=== PATIENT | male | born 1950 | race Caucasian/White ===

== ENCOUNTER 2017-05-22 21:23 | Emergency (ER) | payer MEDICARE, MEDICAID ==
[~2017-05-22] VITALS: Ht 172.7 cm; Wt 99.8 kg
--- NOTE | 2017-05-22 21:52 | ED General ---
General Stated Complaint: HEADACHE;TROUBLE SLEEPING;NAUSEA Source of Information: Patient Exam Limitations: No Limitations History of Present Illness Time Seen by Provider: 21:51 Initial Comments To ER with a severe headache form 2 days, intermittent abdominal pain since this morning, sleeplessness for 3 days.: He was seen at [facility] this morning without diagnosis. Coincidentally, he ran out of his 30 mg morphine tablets which he takes twice a day 3-1/2 days ago. Timing/Duration: 1-2 Days Associated Systoms: Headaches, Nausea/Vomiting Allergies and Home Medications Allergies Coded Allergies: No Known Allergies (Verified Allergy, Unknown, 01/15/07) Constitutional: see HPI, diaphoresis EENTM: see HPI Respiratory: no symptoms reported Cardiovascular: no symptoms reported Gastrointestinal: abdominal pain (intermittent abdominal cramping) Genitourinary: no symptoms reported Musculoskeletal: see HPI, back pain (chronic and unchanged) Skin: no symptoms reported Psychiatric/Neurological: No Symptoms Reported Hematologic/Lymphatic: No Symptoms Reported Immunological/Allergic: no symptoms reported Past Kuhqdmn-Psjbud-Luiazk Hx Patient Social History Recent Foreign Travel: No Contact w/Someone Who Travel: No Physical Exam Vital Signs Vital Sign - Last 12Hours 05/22/17 21:41 Temp 98.5 Pulse 70 Resp 28 B/P (MAP) 170/80 Pulse Ox 96 O2 Delivery Room Air Capillary Refill : General Appearance: No Apparent Distress, WD/WN Eyes: Bilateral Eye Normal Inspection, Bilateral Eye PERRL, Bilateral Eye EOMI HEENT: PERRL/EOMI, TMs Normal Respiratory: No Accessory Muscle Use, No Respiratory Distress Cardiovascular: Regular Rate, Rhythm, Normal Peripheral Pulses Gastrointestinal: Non Tender, Soft Extremity: Normal Capillary Refill, No Calf Tenderness Neurologic/Psychiatric: Alert, Oriented x3, No Motor/Sensory Deficits Skin: Normal Color, Warm/Dry Progress/Results/Core Measures Results/Orders Lab Results Laboratory Tests Test 05/22/17 21:44 05/22/17 22:15 Range/Units White Blood Count 8.4 4.3-11.0 10^3/uL Red Blood Count 4.49 4.35-5.85 10^6/uL Hemoglobin 14.0 13.3-17.7 G/DL Hematocrit 41 40-54 % Mean Corpuscular Volume 91 80-99 FL Mean Corpuscular Hemoglobin 31 25-34 PG Mean Corpuscular Hemoglobin Concent 34 32-36 G/DL Red Cell Distribution Width 13.3 10.0-14.5 % Platelet Count 263 130-400 10^3/uL Mean Platelet Volume 10.8 H 7.4-10.4 FL Neutrophils (%) (Auto) 53 42-75 % Lymphocytes (%) (Auto) 34 12-44 % Monocytes (%) (Auto) 10 0-12 % Eosinophils (%) (Auto) 3 0-10 % Basophils (%) (Auto) 1 0-10 % Neutrophils # (Auto) 4.5 1.8-7.8 X 10^3 Lymphocytes # (Auto) 2.8 1.0-4.0 X 10^3 Monocytes # (Auto) 0.8 0.0-1.0 X 10^3 Eosinophils # (Auto) 0.3 0.0-0.3 10^3/uL Basophils # (Auto) 0.1 0.0-0.1 10^3/uL Sodium Level 138 135-145 MMOL/L Potassium Level 3.9 3.6-5.0 MMOL/L Chloride Level 107 98-107 MMOL/L Carbon Dioxide Level 20 L 21-32 MMOL/L Anion Gap 11 5-14 MMOL/L Blood Urea Nitrogen 17 7-18 MG/DL Creatinine 1.37 H 0.60-1.30 MG/DL Estimat Glomerular Filtration Rate 52 BUN/Creatinine Ratio 12 Glucose Level 115 H 70-105 MG/DL Calcium Level 9.6 8.5-10.1 MG/DL Total Bilirubin 1.2 H 0.1-1.0 MG/DL Aspartate Amino Transf (AST/SGOT) 63 H 5-34 U/L Alanine Aminotransferase (ALT/SGPT) 49 0-55 U/L Alkaline Phosphatase 161 H 40-136 U/L Total Protein 8.2 6.4-8.2 GM/DL Albumin 3.9 3.2-4.5 GM/DL Urine Color YELLOW Urine Clarity CLEAR Urine pH 5 5-9 Urine Specific [place] 1.015 L 1.016-1.022 Urine Protein 1+ H NEGATIVE Urine Glucose (UA) NEGATIVE NEGATIVE Urine Ketones NEGATIVE NEGATIVE Urine Nitrite NEGATIVE NEGATIVE Urine Bilirubin NEGATIVE NEGATIVE Urine Urobilinogen 1 NORMAL MG/DL Urine Leukocyte Esterase NEGATIVE NEGATIVE Urine RBC (Auto) NEGATIVE NEGATIVE Urine RBC NONE /HPF Urine WBC NONE /HPF Urine Crystals NONE /LPF Urine Bacteria NONE /HPF Urine Casts NONE /LPF Urine Mucus NEGATIVE /LPF Urine Culture Indicated NO My Orders Orders - EMELY BREEN APRN Morphine Injection (Morphine Injection (05/22/17 22:00) Cbc With Automated Diff (05/22/17 21:49) Comprehensive Metabolic Panel (05/22/17 21:49) Saline Lock/Iv-Start (05/22/17 21:49) Ua Culture If Indicated (05/22/17 21:49) Ct Head Wo (05/22/17 21:49) Ns Iv 1000 Ml (Sodium Chloride 0.9%) (05/22/17 22:45) Ondansetron Injection (Zofran Injectio (05/22/17 22:45) Morphine Er Tablet (Ms Contin Tablet) (05/22/17 22:45) Clonidine Patch (Catapres Patch) (05/22/17 22:45) Medications Given in ED Current Medications Medications Dose Ordered Sig/Marly Route Start Time Stop Time Status Last Admin Dose Admin Morphine Sulfate 6 mg ONCE ONCE IVP 05/22/17 22:00 05/22/17 22:01 DC 05/22/17 22:15 6 MG Vital Signs/I&O Vital Sign - Last 12Hours 05/22/17 21:41 Temp 98.5 Pulse 70 Resp 28 B/P (MAP) 170/80 Pulse Ox 96 O2 Delivery Room Air Departure Communication Progress Notes He states that he can get his pain pills filled every 28 days and she tracks the supply. Most recently was filled on so he is actually due to be refilled. He states "I don't know why I didn't get them filled earlier this week 9-CT scan per stat read shows no acute hemorrhage, midline shift, mass effect or hydrocephalus. Mild generalized atrophy and presumed small vessel chronic ischemic changes, visualized paranasal sinuses and mastoid air cells are clear. There is no identifiable acute intracranial abnormality or source of the patient's headache today. " Impression Impression: Primary Impression: Opiate withdrawal Disposition: HOME, SELF-CARE Condition: Stable Departure-Patient Inst. Decision time for Depature: 22:47 Referrals: DENICE MEDINA DO (PCP/Family) Primary Care Physician Patient Instructions: Prescription Drug Withdrawal (DC) Add. Discharge Instructions: 1. Call replaced by [facility] tomorrow morning at 8 a.m. to tell them that you have run out of your morphine tablets and they were due to be refilled a few days ago. Copy Copies To 1: DERRELL MCBRIDE MD, PETER J APRN May 22, 2017 21:52
[2017-05-22] MEDS ORDERED: morphine INJ 10 MG/ML 1ML (SYR OR VIAL) IVP ONE (22:00)
[2017-05-22 22:12] LABS: BASOPHILS # (AUTO) 0.1 10^3/uL (0.0-0.1); BASOPHILS % (AUTO) 1 % (0-10); EOSINOPHILS # (AUTO) 0.3 10^3/uL (0.0-0.3); EOSINOPHILS % (AUTO) 3 % (0-10); LYMPHOCYTES # (AUTO) 2.8 X 10^3 (1.0-4.0); LYMPHOCYTES % (AUTO) 34 % (12-44); MEAN CORPUSCULAR HEMOGLOBIN 31 PG (25-34); MEAN CORPUSCULAR HGB CONC 34 G/DL (32-36); MEAN CORPUSCULAR VOLUME 91 FL (80-99); MEAN PLATELET VOLUME 10.8 FL (7.4-10.4); MONOCYTES # (AUTO) 0.8 X 10^3 (0.0-1.0); MONOCYTES % (AUTO) 10 % (0-12); NEUTROPHILS # (AUTO) 4.5 X 10^3 (1.8-7.8); NEUTROPHILS % (AUTO) 53 % (42-75); PLATELET COUNT 263 10^3/uL (130-400); RED BLOOD COUNT 4.49 10^6/uL (4.35-5.85); RED CELL DISTRIBUTION WIDTH 13.3 % (10.0-14.5); WHITE BLOOD COUNT 8.4 10^3/uL (4.3-11.0)
[2017-05-22 22:22] LABS: ALBUMIN 3.9 GM/DL (3.2-4.5); BILIRUBIN,TOTAL 1.2 MG/DL (0.1-1.0); CALCIUM 9.6 MG/DL (8.5-10.1); CREATININE SERUM 1.37 MG/DL (0.60-1.30); POTASSIUM 3.9 MMOL/L (3.6-5.0); TOTAL PROTEIN 8.2 GM/DL (6.4-8.2)
[2017-05-22 22:32] LABS: BILIRUBIN,URINE NEGATIVE (NEGATIVE); KETONES,URINE NEGATIVE (NEGATIVE); LEUKOCYTE ESTERASE ,URINE NEGATIVE (NEGATIVE); NITRITE,URINE NEGATIVE (NEGATIVE); PH,URINE 5 (5-9); PROTEIN,URINE 1+ (NEGATIVE); UROBILINOGEN,URINE 1 MG/DL (NORMAL)
[2017-05-22] MEDS ORDERED: NS IV 1000 ML 1,000 ML IV SCH (22:45)
[2017-05-22] MEDS ORDERED: ONDANSETRON 4 MG/2 ML (SDV) Z0FRAN IVP ONE (22:45)
[2017-05-22] MEDS ORDERED: morphine ER 30 MG (MS CONTIN) TAB PO ONE (22:45)
[2017-05-22] MEDS ORDERED: cloNIDine 0.1 MG PATCH (CATAPRES TTS) TDSY TD ONE (22:45)
[2017-05-23 00:02] VITALS: BP 157/77
--- NOTE | 2017-05-23 08:04 | Diagnostic Imaging Report ---
PROCEDURE: CT head without contrast. TECHNIQUE: Multiple contiguous axial images were obtained through the brain without the use of intravenous contrast. INDICATION: Headache, unable to sleep. Stomach issues for 3 days. EXAMINATION: CT brain without contrast, 05/22/2017. COMPARISONS: None. FINDINGS: There is mild atrophy. There is no evidence for acute hemorrhage or infarct. No mass, mass effect or midline shift is seen and there is no hydrocephalus. Mild chronic ischemic changes seen in periventricular distribution. The calvarium is intact. The paranasal sinuses clear. Mastoid air cells are unremarkable. IMPRESSION: 1. Chronic change. No acute abnormality. Findings agree with the preliminary report. Dictated by: Dictated on workstation # [id number]
== END 2017-05-23 00:02 | disposition home or self-care (01) ==
LOC: EDUNIT# 21:23 → ER 21:26
DX: F11.23 Opioid dependence with withdrawal (principal)
CPT/HCPCS: 36415; 70450; 80053; 81000; 85025; 96374; 96375

== ENCOUNTER → 2017-07-28 | Outpatient (CLI) | payer MEDICARE, MEDICAID ==
[~2017-07-28] MED LIST: ATOR20TA66 PO; BACL20TA PO; CIPR500T4 PO; GABA-488; INSU100I14 SQ; INSU100I29 SQ; LACT20SO2 PO; LISI-552 PO; LORA1TAB PO; METO50TA2 PO; MORP-33; NABU500T PO; OMEP20CA12 PO; ONDA4TAB10 PO
[2017-07-28 17:04] LABS: BASOPHILS % (AUTO) 1 % (0-10); EOSINOPHILS # (AUTO) 0.2 10^3/uL (0.0-0.3); EOSINOPHILS % (AUTO) 4 % (0-10); LYMPHOCYTES # (AUTO) 2.1 X 10^3 (1.0-4.0); LYMPHOCYTES % (AUTO) 36 % (12-44); MEAN CORPUSCULAR HEMOGLOBIN 33 PG (25-34); MEAN CORPUSCULAR HGB CONC 34 G/DL (32-36); MEAN CORPUSCULAR VOLUME 97 FL (80-99); MEAN PLATELET VOLUME 10.5 FL (7.4-10.4); MONOCYTES # (AUTO) 0.9 X 10^3 (0.0-1.0); MONOCYTES % (AUTO) 15 % (0-12); NEUTROPHILS # (AUTO) 2.7 X 10^3 (1.8-7.8); NEUTROPHILS % (AUTO) 45 % (42-75); PLATELET COUNT 219 10^3/uL (130-400); RED BLOOD COUNT 4.05 10^6/uL (4.35-5.85); RED CELL DISTRIBUTION WIDTH 14.7 % (10.0-14.5)
[2017-07-28 17:24] LABS: ALBUMIN 3.5 GM/DL (3.2-4.5); BILIRUBIN,TOTAL 0.7 MG/DL (0.1-1.0); CALCIUM 8.9 MG/DL (8.5-10.1); CREATININE SERUM 1.5 MG/DL (0.60-1.30); TOTAL PROTEIN 7.5 GM/DL (6.4-8.2)
== END ==
LOC: LAB 16:52
PROVIDERS: ATTEND Nurse Practitioner
DX: R11.2 Nausea with vomiting, unspecified (principal)
CPT/HCPCS: 36415; 80053; 82140; 85025

== ENCOUNTER 2017-09-09 07:16 | Day surgery (SDC) | payer MEDICARE, MEDICAID ==
[~2017-09-09] VITALS: Ht 175.3 cm; Wt 109.9 kg
[2017-09-09] VITALS (12 sets, daily range): BP systolic 120–179; BP diastolic 69–97
[~2017-09-09 07:16] MED LIST changes: +METO50TA15 PO; -METO50TA2 PO
[2017-09-09 07:49] LABS: MEAN PLATELET VOLUME 9.9 FL (7.4-10.4); RED BLOOD COUNT 4.03 10^6/uL (4.35-5.85); WHITE BLOOD COUNT 8.4 10^3/uL (4.3-11.0)
[2017-09-09 08:00] LABS: PROTHROMBIN TIME PATIENT 13.6 SEC (12.2-14.7)
[2017-09-09] MEDS ORDERED: LIDOCAINE 1% INJ 20 ML (XYLOCAINE) VIAL INJ ONE (08:00)
[2017-09-09] MEDS ORDERED: fentaNYL INJECTION 100 MCG/2 ML AMP IVP PRN ×3 (08:00→10:00)
[2017-09-09] MEDS ORDERED: LIDOCAINE 1% INJ 50 ML (XYLOCAINE) VIAL ONE (08:20)
[2017-09-09] MEDS ORDERED: fentaNYL INJECTION 100 MCG/2 ML AMP ONE (08:20)
--- NOTE | 2017-09-09 09:01 | Pre-Procedure Progress Note ---
Pre-Procedure Progress Note H&P Reviewed The H&P was reviewed, patient examined and no changes noted. Date H&P Reviewed: Sep 09, 2017 Time H&P Reviewed: 08:30 Pre-Procedure Diagnosis: liver cirrhosis CHIRAG DOWD MD Sep 09, 2017 09:01
[2017-09-09] MEDS ORDERED: oxyCODONE/APAP 5/325MG (PERCOCET 5) TABLET PO PRN (09:30)
[2017-09-09] MEDS ORDERED: RT-ALBUINH IH (10:02)
--- NOTE | 2017-09-09 11:38 | Diagnostic Imaging Report ---
EXAMINATION: US-guided core biopsy-liver. INDICATION: Cirrhosis. Current history and physical and other medical records are reviewed prior to the procedure. CONSENT: Informed consent was obtained from the patient. The risks, benefits, potential complications and alternatives were reviewed and all questions answered to the patient's satisfaction. The patient's vital signs, cardiac rhythm, and pulse oximetry with observed throughout the procedure by qualified nursing personnel. Sedation/medications: Fentanyl 75 mcg IV. FINDINGS: The liver is coarse in echotexture with no focal mass. PROCEDURE: After maximal sterile barrier technique preparation and draping, 1% lidocaine was utilized for local anesthesia. With the patient in supine position, and via anterior approach, a 17-gauge guide needle is introduced into the right hepatic lobe under live ultrasound guidance. After confirming adequate positioning with saved ultrasound images, multiple 18 gauge core biopsy specimens were obtained. Gelfoam injected in the tract as the guide needle was removed The patient tolerated the procedure well with no immediate complications. IMPRESSION: Successful US-guided core biopsy of the liver for a random parenchymal biopsy taken from the right hepatic lobe. Dictated by: Dictated on workstation # [id number]
== END 2017-09-09 13:10 | disposition home or self-care (01) ==
LOC: RAD 07:16
PROVIDERS: ATTEND Pediatrics
DX: K74.60 Unspecified cirrhosis of liver (principal)
CPT/HCPCS: 36415; 76942; 82962; 85027; 85610; 85730

== ENCOUNTER → 2018-01-15 | Outpatient (CLI) | payer MEDICARE, MEDICAID ==
[~2018-01-15] VITALS: Ht 175.3 cm; Wt 106.6 kg
[~2018-01-15] MED LIST changes: +CATHETER FLUSH 10 ML SYR IV PRN; +REGADENOSON 0.4 MG/5 ML SYR (LEXISCAN) IV ONE; +RT-ALBUINH IH
[2018-01-15 08:43] VITALS: BP 150/79
[2018-01-15 08:54] VITALS: BP 137/69
[2018-01-15 08:59] VITALS: BP 167/86
[2018-01-15 21:34] VITALS: BP 150/76
--- NOTE | 2018-01-15 21:34 | Cardiology Stress Test Report ---
Stress Test Report Type of NM Stress Test: Test Type: LEXISCAN 0.4MG/5ML Date of Procedure/Referring: Date of Procedure: Jan 15, 2018 PCP Merari Keating MD Admitting Physician Merari Keating MD Indications: Chest pain Baseline Heart Rate: 57 Baseline Blood Pressure: Blood Pressure Systolic: 150 Blood Pressure Diastolic: 76 Baseline EKG: Baseline EKG: Sinus rhythm Summary: The patient was brought to the stress level off informed consent was taken. Lexiscan stress test was performed according to the protocol. 0.4 mg of IV Lexiscan was given. Low-grade exercise was performed. Baseline EKG showed sinus rhythm at 57 BPM and blood pressure 150/76 mmHg. Maximum heart rate of 85 bpm and blood pressure 167/86 mmHg. Patient did not complain of any chest pain, EKG changes or arrhythmias. 10.83 mCi of Myoview was given for rest imaging and 32.5 mCi of Myoview was given for stress imaging. Transient ischemic dilatation score was 1.01. Ejection fraction of 67 percent with no wall motion abnormalities. Normal myocardial perfusion during stress and rest. Conclusion: Pharmacological stress test was negative for ischemia. Normal LV function with no wall motion abnormalities. Normal myocardial perfusion imaging during stress and rest. Salinas LANGSTON MD Jan 15, 2018 9:34 pm
== END ==
LOC: CARD 07:32
PROVIDERS: ATTEND Pediatrics
DX: R07.2 Precordial pain (principal)
CPT/HCPCS: 78452; 93017

== ENCOUNTER 2019-04-03 09:56 | Emergency (ER) | payer MEDICARE, MEDICAID ==
[~2019-04-03] VITALS: Ht 175.3 cm; Wt 108.9 kg
[~2019-04-03 09:56] MED LIST changes: -CATHETER FLUSH 10 ML SYR IV PRN; -REGADENOSON 0.4 MG/5 ML SYR (LEXISCAN) IV ONE
[2019-04-03] MEDS ORDERED: ASPIRIN 81 MG CHEW (CHILDREN'S ASA) PO ONE ×2 (10:00→10:15)
--- NOTE | 2019-04-03 10:00 | NUR ---
Pt has no idea of any medication pt takes.
[2019-04-03 10:13] LABS: BASOPHILS % (AUTO) 1 % (0-10); EOSINOPHILS # (AUTO) 0.2 10^3/uL (0.0-0.3); EOSINOPHILS % (AUTO) 3 % (0-10); HEMATOCRIT 38 % (40-54); HEMOGLOBIN 12.8 G/DL (13.3-17.7); LYMPHOCYTES # (AUTO) 1.6 X 10^3 (1.0-4.0); LYMPHOCYTES % (AUTO) 29 % (12-44); MEAN CORPUSCULAR HEMOGLOBIN 34 PG (25-34); MEAN CORPUSCULAR HGB CONC 34 G/DL (32-36); MEAN CORPUSCULAR VOLUME 100 FL (80-99); MEAN PLATELET VOLUME 9.9 FL (7.4-10.4); MONOCYTES # (AUTO) 0.7 X 10^3 (0.0-1.0); MONOCYTES % (AUTO) 12 % (0-12); NEUTROPHILS % (AUTO) 55 % (42-75); PLATELET COUNT 207 10^3/uL (130-400); RED CELL DISTRIBUTION WIDTH 14.3 % (10.0-14.5); WHITE BLOOD COUNT 5.4 10^3/uL (4.3-11.0)
[2019-04-03] MEDS ORDERED: BENZONATATE 100 MG (TESSALON) CAPSULE PO SCH (10:15)
--- NOTE | 2019-04-03 10:18 | ED Chest Pain ---
General Stated Complaint: CHEST PAIN Source: patient (VAGUE / VERY LIMITED HISTORIAN, AND DOES NOT KNOW ANY OF HIS MEDICATIONS OR WHAT HE TAKES THEM FOR. ) History of Present Illness Date Seen by Provider: Apr 03, 2019 Time Seen by Provider: 09:57 Initial Comments PT ARRIVES VIA POV FROM HOME C/O MID CHEST PAIN SINCE WAKING THIS AM AT 0600 STATES PAIN WAS SEVERE EARLIER--06/08, IS NOT BAD NOW BUT IS STILL PRESENT 01/06 AND HAS NOT GONE AWAY NOTHING WORSENS OR IMPROVES PAIN NO SHORTNESS OF BREATH HAS HAD A PRODUCTIVE COUGH FOR A COUPLE OF DAYS--CLEAR SPUTUM NO FEVER NO CHANGE IN CHRONIC LEG SWELLING NO HISTORY OF SIMILAR PCP: DR. Rivera KELLEY AT [facility] Allergies and Home Medications Allergies Coded Allergies: NKANo Known Allergies (Verified Allergy, Unknown, 01/15/07) acetaminophen (Verified Adverse Reaction, Unknown, told not to take d/t Liver function, 09/09/17) LIVER PROBLEMS Home Medications Albuterol Sulfate 1 Puff Puff, 2 PUFF IH QID, (Reported) 1 PUFF = 90 MCG Atorvastatin Calcium 20 Mg Tablet, 20 MG PO HS, (Reported) Insulin Aspart 300 Units/3 Ml Solution, 5 UNITS SQ AC Prescribed by: LATRELL AMEZQUITA on 07/11/17850 Insulin Detemir 100 Unit/1 Ml Insuln.pen, 30 UNITS SQ HS Prescribed by: LATRELL AMEZQUITA on 07/11/17850 Lactulose 20 Gm/30 Ml Solution, 10 GM PO DAILY Prescribed by: LATRELL AMEZQUITA on 07/11/17850 Lisinopril 20 Mg Tablet, 20 MG PO DAILY Prescribed by: LATRELL AMEZQUITA on 07/11/17850 Metoprolol Tartrate 50 Mg Tablet, 50 MG PO BID, (Reported) Omeprazole 20 Mg Capsule.dr, 20 MG PO DAILY, (Reported) Ondansetron HCl 4 Mg Tablet, 4 MG PO TID, (Reported) Review of Systems Review of Systems Constitutional: no symptoms reported; No chills, No diaphoresis, No fever EENTM: No Symptoms Reported Respiratory: See HPI, Cough; Denies Shortness of Air Cardiovascular: See HPI, Chest Pain, Edema; Denies Irregular Heart Rate, Denies Lightheadedness, Denies Palpitations, Denies Syncope Gastrointestinal: No Symptoms Reported Genitourinary: No Symptoms Reported Musculoskeletal: no symptoms reported Skin: no symptoms reported Psychiatric/Neurological: No Symptoms Reported Endocrine: No Symptoms Reported Hematologic/Lymphatic: No Symptoms Reported Past Gcfcydu-Nxymli-Oyqswo Hx Patient Social History Alcohol Use: Occasionally Uses (VERY HEAVY USE IN THE PAST, STATES NOW HE ONLY HAS 2-3 BEERS ON OCCASION) Recreational Drug Use: Yes (THC) Drug of Choice: THC Smoking Status: Former Smoker (1 09/30 PPD, QUIT 2004) Type Used: Cigarettes 2nd Hand Smoke Exposure: No Recent Foreign Travel: No Contact w/Someone Who Travel: No Recent Hopitalizations: Yes (MULTI E.D. VISITS) Immunizations Up To Date Tetanus Booster (TDap): Unknown Seasonal Allergies Seasonal Allergies: No Past Medical History Surgeries: Yes (LIVER BIOPSY X 2; HERNIA REPAIR) Abdominal Respiratory: Yes COPD Currently Using CPAP: No Currently Using BIPAP: No Cardiac: Yes High Cholesterol, Hypertension Neurological: Yes Dementia (PER OLD CHART), Headaches /Migraines Reproductive Disorders: No Genitourinary: No Gastrointestinal: Yes Gastroesophageal Reflux, Liver Disease/Jaundice, Cirrhosis Musculoskeletal: Yes Arthritis, Chronic Back Pain Endocrine: Yes Diabetes, Insulin dep HEENT: No Cancer: No Psychosocial: Yes Sleep Difficulties Integumentary: No Blood Disorders: No Family Medical History Deafness or hearing loss 19 MOTHER, Onset:Unknown Diabetes mellitus 19 FATHER, Onset:Unknown G8 BROTHER, Onset:Unknown G8 SISTER, Onset:Unknown Hypertension 19 FATHER, Onset:Unknown G8 SISTER, Onset:Unknown Diabetes, Hypertension, Other Conditions/Hx Physical Exam Vital Signs Vital Signs - First Documented 04/03/19 09:56 Temp 97.5 Pulse 56 Resp 21 B/P (MAP) 136/73 (94) Pulse Ox 97 O2 Delivery Room Air Capillary Refill : Height, Weight, BMI Height: 5'9.00" Weight: 235lbs. 0.0oz. 106.681299tu; 34.7 BMI Method:Estimated General Appearance: No Apparent Distress, WD/WN, Other (AMBULATES IN WITHOUT DIFFICULTY. 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 Norm as Tested Skin: Normal Color, Warm/Dry, Tattoos/Piercings (TATTOOS) Progress/Results/Core Measures Results/Orders Lab Results Laboratory Tests Test 04/03/19 09:57 Range/Units White Blood Count 5.4 4.3-11.0 10^3/uL Red Blood Count 3.79 L 4.35-5.85 10^6/uL Hemoglobin 12.8 L 13.3-17.7 G/DL Hematocrit 38 L 40-54 % Mean Corpuscular Volume 100 H 80-99 FL Mean Corpuscular Hemoglobin 34 25-34 PG Mean Corpuscular Hemoglobin Concent 34 32-36 G/DL Red Cell Distribution Width 14.3 10.0-14.5 % Platelet Count 207 130-400 10^3/uL Mean Platelet Volume 9.9 7.4-10.4 FL Neutrophils (%) (Auto) 55 42-75 % Lymphocytes (%) (Auto) 29 12-44 % Monocytes (%) (Auto) 12 0-12 % Eosinophils (%) (Auto) 3 0-10 % Basophils (%) (Auto) 1 0-10 % Neutrophils # (Auto) 3.0 1.8-7.8 X 10^3 Lymphocytes # (Auto) 1.6 1.0-4.0 X 10^3 Monocytes # (Auto) 0.7 0.0-1.0 X 10^3 Eosinophils # (Auto) 0.2 0.0-0.3 10^3/uL Basophils # (Auto) 0.0 0.0-0.1 10^3/uL Prothrombin Time 14.3 12.2-14.7 SEC INR Comment 1.1 0.8-1.4 Activated Partial Thromboplast Time 32 24-35 SEC Sodium Level 136 135-145 MMOL/L Potassium Level 4.3 3.6-5.0 MMOL/L Chloride Level 107 98-107 MMOL/L Carbon Dioxide Level 21 21-32 MMOL/L Anion Gap 8 5-14 MMOL/L Blood Urea Nitrogen 17 7-18 MG/DL Creatinine 1.24 0.60-1.30 MG/DL Estimat Glomerular Filtration Rate 57 BUN/Creatinine Ratio 14 Glucose Level 154 H 70-105 MG/DL Calcium Level 8.5 8.5-10.1 MG/DL Corrected Calcium 9.1 8.5-10.1 MG/DL Magnesium Level 1.8 1.8-2.4 MG/DL Total Bilirubin 0.7 0.1-1.0 MG/DL Aspartate Amino Transf (AST/SGOT) 44 H 5-34 U/L Alanine Aminotransferase (ALT/SGPT) 28 0-55 U/L Alkaline Phosphatase 100 40-136 U/L Total Creatine Kinase 40 30-200 U/L Creatine Kinase MB 1.2 <6.6 NG/ML Myoglobin 40.6 10.0-92.0 NG/ML Troponin I < 0.028 <0.028 NG/ML B-Type Natriuretic Peptide 246.3 H <100.0 PG/ML Total Protein 6.6 6.4-8.2 GM/DL Albumin 3.2 3.2-4.5 GM/DL Amylase Level 85 25-125 U/L Lipase 117 H 8-78 U/L My Orders Orders - DONNY NEVES DO Amylase (04/03/19 09:58) Cbc With Automated Diff (04/03/19 09:58) Comprehensive Metabolic Panel (04/03/19 09:58) Creatine Kinase (04/03/19 09:58) Creatine Kinase Mb (04/03/19 09:58) Lipase (04/03/19 09:58) Partial Thromboplastin Time (04/03/19 09:58) Protime With Inr (04/03/19 09:58) Troponin I (04/03/19 09:58) Chest 1 View, Ap/Pa Only (04/03/19 09:58) O2 (04/03/19 09:58) Ekg Tracing (04/03/19 09:58) Aspirin Chewable Tablet (Baby Aspirin Ch (04/03/19 10:00) BNP (04/03/19 09:58) Monitor-Rhythm Ecg Trace Only (04/03/19 09:58) Ed Iv/Invasive Line Start (04/03/19 09:58) Aspirin Chewable Tablet (Baby Aspirin Ch (04/03/19 10:15) Benzonatate Capsule (Tessalon Perles) (04/03/19 10:15) Magnesium (04/03/19 09:57) Myoglobin Serum (04/03/19 09:57) Ct Angio Chest W (04/03/19 10:48) Pantoprazole Injection (Protonix Injecti (04/03/19 11:00) Ketorolac Injection (Toradol Injection) (04/03/19 10:51) Iohexol Injection (Omnipaque 350 Mg/Ml 1 (04/03/19 11:00) Received Contrast (Hold Metformin- Contr (04/03/19 11:00) Sodium Chloride Flush (Catheter Flush Sy (04/03/19 11:00) Ns (Ivpb) (Sodium Chloride 0.9% Ivpb Bag (04/03/19 11:00) Medications Given in ED Current Medications Medications Dose Ordered Sig/Marly Route Start Time Stop Time Status Last Admin Dose Admin Aspirin 324 mg ONCE ONCE PO 04/03/19 10:00 04/03/19 10:01 DC 04/03/19 10:19 324 MG Iohexol 100 ml ONCE ONCE IV 04/03/19 11:00 04/03/19 11:01 DC 04/03/19 11:12 84 ML Pantoprazole 40 mg ONCE ONCE IV 04/03/19 11:00 04/03/19 11:01 DC 04/03/19 11:21 40 MG Sodium Chloride 10 ml NEEDED PRN IV 04/03/19 11:00 04/03/19 11:13 10 ML Sodium Chloride 100 ml ONCE ONCE IV 04/03/19 11:00 04/03/19 11:01 DC 04/03/19 11:13 80 ML Vital Signs/I&O 04/03/19 04/03/19 09:56 09:56 Temp 97.5 Pulse 56 Resp 21 B/P (MAP) 136/73 (94) Pulse Ox 97 O2 Delivery Room Air Room Air Progress Progress Note : Progress Note PAIN RESOLVED WITH TORADOL COUGH SUBSIDED VITALS REMAINED STABLE, NO DETERIORATION IN PT'S CONDITION DURING ER STAY Initial ECG Impression Date: Apr 03, 2019 Initial ECG Impression Time: 10:01 Initial ECG Rate: 56 Initial ECG Rhythm: Normal Sinus Initial ECG Comparisson: No Previous ECG Available Diagnostic Imaging Comments CXR--NO ACUTE PROCESS, PER RADIOLOGIST REPORT AT 1032 CT CHEST ANGIOGRAM--NO P.E., 5 CM ASCENDING AORTIC ANEURYSM, NO EVIDENCE OF DISSECTION. PER RADIOLOGIST REPORT AT 1145 Reviewed: Reviewed by Me Departure Communication (Admissions) 1145--SPOKE WITH DR. QUIROGA, REGISTRATION REPRESENTATIVE, HE ADVISES TRANSFER IF POSSIBLE. BUT WILL KEEP HERE OVERNIGHT IF DR. ODOM AGREEABLE 1152--SPOKE DR. OODM, HOSPITALIST, SHE DOES NOT FEEL COMFORTABLE KEEPING PT HERE, ADVISES TRANSFER. BOTH [facility] AND [facility] IN [place] ARE BOTH ON DIVERSION DISCUSSED WITH PT AND DAUGHTERS, AND PT IS AGREEABLE TO TRANSFER TO [facility] IN [place] 1206--CALLED [facility] 1212--CALLED ER COMMS, SPOKE WITH DR. KUMARI, ER PHYSICIAN, ACCEPTS PT FOR TRANSFER. Impression Primary Impression: Chest pain Additional Impressions: Ascending aortic aneurysm HTN (hypertension) IDDM (insulin dependent diabetes mellitus) Disposition: 02 XFER SHT-TRM HOSP Condition: Improved Transfer Transfer Facility: [facility] Method of Transfer: EMS Departure-Patient Inst. Referrals: RONALD KELLEY MD (PCP) Primary Care Physician DENICE MEDINA DO (Family) Primary Care Physician DONNY NEVES DO Apr 03, 2019 10:18
[2019-04-03 10:21] LABS: INR 1.1 (0.8-1.4); PROTHROMBIN TIME PATIENT 14.3 SEC (12.2-14.7)
--- NOTE | 2019-04-03 10:26 | Diagnostic Imaging Report ---
INDICATION: Chest pain and cough. COMPARISON: 07/07/2017. DISCUSSION: Single portable upright view of the chest was obtained. Stable normal heart size. No focal consolidation, pleural fluid, or pneumothorax. No osseous abnormality. IMPRESSION: 1. Negative portable chest. Dictated by: Dictated on workstation # [id number]
[2019-04-03 10:31] LABS: ALANINE AMINOTRANSFERASE 28 U/L (0-55); ALBUMIN 3.2 GM/DL (3.2-4.5); ALKALINE PHOSPHATASE 100 U/L (40-136); AMYLASE 85 U/L (25-125); BILIRUBIN,TOTAL 0.7 MG/DL (0.1-1.0); BUN/CREATININE RATIO 14; CALCIUM 8.5 MG/DL (8.5-10.1); CARBON DIOXIDE 21 MMOL/L (21-32); CHLORIDE 107 MMOL/L (98-107); CREATINE KINASE 40 U/L (30-200); CREATININE SERUM 1.24 MG/DL (0.60-1.30); GFR ESTIMATED 57; GLUCOSE 154 MG/DL (70-105); LIPASE 117 U/L (8-78); MAGNESIUM 1.8 MG/DL (1.8-2.4); POTASSIUM 4.3 MMOL/L (3.6-5.0); SODIUM 136 MMOL/L (135-145); TOTAL PROTEIN 6.6 GM/DL (6.4-8.2)
[2019-04-03 10:38] LABS: CREATINE KINASE MB 1.2 NG/ML (<6.6)
[2019-04-03] MEDS ORDERED: KETOROLAC 30 MG/ML VIAL IVP STA (10:51)
[2019-04-03] MEDS ORDERED: HOLD METFORMIN - RECEIVED CONTRAST 20 ML VIAL IV SCH (11:00)
[2019-04-03] MEDS ORDERED: CATHETER FLUSH 10 ML SYR IV PRN (11:00)
[2019-04-03] MEDS ORDERED: NS 100 ML (IVPB) BAG IV ONE (11:00)
[2019-04-03] MEDS ORDERED: IOHEXOL 350 MG/ML 100 ML (OMNIPAQUE 350) VIAL IV ONE (11:00)
[2019-04-03] MEDS ORDERED: PANTOPRAZOLE 40 MG (PROTONIX) VIAL IV ONE (11:00)
--- NOTE | 2019-04-03 11:30 | Diagnostic Imaging Report ---
PROCEDURE: CT angiography of the chest with contrast. TECHNIQUE: Multiple contiguous axial images were obtained through the chest after uneventful bolus administration of intravenous contrast. 2D reconstructed CTA MIP acquisitions were also performed. Auto Exposure Controls were utilized during the CT exam to meet ALARA standards for radiation dose reduction. INDICATION: Chest pain starting this morning, cough and dyspnea for 2 days. COMPARISON: None. DISCUSSION: No focal consolidation or pulmonary lesion. No pulmonary embolus is identified. Normal heart size. No pleural or pericardial fluid. No pathologically enlarged lymph nodes are identified. The ascending aorta is aneurysmal measuring up to 5 cm. The aortic root is not involved. Mild gynecomastia. No acute osseous abnormality. IMPRESSION: 1. No pulmonary embolus is identified. 2. Aneurysmal dilatation of the ascending aorta measuring up to 5 cm. Dictated by: Dictated on workstation # [id number]
--- NOTE | 2019-04-03 12:07 | NUR ---
Dr. Rodriguez in room.
[2019-04-03 12:57] VITALS: BP 119/86
--- NOTE | 2019-04-03 12:59 | NUR ---
Pt requests DNR status. [place] notified.
== END 2019-04-03 13:00 | disposition short-term general hospital (02) ==
LOC: EDUNIT# 09:56 → ER 09:58
DX: I71.2 Thoracic aortic aneurysm, without rupture (principal); I10 Essential (primary) hypertension; E78.00 Pure hypercholesterolemia, unspecified; E11.9 Type 2 diabetes mellitus without complications; F03.90 Unspecified dementia, unspecified severity, without behavioral disturbance, psychotic disturbance, mood disturbance, and anxiety; G43.909 Migraine, unspecified, not intractable, without status migrainosus; K21.9 Gastro-esophageal reflux disease without esophagitis; F12.10 Cannabis abuse, uncomplicated; Z87.891 Personal history of nicotine dependence; Z87.898 Personal history of other specified conditions; Z88.5 Allergy status to narcotic agent; Z79.4 Long term (current) use of insulin; Z82.49 Family history of ischemic heart disease and other diseases of the circulatory system
CPT/HCPCS: 36415; 71045; 71275; 80053; 82150; 82550; 82553; 83690; 83735; 83874; 83880; 84484; 85025; 85610; 85730; 93041; 96374; 96375

== ENCOUNTER 2019-04-25 16:39 | Inpatient (IN) | payer MEDICARE, MEDICAID ==
[~2019-04-25] VITALS: Ht 175.3 cm; Wt 108.8 kg
--- OUTSIDE RECORDS SUMMARY | 2019-04-25 16:47 | XMS REPORT ---
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 [id number] [place] [address] 10 Aug, 2012 [facility] [address] [id number] [place] [address] 30 Jul, 2012 [facility] [address] [id number] [place] [address] Jul, [facility] [place] [facility] [address] [id number] [place] [address] Jul, [facility] [place] [facility] [address] [id number] [place] [address] Jul, [facility] [place] [facility] [address] [id number] [place] [address] Jul, [facility] [place] [facility] [address] [id number] [place] [address] Jul, [facility] [place] [facility] [address] [id number] [place] [address] Jul, [facility] [place] [facility] [address] [id number] [place] [address] Jul, [facility] [place] [facility] [address] [id number] [place] [address] Jul, [facility] [place] [facility] [address] [id number], [place] [address] Jul, [facility] [place] [facility] [address] [id number] [place] [address] Jun, [facility] [place] [facility] [address] [id number], [place] [address] Jun, [facility] [place] [facility] [address] [id number], [place] [address] Jun, [facility] [place] [facility] [address] [id number], [place] [address] Jun, [facility] [place] [facility] [address] [id number], [place] [address] Apr, [facility] [place] [facility] [address] [id number], [place] [address] Mar, [facility] [place] [facility] [address] [id number], [place] [address] Mar, [facility] [place] [facility] [address] [id number], [place] [address] Mar, [facility] [address] [id number] [place] [address] Mar, [facility] [place] [facility] [address] [id number] [place] [address] Mar, [facility] [place] [facility] [address] [id number] [place] [address] Feb, [facility] [place] [facility] [address] [id number] [place] [address] Feb, [facility] [place] [facility] [address] [id number] [place] [address] January, [facility] [place] [facility] [address] [id number] [place] [address] January, [facility] [address] [id number] [place] [address] Nov, [facility] [place] [facility] [address] [id number] [place] [address] Nov, [facility] [place] [facility] [address] [id number] [place] [address] Nov, [facility] [place] [facility] [address] [facility] [id number] [place] [address] Nov, [facility] [address] [id number] [place] [address] Nov, [facility] [place] [facility] [address] [id number] [place] [address] Oct, [facility] [place] [facility] [address] [id number] [place] [address] Jul, [facility] [place] [facility] [address] [id number] [place] [address] Jul, [facility] [place] [facility] [address] [facility] [id number] [place] [address] Jul, [facility] [place] [facility] [address] [facility] [id number], [place] [address] Jun, [facility] [address] [facility] [id number], [place] [address] Jun, [facility] [address] [facility] [id number], [place] [address] Dec, [facility] [address] [facility] [id number], [place] [address] Aug, [facility] [address] [facility] [id number], [place] [address] Aug, [facility] [id number], [place] [address] Jul, [facility] [id number], [place] [address] Jul, [facility] [id number], [place] [address] Jul, [facility] [id number], [place] [address] Jun, [facility] [id number], [place] [address] Jun, [facility] [id number], [place] [address] Jun, [facility] [id number], [place] [address] May, [facility] [address] [id number] [address] Feb, [facility] [address] [id number], [place] [address] January, IMMUNIZATIONS No Known Immunizations SOCIAL HISTORY Never Assessed REASON FOR VISIT PLAN OF CARE VITAL SIGNS MEDICATIONS Unknown Medications RESULTS No Results PROCEDURES No Known procedures INSTRUCTIONS MEDICATIONS ADMINISTERED No Known Medications MEDICAL (GENERAL) HISTORY Type Description Date Medical History type II diabetes Medical History hypertension Medical History hyperlipidemia Medical History gastroesophageal reflux disease (GERD) Medical History Arthritis Medical History insomnia Medical History headache Medical History Insomnia, unspecified Medical History Allergic rhinitis, cause unspecified Medical History Unspecified episodic mood disorder Medical History Carpal tunnel syndrome Medical History aneurysm Surgical History liver bx unknown hx Surgical History umbilical hernia Surgical History cornia repair 08/2017 Hospitalization History surgery Hospitalization History altered mental status, abd pain, cirrhosis, htn-[facility] 07/07/17 Hospitalization History [facility] 03/2019
--- OUTSIDE RECORDS SUMMARY | 2019-04-25 16:48 | XMS REPORT ---
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 [id number] [place] [address] 18 Aug, 2012 [facility] [place] [facility] [address] [id number] [place] [address] 18 Aug, 2012 [facility] [place] [facility] [address] [id number] [place] [address] 14 Aug, 2012 [facility] [place] [facility] [address] [id number] [place] [address] 14 Aug, 2012 [facility] [place] [facility] [address] [id number] [place] [address] 10 Aug, 2012 [facility] [place] [facility] [address] [id number] [place] [address] Aug, [facility] [place] [facility] [address] [id number] [place] [address] 30 Jul, 2012 [facility] [place] [facility] [address] [id number] [place] [address] Jul, [facility] [place] [facility] [address] [id number] [place] [address] Jul, [facility] [place] [facility] [address] [id number] [place] [address] Jul, [facility] [place] [facility] [address] [id number] [place] [address] Jul, [facility] [place] [facility] [address] [id number] [place] [address] Jul, [facility] [place] [facility] [address] [id number] [place] [address] Jul, [facility] [place] [facility] [address] [id number] [place] [address] Jul, [facility] [place] [facility] [address] [facility] [id number] [place] [address] Jul, [facility] [place] [facility] [address] [id number] [place] [address] Jul, [facility] [place] [facility] [address] [id number] [place] [address] Jun, [facility] [place] [facility] [address] [id number], [place] [address] Jun, [facility] [place] [facility] [address] [id number], [place] [address] Jun, [facility] [place] [facility] [address] [id number], [place] [address] Jun, [facility] [place] [facility] [address] [id number] [place] [address] Apr, [facility] [place] [facility] [address] [id number], [place] [address] Mar, [facility] [place] [facility] [address] [id number], [place] [address] Mar, [facility] [place] [facility] [address] [id number] [place] [address] Mar, [facility] [place] [facility] [address] [id number] [place] [address] Mar, [facility] [place] [facility] [address] [id number] [place] [address] Mar, [facility] [place] [facility] [address] [id number] [place] [address] Feb, [facility] [place] [facility] [address] [id number] [place] [address] Feb, [facility] [place] [facility] [address] [id number] [place] [address] January, [facility] [place] [facility] [address] [id number] [place] [address] January, [facility] [place] [facility] [address] [id number] [place] [address] Nov, [facility] [place] [facility] [address] [id number] [place] [address] Nov, [facility] [place] [facility] [address] [id number] [place] [address] Nov, [facility] [place] [facility] [address] [id number] [place] [address] Nov, [facility] [place] [facility] [address] [id number] [place] [address] Nov, [facility] [place] [facility] [address] [id number] [place] [address] Oct, [facility] [place] [facility] [address] [id number] [place] [address] Jul, [facility] [place] [facility] [address] [id number] [place] [address] Jul, [facility] [place] [facility] [address] [id number] [place] [address] Jul, [facility] [address] [facility] [id number], [place] [address] Jun, [facility] [address] [facility] [id number], [place] [address] Jun, [facility] [address] [facility] [id number], [place] [address] Dec, [facility] [address] [facility] [id number], [place] [address] Aug, [facility] [address] [facility] [id number], [place] [address] Aug, [facility] [address] [facility] [id number], [place] [address] Jul, [facility] [id number], [place] [address] Jul, [facility] [id number], [place] [address] Jul, [facility] [id number], [place] [address] Jun, [facility] [id number], [place] [address] Jun, [facility] [id number], [place] [address] Jun, [facility] [id number], [place] [address] May, [facility] [address] [id number], [place] [address] Feb, [facility] [id number], [place] [address] January, IMMUNIZATIONS No Known Immunizations SOCIAL HISTORY Never Assessed REASON FOR VISIT Refill request PLAN OF CARE VITAL SIGNS MEDICATIONS Unknown [...] abd pain, cirrhosis, [id number] 07/07/17 Hospitalization History [facility] 03/2019
--- OUTSIDE RECORDS SUMMARY | 2019-04-25 16:49 | XMS REPORT ---
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 [id number] [place] [address] Aug, [facility] [place] [facility] [address] [id number] [place] [address] Aug, [facility] [place] [facility] [address] [id number] [place] [address] Aug, [facility] [place] [facility] [address] [id number] [place] [address] Aug, [facility] [place] [facility] [address] [id number] [place] [address] 18 Aug, 2012 [facility] [place] [facility] [address] [id number] [place] [address] 18 Aug, 2012 [facility] [place] [facility] [address] [id number] [place] [address] Aug, [facility] [place] [facility] [address] [id number] [place] [address] Aug, [facility] [place] [facility] [address] [id number] [place] [address] Aug, [facility] [place] [facility] [address] [id number] [place] [address] 10 Aug, 2012 [facility] [place] [facility] [address] [id number] [place] [address] 30 Jul, 2012 [facility] [place] [facility] [address] [id number] [place] [address] 30 Jul, 2012 [facility] [place] [facility] [address] [id number] [place] [address] Jul, [facility] [place] [facility] [address] [id number] [place] [address] Jul, [facility] [place] [facility] [address] [id number] [place] [address] Jul, [facility] [place] [facility] [address] [id number] [place] [address] Jul, [facility] [place] [facility] [address] [id number] [place] [address] Jul, [facility] [place] [facility] [address] [id number] [place] [address] Jul, [facility] [place] [facility] [address] [id number] [place] [address] Jul, [facility] [place] [facility] [address] [facility] [id number] [place] [address] Jul, [facility] [place] [facility] [address] [id number] [place] [address] Jun, [facility] [place] [facility] [address] [id number] [place] [address] Jun, [facility] [place] [facility] [address] [id number] [place] [address] Jun, [facility] [place] [facility] [address] [id number] [place] [address] Jun, [facility] [place] [facility] [address] [id number], [place] [address] Apr, [facility] [place] [facility] [address] [id number] [place] [address] Mar, [facility] [place] [facility] [address] [id number], [place] [address] Mar, [facility] [place] [facility] [address] [id number], [place] [address] Mar, [facility] [place] [facility] [address] [id number], [place] [address] Mar, [facility] [place] [facility] [address] [id number], [place] [address] Mar, [facility] [place] [facility] [address] [facility] [id number], [place] [address] Feb, [facility] [place] [facility] [address] [id number], [place] [address] Feb, [facility] [place] [facility] [address] [id number] [place] [address] January, [facility] [address] [id number] [place] [address] January, [facility] [place] [facility] [address] [id number] [place] [address] Nov, [facility] [address] [id number] [place] [address] Nov, [facility] [place] [facility] [address] [id number] [place] [address] Nov, [facility] [address] [id number] [place] [address] Nov, [facility] [place] [facility] [address] [id number] [place] [address] Nov, [facility] [address] [id number] [place] [address] Oct, [facility] [address] [id number] [place] [address] Jul, [facility] [place] [facility] [address] [id number] [place] [address] Jul, [facility] [address] [id number] [place] [address] Jul, [facility] [place] [facility] [address] [id number] [place] [address] Jun, [facility] [place] [facility] [address] [id number] [place] [address] Jun, [facility] [place] [facility] [address] [id number] [place] [address] Dec, [facility] [place] [facility] [address] [id number] [place] [address] Aug, [facility] [place] [facility] [address] [id number] [place] [address] Aug, [facility] [place] [address] [id number] [address] Jul, [facility] [place] [address], [place] [address] Jul, [facility] [place] [address], [place] [address] Jul, [facility] [place] [address], [place] [address] Jun, [facility] [place] [address], [place] [address] Jun, [facility] [place] [address], [place] [address] Jun, [facility] [place] [address], [place] [address] May, [facility] [place] [address], [place] [address] Feb, [facility] [place] [address] [id number], [place] [address] January, IMMUNIZATIONS No Known Immunizations SOCIAL HISTORY [...] mood disorder Medical History Carpal tunnel syndrome Surgical History liver bx unknown hx Surgical History umbilical hernia Surgical History cornia repair 08/2017 Hospitalization History surgery Hospitalization History altered mental status, abd pain, cirrhosis, htn-[facility] 07/07/17
--- OUTSIDE RECORDS SUMMARY | 2019-04-25 16:50 | XMS REPORT ---
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 [id number] [place] [address] Jul, [facility] [place] [facility] [address] [facility] [id number] [place] [address] Jul, [facility] [place] [facility] [address] [id number] [place] [address] Jun, [facility] [place] [facility] [address] [id number] [place] [address] Jun, [facility] [place] [facility] [address] [id number] [place] [address] Jun, [facility] [place] [facility] [address] [id number] [place] [address] Jun, [facility] [place] [facility] [address] [id number], [place] [address] Apr, [facility] [place] [facility] [address] [id number] [place] [address] Mar, [facility] [place] [facility] [address] [id number], [place] [address] Mar, [facility] [place] [facility] [address] [id number], [place] [address] Mar, [facility] [place] [facility] [address] [id number], [place] [address] Mar, [facility] [place] [facility] [address] [id number], [place] [address] Mar, [facility] [place] [facility] [address] [facility] [id number], [place] [address] Feb, [facility] [place] [facility] [address] [id number], [place] [address] Feb, [facility] [place] [facility] [address] [id number] [place] [address] January, [facility] [address] [id number] [place] [address] January, [facility] [place] [facility] [address] [id number] [place] [address] Nov, [facility] [address] [id number] [place] [address] Nov, [facility] [place] [facility] [address] [id number] [place] [address] Nov, [facility] [address] [id number] [place] [address] Nov, [facility] [place] [facility] [address] [id number] [place] [address] Nov, [facility] [address] [id number] [place] [address] Oct, [facility] [address] [id number] [place] [address] Jul, [facility] [place] [facility] [address] [id number] [place] [address] Jul, [facility] [address] [id number] [place] [address] Jul, [facility] [place] [facility] [address] [id number] [place] [address] Jun, [facility] [place] [facility] [address] [id number] [place] [address] Jun, [facility] [place] [facility] [address] [id number] [place] [address] Dec, [facility] [place] [facility] [address] [id number] [place] [address] Aug, [facility] [place] [facility] [address] [id number] [place] [address] Aug, [facility] [address] [id number] [address] Jul, [facility] [address] [id number], [place] [address] Jul, [facility] [address] [id number] [address] Jul, [facility] [id number], [place] [address] Jun, [facility] [id number], [place] [address] Jun, [facility] [id number] [address] Jun, [facility] [id number] [address] May, [facility] [address] [id number] [address] Feb, [facility] [address] [id number] [address] January, IMMUNIZATIONS No Known Immunizations SOCIAL HISTORY Never Assessed REASON FOR VISIT PLAN OF CARE VITAL SIGNS MEDICATIONS Unknown Medications RESULTS No Results PROCEDURES Procedure Date Ordered Result Body Site BASIC METABOLIC PANEL Nov 07, 2014 VENIPUNCT, ROUTINE* Nov 07, 2014 INSTRUCTIONS MEDICATIONS ADMINISTERED No Known Medications MEDICAL [...]
--- OUTSIDE RECORDS SUMMARY | 2019-04-25 16:50 | XMS REPORT ---
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 [address] [id number] [place] [address] Jul, [facility] [place] [facility] [address] [id number] [place] [address] Jul, [facility] [place] [facility] [address] [id number] [place] [address] Jul, [facility] [place] [facility] [address] [id number] [place] [address] Jul, [facility] [place] [facility] [address] [id number] [place] [address] Jul, [facility] [place] [facility] [address] [id number] [place] [address] Jul, [facility] [place] [facility] [address] [facility] [id number] [place] [address] Jul, [facility] [place] [facility] [address] [id number] [place] [address] Jun, [facility] [place] [facility] [address] [id number] [place] [address] Jun, [facility] [place] [facility] [address] [id number] [place] [address] Jun, [facility] [place] [facility] [address] [id number] [place] [address] Jun, [facility] [place] [facility] [address] [id number], [place] [address] Apr, [facility] [place] [facility] [address] [id number] [place] [address] Mar, [facility] [place] [facility] [address] [id number], [place] [address] Mar, [facility] [place] [facility] [address] [id number], [place] [address] Mar, [facility] [place] [facility] [address] [id number], [place] [address] Mar, [facility] [place] [facility] [address] [id number], [place] [address] Mar, [facility] [place] [facility] [address] [facility] [id number], [place] [address] Feb, [facility] [place] [facility] [address] [id number], [place] [address] Feb, [facility] [place] [facility] [address] [id number] [place] [address] January, [facility] [address] [id number] [place] [address] January, [facility] [place] [facility] [address] [id number] [place] [address] Nov, [facility] [address] [id number] [place] [address] Nov, [facility] [place] [facility] [address] [id number] [place] [address] Nov, [facility] [address] [id number] [place] [address] Nov, [facility] [place] [facility] [address] [id number] [place] [address] Nov, [facility] [address] [id number] [place] [address] Oct, [facility] [address] [id number] [place] [address] Jul, [facility] [place] [facility] [address] [id number] [place] [address] Jul, [facility] [address] [id number] [place] [address] Jul, [facility] [place] [facility] [address] [id number] [place] [address] Jun, [facility] [place] [facility] [address] [id number] [place] [address] Jun, [facility] [place] [facility] [address] [id number] [place] [address] Dec, [facility] [place] [facility] [address] [id number] [place] [address] Aug, [facility] [place] [facility] [address] [id number] [place] [address] Aug, [facility] [address] [id number], [place] [address] Jul, [facility] [address] [id number], [place] [address] Jul, [facility] [address] [id number], [place] [address] Jul, [facility] [address] [id number], [place] [address] Jun, [facility] [address] [id number], [place] [address] Jun, [facility] [id number], [place] [address] Jun, [facility] [id number], [place] [address] May, [facility] [address] [id number], [place] [address] Feb, [facility] [address] [id number], [place] [address] January, IMMUNIZATIONS No Known Immunizations SOCIAL HISTORY Never Assessed REASON FOR VISIT PLAN OF CARE VITAL SIGNS Height 69 in 2014-11-04 Weight 247.25 lbs 2014-11-04 Temperature 97 degrees Fahrenheit 2014-11-04 Heart Rate 72 bpm 2014-11-04 Respiratory Rate 20 2014-11-04 Blood pressure systolic 125 mmHg 2014-11-04 Blood pressure diastolic 80 mmHg 2014-11-04 MEDICATIONS Unknown Medications RESULTS No Results PROCEDURES Procedure Date Ordered Result Body Site COMPLETE CBC W/AUTO DIFF WBC Nov 04, 2014 ASSAY THYROID STIM HORMONE Nov 04, 2014 GLYCATED HEMOGLOBIN TEST Nov 04, 2014 LIPID PANEL Nov 04, 2014 COMPREHEN METABOLIC PANEL Nov 04, 2014 VENIPUNCT, ROUTINE* Nov 04, 2014 INSTRUCTIONS MEDICATIONS ADMINISTERED No Known Medications [...]
--- OUTSIDE RECORDS SUMMARY | 2019-04-25 16:51 | XMS REPORT ---
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 [id number] [place] [address] Jul, [facility] [place] [facility] [address] [id number] [place] [address] Jul, [facility] [place] [facility] [address] [id number] [place] [address] Jul, [facility] [place] [facility] [address] [id number] [place] [address] Jul, [facility] [place] [facility] [address] [id number] [place] [address] Jul, [facility] [place] [facility] [address] [id number] [place] [address] Jul, [facility] [place] [facility] [address] [id number] [place] [address] Jul, [facility] [place] [facility] [address] [facility] [id number] [place] [address] Jul, [facility] [place] [facility] [address] [id number] [place] [address] Jun, [facility] [place] [facility] [address] [id number] [place] [address] Jun, [facility] [place] [facility] [address] [id number] [place] [address] Jun, [facility] [place] [facility] [address] [id number] [place] [address] Jun, [facility] [place] [facility] [address] [id number], [place] [address] Apr, [facility] [place] [facility] [address] [id number] [place] [address] Mar, [facility] [place] [facility] [address] [id number], [place] [address] Mar, [facility] [place] [facility] [address] [id number], [place] [address] Mar, [facility] [place] [facility] [address] [id number], [place] [address] Mar, [facility] [place] [facility] [address] [id number], [place] [address] Mar, [facility] [place] [facility] [address] [facility] [id number], [place] [address] Feb, [facility] [place] [facility] [address] [id number], [place] [address] Feb, [facility] [place] [facility] [address] [id number] [place] [address] January, [facility] [address] [id number] [place] [address] January, [facility] [place] [facility] [address] [id number] [place] [address] Nov, [facility] [address] [id number] [place] [address] Nov, [facility] [place] [facility] [address] [id number] [place] [address] Nov, [facility] [address] [id number] [place] [address] Nov, [facility] [place] [facility] [address] [id number] [place] [address] Nov, [facility] [address] [id number] [place] [address] Oct, [facility] [address] [id number] [place] [address] Jul, [facility] [place] [facility] [address] [id number] [place] [address] Jul, [facility] [address] [id number] [place] [address] Jul, [facility] [place] [facility] [address] [id number] [place] [address] Jun, [facility] [place] [facility] [address] [id number] [place] [address] Jun, [facility] [place] [facility] [address] [id number] [place] [address] Dec, [facility] [place] [facility] [address] [id number] [place] [address] Aug, [facility] [place] [facility] [address] [id number] [place] [address] Aug, [facility] [address] [id number], [place] [address] Jul, [facility] [id number], [place] [address] Jul, [facility] [id number], [place] [address] Jul, [facility] [id number], [place] [address] Jun, [facility] [id number], [place] [address] Jun, [facility] [id number], [place] [address] Jun, [facility] [id number], [place] [address] May, [facility] [id number], [place] [address] Feb, [facility] [address] [id number], [place] [address] January, IMMUNIZATIONS No Known Immunizations SOCIAL HISTORY [...]
--- OUTSIDE RECORDS SUMMARY | 2019-04-25 16:52 | XMS REPORT ---
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 [place] [address] Jul, [facility] [place] [facility] [address] [id number] [place] [address] Jul, [facility] [place] [facility] [address] [id number] [place] [address] Jul, [facility] [place] [facility] [address] [id number] [place] [address] Jul, [facility] [place] [facility] [address] [id number] [place] [address] Jul, [facility] [place] [facility] [address] [id number] [place] [address] Jul, [facility] [place] [facility] [address] [facility] [id number] [place] [address] Jul, [facility] [place] [facility] [address] [id number] [place] [address] Jun, [facility] [place] [facility] [address] [id number] [place] [address] Jun, [facility] [place] [facility] [address] [id number] [place] [address] Jun, [facility] [place] [facility] [address] [id number] [place] [address] Jun, [facility] [place] [facility] [address] [id number], [place] [address] Apr, [facility] [place] [facility] [address] [id number] [place] [address] Mar, [facility] [place] [facility] [address] [id number], [place] [address] Mar, [facility] [place] [facility] [address] [id number], [place] [address] Mar, [facility] [place] [facility] [address] [id number], [place] [address] Mar, [facility] [place] [facility] [address] [id number], [place] [address] Mar, [facility] [place] [facility] [address] [facility] [id number], [place] [address] Feb, [facility] [place] [facility] [address] [id number], [place] [address] Feb, [facility] [place] [facility] [address] [id number] [place] [address] January, [facility] [address] [id number] [place] [address] January, [facility] [place] [facility] [address] [id number] [place] [address] Nov, [facility] [address] [id number] [place] [address] Nov, [facility] [place] [facility] [address] [id number] [place] [address] Nov, [facility] [address] [id number] [place] [address] Nov, [facility] [place] [facility] [address] [id number] [place] [address] Nov, [facility] [address] [id number] [place] [address] Oct, [facility] [address] [id number] [place] [address] Jul, [facility] [place] [facility] [address] [id number] [place] [address] Jul, [facility] [address] [id number] [place] [address] Jul, [facility] [place] [facility] [address] [id number] [place] [address] Jun, [facility] [place] [facility] [address] [id number] [place] [address] Jun, [facility] [place] [facility] [address] [id number] [place] [address] Dec, [facility] [place] [facility] [address] [id number] [place] [address] Aug, [facility] [place] [facility] [address] [id number] [place] [address] Aug, [facility] [address] [id number], [place] [address] Jul, [facility] [id number], [place] [address] Jul, [facility] [id number], [place] [address] Jul, [facility] [id number], [place] [address] Jun, [facility] [id number], [place] [address] Jun, [facility] [id number], [place] [address] Jun, [facility] [id number], [place] [address] May, [facility] [id number], [place] [address] Feb, [facility] [address] [id number], [place] [address] January, IMMUNIZATIONS No Known Immunizations SOCIAL HISTORY [...]
--- OUTSIDE RECORDS SUMMARY | 2019-04-25 16:52 | XMS REPORT ---
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 [address] Jul, [facility] [place] [facility] [address] [id number] [place] [address] Jul, [facility] [place] [facility] [address] [facility] [id number] [place] [address] Jul, [facility] [place] [facility] [address] [id number] [place] [address] 16 Jul, 2012 [facility] [place] [facility] [address] [id number] [place] [address] 16 Jul, 2012 [facility] [place] [facility] [address] [id number] [place] [address] 19 Jun, 2012 [facility] [place] [facility] [address] [facility] [id number] [place] [address] 19 Jun, 2012 [facility] [place] [facility] [address] [id number] [place] [address] Jun, [facility] [place] [facility] [address] [id number] [place] [address] Jun, [facility] [place] [facility] [address] [id number] [place] [address] Apr, [facility] [place] [facility] [address] [id number] [place] [address] Mar, [facility] [place] [facility] [address] [id number] [place] [address] Mar, [facility] [address] [id number] [place] [address] Mar, [facility] [place] [facility] [address] [id number] [place] [address] Mar, [facility] [address] [id number] [place] [address] Mar, [facility] [address] [id number] [place] [address] Feb, [facility] [place] [facility] [address] [id number] [place] [address] Feb, [facility] [place] [facility] [address] [id number] [place] [address] January, [facility] [place] [facility] [address] [id number] [place] [address] January, [facility] [place] [facility] [address] [id number] [place] [address] Nov, [facility] [place] [facility] [address] [id number] [place] [address] Nov, [facility] [place] [facility] [address] [id number] [place] [address] Nov, [facility] [place] [facility] [address] [id number] [place] [address] Nov, [facility] [place] [facility] [address] [id number], [place] [address] Nov, [facility] [place] [facility] [address] [id number] [place] [address] Oct, [facility] [place] [facility] [address] [id number], [place] [address] Jul, [facility] [place] [facility] [address] [id number] [place] [address] Jul, [facility] [place] [facility] [address] [id number] [place] [address] Jul, [facility] [place] [facility] [address] [id number] [place] [address] Jun, [facility] [place] [facility] [address] [id number] [place] [address] Jun, [facility] [place] [facility] [address] [id number], [place] [address] Dec, [facility] [place] [facility] [address] [id number] [place] [address] Aug, [facility] [place] [facility] [address] [id number], [place] [address] Aug, [facility] [place] [facility] [address] [facility] [id number], [place] [address] Jul, [facility] [place] [facility] [address] [id number], [place] [address] Jul, [facility] [place] [facility] [address] [id number], [place] [address] Jul, [facility] [place] [facility] [address] [id number], [place] [address] 25 Jun, 2010 [facility] [place] [facility] [address] [id number], [place] [address] 13 Jun, 2010 [facility] [place] [facility] [address] [facility] [id number], [place] [address] 13 Jun, 2010 [facility] [place] [facility] [address] [facility] [id number] [place] [address] 15 May, 2010 [facility] [address] [facility] [id number] [place] [address] 15 Feb, 2010 [facility] [address] [facility] [id number] [place] [address] January, IMMUNIZATIONS No Known Immunizations SOCIAL HISTORY Never Assessed REASON FOR VISIT EMR-[facility] [place] PLAN OF CARE VITAL SIGNS MEDICATIONS Unknown [...]
--- OUTSIDE RECORDS SUMMARY | 2019-04-25 16:53 | XMS REPORT ---
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 [place] [address] Jun, [facility] [place] [facility] [address] [id number] [place] [address] Apr, [facility] [place] [facility] [address] [id number] [place] [address] Mar, [facility] [place] [facility] [address] [id number] [place] [address] Mar, [facility] [place] [facility] [address] [id number] [place] [address] Mar, [facility] [place] [facility] [address] [id number] [place] [address] Mar, [facility] [place] [facility] [address] [id number] [place] [address] Mar, [facility] [place] [facility] [address] [id number] [place] [address] Feb, [facility] [place] [facility] [address] [id number] [place] [address] Feb, [facility] [place] [facility] [address] [id number] [place] [address] January, [facility] [place] [facility] [address] [id number] [place] [address] January, [facility] [place] [facility] [address] [id number] [place] [address] Nov, [facility] [place] [facility] [address] [id number] [place] [address] Nov, [facility] [place] [facility] [address] [id number] [place] [address] Nov, [facility] [place] [facility] [address] [id number] [place] [address] Nov, [facility] [place] [facility] [address] [id number] [place] [address] Nov, [facility] [place] [facility] [address] [id number] [place] [address] Oct, [facility] [place] [facility] [address] [id number] [place] [address] Jul, [facility] [place] [facility] [address] [id number] [address] Jul, [facility] [place] [facility] [address] [id number] [place] [address] Jul, [facility] [place] [facility] [address] [id number] [place] [address] Jun, [facility] [place] [facility] [address] [id number] [place] [address] Jun, [facility] [place] [facility] [address] [id number] [place] [address] Dec, [facility] [place] [facility] [id number], [place] [address] Aug, [facility] [id number], [place] [address] Aug, [facility] [id number], [place] [address] Jul, [facility] [id number], [place] [address] Jul, [facility] [id number], [place] [address] Jul, [facility] [id number] [place] [address] Jun, [facility] [id number], [place] [address] Jun, [facility] [id number] [place] [address] Jun, [facility] [id number], [place] [address] May, [facility] [id number], [place] [address] Feb, [facility] [id number], [place] [address] January, IMMUNIZATIONS No Known Immunizations SOCIAL HISTORY Never Assessed REASON FOR [place] [facility] [place] VITAL SIGNS MEDICATIONS Unknown [...]
--- NOTE | 2019-04-25 16:54 | NUR ---
RIGHT FOOT WOUND CX.
--- OUTSIDE RECORDS SUMMARY | 2019-04-25 16:54 | XMS REPORT ---
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 [address] [id number] [place] [address] Mar, [facility] [place] [facility] [address] [id number] [place] [address] Mar, [facility] [place] [facility] [address] [id number] [place] [address] Mar, [facility] [place] [facility] [address] [id number] [place] [address] Mar, [facility] [place] [facility] [address] [id number] [place] [address] Feb, [facility] [place] [facility] [address] [id number] [place] [address] Feb, [facility] [place] [facility] [address] [id number] [place] [address] January, [facility] [place] [facility] [address] [id number] [place] [address] January, [facility] [place] [facility] [address] [id number] [place] [address] Nov, [facility] [place] [facility] [address] [id number] [place] [address] Nov, [facility] [place] [facility] [address] [id number] [place] [address] Nov, [facility] [place] [facility] [address] [id number] [place] [address] Nov, [facility] [place] [facility] [address] [id number] [place] [address] Nov, [facility] [place] [facility] [address] [id number] [place] [address] Oct, [facility] [place] [facility] [address] [id number] [place] [address] Jul, [facility] [place] [facility] [address] [id number], [place] [address] Jul, [facility] [place] [facility] [address] [id number] [place] [address] Jul, [facility] [place] [facility] [address] [id number] [place] [address] Jun, [facility] [place] [facility] [address] [id number] [place] [address] Jun, [facility] [place] [facility] [address] [id number] [place] [address] Dec, [facility] [place] [facility] [id number], [place] [address] Aug, [facility] [id number], [place] [address] Aug, [facility] [id number], [place] [address] Jul, [facility] [id number], [place] [address] Jul, [facility] [id number], [place] [address] Jul, [facility] [id number] [place] [address] Jun, [facility] [id number], [place] [address] Jun, [facility] [id number] [place] [address] Jun, [facility] [id number], [place] [address] May, [facility] [id number], [place] [address] Feb, [facility] [id number], [place] [address] January, IMMUNIZATIONS No Known Immunizations SOCIAL HISTORY Never Assessed REASON FOR VISIT [facility] PLAN OF CARE VITAL SIGNS MEDICATIONS Unknown [...]
--- OUTSIDE RECORDS SUMMARY | 2019-04-25 16:54 | XMS REPORT ---
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 Jul, [facility] [place] [facility] [address] [id number] [place] [address] Jul, [facility] [place] [facility] [address] [id number] [place] [address] 20 Jul, 2012 [facility] [place] [facility] [address] [id number] [place] [address] Jul, [facility] [place] [facility] [address] [id number] [place] [address] Jul, [facility] [place] [facility] [address] [id number] [place] [address] Jul, [facility] [place] [facility] [address] [id number] [place] [address] Jul, [facility] [place] [facility] [address] [id number] [place] [address] Jul, [facility] [place] [facility] [address] [id number] [place] [address] Jun, [facility] [place] [facility] [address] [id number] [place] [address] Jun, [facility] [place] [facility] [address] [id number] [place] [address] Jun, [facility] [place] [facility] [address] [id number] [place] [address] Jun, [facility] [place] [facility] [address] [id number] [place] [address] Apr, [facility] [place] [facility] [address] [id number] [place] [address] Mar, [facility] [place] [facility] [address] [id number] [place] [address] Mar, [facility] [place] [facility] [address] [id number] [place] [address] Mar, [facility] [place] [facility] [address] [id number] [place] [address] Mar, [facility] [place] [facility] [address] [id number] [place] [address] Mar, [facility] [place] [facility] [address] [id number] [place] [address] Feb, [facility] [place] [facility] [address] [id number] [place] [address] Feb, [facility] [place] [facility] [address] [id number] [place] [address] January, [facility] [place] [facility] [address] [id number] [place] [address] January, [facility] [place] [facility] [address] [id number] [place] [address] Nov, [facility] [place] [facility] [address] [id number] [place] [address] Nov, [facility] [place] [facility] [address] [id number] [place] [address] Nov, [facility] [place] [facility] [address] [id number] [place] [address] Nov, [facility] [place] [facility] [address] [id number] [place] [address] Nov, [facility] [place] [facility] [address] [id number] [place] [address] Oct, [facility] [place] [facility] [address] [id number] [place] [address] Jul, [facility] [place] [facility] [address] [id number], [place] [address] Jul, [facility] [place] [facility] [address] [id number] [place] [address] Jul, [facility] [place] [facility] [address] [id number] [place] [address] Jun, [facility] [place] [facility] [address] [id number] [place] [address] Jun, [facility] [place] [facility] [address] [id number] [place] [address] Dec, [facility] [place] [facility] [id number], [place] [address] Aug, [facility] [place] [id number], [place] [address] Aug, [facility] [place] [id number], [place] [address] Jul, [facility] [place] [id number], [place] [address] Jul, [facility] [place] [id number], [place] [address] Jul, [facility] [place] [id number] [place] [address] Jun, [facility] [place] [id number], [place] [address] Jun, [facility] [place] [id number] [place] [address] Jun, [facility] [place] [id number], [place] [address] May, [facility] [place] [id number], [place] [address] Feb, [facility] [place] [id number], [place] [address] January, IMMUNIZATIONS No Known Immunizations SOCIAL HISTORY Never Assessed REASON FOR VISIT [facility] [place] VITAL SIGNS MEDICATIONS Unknown [...]
--- NOTE | 2019-04-25 16:55 | NUR ---
LEFT FOOT WOUND CX.
--- OUTSIDE RECORDS SUMMARY | 2019-04-25 16:55 | XMS REPORT ---
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 [address] [id number], [place] [address] Mar, [facility] [place] [facility] [address] [id number] [place] [address] Mar, [facility] [place] [facility] [address] [facility] [id number], [place] [address] Mar, [facility] [place] [facility] [address] [id number], [place] [address] Mar, [facility] [place] [facility] [address] [id number] [place] [address] Mar, [facility] [address] [id number] [place] [address] Feb, [facility] [place] [facility] [address] [id number] [place] [address] Feb, [facility] [place] [facility] [address] [id number] [place] [address] January, [facility] [place] [facility] [address] [id number] [place] [address] January, [facility] [place] [facility] [address] [id number] [place] [address] Nov, [facility] [place] [facility] [address] [id number] [place] [address] Nov, [facility] [place] [facility] [address] [id number] [place] [address] Nov, [facility] [place] [facility] [address] [id number] [place] [address] Nov, [facility] [place] [facility] [address] [id number] [place] [address] Nov, [facility] [address] [facility] [id number] [place] [address] Oct, [facility] [place] [facility] [address] [id number] [place] [address] Jul, [facility] [place] [facility] [address] [id number] [place] [address] Jul, [facility] [place] [facility] [address] [id number] [place] [address] Jul, [facility] [place] [facility] [address] [id number] [place] [address] Jun, [facility] [place] [facility] [address] [id number] [place] [address] Jun, [facility] [address] [id number], [place] [address] Dec, [facility] [id number], [place] [address] Aug, [facility] [id number], [place] [address] Aug, [facility] [id number] [place] [address] Jul, [facility] [id number], [place] [address] Jul, [facility] [id number] [place] [address] Jul, [facility] [id number], [place] [address] Jun, [facility] [id number] [place] [address] Jun, [facility] [id number], [place] [address] Jun, [facility] [address] [id number], [place] [address] May, [facility] [id number], [place] [address] Feb, [facility] [id number] [address] January, IMMUNIZATIONS No Known Immunizations SOCIAL HISTORY Never Assessed REASON FOR VISIT EMR-[facility] [place] PLAN OF CARE [...]
--- OUTSIDE RECORDS SUMMARY | 2019-04-25 16:56 | XMS REPORT ---
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 Oct, [facility] [place] [facility] [address] [id number] [place] [address] Jul, [facility] [place] [facility] [address] [id number] [place] [address] Jul, [facility] [place] [facility] [address] [id number] [place] [address] Jul, [facility] [place] [facility] [address] [id number] [place] [address] Jun, [facility] [address] [facility] [id number], [place] [address] Jun, [facility] [address] [facility] [id number], [place] [address] Dec, [facility] [address] [facility] [id number], [place] [address] Aug, [facility] [address] [facility] [id number], [place] [address] Aug, [facility] [address] [facility] [id number], [place] [address] Jul, [facility] [address] [facility] [id number] [place] [address] Jul, [facility] [id number] [place] [address] Jul, [facility] [id number], [place] [address] Jun, [facility] [id number], [place] [address] Jun, [facility] [id number], [place] [address] Jun, [facility] [id number], [place] [address] May, [facility] [id number], [place] [address] Feb, [facility] [id number], [place] [address] January, IMMUNIZATIONS No Known Immunizations SOCIAL HISTORY Never Assessed REASON FOR VISIT Refill request PLAN OF CARE VITAL SIGNS MEDICATIONS Medication Instructions Dosage Frequency Start Date End Date Duration Status Levemir FlexTouch 100 UNIT/ML Subcutaneous 2 times a day 30 units 12h 25 days Active RESULTS No Results PROCEDURES No Known procedures [...]
--- OUTSIDE RECORDS SUMMARY | 2019-04-25 16:56 | XMS REPORT ---
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 [facility] [place] [facility] [address] [id number] [place] [address] Mar, [facility] [place] [facility] [address] [id number] [place] [address] Mar, [facility] [place] [facility] [address] [id number] [place] [address] Mar, [facility] [place] [facility] [address] [id number] [place] [address] Mar, [facility] [place] [facility] [address] [id number] [place] [address] Mar, [facility] [place] [facility] [address] [id number] [place] [address] Feb, [facility] [place] [facility] [address] [id number] [place] [address] Feb, [facility] [place] [facility] [address] [id number] [place] [address] January, [facility] [place] [facility] [address] [id number] [place] [address] January, [facility] [place] [facility] [address] [id number] [place] [address] Nov, [facility] [place] [facility] [address] [id number] [place] [address] Nov, [facility] [place] [facility] [address] [id number] [place] [address] Nov, [facility] [place] [facility] [address] [id number] [place] [address] Nov, [facility] [place] [facility] [address] [id number] [place] [address] Nov, [facility] [place] [facility] [address] [id number] [place] [address] Oct, [facility] [place] [facility] [address] [id number], [place] [address] Jul, [facility] [place] [facility] [address] [id number] [place] [address] Jul, [facility] [place] [facility] [address] [id number] [place] [address] Jul, [facility] [place] [facility] [address] [id number] [place] [address] Jun, [facility] [place] [facility] [address] [id number] [place] [address] Jun, [facility] [place] [facility] [id number], [place] [address] Dec, [facility] [id number], [place] [address] Aug, [facility] [id number], [place] [address] Aug, [facility] [id number], [place] [address] Jul, [facility] [id number], [place] [address] Jul, [facility] [id number], [place] [address] Jul, [facility] [address], [place] [address] Jun, [facility] [address], [place] [address] Jun, [facility] [address], [place] [address] Jun, [facility] [address], [place] [address] May, [facility] [address], [place] [address] Feb, [facility] [address], [place] [address] January, IMMUNIZATIONS No Known Immunizations SOCIAL HISTORY Never Assessed REASON FOR VISIT EMR-[facility] PLAN OF CARE VITAL SIGNS MEDICATIONS Medication Instructions Dosage Frequency Start Date End Date Duration Status NovoLog Flexpen 100 unit/mL inject 40 Units by Subcutaneous route before meals 3 times per day Oct, Active Levemir Flexpen 100 unit/mL (3 mL) 60 Units by Subcutaneous route 1 time per day at bedtime Oct, Active PredniSONE 20 mg 2 tablet by Oral route 1 time per day for 5 day(s) Dec, Active Amoxicillin 500 mg 2 capsule by Oral route 2 times per day for 10 day(s) Jul, Active Keflex 500 mg take 1 capsule (500 mg) by oral route every 6 hours for 10 days Feb, Active Metronidazole 500 mg 1 tablet by Oral route 2 times per day for 14 days Jul, Active Bactrim DS 800-160 mg 1 tablet by Oral route 2 times per day for 10 day(s) Oct, Active tramadol 50 mg take 1 tablet (50 mg) by oral route every 6 hours as needed PRN pain Jun, Active RESULTS No Results PROCEDURES No Known [...]
--- OUTSIDE RECORDS SUMMARY | 2019-04-25 16:57 | XMS REPORT ---
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 [place] [facility] [address] [id number] [place] [address] Jul, [facility] [place] [facility] [address] [id number] [place] [address] Jul, [facility] [place] [facility] [address] [id number] [place] [address] Jun, [facility] [address] [id number] [address] Jun, [facility] [id number] [address] Dec, [facility] [id number] [address] Aug, [facility] [address] [id number] [address] Aug, [facility] [id number] [address] Jul, [facility] [id number] [place] [address] Jul, [facility] [id number] [address] Jul, [facility] [id number] [address] Jun, [facility] [id number] [address] Jun, [facility] [id number] [address] Jun, [facility] [id number] [address] May, [facility] [address] [id number] [address] Feb, [facility] [address] [id number] [address] January, IMMUNIZATIONS No Known Immunizations SOCIAL HISTORY Never Assessed REASON FOR VISIT CO shruti Chong PLAN OF CARE VITAL SIGNS MEDICATIONS Unknown [...]
--- OUTSIDE RECORDS SUMMARY | 2019-04-25 16:58 | XMS REPORT ---
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 [address] Jul, [facility] [place] [facility] [address] [id number] [place] [address] Jun, [facility] [address] [id number] [address] Jun, [facility] [id number] [address] Dec, [facility] [id number] [address] Aug, [facility] [address] [id number] [address] Aug, [facility] [id number] [address] Jul, [facility] [id number] [place] [address] Jul, [facility] [id number] [address] Jul, [facility] [id number] [address] Jun, [facility] [id number] [address] Jun, [facility] [id number] [address] Jun, [facility] [id number] [address] May, [facility] [address] [id number] [address] Feb, [facility] [address] [id number] [address] January, IMMUNIZATIONS No Known Immunizations SOCIAL HISTORY Never Assessed REASON FOR VISIT Pt request PLAN OF CARE VITAL SIGNS MEDICATIONS [...]
--- OUTSIDE RECORDS SUMMARY | 2019-04-25 16:58 | XMS REPORT ---
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 [id number] [place] [address] Jul, [facility] [place] [facility] [address] [id number] [place] [address] Jun, [facility] [address] [id number] [address] Jun, [facility] [id number] [address] Dec, [facility] [id number] [address] Aug, [facility] [address] [id number] [address] Aug, [facility] [id number] [address] Jul, [facility] [id number] [place] [address] Jul, [facility] [id number] [address] Jul, [facility] [id number] [address] Jun, [facility] [id number] [address] Jun, [facility] [id number] [address] Jun, [facility] [id number] [address] May, [facility] [address] [id number] [address] Feb, [facility] [address] [id number] [address] January, IMMUNIZATIONS No Known Immunizations SOCIAL HISTORY Never Assessed REASON FOR VISIT Enrolled in [facility] PLAN OF CARE VITAL SIGNS MEDICATIONS Unknown [...]
--- OUTSIDE RECORDS SUMMARY | 2019-04-25 16:59 | XMS REPORT ---
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 [id number] [place] [address] Aug, [facility] [place] [facility] [address] [id number] [address] Jul, [facility] [address] [id number] [address] Jul, [facility] [id number] [address] Jul, [facility] [address] [id number] [address] Jun, [facility] [id number] [address] Jun, [facility] [id number] [place] [address] Jun, [facility] [id number] [address] May, [facility] [id number] [address] Feb, [facility] [address] [id number] [address] January, IMMUNIZATIONS No Known Immunizations SOCIAL HISTORY Never Assessed REASON FOR VISIT Lab results PLAN OF CARE VITAL SIGNS MEDICATIONS Medication Instructions Dosage Frequency Start Date End Date Duration Status Blood Pressure Monitor/Arm - as directed monitor daily: notify PCP if 130/80 Jun, 1 dose Active RESULTS No Results PROCEDURES No Known [...]
--- OUTSIDE RECORDS SUMMARY | 2019-04-25 17:00 | XMS REPORT ---
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 [address] Jun, [facility] [place] [facility] [address] [id number] [place] [address] Jun, [facility] [place] [facility] [address] [id number] [place] [address] Jun, [facility] [place] [facility] [address] [id number] [place] [address] May, [facility] [place] [address] [facility] [id number] [place] [address] Feb, [facility] [place] [address] [facility] [id number] [place] [address] January, IMMUNIZATIONS No Known Immunizations SOCIAL HISTORY Never Assessed REASON FOR VISIT Medication refill request PLAN OF CARE VITAL SIGNS MEDICATIONS [...]
--- OUTSIDE RECORDS SUMMARY | 2019-04-25 17:00 | XMS REPORT ---
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 [facility] [address] [id number] [place] [address] Aug, [facility] [place] [facility] [id number] [address] Jul, [facility] [id number] [place] [address] Jul, [facility] [id number] [place] [address] Jul, [facility] [id number] [place] [address] Jun, [facility] [id number] [place] [address] Jun, [facility] [id number] [place] [address] Jun, [facility] [id number] [place] [address] May, [facility] [id number] [place] [address] Feb, [facility] [id number] [place] [address] January, IMMUNIZATIONS No Known Immunizations SOCIAL HISTORY Never Assessed REASON FOR VISIT Refill request PLAN OF CARE VITAL SIGNS MEDICATIONS Medication Instructions Dosage Frequency Start Date End Date Duration Status Albuterol 90 MCG/ACT Inhalation 4 times a day 2 puffs as needed for SOB 6h Jul, Active RESULTS No Results PROCEDURES No Known [...]
[2019-04-25] MEDS ORDERED: NS IV 1000 ML 1,000 ML IV SCH (17:01)
--- OUTSIDE RECORDS SUMMARY | 2019-04-25 17:01 | XMS REPORT ---
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 [id number], [place] [address] 13 Jun, 2010 [facility] [place] [facility] [address] [id number] [place] [address] Jun, [facility] [place] [facility] [address] [id number], [place] [address] 15 May, 2010 [facility] [place] [facility] [address] [id number] [place] [address] 15 Feb, 2010 [facility] [place] [facility] [address] [facility] [id number] [place] [address] January, IMMUNIZATIONS No Known Immunizations SOCIAL HISTORY Never Assessed REASON FOR VISIT Toenail removal left great toe CBrumbackRN PLAN OF CARE Activity Details Future/Pending Procedure NAIL REMOVAL PERMANENT (PARTIAL OR COMPLETE) VITAL SIGNS Height 69 in 2018-04-14 Weight 244.7 lbs 2018-04-14 Temperature 98.4 degrees Fahrenheit 2018-04-14 Heart Rate 76 bpm 2018-04-14 Respiratory Rate 20 2018-04-14 BMI 36.13 kg/m2 2018-04-14 Blood pressure systolic 110 mmHg 2018-04-14 Blood pressure diastolic 62 mmHg 2018-04-14 MEDICATIONS Medication Instructions Dosage Frequency Start Date End Date Duration Status Clindamycin HCl 300 MG Orally every 8 hrs 1 capsule 8h Mar, Mar, 07 days Active Levemir FlexTouch 100 UNIT/ML Subcutaneous 2 times a day 30 units 12h 25 days Active Tramadol HCl 50 mg Orally 2 times a day 1 tablet as needed 12h Oct, Active Lasix 20 mg Orally Once a day 1 tablet 24h 14 Feb, 2018 90 days Active Albuterol 90 MCG/ACT Inhalation 4 times a day 2 puffs as needed for SOB 6h Jul, Active BD Pen Needle Short U/F 31G X 8 MM SQ 5 times a day as directed May, 30 days Active Metoprolol Tartrate 50 mg Orally Twice a day 1 tablet with food 12h 30 Active Test strips test blood sugar 12h Dec, 25 days Active Lancets - to check blood glucose 2 times a day as directed Dec, Active Glucometer test blood sugar 12h Dec, 25 days Active Nebulizer - as directed Sep, lifetime Active Albuterol Sulfate (2.5 MG/3ML) 0.083% Inhalation every 4 hrs 3 ml as needed 4h Sep, 30 days Active Atorvastatin Calcium 20MG TAKE 1 TABLET BY MOUTH DAILY Active Accu-Chek Christina Plus - subcutaneously 3 times a day to check blood sugar 8h January, Active Furosemide 20 MG 90 Active Lactulose 10 GM/15ML Orally twice a day 15 ml 12h Jun, Dec, 90 days Active Test strips Diabetic Test Strips to check blood glucose 2 times a day as directed Dec, Active NovoLog Flexpen 100 UNIT/ML Subcutaneous 3 times a day ac meals 2 units Active Lisinopril 20 MG 30 Active Omeprazole 20 mg TAKE 1 CAPSULE BY MOUTH DAILY 30 Active RESULTS No Results PROCEDURES Procedure Date Ordered Result Body Site REMOVAL OF NAIL BED April 14, 2018 [facility] VISIT ESTABLISHED PATIENT April 14, 2018 INSTRUCTIONS MEDICATIONS ADMINISTERED No Known Medications MEDICAL [...]
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
--- OUTSIDE RECORDS SUMMARY | 2019-04-25 17:02 | XMS REPORT ---
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 Duration Status Lasix 20 mg Orally Once a day 1 tablet 24h Feb, 90 days Active Levemir FlexTouch 100 UNIT/ML Subcutaneous 2 times a day 30 units 12h 25 days Active Glucometer test blood sugar Dec, 25 days Active Nebulizer - as directed Sep, lifetime Active Furosemide 20 MG 90 Active BD Pen Needle Short U/F 31G X 8 MM SQ 5 times a day as directed May, 30 days Active NovoLog Flexpen 100 UNIT/ML Subcutaneous 3 times a day ac meals 2 units Active Lancets - to check blood glucose 2 times a day as directed Dec, Active Test strips Diabetic Test Strips to check blood glucose 2 times a day as directed Dec, Active Tramadol HCl 50 mg Orally 2 times a day 1 tablet as needed 12h Oct, Active Lactulose 10 GM/15ML Orally twice a day 15 ml 12h Jun, Dec, 90 days Active Albuterol Sulfate (2.5 MG/3ML) 0.083% Inhalation every 4 hrs 3 ml as needed 4h Sep, 30 days Active Atorvastatin Calcium 20MG TAKE 1 TABLET BY MOUTH DAILY Active Omeprazole 20 mg TAKE 1 CAPSULE BY MOUTH DAILY 30 Active Clindamycin HCl 300 MG Orally every 8 hrs 1 capsule 8h Mar, Mar, 07 days Active Albuterol 90 MCG/ACT Inhalation 4 times a day 2 puffs as needed for SOB 6h Jul, Active Test strips test blood sugar h Dec, 25 days Active Lisinopril 20 MG 30 Active Metoprolol Tartrate 50 mg Orally Twice a day 1 tablet with food 12h 30 Active Accu-Chek Christina Plus - subcutaneously 3 times a day to check blood sugar 8h January, Active RESULTS No Results PROCEDURES Procedure Date Ordered Result Body Site [facility] VISIT ESTABLISHED PATIENT April 13, 2018 INSTRUCTIONS MEDICATIONS ADMINISTERED No Known Medications [...]
--- OUTSIDE RECORDS SUMMARY | 2019-04-25 17:03 | XMS REPORT ---
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 [facility] [id number], [place] [address] Dec, [facility] [id number] [place] [address] Aug, [facility] [address] [id number], [place] [address] Aug, [facility] [id number] [place] [address] Jul, [facility] [id number], [place] [address] Jul, [facility] [id number], [place] [address] Jul, [facility] [id number], [place] [address] Jun, [facility] [id number], [place] [address] 13 Jun, 2010 [facility] [address] [id number], [place] [address] 13 Jun, 2010 [facility] [address] [id number], [place] [address] 15 May, 2010 [facility] [address] [facility] [id number], [place] [address] 15 Feb, 2010 [facility] [id number] [address] January, IMMUNIZATIONS No Known Immunizations SOCIAL HISTORY Never Assessed REASON FOR VISIT Leg swelling/pain, bilateral x 1 week----DBennettSunitaN PLAN OF CARE Activity Details Follow Up 4 Weeks Reason:edema VITAL SIGNS Height 69 in 2018-03-12 Weight 240 lbs 2018-03-12 Temperature 98.0 degrees Fahrenheit 2018-03-12 Heart Rate 60 bpm 2018-03-12 Respiratory Rate 20 2018-03-12 BMI 35.44 kg/m2 2018-03-12 Blood pressure systolic 124 mmHg 2018-03-12 Blood pressure diastolic 68 mmHg 2018-03-12 MEDICATIONS Medication Instructions Dosage Frequency Start Date End Date Duration Status Ondansetron 4MG ODT PLACE 1 TABLET UNDER THE TONGUE THREE TIMES DAILY Active Nebulizer - as directed Sep, lifetime Active Accu-Chek Christina Plus - subcutaneously 3 times a day to check blood sugar 8h January, Active Lancets - to check blood glucose 2 times a day as directed Dec, Active Test strips Diabetic Test Strips to check blood glucose 2 times a day as directed Dec, Active Lisinopril 20 MG 20 MG PO DAILY Active BD Pen Needle Short U/F 31G X 8 MM SQ 5 times a day as directed May, 30 days Active NovoLog Flexpen 100 UNIT/ML Subcutaneous 3 times a day ac meals 2 units Active Levemir FlexTouch 100 UNIT/ML Subcutaneous 2 times a day 30 units 12h 25 Active Glucometer test blood sugar 12h Dec, 25 days Active Atorvastatin Calcium 20 mg TAKE 1 TABLET BY MOUTH DAILY 30 Active Omeprazole 20 mg TAKE 1 CAPSULE BY MOUTH DAILY 30 Active Tramadol HCl 50 mg Orally 2 times a day 1 tablet as needed 12h Oct, Active Ondansetron 4 MG Orally every 8 hrs as needed 1 tablet on the tongue and allow to dissolve 30 days Not-Taking Test strips test blood sugar 12h Dec, 25 days Active Albuterol Sulfate (2.5 MG/3ML) 0.083% Inhalation every 4 hrs 3 ml as needed 4h Sep, 30 days Active Metoprolol Tartrate 50 mg Orally Twice a day 1 tablet with food 12h 30 Active Albuterol 90 MCG/ACT Inhalation 4 times a day 2 puffs as needed for SOB 6h Jul, Active Lactulose 10 GM/15ML Orally twice a day 15 ml 12h Jun, 90 days Active Lasix 20 mg Orally Once a day 1 tablet 24h Feb, 90 days Active RESULTS No Results PROCEDURES Procedure Date Ordered Result Body Site [facility] VISIT ESTABLISHED PATIENT March 12, 2018 INSTRUCTIONS MEDICATIONS ADMINISTERED No Known Medications [...]
--- OUTSIDE RECORDS SUMMARY | 2019-04-25 17:04 | XMS REPORT ---
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 [address] Jun, [facility] [address] [facility] [id number] [place] [address] 15 May, 2010 [facility] [address] [facility] [id number] [place] [address] 15 Feb, 2010 [facility] [place] [facility] [address] [facility] [id number], [place] [address] January, IMMUNIZATIONS No Known Immunizations SOCIAL HISTORY Never Assessed REASON FOR VISIT Requests return call PLAN OF CARE VITAL SIGNS MEDICATIONS Unknown [...]
--- OUTSIDE RECORDS SUMMARY | 2019-04-25 17:05 | XMS REPORT ---
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 [address] [id number], [place] [address] 09 Jul, 2011 [facility] [place] [address] [facility] [id number], [place] [address] 09 Jul, 2011 [facility] [place] [address] [facility] [id number], [place] [address] 24 Jun, 2011 [facility] [place] [id number], [place] [address] Jun, [facility] [address] [facility] [id number], [place] [address] Dec, [facility] [place] [id number] [place] [address] Aug, [facility] [place] [address] [id number], [place] [address] Aug, [facility] [place] [id number] [place] [address] Jul, [facility] [place] [id number], [place] [address] Jul, [facility] [place] [id number], [place] [address] Jul, [facility] [place] [id number], [place] [address] Jun, [facility] [place] [id number], [place] [address] 13 Jun, 2010 [facility] [place] [address] [id number], [place] [address] 13 Jun, 2010 [facility] [place] [address] [id number], [place] [address] 15 May, 2010 [facility] [place] [address] [facility] [id number], [place] [address] 15 Feb, 2010 [facility] [place] [id number], [place] [address] January, IMMUNIZATIONS No Known Immunizations SOCIAL HISTORY Never Assessed REASON FOR VISIT PT was called and asked to come in today so he thinks it has to do with his stre ss test-Alfredito FLANNERY PLAN OF CARE Activity Details Follow Up 3 Months Reason:DMT2/Liver VITAL SIGNS Height 69 in 2018-01-21 Weight 239.0 lbs 2018-01-21 Temperature 97.9 degrees Fahrenheit 2018-01-21 Heart Rate 62 bpm 2018-01-21 Respiratory Rate 20 2018-01-21 BMI 35.29 kg/m2 2018-01-21 Blood pressure systolic 112 mmHg 2018-01-21 Blood pressure diastolic 70 mmHg 2018-01-21 MEDICATIONS Medication Instructions Dosage Frequency Start Date End Date Duration Status Test strips test blood sugar 12h Dec, 25 days Active Lactulose 10 GM/15ML Orally twice a day 15 ml 12h Jun, 90 days Active Albuterol 90 MCG/ACT Inhalation 4 times a day 2 puffs as needed for SOB 6h Jul, Active NovoLog Flexpen 100 UNIT/ML Subcutaneous 3 times a day ac meals 6 units Active Omeprazole 20 TAKE 1 CAPSULE BY MOUTH DAILY 30 Active BD Pen Needle Short U/F 31G X 8 MM SQ 5 times a day as directed May, 30 days Active Atorvastatin Calcium 20 TAKE 1 TABLET BY MOUTH DAILY 30 Active Tramadol HCl 50 mg Orally 2 times a day 1 tablet as needed 12h 28 Oct, 2017 Active Lisinopril 20 MG 20 MG PO DAILY Active Nebulizer - as directed Sep, lifetime Active Albuterol Sulfate (2.5 MG/3ML) 0.083% Inhalation every 4 hrs 3 ml as needed 4h 10 Sep, 2017 30 days Active Levemir FlexTouch 100 UNIT/ML Subcutaneous 2 times a day 30 units 12h 25 days Active Albuterol Sulfate HFA 108 (90 Base) MCG/ACT Inhalation every 6 hrs 2 puffs as needed 6h 06 Sep, 2017 Active Lancets - to check blood glucose 2 times a day as directed Dec, Active Test strips Diabetic Test Strips to check blood glucose 2 times a day as directed Dec, Active Metoprolol Tartrate 50 mg Orally Twice a day 1 tablet with food 12h 30 Active Glucometer test blood sugar 12h Dec, 25 days Active Ondansetron 4 MG Orally every 8 hrs as needed 1 tablet on the tongue and allow to dissolve 30 days Not-Taking RESULTS Name Result Date Reference Range A1C (IN HOUSE) 2018-01-21 A1C IN HOUSE 7.5 4.3 - 5.6 % Previous A1c 8.1 Lot [id number] Exp date 10/2019 MICROALBUMIN, URINE (IN HOUSE) 2018-01-21 MICROALBUMIN Lot # [id number] Exp date 08/2018 Clarity clear Color yellow ALB 10 CRE 100 A:C (IN HOUSE) 30 Control Control Lot # Exp date PROCEDURES Procedure Date Ordered Result Body Site GLYCATED HEMOGLOBIN TEST January 21, 2018 MICROALBUMIN, SEMIQUANT January 21, 2018 [facility] VISIT ESTABLISHED PATIENT January 21, 2018 INSTRUCTIONS MEDICATIONS ADMINISTERED No Known Medications [...]
--- OUTSIDE RECORDS SUMMARY | 2019-04-25 17:05 | XMS REPORT ---
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 [address] [facility] [place] [id number], [place] [address] Jun, [facility] [address] [facility] [place] [id number] [place] [address] 15 May, 2010 [facility] [address] [facility] [place] [id number] [place] [address] 15 Feb, 2010 [facility] [address] [facility] [place] [id number], [place] [address] January, IMMUNIZATIONS No Known Immunizations SOCIAL HISTORY Never Assessed REASON FOR VISIT DM ED Attempt PLAN OF CARE VITAL SIGNS MEDICATIONS Unknown [...]
--- OUTSIDE RECORDS SUMMARY | 2019-04-25 17:06 | XMS REPORT ---
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 [facility] [place] [facility] [id number] [address] 09 Jul, 2011 [facility] [address] [facility] [id number] [place] [address] 24 Jun, 2011 [facility] [address] [facility] [id number] [place] [address] Jun, [facility] [address] [facility] [id number] [place] [address] Dec, [facility] [address] [facility] [id number] [address] Aug, [facility] [id number] [place] [address] Aug, [facility] [id number] [address] Jul, [facility] [id number] [place] [address] Jul, [facility] [id number] [address] Jul, [facility] [id number] [address] Jun, [facility] [id number] [address] Jun, [facility] [id number] [address] Jun, [facility] [address] [id number] [address] May, [facility] [id number] [address] Feb, [facility] [id number] [address] January, IMMUNIZATIONS No Known Immunizations SOCIAL HISTORY Never Assessed REASON FOR VISIT Refill request PLAN OF CARE VITAL SIGNS MEDICATIONS Medication Instructions Dosage Frequency Start Date End Date Duration Status Lisinopril 20 MG 20 MG PO DAILY Active Metoprolol Tartrate 50 mg Orally Twice a day 1 tablet with food 12h 30 Active NovoLog Flexpen 100 UNIT/ML Subcutaneous 3 times a day ac meals 6 units Active Atorvastatin Calcium 20 mg TAKE 1 TABLET BY MOUTH DAILY 30 Active Levemir FlexTouch 100 UNIT/ML Subcutaneous 2 times a day 30 units 12h 25 days Active Omeprazole 20 mg TAKE 1 CAPSULE BY MOUTH DAILY 30 Active RESULTS No Results PROCEDURES No Known [...]
--- OUTSIDE RECORDS SUMMARY | 2019-04-25 17:07 | XMS REPORT ---
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 Feb, [facility] [place] [facility] [address] [id number] [place] [address] January, [facility] [place] [facility] [address] [id number] [place] [address] January, [facility] [place] [facility] [address] [id number] [place] [address] Nov, [facility] [place] [facility] [address] [id number] [place] [address] Nov, [facility] [place] [facility] [address] [id number] [place] [address] Nov, [facility] [place] [facility] [address] [id number] [place] [address] Nov, [facility] [place] [facility] [address] [id number] [place] [address] Nov, [facility] [place] [facility] [address] [id number] [place] [address] Oct, [facility] [place] [facility] [address] [id number] [place] [address] Jul, [facility] [place] [facility] [address] [id number] [place] [address] Jul, [facility] [place] [facility] [id number] [address] Jul, [facility] [place] [address] [facility] [id number], [place] [address] Jun, [facility] [place] [address] [facility] [id number], [place] [address] Jun, [facility] [place] [id number], [place] [address] Dec, [facility] [place] [address] [facility] [id number], [place] [address] Aug, [facility] [place] [id number] [place] [address] Aug, [facility] [place] [id number], [place] [address] Jul, [facility] [place] [id number] [place] [address] Jul, [facility] [place] [id number], [place] [address] Jul, [facility] [place] [id number], [place] [address] Jun, [facility] [place] [id number], [place] [address] Jun, [facility] [place] [id number], [place] [address] Jun, [facility] [place] [address] [id number], [place] [address] May, [facility] [place] [id number], [place] [address] Feb, [facility] [place] [id number], [place] [address] January, IMMUNIZATIONS No Known Immunizations SOCIAL HISTORY Never Assessed REASON FOR VISIT Test strips PLAN OF CARE VITAL SIGNS MEDICATIONS Medication Instructions Dosage Frequency Start Date End Date Duration Status Accu-Chek Christina Plus - subcutaneously 3 times a day to check blood sugar 8h January, Active RESULTS No Results PROCEDURES No Known [...]
--- OUTSIDE RECORDS SUMMARY | 2019-04-25 17:08 | XMS REPORT ---
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 [place] [facility] [address] [id number] [place] [address] Oct, [facility] [place] [facility] [address] [id number] [place] [address] Jul, [facility] [place] [facility] [address] [id number] [place] [address] Jul, [facility] [place] [facility] [id number] [address] Jul, [facility] [id number], [place] [address] Jun, [facility] [address] [id number] [address] Jun, [facility] [id number], [place] [address] Dec, [facility] [address] [facility] [id number], [place] [address] Aug, [facility] [id number] [place] [address] Aug, [facility] [id number], [place] [address] Jul, [facility] [id number] [place] [address] Jul, [facility] [id number], [place] [address] Jul, [facility] [id number], [place] [address] Jun, [facility] [id number], [place] [address] Jun, [facility] [id number], [place] [address] Jun, [facility] [id number], [place] [address] May, [facility] [id number], [place] [address] Feb, [facility] [id number], [place] [address] January, IMMUNIZATIONS No Known Immunizations SOCIAL HISTORY Never Assessed REASON FOR VISIT Stress Test PLAN OF CARE VITAL SIGNS MEDICATIONS Unknown [...]
--- OUTSIDE RECORDS SUMMARY | 2019-04-25 17:08 | XMS REPORT ---
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 [facility] [id number] [place] [address] Aug, [facility] [address] [id number], [place] [address] Aug, [facility] [id number] [place] [address] Jul, [facility] [id number], [place] [address] Jul, [facility] [id number], [place] [address] Jul, [facility] [id number], [place] [address] Jun, [facility] [id number], [place] [address] 13 Jun, 2010 [facility] [address] [id number], [place] [address] 13 Jun, 2010 [facility] [address] [id number], [place] [address] 15 May, 2010 [facility] [address] [facility] [id number], [place] [address] 15 Feb, 2010 [facility] [id number], [place] [address] January, IMMUNIZATIONS No Known Immunizations SOCIAL HISTORY Never Assessed REASON FOR VISIT ER f/u- Chest pain- Rivera Lawson RN PLAN OF CARE Activity Details Follow Up after stress test Reason: VITAL SIGNS Height 69 in 2017-12-11 Weight 279 lbs 2017-12-11 Temperature 98.0 degrees Fahrenheit 2017-12-11 Heart Rate 74 bpm 2017-12-11 Respiratory Rate 18 2017-12-11 BMI 41.20 kg/m2 2017-12-11 Blood pressure systolic 128 mmHg 2017-12-11 Blood pressure diastolic 76 mmHg 2017-12-11 MEDICATIONS Medication Instructions Dosage Frequency Start Date End Date Duration Status Levemir FlexTouch 100 UNIT/ML Subcutaneous at bedtime 30 units 30 days Active Lisinopril 20 MG 20 MG PO DAILY Active Albuterol 90 MCG/ACT Inhalation 4 times a day 2 puffs as needed for SOB 6h Jul, Active NovoLog Flexpen 100 UNIT/ML Subcutaneous 3 times a day ac meals 5 units 30 days Active Metoprolol Tartrate 50 mg Orally Twice a day 1 tablet with food 12h Jun, 30 day(s) Active Atorvastatin Calcium 20 mg Orally Once a day 1 tablet 24h 30 Active Albuterol Sulfate HFA 108 (90 Base) MCG/ACT Inhalation every 6 hrs 2 puffs as needed 6h Sep, Unknown Nebulizer - as directed Sep, lifetime Active Omeprazole 20 TAKE 1 CAPSULE BY MOUTH DAILY 30 Active Albuterol Sulfate (2.5 MG/3ML) 0.083% Inhalation every 4 hrs 3 ml as needed 4h 10 Sep, 2017 30 days Active Tramadol HCl 50 mg Orally 2 times a day 1 tablet as needed 12h 28 Oct, 2017 Active BD Pen Needle Short U/F 31G X 8 MM SQ 5 times a day as directed May, Active Ondansetron 4 MG Orally every 8 hrs as needed 1 tablet on the tongue and allow to dissolve 30 days Unknown Lactulose 10 GM/15ML Orally twice a day 15 ml 12h Jun, 90 days Active RESULTS No Results PROCEDURES Procedure Date Ordered Result Body Site VENIPUNCT, ROUTINE* December 11, 2017 [facility] VISIT ESTABLISHED PATIENT December 11, 2017 INSTRUCTIONS MEDICATIONS ADMINISTERED No Known Medications MEDICAL [...]
--- OUTSIDE RECORDS SUMMARY | 2019-04-25 17:09 | XMS REPORT ---
Author Author RONALD KELLEY Organization [facility] Address [address] [place] [address] Care Team Providers Care Corporate Director Of Pharmacy Name Role Phone RONALD KELLEY Unavailable PROBLEMS Type Condition ICD9-CM Code DHH07-AQ Code Onset Dates Condition Status SNOMED Code Problem Hyperlipidemia, mixed E78.2 Active 385742560 Problem Depression, unspecified depression type F32.9 Active 28911259 Problem Neuropathy, diabetic E11.40 Active 191835000 Problem Mood disorder F39 Active 79371586 Problem Primary insomnia F51.01 Active 369595595 Problem Hypertension, benign I10 Active 00886338 Problem Edema, unspecified type R60.9 Active 865550811 Problem Diabetes E11.9 Active 692540545 Problem Cirrhosis of liver without ascites, unspecified hepatic cirrhosis type K74.60 Active 97896493 Problem Type 2 diabetes mellitus without complications E11.9 Active 339009032 Problem Precordial pain R07.2 Active 54139415 Problem Chronic obstructive pulmonary disease, unspecified COPD type J44.9 Active 44161745 ALLERGIES No Information ENCOUNTERS Encounter Location Date Diagnosis [facility] [id number] [place] [address] Mar, [facility] [id number] [place] [address] Mar, [facility] [id number] [place] [address] Feb, Cirrhosis of liver without ascites, unspecified hepatic cirrhosis type K74.60 and Edema, unspecified type R60.9 [facility] [id number] [place] [address] Feb, [facility] [id number] [place] [address] January, [place] [address], [place] [address] January, Diabetes E11.9 [place] [id number] [place] [address] January, Diabetes E11.9 [place] [id number] [place] [address] Dec, Diabetes E11.9 ; Mood disorder F39 ; Hyperlipidemia, mixed E78.2 ; Precordial pain R07.2 ; Type 2 diabetes mellitus with hyperglycemia E11.65 and superintendent terminal current use of insulin Z79.4 [place] [id number] [place] [address] Dec, [place] [id number] [place] [address] Nov, [place] [id number] [place] [address] Nov, Cirrhosis of liver without ascites, unspecified hepatic cirrhosis type K74.60 ; Type 2 diabetes mellitus without complications E11.9 ; Precordial pain R07.2 and BMI 40.0-44.9, adult Z68.41 [address] [place] [address] Nov, Cirrhosis of liver without ascites, unspecified hepatic cirrhosis type K74.60 [place] [id number] [place] [address] Oct, [place] [id number] [place] [address] Oct, Cirrhosis of liver without ascites, unspecified hepatic cirrhosis type K74.60 ; Chronic obstructive pulmonary disease, unspecified COPD type J44.9 and Influenza-like illness R69 [address], [place] [address] Oct, [place] [id number] [place] [address] Oct, [facility] [address], [place] [address] Oct, Cirrhosis of liver without ascites, unspecified hepatic cirrhosis type K74.60 [facility] [address], [place] [address] Sep, [facility] [id number] [place] [address] Sep, Chronic obstructive pulmonary disease, unspecified COPD type J44.9 [facility] [id number] [place] [address] Sep, Cirrhosis of liver without ascites, unspecified hepatic cirrhosis type K74.60 and Chronic obstructive pulmonary disease, unspecified COPD type J44.9 [facility] [id number] [place] [address] Aug, [facility] [id number] [place] [address] Aug, Cirrhosis of liver without ascites, unspecified hepatic cirrhosis type K74.60 [facility] [id number] [place] [address] Aug, [facility] [address], [place] [address] Aug, [facility] [address], [place] [address] Jul, [facility] [id number] [place] [address] Jul, Diabetes E11.9 and Viral gastroenteritis A08.4 [facility] [id number] [place] [address] Jul, Cirrhosis of liver without ascites, unspecified hepatic cirrhosis type K74.60 and Chronic obstructive pulmonary disease, unspecified COPD type J44.9 [facility] [address], [place] [address] Jul, [facility] [id number] [place] [address] Jul, Cirrhosis of liver without ascites, unspecified hepatic cirrhosis type K74.60 [facility] [id number] [place] [address] Jul, [facility] [id number] [place] [address] Jul, [facility] [id number] [place] [address] Jun, Cirrhosis of liver without ascites, unspecified hepatic cirrhosis type K74.60 and Viral gastroenteritis A08.4 [facility] [id number] [place] [address] Jun, Nausea and vomiting, intractability of vomiting not specified, unspecified vomiting type R11.2 ; Acute nonintractable headache, unspecified headache type R51 and History of encephalopathy Z86.69 [facility] [id number] [place] [address] Jun, [facility] [id number] [place] [address] Jun, Neuropathy, diabetic E11.40 and Hypertension, benign I10 [facility] [id number] [place] [address] Jun, [facility] [id number] [place] [address] Jun, [facility] [id number] [place] [id number] Jun, [facility] [id number] [place] [address] Jun, [facility] [id number] [place] [address] Jun, [facility] [id number] [place] [address] Jun, Viral gastroenteritis A08.4 and Diabetes E11.9 [facility] [address] [place] [address] May, Lumbago with sciatica, left side M54.42 [facility] [id number] [place] [address] May, Lumbago with sciatica, left side M54.42 [facility] [id number] [place] [address] May, [facility] [id number] [place] [address] May, [facility] [id number] [place] [address] Apr, Lumbago with sciatica, left side M54.42 ; Neuropathy, diabetic E11.40 and Mood disorder F39 [facility] [id number] [place] [address] Apr, [facility] [id number] [place] [address] Apr, [facility] [id number] [place] [address] Mar, Other chronic pain G89.29 and Type 2 diabetes mellitus without complications E11.9 [facility] [id number] [place] [address] Mar, Other chronic pain G89.29 [facility] [address] [place] [address] Feb, Other chronic pain G89.29 [facility] [id number] [place] [address] January, Shoulder pain, left M25.512 and Other chronic pain G89.29 [facility] [id number] [place] [address] January, [facility] [address], [place] [address] January, 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 [facility] [address], [place] [address] January, Diabetes E11.9 [facility] [address], [place] [address] January, Diabetes E11.9 ; Chronic pain disorder G89.4 ; Lumbago with sciatica, left side M54.42 and Other acute postprocedural pain G89.18 [facility] [id number] [place] [address] Dec, 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 [facility] [id number] [place] [address] Nov, 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 [facility] [address], [place] [address] Nov, 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 [facility] [address] [place] [address] Oct, Diabetes E11.9 [facility] [address], [place] [address] Oct, Diabetes E11.9 ; Neuropathy, diabetic E11.40 and 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 [facility] [address], [place] [address] Sep, [facility] [address] [place] [address] Aug, Diabetes type 2, controlled E11.9 [facility] [address], [place] [address] Aug, Diabetic mononeuropathy associated with type 2 diabetes mellitus E11.41 [facility] [id number] [place] [address] Jul, [facility] [id number] [place] [address] Jul, Primary insomnia F51.01 [facility] [id number] [place] [address] Jun, [facility] [id number] [place] [address] Jun, Diabetes E11.9 ; Primary insomnia F51.01 and Depression, unspecified depression type F32.9 [facility] [id number] [place] [address] Jun, [facility] [id number] [place] [address] Jun, [facility] [id number] [place] [address] May, [facility] [id number] [place] [address] May, Mood disorder F39 [facility] [id number] [place] [address] Apr, [facility] [id number] [place] [address] Mar, Acute cystitis without hematuria N30.00 [facility] [address] [address] Feb, Diabetes E11.9 [facility] [address], [place] [address] January, [facility] [id number] [place] [address] January, [facility] [address] [place] [address] January, Acute cystitis without hematuria N30.00 ; 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 ; Fatigue, unspecified type R53.83 and Weight loss, abnormal R63.4 [facility] [address] [place] [address] January, [facility] [id number] [place] [address] Dec, [facility] [id number] [place] [address] Nov, [facility] [address] [address] Nov, Neuropathy, diabetic E11.40 [place] [address] [address] Oct, Neuropathy, diabetic E11.40 [place] [address] [address] Oct, [place] [address] [address] Oct, [facility] [id number] [place] [address] Oct, [place] [id number] [place] [address] Aug, [place] [address] [place] [address] Aug, Type 2 diabetes mellitus with foot ulcer E11.621 ; Nausea R11.0 ; Other complications following infusion, transfusion and therapeutic injection, initial encounter T80.89XA ; Hyperlipidemia, mixed E78.2 and Nail ingrowing L60.0 [place] [address] [place] [address] Jul, [place] [address] [place] [address] Jul, Diabetes E11.9 [place] [address] [address] Jul, Type 2 diabetes mellitus with foot ulcer E11.621 and Non-pressure chronic ulcer of other part of left foot with unspecified severity L97.529 [place] [address] [place] [address] Jun, Diabetes E11.9 ; Shoulder pain, left M25.512 ; Abdominal pain, lower R10.30 ; Hepatitis C, chronic B18.2 and Diabetes mellitus without mention of complication, type II or unspecified type, not stated as uncontrolled 250.00 [place] [address] [address] Jun, Cellulitis, abdominal wall L03.311 and Nocturnal hypoxemia G47.34 [place] [address] [address] [place] [address] Jun, Diabetes mellitus without mention of complication, type II or unspecified type, not stated as uncontrolled 250.00 [place] [address] [address] May, Diabetes mellitus without mention of complication, type II or unspecified type, not stated as uncontrolled 250.00 [place] [id number] [place] [address] May, Abdominal pain 789.00 [place] [address] [place] [address] May, [place] [address] [address] [id number] [place] [address] May, [facility] [address] [place] [address] May, Diabetes mellitus without mention of complication, type II or unspecified type, not stated as uncontrolled 250.00 [facility] [address] [place] [address] Apr, [place] [address] [place] [address] Mar, [place] [address], [place] [address] Mar, Diabetes mellitus without mention of complication, type II or unspecified type, not stated as uncontrolled 250.00 [facility] [address], [place] [address] Feb, Diabetes mellitus without mention of complication, type II or unspecified type, not stated as uncontrolled 250.00 and Chronic pain 338.29 [facility] [address], [place] [address] Feb, [facility] [address] [id number] [address] January, Diabetes mellitus without mention of complication, type II or unspecified type, not stated as uncontrolled 250.00 and Chronic pain 338.29 [facility] [address], [place] [address] January, [facility] [address], [place] [address] Dec, [facility] [address], [place] [address] Dec, [facility] [address], [place] [address] Oct, [facility] [id number], [place] [address] Oct, [facility] [address], [place] [address] Oct, [facility] [id number], [place] [address] Oct, [facility] [address], [place] [address] Oct, [facility] [id number], [place] [address] Oct, [facility] [id number] [place] [address] Oct, 2014 [facility] [place] [facility] [address] [id number] [place] [address] Oct, 2014 [facility] [place] [facility] [address] [id number] [place] [address] Oct, 2014 [facility] [place] [facility] [address] [id number] [place] [address] Oct, 2014 [facility] [place] [facility] [address] [id number] [place] [address] Oct, 2014 [facility] [place] [facility] [address] [id number] [place] [address] Oct, 2014 [facility] [place] [facility] [address] [facility] [id number] [place] [address] Sep, [facility] [place] [facility] [address] [facility] [id number] [place] [address] Sep, [facility] [place] [facility] [address] [id number] [place] [address] Aug, [facility] [place] [facility] [address] [id number] [place] [address] Aug, [facility] [place] [facility] [address] [facility] [id number] [place] [address] Aug, [facility] [place] [facility] [address] [facility] [id number] [place] [address] Aug, [facility] [place] [facility] [address] [id number] [place] [address] Aug, [facility] [place] [facility] [address] [id number] [place] [address] Aug, [facility] [place] [facility] [address] [id number] [place] [address] Aug, [facility] [place] [facility] [address] [id number] [place] [address] Aug, [facility] [place] [facility] [address] [id number] [place] [address] Aug, [facility] [place] [facility] [address] [id number] [place] [address] Aug, [facility] [place] [facility] [address] [id number] [place] [address] Jul, [facility] [place] [facility] [address] [id number] [place] [address] Jul, [facility] [place] [facility] [address] [id number] [place] [address] Jun, [facility] [place] [facility] [address] [id number] [place] [address] Jun, [facility] [place] [facility] [address] [id number] [place] [address] Jun, [facility] [place] [facility] [address] [id number] [place] [address] Jun, [facility] [place] [facility] [address] [id number] [place] [address] Jun, [facility] [place] [facility] [address] [id number] [place] [address] Jun, [facility] [place] [facility] [address] [id number], [place] [address] Jun, [facility] [place] [facility] [address] [id number], [place] [address] 30 May, 2014 [facility] [place] [facility] [address] [id number] [place] [address] 30 May, 2014 [facility] [place] [facility] [address] [id number] [place] [address] 30 May, 2014 [facility] [place] [facility] [address] [id number] [place] [address] 30 May, 2014 [facility] [place] [facility] [address] [id number] [place] [address] May, 2013 [facility] [place] [facility] [address] [id number] [place] [address] May, 2013 [facility] [place] [facility] [address] [id number] [place] [address] May, 2013 [facility] [place] [facility] [address] [id number] [place] [address] May, 2013 [facility] [place] [facility] [address] [id number] [place] [address] May, 2013 [facility] [place] [facility] [address] [id number] [place] [address] May, 2013 [facility] [place] [facility] [address] [id number] [place] [address] May, 2013 [facility] [place] [facility] [address] [id number] [place] [address] May, 2013 [facility] [place] [facility] [address] [id number] [place] [address] May, 2013 [facility] [place] [facility] [address] [id number] [place] [address] Mar, 2013 [facility] [place] [facility] [address] [id number] [place] [address] Mar, [facility] [place] [facility] [address] [id number] [place] [address] Mar, 2013 [facility] [place] [facility] [address] [id number] [place] [address] Mar, [facility] [place] [facility] [address] [id number] [place] [address] Mar, [facility] [place] [facility] [address] [id number] [place] [address] Mar, 2013 [facility] [place] [facility] [address] [id number] [place] [address] Feb, [facility] [place] [facility] [address] [id number] [place] [address] Feb, [facility] [place] [facility] [address] [id number] [place] [address] Feb, [facility] [place] [facility] [address] [id number] [place] [address] Feb, [facility] [place] [facility] [address] [id number] [place] [address] Feb, [facility] [place] [facility] [address] [id number] [place] [address] Feb, [facility] [place] [facility] [address] [id number] [place] [address] Feb, [facility] [place] [facility] [address] [id number] [place] [address] Feb, [facility] [place] [facility] [address] [id number] [place] [address] Feb, [facility] [place] [facility] [address] [id number] [place] [address] January, [facility] [place] [facility] [address] [id number] [place] [address] January, [facility] [place] [facility] [address] [id number] [place] [address] Dec, [facility] [place] [facility] [address] [id number] [place] [address] Dec, [facility] [place] [facility] [address] [id number] [place] [address] Dec, [facility] [place] [facility] [address] [id number] [place] [address] Dec, [facility] [place] [facility] [address] [id number] [place] [address] Nov, [facility] [place] [facility] [address] [id number] [place] [address] Nov, [facility] [place] [facility] [address] [id number] [place] [address] Nov, [facility] [place] [facility] [address] [id number] [place] [address] Nov, [facility] [place] [facility] [address] [id number] [place] [address] Nov, [facility] [place] [facility] [address] [id number] [place] [address] Nov, [facility] [place] [facility] [address] [id number] [place] [address] Nov, [facility] [place] [facility] [address] [id number] [place] [address] Nov, [facility] [place] [facility] [address] [id number] [place] [address] Nov, [facility] [place] [facility] [address] [id number] [place] [address] Nov, [facility] [place] [facility] [address] [id number] [place] [address] Oct, [facility] [place] [facility] [address] [id number] [place] [address] Oct, [facility] [place] [facility] [address] [id number] [place] [address] Sep, [facility] [place] [facility] [address] [id number] [place] [address] Sep, [facility] [place] [facility] [address] [id number] [place] [address] Sep, [facility] [place] [facility] [address] [id number] [place] [address] Aug, [facility] [place] [facility] [address] [id number] [place] [address] Aug, [facility] [place] [facility] [address] [id number] [place] [address] Aug, [facility] [place] [facility] [address] [id number] [place] [address] Aug, [facility] [place] [facility] [address] [id number] [place] [address] Jul, [facility] [place] [facility] [address] [id number] [place] [address] Jul, [facility] [place] [facility] [address] [id number] [place] [address] Jul, [facility] [place] [facility] [address] [id number] [place] [address] Jul, [facility] [place] [facility] [address] [id number] [place] [address] Jun, [facility] [place] [facility] [address] [id number] [place] [address] Jun, [facility] [place] [facility] [address] [id number] [place] [address] Jun, [facility] [place] [facility] [address] [id number] [place] [address] Jun, [facility] [place] [facility] [address] [id number] [place] [address] Jun, [facility] [place] [facility] [address] [id number] [place] [address] Jun, [facility] [place] [facility] [address] [id number] [place] [address] Jun, [facility] [place] [facility] [address] [id number] [place] [address] Jun, [facility] [place] [facility] [address] [id number] [place] [address] May, [facility] [place] [facility] [address] [id number] [place] [address] Apr, [facility] [address] [id number] [place] [address] Mar, [facility] [place] [facility] [address] [id number] [place] [address] Mar, [facility] [place] [facility] [address] [id number] [place] [address] Feb, [facility] [place] [facility] [address] [id number] [place] [address] Feb, [facility] [place] [facility] [address] [id number] [place] [address] Feb, [facility] [place] [facility] [address] [id number] [place] [address] Dec, [facility] [place] [facility] [address] [id number] [place] [address] Dec, [facility] [place] [facility] [address] [id number] [place] [address] Dec, [facility] [place] [facility] [address] [id number] [place] [address] Nov, [facility] [place] [facility] [address] [id number] [place] [address] Oct, [facility] [place] [facility] [address] [id number] [place] [address] Oct, [facility] [place] [facility] [address] [id number], [place] [address] Oct, [facility] [place] [facility] [address] [id number] [place] [address] Oct, [facility] [place] [facility] [address] [id number] [place] [address] Sep, [facility] [place] [facility] [address] [id number] [place] [address] Sep, [facility] [place] [facility] [address] [id number] [place] [address] 31 Aug, 2012 [facility] [address] [id number] [place] [address] 31 Aug, 2012 [facility] [address] [id number] [place] [address] Aug, [facility] [address] [id number] [place] [address] Aug, [facility] [address] [id number] [place] [address] Aug, [facility] [address] [id number] [place] [address] Aug, [facility] [address] [id number] [place] [address] 18 Aug, 2012 [facility] [address] [id number] [place] [address] 18 Aug, 2012 [facility] [address] [id number] [place] [address] 14 Aug, 2012 [facility] [address] [id number] [place] [address] 14 Aug, 2012 [facility] [address] [id number] [place] [address] 10 Aug, 2012 [facility] [place] [facility] [address] [id number] [place] [address] Aug, [facility] [place] [facility] [address] [id number] [place] [address] Jul, [facility] [place] [facility] [address] [id number] [place] [address] Jul, [facility] [place] [facility] [address] [id number] [place] [address] Jul, [facility] [place] [facility] [address] [id number] [place] [address] Jul, [facility] [place] [facility] [address] [id number] [place] [address] Jul, [facility] [place] [facility] [address] [id number] [place] [address] Jul, [facility] [place] [facility] [address] [id number] [place] [address] Jul, [facility] [place] [facility] [address] [id number] [place] [address] Jul, [facility] [place] [facility] [address] [id number] [place] [address] Jul, [facility] [place] [facility] [address] [id number] [place] [address] Jul, [facility] [place] [facility] [address] [id number] [place] [address] Jun, [facility] [place] [facility] [address] [id number] [place] [address] Jun, [facility] [place] [facility] [address] [id number] [place] [address] Jun, [facility] [place] [facility] [address] [id number] [place] [address] Jun, [facility] [place] [facility] [address] [id number] [place] [address] Apr, [facility] [place] [facility] [address] [id number], [place] [address] Mar, [facility] [place] [facility] [address] [id number] [place] [address] Mar, [facility] [place] [facility] [address] [id number] [place] [address] Mar, [facility] [place] [facility] [address] [id number] [place] [address] Mar, [facility] [place] [facility] [address] [id number], [place] [address] Mar, [facility] [place] [facility] [address] [id number] [place] [address] Feb, [facility] [place] [facility] [address] [id number] [place] [address] Feb, [facility] [place] [facility] [address] [facility] [id number] [place] [address] January, [facility] [place] [facility] [address] [id number] [place] [address] January, [facility] [place] [facility] [address] [id number] [place] [address] Nov, [facility] [place] [facility] [address] [id number] [place] [address] Nov, [facility] [place] [facility] [address] [facility] [id number] [place] [address] Nov, [facility] [place] [facility] [address] [facility] [id number] [place] [address] Nov, [facility] [place] [facility] [address] [facility] [id number] [place] [address] Nov, [facility] [place] [facility] [address] [facility] [id number] [place] [address] Oct, [facility] [place] [facility] [address] [facility] [id number], [place] [address] Jul, [facility] [place] [facility] [address] [id number], [place] [address] Jul, [facility] [place] [facility] [address] [id number] [place] [address] Jul, [facility] [place] [facility] [address] [facility] [id number] [place] [address] 24 Jun, 2011 [facility] [place] [facility] [address] [facility] [id number] [place] [address] Jun, [facility] [place] [facility] [id number], [place] [address] Dec, [facility] [id number], [place] [address] Aug, [facility] [id number], [place] [address] Aug, [facility] [id number], [place] [address] Jul, [facility] [id number], [place] [address] Jul, [facility] [id number] [place] [address] Jul, [facility] [id number], [place] [address] Jun, [facility] [id number] [place] [address] Jun, [facility] [id number], [place] [address] Jun, [facility] [id number], [place] [address] May, [facility] [id number], [place] [address] Feb, [facility] [id number], [place] [address] January, IMMUNIZATIONS No Known Immunizations SOCIAL HISTORY Never Assessed REASON FOR VISIT phone call/RX--tramadol PLAN OF CARE VITAL SIGNS MEDICATIONS Medication Instructions Dosage Frequency Start Date End Date Duration Status Tramadol HCl 50 mg Orally 2 times a day 1 tablet as needed 12h Oct, Active RESULTS No Results PROCEDURES No Known [...]
--- OUTSIDE RECORDS SUMMARY | 2019-04-25 17:10 | XMS REPORT ---
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 [facility] [address] [id number] [place] [address] Jul, [facility] [place] [facility] [address] [address] 09 Jul, 2011 [facility] [address] [address] 24 Jun, 2011 [facility] [address] [address] Jun, [facility] [id number] [place] [address] Dec, [facility] [address] [facility] [id number], [place] [address] Aug, [facility] [id number] [place] [address] Aug, [facility] [address] [address] Jul, [facility] [id number] [place] [address] Jul, [facility] [address] [address] Jul, [facility] [address] [address] Jun, [facility] [address] [address] Jun, [facility] [address] [address] Jun, [facility] [address] [address] May, [facility] [address] [place] [address] Feb, [facility] [address] [address] January, IMMUNIZATIONS No Known Immunizations SOCIAL HISTORY Never Assessed REASON FOR VISIT Controlled Med Refill PLAN OF CARE VITAL SIGNS MEDICATIONS Medication Instructions Dosage Frequency Start Date End Date Duration Status Tramadol HCl 50 mg Orally 2 times a day 1 tablet as needed 12h 28 Oct, 2017 Active RESULTS No Results PROCEDURES No Known [...]
--- OUTSIDE RECORDS SUMMARY | 2019-04-25 17:11 | XMS REPORT ---
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 as needed for SOB 6h Jul, Active Lisinopril 20 MG 20 MG PO DAILY Active Metoprolol Tartrate 50 mg Orally Twice a day 1 tablet with food 12h Jun, 30 day(s) Active NovoLog Flexpen 100 UNIT/ML Subcutaneous 3 times a day ac meals 5 units 30 days Active Lactulose 10 GM/15ML Orally twice a day 15 ml 12h Jun, 90 days Active Omeprazole 20 TAKE 1 CAPSULE BY MOUTH DAILY 30 Active Atorvastatin Calcium 20 mg Orally Once a day 1 tablet 24h 30 Active Albuterol Sulfate (2.5 MG/3ML) 0.083% Inhalation every 4 hrs 3 ml as needed 4h Sep, 30 days Active Albuterol Sulfate HFA 108 (90 Base) MCG/ACT Inhalation every 6 hrs 2 puffs as needed 6h Sep, Not-Taking Nebulizer - as directed Sep, lifetime Active BD Pen Needle Short U/F 31G X 8 MM SQ 5 times a day as directed May, Active Levemir FlexTouch 100 UNIT/ML Subcutaneous at bedtime 30 units 30 days Active PredniSONE 20 mg Orally Once a day 1 tablet 24h Oct, Oct, 05 days Active Ondansetron 4 MG Orally every 8 hrs as needed 1 tablet on the tongue and allow to dissolve 30 days Not-Taking RESULTS No Results PROCEDURES Procedure Date Ordered Result Body Site [facility] Nov 20, 2017 X-RAY EXAM CHEST 2 VIEWS Nov 20, 2017 [facility] VISIT ESTABLISHED PATIENT Nov 20, 2017 VENIPUNCT, ROUTINE* Nov 20, 2017 INSTRUCTIONS MEDICATIONS ADMINISTERED No Known Medications [...]
--- OUTSIDE RECORDS SUMMARY | 2019-04-25 17:12 | XMS REPORT ---
Author Author RONALD KELLEY Organization [facility] Address [address] [place] [address] Care Team Providers Care Manager [employer] Name Role Phone RONALD KELLEY Unavailable PROBLEMS Type Condition ICD9-CM Code LTY49-AL Code Onset Dates Condition Status SNOMED Code Problem Hyperlipidemia, mixed E78.2 Active 981989067 Problem Depression, unspecified depression type F32.9 Active 96676448 Problem Neuropathy, diabetic E11.40 Active 219793191 Problem Mood disorder F39 Active 35296148 Problem Primary insomnia F51.01 Active 045861883 Problem Hypertension, benign I10 Active 48752135 Problem Edema, unspecified type R60.9 Active 287611652 Problem Diabetes E11.9 Active 192156526 Problem Cirrhosis of liver without ascites, unspecified hepatic cirrhosis type K74.60 Active 66464785 Problem Type 2 diabetes mellitus without complications E11.9 Active 122528216 Problem Precordial pain R07.2 Active 83350186 Problem Chronic obstructive pulmonary disease, unspecified COPD type J44.9 Active 83989244 ALLERGIES No Information ENCOUNTERS Encounter Location Date Diagnosis [facility] [id number] [place] [address] Mar, [facility] [id number] [place] [address] 14 Feb, 2018 Cirrhosis of liver without ascites, unspecified hepatic cirrhosis type K74.60 and Edema, unspecified type R60.9 [facility] [id number] [place] [address] Feb, [facility] [id number] [place] [address] January, [facility] [id number] [place] [address] January, Diabetes E11.9 [place] [address] [address] January, Diabetes E11.9 [facility] [address] [address] Dec, Diabetes E11.9 ; Mood disorder F39 ; Hyperlipidemia, mixed E78.2 ; Precordial pain R07.2 ; Type 2 diabetes mellitus with hyperglycemia E11.65 and skilled nursing current use of insulin Z79.4 [facility] [address] [address] Dec, [facility] [id number] [place] [address] Nov, [facility] [id number] [place] [address] Nov, Cirrhosis of liver without ascites, unspecified hepatic cirrhosis type K74.60 ; Type 2 diabetes mellitus without complications E11.9 ; Precordial pain R07.2 and BMI 40.0-44.9, adult Z68.41 [facility] [address] [address] Nov, Cirrhosis of liver without ascites, unspecified hepatic cirrhosis type K74.60 [facility] [address], [place] [address] Oct, [facility] [address] [address] Oct, Cirrhosis of liver without ascites, unspecified hepatic cirrhosis type K74.60 ; Chronic obstructive pulmonary disease, unspecified COPD type J44.9 and Influenza-like illness R69 [facility] [facility] [address], [place] [address] Oct, [facility] [address] [address] Oct, [facility] [id number] [place] [address] Oct, Cirrhosis of liver without ascites, unspecified hepatic cirrhosis type K74.60 [facility] [address], [place] [address] Sep, [facility] [address], [place] [address] Sep, Chronic obstructive pulmonary disease, unspecified COPD type J44.9 [facility] [id number] [place] [address] Sep, Cirrhosis of liver without ascites, unspecified hepatic cirrhosis type K74.60 and Chronic obstructive pulmonary disease, unspecified COPD type J44.9 [facility] [id number] [place] [address] Aug, [facility] [address] [place] [address] Aug, Cirrhosis of liver without ascites, unspecified hepatic cirrhosis type K74.60 [facility] [address] [address] Aug, [facility] [id number] [place] [address] Aug, [facility] [address], [place] [address] Jul, [facility] [address] [place] [address] Jul, Diabetes E11.9 and Viral gastroenteritis A08.4 [facility] [address] [place] [address] Jul, Cirrhosis of liver without ascites, unspecified hepatic cirrhosis type K74.60 and Chronic obstructive pulmonary disease, unspecified COPD type J44.9 [facility] [address] [address] Jul, [facility] [id number] [place] [address] Jul, Cirrhosis of liver without ascites, unspecified hepatic cirrhosis type K74.60 [facility] [address] [place] [address] Jul, [facility] [id number] [place] [address] Jul, [facility] [id number] [place] [address] Jun, Cirrhosis of liver without ascites, unspecified hepatic cirrhosis type K74.60 and Viral gastroenteritis A08.4 [facility] [address] [place] [address] Jun, Nausea and vomiting, intractability of vomiting not specified, unspecified vomiting type R11.2 ; Acute nonintractable headache, unspecified headache type R51 and History of encephalopathy Z86.69 [facility] [id number] [place] [address] Jun, [facility] [id number] [place] [address] Jun, Neuropathy, diabetic E11.40 and Hypertension, benign I10 [facility] [id number] [place] [address] Jun, [facility] [address] [place] [address] Jun, [facility] [id number] [place] [id number] Jun, [facility] [id number] [place] [address] Jun, [facility] [id number] [place] [address] Jun, [facility] [address] [place] [address] Jun, Viral gastroenteritis A08.4 and Diabetes E11.9 [facility] [id number] [place] [address] May, Lumbago with sciatica, left side M54.42 [facility] [id number] [place] [address] May, Lumbago with sciatica, left side M54.42 [facility] [id number] [place] [address] May, [facility] [id number] [place] [address] May, [facility] [id number] [place] [address] Apr, Lumbago with sciatica, left side M54.42 ; Neuropathy, diabetic E11.40 and Mood disorder F39 [facility] [id number] [place] [address] Apr, [facility] [id number] [place] [address] Apr, [facility] [id number] [place] [address] Mar, Other chronic pain G89.29 and Type 2 diabetes mellitus without complications E11.9 [facility] [address], [place] [address] Mar, Other chronic pain G89.29 [facility] [id number] [place] [address] Feb, Other chronic pain G89.29 [facility] [id number] [place] [address] January, Shoulder pain, left M25.512 and Other chronic pain G89.29 [facility] [id number] [place] [address] January, [facility] [id number] [place] [address] January, 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 [facility] [address], [place] [address] January, Diabetes E11.9 [facility] [address], [place] [address] January, Diabetes E11.9 ; Chronic pain disorder G89.4 ; Lumbago with sciatica, left side M54.42 and Other acute postprocedural pain G89.18 [facility] [address] [address] Dec, 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 [facility] [id number] [place] [address] Nov, 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 [facility] [id number] [place] [address] Nov, 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 [facility] [address], [place] [address] Oct, Diabetes E11.9 [facility] [id number] [place] [address] Oct, Diabetes E11.9 ; Neuropathy, diabetic E11.40 and 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 [facility] [address], [place] [address] Sep, [facility] [address], [place] [address] Aug, Diabetes type 2, controlled E11.9 [facility] [address] [place] [address] Aug, Diabetic mononeuropathy associated with type 2 diabetes mellitus E11.41 [facility] [address], [place] [address] Jul, [facility] [id number] [place] [address] Jul, Primary insomnia F51.01 [facility] [id number] [place] [address] Jun, [facility] [id number] [place] [address] Jun, Diabetes E11.9 ; Primary insomnia F51.01 and Depression, unspecified depression type F32.9 [facility] [id number] [place] [address] Jun, [facility] [id number] [place] [address] Jun, [facility] [id number] [place] [address] May, [facility] [id number] [place] [address] May, Mood disorder F39 [facility] [id number] [place] [address] Apr, [facility] [id number] [place] [address] Mar, Acute cystitis without hematuria N30.00 [facility] [id number] [place] [address] Feb, Diabetes E11.9 [facility] [id number] [place] [address] January, [facility] [id number] [place] [address] January, [facility] [id number] [place] [address] January, Acute cystitis without hematuria N30.00 ; 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 ; Fatigue, unspecified type R53.83 and Weight loss, abnormal R63.4 [facility] [id number] [place] [address] January, [facility] [address], [place] [address] Dec, [facility] [address] [place] [address] Nov, [facility] [id number] [place] [address] Nov, Neuropathy, diabetic E11.40 [facility] [id number] [place] [address] Oct, Neuropathy, diabetic E11.40 [facility] [id number] [place] [address] Oct, [facility] [id number] [place] [address] Oct, [facility] [id number] [place] [address] Oct, [facility] [address], [place] [address] Aug, [facility] [facility] [id number] [place] [address] Aug, Type 2 diabetes mellitus with foot ulcer E11.621 ; Nausea R11.0 ; Other complications following infusion, transfusion and therapeutic injection, initial encounter T80.89XA ; Hyperlipidemia, mixed E78.2 and Nail ingrowing L60.0 [place] [facility] [address], [place] [address] Jul, [facility] [id number] [place] [address] Jul, Diabetes E11.9 [place] [address], [place] [address] Jul, Type 2 diabetes mellitus with foot ulcer E11.621 and Non-pressure chronic ulcer of other part of left foot with unspecified severity L97.529 [facility] [id number] [place] [address] Jun, Diabetes E11.9 ; Shoulder pain, left M25.512 ; Abdominal pain, lower R10.30 ; Hepatitis C, chronic B18.2 and Diabetes mellitus without mention of complication, type II or unspecified type, not stated as uncontrolled 250.00 [place] [address] [address] Jun, Cellulitis, abdominal wall L03.311 and Nocturnal hypoxemia G47.34 [facility] [id number] [place] [address] Jun, Diabetes mellitus without mention of complication, type II or unspecified type, not stated as uncontrolled 250.00 [place] [address] [address] May, Diabetes mellitus without mention of complication, type II or unspecified type, not stated as uncontrolled 250.00 [place] [id number] [place] [address] May, Abdominal pain 789.00 [place] [address] [address] May, [place] [facility] [id number] [place] [address] May, [place] [id number] [place] [address] May, Diabetes mellitus without mention of complication, type II or unspecified type, not stated as uncontrolled 250.00 [place] [id number] [place] [address] Apr, [place] [place] [id number] [place] [address] Mar, [facility] [id number] [place] [address] Mar, Diabetes mellitus without mention of complication, type II or unspecified type, not stated as uncontrolled 250.00 [facility] [address] [facility] [id number] [address] Feb, Diabetes mellitus without mention of complication, type II or unspecified type, not stated as uncontrolled 250.00 and Chronic pain 338.29 [facility] [id number], [place] [address] Feb, [facility] [address], [place] [address] January, Diabetes mellitus without mention of complication, type II or unspecified type, not stated as uncontrolled 250.00 and Chronic pain 338.29 [facility] [address], [place] [address] January, [facility] [address], [place] [address] Dec, [facility] [address], [place] [address] Dec, [facility] [address], [place] [address] Oct, [facility] [address], [place] [address] Oct, [facility] [address], [place] [address] Oct, [facility] [address], [place] [address] Oct, [facility] [id number], [place] [address] Oct, [facility] [address], [place] [address] Oct, [facility] [id number] [address] Oct, [facility] [address] [place] [address] Oct, 2014 [facility] [place] [facility] [address] [id number] [place] [address] Oct, 2014 [facility] [place] [facility] [address] [id number] [place] [address] Oct, 2014 [facility] [place] [facility] [address] [id number] [place] [address] Oct, 2014 [facility] [place] [facility] [address] [id number] [place] [address] Oct, 2014 [facility] [place] [facility] [address] [id number] [place] [address] Sep, [facility] [place] [facility] [address] [id number] [place] [address] Sep, [facility] [place] [facility] [address] [facility] [id number] [place] [address] Aug, [facility] [place] [facility] [address] [id number] [place] [address] Aug, [facility] [place] [facility] [address] [id number] [place] [address] Aug, [facility] [place] [facility] [address] [facility] [id number] [place] [address] Aug, [facility] [place] [facility] [address] [facility] [id number] [place] [address] Aug, [facility] [place] [facility] [address] [id number] [place] [address] Aug, [facility] [place] [facility] [address] [id number] [place] [address] Aug, [facility] [place] [facility] [address] [id number] [place] [address] Aug, [facility] [place] [facility] [address] [id number] [place] [address] Aug, [facility] [place] [facility] [address] [id number] [place] [address] Aug, [facility] [place] [facility] [address] [id number] [place] [address] Jul, [facility] [place] [facility] [address] [id number] [place] [address] Jul, [facility] [place] [facility] [address] [id number] [place] [address] Jun, [facility] [place] [facility] [address] [id number] [place] [address] Jun, [facility] [place] [facility] [address] [id number] [place] [address] Jun, [facility] [place] [facility] [address] [id number] [place] [address] Jun, [facility] [place] [facility] [address] [id number] [place] [address] Jun, [facility] [place] [facility] [address] [id number] [place] [address] Jun, [facility] [place] [facility] [address] [id number] [place] [address] Jun, [facility] [place] [facility] [address] [id number] [address] 30 May, 2014 [facility] [place] [facility] [address] [id number], [place] [address] 30 May, 2013 [facility] [place] [facility] [address] [id number] [place] [address] 30 May, 2014 [facility] [place] [facility] [address] [id number] [place] [address] 30 May, 2013 [facility] [place] [facility] [address] [id number] [place] [address] 26 May, 2014 [facility] [place] [facility] [address] [id number] [place] [address] May, 2013 [facility] [place] [facility] [address] [id number] [place] [address] May, 2013 [facility] [place] [facility] [address] [id number] [place] [address] May, 2013 [facility] [place] [facility] [address] [id number] [place] [address] 24 May, 2013 [facility] [place] [facility] [address] [id number] [place] [address] May, 2013 [facility] [place] [facility] [address] [id number] [place] [address] May, 2013 [facility] [place] [facility] [address] [id number] [place] [address] May, 2013 [facility] [place] [facility] [address] [id number] [place] [address] May, 2013 [facility] [place] [facility] [address] [id number] [place] [address] Mar, [facility] [place] [facility] [address] [id number] [place] [address] Mar, [facility] [place] [facility] [address] [id number] [place] [address] Mar, [facility] [place] [facility] [address] [id number] [place] [address] Mar, [facility] [place] [facility] [address] [id number] [place] [address] Mar, [facility] [place] [facility] [address] [id number] [place] [address] Mar, [facility] [place] [facility] [address] [id number] [place] [address] Feb, [facility] [place] [facility] [address] [id number] [place] [address] Feb, [facility] [place] [facility] [address] [id number] [place] [address] Feb, [facility] [place] [facility] [address] [id number] [place] [address] Feb, [facility] [place] [facility] [address] [id number] [place] [address] Feb, [facility] [place] [facility] [address] [id number] [place] [address] Feb, [facility] [place] [facility] [address] [id number] [place] [address] Feb, [facility] [place] [facility] [address] [id number] [place] [address] Feb, [facility] [place] [facility] [address] [id number] [place] [address] Feb, [facility] [place] [facility] [address] [id number] [place] [address] January, [facility] [place] [facility] [address] [id number] [place] [address] January, [facility] [place] [facility] [address] [id number] [place] [address] Dec, [facility] [place] [facility] [address] [id number] [place] [address] Dec, [facility] [place] [facility] [address] [id number] [place] [address] Dec, [facility] [place] [facility] [address] [id number] [place] [address] Dec, [facility] [place] [facility] [address] [id number] [place] [address] Nov, [facility] [place] [facility] [address] [id number] [place] [address] Nov, [facility] [place] [facility] [address] [id number] [place] [address] Nov, [facility] [place] [facility] [address] [id number] [place] [address] Nov, [facility] [place] [facility] [address] [id number] [place] [address] Nov, [facility] [place] [facility] [address] [id number] [place] [address] Nov, [facility] [place] [facility] [address] [id number] [place] [address] Nov, [facility] [place] [facility] [address] [id number] [place] [address] Nov, [facility] [place] [facility] [address] [id number] [place] [address] Nov, [facility] [place] [facility] [address] [id number] [place] [address] Nov, [facility] [place] [facility] [address] [id number] [place] [address] Oct, [facility] [place] [facility] [address] [id number] [place] [address] Oct, [facility] [place] [facility] [address] [id number] [place] [address] Sep, [facility] [place] [facility] [address] [id number] [place] [address] Sep, [facility] [place] [facility] [address] [id number] [place] [address] Sep, [facility] [place] [facility] [address] [id number] [place] [address] Aug, [facility] [place] [facility] [address] [id number] [place] [address] Aug, [facility] [place] [facility] [address] [id number] [place] [address] Aug, [facility] [place] [facility] [address] [id number] [place] [address] Aug, [facility] [place] [facility] [address] [id number] [place] [address] Jul, [facility] [place] [facility] [address] [id number] [place] [address] Jul, [facility] [place] [facility] [address] [id number] [place] [address] Jul, [facility] [place] [facility] [address] [id number] [place] [address] Jul, [facility] [place] [facility] [address] [id number] [place] [address] Jun, [facility] [place] [facility] [address] [id number] [place] [address] Jun, [facility] [place] [facility] [address] [id number] [place] [address] Jun, [facility] [place] [facility] [address] [id number] [place] [address] Jun, [facility] [place] [facility] [address] [id number] [place] [address] Jun, [facility] [place] [facility] [address] [id number] [place] [address] Jun, [facility] [place] [facility] [address] [id number] [place] [address] Jun, [facility] [place] [facility] [address] [id number] [place] [address] Jun, [facility] [place] [facility] [address] [id number] [place] [address] May, [facility] [place] [facility] [address] [id number] [place] [address] Apr, [facility] [place] [facility] [address] [id number] [place] [address] Mar, [facility] [address] [id number] [place] [address] Mar, [facility] [place] [facility] [address] [id number] [place] [address] Feb, [facility] [place] [facility] [address] [id number] [place] [address] Feb, [facility] [place] [facility] [address] [id number] [place] [address] Feb, [facility] [place] [facility] [address] [id number] [place] [address] 24 Dec, 2012 [facility] [place] [facility] [address] [id number] [place] [address] Dec, [facility] [place] [facility] [address] [id number] [place] [address] Dec, [facility] [place] [facility] [address] [id number] [place] [address] Nov, [facility] [place] [facility] [address] [id number] [place] [address] Oct, [facility] [place] [facility] [address] [id number] [place] [address] Oct, [facility] [place] [facility] [address] [id number] [place] [address] Oct, [facility] [place] [facility] [address] [id number] [place] [address] 08 Oct, 2012 [facility] [place] [facility] [address] [id number] [place] [address] Sep, [facility] [place] [facility] [address] [id number] [place] [address] Sep, [facility] [place] [facility] [address] [id number] [place] [address] Aug, [facility] [place] [facility] [address] [id number] [place] [address] 31 Aug, 2012 [facility] [address] [id number] [place] [address] 26 Aug, 2012 [facility] [place] [facility] [address] [id number] [place] [address] 26 Aug, 2012 [facility] [address] [id number] [place] [address] Aug, [facility] [address] [id number] [place] [address] Aug, [facility] [address] [id number] [place] [address] 18 Aug, 2012 [facility] [address] [id number] [place] [address] 18 Aug, 2012 [facility] [address] [id number] [place] [address] 14 Aug, 2012 [facility] [address] [id number] [place] [address] 14 Aug, 2012 [facility] [address] [id number] [place] [address] 10 Aug, 2012 [facility] [address] [id number] [place] [address] 10 Aug, 2012 [facility] [place] [facility] [address] [id number] [place] [address] 30 Jul, 2012 [facility] [place] [facility] [address] [id number] [place] [address] 30 Jul, 2012 [facility] [place] [facility] [address] [id number] [place] [address] Jul, [facility] [place] [facility] [address] [id number] [place] [address] Jul, [facility] [place] [facility] [address] [id number] [place] [address] Jul, [facility] [place] [facility] [address] [id number] [place] [address] Jul, [facility] [place] [facility] [address] [id number] [place] [address] Jul, [facility] [place] [facility] [address] [id number] [place] [address] Jul, [facility] [place] [facility] [address] [id number] [place] [address] Jul, [facility] [place] [facility] [address] [id number] [place] [address] Jul, [facility] [place] [facility] [address] [id number] [place] [address] Jun, [facility] [place] [facility] [address] [id number] [place] [address] Jun, [facility] [place] [facility] [address] [id number] [place] [address] Jun, [facility] [place] [facility] [address] [id number] [place] [address] Jun, [facility] [place] [facility] [address] [id number] [place] [address] Apr, [facility] [place] [facility] [address] [id number] [place] [address] Mar, [facility] [place] [facility] [address] [id number], [place] [address] Mar, [facility] [place] [facility] [address] [id number] [place] [address] Mar, [facility] [place] [facility] [address] [id number] [place] [address] Mar, [facility] [place] [facility] [address] [id number], [place] [address] Mar, [facility] [place] [facility] [address] [id number], [place] [address] Feb, [facility] [place] [facility] [address] [id number] [place] [address] Feb, [facility] [place] [facility] [address] [id number] [place] [address] January, [facility] [place] [facility] [address] [facility] [id number] [place] [address] January, [facility] [place] [facility] [address] [id number] [place] [address] Nov, [facility] [place] [facility] [address] [id number] [place] [address] Nov, [facility] [place] [facility] [address] [id number] [place] [address] Nov, [facility] [place] [facility] [address] [facility] [id number] [place] [address] Nov, [facility] [place] [facility] [address] [facility] [id number] [place] [address] Nov, [facility] [place] [facility] [address] [facility] [id number] [place] [address] Oct, [facility] [place] [facility] [address] [facility] [id number] [place] [address] Jul, [facility] [place] [facility] [address] [id number], [place] [address] Jul, [facility] [place] [facility] [address] [facility] [id number] [place] [address] Jul, [facility] [place] [facility] [address] [id number] [place] [address] Jun, [facility] [place] [facility] [address] [facility] [id number] [place] [address] Jun, [facility] [place] [facility] [address] [facility] [id number] [place] [address] Dec, [facility] [place] [facility] [address] [id number], [place] [address] Aug, [facility] [address], [place] [address] Aug, [facility] [address], [place] [address] Jul, [facility] [address], [place] [address] Jul, [facility] [address], [place] [address] Jul, [facility] [address], [place] [address] Jun, [facility] [address], [place] [address] Jun, [facility] [address], [place] [address] Jun, [facility] [address], [place] [address] May, [facility] [address], [place] [address] Feb, [facility] [address] [id number] [address] January, IMMUNIZATIONS No Known Immunizations SOCIAL HISTORY [...]
--- OUTSIDE RECORDS SUMMARY | 2019-04-25 17:12 | XMS REPORT ---
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 [facility] [place] [facility] [address] [id number] [place] [address] Nov, [facility] [place] [facility] [address] [id number] [place] [address] Nov, [facility] [place] [facility] [address] [id number] [place] [address] Oct, [facility] [place] [facility] [address] [id number] [place] [address] Jul, [facility] [place] [facility] [address] [id number] [place] [address] Jul, [facility] [place] [facility] [address] [id number] [place] [address] Jul, [facility] [address] [id number], [place] [address] Jun, [facility] [address] [facility] [id number], [place] [address] Jun, [facility] [id number], [place] [address] Dec, [facility] [address] [facility] [id number], [place] [address] Aug, [facility] [address] [id number], [place] [address] Aug, [facility] [id number] [place] [address] Jul, [facility] [id number], [place] [address] Jul, [facility] [id number], [place] [address] Jul, [facility] [id number], [place] [address] Jun, [facility] [id number], [place] [address] Jun, [facility] [id number], [place] [address] Jun, [facility] [id number], [place] [address] May, [facility] [address], [place] [address] Feb, [facility] [id number], [place] [address] January, IMMUNIZATIONS No Known Immunizations SOCIAL HISTORY Never Assessed REASON FOR VISIT Medication Refill PLAN OF CARE VITAL SIGNS MEDICATIONS Medication Instructions Dosage Frequency Start Date End Date Duration Status Lactulose 10 GM/15ML Orally twice a day 15 ml 12h 31 Jun, 2017 90 days Active RESULTS No Results PROCEDURES No [...]
--- OUTSIDE RECORDS SUMMARY | 2019-04-25 17:13 | XMS REPORT ---
Author Author MYRON LOCO Organization [facility] Address [address] [place] [address] Care Team Providers Care Combination Building Inspector Name Role Phone MYRON LOCO Unavailable PROBLEMS Type Condition ICD9-CM Code [id number] Code Onset Dates Condition Status SNOMED Code Problem Diabetes E11.9 Active 301570722 Problem Diabetic mononeuropathy associated with type 2 diabetes mellitus E11.41 Active 189838954 Problem Depression, unspecified depression type F32.9 Active 23299832 Problem Cirrhosis of liver without ascites, unspecified hepatic cirrhosis type K74.60 Active 95647541 Problem Type 2 diabetes mellitus without complications E11.9 Active 655242800 Problem Lumbago with sciatica, left side M54.42 Active 248109768 Problem 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 Active 606413676 Problem Other chronic pain G89.29 Active 23404183 Problem Chronic pain disorder G89.4 Active 988382457 Problem Renal insufficiency N28.9 Active 490214250 Problem Alcoholic cirrhosis of liver without ascites K70.30 Active 553610658 Problem Mood disorder F39 Active 45879469 Problem History of alcohol dependence F10.21 Active 546021024 Problem Hypertension, benign I10 Active 91809025 Problem Primary insomnia F51.01 Active 377691338 Problem Hyperlipidemia, mixed E78.2 Active 129206963 Problem Spinal arthritis M46.90 Active 427911467 Problem Neuropathy, diabetic E11.40 Active 590610446 ALLERGIES No Information SOCIAL HISTORY Never Assessed PLAN OF CARE VITAL SIGNS MEDICATIONS Unknown Medications RESULTS No Results PROCEDURES No Known procedures IMMUNIZATIONS No Known Immunizations MEDICAL (GENERAL) HISTORY Type Description Date Medical History type II diabetes Medical History hypertension Medical History hyperlipidemia Medical History gastroesophageal reflux disease (GERD) Medical History Arthritis Medical History dementia Medical History mood disorder Medical History insomnia Medical History headache Medical History Insomnia, unspecified Medical History Allergic rhinitis, cause unspecified Medical History Unspecified episodic mood disorder Medical History Other and unspecified hyperlipidemia Medical History Senile dementia, uncomplicated Medical History Carpal tunnel syndrome Medical History cirrhosis per CT 05/2015 Surgical History liver bx unknown hx Surgical History umbilical hernia Hospitalization History surgery Hospitalization History altered mental status, abd pain, cirrhosis, [facility]tn-[facility] 07/07/17
--- OUTSIDE RECORDS SUMMARY | 2019-04-25 17:13 | XMS REPORT ---
Author Author MYRON LOCO [facility] Address [address] [place] [address] Care Team Providers Care Skin Therapist Name Role Phone MYRON LOCO Unavailable PROBLEMS Type Condition ICD9-CM Code [id number] Code Onset Dates Condition Status SNOMED Code Problem Neuropathy, diabetic E11.40 Active 617612703 Problem Depression, unspecified depression type F32.9 Active 74555935 Problem Diabetes E11.9 Active 316784391 Problem Type 2 diabetes mellitus without complications E11.9 Active 177343544 Problem Other chronic pain G89.29 Active 05394731 Problem 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 Active 677094673 Problem Diabetic mononeuropathy associated with type 2 diabetes mellitus E11.41 Active 972289534 Problem Chronic pain disorder G89.4 Active 009139316 Problem Lumbago with sciatica, left side M54.42 Active 308313011 Problem Mood disorder F39 Active 07832867 Problem Renal insufficiency N28.9 Active 048421975 Problem Spinal arthritis M46.90 Active 004423792 Problem History of alcohol dependence F10.21 Active 259060035 Problem Alcoholic cirrhosis of liver without ascites K70.30 Active 670034351 Problem Hypertension, benign I10 Active 26352409 Problem Primary insomnia F51.01 Active 803296026 Problem Hyperlipidemia, mixed E78.2 Active 561465965 ALLERGIES Substance Reaction Event Type Date Status Tylenol liver problems Drug Allergy January, Active Aspirin liver problems Drug Allergy January, Active SOCIAL HISTORY Never Assessed PLAN OF CARE VITAL SIGNS Height 69 in 2017-02-07 Weight 222.1 lbs 2017-02-07 Temperature 98.8 degrees Fahrenheit 2017-02-07 Heart Rate 64 bpm 2017-02-07 Respiratory Rate 18 2017-02-07 BMI 32.79 kg/m2 2017-02-07 Blood pressure systolic 105 mmHg 2017-02-07 Blood pressure diastolic 57 mmHg 2017-02-07 MEDICATIONS Medication Instructions Dosage Frequency Start Date End Date Duration Status Atorvastatin Calcium 20 mg Orally Once a day 1 tablet 24h 30 Active Ativan 1 MG Orally Once a day, at night 1 tablet as needed May, Active BD U/F Short Pen Needle 31G X 8 MM SQ 5 times a day as directed May, Active NovoLog Flexpen 100 UNIT/ML Subcutaneous 3 times a day ac meals 40 units Active Viagra 100 mg Orally Once a day 1 tablet as needed 24h 02 Oct, 2016 Active Baclofen 20 mg Orally 2 times a day 1 tablet with food or milk 12h January, Mar, 30 day(s) Active Levemir FlexTouch 100 UNIT/ML Subcutaneous twice a day 60 units 12h daily Active Fluoxetine HCl 20 mg 1 capsule in the morning 24h 30 Active Omeprazole 20 mg 1 capsule 24h Active MS Contin 30 MG Orally every 12 hrs 1 tablet 12h Dec, 28 days Active RESULTS Name Result Date Reference Range A1C (IN HOUSE) 2017-02-07 A1C IN HOUSE 6.7 4.3 - 5.6 % Previous A1c 6.6 Lot [id number] Exp date PROCEDURES Procedure Date Ordered Result Body Site No Charge February 07, 2017 MICROALBUMIN, SEMIQUANT February 07, 2017 [facility] VISIT ESTABLISHED PATIENT February 07, 2017 GLYCATED HEMOGLOBIN TEST February 07, 2017 IMMUNIZATIONS No Known Immunizations MEDICAL (GENERAL) HISTORY [...]
--- OUTSIDE RECORDS SUMMARY | 2019-04-25 17:13 | XMS REPORT ---
Author Author MYRON LOCO [facility] Address [address] [place] [address] Care Team Providers Care Visual Journalist Name Role Phone MYRON LOCO Unavailable PROBLEMS Type Condition ICD9-CM Code [id number] Code Onset Dates Condition Status SNOMED Code Problem Diabetes E11.9 Active 375570734 Problem Diabetic mononeuropathy associated with type 2 diabetes mellitus E11.41 Active 159241227 Problem Depression, unspecified depression type F32.9 Active 61840498 Problem Cirrhosis of liver without ascites, unspecified hepatic cirrhosis type K74.60 Active 81572312 Problem Type 2 diabetes mellitus without complications E11.9 Active 329705266 Problem Lumbago with sciatica, left side M54.42 Active 392127917 Problem 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 Active 702252666 Problem Other chronic pain G89.29 Active 50535225 Problem Chronic pain disorder G89.4 Active 346673930 Problem Renal insufficiency N28.9 Active 346040779 Problem Alcoholic cirrhosis of liver without ascites K70.30 Active 792825981 Problem Mood disorder F39 Active 75993423 Problem History of alcohol dependence F10.21 Active 148127158 Problem Hypertension, benign I10 Active 95125460 Problem Primary insomnia F51.01 Active 118073755 Problem Hyperlipidemia, mixed E78.2 Active 769160813 Problem Spinal arthritis M46.90 Active 453158853 Problem Neuropathy, diabetic E11.40 Active 107975861 ALLERGIES No Information SOCIAL HISTORY Never Assessed PLAN OF CARE VITAL SIGNS MEDICATIONS Medication Instructions Dosage Frequency Start Date End Date Duration Status MS Contin 30 MG Orally every 12 hrs 1 tablet 12h January, 28 days Active RESULTS No Results PROCEDURES No [...]
--- OUTSIDE RECORDS SUMMARY | 2019-04-25 17:14 | XMS REPORT ---
Author Author RONALD KELLEY Organization [facility] Address [address] 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 Name Role Phone RONALD KELLEY Unavailable PROBLEMS Type Condition ICD9-CM Code OXD38-NC Code Onset Dates Condition Status SNOMED Code Problem Hyperlipidemia, mixed E78.2 Active 738668855 Problem Depression, unspecified depression type F32.9 Active 27806076 Problem Neuropathy, diabetic E11.40 Active 992043306 Problem Mood disorder F39 Active 44502894 Problem Primary insomnia F51.01 Active 825527850 Problem Hypertension, benign I10 Active 35593441 Problem Edema, unspecified type R60.9 Active 364411071 Problem Diabetes E11.9 Active 015526419 Problem Cirrhosis of liver without ascites, unspecified hepatic cirrhosis type K74.60 Active 76580793 Problem Type 2 diabetes mellitus without complications E11.9 Active 480153027 Problem Precordial pain R07.2 Active 28594586 Problem Chronic obstructive pulmonary disease, unspecified COPD type J44.9 Active 63707082 ALLERGIES Substance Reaction Event Type Date Status Tylenol liver problems Drug Allergy Sep, Active Aspirin liver problems Drug Allergy Sep, Active ENCOUNTERS Encounter Location Date Diagnosis [facility] [id number] [address] Mar, [facility] [address] [address] Feb, Cirrhosis of liver without ascites, unspecified hepatic cirrhosis type K74.60 and Edema, unspecified type R60.9 [facility] [id number] [address] Feb, [facility] [id number] [address] January, [facility] [id number] [address] January, Diabetes E11.9 [facility] [facility] [id number] [place] [address] January, Diabetes E11.9 [place] [id number] [place] [address] Dec, Diabetes E11.9 ; Mood disorder F39 ; Hyperlipidemia, mixed E78.2 ; Precordial pain R07.2 ; Type 2 diabetes mellitus with hyperglycemia E11.65 and 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 [place] [id number] [place] [address] Dec, [place] [id number] [place] [address] Nov, [place] [id number] [place] [address] Nov, Cirrhosis of liver without ascites, unspecified hepatic cirrhosis type K74.60 ; Type 2 diabetes mellitus without complications E11.9 ; Precordial pain R07.2 and BMI 40.0-44.9, adult Z68.41 [place] [id number] [place] [address] Nov, Cirrhosis of liver without ascites, unspecified hepatic cirrhosis type K74.60 [place] [id number] [place] [address] Oct, [place] [id number] [place] [address] Oct, Cirrhosis of liver without ascites, unspecified hepatic cirrhosis type K74.60 ; Chronic obstructive pulmonary disease, unspecified COPD type J44.9 and Influenza-like illness R69 [place] [id number] [place] [address] Oct, [place] [id number] [place] [address] Oct, [facility] [address] [address] Oct, Cirrhosis of liver without ascites, unspecified hepatic cirrhosis type K74.60 [facility] [address] [address] Sep, [facility] [address] [address] Sep, Chronic obstructive pulmonary disease, unspecified COPD type J44.9 [facility] [id number] [place] [address] Sep, Cirrhosis of liver without ascites, unspecified hepatic cirrhosis type K74.60 and Chronic obstructive pulmonary disease, unspecified COPD type J44.9 [facility] [address] [address] Aug, [facility] [id number] [place] [address] Aug, Cirrhosis of liver without ascites, unspecified hepatic cirrhosis type K74.60 [facility] [address] [address] Aug, [facility] [address] [address] Aug, [facility] [address] [address] Jul, [facility] [id number] [place] [address] Jul, Diabetes E11.9 and Viral gastroenteritis A08.4 [facility] [id number] [place] [address] Jul, Cirrhosis of liver without ascites, unspecified hepatic cirrhosis type K74.60 and Chronic obstructive pulmonary disease, unspecified COPD type J44.9 [facility] [address] [address] Jul, [place] [id number] [address] Jul, Cirrhosis of liver without ascites, unspecified hepatic cirrhosis type K74.60 [facility] [id number] [place] [address] Jul, [facility] [id number] [place] [address] Jul, [facility] [id number] [place] [address] Jun, Cirrhosis of liver without ascites, unspecified hepatic cirrhosis type K74.60 and Viral gastroenteritis A08.4 [facility] [id number] [place] [address] Jun, Nausea and vomiting, intractability of vomiting not specified, unspecified vomiting type R11.2 ; Acute nonintractable headache, unspecified headache type R51 and History of encephalopathy Z86.69 [facility] [id number] [place] [address] Jun, [facility] [id number] [place] [address] Jun, Neuropathy, diabetic E11.40 and Hypertension, benign I10 [facility] [id number] [place] [address] Jun, [facility] [id number] [place] [address] Jun, [facility] [id number] [place] [id number] Jun, [facility] [id number] [place] [address] Jun, [facility] [id number] [place] [address] Jun, [facility] [id number] [place] [address] Jun, Viral gastroenteritis A08.4 and Diabetes E11.9 [facility] [id number] [place] [address] May, Lumbago with sciatica, left side M54.42 [facility] [id number] [place] [address] 14 May, 2017 Lumbago with sciatica, left side M54.42 [facility] [id number] [place] [address] May, [facility] [id number] [place] [address] May, [facility] [id number] [place] [address] Apr, Lumbago with sciatica, left side M54.42 ; Neuropathy, diabetic E11.40 and Mood disorder F39 [facility] [id number] [place] [address] Apr, [facility] [id number] [place] [address] Apr, [facility] [id number] [place] [address] Mar, Other chronic pain G89.29 and Type 2 diabetes mellitus without complications E11.9 [facility] [id number] [place] [address] Mar, Other chronic pain G89.29 [facility] [id number] [place] [address] Feb, Other chronic pain G89.29 [facility] [id number] [place] [address] January, Shoulder pain, left M25.512 and Other chronic pain G89.29 [facility] [id number] [place] [address] January, [place] [id number] [address] January, 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 [facility] [address] [address] January, Diabetes E11.9 [facility] [address] [address] January, Diabetes E11.9 ; Chronic pain disorder G89.4 ; Lumbago with sciatica, left side M54.42 and Other acute postprocedural pain G89.18 [facility] [id number] [place] [address] Dec, 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 [facility] [address] [address] Nov, 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 [facility] [address] [address] Nov, 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 [facility] [id number] [place] [address] Oct, Diabetes E11.9 [facility] [address] [address] Oct, Diabetes E11.9 ; Neuropathy, diabetic E11.40 and 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 [facility] [address] [address] Sep, [facility] [address] [address] Aug, Diabetes type 2, controlled E11.9 [facility] [address] [address] Aug, Diabetic mononeuropathy associated with type 2 diabetes mellitus E11.41 [facility] [address] [place] [address] Jul, [facility] [id number] [place] [address] Jul, Primary insomnia F51.01 [facility] [id number] [place] [address] Jun, [facility] [id number] [place] [address] Jun, Diabetes E11.9 ; Primary insomnia F51.01 and Depression, unspecified depression type F32.9 [facility] [id number] [place] [address] Jun, [facility] [id number] [place] [address] Jun, [facility] [id number] [place] [address] May, [facility] [id number] [place] [address] May, Mood disorder F39 [facility] [id number] [place] [address] Apr, [facility] [id number] [place] [address] Mar, Acute cystitis without hematuria N30.00 [facility] [id number] [place] [address] Feb, Diabetes E11.9 [facility] [address] [address] January, [facility] [id number] [place] [address] January, [facility] [id number] [place] [address] January, Acute cystitis without hematuria N30.00 ; 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 ; Fatigue, unspecified type R53.83 and Weight loss, abnormal R63.4 [facility] [address] [place] [address] January, [facility] [id number] [place] [address] Dec, [facility] [id number] [place] [address] Nov, [facility] [address] [address] Nov, Neuropathy, diabetic E11.40 [place] [id number] [place] [address] Oct, Neuropathy, diabetic E11.40 [facility] [id number] [place] [address] Oct, [facility] [address] [address] Oct, [facility] [id number] [place] [address] Oct, [facility] [id number] [place] [address] Aug, [place] [id number] [place] [address] Aug, Type 2 diabetes mellitus with foot ulcer E11.621 ; Nausea R11.0 ; Other complications following infusion, transfusion and therapeutic injection, initial encounter T80.89XA ; Hyperlipidemia, mixed E78.2 and Nail ingrowing L60.0 [place] [id number] [place] [address] Jul, [place] [id number] [place] [address] Jul, Diabetes E11.9 [facility] [id number] [place] [address] Jul, Type 2 diabetes mellitus with foot ulcer E11.621 and Non-pressure chronic ulcer of other part of left foot with unspecified severity L97.529 [place] [address] [address] Jun, Diabetes E11.9 ; Shoulder pain, left M25.512 ; Abdominal pain, lower R10.30 ; Hepatitis C, chronic B18.2 and Diabetes mellitus without mention of complication, type II or unspecified type, not stated as uncontrolled 250.00 [place] [address] [address] Jun, Cellulitis, abdominal wall L03.311 and Nocturnal hypoxemia G47.34 [place] [address] [address] Jun, Diabetes mellitus without mention of complication, type II or unspecified type, not stated as uncontrolled 250.00 [place] [address] [address] May, Diabetes mellitus without mention of complication, type II or unspecified type, not stated as uncontrolled 250.00 [place] [address] [address] May, Abdominal pain 789.00 [place] [address] [address] May, [place] [address] [address] May, [place] [address] [address] May, Diabetes mellitus without mention of complication, type II or unspecified type, not stated as uncontrolled 250.00 [place] [address] [address] Apr, [place] [address] [address] Mar, [place] [address] [place] [address] Mar, Diabetes mellitus without mention of complication, type II or unspecified type, not stated as uncontrolled 250.00 [facility] [address] [address] Feb, Diabetes mellitus without mention of complication, type II or unspecified type, not stated as uncontrolled 250.00 and Chronic pain 338.29 [facility] [id number] [place] [address] Feb, [facility] [address] [place] [address] January, Diabetes mellitus without mention of complication, type II or unspecified type, not stated as uncontrolled 250.00 and Chronic pain 338.29 [facility] [address] [address] January, [facility] [id number] [place] [address] Dec, [facility] [address] [address] Dec, [facility] [address] [place] [address] Oct, [facility] [address] [address] Oct, [facility] [address] [address] Oct, [facility] [address] [address] Oct, [facility] [id number] [place] [address] Oct, [facility] [address] [address] Oct, [facility] [address] [address] Oct, 2014 [facility] [place] [facility] [address] [id number] [place] [address] Oct, 2014 [facility] [place] [facility] [address] [id number] [place] [address] Oct, 2014 [facility] [place] [facility] [address] [id number] [place] [address] Oct, 2014 [facility] [place] [facility] [address] [id number] [place] [address] Oct, 2014 [facility] [place] [facility] [address] [id number] [place] [address] Oct, 2014 [facility] [place] [facility] [address] [id number] [place] [address] Sep, [facility] [place] [facility] [address] [id number] [place] [address] Sep, [facility] [place] [facility] [address] [id number] [place] [address] Aug, [facility] [place] [facility] [address] [id number] [place] [address] Aug, [facility] [place] [facility] [address] [facility] [id number] [place] [address] Aug, [facility] [place] [facility] [address] [id number] [place] [address] Aug, [facility] [place] [facility] [address] [id number] [place] [address] Aug, [facility] [place] [facility] [address] [id number] [place] [address] Aug, [facility] [place] [facility] [address] [id number] [place] [address] Aug, [facility] [place] [facility] [address] [id number] [place] [address] Aug, [facility] [place] [facility] [address] [id number] [place] [address] Aug, [facility] [place] [facility] [address] [id number] [place] [address] Aug, [facility] [place] [facility] [address] [id number] [place] [address] Jul, [facility] [place] [facility] [address] [id number] [place] [address] Jul, [facility] [place] [facility] [address] [id number] [place] [address] Jun, [facility] [place] [facility] [address] [id number] [place] [address] Jun, [facility] [place] [facility] [address] [id number] [place] [address] Jun, [facility] [place] [facility] [address] [id number] [place] [address] Jun, [facility] [place] [facility] [address] [id number] [place] [address] Jun, [facility] [place] [facility] [address] [id number] [place] [address] Jun, [facility] [place] [facility] [address] [id number] [place] [address] Jun, [facility] [place] [facility] [address] [id number] [place] [address] 30 May, 2014 [facility] [place] [facility] [address] [id number] [place] [address] 30 May, 2014 [facility] [place] [facility] [address] [id number] [place] [address] 30 May, 2014 [facility] [place] [facility] [address] [id number] [place] [address] 30 May, 2014 [facility] [place] [facility] [address] [id number] [place] [address] May, 2013 [facility] [place] [facility] [address] [id number] [place] [address] May, 2013 [facility] [place] [facility] [address] [id number] [place] [address] May, 2013 [facility] [place] [facility] [address] [id number] [place] [address] May, 2013 [facility] [place] [facility] [address] [id number] [place] [address] May, 2013 [facility] [place] [facility] [address] [id number] [place] [address] May, 2013 [facility] [place] [facility] [address] [id number] [place] [address] May, [facility] [place] [facility] [address] [id number] [place] [address] May, 2013 [facility] [place] [facility] [address] [id number] [place] [address] May, [facility] [place] [facility] [address] [id number] [place] [address] Mar, [facility] [place] [facility] [address] [id number] [place] [address] Mar, [facility] [place] [facility] [address] [id number] [place] [address] Mar, [facility] [place] [facility] [address] [id number] [place] [address] Mar, [facility] [place] [facility] [address] [id number] [place] [address] Mar, [facility] [place] [facility] [address] [id number] [place] [address] Mar, [facility] [place] [facility] [address] [id number] [place] [address] Feb, [facility] [place] [facility] [address] [id number] [place] [address] Feb, [facility] [place] [facility] [address] [id number] [place] [address] Feb, [facility] [place] [facility] [address] [id number] [place] [address] Feb, [facility] [place] [facility] [address] [id number] [place] [address] Feb, [facility] [place] [facility] [address] [id number] [place] [address] Feb, [facility] [place] [facility] [address] [id number] [place] [address] Feb, [facility] [place] [facility] [address] [id number] [place] [address] Feb, [facility] [place] [facility] [address] [id number] [place] [address] Feb, [facility] [place] [facility] [address] [id number] [place] [address] January, [facility] [place] [facility] [address] [id number] [place] [address] January, [facility] [place] [facility] [address] [id number] [place] [address] Dec, [facility] [place] [facility] [address] [id number] [place] [address] Dec, [facility] [place] [facility] [address] [id number] [place] [address] Dec, [facility] [place] [facility] [address] [id number] [place] [address] Dec, [facility] [place] [facility] [address] [id number] [place] [address] Nov, [facility] [place] [facility] [address] [id number] [place] [address] Nov, [facility] [place] [facility] [address] [id number] [place] [address] Nov, [facility] [place] [facility] [address] [id number] [place] [address] Nov, [facility] [place] [facility] [address] [id number] [place] [address] Nov, [facility] [place] [facility] [address] [id number] [place] [address] Nov, [facility] [place] [facility] [address] [id number] [place] [address] Nov, [facility] [place] [facility] [address] [id number] [place] [address] Nov, [facility] [place] [facility] [address] [id number] [place] [address] Nov, [facility] [place] [facility] [address] [id number] [place] [address] Nov, [facility] [place] [facility] [address] [id number] [place] [address] Oct, [facility] [place] [facility] [address] [id number] [place] [address] Oct, [facility] [place] [facility] [address] [id number] [place] [address] Sep, [facility] [place] [facility] [address] [id number] [place] [address] Sep, [facility] [place] [facility] [address] [id number] [place] [address] Sep, [facility] [place] [facility] [address] [id number] [place] [address] Aug, [facility] [place] [facility] [address] [id number] [place] [address] Aug, [facility] [place] [facility] [address] [id number] [place] [address] Aug, [facility] [place] [facility] [address] [id number] [place] [address] Aug, [facility] [place] [facility] [address] [id number] [place] [address] Jul, [facility] [place] [facility] [address] [id number] [place] [address] Jul, [facility] [place] [facility] [address] [id number] [place] [address] Jul, [facility] [place] [facility] [address] [id number] [place] [address] Jul, [facility] [place] [facility] [address] [id number] [place] [address] Jun, [facility] [place] [facility] [address] [id number] [place] [address] Jun, [facility] [place] [facility] [address] [id number] [place] [address] Jun, [facility] [place] [facility] [address] [id number] [place] [address] Jun, [facility] [place] [facility] [address] [id number] [place] [address] Jun, [facility] [place] [facility] [address] [id number] [place] [address] Jun, [facility] [place] [facility] [address] [id number] [place] [address] Jun, [facility] [place] [facility] [address] [id number] [place] [address] Jun, [facility] [place] [facility] [address] [id number] [place] [address] May, [facility] [place] [facility] [address] [id number] [place] [address] Apr, [facility] [place] [facility] [address] [id number] [place] [address] Mar, [facility] [place] [facility] [address] [id number] [place] [address] Mar, [facility] [place] [facility] [address] [id number] [place] [address] Feb, [facility] [place] [facility] [address] [id number] [place] [address] Feb, [facility] [place] [facility] [address] [id number] [place] [address] Feb, [facility] [place] [facility] [address] [id number] [place] [address] 24 Dec, 2012 [facility] [place] [facility] [address] [id number] [place] [address] Dec, [facility] [place] [facility] [address] [id number] [place] [address] Dec, [facility] [place] [facility] [address] [id number] [place] [address] Nov, [facility] [place] [facility] [address] [id number] [place] [address] Oct, [facility] [place] [facility] [address] [id number] [place] [address] Oct, [facility] [place] [facility] [address] [id number] [place] [address] Oct, [facility] [place] [facility] [address] [id number] [place] [address] Oct, [facility] [place] [facility] [address] [id number] [place] [address] 14 Sep, 2012 [facility] [place] [facility] [address] [id number] [place] [address] Sep, [facility] [place] [facility] [address] [id number] [place] [address] 31 Aug, 2012 [facility] [place] [facility] [address] [id number] [place] [address] 31 Aug, 2012 [facility] [place] [facility] [address] [id number] [place] [address] Aug, [facility] [place] [facility] [address] [id number] [place] [address] Aug, [facility] [place] [facility] [address] [id number] [place] [address] Aug, [facility] [place] [facility] [address] [id number] [place] [address] Aug, [facility] [place] [facility] [address] [id number] [place] [address] Aug, [facility] [place] [facility] [address] [facility] [id number] [place] [address] 18 Aug, 2012 [facility] [place] [facility] [address] [id number] [place] [address] 14 Aug, 2012 [facility] [place] [facility] [address] [id number] [place] [address] 14 Aug, 2012 [facility] [place] [facility] [address] [facility] [id number] [place] [address] Aug, [facility] [place] [facility] [address] [id number] [place] [address] Aug, [facility] [place] [facility] [address] [id number] [place] [address] Jul, [facility] [place] [facility] [address] [id number] [place] [address] Jul, [facility] [place] [facility] [address] [id number] [place] [address] Jul, [facility] [place] [facility] [address] [facility] [id number] [place] [address] Jul, [facility] [place] [facility] [address] [id number] [place] [address] Jul, [facility] [place] [facility] [address] [id number] [place] [address] Jul, [facility] [place] [facility] [address] [id number] [place] [address] Jul, [facility] [place] [facility] [address] [id number] [place] [address] Jul, [facility] [place] [facility] [address] [id number] [place] [address] Jul, [facility] [place] [facility] [address] [id number] [place] [address] Jul, [facility] [place] [facility] [address] [id number] [place] [address] Jun, [facility] [place] [facility] [address] [id number] [place] [address] Jun, [facility] [place] [facility] [address] [id number] [place] [address] Jun, [facility] [place] [facility] [address] [id number] [place] [address] Jun, [facility] [place] [facility] [address] [id number] [place] [address] Apr, [facility] [place] [facility] [address] [id number] [place] [address] Mar, [facility] [place] [facility] [address] [id number] [place] [address] Mar, [facility] [place] [facility] [address] [id number] [place] [address] Mar, [facility] [place] [facility] [address] [id number] [place] [address] Mar, [facility] [place] [facility] [address] [id number] [place] [address] Mar, [facility] [place] [facility] [address] [id number] [place] [address] Feb, [facility] [place] [facility] [address] [id number] [place] [address] Feb, [facility] [place] [facility] [address] [id number] [place] [address] January, [facility] [place] [facility] [address] [id number] [place] [address] January, [facility] [place] [facility] [address] [id number] [place] [address] Nov, [facility] [place] [facility] [address] [id number] [place] [address] Nov, [facility] [place] [facility] [address] [id number] [place] [address] Nov, [facility] [place] [facility] [address] [id number] [place] [address] Nov, [facility] [place] [facility] [address] [id number] [place] [address] Nov, [facility] [place] [facility] [address] [id number] [place] [address] Oct, [facility] [place] [facility] [address] [id number] [place] [address] Jul, [facility] [place] [facility] [address] [id number] [place] [address] Jul, [facility] [place] [facility] [address] [id number] [place] [address] Jul, [facility] [place] [facility] [address] [id number] [place] [address] Jun, [facility] [place] [facility] [address] [id number] [place] [address] Jun, [facility] [place] [facility] [id number] [place] [address] Dec, [facility] [id number] [address] Aug, [facility] [id number] [address] Aug, [facility] [id number] [address] Jul, [facility] [id number] [address] Jul, [facility] [id number] [place] [address] Jul, [facility] [id number] [address] Jun, [facility] [id number] [address] Jun, [facility] [id number] [address] Jun, [facility] [id number] [address] May, [facility] [id number] [address] Feb, [facility] [id number] [address] January, IMMUNIZATIONS No Known Immunizations SOCIAL HISTORY Never Assessed REASON FOR VISIT Liver Biopsy f/uPepito FLANNERY PLAN OF CARE Activity Details Follow Up 3 Months Reason:liver/COPD VITAL SIGNS Height 69 in 2017-09-30 Weight 231.5 lbs 2017-09-30 Temperature 99.1 degrees Fahrenheit 2017-09-30 Heart Rate 82 bpm 2017-09-30 Respiratory Rate 20 2017-09-30 BMI 34.18 kg/m2 2017-09-30 Blood pressure systolic 132 mmHg 2017-09-30 Blood pressure diastolic 76 mmHg 2017-09-30 MEDICATIONS Medication Instructions Dosage Frequency Start Date End Date Duration Status Omeprazole 20 mg Orally Once a day 1 capsule 24h 30 days Active Albuterol Sulfate HFA 108 (90 Base) MCG/ACT Inhalation every 6 hrs 2 puffs as needed 6h Sep, Active NovoLog Flexpen 100 UNIT/ML Subcutaneous 3 times a day ac meals 5 units 30 days Active Ondansetron 4 MG Orally every 8 hrs as needed 1 tablet on the tongue and allow to dissolve 30 days Not-Taking BD Pen Needle Short U/F 31G X 8 MM SQ 5 times a day as directed May, Active Levemir FlexTouch 100 UNIT/ML Subcutaneous at bedtime 30 units 30 days Active Lactulose 10 GM/15ML Orally twice a day 15 ml 12h Jun, 90 days Active Atorvastatin Calcium 20 mg Orally Once a day 1 tablet 24h 30 Active Albuterol 90 MCG/ACT Inhalation 4 times a day 2 puffs as needed for SOB 6h Jul, Active Lisinopril 20 mg Orally Once a day 1 tablet 24h 30 days Active Metoprolol Tartrate 50 mg Orally Twice a day 1 tablet with food 12h Jun, 30 day(s) Active RESULTS No Results PROCEDURES No Known [...]
--- OUTSIDE RECORDS SUMMARY | 2019-04-25 17:14 | XMS REPORT ---
Author Author RONALD KELLEY Organization [facility] Address [address] 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 Name Role Phone RONALD KELLEY Unavailable PROBLEMS Type Condition ICD9-CM Code [id number] Code Onset Dates Condition Status SNOMED Code Problem Hyperlipidemia, mixed E78.2 Active 328196984 Problem Depression, unspecified depression type F32.9 Active 19274479 Problem Neuropathy, diabetic E11.40 Active 209946728 Problem Mood disorder F39 Active 73789168 Problem Primary insomnia F51.01 Active 566677777 Problem Hypertension, benign I10 Active 64690150 Problem Edema, unspecified type R60.9 Active 369934092 Problem Diabetes E11.9 Active 693026237 Problem Cirrhosis of liver without ascites, unspecified hepatic cirrhosis type K74.60 Active 35232306 Problem Type 2 diabetes mellitus without complications E11.9 Active 227742930 Problem Precordial pain R07.2 Active 54569271 Problem Chronic obstructive pulmonary disease, unspecified COPD type J44.9 Active [id number] ALLERGIES No Information ENCOUNTERS Encounter Location Date Diagnosis [facility] [id number] [place] [address] Mar, [facility] [id number] [place] [address] Mar, [facility] [id number] [place] [address] Feb, Cirrhosis of liver without ascites, unspecified hepatic cirrhosis type K74.60 and Edema, unspecified type R60.9 [facility] [id number] [place] [address] Feb, [facility] [id number] [place] [address] January, [place] [address] [address] January, Diabetes E11.9 [place] [id number] [place] [address] January, Diabetes E11.9 [place] [id number] [place] [address] Dec, Diabetes E11.9 ; Mood disorder F39 ; Hyperlipidemia, mixed E78.2 ; Precordial pain R07.2 ; Type 2 diabetes mellitus with hyperglycemia E11.65 and 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 [place] [id number] [place] [address] Dec, [place] [id number] [place] [address] Nov, [place] [id number] [place] [address] Nov, Cirrhosis of liver without ascites, unspecified hepatic cirrhosis type K74.60 ; Type 2 diabetes mellitus without complications E11.9 ; Precordial pain R07.2 and BMI 40.0-44.9, adult Z68.41 [address] [place] [address] Nov, Cirrhosis of liver without ascites, unspecified hepatic cirrhosis type K74.60 [place] [id number] [place] [address] Oct, [place] [id number] [place] [address] Oct, Cirrhosis of liver without ascites, unspecified hepatic cirrhosis type K74.60 ; Chronic obstructive pulmonary disease, unspecified COPD type J44.9 and Influenza-like illness R69 [address] [address] Oct, [place] [id number] [place] [address] Oct, [facility] [address] [address] Oct, Cirrhosis of liver without ascites, unspecified hepatic cirrhosis type K74.60 [facility] [address] [address] Sep, [facility] [id number] [place] [address] Sep, Chronic obstructive pulmonary disease, unspecified COPD type J44.9 [facility] [id number] [place] [address] Sep, Cirrhosis of liver without ascites, unspecified hepatic cirrhosis type K74.60 and Chronic obstructive pulmonary disease, unspecified COPD type J44.9 [facility] [id number] [place] [address] Aug, [facility] [id number] [place] [address] Aug, Cirrhosis of liver without ascites, unspecified hepatic cirrhosis type K74.60 [facility] [id number] [place] [address] Aug, [facility] [address] [address] Aug, [facility] [address], [place] [address] Jul, [facility] [id number] [place] [address] Jul, Diabetes E11.9 and Viral gastroenteritis A08.4 [facility] [id number] [place] [address] Jul, Cirrhosis of liver without ascites, unspecified hepatic cirrhosis type K74.60 and Chronic obstructive pulmonary disease, unspecified COPD type J44.9 [facility] [address], [place] [address] Jul, [facility] [id number] [place] [address] Jul, Cirrhosis of liver without ascites, unspecified hepatic cirrhosis type K74.60 [facility] [id number] [place] [address] Jul, [facility] [id number] [place] [address] Jul, [facility] [id number] [place] [address] Jun, Cirrhosis of liver without ascites, unspecified hepatic cirrhosis type K74.60 and Viral gastroenteritis A08.[address] [facility] [id number] [place] [address] Jun, Nausea and vomiting, intractability of vomiting not specified, unspecified vomiting type R11.2 ; Acute nonintractable headache, unspecified headache type R51 and History of encephalopathy Z86.69 [facility] [id number] [place] [address] Jun, [facility] [id number] [place] [address] Jun, Neuropathy, diabetic E11.40 and Hypertension, benign I10 [facility] [id number] [place] [address] Jun, [facility] [id number] [place] [address] Jun, [facility] [id number] [place] [id number] Jun, [facility] [id number] [place] [address] Jun, [facility] [id number] [place] [address] Jun, [facility] [id number] [place] [address] Jun, Viral gastroenteritis A08.4 and Diabetes E11.9 [facility] [id number] [place] [address] May, Lumbago with sciatica, left side M54.42 [facility] [id number] [place] [address] May, Lumbago with sciatica, left side M54.42 [facility] [id number] [place] [address] May, [facility] [id number] [place] [address] May, [facility] [id number] [place] [address] Apr, Lumbago with sciatica, left side M54.42 ; Neuropathy, diabetic E11.40 and Mood disorder F39 [facility] [id number] [place] [address] Apr, [facility] [id number] [place] [address] Apr, [facility] [id number] [place] [address] Mar, Other chronic pain G89.29 and Type 2 diabetes mellitus without complications E11.9 [facility] [id number] [place] [address] Mar, Other chronic pain G89.29 [facility] [id number] [place] [address] Feb, Other chronic pain G89.29 [facility] [id number] [place] [address] January, Shoulder pain, left M25.512 and Other chronic pain G89.29 [facility] [id number] [place] [address] January, [facility] [address], [place] [address] January, 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 [facility] [address], [place] [address] January, Diabetes E11.9 [facility] [address], [place] [address] January, Diabetes E11.9 ; Chronic pain disorder G89.4 ; Lumbago with sciatica, left side M54.42 and Other acute postprocedural pain G89.18 [facility] [id number] [place] [address] Dec, 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 [facility] [id number] [place] [address] Nov, 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 [facility] [address], [place] [address] Nov, 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 [facility] [id number] [place] [address] Oct, Diabetes E11.9 [facility] [address], [place] [address] Oct, Diabetes E11.9 ; Neuropathy, diabetic E11.40 and 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 [facility] [address], [place] [address] Sep, [facility] [id number] [place] [address] Aug, Diabetes type 2, controlled E11.9 [facility] [address], [place] [address] Aug, Diabetic mononeuropathy associated with type 2 diabetes mellitus E11.41 [facility] [id number] [place] [address] Jul, [facility] [id number] [place] [address] Jul, Primary insomnia F51.01 [facility] [id number] [place] [address] Jun, [facility] [id number] [place] [address] Jun, Diabetes E11.9 ; Primary insomnia F51.01 and Depression, unspecified depression type F32.9 [facility] [id number] [place] [address] Jun, [facility] [id number] [place] [address] Jun, [facility] [id number] [place] [address] May, [facility] [id number] [place] [address] May, Mood disorder F39 [facility] [id number] [place] [address] Apr, [facility] [id number] [place] [address] Mar, Acute cystitis without hematuria N30.00 [facility] [id number], [place] [address] Feb, Diabetes E11.9 [facility] [address], [place] [address] January, [facility] [id number] [place] [address] January, [facility] [address] [place] [address] January, Acute cystitis without hematuria N30.00 ; 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 ; Fatigue, unspecified type R53.83 and Weight loss, abnormal R63.4 [facility] [id number] [place] [address] January, [facility] [id number] [place] [address] Dec, [facility] [id number] [place] [address] Nov, [facility] [address] [address] Nov, Neuropathy, diabetic E11.40 [place] [address] [address] Oct, Neuropathy, diabetic E11.40 [place] [address] [address] Oct, [place] [address] [address] Oct, [facility] [id number] [place] [address] Oct, [place] [id number] [place] [address] Aug, [place] [id number] [place] [address] Aug, Type 2 diabetes mellitus with foot ulcer E11.621 ; Nausea R11.0 ; Other complications following infusion, transfusion and therapeutic injection, initial encounter T80.89XA ; Hyperlipidemia, mixed E78.2 and Nail ingrowing L60.0 [place] [id number] [place] [address] Jul, [place] [id number] [place] [address] Jul, Diabetes E11.9 [place] [address] [address] Jul, Type 2 diabetes mellitus with foot ulcer E11.621 and Non-pressure chronic ulcer of other part of left foot with unspecified severity L97.529 [place] [id number] [place] [address] Jun, Diabetes E11.9 ; Shoulder pain, left M25.512 ; Abdominal pain, lower R10.30 ; Diabetes mellitus without mention of complication, type II or unspecified type, not stated as uncontrolled 250.00 and Hepatitis C, chronic B18.2 [place] [address] [address] Jun, Cellulitis, abdominal wall L03.311 and Nocturnal hypoxemia G47.34 [place] [id number] [place] [address] Jun, Diabetes mellitus without mention of complication, type II or unspecified type, not stated as uncontrolled 250.00 [place] [address] [address] May, Diabetes mellitus without mention of complication, type II or unspecified type, not stated as uncontrolled 250.00 [place] [id number] [place] [address] May, Abdominal pain 789.00 [place] [id number] [place] [address] May, [place] [id number] [place] [address] May, [place] [id number] [place] [address] May, Diabetes mellitus without mention of complication, type II or unspecified type, not stated as uncontrolled 250.00 [place] [id number] [place] [address] Apr, [place] [id number] [place] [address] Mar, [place] [address] [address] Mar, Diabetes mellitus without mention of complication, type II or unspecified type, not stated as uncontrolled 250.00 [facility] [address], [place] [address] Feb, Diabetes mellitus without mention of complication, type II or unspecified type, not stated as uncontrolled 250.00 and Chronic pain 338.29 [facility] [address], [place] [address] Feb, [facility] [id number], [place] [address] January, Diabetes mellitus without mention of complication, type II or unspecified type, not stated as uncontrolled 250.00 and Chronic pain 338.29 [facility] [address], [place] [address] January, [facility] [address], [place] [address] Dec, [facility] [address], [place] [address] Dec, [facility] [address], [place] [address] Oct, [facility] [id number], [place] [address] Oct, [facility] [address], [place] [address] Oct, [facility] [id number], [place] [address] Oct, [facility] [address], [place] [address] Oct, [facility] [id number], [place] [address] Oct, [facility] [id number] [place] [address] Oct, 2014 [facility] [place] [facility] [address] [id number] [place] [address] Oct, 2014 [facility] [place] [facility] [address] [id number] [place] [address] Oct, 2014 [facility] [place] [facility] [address] [id number] [place] [address] Oct, 2014 [facility] [place] [facility] [address] [id number] [place] [address] Oct, 2014 [facility] [place] [facility] [address] [id number] [place] [address] Oct, 2014 [facility] [place] [facility] [address] [facility] [id number] [place] [address] Sep, [facility] [place] [facility] [address] [facility] [id number] [place] [address] Sep, [facility] [place] [facility] [address] [id number] [place] [address] Aug, [facility] [place] [facility] [address] [id number] [place] [address] Aug, [facility] [place] [facility] [address] [facility] [id number] [place] [address] Aug, [facility] [place] [facility] [address] [facility] [id number] [place] [address] Aug, [facility] [place] [facility] [address] [id number] [place] [address] Aug, [facility] [place] [facility] [address] [id number] [place] [address] Aug, [facility] [place] [facility] [address] [id number] [place] [address] Aug, [facility] [place] [facility] [address] [id number] [place] [address] Aug, [facility] [place] [facility] [address] [id number] [place] [address] Aug, [facility] [place] [facility] [address] [id number] [place] [address] Aug, [facility] [place] [facility] [address] [id number] [place] [address] Jul, [facility] [place] [facility] [address] [id number] [place] [address] Jul, [facility] [place] [facility] [address] [id number] [place] [address] Jun, [facility] [place] [facility] [address] [id number] [place] [address] Jun, [facility] [place] [facility] [address] [id number] [place] [address] Jun, [facility] [place] [facility] [address] [id number] [place] [address] Jun, [facility] [place] [facility] [address] [id number] [place] [address] Jun, [facility] [place] [facility] [address] [id number] [place] [address] Jun, [facility] [place] [facility] [address] [id number], [place] [address] Jun, [facility] [place] [facility] [address] [id number], [place] [address] 30 May, 2014 [facility] [place] [facility] [address] [id number] [place] [address] 30 May, 2014 [facility] [place] [facility] [address] [id number] [place] [address] 30 May, 2014 [facility] [place] [facility] [address] [id number] [place] [address] 30 May, 2014 [facility] [place] [facility] [address] [id number] [place] [address] May, 2013 [facility] [place] [facility] [address] [id number] [place] [address] May, 2013 [facility] [place] [facility] [address] [id number] [place] [address] May, 2013 [facility] [place] [facility] [address] [id number] [place] [address] May, 2013 [facility] [place] [facility] [address] [id number] [place] [address] May, 2013 [facility] [place] [facility] [address] [id number] [place] [address] May, 2013 [facility] [place] [facility] [address] [id number] [place] [address] May, 2013 [facility] [place] [facility] [address] [id number] [place] [address] May, 2013 [facility] [place] [facility] [address] [id number] [place] [address] May, 2013 [facility] [place] [facility] [address] [id number] [place] [address] Mar, 2013 [facility] [place] [facility] [address] [id number] [place] [address] Mar, [facility] [place] [facility] [address] [id number] [place] [address] Mar, 2013 [facility] [place] [facility] [address] [id number] [place] [address] Mar, [facility] [place] [facility] [address] [id number] [place] [address] Mar, [facility] [place] [facility] [address] [id number] [place] [address] Mar, 2013 [facility] [place] [facility] [address] [id number] [place] [address] Feb, [facility] [place] [facility] [address] [id number] [place] [address] Feb, [facility] [place] [facility] [address] [id number] [place] [address] Feb, [facility] [place] [facility] [address] [id number] [place] [address] Feb, [facility] [place] [facility] [address] [id number] [place] [address] Feb, [facility] [place] [facility] [address] [id number] [place] [address] Feb, [facility] [place] [facility] [address] [id number] [place] [address] Feb, [facility] [place] [facility] [address] [id number] [place] [address] Feb, [facility] [place] [facility] [address] [id number] [place] [address] Feb, [facility] [place] [facility] [address] [id number] [place] [address] January, [facility] [place] [facility] [address] [id number] [place] [address] January, [facility] [place] [facility] [address] [id number] [place] [address] Dec, [facility] [place] [facility] [address] [id number] [place] [address] Dec, [facility] [place] [facility] [address] [id number] [place] [address] Dec, [facility] [place] [facility] [address] [id number] [place] [address] Dec, [facility] [place] [facility] [address] [id number] [place] [address] Nov, [facility] [place] [facility] [address] [id number] [place] [address] Nov, [facility] [place] [facility] [address] [id number] [place] [address] Nov, [facility] [place] [facility] [address] [id number] [place] [address] Nov, [facility] [place] [facility] [address] [id number] [place] [address] Nov, [facility] [place] [facility] [address] [id number] [place] [address] Nov, [facility] [place] [facility] [address] [id number] [place] [address] Nov, [facility] [place] [facility] [address] [id number] [place] [address] Nov, [facility] [place] [facility] [address] [id number] [place] [address] Nov, [facility] [place] [facility] [address] [id number] [place] [address] Nov, [facility] [place] [facility] [address] [id number] [place] [address] Oct, [facility] [place] [facility] [address] [id number] [place] [address] Oct, [facility] [place] [facility] [address] [id number] [place] [address] Sep, [facility] [place] [facility] [address] [id number] [place] [address] Sep, [facility] [place] [facility] [address] [id number] [place] [address] Sep, [facility] [place] [facility] [address] [id number] [place] [address] Aug, [facility] [place] [facility] [address] [id number] [place] [address] Aug, [facility] [place] [facility] [address] [id number] [place] [address] Aug, [facility] [place] [facility] [address] [id number] [place] [address] Aug, [facility] [place] [facility] [address] [id number] [place] [address] Jul, [facility] [place] [facility] [address] [id number] [place] [address] Jul, [facility] [place] [facility] [address] [id number] [place] [address] Jul, [facility] [place] [facility] [address] [id number] [place] [address] Jul, [facility] [place] [facility] [address] [id number] [place] [address] Jun, [facility] [place] [facility] [address] [id number] [place] [address] Jun, [facility] [place] [facility] [address] [id number] [place] [address] Jun, [facility] [place] [facility] [address] [id number] [place] [address] Jun, [facility] [place] [facility] [address] [id number] [place] [address] Jun, [facility] [place] [facility] [address] [id number] [place] [address] Jun, [facility] [place] [facility] [address] [id number] [place] [address] Jun, [facility] [place] [facility] [address] [id number] [place] [address] Jun, [facility] [place] [facility] [address] [id number] [place] [address] May, [facility] [place] [facility] [address] [id number] [place] [address] Apr, [facility] [address] [id number] [place] [address] Mar, [facility] [place] [facility] [address] [id number] [place] [address] Mar, [facility] [place] [facility] [address] [id number] [place] [address] Feb, [facility] [place] [facility] [address] [id number] [place] [address] Feb, [facility] [place] [facility] [address] [id number] [place] [address] Feb, [facility] [place] [facility] [address] [id number] [place] [address] Dec, [facility] [place] [facility] [address] [id number] [place] [address] Dec, [facility] [place] [facility] [address] [id number] [place] [address] Dec, [facility] [place] [facility] [address] [id number] [place] [address] Nov, [facility] [place] [facility] [address] [id number] [place] [address] Oct, [facility] [place] [facility] [address] [id number] [place] [address] Oct, [facility] [place] [facility] [address] [id number], [place] [address] Oct, [facility] [place] [facility] [address] [id number] [place] [address] Oct, [facility] [place] [facility] [address] [id number] [place] [address] Sep, [facility] [place] [facility] [address] [id number] [place] [address] Sep, [facility] [place] [facility] [address] [id number] [place] [address] 31 Aug, 2012 [facility] [address] [id number] [place] [address] 31 Aug, 2012 [facility] [address] [id number] [place] [address] Aug, [facility] [address] [id number] [place] [address] Aug, [facility] [address] [id number] [place] [address] Aug, [facility] [address] [id number] [place] [address] Aug, [facility] [address] [id number] [place] [address] 18 Aug, 2012 [facility] [address] [id number] [place] [address] 18 Aug, 2012 [facility] [address] [id number] [place] [address] 14 Aug, 2012 [facility] [address] [id number] [place] [address] 14 Aug, 2012 [facility] [address] [id number] [place] [address] 10 Aug, 2012 [facility] [place] [facility] [address] [id number] [place] [address] Aug, [facility] [place] [facility] [address] [id number] [place] [address] Jul, [facility] [place] [facility] [address] [id number] [place] [address] Jul, [facility] [place] [facility] [address] [id number] [place] [address] Jul, [facility] [place] [facility] [address] [id number] [place] [address] Jul, [facility] [place] [facility] [address] [id number] [place] [address] Jul, [facility] [place] [facility] [address] [id number] [place] [address] Jul, [facility] [place] [facility] [address] [id number] [place] [address] Jul, [facility] [place] [facility] [address] [id number] [place] [address] Jul, [facility] [place] [facility] [address] [id number] [place] [address] Jul, [facility] [place] [facility] [address] [id number] [place] [address] Jul, [facility] [place] [facility] [address] [id number] [place] [address] Jun, [facility] [place] [facility] [address] [id number] [place] [address] Jun, [facility] [place] [facility] [address] [id number] [place] [address] Jun, [facility] [place] [facility] [address] [id number] [place] [address] Jun, [facility] [place] [facility] [address] [id number] [place] [address] Apr, [facility] [place] [facility] [address] [id number], [place] [address] Mar, [facility] [place] [facility] [address] [id number] [place] [address] Mar, [facility] [place] [facility] [address] [id number] [place] [address] Mar, [facility] [place] [facility] [address] [id number] [place] [address] Mar, [facility] [place] [facility] [address] [id number], [place] [address] Mar, [facility] [place] [facility] [address] [id number] [place] [address] Feb, [facility] [place] [facility] [address] [id number] [place] [address] Feb, [facility] [place] [facility] [address] [facility] [id number] [place] [address] January, [facility] [place] [facility] [address] [id number] [place] [address] January, [facility] [place] [facility] [address] [id number] [place] [address] Nov, [facility] [place] [facility] [address] [id number] [place] [address] Nov, [facility] [place] [facility] [address] [facility] [id number] [place] [address] Nov, [facility] [place] [facility] [address] [facility] [id number] [place] [address] Nov, [facility] [place] [facility] [address] [facility] [id number] [place] [address] Nov, [facility] [place] [facility] [address] [facility] [id number] [place] [address] Oct, [facility] [place] [facility] [address] [facility] [id number], [place] [address] Jul, [facility] [place] [facility] [address] [id number], [place] [address] Jul, [facility] [place] [facility] [address] [id number] [place] [address] Jul, [facility] [place] [facility] [address] [facility] [id number] [place] [address] 24 Jun, 2011 [facility] [place] [facility] [address] [facility] [id number] [place] [address] Jun, [facility] [place] [facility] [id number], [place] [address] Dec, [facility] [id number], [place] [address] Aug, [facility] [id number], [place] [address] Aug, [facility] [id number], [place] [address] Jul, [facility] [id number], [place] [address] Jul, [facility] [id number] [place] [address] Jul, [facility] [id number], [place] [address] Jun, [facility] [id number] [place] [address] Jun, [facility] [id number], [place] [address] Jun, [facility] [id number], [place] [address] May, [facility] [id number] [address] Feb, [facility] [id number] [place] [address] January, IMMUNIZATIONS No Known Immunizations SOCIAL HISTORY Never Assessed REASON FOR VISIT headache PLAN OF CARE VITAL SIGNS MEDICATIONS Unknown [...]
[2019-04-25] MEDS ORDERED: IBUPROFEN 600 MG (MOTRIN) TAB PO ONE (17:15)
--- OUTSIDE RECORDS SUMMARY | 2019-04-25 17:15 | XMS REPORT ---
Author Author RONALD KELLEY Organization [facility] Address [address] [place] [address] Care Team Providers Care Landscape Account Manager Name Role Phone RONALD KELLEY Unavailable PROBLEMS Type Condition ICD9-CM Code BUD63-QR Code Onset Dates Condition Status SNOMED Code Problem Hyperlipidemia, mixed E78.2 Active 838683932 Problem Depression, unspecified depression type F32.9 Active 56915407 Problem Neuropathy, diabetic E11.40 Active 966633565 Problem Mood disorder F39 Active 48414168 Problem Primary insomnia F51.01 Active 576130008 Problem Hypertension, benign I10 Active 61519377 Problem Edema, unspecified type R60.9 Active 589805452 Problem Diabetes E11.9 Active 967079940 Problem Cirrhosis of liver without ascites, unspecified hepatic cirrhosis type K74.60 Active 72751939 Problem Type 2 diabetes mellitus without complications E11.9 Active 848463134 Problem Precordial pain R07.2 Active 66925852 Problem Chronic obstructive pulmonary disease, unspecified COPD type J44.9 Active [id number] ALLERGIES No Information ENCOUNTERS Encounter Location Date Diagnosis [facility] [id number] [place] [address] Mar, [facility] [id number] [place] [address] Mar, [facility] [id number] [place] [address] Feb, Cirrhosis of liver without ascites, unspecified hepatic cirrhosis type K74.60 and Edema, unspecified type R60.9 [facility] [id number] [place] [address] Feb, [facility] [id number] [place] [address] January, [place] [address] [address] January, Diabetes E11.9 [place] [id number] [place] [address] January, Diabetes E11.9 [place] [id number] [place] [address] Dec, Diabetes E11.9 ; Mood disorder F39 ; Hyperlipidemia, mixed E78.2 ; Precordial pain R07.2 ; Type 2 diabetes mellitus with hyperglycemia E11.65 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 [place] [id number] [place] [address] Dec, [place] [id number] [place] [address] Nov, [place] [id number] [place] [address] Nov, Cirrhosis of liver without ascites, unspecified hepatic cirrhosis type K74.60 ; Type 2 diabetes mellitus without complications E11.9 ; Precordial pain R07.2 and BMI 40.0-44.9, adult Z68.41 [id number] [place] [address] Nov, Cirrhosis of liver without ascites, unspecified hepatic cirrhosis type K74.60 [place] [id number] [place] [address] Oct, [place] [id number] [place] [address] Oct, Cirrhosis of liver without ascites, unspecified hepatic cirrhosis type K74.60 ; Chronic obstructive pulmonary disease, unspecified COPD type J44.9 and Influenza-like illness R69 [address] [address] Oct, [place] [id number] [place] [address] Oct, [facility] [address], [place] [address] Oct, Cirrhosis of liver without ascites, unspecified hepatic cirrhosis type K74.60 [facility] [address], [place] [address] Sep, [facility] [id number] [place] [address] Sep, Chronic obstructive pulmonary disease, unspecified COPD type J44.9 [facility] [id number] [place] [address] Sep, Cirrhosis of liver without ascites, unspecified hepatic cirrhosis type K74.60 and Chronic obstructive pulmonary disease, unspecified COPD type J44.9 [facility] [id number] [place] [address] Aug, [facility] [id number] [place] [address] Aug, Cirrhosis of liver without ascites, unspecified hepatic cirrhosis type K74.60 [facility] [id number] [place] [address] Aug, [facility] [address], [place] [address] Aug, [facility] [address], [place] [address] Jul, [facility] [id number] [place] [address] Jul, Diabetes E11.9 and Viral gastroenteritis A08.4 [facility] [id number] [place] [address] Jul, Cirrhosis of liver without ascites, unspecified hepatic cirrhosis type K74.60 and Chronic obstructive pulmonary disease, unspecified COPD type J44.9 [facility] [address], [place] [address] Jul, [facility] [id number] [place] [address] Jul, Cirrhosis of liver without ascites, unspecified hepatic cirrhosis type K74.60 [facility] [id number] [place] [address] Jul, [facility] [id number] [place] [address] Jul, [facility] [id number] [place] [address] Jun, Cirrhosis of liver without ascites, unspecified hepatic cirrhosis type K74.60 and Viral gastroenteritis A08.4 [facility] [id number] [place] [address] Jun, Nausea and vomiting, intractability of vomiting not specified, unspecified vomiting type R11.2 ; Acute nonintractable headache, unspecified headache type R51 and History of encephalopathy Z86.69 [facility] [id number] [place] [address] Jun, [facility] [id number] [place] [address] Jun, Neuropathy, diabetic E11.40 and Hypertension, benign I10 [facility] [id number] [place] [address] Jun, [facility] [id number] [place] [address] Jun, [facility] [id number] [place] [id number] Jun, [facility] [id number] [place] [address] Jun, [facility] [id number] [place] [address] Jun, [facility] [id number] [place] [address] Jun, Viral gastroenteritis A08.4 and Diabetes E11.9 [facility] [id number] [place] [address] May, Lumbago with sciatica, left side M54.42 [facility] [id number] [place] [address] May, Lumbago with sciatica, left side M54.42 [facility] [id number] [place] [address] May, [facility] [id number] [place] [address] May, [facility] [id number] [place] [address] Apr, Lumbago with sciatica, left side M54.42 ; Neuropathy, diabetic E11.40 and Mood disorder F39 [facility] [id number] [place] [address] Apr, [facility] [id number] [place] [address] Apr, [facility] [id number] [place] [address] Mar, Other chronic pain G89.29 and Type 2 diabetes mellitus without complications E11.9 [facility] [id number] [place] [address] Mar, Other chronic pain G89.29 [facility] [id number] [place] [address] Feb, Other chronic pain G89.29 [facility] [id number] [place] [address] January, Shoulder pain, left M25.512 and Other chronic pain G89.29 [facility] [id number] [place] [address] January, [facility] [address], [place] [address] January, 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 [facility] [address], [place] [address] January, Diabetes E11.9 [facility] [address], [place] [address] January, Diabetes E11.9 ; Chronic pain disorder G89.4 ; Lumbago with sciatica, left side M54.42 and Other acute postprocedural pain G89.18 [facility] [id number] [place] [address] Dec, 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 [facility] [id number] [place] [address] Nov, 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 [facility] [address], [place] [address] Nov, 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 [facility] [id number] [place] [address] Oct, Diabetes E11.9 [facility] [address], [place] [address] Oct, Diabetes E11.9 ; Neuropathy, diabetic E11.40 and 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 [facility] [address], [place] [address] Sep, [facility] [id number] [place] [address] Aug, Diabetes type 2, controlled E11.9 [facility] [address], [place] [address] Aug, Diabetic mononeuropathy associated with type 2 diabetes mellitus E11.41 [facility] [id number] [place] [address] Jul, [facility] [id number] [place] [address] Jul, Primary insomnia F51.01 [facility] [id number] [place] [address] Jun, [facility] [id number] [place] [address] Jun, Diabetes E11.9 ; Primary insomnia F51.01 and Depression, unspecified depression type F32.9 [facility] [id number] [place] [address] Jun, [facility] [id number] [place] [address] Jun, [facility] [id number] [place] [address] May, [facility] [id number] [place] [address] May, Mood disorder F39 [facility] [id number] [place] [address] Apr, [facility] [id number] [place] [address] Mar, Acute cystitis without hematuria N30.00 [facility] [id number], [place] [address] Feb, Diabetes E11.9 [facility] [address], [place] [address] January, [facility] [id number] [place] [address] January, [facility] [address] [place] [address] January, Acute cystitis without hematuria N30.00 ; 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 ; Fatigue, unspecified type R53.83 and Weight loss, abnormal R63.4 [facility] [id number] [place] [address] January, [facility] [id number] [place] [address] Dec, [facility] [id number] [place] [address] Nov, [facility] [address] [address] Nov, Neuropathy, diabetic E11.40 [place] [address] [address] Oct, Neuropathy, diabetic E11.40 [place] [address] [address] Oct, [place] [address] [address] Oct, [facility] [id number] [place] [address] Oct, [place] [id number] [place] [address] Aug, [place] [id number] [place] [address] Aug, Type 2 diabetes mellitus with foot ulcer E11.621 ; Nausea R11.0 ; Other complications following infusion, transfusion and therapeutic injection, initial encounter T80.89XA ; Hyperlipidemia, mixed E78.2 and Nail ingrowing L60.0 [place] [id number] [place] [address] Jul, [place] [id number] [place] [address] Jul, Diabetes E11.9 [place] [address] [address] Jul, Type 2 diabetes mellitus with foot ulcer E11.621 and Non-pressure chronic ulcer of other part of left foot with unspecified severity L97.529 [place] [id number] [place] [address] Jun, Diabetes E11.9 ; Shoulder pain, left M25.512 ; Abdominal pain, lower R10.30 ; Diabetes mellitus without mention of complication, type II or unspecified type, not stated as uncontrolled 250.00 and Hepatitis C, chronic B18.2 [place] [address] [address] Jun, Cellulitis, abdominal wall L03.311 and Nocturnal hypoxemia G47.34 [place] [id number] [place] [address] Jun, Diabetes mellitus without mention of complication, type II or unspecified type, not stated as uncontrolled 250.00 [place] [address] [address] May, Diabetes mellitus without mention of complication, type II or unspecified type, not stated as uncontrolled 250.00 [place] [id number] [place] [address] May, Abdominal pain 789.00 [place] [id number] [place] [address] May, [place] [id number] [place] [address] May, [place] [id number] [place] [address] May, Diabetes mellitus without mention of complication, type II or unspecified type, not stated as uncontrolled 250.00 [place] [id number] [place] [address] Apr, [place] [id number] [place] [address] Mar, [place] [address], [place] [address] Mar, Diabetes mellitus without mention of complication, type II or unspecified type, not stated as uncontrolled 250.00 [facility] [address], [place] [address] Feb, Diabetes mellitus without mention of complication, type II or unspecified type, not stated as uncontrolled 250.00 and Chronic pain 338.29 [facility] [address], [place] [address] Feb, [facility] [id number] [address] January, Diabetes mellitus without mention of complication, type II or unspecified type, not stated as uncontrolled 250.00 and Chronic pain 338.29 [facility] [address], [place] [address] January, [facility] [address], [place] [address] Dec, [facility] [address], [place] [address] Dec, [facility] [address], [place] [address] Oct, [facility] [id number], [place] [address] Oct, [facility] [address], [place] [address] Oct, [facility] [id number], [place] [address] Oct, [facility] [address], [place] [address] Oct, [facility] [id number], [place] [address] Oct, [facility] [id number] [address] Oct, 2014 [facility] [place] [facility] [address] [id number] [place] [address] Oct, 2014 [facility] [place] [facility] [address] [id number] [place] [address] Oct, 2014 [facility] [place] [facility] [address] [id number] [place] [address] Oct, 2014 [facility] [place] [facility] [address] [id number] [place] [address] Oct, 2014 [facility] [place] [facility] [address] [id number] [place] [address] Oct, 2014 [facility] [place] [facility] [address] [facility] [id number] [place] [address] Sep, [facility] [place] [facility] [address] [facility] [id number] [place] [address] Sep, [facility] [place] [facility] [address] [id number] [place] [address] Aug, [facility] [place] [facility] [address] [id number] [place] [address] Aug, [facility] [place] [facility] [address] [facility] [id number] [place] [address] Aug, [facility] [place] [facility] [address] [facility] [id number] [place] [address] Aug, [facility] [place] [facility] [address] [id number] [place] [address] Aug, [facility] [place] [facility] [address] [id number] [place] [address] Aug, [facility] [place] [facility] [address] [id number] [place] [address] Aug, [facility] [place] [facility] [address] [id number] [place] [address] Aug, [facility] [place] [facility] [address] [id number] [place] [address] Aug, [facility] [place] [facility] [address] [id number] [place] [address] Aug, [facility] [place] [facility] [address] [id number] [place] [address] Jul, [facility] [place] [facility] [address] [id number] [place] [address] Jul, [facility] [place] [facility] [address] [id number] [place] [address] Jun, [facility] [place] [facility] [address] [id number] [place] [address] Jun, [facility] [place] [facility] [address] [id number] [place] [address] Jun, [facility] [place] [facility] [address] [id number] [place] [address] Jun, [facility] [place] [facility] [address] [id number] [place] [address] Jun, [facility] [place] [facility] [address] [id number] [place] [address] Jun, [facility] [place] [facility] [address] [id number] [address] Jun, [facility] [place] [facility] [address] [id number], [place] [address] 30 May, 2014 [facility] [place] [facility] [address] [id number] [place] [address] 30 May, 2014 [facility] [place] [facility] [address] [id number] [place] [address] 30 May, 2014 [facility] [place] [facility] [address] [id number] [place] [address] 30 May, 2014 [facility] [place] [facility] [address] [id number] [place] [address] May, 2013 [facility] [place] [facility] [address] [id number] [place] [address] May, 2013 [facility] [place] [facility] [address] [id number] [place] [address] May, 2013 [facility] [place] [facility] [address] [id number] [place] [address] May, 2013 [facility] [place] [facility] [address] [id number] [place] [address] May, 2013 [facility] [place] [facility] [address] [id number] [place] [address] May, 2013 [facility] [place] [facility] [address] [id number] [place] [address] May, 2013 [facility] [place] [facility] [address] [id number] [place] [address] May, 2013 [facility] [place] [facility] [address] [id number] [place] [address] May, 2013 [facility] [place] [facility] [address] [id number] [place] [address] Mar, 2013 [facility] [place] [facility] [address] [id number] [place] [address] Mar, [facility] [place] [facility] [address] [id number] [place] [address] Mar, 2013 [facility] [place] [facility] [address] [id number] [place] [address] Mar, [facility] [place] [facility] [address] [id number] [place] [address] Mar, [facility] [place] [facility] [address] [id number] [place] [address] Mar, 2013 [facility] [place] [facility] [address] [id number] [place] [address] Feb, [facility] [place] [facility] [address] [id number] [place] [address] Feb, [facility] [place] [facility] [address] [id number] [place] [address] Feb, [facility] [place] [facility] [address] [id number] [place] [address] Feb, [facility] [place] [facility] [address] [id number] [place] [address] Feb, [facility] [place] [facility] [address] [id number] [place] [address] Feb, [facility] [place] [facility] [address] [id number] [place] [address] Feb, [facility] [place] [facility] [address] [id number] [place] [address] Feb, [facility] [place] [facility] [address] [id number] [place] [address] Feb, [facility] [place] [facility] [address] [id number] [place] [address] January, [facility] [place] [facility] [address] [id number] [place] [address] January, [facility] [place] [facility] [address] [id number] [place] [address] Dec, [facility] [place] [facility] [address] [id number] [place] [address] Dec, [facility] [place] [facility] [address] [id number] [place] [address] Dec, [facility] [place] [facility] [address] [id number] [place] [address] Dec, [facility] [place] [facility] [address] [id number] [place] [address] Nov, [facility] [place] [facility] [address] [id number] [place] [address] Nov, [facility] [place] [facility] [address] [id number] [place] [address] Nov, [facility] [place] [facility] [address] [id number] [place] [address] Nov, [facility] [place] [facility] [address] [id number] [place] [address] Nov, [facility] [place] [facility] [address] [id number] [place] [address] Nov, [facility] [place] [facility] [address] [id number] [place] [address] Nov, [facility] [place] [facility] [address] [id number] [place] [address] Nov, [facility] [place] [facility] [address] [id number] [place] [address] Nov, [facility] [place] [facility] [address] [id number] [place] [address] Nov, [facility] [place] [facility] [address] [id number] [place] [address] Oct, [facility] [place] [facility] [address] [id number] [place] [address] Oct, [facility] [place] [facility] [address] [id number] [place] [address] Sep, [facility] [place] [facility] [address] [id number] [place] [address] Sep, [facility] [place] [facility] [address] [id number] [place] [address] Sep, [facility] [place] [facility] [address] [id number] [place] [address] Aug, [facility] [place] [facility] [address] [id number] [place] [address] Aug, [facility] [place] [facility] [address] [id number] [place] [address] Aug, [facility] [place] [facility] [address] [address] [id number] [place] [address] Aug, [facility] [place] [facility] [address] [id number] [place] [address] Jul, [facility] [place] [facility] [address] [id number] [place] [address] Jul, [facility] [place] [facility] [address] [id number] [place] [address] Jul, [facility] [place] [facility] [address] [id number] [place] [address] Jul, [facility] [place] [facility] [address] [id number] [place] [address] Jun, [facility] [place] [facility] [address] [id number] [place] [address] Jun, [facility] [place] [facility] [address] [id number] [place] [address] Jun, [facility] [place] [facility] [address] [id number] [place] [address] Jun, [facility] [place] [facility] [address] [id number] [place] [address] Jun, [facility] [place] [facility] [address] [id number] [place] [address] Jun, [facility] [place] [facility] [address] [id number] [place] [address] Jun, [facility] [place] [facility] [address] [id number] [place] [address] Jun, [facility] [place] [facility] [address] [id number] [place] [address] May, [facility] [place] [facility] [address] [id number] [place] [address] Apr, [facility] [address] [id number] [place] [address] Mar, [facility] [place] [facility] [address] [id number] [place] [address] Mar, [facility] [place] [facility] [address] [id number] [place] [address] Feb, [facility] [place] [facility] [address] [id number] [place] [address] Feb, [facility] [place] [facility] [address] [id number] [place] [address] Feb, [facility] [place] [facility] [address] [id number] [place] [address] Dec, [facility] [place] [facility] [address] [id number] [place] [address] Dec, [facility] [place] [facility] [address] [id number] [place] [address] Dec, [facility] [place] [facility] [address] [id number] [place] [address] Nov, [facility] [place] [facility] [address] [id number] [place] [address] Oct, [facility] [place] [facility] [address] [id number] [place] [address] Oct, [facility] [place] [facility] [address] [id number] [address] Oct, [facility] [place] [facility] [address] [id number] [place] [address] Oct, [facility] [place] [facility] [address] [id number] [place] [address] Sep, [facility] [place] [facility] [address] [id number] [place] [address] Sep, [facility] [place] [facility] [address] [id number] [place] [address] 31 Aug, 2012 [facility] [address] [id number] [place] [address] 31 Aug, 2012 [facility] [address] [id number] [place] [address] Aug, [facility] [address] [id number] [place] [address] Aug, [facility] [address] [id number] [place] [address] Aug, [facility] [address] [id number] [place] [address] Aug, [facility] [address] [id number] [place] [address] 18 Aug, 2012 [facility] [address] [id number] [place] [address] 18 Aug, 2012 [facility] [address] [id number] [place] [address] 14 Aug, 2012 [facility] [address] [id number] [place] [address] 14 Aug, 2012 [facility] [address] [id number] [place] [address] 10 Aug, 2012 [facility] [place] [facility] [address] [id number] [place] [address] Aug, [facility] [place] [facility] [address] [id number] [place] [address] Jul, [facility] [place] [facility] [address] [id number] [place] [address] Jul, [facility] [place] [facility] [address] [id number] [place] [address] Jul, [facility] [place] [facility] [address] [id number] [place] [address] Jul, [facility] [place] [facility] [address] [id number] [place] [address] Jul, [facility] [place] [facility] [address] [id number] [place] [address] Jul, [facility] [place] [facility] [address] [id number] [place] [address] Jul, [facility] [place] [facility] [address] [id number] [place] [address] Jul, [facility] [place] [facility] [address] [id number] [place] [address] Jul, [facility] [place] [facility] [address] [id number] [place] [address] Jul, [facility] [place] [facility] [address] [id number] [place] [address] Jun, [facility] [place] [facility] [address] [id number] [place] [address] Jun, [facility] [place] [facility] [address] [id number] [place] [address] Jun, [facility] [place] [facility] [address] [id number] [place] [address] Jun, [facility] [place] [facility] [address] [id number] [place] [address] Apr, [facility] [place] [facility] [address] [id number], [place] [address] Mar, [facility] [place] [facility] [address] [id number] [place] [address] Mar, [facility] [place] [facility] [address] [id number] [place] [address] Mar, [facility] [place] [facility] [address] [id number] [place] [address] Mar, [facility] [place] [facility] [address] [id number], [place] [address] Mar, [facility] [place] [facility] [address] [id number] [place] [address] Feb, [facility] [place] [facility] [address] [id number] [place] [address] Feb, [facility] [place] [facility] [address] [facility] [id number] [place] [address] January, [facility] [place] [facility] [address] [id number] [place] [address] January, [facility] [place] [facility] [address] [id number] [place] [address] Nov, [facility] [place] [facility] [address] [id number] [place] [address] Nov, [facility] [place] [facility] [address] [facility] [id number] [place] [address] Nov, [facility] [place] [facility] [address] [facility] [id number] [place] [address] Nov, [facility] [place] [facility] [address] [facility] [id number] [place] [address] Nov, [facility] [place] [facility] [address] [facility] [id number] [place] [address] Oct, [facility] [place] [facility] [address] [facility] [id number], [place] [address] Jul, [facility] [place] [facility] [address] [id number], [place] [address] Jul, [facility] [place] [facility] [address] [id number] [place] [address] Jul, [facility] [place] [facility] [address] [facility] [id number] [place] [address] 24 Jun, 2011 [facility] [place] [facility] [address] [facility] [id number] [place] [address] Jun, [facility] [place] [facility] [id number], [place] [address] Dec, [facility] [id number], [place] [address] Aug, [facility] [id number], [place] [address] Aug, [facility] [id number], [place] [address] Jul, [facility] [id number], [place] [address] Jul, [facility] [id number], [place] [address] Jul, [facility] [id number], [place] [address] Jun, [facility] [id number], [place] [address] Jun, [facility] [id number], [place] [address] Jun, [facility] [id number], [place] [address] May, [facility] [address] [id number], [place] [address] Feb, [facility] [address] [id number], [place] [address] January, IMMUNIZATIONS No Known Immunizations SOCIAL HISTORY Never Assessed REASON FOR VISIT Medication question PLAN OF CARE VITAL SIGNS MEDICATIONS Medication Instructions Dosage Frequency Start Date End Date Duration Status Atorvastatin Calcium 20 mg Orally Once a day 1 tablet 24h 30 Active RESULTS No Results PROCEDURES No [...]
--- OUTSIDE RECORDS SUMMARY | 2019-04-25 17:16 | XMS REPORT ---
Author Author MYRON LOCO [facility] Address [address] [place] [address] Care Team Providers Care Mesmerist Name Role Phone MYRON LOCO Unavailable PROBLEMS Type Condition ICD9-CM Code [id number] Code Onset Dates Condition Status SNOMED Code Problem Diabetes E11.9 Active 503827178 Problem Diabetic mononeuropathy associated with type 2 diabetes mellitus E11.41 Active 388737982 Problem Depression, unspecified depression type F32.9 Active 86373890 Problem Cirrhosis of liver without ascites, unspecified hepatic cirrhosis type K74.60 Active 84560224 Problem Type 2 diabetes mellitus without complications E11.9 Active 194627757 Problem Lumbago with sciatica, left side M54.42 Active 815645467 Problem 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 Active 011369017 Problem Other chronic pain G89.29 Active 88435734 Problem Chronic pain disorder G89.4 Active 668983583 Problem Renal insufficiency N28.9 Active 196876507 Problem Alcoholic cirrhosis of liver without ascites K70.30 Active 513482413 Problem Mood disorder F39 Active 31472477 Problem History of alcohol dependence F10.21 Active 273210521 Problem Hypertension, benign I10 Active 95568604 Problem Primary insomnia F51.01 Active 957627257 Problem Hyperlipidemia, mixed E78.2 Active 060882614 Problem Spinal arthritis M46.90 Active 502725860 Problem Neuropathy, diabetic E11.40 Active 960963215 ALLERGIES No Information SOCIAL HISTORY Never Assessed [...]
--- OUTSIDE RECORDS SUMMARY | 2019-04-25 17:16 | XMS REPORT ---
Author Author MYRON LOCO Organization [facility] Address [address] [place] [address] Care Team Providers Care Non Profit Director Name Role Phone MYRON LOCO Unavailable PROBLEMS Type Condition ICD9-CM Code FEA31-PA Code Onset Dates Condition Status SNOMED Code Problem Primary insomnia F51.01 Active 926986421 Problem Hyperlipidemia, mixed E78.2 Active 315996836 Problem Hypertension, benign I10 Active 18249948 Problem Mood disorder F39 Active 42832728 Problem Precordial pain R07.2 Active 74670632 Problem Chronic obstructive pulmonary disease, unspecified COPD type J44.9 Active 07533161 Problem Depression, unspecified depression type F32.9 Active 20538417 Problem Neuropathy, diabetic E11.40 Active 117345782 Problem Cirrhosis of liver without ascites, unspecified hepatic cirrhosis type K74.60 Active 72686467 Problem Type 2 diabetes mellitus without complications E11.9 Active [id number] ALLERGIES No Information ENCOUNTERS Encounter Location Date Diagnosis [place] [id number] [place] [address] Dec, [place] [place] [id number] [place] [address] Nov, [place] [id number] [place] [address] Nov, Cirrhosis of liver without ascites, unspecified hepatic cirrhosis type K74.60 ; Type 2 diabetes mellitus without complications E11.9 and Precordial pain R07.2 [place] [address] [address] Nov, Cirrhosis of liver without ascites, unspecified hepatic cirrhosis type K74.60 [facility] [id number] [place] [address] Oct, [facility] [address] [address] Oct, Cirrhosis of liver without ascites, unspecified hepatic cirrhosis type K74.60 ; Chronic obstructive pulmonary disease, unspecified COPD type J44.9 and Influenza-like illness R69 [facility] [address] [address] Oct, [facility] [id number] [place] [address] Oct, [facility] [address] [address] Oct, Cirrhosis of liver without ascites, unspecified hepatic cirrhosis type K74.60 [facility] [address] [address] Sep, [facility] [address] [address] Sep, Chronic obstructive pulmonary disease, unspecified COPD type J44.9 [facility] [address] [address] Sep, Cirrhosis of liver without ascites, unspecified hepatic cirrhosis type K74.60 and Chronic obstructive pulmonary disease, unspecified COPD type J44.9 [facility] [address] [address] Aug, [facility] [address] [address] Aug, Cirrhosis of liver without ascites, unspecified hepatic cirrhosis type K74.60 [facility] [address] [address] Aug, [facility] [address] [address] Aug, [facility] [address] [address] Jul, [facility] [id number] [place] [address] Jul, Diabetes E11.9 and Viral gastroenteritis A08.4 [place] [address] [address] Jul, Cirrhosis of liver without ascites, unspecified hepatic cirrhosis type K74.60 and Chronic obstructive pulmonary disease, unspecified COPD type J44.9 [facility] [address] [address] Jul, [place] [address] [address] Jul, Cirrhosis of liver without ascites, unspecified hepatic cirrhosis type K74.60 [place] [id number] [place] [address] Jul, [place] [address] [address] Jul, [place] [id number] [place] [address] Jun, Cirrhosis of liver without ascites, unspecified hepatic cirrhosis type K74.60 and Viral gastroenteritis A08.4 [facility] [id number] [place] [address] Jun, Nausea and vomiting, intractability of vomiting not specified, unspecified vomiting type R11.2 ; Acute nonintractable headache, unspecified headache type R51 and History of encephalopathy Z86.69 [facility] [id number] [place] [address] Jun, [place] [address] [address] Jun, Neuropathy, diabetic E11.40 and Hypertension, benign I10 [place] [id number] [place] [address] Jun, [facility] [address] [address] Jun, [facility] [id number] [place] [id number] Jun, [facility] [id number] [place] [address] Jun, [facility] [id number] [place] [address] Jun, [facility] [id number] [place] [address] Jun, Viral gastroenteritis A08.4 and Diabetes E11.9 [facility] [id number] [place] [address] May, Lumbago with sciatica, left side M54.42 [facility] [id number] [place] [address] 14 May, 2017 Lumbago with sciatica, left side M54.42 [facility] [id number] [place] [address] May, [facility] [id number] [place] [address] May, [facility] [id number] [place] [address] Apr, Lumbago with sciatica, left side M54.42 ; Neuropathy, diabetic E11.40 and Mood disorder F39 [facility] [address] [place] [address] Apr, [facility] [address] [place] [address] Apr, [facility] [id number] [place] [address] Mar, Other chronic pain G89.29 and Type 2 diabetes mellitus without complications E11.9 [facility] [address] [place] [address] Mar, Other chronic pain G89.29 [facility] [address] [address] Feb, Other chronic pain G89.29 [facility] [address] [place] [address] January, Shoulder pain, left M25.512 and Other chronic pain G89.29 [facility] [id number] [place] [address] January, [facility] [id number] [place] [address] January, 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 [facility] [id number] [place] [address] January, Diabetes E11.9 [facility] [id number] [place] [address] January, Diabetes E11.9 ; Chronic pain disorder G89.4 ; Lumbago with sciatica, left side M54.42 and Other acute postprocedural pain G89.18 [facility] [id number] [place] [address] Dec, Drug-induced erectile dysfunction N52.2 [facility] [address] [place] [address] Nov, Drug-induced erectile dysfunction N52.2 [facility] [id number] [place] [address] Nov, Drug-induced erectile dysfunction N52.2 [facility] [address] [place] [address] Oct, Diabetes E11.9 [facility] [id number] [place] [address] Oct, Diabetes E11.9 ; Neuropathy, diabetic E11.40 and Drug-induced erectile dysfunction N52.2 [facility] [id number] [address] Sep, [facility] [id number] [address] Aug, Diabetes type 2, controlled E11.9 [facility] [id number] [place] [address] Aug, Diabetic mononeuropathy associated with type 2 diabetes mellitus E11.41 [facility] [id number] [place] [address] Jul, [facility] [id number] [place] [address] Jul, Primary insomnia F51.01 [facility] [id number] [place] [address] Jun, [facility] [id number] [place] [address] Jun, Diabetes E11.9 ; Primary insomnia F51.01 and Depression, unspecified depression type F32.9 [facility] [address] [address] Jun, [facility] [id number] [place] [address] Jun, [facility] [address] [address] May, [facility] [address] [place] [address] May, Mood disorder F39 [facility] [address] [address] Apr, [facility] [id number] [place] [address] Mar, Acute cystitis without hematuria N30.00 [facility] [address] [address] Feb, Diabetes E11.9 [facility] [address] [address] January, [facility] [id number] [place] [address] January, [facility] [id number] [place] [address] January, Acute cystitis without hematuria N30.00 ; 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 ; Fatigue, unspecified type R53.83 and Weight loss, abnormal R63.4 [facility] [id number] [place] [address] January, [facility] [id number] [place] [address] Dec, [facility] [id number] [place] [address] Nov, [facility] [address] [place] [address] Nov, Neuropathy, diabetic E11.40 [facility] [id number] [place] [address] Oct, Neuropathy, diabetic E11.40 [facility] [address] [place] [address] Oct, [facility] [id number] [place] [address] Oct, [facility] [address] [address] Oct, [facility] [id number] [place] [address] Aug, [facility] [address] [address] Aug, Type 2 diabetes mellitus with foot ulcer E11.621 ; Nausea R11.0 ; Other complications following infusion, transfusion and therapeutic injection, initial encounter T80.89XA ; Hyperlipidemia, mixed E78.2 and Nail ingrowing L60.0 [place] [address] [address] Jul, [place] [address] [address] Jul, Diabetes E11.9 [place] [address] [address] Jul, Type 2 diabetes mellitus with foot ulcer E11.621 and Non-pressure chronic ulcer of other part of left foot with unspecified severity L97.529 [place] [address] [address] Jun, Diabetes E11.9 ; Shoulder pain, left M25.512 ; Abdominal pain, lower R10.30 ; Diabetes mellitus without mention of complication, type II or unspecified type, not stated as uncontrolled 250.00 and Hepatitis C, chronic B18.2 [place] [address] [address] Jun, Cellulitis, abdominal wall L03.311 and Nocturnal hypoxemia G47.34 [place] [address] [address] Jun, Diabetes mellitus without mention of complication, type II or unspecified type, not stated as uncontrolled 250.00 [place] [id number] [place] [address] May, Diabetes mellitus without mention of complication, type II or unspecified type, not stated as uncontrolled 250.00 [place] [id number] [place] [address] May, Abdominal pain 789.00 [place] [address] [address] May, [place] [address] [address] May, [place] [address] [address] May, Diabetes mellitus without mention of complication, type II or unspecified type, not stated as uncontrolled 250.00 [facility] [address] [address] Apr, [facility] [address] [address] Mar, [facility] [address] [address] Mar, Diabetes mellitus without mention of complication, type II or unspecified type, not stated as uncontrolled 250.00 [facility] [id number] [place] [address] Feb, Diabetes mellitus without mention of complication, type II or unspecified type, not stated as uncontrolled 250.00 and Chronic pain 338.29 [facility] [address] [address] Feb, [facility] [address] [address] January, Diabetes mellitus without mention of complication, type II or unspecified type, not stated as uncontrolled 250.00 and Chronic pain 338.29 [facility] [address] [address] January, [facility] [address] [address] Dec, [facility] [address] [address] Dec, [facility] [address] [address] Oct, [facility] [address] [address] Oct, [facility] [address] [address] 16 Oct, 2014 [facility] [place] [facility] [address] [id number] [place] [address] Oct, 2014 [facility] [place] [facility] [address] [id number] [place] [address] Oct, 2014 [facility] [place] [facility] [address] [id number] [place] [address] Oct, 2014 [facility] [place] [facility] [address] [id number] [place] [address] Oct, 2014 [facility] [place] [facility] [address] [id number] [place] [address] Oct, 2014 [facility] [place] [facility] [address] [id number] [place] [address] Oct, 2014 [facility] [place] [facility] [address] [facility] [id number] [place] [address] Oct, 2014 [facility] [place] [facility] [address] [facility] [id number] [place] [address] Oct, 2014 [facility] [place] [facility] [address] [facility] [id number] [place] [address] Oct, 2014 [facility] [place] [facility] [address] [facility] [id number] [place] [address] Sep, [facility] [place] [facility] [address] [facility] [id number] [place] [address] Sep, [facility] [place] [facility] [address] [facility] [id number] [place] [address] Aug, [facility] [place] [facility] [address] [id number] [place] [address] Aug, [facility] [place] [facility] [address] [facility] [id number] [place] [address] Aug, [facility] [place] [facility] [address] [facility] [id number] [place] [address] Aug, [facility] [place] [facility] [address] [id number] [place] [address] Aug, [facility] [place] [facility] [address] [id number] [place] [address] Aug, [facility] [place] [facility] [address] [id number] [place] [address] Aug, [facility] [place] [facility] [address] [id number] [place] [address] Aug, [facility] [place] [facility] [address] [id number] [place] [address] Aug, [facility] [place] [facility] [address] [id number] [place] [address] Aug, [facility] [place] [facility] [address] [id number] [place] [address] Jul, [facility] [place] [facility] [address] [id number] [place] [address] Jul, [facility] [place] [facility] [address] [id number] [place] [address] Jun, [facility] [place] [facility] [address] [id number] [place] [address] Jun, [facility] [place] [facility] [address] [id number] [place] [address] Jun, [facility] [place] [facility] [address] [id number] [address] Jun, [facility] [place] [facility] [address] [id number] [place] [address] Jun, [facility] [place] [facility] [address] [id number] [place] [address] Jun, [facility] [place] [facility] [address] [id number] [place] [address] Jun, [facility] [place] [facility] [address] [id number] [place] [address] 30 May, 2013 [facility] [place] [facility] [address] [id number] [place] [address] 30 May, 2013 [facility] [place] [facility] [address] [id number] [place] [address] 30 May, 2013 [facility] [place] [facility] [address] [id number] [place] [address] 30 May, 2013 [facility] [place] [facility] [address] [id number] [place] [address] May, 2013 [facility] [place] [facility] [address] [id number] [place] [address] May, 2013 [facility] [place] [facility] [address] [id number] [place] [address] May, 2013 [facility] [place] [facility] [address] [id number] [place] [address] May, 2013 [facility] [place] [facility] [address] [id number] [place] [address] 24 May, 2013 [facility] [place] [facility] [address] [id number] [place] [address] May, 2013 [facility] [place] [facility] [address] [id number] [place] [address] May, 2013 [facility] [place] [facility] [address] [id number] [place] [address] May, 2013 [facility] [place] [facility] [address] [id number] [place] [address] May, 2013 [facility] [place] [facility] [address] [id number] [place] [address] Mar, 2013 [facility] [place] [facility] [address] [id number] [place] [address] Mar, 2013 [facility] [place] [facility] [address] [id number] [place] [address] Mar, 2013 [facility] [place] [facility] [address] [id number] [place] [address] Mar, [facility] [place] [facility] [address] [id number] [place] [address] Mar, [facility] [place] [facility] [address] [id number] [place] [address] Mar, [facility] [place] [facility] [address] [id number] [place] [address] Feb, [facility] [place] [facility] [address] [id number] [place] [address] Feb, [facility] [place] [facility] [address] [id number] [place] [address] Feb, [facility] [place] [facility] [address] [id number] [place] [address] Feb, [facility] [place] [facility] [address] [id number] [place] [address] Feb, [facility] [place] [facility] [address] [id number] [place] [address] Feb, [facility] [place] [facility] [address] [id number] [place] [address] Feb, [facility] [place] [facility] [address] [id number] [place] [address] Feb, [facility] [place] [facility] [address] [id number] [place] [address] Feb, [facility] [place] [facility] [address] [id number] [place] [address] January, [facility] [place] [facility] [address] [id number] [place] [address] January, [facility] [place] [facility] [address] [id number] [place] [address] Dec, [facility] [place] [facility] [address] [id number] [place] [address] Dec, [facility] [place] [facility] [address] [id number] [place] [address] Dec, [facility] [place] [facility] [address] [id number] [place] [address] Dec, [facility] [place] [facility] [address] [id number] [place] [address] Nov, [facility] [place] [facility] [address] [id number] [place] [address] Nov, [facility] [place] [facility] [address] [id number] [place] [address] Nov, [facility] [place] [facility] [address] [id number] [place] [address] Nov, [facility] [place] [facility] [address] [id number] [place] [address] Nov, [facility] [place] [facility] [address] [id number] [place] [address] Nov, [facility] [place] [facility] [address] [id number] [place] [address] Nov, [facility] [place] [facility] [address] [id number] [place] [address] Nov, [facility] [place] [facility] [address] [id number] [place] [address] Nov, [facility] [place] [facility] [address] [id number] [place] [address] Nov, [facility] [place] [facility] [address] [id number] [place] [address] Oct, [facility] [place] [facility] [address] [id number] [place] [address] Oct, [facility] [place] [facility] [address] [id number] [place] [address] Sep, [facility] [place] [facility] [address] [id number] [place] [address] Sep, [facility] [address] [id number] [place] [address] Sep, [facility] [place] [facility] [address] [id number] [place] [address] Aug, [facility] [place] [facility] [address] [id number] [place] [address] Aug, [facility] [place] [facility] [address] [id number] [place] [address] Aug, [facility] [place] [facility] [address] [id number] [place] [address] Aug, [facility] [place] [facility] [address] [id number] [place] [address] Jul, [facility] [place] [facility] [address] [id number] [place] [address] Jul, [facility] [place] [facility] [address] [id number] [place] [address] Jul, [facility] [place] [facility] [address] [id number] [place] [address] Jul, [facility] [place] [facility] [address] [facility] [id number] [place] [address] Jun, [facility] [place] [facility] [address] [id number] [place] [address] Jun, [facility] [place] [facility] [address] [id number] [address] Jun, [facility] [place] [facility] [address] [id number] [place] [address] Jun, [facility] [place] [facility] [address] [id number] [place] [address] Jun, [facility] [place] [facility] [address] [id number] [address] Jun, [facility] [place] [facility] [address] [id number] [place] [address] Jun, [facility] [address] [id number] [place] [address] Jun, [facility] [place] [facility] [address] [id number] [place] [address] May, [facility] [place] [facility] [address] [id number] [place] [address] Apr, [facility] [place] [facility] [address] [id number] [place] [address] Mar, [facility] [place] [facility] [address] [id number] [place] [address] Mar, [facility] [address] [id number] [place] [address] Feb, [facility] [place] [facility] [address] [id number] [place] [address] Feb, [facility] [place] [facility] [address] [id number] [place] [address] Feb, [facility] [place] [facility] [address] [id number] [place] [address] Dec, [facility] [place] [facility] [address] [id number] [place] [address] Dec, [facility] [place] [facility] [address] [id number] [place] [address] Dec, [facility] [place] [facility] [address] [id number] [place] [address] Nov, [facility] [place] [facility] [address] [id number] [place] [address] Oct, [facility] [place] [facility] [address] [id number] [place] [address] Oct, [facility] [place] [facility] [address] [id number] [place] [address] 13 Oct, 2012 [facility] [address] [id number] [place] [address] 08 Oct, 2012 [facility] [address] [id number] [place] [address] Sep, [facility] [address] [id number] [place] [address] Sep, [facility] [address] [id number] [place] [address] Aug, [facility] [address] [id number] [place] [address] Aug, [facility] [address] [id number] [place] [address] Aug, [facility] [address] [id number] [place] [address] Aug, [facility] [address] [id number] [place] [address] Aug, [facility] [address] [id number] [place] [address] Aug, [facility] [address] [id number] [place] [address] Aug, [facility] [address] [id number] [place] [address] 18 Aug, 2012 [facility] [place] [facility] [address] [id number] [place] [address] 14 Aug, 2012 [facility] [place] [facility] [address] [id number] [place] [address] 14 Aug, 2012 [facility] [place] [facility] [address] [id number] [place] [address] 10 Aug, 2012 [facility] [place] [facility] [address] [facility] [id number] [place] [address] 10 Aug, 2012 [facility] [place] [facility] [address] [id number] [place] [address] 30 Jul, 2012 [facility] [place] [facility] [address] [id number] [place] [address] Jul, [facility] [place] [facility] [address] [id number] [place] [address] Jul, [facility] [place] [facility] [address] [id number] [place] [address] Jul, [facility] [place] [facility] [address] [id number] [place] [address] Jul, [facility] [place] [facility] [address] [id number] [place] [address] Jul, [facility] [place] [facility] [address] [id number] [place] [address] Jul, [facility] [place] [facility] [address] [id number] [place] [address] Jul, [facility] [place] [facility] [address] [id number] [place] [address] Jul, [facility] [place] [facility] [address] [id number] [place] [address] Jul, [facility] [place] [facility] [address] [facility] [id number] [place] [address] Jun, [facility] [place] [facility] [address] [id number] [place] [address] Jun, [facility] [place] [facility] [address] [id number] [place] [address] Jun, [facility] [place] [facility] [address] [id number] [place] [address] Jun, [facility] [place] [facility] [address] [id number] [place] [address] Apr, [facility] [place] [facility] [address] [id number] [place] [address] Mar, [facility] [place] [facility] [address] [id number] [place] [address] Mar, [facility] [place] [facility] [address] [id number] [place] [address] Mar, [facility] [place] [facility] [address] [id number] [place] [address] Mar, [facility] [place] [facility] [address] [id number] [place] [address] Mar, [facility] [place] [facility] [address] [id number] [place] [address] Feb, [facility] [place] [facility] [address] [id number] [place] [address] Feb, [facility] [place] [facility] [address] [id number] [place] [address] January, [facility] [place] [facility] [address] [id number] [place] [address] January, [facility] [place] [facility] [address] [id number] [place] [address] Nov, [facility] [place] [facility] [address] [id number] [place] [address] Nov, [facility] [place] [facility] [address] [id number] [place] [address] Nov, [facility] [place] [facility] [address] [id number] [place] [address] Nov, [facility] [place] [facility] [address] [id number] [place] [address] Nov, [facility] [place] [facility] [address] [id number] [place] [address] Oct, [facility] [place] [facility] [address] [id number] [place] [address] Jul, [facility] [place] [facility] [address] [id number] [place] [address] 09 Jul, 2011 [facility] [address] [id number] [place] [address] Jul, [facility] [address] [facility] [id number] [place] [address] 24 Jun, 2011 [facility] [address] [facility] [id number] [place] [address] Jun, [facility] [address] [id number] [place] [address] Dec, [facility] [address] [facility] [id number] [place] [address] Aug, [facility] [address] [facility] [id number] [place] [address] Aug, [facility] [address] [facility] [id number] [place] [address] Jul, [facility] [address] [facility] [id number] [place] [address] Jul, [facility] [address] [facility] [id number] [place] [address] Jul, [facility] [address] [facility] [id number] [address] Jun, [facility] [address] [facility] [id number] [address] 13 Jun, 2010 [facility] [address] [facility] [id number] [place] [address] Jun, [facility] [address] [facility] [id number] [place] [address] 15 May, 2010 [facility] [address] [facility] [id number] [address] Feb, [facility] [address] [facility] [id number] [place] [address] January, IMMUNIZATIONS No Known Immunizations SOCIAL HISTORY Never Assessed REASON FOR VISIT Controlled Med Refill PLAN OF CARE VITAL SIGNS MEDICATIONS Medication Instructions Dosage Frequency Start Date End Date Duration Status MS Contin 30 MG Orally every 12 hrs 1 tablet 12h Mar, 28 days Active RESULTS No Results PROCEDURES [...]
[2019-04-25 17:17] LABS: BASOPHILS % (AUTO) 0 % (0-10); EOSINOPHILS # (AUTO) 0.2 10^3/uL (0.0-0.3); EOSINOPHILS % (AUTO) 3 % (0-10); HEMATOCRIT 36 % (40-54); HEMOGLOBIN 12.4 G/DL (13.3-17.7); LYMPHOCYTES # (AUTO) 2.1 X 10^3 (1.0-4.0); LYMPHOCYTES % (AUTO) 27 % (12-44); MEAN CORPUSCULAR HEMOGLOBIN 34 PG (25-34); MEAN CORPUSCULAR HGB CONC 34 G/DL (32-36); MEAN CORPUSCULAR VOLUME 100 FL (80-99); MEAN PLATELET VOLUME 10.4 FL (7.4-10.4); MONOCYTES % (AUTO) 13 % (0-12); NEUTROPHILS # (AUTO) 4.4 X 10^3 (1.8-7.8); NEUTROPHILS % (AUTO) 57 % (42-75); PLATELET COUNT 193 10^3/uL (130-400); RED CELL DISTRIBUTION WIDTH 14.4 % (10.0-14.5); WHITE BLOOD COUNT 7.7 10^3/uL (4.3-11.0)
--- OUTSIDE RECORDS SUMMARY | 2019-04-25 17:17 | XMS REPORT ---
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 Name Role Phone MYRON LOCO Unavailable PROBLEMS Type Condition ICD9-CM Code WGX89-ST Code Onset Dates Condition Status SNOMED Code Problem Hypertension, benign I10 Active 43025633 Problem Neuropathy, diabetic E11.40 Active 130983813 Problem Hyperlipidemia, mixed E78.2 Active 101414604 Problem Mood disorder F39 Active 02842748 Problem Primary insomnia F51.01 Active 936618615 Problem Diabetes E11.9 Active 513358374 Problem Precordial pain R07.2 Active 79163482 Problem Type 2 diabetes mellitus without complications E11.9 Active 810159757 Problem Depression, unspecified depression type F32.9 Active 08355900 Problem Chronic obstructive pulmonary disease, unspecified COPD type J44.9 Active 07815033 Problem Cirrhosis of liver without ascites, unspecified hepatic cirrhosis type K74.60 Active 52102963 ALLERGIES Substance Reaction Event Type Date Status Tylenol liver problems Drug Allergy Jun, Active Aspirin liver problems Drug Allergy Jun, Active ENCOUNTERS Encounter Location Date Diagnosis [facility] [id number], [place] [address] January, Diabetes E11.9 [facility] [id number] [place] [address] Dec, Diabetes E11.9 ; Mood disorder F39 ; Hyperlipidemia, mixed E78.2 ; Precordial pain R07.2 and Type 2 diabetes mellitus without complications E11.9 [facility] [address], [place] [address] Dec, [facility] [address], [place] [address] Nov, [facility] [id number], [place] [address] Nov, Cirrhosis of liver without ascites, unspecified hepatic cirrhosis type K74.60 ; Type 2 diabetes mellitus without complications E11.9 ; Precordial pain R07.2 and BMI 40.0-44.9, adult Z68.41 [facility] [id number] [place] [address] Nov, Cirrhosis of liver without ascites, unspecified hepatic cirrhosis type K74.60 [facility] [id number] [place] [address] Oct, [facility] [id number] [place] [address] Oct, Cirrhosis of liver without ascites, unspecified hepatic cirrhosis type K74.60 ; Chronic obstructive pulmonary disease, unspecified COPD type J44.9 and Influenza-like illness R69 [facility] [id number] [place] [address] Oct, [facility] [id number] [place] [address] Oct, [facility] [id number] [place] [address] Oct, Cirrhosis of liver without ascites, unspecified hepatic cirrhosis type K74.60 [facility] [id number], [place] [address] Sep, [facility] [id number] [place] [address] Sep, Chronic obstructive pulmonary disease, unspecified COPD type J44.9 [facility] [id number] [place] [address] Sep, Cirrhosis of liver without ascites, unspecified hepatic cirrhosis type K74.60 and Chronic obstructive pulmonary disease, unspecified COPD type J44.9 [facility] [id number] [place] [address] Aug, [facility] [address], [place] [address] Aug, Cirrhosis of liver without ascites, unspecified hepatic cirrhosis type K74.60 [facility] [address], [place] [address] Aug, [facility] [id number] [place] [address] Aug, [facility] [id number] [place] [address] Jul, [facility] [id number] [place] [address] Jul, Diabetes E11.9 and Viral gastroenteritis A08.4 [facility] [id number] [place] [address] Jul, Cirrhosis of liver without ascites, unspecified hepatic cirrhosis type K74.60 and Chronic obstructive pulmonary disease, unspecified COPD type J44.9 [facility] [id number] [place] [address] Jul, [facility] [id number] [place] [address] Jul, Cirrhosis of liver without ascites, unspecified hepatic cirrhosis type K74.60 [facility] [address], [place] [address] Jul, [facility] [address], [place] [address] Jul, [facility] [address], [place] [address] Jun, Cirrhosis of liver without ascites, unspecified hepatic cirrhosis type K74.60 and Viral gastroenteritis A08.4 [facility] [address], [place] [address] Jun, Nausea and vomiting, intractability of vomiting not specified, unspecified vomiting type R11.2 ; Acute nonintractable headache, unspecified headache type R51 and History of encephalopathy Z86.69 [facility] [id number] [place] [address] Jun, [facility] [id number] [place] [address] Jun, Neuropathy, diabetic E11.40 and Hypertension, benign I10 [facility] [address] [address] Jun, [facility] [id number] [place] [address] Jun, [facility] [address] [id number] Jun, [facility] [address] [address] Jun, [facility] [address] [address] Jun, [facility] [id number] [place] [address] Jun, Viral gastroenteritis A08.4 and Diabetes E11.9 [facility] [id number] [place] [address] May, Lumbago with sciatica, left side M54.42 [facility] [id number] [place] [address] 14 May, 2017 Lumbago with sciatica, left side M54.42 [facility] [id number] [place] [address] May, [facility] [id number] [place] [address] May, [facility] [id number] [place] [address] Apr, Lumbago with sciatica, left side M54.42 ; Neuropathy, diabetic E11.40 and Mood disorder F39 [facility] [address], [place] [address] Apr, [facility] [address], [place] [address] Apr, [facility] [address], [place] [address] Mar, Other chronic pain G89.29 and Type 2 diabetes mellitus without complications E11.9 [facility] [id number], [place] [address] Mar, Other chronic pain G89.29 [facility] [id number] [place] [address] Feb, Other chronic pain G89.29 [facility] [id number], [place] [address] January, Shoulder pain, left M25.512 and Other chronic pain G89.29 [facility] [address], [place] [address] January, [facility] [id number] [place] [address] January, Drug-induced erectile dysfunction N52.2 [facility] [address], [place] [address] January, Diabetes E11.9 [facility] [address], [place] [address] January, Diabetes E11.9 ; Chronic pain disorder G89.4 ; Lumbago with sciatica, left side M54.42 and Other acute postprocedural pain G89.18 [facility] [address], [place] [address] Dec, Drug-induced erectile dysfunction N52.2 [facility] [address], [place] [address] Nov, Drug-induced erectile dysfunction N52.2 [facility] [id number] [place] [address] Nov, Drug-induced erectile dysfunction N52.2 [facility] [id number] [place] [address] Oct, Diabetes E11.9 [facility] [id number] [place] [address] Oct, Diabetes E11.9 ; Neuropathy, diabetic E11.40 and Drug-induced erectile dysfunction N52.2 [facility] [id number] [place] [address] Sep, [facility] [id number] [place] [address] Aug, Diabetes type 2, controlled E11.9 [facility] [id number] [place] [address] Aug, Diabetic mononeuropathy associated with type 2 diabetes mellitus E11.41 [facility] [id number] [place] [address] Jul, [facility] [id number] [place] [address] Jul, Primary insomnia F51.01 [facility] [id number] [place] [address] Jun, [facility] [id number] [place] [address] Jun, Diabetes E11.9 ; Primary insomnia F51.01 and Depression, unspecified depression type F32.9 [facility] [id number] [place] [address] Jun, [facility] [id number] [place] [address] Jun, [facility] [address] [address] May, [facility] [address], [place] [address] May, Mood disorder F39 [facility] [id number] [place] [address] Apr, [facility] [id number] [place] [address] Mar, Acute cystitis without hematuria N30.00 [facility] [id number] [place] [address] Feb, Diabetes E11.9 [facility] [id number] [place] [address] January, [facility] [id number] [place] [address] January, [facility] [id number] [place] [address] January, Acute cystitis without hematuria N30.00 ; 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 ; Fatigue, unspecified type R53.83 and Weight loss, abnormal R63.4 [facility] [id number] [place] [address] January, [facility] [address], [place] [address] Dec, [facility] [id number] [place] [address] Nov, [facility] [id number] [place] [address] Nov, Neuropathy, diabetic E11.40 [facility] [id number] [place] [address] Oct, Neuropathy, diabetic E11.40 [facility] [address], [place] [address] Oct, [place] [place] [id number] [place] [address] Oct, [place] [id number] [place] [address] Oct, [place] [id number] [place] [address] Aug, [place] [address] [address] Aug, Type 2 diabetes mellitus with foot ulcer E11.621 ; Nausea R11.0 ; Other complications following infusion, transfusion and therapeutic injection, initial encounter T80.89XA ; Hyperlipidemia, mixed E78.2 and Nail ingrowing L60.0 [place] [id number] [place] [address] Jul, [place] [address] [address] Jul, Diabetes E11.9 [place] [id number] [place] [address] Jul, Type 2 diabetes mellitus with foot ulcer E11.621 and Non-pressure chronic ulcer of other part of left foot with unspecified severity L97.529 [place] [id number] [place] [address] Jun, Diabetes E11.9 ; Shoulder pain, left M25.512 ; Abdominal pain, lower R10.30 ; Hepatitis C, chronic B18.2 and Diabetes mellitus without mention of complication, type II or unspecified type, not stated as uncontrolled 250.00 [place] [id number] [place] [address] Jun, Cellulitis, abdominal wall L03.311 and Nocturnal hypoxemia G47.34 [place] [id number] [place] [address] Jun, Diabetes mellitus without mention of complication, type II or unspecified type, not stated as uncontrolled 250.00 [place] [address], [place] [address] May, Diabetes mellitus without mention of complication, type II or unspecified type, not stated as uncontrolled 250.00 [facility] [id number] [place] [address] May, Abdominal pain 789.00 [facility] [id number] [place] [address] May, [facility] [id number] [place] [address] May, [facility] [id number] [place] [address] May, Diabetes mellitus without mention of complication, type II or unspecified type, not stated as uncontrolled 250.00 [facility] [id number] [place] [address] Apr, [facility] [id number] [place] [address] Mar, [facility] [id number] [place] [address] Mar, Diabetes mellitus without mention of complication, type II or unspecified type, not stated as uncontrolled 250.00 [facility] [address] [place] [address] Feb, Diabetes mellitus without mention of complication, type II or unspecified type, not stated as uncontrolled 250.00 and Chronic pain 338.29 [facility] [id number] [place] [address] Feb, [facility] [id number] [place] [address] January, Diabetes mellitus without mention of complication, type II or unspecified type, not stated as uncontrolled 250.00 and Chronic pain 338.29 [facility] [address] [place] [address] January, [facility] [place] [facility] [address] [id number] [place] [address] Dec, [facility] [place] [facility] [address] [id number] [place] [address] Dec, [facility] [place] [facility] [address] [facility] [id number] [place] [address] Oct, 2014 [facility] [place] [facility] [address] [id number] [place] [address] Oct, 2014 [facility] [place] [facility] [address] [id number] [place] [address] Oct, 2014 [facility] [place] [facility] [address] [facility] [id number] [place] [address] Oct, 2014 [facility] [place] [facility] [address] [facility] [id number] [place] [address] Oct, 2014 [facility] [place] [facility] [address] [facility] [id number] [place] [address] Oct, 2014 [facility] [place] [facility] [address] [facility] [id number] [place] [address] Oct, 2014 [facility] [place] [facility] [address] [facility] [id number] [place] [address] Oct, 2014 [facility] [place] [facility] [address] [facility] [id number] [place] [address] Oct, 2014 [facility] [place] [facility] [address] [facility] [id number] [place] [address] Oct, 2014 [facility] [place] [facility] [address] [facility] [id number] [place] [address] Oct, 2014 [facility] [place] [facility] [address] [facility] [id number] [place] [address] Oct, 2014 [facility] [place] [facility] [address] [facility] [id number] [place] [address] Sep, [facility] [place] [facility] [address] [id number] [place] [address] Sep, [facility] [place] [facility] [address] [id number] [place] [address] Aug, [facility] [place] [facility] [address] [id number] [place] [address] Aug, [facility] [place] [facility] [address] [id number] [place] [address] Aug, [facility] [place] [facility] [address] [id number] [place] [address] Aug, [facility] [place] [facility] [address] [id number] [place] [address] Aug, [facility] [place] [facility] [address] [id number] [place] [address] Aug, [facility] [place] [facility] [address] [id number] [place] [address] Aug, [facility] [place] [facility] [address] [id number] [place] [address] Aug, [facility] [place] [facility] [address] [id number] [place] [address] Aug, [facility] [place] [facility] [address] [facility] [id number] [place] [address] Aug, [facility] [place] [facility] [address] [id number] [place] [address] Jul, [facility] [place] [facility] [address] [id number] [place] [address] Jul, [facility] [place] [facility] [address] [id number] [place] [address] Jun, [facility] [place] [facility] [address] [id number] [place] [address] Jun, [facility] [place] [facility] [address] [id number] [place] [address] 15 Jun, 2014 [facility] [place] [facility] [address] [id number] [place] [address] 15 Jun, 2014 [facility] [place] [facility] [address] [id number] [place] [address] 14 Jun, 2014 [facility] [place] [facility] [address] [id number] [place] [address] 03 Jun, 2014 [facility] [place] [facility] [address] [id number] [place] [address] 03 Jun, 2014 [facility] [place] [facility] [address] [id number] [place] [address] 30 Sep, 2013 [facility] [place] [facility] [address] [id number] [place] [address] 30 May, 2013 [facility] [place] [facility] [address] [id number] [place] [address] 30 May, 2013 [facility] [place] [facility] [address] [id number] [place] [address] 30 May, 2013 [facility] [place] [facility] [address] [id number] [place] [address] 26 May, 2013 [facility] [place] [facility] [address] [id number] [place] [address] 26 May, 2013 [facility] [place] [facility] [address] [id number], [place] [address] 26 Sep, 2013 [facility] [place] [facility] [address] [id number], [place] [address] 26 May, 2013 [facility] [place] [facility] [address] [id number] [place] [address] 24 May, 2013 [facility] [place] [facility] [address] [id number] [place] [address] 02 May, 2013 [facility] [place] [facility] [address] [id number] [place] [address] 02 May, 2013 [facility] [place] [facility] [address] [id number] [place] [address] May, [facility] [place] [facility] [address] [id number] [place] [address] May, [facility] [place] [facility] [address] [id number] [place] [address] Mar, [facility] [place] [facility] [address] [id number] [place] [address] Mar, [facility] [place] [facility] [address] [id number] [place] [address] Mar, [facility] [place] [facility] [address] [id number] [place] [address] Mar, [facility] [place] [facility] [address] [id number] [place] [address] Mar, [facility] [place] [facility] [address] [id number] [place] [address] Mar, [facility] [place] [facility] [address] [id number] [place] [address] Feb, [facility] [place] [facility] [address] [id number] [place] [address] Feb, [facility] [place] [facility] [address] [id number] [place] [address] Feb, [facility] [place] [facility] [address] [id number] [place] [address] Feb, [facility] [place] [facility] [address] [id number] [place] [address] Feb, [facility] [place] [facility] [address] [id number] [place] [address] Feb, [facility] [place] [facility] [address] [id number] [place] [address] Feb, [facility] [place] [facility] [address] [id number] [place] [address] Feb, [facility] [place] [facility] [address] [id number] [place] [address] Feb, [facility] [place] [facility] [address] [id number] [place] [address] January, [facility] [place] [facility] [address] [id number] [place] [address] January, [facility] [place] [facility] [address] [id number] [place] [address] Dec, [facility] [place] [facility] [address] [id number] [place] [address] Dec, [facility] [place] [facility] [address] [id number] [place] [address] Dec, [facility] [place] [facility] [address] [id number] [place] [address] Dec, [facility] [place] [facility] [address] [id number] [place] [address] Nov, [facility] [place] [facility] [address] [id number] [place] [address] Nov, [facility] [place] [facility] [address] [id number] [place] [address] Nov, [facility] [place] [facility] [address] [id number] [place] [address] Nov, [facility] [place] [facility] [address] [id number] [place] [address] Nov, [facility] [place] [facility] [address] [id number] [place] [address] Nov, [facility] [place] [facility] [address] [id number] [place] [address] Nov, [facility] [place] [facility] [address] [id number] [place] [address] Nov, [facility] [place] [facility] [address] [id number] [place] [address] Nov, [facility] [place] [facility] [address] [id number] [place] [address] Nov, [facility] [place] [facility] [address] [id number] [place] [address] Oct, [facility] [place] [facility] [address] [id number] [place] [address] Oct, [facility] [place] [facility] [address] [id number] [place] [address] Sep, [facility] [place] [facility] [address] [id number] [place] [address] Sep, [facility] [place] [facility] [address] [id number] [place] [address] Sep, [facility] [place] [facility] [address] [id number] [place] [address] Aug, [facility] [place] [facility] [address] [id number] [place] [address] Aug, [facility] [place] [facility] [address] [id number] [place] [address] Aug, [facility] [place] [facility] [address] [id number] [place] [address] Aug, [facility] [place] [facility] [address] [id number], [place] [address] Jul, [facility] [place] [facility] [address] [id number], [place] [address] Jul, [facility] [place] [facility] [address] [id number] [place] [address] Jul, [facility] [place] [facility] [address] [id number] [place] [address] Jul, [facility] [place] [facility] [address] [id number] [place] [address] Jun, [facility] [place] [facility] [address] [id number] [place] [address] 30 Jun, 2013 [facility] [address] [id number] [place] [address] Jun, [facility] [place] [facility] [address] [id number] [place] [address] Jun, [facility] [address] [id number] [place] [address] Jun, [facility] [place] [facility] [address] [id number] [place] [address] Jun, [facility] [address] [address] [id number] [place] [address] Jun, [facility] [place] [facility] [address] [id number] [place] [address] Jun, [facility] [place] [facility] [address] [id number] [place] [address] May, [facility] [address] [id number] [place] [address] Apr, [facility] [place] [facility] [address] [id number] [place] [address] Mar, [facility] [place] [facility] [address] [id number] [place] [address] Mar, [facility] [place] [facility] [address] [id number] [place] [address] Feb, [facility] [place] [facility] [address] [id number] [place] [address] 18 Feb, 2013 [facility] [place] [facility] [address] [id number] [place] [address] Feb, [facility] [place] [facility] [address] [id number] [place] [address] 24 Dec, 2012 [facility] [place] [facility] [address] [id number] [place] [address] Dec, [facility] [address] [id number] [place] [address] Dec, [facility] [place] [facility] [address] [id number] [place] [address] Nov, [facility] [address] [id number] [place] [address] Oct, [facility] [place] [facility] [address] [id number] [place] [address] Oct, [facility] [address] [id number] [place] [address] Oct, [facility] [address] [id number] [place] [address] 08 Oct, 2012 [facility] [address] [id number] [place] [address] Sep, [facility] [place] [facility] [address] [id number] [place] [address] Sep, [facility] [address] [id number] [place] [address] Aug, [facility] [place] [facility] [address] [id number] [place] [address] Aug, [facility] [address] [id number] [place] [address] Aug, [facility] [place] [facility] [address] [id number] [place] [address] Aug, [facility] [place] [facility] [address] [id number] [place] [address] Aug, [facility] [place] [facility] [address] [id number] [place] [address] Aug, [facility] [place] [facility] [address] [id number] [place] [address] Aug, [facility] [place] [facility] [address] [id number] [place] [address] 18 Aug, 2012 [facility] [place] [facility] [address] [id number] [place] [address] 14 Aug, 2012 [facility] [place] [facility] [address] [id number] [place] [address] 14 Aug, 2012 [facility] [place] [facility] [address] [id number] [place] [address] 10 Aug, 2012 [facility] [place] [facility] [address] [id number] [place] [address] 10 Aug, 2012 [facility] [place] [facility] [address] [id number] [place] [address] 30 Jul, 2012 [facility] [place] [facility] [address] [id number] [place] [address] 30 Jul, 2012 [facility] [place] [facility] [address] [id number] [place] [address] 26 Jul, 2012 [facility] [place] [facility] [address] [id number] [place] [address] 26 Jul, 2012 [facility] [place] [facility] [address] [id number] [place] [address] 20 Jul, 2012 [facility] [place] [facility] [address] [facility] [id number] [place] [address] 20 Jul, 2012 [facility] [place] [facility] [address] [id number] [place] [address] 19 Jul, 2012 [facility] [place] [facility] [address] [id number] [place] [address] 19 Jul, 2012 [facility] [place] [facility] [address] [id number] [place] [address] 16 Jul, 2012 [facility] [place] [facility] [address] [facility] [id number] [place] [address] 16 Jul, 2012 [facility] [place] [facility] [address] [id number] [place] [address] Jun, [facility] [place] [facility] [address] [id number] [place] [address] Jun, [facility] [place] [facility] [address] [id number] [place] [address] Jun, [facility] [place] [facility] [address] [id number] [place] [address] Jun, [facility] [place] [facility] [address] [id number] [place] [address] Apr, [facility] [address] [id number] [place] [address] Mar, [facility] [place] [facility] [address] [id number] [place] [address] Mar, [facility] [address] [id number] [place] [address] Mar, [facility] [place] [facility] [address] [id number] [place] [address] Mar, [facility] [place] [facility] [address] [id number] [place] [address] Mar, [facility] [place] [facility] [address] [id number] [place] [address] Feb, [facility] [place] [facility] [address] [id number] [place] [address] Feb, [facility] [place] [facility] [address] [id number] [place] [address] January, [facility] [place] [facility] [address] [id number] [place] [address] January, [facility] [place] [facility] [address] [id number] [place] [address] Nov, [facility] [place] [facility] [address] [id number] [place] [address] Nov, [facility] [place] [facility] [address] [id number], [place] [address] 16 Nov, 2011 [facility] [place] [facility] [address] [id number] [place] [address] Nov, [facility] [place] [facility] [address] [id number] [place] [address] Nov, [facility] [place] [facility] [address] [id number] [place] [address] Oct, [facility] [place] [facility] [address] [id number] [place] [address] Jul, [facility] [place] [facility] [address] [id number] [place] [address] Jul, [facility] [place] [facility] [address] [id number] [place] [address] Jul, [facility] [place] [facility] [address] [id number] [place] [address] Jun, [facility] [place] [facility] [address] [id number] [place] [address] Jun, [facility] [place] [facility] [address] [id number] [place] [address] Dec, [facility] [place] [facility] [address] [id number] [place] [address] Aug, [facility] [place] [facility] [address] [id number] [place] [address] Aug, [facility] [place] [facility] [address] [id number] [place] [address] Jul, [facility] [place] [facility] [address] [id number] [place] [address] Jul, [facility] [place] [facility] [address] [id number] [place] [address] Jul, [facility] [place] [facility] [address] [id number] [place] [address] Jun, [facility] [place] [facility] [address] [facility] [id number] [place] [address] Jun, [facility] [address] [facility] [id number], [place] [address] Jun, [facility] [address] [facility] [id number], [place] [address] May, [facility] [address] [facility] [id number], [place] [address] Feb, [facility] [address] [facility] [id number], [place] [address] January, IMMUNIZATIONS Vaccine Route Administration Date Status PHENERGAN 50MG/ML IM Intramuscular Jul 03, 2017 Administered SOCIAL HISTORY Never Assessed REASON FOR VISIT Xochitl Bedolla robert--Julita Pérez MA PLAN OF CARE VITAL SIGNS Height 69 in 2017-07-03 Weight 233.7 lbs 2017-07-03 Temperature 99.2 degrees Fahrenheit 2017-07-03 Heart Rate 80 bpm 2017-07-03 Respiratory Rate 22 2017-07-03 BMI 34.51 kg/m2 2017-07-03 Blood pressure systolic 138 mmHg 2017-07-03 Blood pressure diastolic 80 mmHg 2017-07-03 MEDICATIONS Medication Instructions Dosage Frequency Start Date End Date Duration Status Baclofen 20 mg Orally every 8 hrs 1 tablet with food or milk 8h Jun, Sep, 30 day(s) Active Zofran 4 MG Orally 3 times a day 1 tablet 8h Jun, 30 day(s) Active Atorvastatin Calcium 20 mg Orally Once a day 1 tablet 24h 30 Active BD Pen Needle Short U/F 31G X 8 MM SQ 5 times a day as directed May, Active Omeprazole 20 mg TAKE 1 CAPSULE DAILY 30 Active NovoLog Flexpen 100 UNIT/ML Subcutaneous 3 times a day ac meals 40 units Active Omeprazole 20 TAKE 1 CAPSULE DAILY 30 Active Nabumetone 500 MG Orally Twice a day 1 tablet 12h Jun, Jul, 30 day(s) Active Ondansetron 4 MG Orally every 8 hrs 1 tablet on the tongue and allow to dissolve 8h Active Levemir FlexTouch 100 UNIT/ML Subcutaneous twice a day 60 units 12h daily Active Metoprolol Tartrate 50 MG Orally Twice a day 1 tablet with food 12h Jun, 30 day(s) Active Ativan 1 MG Orally Once a day, at night 1 tablet as needed May, 28 days Active RESULTS Name Result Date Reference Range A1C (IN HOUSE) 2017-07-03 A1C IN HOUSE 8.1 4.3 - 5.6 % Previous A1c 6.7 Lot [id number] Exp date 01/2019 PROCEDURES Procedure Date Ordered Result Body Site GLYCATED HEMOGLOBIN TEST Jul 03, 2017 [facility] VISIT ESTABLISHED PATIENT Jul 03, 2017 PHENERGAN 50MG/ML Jul 03, 2017 THER/PROPH/DIAG INJ, SC/IM Jul 03, 2017 INSTRUCTIONS MEDICATIONS ADMINISTERED No Known Medications [...]
--- OUTSIDE RECORDS SUMMARY | 2019-04-25 17:18 | XMS REPORT ---
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 Mep Name Role Phone MYRON LOCO Unavailable PROBLEMS Type Condition ICD9-CM Code LWL63-OZ Code Onset Dates Condition Status SNOMED Code Problem Primary insomnia F51.01 Active 160327612 Problem Hyperlipidemia, mixed E78.2 Active 203635825 Problem Hypertension, benign I10 Active 87777714 Problem Mood disorder F39 Active 26674999 Problem Precordial pain R07.2 Active 46263954 Problem Chronic obstructive pulmonary disease, unspecified COPD type J44.9 Active 19846619 Problem Depression, unspecified depression type F32.9 Active 27633241 Problem Neuropathy, diabetic E11.40 Active 619399778 Problem Cirrhosis of liver without ascites, unspecified hepatic cirrhosis type K74.60 Active 34979882 Problem Type 2 diabetes mellitus without complications E11.9 Active 872203825 ALLERGIES No Information ENCOUNTERS Encounter Location Date Diagnosis [facility] [id number] [place] [address] Dec, [facility] [id number] [place] [address] Dec, [facility] [id number] [place] [address] Nov, [facility] [id number] [place] [address] Nov, Cirrhosis of liver without ascites, unspecified hepatic cirrhosis type K74.60 ; Type 2 diabetes mellitus without complications E11.9 and Precordial pain R07.2 [facility] [id number] [place] [address] 07 Nov, 2017 Cirrhosis of liver without ascites, unspecified hepatic cirrhosis type K74.60 [facility] [address] [address] Oct, [facility] [address] [place] [address] Oct, Cirrhosis of liver without ascites, unspecified hepatic cirrhosis type K74.60 ; Chronic obstructive pulmonary disease, unspecified COPD type J44.9 and Influenza-like illness R69 [facility] [address], [place] [address] Oct, [facility] [address] [address] Oct, [facility] [id number] [address] Oct, Cirrhosis of liver without ascites, unspecified hepatic cirrhosis type K74.60 [facility] [address] [address] Sep, [facility] [address] [address] Sep, Chronic obstructive pulmonary disease, unspecified COPD type J44.9 [facility] [address] [address] Sep, Cirrhosis of liver without ascites, unspecified hepatic cirrhosis type K74.60 and Chronic obstructive pulmonary disease, unspecified COPD type J44.9 [facility] [address], [place] [address] Aug, [facility] [address] [address] Aug, Cirrhosis of liver without ascites, unspecified hepatic cirrhosis type K74.60 [facility] [address], [place] [address] Aug, [facility] [address] [address] Aug, [facility] [id number] [place] [address] Jul, [facility] [id number] [place] [address] Jul, Diabetes E11.9 and Viral gastroenteritis A08.4 [facility] [id number] [place] [address] Jul, Cirrhosis of liver without ascites, unspecified hepatic cirrhosis type K74.60 and Chronic obstructive pulmonary disease, unspecified COPD type J44.9 [facility] [id number] [place] [address] Jul, [facility] [id number] [place] [address] Jul, Cirrhosis of liver without ascites, unspecified hepatic cirrhosis type K74.60 [facility] [id number] [place] [address] Jul, [facility] [id number] [place] [address] Jul, [facility] [id number] [place] [address] Jun, Cirrhosis of liver without ascites, unspecified hepatic cirrhosis type K74.60 and Viral gastroenteritis A08.4 [facility] [id number] [place] [address] Jun, Nausea and vomiting, intractability of vomiting not specified, unspecified vomiting type R11.2 ; Acute nonintractable headache, unspecified headache type R51 and History of encephalopathy Z86.69 [facility] [id number] [place] [address] Jun, [facility] [address] [address] Jun, Neuropathy, diabetic E11.40 and Hypertension, benign I10 [facility] [id number] [place] [address] Jun, [facility] [address], [place] [address] Jun, [facility] [id number] [place] [id number] Jun, [facility] [id number] [place] [address] Jun, [facility] [id number] [place] [address] Jun, [facility] [id number] [place] [address] Jun, Viral gastroenteritis A08.4 and Diabetes E11.9 [facility] [id number] [place] [address] May, Lumbago with sciatica, left side M54.42 [facility] [id number] [place] [address] 14 May, 2017 Lumbago with sciatica, left side M54.42 [facility] [id number] [place] [address] May, [facility] [id number] [place] [address] May, [facility] [address] [place] [address] Apr, Lumbago with sciatica, left side M54.42 ; Neuropathy, diabetic E11.40 and Mood disorder F39 [facility] [address], [place] [address] Apr, [facility] [id number] [place] [address] Apr, [facility] [address] [place] [address] Mar, Other chronic pain G89.29 and Type 2 diabetes mellitus without complications E11.9 [facility] [address], [place] [address] Mar, Other chronic pain G89.29 [facility] [address], [place] [address] Feb, Other chronic pain G89.29 [facility] [address], [place] [address] January, Shoulder pain, left M25.512 and Other chronic pain G89.29 [facility] [address], [place] [address] January, [facility] [id number] [place] [address] January, Drug-induced erectile dysfunction N52.2 [facility] [address], [place] [address] January, Diabetes E11.9 [facility] [address] [place] [address] January, Diabetes E11.9 ; Chronic pain disorder G89.4 ; Lumbago with sciatica, left side M54.42 and Other acute postprocedural pain G89.18 [facility] [address], [place] [address] Dec, Drug-induced erectile dysfunction N52.2 [facility] [address], [place] [address] Nov, Drug-induced erectile dysfunction N52.2 [facility] [address], [place] [address] Nov, Drug-induced erectile dysfunction N52.2 [facility] [address], [place] [address] Oct, Diabetes E11.9 [facility] [address], [place] [address] 02 Feb, 2017 Diabetes E11.9 ; Neuropathy, diabetic E11.40 and Drug-induced erectile dysfunction N52.2 [facility] [address] [place] [address] Sep, [facility] [id number] [place] [address] Aug, Diabetes type 2, controlled E11.9 [facility] [id number] [place] [address] Aug, Diabetic mononeuropathy associated with type 2 diabetes mellitus E11.41 [facility] [id number] [place] [address] Jul, [facility] [id number] [place] [address] Jul, Primary insomnia F51.01 [facility] [id number] [place] [address] Jun, [facility] [id number] [place] [address] Jun, Diabetes E11.9 ; Primary insomnia F51.01 and Depression, unspecified depression type F32.9 [facility] [id number] [place] [address] Jun, [facility] [address] [place] [address] Jun, [facility] [id number] [place] [address] May, [facility] [id number] [place] [address] May, Mood disorder F39 [facility] [id number] [place] [address] Apr, [facility] [address], [place] [address] Mar, Acute cystitis without hematuria N30.00 [facility] [address], [place] [address] Feb, Diabetes E11.9 [facility] [id number] [place] [address] January, [facility] [id number] [place] [address] January, [facility] [id number] [place] [address] January, Acute cystitis without hematuria N30.00 ; 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 ; Fatigue, unspecified type R53.83 and Weight loss, abnormal R63.4 [facility] [id number] [place] [address] January, [facility] [id number] [place] [address] Dec, [facility] [id number] [place] [address] Nov, [facility] [id number] [place] [address] Nov, Neuropathy, diabetic E11.40 [facility] [id number] [place] [address] Oct, Neuropathy, diabetic E11.40 [facility] [id number] [place] [address] Oct, [facility] [address] [place] [address] Oct, [facility] [id number] [place] [address] Oct, [facility] [address], [place] [address] Aug, [facility] [id number] [place] [address] Aug, Type 2 diabetes mellitus with foot ulcer E11.621 ; Nausea R11.0 ; Other complications following infusion, transfusion and therapeutic injection, initial encounter T80.89XA ; Hyperlipidemia, mixed E78.2 and Nail ingrowing L60.0 [facility] [id number] [place] [address] Jul, [facility] [address] [address] Jul, Diabetes E11.9 [facility] [address] [address] Jul, Type 2 diabetes mellitus with foot ulcer E11.621 and Non-pressure chronic ulcer of other part of left foot with unspecified severity L97.529 [facility] [address] [address] Jun, Diabetes E11.9 ; Shoulder pain, left M25.512 ; Abdominal pain, lower R10.30 ; Hepatitis C, chronic B18.2 and Diabetes mellitus without mention of complication, type II or unspecified type, not stated as uncontrolled 250.00 [facility] [address] [address] Jun, Cellulitis, abdominal wall L03.311 and Nocturnal hypoxemia G47.34 [facility] [id number] [place] [address] Jun, Diabetes mellitus without mention of complication, type II or unspecified type, not stated as uncontrolled 250.00 [facility] [id number] [place] [address] May, Diabetes mellitus without mention of complication, type II or unspecified type, not stated as uncontrolled 250.00 [facility] [id number] [place] [address] May, Abdominal pain 789.00 [facility] [address] [address] May, [facility] [address], [place] [address] May, [facility] [address], [place] [address] May, Diabetes mellitus without mention of complication, type II or unspecified type, not stated as uncontrolled 250.00 [facility] [address], [place] [address] Apr, [facility] [address], [place] [address] Mar, [facility] [address] [place] [address] Mar, Diabetes mellitus without mention of complication, type II or unspecified type, not stated as uncontrolled 250.00 [facility] [address], [place] [address] Feb, Diabetes mellitus without mention of complication, type II or unspecified type, not stated as uncontrolled 250.00 and Chronic pain 338.29 [facility] [address], [place] [address] Feb, [facility] [address], [place] [address] January, Diabetes mellitus without mention of complication, type II or unspecified type, not stated as uncontrolled 250.00 and Chronic pain 338.29 [facility] [address], [place] [address] January, [facility] [address], [place] [address] Dec, [facility] [address], [place] [address] Dec, [facility] [address] [place] [address] Oct, [facility] [address], [place] [address] Oct, 2014 [facility] [place] [facility] [address] [id number] [place] [address] Oct, 2014 [facility] [place] [facility] [address] [id number] [place] [address] Oct, 2014 [facility] [place] [facility] [address] [facility] [id number] [place] [address] Oct, 2014 [facility] [place] [facility] [address] [id number] [place] [address] Oct, 2014 [facility] [place] [facility] [address] [id number] [place] [address] Oct, 2014 [facility] [place] [facility] [address] [facility] [id number] [place] [address] Oct, 2014 [facility] [place] [facility] [address] [facility] [id number] [place] [address] Oct, 2014 [facility] [place] [facility] [address] [facility] [id number] [place] [address] Oct, 2014 [facility] [place] [facility] [address] [facility] [id number] [place] [address] Oct, 2014 [facility] [place] [facility] [address] [facility] [id number] [place] [address] Oct, 2014 [facility] [place] [facility] [address] [facility] [id number] [place] [address] Sep, [facility] [place] [facility] [address] [facility] [id number] [place] [address] Sep, [facility] [place] [facility] [address] [id number] [place] [address] Aug, [facility] [place] [facility] [address] [facility] [id number] [place] [address] Aug, [facility] [place] [facility] [address] [facility] [id number] [place] [address] Aug, [facility] [place] [facility] [address] [id number] [place] [address] Aug, [facility] [place] [facility] [address] [id number] [place] [address] Aug, [facility] [place] [facility] [address] [id number] [place] [address] Aug, [facility] [place] [facility] [address] [id number] [place] [address] Aug, [facility] [place] [facility] [address] [id number] [place] [address] Aug, [facility] [place] [facility] [address] [id number] [place] [address] Aug, [facility] [place] [facility] [address] [id number] [place] [address] Aug, [facility] [place] [facility] [address] [id number] [place] [address] Jul, [facility] [place] [facility] [address] [id number] [place] [address] Jul, [facility] [place] [facility] [address] [id number] [place] [address] Jun, [facility] [place] [facility] [address] [id number] [place] [address] Jun, [facility] [place] [facility] [address] [id number] [address] Jun, [facility] [place] [facility] [address] [id number] [place] [address] Jun, [facility] [place] [facility] [address] [id number] [place] [address] Jun, [facility] [place] [facility] [address] [id number] [place] [address] Jun, [facility] [place] [facility] [address] [id number] [place] [address] Jun, [facility] [place] [facility] [address] [id number] [place] [address] 30 May, 2013 [facility] [place] [facility] [address] [id number] [place] [address] 30 May, 2013 [facility] [place] [facility] [address] [id number] [place] [address] 30 May, 2013 [facility] [place] [facility] [address] [id number] [place] [address] 30 May, 2013 [facility] [place] [facility] [address] [id number] [place] [address] May, 2013 [facility] [place] [facility] [address] [id number] [place] [address] May, 2013 [facility] [place] [facility] [address] [id number] [place] [address] May, 2013 [facility] [place] [facility] [address] [id number] [place] [address] May, 2013 [facility] [place] [facility] [address] [id number] [place] [address] 24 May, 2013 [facility] [place] [facility] [address] [id number] [place] [address] May, 2013 [facility] [place] [facility] [address] [id number] [place] [address] May, 2013 [facility] [place] [facility] [address] [id number] [place] [address] May, 2013 [facility] [place] [facility] [address] [id number] [place] [address] May, 2013 [facility] [place] [facility] [address] [id number] [place] [address] Mar, 2013 [facility] [place] [facility] [address] [id number] [place] [address] Mar, 2013 [facility] [place] [facility] [address] [id number] [place] [address] Mar, [facility] [place] [facility] [address] [id number] [place] [address] Mar, [facility] [place] [facility] [address] [id number] [place] [address] Mar, [facility] [place] [facility] [address] [id number] [place] [address] Mar, [facility] [place] [facility] [address] [id number] [place] [address] Feb, [facility] [place] [facility] [address] [id number] [place] [address] Feb, [facility] [place] [facility] [address] [id number] [place] [address] Feb, [facility] [place] [facility] [address] [id number] [place] [address] Feb, [facility] [place] [facility] [address] [id number] [place] [address] Feb, [facility] [place] [facility] [address] [id number] [place] [address] Feb, [facility] [place] [facility] [address] [id number] [place] [address] Feb, [facility] [place] [facility] [address] [id number] [place] [address] Feb, [facility] [place] [facility] [address] [id number] [place] [address] Feb, [facility] [place] [facility] [address] [id number] [place] [address] January, [facility] [place] [facility] [address] [id number] [place] [address] January, [facility] [place] [facility] [address] [id number] [place] [address] Dec, [facility] [place] [facility] [address] [id number] [place] [address] Dec, [facility] [place] [facility] [address] [id number] [place] [address] Dec, [facility] [place] [facility] [address] [id number] [place] [address] Dec, [facility] [place] [facility] [address] [id number] [place] [address] Nov, [facility] [place] [facility] [address] [id number] [place] [address] Nov, [facility] [place] [facility] [address] [id number] [place] [address] Nov, [facility] [place] [facility] [address] [id number] [place] [address] Nov, [facility] [place] [facility] [address] [id number] [place] [address] Nov, [facility] [place] [facility] [address] [id number] [place] [address] Nov, [facility] [place] [facility] [address] [id number] [place] [address] Nov, [facility] [place] [facility] [address] [id number] [place] [address] Nov, [facility] [place] [facility] [address] [id number] [place] [address] Nov, [facility] [place] [facility] [address] [id number] [place] [address] Nov, [facility] [place] [facility] [address] [id number] [place] [address] Oct, [facility] [place] [facility] [address] [id number] [place] [address] Oct, [facility] [place] [facility] [address] [id number] [place] [address] Sep, [facility] [address] [id number] [place] [address] Sep, [facility] [place] [facility] [address] [id number] [place] [address] Sep, [facility] [place] [facility] [address] [id number] [place] [address] Aug, [facility] [place] [facility] [address] [id number] [place] [address] Aug, [facility] [place] [facility] [address] [id number] [place] [address] Aug, [facility] [place] [facility] [address] [id number] [place] [address] Aug, [facility] [place] [facility] [address] [id number] [place] [address] Jul, [facility] [place] [facility] [address] [id number] [place] [address] Jul, [facility] [place] [facility] [address] [id number] [place] [address] Jul, [facility] [place] [facility] [address] [facility] [id number] [place] [address] Jul, [facility] [place] [facility] [address] [id number] [place] [address] Jun, [facility] [place] [facility] [address] [id number] [place] [address] Jun, [facility] [place] [facility] [address] [id number] [place] [address] Jun, [facility] [place] [facility] [address] [id number] [place] [address] Jun, [facility] [place] [facility] [address] [id number], [place] [address] 16 Jun, 2013 [facility] [place] [facility] [address] [id number] [place] [address] Jun, [facility] [place] [facility] [address] [id number] [place] [address] Jun, [facility] [place] [facility] [address] [id number] [place] [address] Jun, [facility] [place] [facility] [address] [id number] [place] [address] May, [facility] [place] [facility] [address] [id number] [place] [address] Apr, [facility] [place] [facility] [address] [id number] [place] [address] Mar, [facility] [place] [facility] [address] [id number] [place] [address] Mar, [facility] [place] [facility] [address] [id number] [place] [address] Feb, [facility] [place] [facility] [address] [id number] [place] [address] Feb, [facility] [place] [facility] [address] [id number] [place] [address] Feb, [facility] [place] [facility] [address] [id number] [place] [address] Dec, [facility] [place] [facility] [address] [id number] [place] [address] Dec, [facility] [place] [facility] [address] [id number] [place] [address] Dec, [facility] [place] [facility] [address] [id number] [place] [address] Nov, [facility] [place] [facility] [address] [id number] [place] [address] Oct, [facility] [place] [facility] [address] [id number] [place] [address] 27 Oct, 2012 [facility] [address] [id number] [place] [address] Oct, [facility] [place] [facility] [address] [id number] [place] [address] 08 Oct, 2012 [facility] [address] [id number] [place] [address] 14 Sep, 2012 [facility] [address] [id number] [place] [address] Sep, [facility] [address] [id number] [place] [address] 31 Aug, 2012 [facility] [address] [id number] [place] [address] 31 Aug, 2012 [facility] [address] [id number] [place] [address] Aug, [facility] [address] [id number] [place] [address] 26 Aug, 2012 [facility] [address] [id number] [place] [address] Aug, [facility] [address] [facility] [id number] [place] [address] Aug, [facility] [address] [id number] [place] [address] 18 Aug, 2012 [facility] [place] [facility] [address] [id number] [place] [address] 18 Aug, 2012 [facility] [place] [facility] [address] [id number] [place] [address] 14 Aug, 2012 [facility] [place] [facility] [address] [id number] [place] [address] 14 Aug, 2012 [facility] [place] [facility] [address] [facility] [id number] [place] [address] 10 Aug, 2012 [facility] [place] [facility] [address] [id number] [place] [address] Aug, [facility] [place] [facility] [address] [id number] [place] [address] Jul, [facility] [place] [facility] [address] [id number] [place] [address] Jul, [facility] [place] [facility] [address] [id number] [place] [address] Jul, [facility] [place] [facility] [address] [id number] [place] [address] Jul, [facility] [place] [facility] [address] [id number] [place] [address] Jul, [facility] [place] [facility] [address] [id number] [place] [address] Jul, [facility] [place] [facility] [address] [id number] [place] [address] Jul, [facility] [place] [facility] [address] [id number] [place] [address] Jul, [facility] [place] [facility] [address] [id number] [place] [address] Jul, [facility] [place] [facility] [address] [facility] [id number] [place] [address] Jul, [facility] [place] [facility] [address] [id number] [place] [address] Jun, [facility] [place] [facility] [address] [id number] [place] [address] Jun, [facility] [place] [facility] [address] [id number] [place] [address] Jun, [facility] [place] [facility] [address] [id number] [place] [address] Jun, [facility] [place] [facility] [address] [id number] [place] [address] Apr, [facility] [place] [facility] [address] [id number] [place] [address] Mar, [facility] [place] [facility] [address] [id number] [place] [address] Mar, [facility] [place] [facility] [address] [id number] [place] [address] Mar, [facility] [place] [facility] [address] [id number] [place] [address] Mar, [facility] [place] [facility] [address] [id number] [place] [address] Mar, [facility] [place] [facility] [address] [id number] [place] [address] Feb, [facility] [place] [facility] [address] [id number] [place] [address] Feb, [facility] [place] [facility] [address] [id number] [place] [address] January, [facility] [place] [facility] [address] [id number] [place] [address] January, [facility] [place] [facility] [address] [id number] [place] [address] Nov, [facility] [place] [facility] [address] [id number] [place] [address] Nov, [facility] [place] [facility] [address] [id number] [place] [address] Nov, [facility] [place] [facility] [address] [id number] [place] [address] Nov, [facility] [place] [facility] [address] [id number] [place] [address] Nov, [facility] [place] [facility] [address] [id number] [place] [address] Oct, [facility] [place] [facility] [address] [id number] [place] [address] 11 Jul, 2011 [facility] [place] [facility] [address] [id number] [place] [address] Jul, [facility] [place] [facility] [address] [id number] [place] [address] Jul, [facility] [place] [facility] [address] [id number] [place] [address] 24 Jun, 2011 [facility] [place] [facility] [address] [id number] [place] [address] Jun, [facility] [place] [facility] [address] [id number] [place] [address] Dec, [facility] [place] [facility] [address] [id number] [place] [address] Aug, [facility] [place] [facility] [address] [id number] [place] [address] Aug, [facility] [place] [facility] [address] [id number] [place] [address] Jul, [facility] [place] [facility] [address] [id number] [place] [address] Jul, [facility] [place] [facility] [address] [facility] [id number] [place] [address] Jul, [facility] [place] [facility] [address] [id number] [place] [address] 25 Jun, 2010 [facility] [place] [facility] [address] [id number], [place] [address] Jun, [facility] [place] [facility] [address] [id number] [place] [address] Jun, [facility] [place] [facility] [address] [id number] [place] [address] 15 May, 2010 [facility] [place] [facility] [address] [id number], [place] [address] Feb, [facility] [address] [facility] [id number] [place] [address] January, IMMUNIZATIONS No Known Immunizations SOCIAL HISTORY Never Assessed REASON FOR VISIT hospital f/u PLAN OF CARE VITAL SIGNS MEDICATIONS Unknown [...]
--- OUTSIDE RECORDS SUMMARY | 2019-04-25 17:19 | XMS REPORT ---
Author Author RONALD KELLEY Organization [facility] Address [address] 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 Name Role Phone RONALD KELLEY Unavailable PROBLEMS Type Condition ICD9-CM Code IUH07-JH Code Onset Dates Condition Status SNOMED Code Problem Hypertension, benign I10 Active 15945995 Problem Neuropathy, diabetic E11.40 Active 583555531 Problem Hyperlipidemia, mixed E78.2 Active 496018719 Problem Mood disorder F39 Active 42305261 Problem Primary insomnia F51.01 Active 049859054 Problem Diabetes E11.9 Active 721837304 Problem Precordial pain R07.2 Active 04618373 Problem Type 2 diabetes mellitus without complications E11.9 Active 223775032 Problem Depression, unspecified depression type F32.9 Active 43437575 Problem Chronic obstructive pulmonary disease, unspecified COPD type J44.9 Active 53713976 Problem Cirrhosis of liver without ascites, unspecified hepatic cirrhosis type K74.60 Active 09582205 ALLERGIES No Information ENCOUNTERS Encounter Location Date Diagnosis [facility] [id number] [place] [address] Feb, [facility] [id number] [place] [address] Feb, [facility] [id number] [place] [address] January, [facility] [id number] [place] [address] January, Diabetes E11.9 [facility] [id number] [place] [address] January, Diabetes E11.9 [facility] [address] [address] Dec, Diabetes E11.9 ; Mood disorder F39 ; Hyperlipidemia, mixed E78.2 ; Precordial pain R07.2 ; Type 2 diabetes mellitus with hyperglycemia E11.65 and half-way current use of insulin Z79.4 [facility] [id number] [place] [address] Dec, [facility] [id number] [place] [address] Nov, [facility] [id number] [place] [address] Nov, Cirrhosis of liver without ascites, unspecified hepatic cirrhosis type K74.60 ; Type 2 diabetes mellitus without complications E11.9 ; Precordial pain R07.2 and BMI 40.0-44.9, adult Z68.41 [facility] [id number] [place] [address] Nov, Cirrhosis of liver without ascites, unspecified hepatic cirrhosis type K74.60 [facility] [id number] [place] [address] Oct, [facility] [id number] [place] [address] Oct, Cirrhosis of liver without ascites, unspecified hepatic cirrhosis type K74.60 ; Chronic obstructive pulmonary disease, unspecified COPD type J44.9 and Influenza-like illness R69 [facility] [id number] [address] Oct, [facility] [id number] [place] [address] Oct, [facility] [id number] [place] [address] Oct, Cirrhosis of liver without ascites, unspecified hepatic cirrhosis type K74.60 [facility] [id number] [place] [address] Sep, [facility] [id number] [place] [address] Sep, Chronic obstructive pulmonary disease, unspecified COPD type J44.9 [facility] [address] [address] Sep, Cirrhosis of liver without ascites, unspecified hepatic cirrhosis type K74.60 and Chronic obstructive pulmonary disease, unspecified COPD type J44.9 [facility] [address] [address] Aug, [facility] [id number] [place] [address] Aug, Cirrhosis of liver without ascites, unspecified hepatic cirrhosis type K74.60 [facility] [id number] [place] [address] Aug, [facility] [id number] [place] [address] Aug, [facility] [id number] [place] [address] Jul, [facility] [id number] [place] [address] Jul, Diabetes E11.9 and Viral gastroenteritis A08.4 [facility] [address] [address] Jul, Cirrhosis of liver without ascites, unspecified hepatic cirrhosis type K74.60 and Chronic obstructive pulmonary disease, unspecified COPD type J44.9 [facility] [address] [address] Jul, [facility] [id number] [place] [address] Jul, Cirrhosis of liver without ascites, unspecified hepatic cirrhosis type K74.60 [facility] [address], [place] [address] Jul, [facility] [id number] [place] [address] Jul, [facility] [id number] [place] [address] Jun, Cirrhosis of liver without ascites, unspecified hepatic cirrhosis type K74.60 and Viral gastroenteritis A08.4 [facility] [id number] [place] [address] Jun, Nausea and vomiting, intractability of vomiting not specified, unspecified vomiting type R11.2 ; Acute nonintractable headache, unspecified headache type R51 and History of encephalopathy Z86.69 [facility] [id number] [place] [address] Jun, [facility] [id number] [place] [address] Jun, Neuropathy, diabetic E11.40 and Hypertension, benign I10 [facility] [id number] [place] [address] Jun, [facility] [id number] [place] [address] Jun, [facility] [place] [address] [id number] Jun, [facility] [id number] [place] [address] Jun, [facility] [id number] [place] [address] Jun, [facility] [id number] [place] [address] Jun, Viral gastroenteritis A08.[address] [facility] [id number] [place] [address] 26 May, 2017 Lumbago with sciatica, left side M54.42 [facility] [id number] [place] [address] 14 May, 2017 Lumbago with sciatica, left side M54.42 [facility] [address] [address] May, [facility] [id number] [place] [address] May, [facility] [address], [place] [address] Apr, Lumbago with sciatica, left side M54.42 ; Neuropathy, diabetic E11.40 and Mood disorder F39 [facility] [address] [address] Apr, [facility] [id number] [place] [address] Apr, [facility] [address] [place] [address] Mar, Other chronic pain G89.29 and Type 2 diabetes mellitus without complications E11.9 [facility] [address], [place] [address] Mar, Other chronic pain G89.29 [facility] [id number] [address] Feb, Other chronic pain G89.29 [facility] [address] [address] January, Shoulder pain, left M25.512 and Other chronic pain G89.29 [facility] [address] [address] January, [facility] [id number] [place] [address] January, Drug-induced erectile dysfunction N52.2 [facility] [address], [place] [address] January, Diabetes E11.9 [facility] [id number] [place] [address] January, Diabetes E11.9 ; Chronic pain disorder G89.4 ; Lumbago with sciatica, left side M54.42 and Other acute postprocedural pain G89.18 [facility] [id number] [place] [address] Dec, Drug-induced erectile dysfunction N52.2 [facility] [id number] [place] [address] Nov, Drug-induced erectile dysfunction N52.2 [facility] [id number] [place] [address] Nov, Drug-induced erectile dysfunction N52.2 [facility] [id number] [place] [address] 03 Oct, [address] [facility] [id number] [place] [address] Oct, Diabetes E11.9 ; Neuropathy, diabetic E11.40 and Drug-induced erectile dysfunction N52.2 [facility] [id number] [place] [address] Sep, [facility] [id number] [place] [address] Aug, Diabetes type 2, controlled E11.9 [facility] [address] [place] [address] Aug, Diabetic mononeuropathy associated with type [address] [facility] [id number] [place] [address] Jul, [facility] [id number] [place] [address] Jul, Primary insomnia F51.01 [facility] [id number] [place] [address] Jun, [facility] [id number] [place] [address] Jun, Diabetes E11.9 ; Primary insomnia F51.01 and Depression, unspecified depression type F32.9 [facility] [address], [place] [address] Jun, [facility] [address], [place] [address] Jun, [facility] [id number] [place] [address] May, [facility] [address] [place] [address] May, Mood disorder F39 [facility] [id number] [place] [address] Apr, [facility] [id number] [place] [address] Mar, Acute cystitis without hematuria N30.00 [facility] [address] [address] Feb, Diabetes E[address].9 [facility] [id number] [place] [address] January, [facility] [address], [place] [address] January, 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 [address], [place] [address] January, [facility] [address], [place] [address] Dec, [facility] [id number] [place] [address] Nov, [facility] [address] [place] [address] Nov, Neuropathy, diabetic E11.40 [facility] [id number] [place] [address] Oct, Neuropathy, diabetic E11.40 [facility] [id number] [place] [address] Oct, [facility] [id number] [place] [address] Oct, [facility] [id number] [place] [address] Oct, [facility] [id number] [place] [address] Aug, [facility] [id number] [place] [address] Aug, Type 2 diabetes mellitus with foot ulcer E11.621 ; Nausea R11.0 ; Other complications following infusion, transfusion and therapeutic injection, initial encounter T80.89XA ; Hyperlipidemia, mixed E78.2 and Nail ingrowing L60.0 [facility] [address] [place] [address] Jul, [place] [id number] [place] [address] Jul, Diabetes E11.9 [facility] [id number] [place] [address] Jul, Type 2 diabetes mellitus with foot ulcer E11.621 and Non-pressure chronic ulcer of other part of left foot with unspecified severity L97.529 [facility] [address] [place] [address] Jun, Diabetes E11.9 ; Shoulder pain, left M25.512 ; Abdominal pain, lower R10.30 ; Hepatitis C, chronic B18.2 and Diabetes mellitus without mention of complication, type II or unspecified type, not stated as uncontrolled 250.00 [facility] [address] [place] [address] Jun, Cellulitis, abdominal wall L03.311 and Nocturnal hypoxemia G47.34 [facility] [id number] [place] [address] Jun, Diabetes mellitus without mention of complication, type II or unspecified type, not stated as uncontrolled 250.00 [facility] [id number] [place] [address] May, Diabetes mellitus without mention of complication, type II or unspecified type, not stated as uncontrolled 250.00 [facility] [id number] [place] [address] May, Abdominal pain 789.00 [facility] [id number] [place] [address] May, [facility] [id number] [place] [address] May, [facility] [id number] [place] [address] May, Diabetes mellitus without mention of complication, type II or unspecified type, not stated as uncontrolled 250.00 [facility] [address] [address] Apr, [facility] [id number] [place] [address] Mar, [facility] [address] [place] [address] Mar, Diabetes mellitus without mention of complication, type II or unspecified type, not stated as uncontrolled 250.00 [facility] [address] [place] [address] Feb, Diabetes mellitus without mention of complication, type II or unspecified type, not stated as uncontrolled 250.00 and Chronic pain 338.29 [facility] [address] [facility] [id number] [address] Feb, [facility] [address] [place] [address] January, Diabetes mellitus without mention of complication, type II or unspecified type, not stated as uncontrolled 250.00 and Chronic pain 338.29 [facility] [address] [facility] [id number] [address] January, [facility] [address] [facility] [id number], [place] [address] Dec, [facility] [id number] [place] [address] Dec, [facility] [id number] [address] Oct, [facility] [address], [place] [address] Oct, [facility] [address], [place] [address] Oct, [facility] [address], [place] [address] Oct, [facility] [address], [place] [address] Oct, [facility] [address], [place] [address] Oct, [facility] [address], [place] [address] Oct, [facility] [address], [place] [address] Oct, [facility] [address], [place] [address] Oct, [facility] [address] [place] [address] Oct, 2014 [facility] [place] [facility] [address] [id number] [place] [address] Oct, 2014 [facility] [place] [facility] [address] [id number] [place] [address] Oct, 2014 [facility] [place] [facility] [address] [id number] [place] [address] Sep, [facility] [place] [facility] [address] [id number] [place] [address] Sep, [facility] [place] [facility] [address] [id number] [place] [address] Aug, [facility] [place] [facility] [address] [id number] [place] [address] Aug, [facility] [place] [facility] [address] [id number] [place] [address] Aug, [facility] [place] [facility] [address] [id number] [place] [address] Aug, [facility] [place] [facility] [address] [id number] [place] [address] Aug, [facility] [place] [facility] [address] [facility] [id number] [place] [address] Aug, [facility] [place] [facility] [address] [id number] [place] [address] Aug, [facility] [place] [facility] [address] [id number] [place] [address] Aug, [facility] [place] [facility] [address] [id number] [place] [address] Aug, [facility] [place] [facility] [address] [id number] [place] [address] Aug, [facility] [place] [facility] [address] [id number] [place] [address] Jul, [facility] [place] [facility] [address] [id number] [place] [address] Jul, [facility] [place] [facility] [address] [id number] [place] [address] Jun, [facility] [place] [facility] [address] [id number] [place] [address] Jun, [facility] [place] [facility] [address] [id number] [place] [address] Jun, [facility] [place] [facility] [address] [id number] [place] [address] Jun, [facility] [place] [facility] [address] [id number] [place] [address] Jun, [facility] [place] [facility] [address] [id number] [place] [address] Jun, [facility] [place] [facility] [address] [id number] [place] [address] Jun, [facility] [place] [facility] [address] [id number] [place] [address] 30 May, 2014 [facility] [place] [facility] [address] [id number] [place] [address] 30 May, 2013 [facility] [place] [facility] [address] [id number] [place] [address] 30 May, 2013 [facility] [place] [facility] [address] [id number] [place] [address] 30 May, 2013 [facility] [place] [facility] [address] [id number] [place] [address] 26 May, 2013 [facility] [place] [facility] [address] [id number] [place] [address] 26 May, 2013 [facility] [place] [facility] [address] [id number] [place] [address] 26 May, 2013 [facility] [place] [facility] [address] [id number] [place] [address] May, 2013 [facility] [place] [facility] [address] [id number] [place] [address] 24 May, 2014 [facility] [place] [facility] [address] [id number] [place] [address] May, [facility] [place] [facility] [address] [id number] [place] [address] May, 2013 [facility] [place] [facility] [address] [id number] [place] [address] May, [facility] [place] [facility] [address] [id number] [place] [address] May, [facility] [place] [facility] [address] [id number] [place] [address] Mar, [facility] [place] [facility] [address] [id number] [place] [address] Mar, [facility] [place] [facility] [address] [id number] [place] [address] Mar, [facility] [place] [facility] [address] [id number] [place] [address] Mar, [facility] [place] [facility] [address] [id number] [place] [address] Mar, [facility] [place] [facility] [address] [id number] [place] [address] Mar, [facility] [place] [facility] [address] [id number] [place] [address] Feb, [facility] [place] [facility] [address] [id number] [place] [address] Feb, [facility] [place] [facility] [address] [id number] [place] [address] Feb, [facility] [place] [facility] [address] [id number] [place] [address] Feb, [facility] [place] [facility] [address] [id number] [place] [address] Feb, [facility] [place] [facility] [address] [id number] [place] [address] Feb, [facility] [place] [facility] [address] [id number] [place] [address] Feb, [facility] [place] [facility] [address] [id number] [place] [address] Feb, [facility] [place] [facility] [address] [id number] [place] [address] Feb, [facility] [place] [facility] [address] [id number] [place] [address] January, [facility] [place] [facility] [address] [id number] [place] [address] January, [facility] [place] [facility] [address] [id number] [place] [address] Dec, [facility] [place] [facility] [address] [id number] [place] [address] Dec, [facility] [place] [facility] [address] [id number] [place] [address] Dec, [facility] [place] [facility] [address] [id number] [place] [address] Dec, [facility] [place] [facility] [address] [id number] [place] [address] Nov, [facility] [place] [facility] [address] [id number] [place] [address] Nov, [facility] [place] [facility] [address] [id number] [place] [address] Nov, [facility] [place] [facility] [address] [id number] [place] [address] Nov, [facility] [place] [facility] [address] [id number] [place] [address] Nov, [facility] [place] [facility] [address] [id number] [place] [address] Nov, [facility] [place] [facility] [address] [id number] [place] [address] Nov, [facility] [place] [facility] [address] [id number] [place] [address] Nov, [facility] [place] [facility] [address] [id number] [place] [address] Nov, [facility] [place] [facility] [address] [id number] [place] [address] Nov, [facility] [place] [facility] [address] [id number] [place] [address] Oct, [facility] [place] [facility] [address] [id number] [place] [address] Oct, [facility] [place] [facility] [address] [id number] [place] [address] Sep, [facility] [place] [facility] [address] [id number] [place] [address] Sep, [facility] [place] [facility] [address] [id number] [place] [address] Sep, [facility] [place] [facility] [address] [id number] [place] [address] Aug, [facility] [place] [facility] [address] [id number] [place] [address] Aug, [facility] [place] [facility] [address] [id number] [place] [address] Aug, [facility] [place] [facility] [address] [id number] [place] [address] Aug, [facility] [place] [facility] [address] [id number] [place] [address] Jul, [facility] [place] [facility] [address] [id number] [place] [address] Jul, [facility] [place] [facility] [address] [id number] [place] [address] Jul, [facility] [place] [facility] [address] [id number] [place] [address] Jul, [facility] [place] [facility] [address] [id number] [place] [address] Jun, [facility] [place] [facility] [address] [id number] [place] [address] Jun, [facility] [place] [facility] [address] [id number] [place] [address] Jun, [facility] [place] [facility] [address] [id number] [place] [address] Jun, [facility] [place] [facility] [address] [id number] [place] [address] Jun, [facility] [place] [facility] [address] [id number] [place] [address] Jun, [facility] [place] [facility] [address] [id number] [place] [address] Jun, [facility] [place] [facility] [address] [id number] [place] [address] Jun, [facility] [place] [facility] [address] [id number] [place] [address] May, [facility] [place] [facility] [address] [id number] [place] [address] Apr, [facility] [place] [facility] [address] [id number] [place] [address] Mar, [facility] [place] [facility] [address] [id number] [place] [address] Mar, [facility] [place] [facility] [address] [id number] [place] [address] Feb, [facility] [place] [facility] [address] [id number] [place] [address] 18 Feb, 2013 [facility] [address] [id number] [place] [address] 10 Feb, 2013 [facility] [place] [facility] [address] [id number] [place] [address] 24 Dec, 2012 [facility] [place] [facility] [address] [id number] [place] [address] Dec, [facility] [place] [facility] [address] [id number] [place] [address] Dec, [facility] [place] [facility] [address] [id number] [place] [address] Nov, [facility] [address] [id number] [place] [address] Oct, [facility] [address] [id number] [place] [address] Oct, [facility] [address] [id number] [place] [address] Oct, [facility] [address] [facility] [id number] [place] [address] Oct, [facility] [address] [facility] [id number] [place] [address] Sep, [facility] [address] [id number] [place] [address] Sep, [facility] [place] [facility] [address] [id number] [place] [address] Aug, [facility] [place] [facility] [address] [id number] [place] [address] Aug, [facility] [place] [facility] [address] [id number] [place] [address] Aug, [facility] [place] [facility] [address] [id number] [place] [address] Aug, [facility] [place] [facility] [address] [id number] [place] [address] Aug, [facility] [place] [facility] [address] [id number] [place] [address] Aug, [facility] [place] [facility] [address] [id number] [place] [address] 18 Aug, 2012 [facility] [place] [facility] [address] [id number] [place] [address] 18 Aug, 2012 [facility] [place] [facility] [address] [id number] [place] [address] 14 Aug, 2012 [facility] [place] [facility] [address] [id number] [place] [address] 14 Aug, 2012 [facility] [place] [facility] [address] [id number] [place] [address] Aug, [facility] [place] [facility] [address] [id number] [place] [address] Aug, [facility] [place] [facility] [address] [id number] [place] [address] 30 Jul, 2012 [facility] [place] [facility] [address] [id number] [place] [address] 30 Jul, 2012 [facility] [place] [facility] [address] [id number] [place] [address] Jul, [facility] [place] [facility] [address] [id number] [place] [address] Jul, [facility] [place] [facility] [address] [id number] [place] [address] Jul, [facility] [place] [facility] [address] [id number] [place] [address] Jul, [facility] [place] [facility] [address] [id number] [place] [address] 19 Jul, 2012 [facility] [place] [facility] [address] [id number] [place] [address] Jul, [facility] [place] [facility] [address] [id number] [place] [address] Jul, [facility] [place] [facility] [address] [id number] [place] [address] Jul, [facility] [place] [facility] [address] [id number] [place] [address] Jun, [facility] [place] [facility] [address] [id number] [place] [address] Jun, [facility] [place] [facility] [address] [id number] [place] [address] Jun, [facility] [place] [facility] [address] [id number] [place] [address] Jun, [facility] [place] [facility] [address] [id number] [place] [address] Apr, [facility] [place] [facility] [address] [id number] [place] [address] Mar, [facility] [place] [facility] [address] [id number] [place] [address] Mar, [facility] [place] [facility] [address] [id number] [place] [address] Mar, [facility] [place] [facility] [address] [id number] [place] [address] Mar, [facility] [place] [facility] [address] [id number] [place] [address] Mar, [facility] [place] [facility] [address] [id number] [place] [address] Feb, [facility] [place] [facility] [address] [id number] [place] [address] Feb, [facility] [place] [facility] [address] [id number] [place] [address] January, [facility] [place] [facility] [address] [id number] [place] [address] January, [facility] [place] [facility] [address] [id number] [place] [address] Nov, [facility] [place] [facility] [address] [id number] [place] [address] Nov, [facility] [place] [facility] [address] [id number] [place] [address] Nov, [facility] [place] [facility] [address] [id number] [place] [address] Nov, [facility] [place] [facility] [address] [id number] [place] [address] Nov, [facility] [place] [facility] [address] [id number] [place] [address] Oct, [facility] [place] [facility] [address] [id number] [place] [address] Jul, [facility] [place] [facility] [address] [id number] [place] [address] Jul, [facility] [place] [facility] [address] [id number] [place] [address] Jul, [facility] [place] [facility] [address] [id number] [place] [address] Jun, [facility] [place] [facility] [address] [id number] [address] Jun, [facility] [place] [facility] [address] [id number] [place] [address] Dec, [facility] [place] [facility] [address] [id number] [place] [address] Aug, [facility] [place] [facility] [address] [id number] [place] [address] Aug, [facility] [place] [facility] [address] [id number] [address] 12 Jul, 2010 [facility] [id number] [address] Jul, [facility] [address] [address] Jul, [facility] [id number] [address] Jun, [facility] [address] [address] Jun, [facility] [id number] [place] [address] Jun, [facility] [id number] [address] May, [facility] [address], [place] [address] Feb, [facility] [id number] [address] January, IMMUNIZATIONS No Known Immunizations SOCIAL HISTORY Never Assessed REASON FOR VISIT Biopsy Results PLAN OF CARE VITAL SIGNS MEDICATIONS Unknown [...]
--- OUTSIDE RECORDS SUMMARY | 2019-04-25 17:20 | XMS REPORT ---
Author Author MYRON LOCO Organization [facility] Address [address] [place] [address] Care Team Providers Care Shingler Name Role Phone MYRON LOCO Unavailable PROBLEMS Type Condition ICD9-CM Code [id number] Code Onset Dates Condition Status SNOMED Code Problem Primary insomnia F51.01 Active 706989442 Problem Hyperlipidemia, mixed E78.2 Active 699636799 Problem Hypertension, benign I10 Active 41533368 Problem Mood disorder F39 Active 94212779 Problem Precordial pain R07.2 Active 98416871 Problem Chronic obstructive pulmonary disease, unspecified COPD type J44.9 Active 28366476 Problem Depression, unspecified depression type F32.9 Active 81636241 Problem Neuropathy, diabetic E11.40 Active 568542728 Problem Cirrhosis of liver without ascites, unspecified hepatic cirrhosis type K74.60 Active 67372428 Problem Type 2 diabetes mellitus without complications E11.9 Active [id number] ALLERGIES No Information ENCOUNTERS Encounter Location Date Diagnosis [place] [id number] [place] [address] Dec, [facility] [id number] [place] [address] Dec, [facility] [id number] [place] [address] Nov, [place] [id number] [place] [address] Nov, Cirrhosis of liver without ascites, unspecified hepatic cirrhosis type K74.60 ; Type 2 diabetes mellitus without complications E11.9 ; Precordial pain R07.2 and BMI 40.0-44.9, adult Z68.41 [facility] [id number] [place] [address] 07 Nov, 2017 Cirrhosis of liver without ascites, unspecified hepatic cirrhosis type K74.60 [facility] [address] [place] [address] Oct, [facility] [address] [address] Oct, Cirrhosis of liver without ascites, unspecified hepatic cirrhosis type K74.60 ; Chronic obstructive pulmonary disease, unspecified COPD type J44.9 and Influenza-like illness R69 [facility] [address] [address] Oct, [facility] [address] [address] Oct, [facility] [address] [address] Oct, Cirrhosis of liver without ascites, unspecified hepatic cirrhosis type K74.60 [facility] [address] [address] Sep, [facility] [address] [address] Sep, Chronic obstructive pulmonary disease, unspecified COPD type J44.9 [facility] [address] [address] Sep, Cirrhosis of liver without ascites, unspecified hepatic cirrhosis type K74.60 and Chronic obstructive pulmonary disease, unspecified COPD type J44.9 [facility] [address] [address] Aug, [facility] [address] [address] Aug, Cirrhosis of liver without ascites, unspecified hepatic cirrhosis type K74.60 [facility] [address] [address] Aug, [facility] [address] [address] Aug, [facility] [id number] [place] [address] Jul, [facility] [id number] [place] [address] Jul, Diabetes E11.9 and Viral gastroenteritis A08.4 [facility] [id number] [place] [address] Jul, Cirrhosis of liver without ascites, unspecified hepatic cirrhosis type K74.60 and Chronic obstructive pulmonary disease, unspecified COPD type J44.9 [facility] [id number] [place] [address] Jul, [place] [id number] [place] [address] Jul, Cirrhosis of liver without ascites, unspecified hepatic cirrhosis type K74.60 [place] [id number] [place] [address] Jul, [facility] [id number] [place] [address] Jul, [place] [id number] [place] [address] Jun, Cirrhosis of liver without ascites, unspecified hepatic cirrhosis type K74.60 and Viral gastroenteritis A08.4 [facility] [id number] [place] [address] Jun, Nausea and vomiting, intractability of vomiting not specified, unspecified vomiting type R11.2 ; Acute nonintractable headache, unspecified headache type R51 and History of encephalopathy Z86.69 [facility] [id number] [place] [address] Jun, [facility] [id number] [place] [address] Jun, Neuropathy, diabetic E11.40 and Hypertension, benign I10 [facility] [id number] [place] [address] Jun, [facility] [id number] [place] [address] Jun, [facility] [id number] [place] [id number] Jun, [facility] [id number] [place] [address] Jun, [facility] [id number] [place] [address] Jun, [facility] [id number] [place] [address] Jun, Viral gastroenteritis A08.4 and Diabetes E11.9 [facility] [id number] [place] [address] May, Lumbago with sciatica, left side M54.42 [facility] [id number] [place] [address] 14 May, 2017 Lumbago with sciatica, left side M54.42 [facility] [id number] [place] [address] May, [facility] [id number] [place] [address] May, [facility] [id number] [place] [address] Apr, Lumbago with sciatica, left side M54.42 ; Neuropathy, diabetic E11.40 and Mood disorder F39 [facility] [id number] [place] [address] Apr, [facility] [id number] [place] [address] Apr, [facility] [id number] [place] [address] Mar, Other chronic pain G89.29 and Type 2 diabetes mellitus without complications E11.9 [facility] [address] [address] Mar, Other chronic pain G89.29 [facility] [address] [address] Feb, Other chronic pain G89.29 [facility] [address] [address] January, Shoulder pain, left M25.512 and Other chronic pain G89.29 [facility] [address] [address] January, [facility] [id number] [place] [address] January, Drug-induced erectile dysfunction N52.2 [facility] [id number] [address] January, Diabetes E11.9 [facility] [address] [address] January, Diabetes E11.9 ; Chronic pain disorder G89.4 ; Lumbago with sciatica, left side M54.42 and Other acute postprocedural pain G89.18 [facility] [address] [address] Dec, Drug-induced erectile dysfunction N52.2 [facility] [address] [address] Nov, Drug-induced erectile dysfunction N52.2 [facility] [address] [address] Nov, Drug-induced erectile dysfunction N52.2 [facility] [address] [address] Oct, Diabetes E11.9 [facility] [id number] [place] [address] Oct, Diabetes E11.9 ; Neuropathy, diabetic E11.40 and Drug-induced erectile dysfunction N52.2 [facility] [id number] [place] [address] Sep, [facility] [id number] [place] [address] Aug, Diabetes type 2, controlled E11.9 [facility] [id number] [place] [address] Aug, Diabetic mononeuropathy associated with type 2 diabetes mellitus E11.41 [facility] [id number] [place] [address] Jul, [facility] [id number] [place] [address] Jul, Primary insomnia F51.01 [facility] [id number] [place] [address] Jun, [facility] [id number] [place] [address] Jun, Diabetes E11.9 ; Primary insomnia F51.01 and Depression, unspecified depression type F32.9 [facility] [address] [place] [address] Jun, [facility] [id number] [place] [address] Jun, [facility] [id number] [place] [address] May, [facility] [id number] [place] [address] May, Mood disorder F39 [facility] [id number] [place] [address] Apr, [facility] [id number] [place] [address] Mar, Acute cystitis without hematuria N30.00 [facility] [address] [address] Feb, Diabetes E11.9 [facility] [id number] [address] January, [facility] [id number] [place] [address] January, [facility] [id number] [place] [address] January, Acute cystitis without hematuria N30.00 ; 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 ; Fatigue, unspecified type R53.83 and Weight loss, abnormal R63.4 [facility] [id number] [place] [address] January, [facility] [id number] [place] [address] Dec, [facility] [id number] [place] [address] Nov, [facility] [id number] [place] [address] Nov, Neuropathy, diabetic E11.40 [facility] [id number] [address] Oct, Neuropathy, diabetic E11.40 [facility] [id number] [place] [address] Oct, [facility] [address] [address] Oct, [facility] [id number] [place] [address] Oct, [facility] [address] [address] Aug, [facility] [id number] [place] [address] Aug, Type 2 diabetes mellitus with foot ulcer E11.621 ; Nausea R11.0 ; Other complications following infusion, transfusion and therapeutic injection, initial encounter T80.89XA ; Hyperlipidemia, mixed E78.2 and Nail ingrowing L60.0 [place] [address] [address] Jul, [place] [address] [address] Jul, Diabetes E11.9 [place] [address] [address] Jul, Type 2 diabetes mellitus with foot ulcer E11.621 and Non-pressure chronic ulcer of other part of left foot with unspecified severity L97.529 [place] [address] [address] Jun, Diabetes E11.9 ; Shoulder pain, left M25.512 ; Abdominal pain, lower R10.30 ; Diabetes mellitus without mention of complication, type II or unspecified type, not stated as uncontrolled 250.00 and Hepatitis C, chronic B18.2 [place] [address] [address] Jun, Cellulitis, abdominal wall L03.311 and Nocturnal hypoxemia G47.34 [place] [address] [address] Jun, Diabetes mellitus without mention of complication, type II or unspecified type, not stated as uncontrolled 250.00 [place] [address] [address] May, Diabetes mellitus without mention of complication, type II or unspecified type, not stated as uncontrolled 250.00 [place] [id number] [place] [address] May, Abdominal pain 789.00 [place] [address] [address] May, [facility] [id number] [address] May, [facility] [address] [address] May, Diabetes mellitus without mention of complication, type II or unspecified type, not stated as uncontrolled 250.00 [facility] [address] [address] Apr, [facility] [address] [address] Mar, [facility] [address] [address] Mar, Diabetes mellitus without mention of complication, type II or unspecified type, not stated as uncontrolled 250.00 [facility] [address] [address] Feb, Diabetes mellitus without mention of complication, type II or unspecified type, not stated as uncontrolled 250.00 and Chronic pain 338.29 [facility] [address] [address] Feb, [facility] [address] [address] January, Diabetes mellitus without mention of complication, type II or unspecified type, not stated as uncontrolled 250.00 and Chronic pain 338.29 [facility] [address] [address] January, [facility] [address] [address] Dec, [facility] [address] [address] Dec, [facility] [address] [address] Oct, [facility] [id number] [place] [address] Oct, 2014 [facility] [place] [facility] [address] [id number] [place] [address] Oct, 2014 [facility] [place] [facility] [address] [id number] [place] [address] Oct, 2014 [facility] [place] [facility] [address] [id number] [place] [address] Oct, 2014 [facility] [place] [facility] [address] [id number] [place] [address] Oct, 2014 [facility] [place] [facility] [address] [id number] [place] [address] Oct, 2014 [facility] [place] [facility] [address] [facility] [id number] [place] [address] Oct, 2014 [facility] [place] [facility] [address] [facility] [id number] [place] [address] Oct, 2014 [facility] [place] [facility] [address] [facility] [id number] [place] [address] Oct, 2014 [facility] [place] [facility] [address] [facility] [id number] [place] [address] Oct, 2014 [facility] [place] [facility] [address] [facility] [id number] [place] [address] Oct, 2014 [facility] [place] [facility] [address] [facility] [id number] [address] Sep, [facility] [place] [facility] [address] [facility] [id number] [place] [address] Sep, [facility] [place] [facility] [address] [facility] [id number] [place] [address] Aug, [facility] [place] [facility] [address] [facility] [id number] [place] [address] Aug, [facility] [place] [facility] [address] [facility] [id number] [address] Aug, [facility] [place] [facility] [address] [id number] [place] [address] Aug, [facility] [place] [facility] [address] [id number] [place] [address] Aug, [facility] [place] [facility] [address] [facility] [id number] [place] [address] Aug, [facility] [place] [facility] [address] [id number] [place] [address] Aug, [facility] [place] [facility] [address] [facility] [id number] [place] [address] Aug, [facility] [place] [facility] [address] [facility] [id number] [place] [address] Aug, [facility] [place] [facility] [address] [facility] [id number] [place] [address] Aug, [facility] [place] [facility] [address] [facility] [id number] [place] [address] Jul, [facility] [place] [facility] [address] [facility] [id number] [place] [address] Jul, [facility] [place] [facility] [address] [facility] [id number] [address] Jun, [facility] [place] [facility] [address] [facility] [id number] [address] Jun, [facility] [place] [facility] [address] [facility] [id number] [address] Jun, [facility] [place] [facility] [address] [id number] [place] [address] Jun, [facility] [place] [facility] [address] [facility] [id number] [place] [address] Jun, [facility] [place] [facility] [address] [facility] [id number] [address] Jun, [facility] [place] [facility] [address] [id number] [place] [address] 03 Jun, 2013 [facility] [place] [facility] [address] [id number] [place] [address] 30 Sep, 2013 [facility] [place] [facility] [address] [id number] [place] [address] 30 May, 2013 [facility] [place] [facility] [address] [id number] [place] [address] 30 May, 2013 [facility] [place] [facility] [address] [id number] [place] [address] 30 May, 2013 [facility] [place] [facility] [address] [id number] [place] [address] May, 2013 [facility] [place] [facility] [address] [id number] [place] [address] May, 2013 [facility] [place] [facility] [address] [id number] [place] [address] May, 2013 [facility] [place] [facility] [address] [id number] [place] [address] May, 2013 [facility] [place] [facility] [address] [id number] [place] [address] 24 May, 2013 [facility] [place] [facility] [address] [id number] [place] [address] May, 2013 [facility] [place] [facility] [address] [id number] [place] [address] 02 May, 2013 [facility] [place] [facility] [address] [id number] [place] [address] May, 2013 [facility] [place] [facility] [address] [id number] [place] [address] May, 2013 [facility] [place] [facility] [address] [id number] [place] [address] Mar, 2013 [facility] [place] [facility] [address] [id number] [place] [address] Mar, [facility] [place] [facility] [address] [id number] [place] [address] Mar, [facility] [place] [facility] [address] [id number] [place] [address] Mar, [facility] [place] [facility] [address] [id number] [place] [address] Mar, [facility] [place] [facility] [address] [id number] [place] [address] Mar, [facility] [place] [facility] [address] [id number] [place] [address] Feb, [facility] [place] [facility] [address] [id number] [place] [address] Feb, [facility] [place] [facility] [address] [id number] [place] [address] Feb, [facility] [place] [facility] [address] [id number] [place] [address] Feb, [facility] [place] [facility] [address] [id number] [place] [address] Feb, [facility] [place] [facility] [address] [id number] [place] [address] Feb, [facility] [place] [facility] [address] [id number] [place] [address] Feb, [facility] [place] [facility] [address] [id number] [address] Feb, [facility] [place] [facility] [address] [id number] [place] [address] Feb, [facility] [place] [facility] [address] [id number] [place] [address] January, [facility] [place] [facility] [address] [id number] [place] [address] January, [facility] [place] [facility] [address] [id number] [place] [address] 30 Dec, 2013 [facility] [place] [facility] [address] [id number] [place] [address] 30 Dec, 2013 [facility] [place] [facility] [address] [id number] [place] [address] Dec, [facility] [place] [facility] [address] [id number] [place] [address] Dec, [facility] [place] [facility] [address] [id number] [place] [address] Nov, [facility] [place] [facility] [address] [id number] [place] [address] Nov, [facility] [place] [facility] [address] [id number] [place] [address] Nov, [facility] [place] [facility] [address] [id number] [place] [address] Nov, [facility] [place] [facility] [address] [id number] [place] [address] Nov, [facility] [place] [facility] [address] [id number] [place] [address] Nov, [facility] [place] [facility] [address] [id number] [place] [address] Nov, [facility] [place] [facility] [address] [id number] [place] [address] Nov, [facility] [place] [facility] [address] [id number] [place] [address] Nov, [facility] [place] [facility] [address] [id number] [place] [address] Nov, [facility] [place] [facility] [address] [id number] [place] [address] Oct, [facility] [place] [facility] [address] [id number] [place] [address] Oct, [facility] [place] [facility] [address] [id number] [place] [address] Sep, [facility] [place] [facility] [address] [id number] [place] [address] Sep, [facility] [place] [facility] [address] [id number] [place] [address] Sep, [facility] [place] [facility] [address] [id number] [place] [address] Aug, [facility] [place] [facility] [address] [id number] [place] [address] Aug, [facility] [place] [facility] [address] [id number] [place] [address] Aug, [facility] [place] [facility] [address] [id number] [place] [address] Aug, [facility] [place] [facility] [address] [id number] [place] [address] Jul, [facility] [place] [facility] [address] [id number] [place] [address] Jul, [facility] [place] [facility] [address] [id number] [address] Jul, [facility] [place] [facility] [address] [id number] [address] Jul, [facility] [place] [facility] [address] [id number] [address] Jun, [facility] [place] [facility] [address] [id number] [place] [address] Jun, [facility] [place] [facility] [address] [id number] [address] Jun, [facility] [place] [facility] [address] [id number] [address] Jun, [facility] [place] [facility] [address] [id number] [place] [address] Jun, [facility] [address] [id number] [place] [address] Jun, [facility] [place] [facility] [address] [id number] [place] [address] Jun, [facility] [place] [facility] [address] [id number] [place] [address] Jun, [facility] [place] [facility] [address] [id number] [place] [address] May, [facility] [place] [facility] [address] [id number] [place] [address] Apr, [facility] [place] [facility] [address] [id number] [place] [address] Mar, [facility] [place] [facility] [address] [facility] [id number] [place] [address] Mar, [facility] [place] [facility] [address] [id number] [place] [address] Feb, [facility] [place] [facility] [address] [id number] [place] [address] Feb, [facility] [place] [facility] [address] [facility] [id number] [place] [address] Feb, [facility] [place] [facility] [address] [id number] [place] [address] 24 Dec, 2012 [facility] [place] [facility] [address] [id number] [place] [address] Dec, [facility] [place] [facility] [address] [id number] [place] [address] Dec, [facility] [place] [facility] [address] [facility] [id number] [place] [address] Nov, [facility] [place] [facility] [address] [facility] [id number] [place] [address] Oct, [facility] [place] [facility] [address] [id number] [place] [address] 27 Oct, 2012 [facility] [address] [id number] [place] [address] 13 Oct, 2012 [facility] [place] [facility] [address] [id number] [place] [address] 08 Oct, 2012 [facility] [place] [facility] [address] [id number] [place] [address] 14 Sep, 2012 [facility] [place] [facility] [address] [id number] [place] [address] Sep, [facility] [place] [facility] [address] [id number] [place] [address] Aug, [facility] [address] [id number] [place] [address] Aug, [facility] [address] [id number] [place] [address] Aug, [facility] [address] [id number] [place] [address] Aug, [facility] [address] [id number] [place] [address] Aug, [facility] [address] [id number] [place] [address] Aug, [facility] [address] [id number] [place] [address] 18 Aug, 2012 [facility] [place] [facility] [address] [id number] [place] [address] 18 Aug, 2012 [facility] [place] [facility] [address] [id number] [place] [address] 14 Aug, 2012 [facility] [place] [facility] [address] [id number] [place] [address] 14 Aug, 2012 [facility] [place] [facility] [address] [id number] [place] [address] Aug, [facility] [place] [facility] [address] [id number] [place] [address] Aug, [facility] [place] [facility] [address] [id number] [address] Jul, [facility] [place] [facility] [address] [facility] [id number] [place] [address] Jul, [facility] [place] [facility] [address] [id number] [place] [address] Jul, [facility] [place] [facility] [address] [id number] [place] [address] Jul, [facility] [place] [facility] [address] [id number] [address] Jul, [facility] [place] [facility] [address] [id number] [place] [address] Jul, [facility] [place] [facility] [address] [id number] [address] Jul, [facility] [place] [facility] [address] [id number] [place] [address] Jul, [facility] [place] [facility] [address] [id number] [address] Jul, [facility] [place] [facility] [address] [id number] [place] [address] 16 Jul, 2012 [facility] [place] [facility] [address] [id number] [place] [address] Jun, [facility] [place] [facility] [address] [id number] [place] [address] Jun, [facility] [place] [facility] [address] [facility] [id number] [place] [address] 16 Jun, 2012 [facility] [place] [facility] [address] [facility] [id number] [address] Jun, [facility] [place] [facility] [address] [id number] [place] [address] Apr, [facility] [address] [id number] [place] [address] Mar, [facility] [place] [facility] [address] [id number] [place] [address] Mar, [facility] [address] [id number] [place] [address] Mar, [facility] [place] [facility] [address] [id number] [place] [address] Mar, [facility] [address] [id number] [place] [address] Mar, [facility] [address] [id number] [place] [address] Feb, [facility] [address] [id number] [place] [address] Feb, [facility] [address] [id number] [place] [address] January, [facility] [place] [facility] [address] [id number] [place] [address] January, [facility] [address] [id number] [place] [address] Nov, [facility] [place] [facility] [address] [id number] [place] [address] Nov, [facility] [place] [facility] [address] [id number] [place] [address] Nov, [facility] [place] [facility] [address] [id number] [place] [address] Nov, [facility] [place] [facility] [address] [id number] [place] [address] Nov, [facility] [place] [facility] [address] [id number] [place] [address] Oct, [facility] [place] [facility] [address] [id number] [place] [address] Jul, [facility] [place] [facility] [address] [id number] [place] [address] Jul, [facility] [place] [facility] [address] [id number] [place] [address] Jul, [facility] [place] [facility] [address] [id number] [place] [address] Jun, [facility] [place] [facility] [address] [id number] [place] [address] Jun, [facility] [place] [facility] [address] [id number] [place] [address] Dec, [facility] [place] [facility] [address] [id number] [place] [address] Aug, [facility] [place] [facility] [address] [id number] [address] Aug, [facility] [place] [facility] [address] [facility] [id number] [address] Jul, [facility] [place] [facility] [address] [facility] [id number] [place] [address] Jul, [facility] [place] [facility] [address] [facility] [id number] [place] [address] Jul, [facility] [place] [facility] [address] [id number] [place] [address] Jun, [facility] [place] [facility] [address] [id number] [place] [address] Jun, [facility] [place] [facility] [address] [id number] [place] [address] Jun, [facility] [place] [facility] [address] [facility] [id number] [place] [address] 15 May, 2010 [facility] [place] [facility] [address] [id number] [place] [address] Feb, [facility] [address] [facility] [id number] [place] [address] January, IMMUNIZATIONS No Known Immunizations SOCIAL HISTORY Never Assessed REASON FOR VISIT medication side affects PLAN OF CARE VITAL SIGNS MEDICATIONS Unknown [...]
--- OUTSIDE RECORDS SUMMARY | 2019-04-25 17:20 | XMS REPORT ---
Author Author RONALD KELLEY Organization [facility] Address [address] [place] [address] Care Team Providers Care Chief Librarian Circulation Department Name Role Phone RONALD KELLEY Unavailable PROBLEMS Type Condition ICD9-CM Code RHD45-DQ Code Onset Dates Condition Status SNOMED Code Problem Hypertension, benign I10 Active 25810380 Problem Neuropathy, diabetic E11.40 Active 872138150 Problem Hyperlipidemia, mixed E78.2 Active 915057248 Problem Mood disorder F39 Active 24629312 Problem Primary insomnia F51.01 Active 897335294 Problem Diabetes E11.9 Active 413401031 Problem Precordial pain R07.2 Active 87423965 Problem Type 2 diabetes mellitus without complications E11.9 Active 718015712 Problem Depression, unspecified depression type F32.9 Active 56375069 Problem Chronic obstructive pulmonary disease, unspecified COPD type J44.9 Active 32149176 Problem Cirrhosis of liver without ascites, unspecified hepatic cirrhosis type K74.60 Active 11835747 ALLERGIES No Information ENCOUNTERS Encounter Location Date Diagnosis [place] [id number] [place] [address] January, [place] [id number] [place] [address] January, Diabetes E11.9 [facility] [id number] [place] [address] January, Diabetes E11.9 [facility] [id number] [place] [address] Dec, Diabetes E11.9 ; Mood disorder F39 ; Hyperlipidemia, mixed E78.2 ; Precordial pain R07.2 ; Type 2 diabetes mellitus with hyperglycemia E11.65 and correction current use of insulin Z79.4 [facility] [id number] [place] [address] Dec, [facility] [address] [address] Nov, [facility] [address] [address] Nov, Cirrhosis of liver without ascites, unspecified hepatic cirrhosis type K74.60 ; Type 2 diabetes mellitus without complications E11.9 ; Precordial pain R07.2 and BMI 40.0-44.9, adult Z68.41 [facility] [address] [address] Nov, Cirrhosis of liver without ascites, unspecified hepatic cirrhosis type K74.60 [place] [address] [address] Oct, [place] [address] [address] Oct, Cirrhosis of liver without ascites, unspecified hepatic cirrhosis type K74.60 ; Chronic obstructive pulmonary disease, unspecified COPD type J44.9 and Influenza-like illness R69 [facility] [address], [place] [address] Oct, [facility] [address] [address] Oct, [facility] [address] [address] Oct, Cirrhosis of liver without ascites, unspecified hepatic cirrhosis type K74.60 [facility] [address] [address] Sep, [facility] [address], [place] [address] Sep, Chronic obstructive pulmonary disease, unspecified COPD type J44.9 [facility] [address], [place] [address] Sep, Cirrhosis of liver without ascites, unspecified hepatic cirrhosis type K74.60 and Chronic obstructive pulmonary disease, unspecified COPD type J44.9 [facility] [address] [place] [address] Aug, [facility] [address] [place] [address] Aug, Cirrhosis of liver without ascites, unspecified hepatic cirrhosis type K74.60 [facility] [id number] [place] [address] Aug, [facility] [address] [place] [address] Aug, [facility] [id number] [place] [address] Jul, [facility] [id number] [place] [address] Jul, Diabetes E11.9 and Viral gastroenteritis A08.4 [facility] [address] [place] [address] Jul, Cirrhosis of liver without ascites, unspecified hepatic cirrhosis type K74.60 and Chronic obstructive pulmonary disease, unspecified COPD type J44.9 [facility] [address], [place] [address] Jul, [facility] [address] [place] [address] Jul, Cirrhosis of liver without ascites, unspecified hepatic cirrhosis type K74.60 [facility] [address], [place] [address] Jul, [facility] [id number] [place] [address] Jul, [facility] [address], [place] [address] Jun, Cirrhosis of liver without ascites, unspecified hepatic cirrhosis type K74.60 and Viral gastroenteritis A08.4 [facility] [id number] [place] [address] Jun, Nausea and vomiting, intractability of vomiting not specified, unspecified vomiting type R11.2 ; Acute nonintractable headache, unspecified headache type R51 and History of encephalopathy Z86.69 [facility] [id number] [place] [address] Jun, [facility] [address] [address] Jun, Neuropathy, diabetic E11.40 and Hypertension, benign I10 [facility] [address] [address] Jun, [facility] [address] [address] Jun, [facility] [address] [id number] Jun, [facility] [address] [address] Jun, [facility] [address] [address] Jun, [facility] [address] [address] Jun, Viral gastroenteritis A08.4 and Diabetes E11.9 [facility] [address] [address] May, Lumbago with sciatica, left side M54.42 [facility] [address] [address] 14 May, 2017 Lumbago with sciatica, left side M54.42 [facility] [id number] [place] [address] May, [facility] [address] [address] May, [facility] [address], [place] [address] Apr, Lumbago with sciatica, left side M54.42 ; Neuropathy, diabetic E11.40 and Mood disorder F39 [facility] [address], [place] [address] Apr, [facility] [id number] [place] [address] Apr, [facility] [id number] [place] [address] Mar, Other chronic pain G89.29 and Type 2 diabetes mellitus without complications E11.9 [facility] [id number] [place] [address] Mar, Other chronic pain G89.29 [facility] [id number] [place] [address] Feb, Other chronic pain G89.29 [facility] [address] [place] [address] January, Shoulder pain, left M25.512 and Other chronic pain G89.29 [facility] [address], [place] [address] January, [facility] [address], [place] [address] January, Drug-induced erectile dysfunction N52.2 [facility] [address], [place] [address] January, Diabetes E11.9 [facility] [id number] [place] [address] January, Diabetes E11.9 ; Chronic pain disorder G89.4 ; Lumbago with sciatica, left side M54.42 and Other acute postprocedural pain G89.18 [facility] [id number] [place] [address] Dec, Drug-induced erectile dysfunction N52.2 [facility] [address] [place] [address] Nov, Drug-induced erectile dysfunction N52.2 [facility] [address], [place] [address] Nov, Drug-induced erectile dysfunction N52.2 [facility] [id number] [place] [address] Oct, Diabetes E11.9 [facility] [id number] [place] [address] Oct, Diabetes E11.9 ; Neuropathy, diabetic E11.40 and Drug-induced erectile dysfunction N52.2 [facility] [id number] [place] [address] Sep, [facility] [id number] [place] [address] Aug, Diabetes type 2, controlled E11.9 [facility] [id number] [place] [address] Aug, Diabetic mononeuropathy associated with type 2 diabetes mellitus E11.41 [facility] [id number] [place] [address] Jul, [facility] [id number] [place] [address] Jul, Primary insomnia F51.01 [facility] [address] [place] [address] Jun, [facility] [id number] [place] [address] Jun, Diabetes E11.9 ; Primary insomnia F51.01 and Depression, unspecified depression type F32.9 [facility] [id number] [place] [address] Jun, [facility] [address], [place] [address] Jun, [facility] [address] [address] May, [facility] [address] [place] [address] May, Mood disorder F39 [facility] [id number] [place] [address] Apr, [facility] [id number] [place] [address] Mar, Acute cystitis without hematuria N30.00 [facility] [id number] [place] [address] Feb, Diabetes E11.9 [facility] [id number] [place] [address] January, [facility] [id number] [place] [address] January, [facility] [id number] [place] [address] January, Acute cystitis without hematuria N30.00 ; 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 ; Fatigue, unspecified type R53.83 and Weight loss, abnormal R63.4 [facility] [address] [address] January, [facility] [address] [place] [address] Dec, [facility] [id number] [place] [address] Nov, [facility] [address], [place] [address] Nov, Neuropathy, diabetic E11.40 [facility] [id number] [place] [address] Oct, Neuropathy, diabetic E11.40 [place] [id number] [place] [address] Oct, [place] [id number] [place] [address] Oct, [place] [address] [address] Oct, [place] [address] [address] Aug, [place] [address] [address] Aug, Type 2 diabetes mellitus with foot ulcer E11.621 ; Nausea R11.0 ; Other complications following infusion, transfusion and therapeutic injection, initial encounter T80.89XA ; Hyperlipidemia, mixed E78.2 and Nail ingrowing L60.0 [place] [id number] [place] [address] Jul, [place] [id number] [place] [address] Jul, Diabetes E11.9 [place] [id number] [place] [address] Jul, Type 2 diabetes mellitus with foot ulcer E11.621 and Non-pressure chronic ulcer of other part of left foot with unspecified severity L97.529 [place] [id number] [place] [address] Jun, Diabetes E11.9 ; Shoulder pain, left M25.512 ; Abdominal pain, lower R10.30 ; Hepatitis C, chronic B18.2 and Diabetes mellitus without mention of complication, type II or unspecified type, not stated as uncontrolled 250.00 [place] [id number] [place] [address] 07 Jun, 2015 Cellulitis, abdominal wall L03.311 and Nocturnal hypoxemia G47.34 [facility] [address], [place] [address] Jun, Diabetes mellitus without mention of complication, type II or unspecified type, not stated as uncontrolled 250.00 [facility] [address], [place] [address] May, Diabetes mellitus without mention of complication, type II or unspecified type, not stated as uncontrolled 250.00 [facility] [id number] [place] [address] May, Abdominal pain 789.00 [facility] [id number] [place] [address] May, [facility] [address] [address] May, [facility] [id number] [place] [address] May, Diabetes mellitus without mention of complication, type II or unspecified type, not stated as uncontrolled 250.00 [facility] [address], [place] [address] Apr, [facility] [address] [place] [address] Mar, [facility] [address], [place] [address] Mar, Diabetes mellitus without mention of complication, type II or unspecified type, not stated as uncontrolled 250.00 [facility] [id number] [address] Feb, Diabetes mellitus without mention of complication, type II or unspecified type, not stated as uncontrolled 250.00 and Chronic pain 338.29 [facility] [address], [place] [address] Feb, [facility] [address] [place] [address] January, Diabetes mellitus without mention of complication, type II or unspecified type, not stated as uncontrolled 250.00 and Chronic pain 338.29 [facility] [address], [place] [address] January, [facility] [address], [place] [address] Dec, [facility] [id number] [place] [address] Dec, [facility] [address], [place] [address] Oct, [facility] [id number] [place] [address] Oct, [facility] [address] [address] Oct, [facility] [address], [place] [address] Oct, [facility] [address], [place] [address] Oct, [facility] [address], [place] [address] Oct, [facility] [address], [place] [address] Oct, [facility] [address], [place] [address] Oct, [facility] [address], [place] [address] Oct, [facility] [address], [place] [address] Oct, [facility] [address], [place] [address] Oct, [facility] [address] [address] Oct, [facility] [place] [facility] [address] [id number] [place] [address] Sep, [facility] [place] [facility] [address] [id number] [place] [address] Sep, [facility] [place] [facility] [address] [id number] [place] [address] Aug, [facility] [place] [facility] [address] [id number] [place] [address] Aug, [facility] [place] [facility] [address] [id number] [place] [address] Aug, [facility] [place] [facility] [address] [id number] [place] [address] Aug, [facility] [place] [facility] [address] [id number] [place] [address] Aug, [facility] [place] [facility] [address] [id number] [place] [address] Aug, [facility] [place] [facility] [address] [id number] [place] [address] Aug, [facility] [place] [facility] [address] [facility] [id number] [place] [address] Aug, [facility] [place] [facility] [address] [id number] [place] [address] Aug, [facility] [place] [facility] [address] [id number] [place] [address] Aug, [facility] [place] [facility] [address] [id number] [place] [address] Jul, [facility] [place] [facility] [address] [id number] [place] [address] Jul, [facility] [place] [facility] [address] [id number] [place] [address] Jun, [facility] [place] [facility] [address] [id number] [place] [address] 29 Jun, 2014 [facility] [place] [facility] [address] [id number] [place] [address] Jun, [facility] [place] [facility] [address] [id number] [place] [address] 15 Jun, 2014 [facility] [place] [facility] [address] [id number] [place] [address] 14 Jun, 2014 [facility] [place] [facility] [address] [id number] [place] [address] Jun, [facility] [place] [facility] [address] [id number] [place] [address] Jun, [facility] [place] [facility] [address] [id number] [place] [address] 30 May, 2013 [facility] [place] [facility] [address] [id number] [place] [address] 30 May, 2013 [facility] [place] [facility] [address] [id number] [place] [address] 30 May, 2013 [facility] [place] [facility] [address] [id number] [place] [address] 30 May, 2013 [facility] [place] [facility] [address] [id number] [place] [address] 26 May, 2013 [facility] [place] [facility] [address] [id number] [place] [address] 26 Sep, 2013 [facility] [place] [facility] [address] [id number] [place] [address] 26 May, 2013 [facility] [place] [facility] [address] [id number] [place] [address] 26 May, 2013 [facility] [place] [facility] [address] [id number] [place] [address] 24 May, 2013 [facility] [place] [facility] [address] [id number] [place] [address] May, [facility] [place] [facility] [address] [id number] [place] [address] May, 2013 [facility] [place] [facility] [address] [id number] [place] [address] May, [facility] [place] [facility] [address] [id number] [place] [address] May, [facility] [place] [facility] [address] [id number] [place] [address] Mar, [facility] [place] [facility] [address] [id number] [place] [address] Mar, [facility] [place] [facility] [address] [id number] [place] [address] Mar, [facility] [place] [facility] [address] [id number] [place] [address] Mar, [facility] [place] [facility] [address] [id number] [place] [address] Mar, [facility] [place] [facility] [address] [id number] [place] [address] Mar, [facility] [place] [facility] [address] [id number] [place] [address] Feb, [facility] [place] [facility] [address] [id number] [place] [address] Feb, [facility] [place] [facility] [address] [id number] [place] [address] Feb, [facility] [place] [facility] [address] [id number] [place] [address] Feb, [facility] [place] [facility] [address] [id number] [place] [address] Feb, [facility] [place] [facility] [address] [id number] [place] [address] Feb, [facility] [place] [facility] [address] [id number] [place] [address] Feb, [facility] [address] [id number] [place] [address] Feb, [facility] [place] [facility] [address] [id number] [place] [address] Feb, [facility] [address] [id number] [place] [address] January, [facility] [place] [facility] [address] [id number] [place] [address] January, [facility] [place] [facility] [address] [id number] [place] [address] Dec, [facility] [place] [facility] [address] [id number] [place] [address] Dec, [facility] [place] [facility] [address] [id number] [place] [address] Dec, [facility] [address] [id number] [place] [address] Dec, [facility] [place] [facility] [address] [id number] [place] [address] Nov, [facility] [address] [id number] [place] [address] Nov, [facility] [place] [facility] [address] [id number] [place] [address] Nov, [facility] [place] [facility] [address] [id number] [place] [address] Nov, [facility] [place] [facility] [address] [id number] [place] [address] Nov, [facility] [place] [facility] [address] [id number] [place] [address] Nov, [facility] [place] [facility] [address] [id number] [place] [address] Nov, [facility] [address] [id number] [place] [address] Nov, [facility] [place] [facility] [address] [id number] [place] [address] Nov, [facility] [place] [facility] [address] [id number] [place] [address] Nov, [facility] [place] [facility] [address] [id number] [place] [address] Oct, [facility] [place] [facility] [address] [id number] [place] [address] Oct, [facility] [place] [facility] [address] [id number] [place] [address] Sep, [facility] [place] [facility] [address] [id number] [place] [address] Sep, [facility] [place] [facility] [address] [address] [id number] [place] [address] Sep, [facility] [place] [facility] [address] [id number] [place] [address] Aug, [facility] [place] [facility] [address] [id number] [place] [address] Aug, [facility] [place] [facility] [address] [id number] [place] [address] Aug, [facility] [place] [facility] [address] [id number] [place] [address] Aug, [facility] [place] [facility] [address] [id number] [place] [address] Jul, [facility] [place] [facility] [address] [id number] [place] [address] Jul, [facility] [place] [facility] [address] [id number] [place] [address] Jul, [facility] [place] [facility] [address] [id number] [place] [address] Jul, [facility] [place] [facility] [address] [id number] [place] [address] Jun, [facility] [place] [facility] [address] [id number] [place] [address] Jun, [facility] [place] [facility] [address] [id number] [place] [address] Jun, [facility] [place] [facility] [address] [id number] [place] [address] Jun, [facility] [place] [facility] [address] [id number] [place] [address] Jun, [facility] [place] [facility] [address] [id number] [place] [address] Jun, [facility] [place] [facility] [address] [id number] [place] [address] Jun, [facility] [place] [facility] [address] [id number] [place] [address] Jun, [facility] [place] [facility] [address] [id number] [place] [address] May, [facility] [place] [facility] [address] [id number] [place] [address] Apr, [facility] [place] [facility] [address] [id number] [place] [address] Mar, [facility] [place] [facility] [address] [id number] [place] [address] Mar, [facility] [place] [facility] [address] [id number] [place] [address] Feb, [facility] [place] [facility] [address] [id number] [place] [address] Feb, [facility] [place] [facility] [address] [id number] [place] [address] Feb, [facility] [place] [facility] [address] [id number] [place] [address] 24 Dec, 2012 [facility] [address] [id number] [place] [address] Dec, [facility] [place] [facility] [address] [id number] [place] [address] Dec, [facility] [place] [facility] [address] [id number] [place] [address] Nov, [facility] [place] [facility] [address] [id number] [place] [address] Oct, [facility] [place] [facility] [address] [id number] [place] [address] Oct, [facility] [address] [id number] [place] [address] Oct, [facility] [address] [id number] [place] [address] 08 Oct, 2012 [facility] [place] [facility] [address] [id number] [place] [address] Sep, [facility] [address] [id number] [place] [address] Sep, [facility] [place] [facility] [address] [id number] [place] [address] Aug, [facility] [place] [facility] [address] [id number] [place] [address] Aug, [facility] [place] [facility] [address] [id number] [place] [address] Aug, [facility] [place] [facility] [address] [id number] [place] [address] Aug, [facility] [place] [facility] [address] [id number] [place] [address] Aug, [facility] [place] [facility] [address] [id number], [place] [address] 21 Aug, 2012 [facility] [place] [facility] [address] [id number] [place] [address] 18 Aug, 2012 [facility] [place] [facility] [address] [id number] [place] [address] 18 Aug, 2012 [facility] [place] [facility] [address] [id number] [place] [address] 14 Aug, 2012 [facility] [place] [facility] [address] [id number] [place] [address] 14 Aug, 2012 [facility] [place] [facility] [address] [id number] [place] [address] 10 Aug, 2012 [facility] [place] [facility] [address] [id number] [place] [address] 10 Aug, 2012 [facility] [place] [facility] [address] [id number] [place] [address] 30 Jul, 2012 [facility] [place] [facility] [address] [id number] [place] [address] 30 Jul, 2012 [facility] [place] [facility] [address] [id number] [place] [address] 26 Jul, 2012 [facility] [place] [facility] [address] [id number] [place] [address] 26 Jul, 2012 [facility] [place] [facility] [address] [id number] [place] [address] Jul, [facility] [place] [facility] [address] [id number], [place] [address] 20 Jul, 2012 [facility] [place] [facility] [address] [id number] [place] [address] 19 Jul, 2012 [facility] [place] [facility] [address] [id number] [place] [address] 19 Jul, 2012 [facility] [place] [facility] [address] [facility] [id number] [place] [address] 16 Jul, 2012 [facility] [place] [facility] [address] [id number] [place] [address] Jul, [facility] [place] [facility] [address] [id number] [place] [address] Jun, [facility] [place] [facility] [address] [id number] [place] [address] Jun, [facility] [place] [facility] [address] [id number] [place] [address] Jun, [facility] [place] [facility] [address] [id number] [place] [address] Jun, [facility] [place] [facility] [address] [id number] [place] [address] Apr, [facility] [place] [facility] [address] [id number] [place] [address] Mar, [facility] [place] [facility] [address] [id number] [place] [address] Mar, [facility] [place] [facility] [address] [id number] [place] [address] Mar, [facility] [place] [facility] [address] [id number] [place] [address] Mar, [facility] [place] [facility] [address] [id number] [place] [address] Mar, [facility] [place] [facility] [address] [id number] [place] [address] Feb, [facility] [place] [facility] [address] [id number] [place] [address] Feb, [facility] [place] [facility] [address] [id number] [place] [address] January, [facility] [place] [facility] [address] [id number] [place] [address] January, [facility] [place] [facility] [address] [id number] [place] [address] Nov, [facility] [place] [facility] [address] [id number] [place] [address] Nov, [facility] [place] [facility] [address] [id number] [place] [address] 16 Nov, 2011 [facility] [place] [facility] [address] [id number] [place] [address] Nov, [facility] [place] [facility] [address] [id number] [place] [address] Nov, [facility] [place] [facility] [address] [id number] [place] [address] Oct, [facility] [place] [facility] [address] [id number] [place] [address] Jul, [facility] [place] [facility] [address] [id number] [place] [address] Jul, [facility] [place] [facility] [address] [id number] [place] [address] Jul, [facility] [place] [facility] [address] [id number] [place] [address] Jun, [facility] [place] [facility] [address] [id number] [place] [address] Jun, [facility] [place] [facility] [address] [id number], [place] [address] Dec, [facility] [place] [facility] [address] [id number], [place] [address] Aug, [facility] [place] [facility] [address] [id number] [place] [address] Aug, [facility] [place] [facility] [address] [id number] [place] [address] Jul, [facility] [place] [facility] [address] [id number] [place] [address] Jul, [facility] [place] [facility] [address] [facility] [id number], [place] [address] Jul, [facility] [address] [id number], [place] [address] Jun, [facility] [address] [id number], [place] [address] Jun, [facility] [address] [id number], [place] [address] Jun, [facility] [id number], [place] [address] May, [facility] [id number], [place] [address] Feb, [facility] [address] [id number], [place] [address] January, IMMUNIZATIONS No Known Immunizations SOCIAL HISTORY [...]
--- OUTSIDE RECORDS SUMMARY | 2019-04-25 17:21 | XMS REPORT ---
Author Author RONALD KELLEY Organization [facility] Address [address] [place] [address] Care Team Providers Care Roving Department End Finder Name Role Phone RONALD KELLEY Unavailable PROBLEMS Type Condition ICD9-CM Code QGM28-XZ Code Onset Dates Condition Status SNOMED Code Problem Hypertension, benign I10 Active 13032701 Problem Neuropathy, diabetic E11.40 Active 287626573 Problem Hyperlipidemia, mixed E78.2 Active 816809043 Problem Mood disorder F39 Active 38812452 Problem Primary insomnia F51.01 Active 372220069 Problem Diabetes E11.9 Active 106742930 Problem Precordial pain R07.2 Active 23293000 Problem Type 2 diabetes mellitus without complications E11.9 Active 138558471 Problem Depression, unspecified depression type F32.9 Active 67776229 Problem Chronic obstructive pulmonary disease, unspecified COPD type J44.9 Active 33830615 Problem Cirrhosis of liver without ascites, unspecified hepatic cirrhosis type K74.60 Active 76271630 ALLERGIES No Information ENCOUNTERS Encounter Location Date Diagnosis [place] [id number] [place] [address] January, [place] [facility] [id number] [place] [address] January, Diabetes E11.9 [facility] [id number] [place] [address] January, Diabetes E11.9 [facility] [id number] [place] [address] Dec, Diabetes E11.9 ; Mood disorder F39 ; Hyperlipidemia, mixed E78.2 ; Precordial pain R07.2 ; Type 2 diabetes mellitus with hyperglycemia E11.65 and USP current use of insulin Z79.4 [facility] [id number] [place] [address] Dec, [facility] [address], [place] [address] Nov, [facility] [address], [place] [address] Nov, Cirrhosis of liver without ascites, unspecified hepatic cirrhosis type K74.60 ; Type 2 diabetes mellitus without complications E11.9 ; Precordial pain R07.2 and BMI 40.0-44.9, adult Z68.41 [facility] [address], [place] [address] Nov, Cirrhosis of liver without ascites, unspecified hepatic cirrhosis type K74.60 [place] [address] [address] Oct, [place] [id number] [address] Oct, Cirrhosis of liver without ascites, unspecified hepatic cirrhosis type K74.60 ; Chronic obstructive pulmonary disease, unspecified COPD type J44.9 and Influenza-like illness R69 [facility] [address] [address] Oct, [facility] [address], [place] [address] Oct, [facility] [address], [place] [address] Oct, Cirrhosis of liver without ascites, unspecified hepatic cirrhosis type K74.60 [facility] [address], [place] [address] Sep, [facility] [address], [place] [address] Sep, Chronic obstructive pulmonary disease, unspecified COPD type J44.9 [facility] [address], [place] [address] Sep, Cirrhosis of liver without ascites, unspecified hepatic cirrhosis type K74.60 and Chronic obstructive pulmonary disease, unspecified COPD type J44.9 [facility] [id number] [place] [address] Aug, [facility] [address] [place] [address] Aug, Cirrhosis of liver without ascites, unspecified hepatic cirrhosis type K74.60 [facility] [id number] [place] [address] Aug, [facility] [id number] [place] [address] Aug, [facility] [id number] [place] [address] Jul, [facility] [id number] [place] [address] Jul, Diabetes E11.9 and Viral gastroenteritis A08.4 [facility] [id number] [place] [address] Jul, Cirrhosis of liver without ascites, unspecified hepatic cirrhosis type K74.60 and Chronic obstructive pulmonary disease, unspecified COPD type J44.9 [facility] [address], [place] [address] Jul, [facility] [id number] [place] [address] Jul, Cirrhosis of liver without ascites, unspecified hepatic cirrhosis type K74.60 [facility] [address], [place] [address] Jul, [facility] [id number] [place] [address] Jul, [facility] [address], [place] [address] Jun, Cirrhosis of liver without ascites, unspecified hepatic cirrhosis type K74.60 and Viral gastroenteritis A08.4 [facility] [id number] [place] [address] Jun, Nausea and vomiting, intractability of vomiting not specified, unspecified vomiting type R11.2 ; Acute nonintractable headache, unspecified headache type R51 and History of encephalopathy Z86.69 [facility] [id number] [place] [address] Jun, [facility] [address] [address] Jun, Neuropathy, diabetic E11.40 and Hypertension, benign I10 [facility] [address] [address] Jun, [facility] [address] [address] Jun, [facility] [address] [id number] Jun, [facility] [address] [address] Jun, [facility] [address] [address] Jun, [facility] [address] [address] Jun, Viral gastroenteritis A08.4 and Diabetes E11.9 [facility] [address] [address] May, Lumbago with sciatica, left side M54.42 [facility] [address] [address] 14 May, 2017 Lumbago with sciatica, left side M54.42 [facility] [id number] [place] [address] May, [facility] [address] [address] May, [facility] [address], [place] [address] Apr, Lumbago with sciatica, left side M54.42 ; Neuropathy, diabetic E11.40 and Mood disorder F39 [facility] [address], [place] [address] Apr, [facility] [id number] [place] [address] Apr, [facility] [id number] [place] [address] Mar, Other chronic pain G89.29 and Type 2 diabetes mellitus without complications E11.9 [facility] [id number] [place] [address] Mar, Other chronic pain G89.29 [facility] [id number] [place] [address] Feb, Other chronic pain G89.29 [facility] [id number] [place] [address] January, Shoulder pain, left M25.512 and Other chronic pain G89.29 [facility] [address], [place] [address] January, [facility] [address], [place] [address] January, Drug-induced erectile dysfunction N52.2 [facility] [address], [place] [address] January, Diabetes E11.9 [facility] [id number] [place] [address] January, Diabetes E11.9 ; Chronic pain disorder G89.4 ; Lumbago with sciatica, left side M54.42 and Other acute postprocedural pain G89.18 [facility] [id number] [place] [address] Dec, Drug-induced erectile dysfunction N52.2 [facility] [id number] [place] [address] Nov, Drug-induced erectile dysfunction N52.2 [facility] [address], [place] [address] Nov, Drug-induced erectile dysfunction N52.2 [facility] [id number] [place] [address] Oct, Diabetes E11.9 [facility] [id number] [place] [address] Oct, Diabetes E11.9 ; Neuropathy, diabetic E11.40 and Drug-induced erectile dysfunction N52.2 [facility] [id number] [place] [address] Sep, [facility] [id number] [place] [address] Aug, Diabetes type 2, controlled E11.9 [facility] [id number] [place] [address] Aug, Diabetic mononeuropathy associated with type 2 diabetes mellitus E11.41 [facility] [id number] [place] [address] Jul, [facility] [id number] [place] [address] Jul, Primary insomnia F51.01 [facility] [id number] [place] [address] Jun, [facility] [id number] [place] [address] Jun, Diabetes E11.9 ; Primary insomnia F51.01 and Depression, unspecified depression type F32.9 [facility] [id number] [place] [address] Jun, [facility] [address], [place] [address] Jun, [facility] [address] [address] May, [facility] [id number] [place] [address] May, Mood disorder F39 [facility] [id number] [place] [address] Apr, [facility] [id number] [place] [address] Mar, Acute cystitis without hematuria N30.00 [facility] [id number] [place] [address] Feb, Diabetes E11.9 [facility] [id number] [place] [address] January, [facility] [id number] [place] [address] January, [facility] [id number] [place] [address] January, Acute cystitis without hematuria N30.00 ; 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 ; Fatigue, unspecified type R53.83 and Weight loss, abnormal R63.4 [facility] [address] [address] January, [facility] [id number] [place] [address] Dec, [facility] [id number] [place] [address] Nov, [facility] [address], [place] [address] Nov, Neuropathy, diabetic E11.40 [facility] [id number] [place] [address] Oct, Neuropathy, diabetic E11.40 [place] [id number] [place] [address] Oct, [place] [id number] [place] [address] Oct, [place] [address] [address] Oct, [place] [address] [address] Aug, [place] [address] [address] Aug, Type 2 diabetes mellitus with foot ulcer E11.621 ; Nausea R11.0 ; Other complications following infusion, transfusion and therapeutic injection, initial encounter T80.89XA ; Hyperlipidemia, mixed E78.2 and Nail ingrowing L60.0 [place] [id number] [place] [address] Jul, [place] [id number] [place] [address] Jul, Diabetes E11.9 [place] [id number] [place] [address] Jul, Type 2 diabetes mellitus with foot ulcer E11.621 and Non-pressure chronic ulcer of other part of left foot with unspecified severity L97.529 [place] [address] [place] [address] Jun, Diabetes E11.9 ; Shoulder pain, left M25.512 ; Abdominal pain, lower R10.30 ; Diabetes mellitus without mention of complication, type II or unspecified type, not stated as uncontrolled 250.00 and Hepatitis C, chronic B18.2 [place] [id number] [place] [address] Jun, Cellulitis, abdominal wall L03.311 and Nocturnal hypoxemia G47.34 [facility] [address], [place] [address] Jun, Diabetes mellitus without mention of complication, type II or unspecified type, not stated as uncontrolled 250.00 [facility] [address], [place] [address] May, Diabetes mellitus without mention of complication, type II or unspecified type, not stated as uncontrolled 250.00 [facility] [id number] [place] [address] May, Abdominal pain 789.00 [facility] [id number] [place] [address] May, [facility] [address] [address] May, [facility] [id number] [place] [address] May, Diabetes mellitus without mention of complication, type II or unspecified type, not stated as uncontrolled 250.00 [facility] [address], [place] [address] Apr, [facility] [address] [place] [address] Mar, [facility] [address], [place] [address] Mar, Diabetes mellitus without mention of complication, type II or unspecified type, not stated as uncontrolled 250.00 [facility] [id number] [address] Feb, Diabetes mellitus without mention of complication, type II or unspecified type, not stated as uncontrolled 250.00 and Chronic pain 338.29 [facility] [address], [place] [address] Feb, [facility] [address] [place] [address] January, Diabetes mellitus without mention of complication, type II or unspecified type, not stated as uncontrolled 250.00 and Chronic pain 338.29 [facility] [address], [place] [address] January, [facility] [address], [place] [address] Dec, [facility] [id number] [place] [address] Dec, [facility] [address], [place] [address] Oct, [facility] [id number] [place] [address] Oct, [facility] [address] [address] Oct, [facility] [address], [place] [address] Oct, [facility] [address], [place] [address] Oct, [facility] [address], [place] [address] Oct, [facility] [address], [place] [address] Oct, [facility] [address], [place] [address] Oct, [facility] [address], [place] [address] Oct, [facility] [address], [place] [address] Oct, [facility] [address], [place] [address] Oct, [facility] [address] [address] Oct, [facility] [place] [facility] [address] [id number] [place] [address] Sep, [facility] [place] [facility] [address] [id number] [place] [address] Sep, [facility] [place] [facility] [address] [id number] [place] [address] Aug, [facility] [place] [facility] [address] [id number] [place] [address] Aug, [facility] [place] [facility] [address] [id number] [place] [address] Aug, [facility] [place] [facility] [address] [id number] [place] [address] Aug, [facility] [place] [facility] [address] [id number] [place] [address] Aug, [facility] [place] [facility] [address] [id number] [place] [address] Aug, [facility] [place] [facility] [address] [id number] [place] [address] Aug, [facility] [place] [facility] [address] [facility] [id number] [place] [address] Aug, [facility] [place] [facility] [address] [id number] [place] [address] Aug, [facility] [place] [facility] [address] [id number] [place] [address] Aug, [facility] [place] [facility] [address] [id number] [place] [address] Jul, [facility] [place] [facility] [address] [id number] [place] [address] Jul, [facility] [place] [facility] [address] [id number] [place] [address] Jun, [facility] [place] [facility] [address] [id number] [place] [address] 29 Jun, 2014 [facility] [place] [facility] [address] [id number] [place] [address] Jun, [facility] [place] [facility] [address] [id number] [place] [address] 15 Jun, 2014 [facility] [place] [facility] [address] [id number] [place] [address] 14 Jun, 2014 [facility] [place] [facility] [address] [id number] [place] [address] Jun, [facility] [place] [facility] [address] [id number] [place] [address] Jun, [facility] [place] [facility] [address] [id number] [place] [address] 30 May, 2013 [facility] [place] [facility] [address] [id number] [place] [address] 30 May, 2013 [facility] [place] [facility] [address] [id number] [place] [address] 30 May, 2013 [facility] [place] [facility] [address] [id number] [place] [address] 30 May, 2013 [facility] [place] [facility] [address] [id number] [place] [address] 26 May, 2013 [facility] [place] [facility] [address] [id number] [place] [address] 26 Sep, 2013 [facility] [place] [facility] [address] [id number] [place] [address] 26 May, 2013 [facility] [place] [facility] [address] [id number] [place] [address] 26 May, 2013 [facility] [place] [facility] [address] [id number] [place] [address] 24 May, 2013 [facility] [place] [facility] [address] [id number] [place] [address] May, [facility] [place] [facility] [address] [id number] [place] [address] May, 2013 [facility] [place] [facility] [address] [id number] [place] [address] May, [facility] [place] [facility] [address] [id number] [place] [address] May, [facility] [place] [facility] [address] [id number] [place] [address] Mar, [facility] [place] [facility] [address] [id number] [place] [address] Mar, [facility] [place] [facility] [address] [id number] [place] [address] Mar, [facility] [place] [facility] [address] [id number] [place] [address] Mar, [facility] [place] [facility] [address] [id number] [place] [address] Mar, [facility] [place] [facility] [address] [id number] [place] [address] Mar, [facility] [place] [facility] [address] [id number] [place] [address] Feb, [facility] [place] [facility] [address] [id number] [place] [address] Feb, [facility] [place] [facility] [address] [id number] [place] [address] Feb, [facility] [place] [facility] [address] [id number] [place] [address] Feb, [facility] [place] [facility] [address] [id number] [place] [address] Feb, [facility] [place] [facility] [address] [id number] [place] [address] Feb, [facility] [place] [facility] [address] [id number] [place] [address] Feb, [facility] [address] [id number] [place] [address] Feb, [facility] [place] [facility] [address] [id number] [place] [address] Feb, [facility] [address] [id number] [place] [address] January, [facility] [place] [facility] [address] [id number] [place] [address] January, [facility] [place] [facility] [address] [id number] [place] [address] Dec, [facility] [place] [facility] [address] [id number] [place] [address] Dec, [facility] [place] [facility] [address] [id number] [place] [address] Dec, [facility] [address] [id number] [place] [address] Dec, [facility] [place] [facility] [address] [id number] [place] [address] Nov, [facility] [address] [id number] [place] [address] Nov, [facility] [place] [facility] [address] [id number] [place] [address] Nov, [facility] [place] [facility] [address] [id number] [place] [address] Nov, [facility] [place] [facility] [address] [id number] [place] [address] Nov, [facility] [place] [facility] [address] [id number] [place] [address] Nov, [facility] [place] [facility] [address] [id number] [place] [address] Nov, [facility] [address] [id number] [place] [address] Nov, [facility] [place] [facility] [address] [id number] [place] [address] Nov, [facility] [place] [facility] [address] [id number] [place] [address] Nov, [facility] [place] [facility] [address] [id number] [place] [address] Oct, [facility] [place] [facility] [address] [id number] [place] [address] Oct, [facility] [place] [facility] [address] [id number] [place] [address] Sep, [facility] [place] [facility] [address] [id number] [place] [address] Sep, [facility] [place] [facility] [address] [id number] [place] [address] Sep, [facility] [place] [facility] [address] [id number] [place] [address] Aug, [facility] [place] [facility] [address] [id number] [place] [address] Aug, [facility] [place] [facility] [address] [id number] [place] [address] Aug, [facility] [place] [facility] [address] [id number] [place] [address] Aug, [facility] [place] [facility] [address] [id number] [place] [address] Jul, [facility] [place] [facility] [address] [id number] [place] [address] Jul, [facility] [place] [facility] [address] [id number] [place] [address] Jul, [facility] [place] [facility] [address] [id number] [place] [address] Jul, [facility] [place] [facility] [address] [id number] [place] [address] Jun, [facility] [place] [facility] [address] [id number] [place] [address] Jun, [facility] [place] [facility] [address] [address] [id number] [place] [address] Jun, [facility] [place] [facility] [address] [id number] [place] [address] Jun, [facility] [place] [facility] [address] [id number] [place] [address] Jun, [facility] [place] [facility] [address] [id number] [place] [address] Jun, [facility] [place] [facility] [address] [id number] [place] [address] Jun, [facility] [place] [facility] [address] [id number] [place] [address] Jun, [facility] [place] [facility] [address] [id number] [place] [address] May, [facility] [place] [facility] [address] [id number] [place] [address] Apr, [facility] [place] [facility] [address] [id number] [place] [address] Mar, [facility] [place] [facility] [address] [id number] [place] [address] Mar, [facility] [place] [facility] [address] [id number] [place] [address] Feb, [facility] [place] [facility] [address] [id number] [place] [address] Feb, [facility] [place] [facility] [address] [id number] [place] [address] Feb, [facility] [place] [facility] [address] [id number] [place] [address] 24 Dec, 2012 [facility] [address] [id number] [place] [address] Dec, [facility] [place] [facility] [address] [id number] [place] [address] Dec, [facility] [place] [facility] [address] [id number] [place] [address] Nov, [facility] [place] [facility] [address] [id number] [place] [address] Oct, [facility] [place] [facility] [address] [id number] [place] [address] Oct, [facility] [address] [id number] [place] [address] Oct, [facility] [address] [id number] [place] [address] 08 Oct, 2012 [facility] [place] [facility] [address] [id number] [place] [address] Sep, [facility] [address] [id number] [place] [address] Sep, [facility] [place] [facility] [address] [id number] [place] [address] Aug, [facility] [place] [facility] [address] [id number] [place] [address] Aug, [facility] [place] [facility] [address] [id number] [place] [address] Aug, [facility] [place] [facility] [address] [id number] [place] [address] Aug, [facility] [place] [facility] [address] [id number] [place] [address] Aug, [facility] [place] [facility] [address] [id number], [place] [address] 21 Aug, 2012 [facility] [place] [facility] [address] [id number] [place] [address] 18 Aug, 2012 [facility] [place] [facility] [address] [id number] [place] [address] 18 Aug, 2012 [facility] [place] [facility] [address] [id number] [place] [address] 14 Aug, 2012 [facility] [place] [facility] [address] [id number] [place] [address] 14 Aug, 2012 [facility] [place] [facility] [address] [id number] [place] [address] 10 Aug, 2012 [facility] [place] [facility] [address] [id number] [place] [address] 10 Aug, 2012 [facility] [place] [facility] [address] [id number] [place] [address] 30 Jul, 2012 [facility] [place] [facility] [address] [id number] [place] [address] 30 Jul, 2012 [facility] [place] [facility] [address] [id number] [place] [address] 26 Jul, 2012 [facility] [place] [facility] [address] [id number] [place] [address] 26 Jul, 2012 [facility] [place] [facility] [address] [id number] [place] [address] Jul, [facility] [place] [facility] [address] [id number], [place] [address] 20 Jul, 2012 [facility] [place] [facility] [address] [id number] [place] [address] 19 Jul, 2012 [facility] [place] [facility] [address] [id number] [place] [address] 19 Jul, 2012 [facility] [place] [facility] [address] [facility] [id number] [place] [address] 16 Jul, 2012 [facility] [place] [facility] [address] [id number] [place] [address] Jul, [facility] [place] [facility] [address] [id number] [place] [address] Jun, [facility] [place] [facility] [address] [id number] [place] [address] Jun, [facility] [place] [facility] [address] [id number] [place] [address] Jun, [facility] [place] [facility] [address] [id number] [place] [address] Jun, [facility] [place] [facility] [address] [id number] [place] [address] Apr, [facility] [place] [facility] [address] [id number] [place] [address] Mar, [facility] [place] [facility] [address] [id number] [place] [address] Mar, [facility] [place] [facility] [address] [id number] [place] [address] Mar, [facility] [place] [facility] [address] [id number] [place] [address] Mar, [facility] [place] [facility] [address] [id number] [place] [address] Mar, [facility] [place] [facility] [address] [id number] [place] [address] Feb, [facility] [place] [facility] [address] [id number] [place] [address] Feb, [facility] [place] [facility] [address] [id number] [place] [address] January, [facility] [place] [facility] [address] [id number] [place] [address] January, [facility] [place] [facility] [address] [id number] [place] [address] Nov, [facility] [place] [facility] [address] [id number] [place] [address] Nov, [facility] [place] [facility] [address] [id number] [place] [address] 16 Nov, 2011 [facility] [place] [facility] [address] [id number] [place] [address] Nov, [facility] [place] [facility] [address] [id number] [place] [address] Nov, [facility] [place] [facility] [address] [id number] [place] [address] Oct, [facility] [place] [facility] [address] [id number] [place] [address] Jul, [facility] [place] [facility] [address] [id number] [place] [address] Jul, [facility] [place] [facility] [address] [id number] [place] [address] Jul, [facility] [place] [facility] [address] [id number] [place] [address] Jun, [facility] [place] [facility] [address] [id number] [place] [address] Jun, [facility] [place] [facility] [address] [id number], [place] [address] Dec, [facility] [place] [facility] [address] [id number], [place] [address] Aug, [facility] [place] [facility] [address] [id number] [place] [address] Aug, [facility] [place] [facility] [address] [id number] [place] [address] Jul, [facility] [place] [facility] [address] [id number] [place] [address] Jul, [facility] [place] [facility] [address] [facility] [id number], [place] [address] Jul, [facility] [address] [id number], [place] [address] Jun, [facility] [address] [id number], [place] [address] Jun, [facility] [address] [id number], [place] [address] Jun, [facility] [id number], [place] [address] May, [facility] [id number], [place] [address] Feb, [facility] [address] [id number], [place] [address] January, IMMUNIZATIONS No Known Immunizations SOCIAL HISTORY Never Assessed REASON FOR VISIT Medication Refill Request PLAN OF CARE VITAL SIGNS MEDICATIONS Medication [...]
--- OUTSIDE RECORDS SUMMARY | 2019-04-25 17:22 | XMS REPORT ---
Author Author RONALD KELLEY Organization [facility] [place] Address [address] [place] [address] Care Team Providers Care In School Suspension Coordinator Name Role Phone RONALD KELLEY Unavailable PROBLEMS Type Condition ICD9-CM Code RHN75-HP Code Onset Dates Condition Status SNOMED Code Problem Hypertension, benign I10 Active 47478078 Problem Neuropathy, diabetic E11.40 Active 144662287 Problem Hyperlipidemia, mixed E78.2 Active 911121515 Problem Mood disorder F39 Active 42101616 Problem Primary insomnia F51.01 Active 708897926 Problem Diabetes E11.9 Active 200964480 Problem Precordial pain R07.2 Active 50297552 Problem Type 2 diabetes mellitus without complications E11.9 Active 447968968 Problem Depression, unspecified depression type F32.9 Active 27537905 Problem Chronic obstructive pulmonary disease, unspecified COPD type J44.9 Active 02266436 Problem Cirrhosis of liver without ascites, unspecified hepatic cirrhosis type K74.60 Active [id number] ALLERGIES No Information ENCOUNTERS Encounter Location Date Diagnosis [facility] [place] [id number] [place] [address] January, [facility] [place] [id number] [place] [address] January, Diabetes E11.9 [facility] [place] [id number] [place] [address] January, Diabetes E11.9 [facility] [place] [id number] [place] [address] Dec, Diabetes E11.9 ; Mood disorder F39 ; Hyperlipidemia, mixed E78.2 ; Precordial pain R07.2 ; Type 2 diabetes mellitus with hyperglycemia E11.65 and assisted current use of insulin Z79.4 [facility] [place] [id number] [place] [address] Dec, [facility] [place] [address], [place] [address] Nov, [facility] [place] [address], [place] [address] Nov, Cirrhosis of liver without ascites, unspecified hepatic cirrhosis type K74.60 ; Type 2 diabetes mellitus without complications E11.9 ; Precordial pain R07.2 and BMI 40.0-44.9, adult Z68.41 [facility] [place] [address], [place] [address] Nov, Cirrhosis of liver without ascites, unspecified hepatic cirrhosis type K74.60 [address] [place] [id number], [place] [address] Oct, [place] [id number] [address] Oct, Cirrhosis of liver without ascites, unspecified hepatic cirrhosis type K74.60 ; Chronic obstructive pulmonary disease, unspecified COPD type J44.9 and Influenza-like illness R69 [facility] [place] [address], [place] [address] Oct, [facility] [place] [address], [place] [address] Oct, [facility] [place] [id number], [place] [address] Oct, Cirrhosis of liver without ascites, unspecified hepatic cirrhosis type K74.60 [facility] [place] [address], [place] [address] Sep, [facility] [place] [id number], [place] [address] Sep, Chronic obstructive pulmonary disease, unspecified COPD type J44.9 [facility] [place] [address], [place] [address] Sep, Cirrhosis of liver without ascites, unspecified hepatic cirrhosis type K74.60 and Chronic obstructive pulmonary disease, unspecified COPD type J44.9 [facility] [place] [id number] [place] [address] Aug, [facility] [place] [id number] [place] [address] Aug, Cirrhosis of liver without ascites, unspecified hepatic cirrhosis type K74.60 [facility] [place] [id number] [place] [address] Aug, [facility] [place] [id number] [place] [address] Aug, [facility] [place] [id number] [place] [address] Jul, [facility] [place] [id number] [place] [address] Jul, Diabetes E11.9 and Viral gastroenteritis A08.4 [facility] [place] [id number] [place] [address] Jul, Cirrhosis of liver without ascites, unspecified hepatic cirrhosis type K74.60 and Chronic obstructive pulmonary disease, unspecified COPD type J44.9 [facility] [place] [id number], [place] [address] Jul, [facility] [place] [id number] [place] [address] Jul, Cirrhosis of liver without ascites, unspecified hepatic cirrhosis type K74.60 [facility] [place] [id number], [place] [address] Jul, [facility] [place] [id number] [place] [address] Jul, [facility] [place] [id number], [place] [address] Jun, Cirrhosis of liver without ascites, unspecified hepatic cirrhosis type K74.60 and Viral gastroenteritis A08.4 [facility] [id number] [place] [address] Jun, Nausea and vomiting, intractability of vomiting not specified, unspecified vomiting type R11.2 ; Acute nonintractable headache, unspecified headache type R51 and History of encephalopathy Z86.69 [facility] [place] [id number] [place] [address] Jun, [facility] [place] [address] [address] Jun, Neuropathy, diabetic E11.40 and Hypertension, benign I10 [facility] [place] [address] [address] Jun, [facility] [place] [address] [address] Jun, [facility] [address] [id number] Jun, [facility] [place] [address] [address] Jun, [facility] [place] [address] [address] Jun, [facility] [place] [address] [address] Jun, Viral gastroenteritis A08.4 and Diabetes E11.9 [facility] [place] [address] [address] May, Lumbago with sciatica, left side M54.42 [facility] [place] [address] [address] 14 May, 2017 Lumbago with sciatica, left side M54.42 [facility] [place] [id number] [place] [address] May, [facility] [place] [address] [address] May, [facility] [place] [id number], [place] [address] Apr, Lumbago with sciatica, left side M54.42 ; Neuropathy, diabetic E11.40 and Mood disorder F39 [facility] [place] [id number], [place] [address] Apr, [facility] [place] [id number] [place] [address] Apr, [facility] [place] [id number] [place] [address] Mar, Other chronic pain G89.29 and Type 2 diabetes mellitus without complications E11.9 [facility] [place] [id number] [place] [address] Mar, Other chronic pain G89.29 [facility] [place] [id number] [place] [address] Feb, Other chronic pain G89.29 [facility] [place] [id number] [place] [address] January, Shoulder pain, left M25.512 and Other chronic pain G89.29 [facility] [place] [id number], [place] [address] January, [facility] [place] [id number], [place] [address] January, Drug-induced erectile dysfunction N52.2 [facility] [place] [id number], [place] [address] January, Diabetes E11.9 [facility] [place] [id number] [place] [address] January, Diabetes E11.9 ; Chronic pain disorder G89.4 ; Lumbago with sciatica, left side M54.42 and Other acute postprocedural pain G89.18 [facility] [place] [id number] [place] [address] Dec, Drug-induced erectile dysfunction N52.2 [facility] [place] [id number] [place] [address] Nov, Drug-induced erectile dysfunction N52.2 [facility] [place] [id number], [place] [address] Nov, Drug-induced erectile dysfunction N52.2 [facility] [place] [id number] [place] [address] Oct, Diabetes E11.9 [facility] [place] [id number] [place] [address] Oct, Diabetes E11.9 ; Neuropathy, diabetic E11.40 and Drug-induced erectile dysfunction N52.2 [facility] [place] [id number] [place] [address] Sep, [facility] [place] [id number] [place] [address] Aug, Diabetes type 2, controlled E11.9 [facility] [place] [id number] [place] [address] Aug, Diabetic mononeuropathy associated with type 2 diabetes mellitus E11.41 [facility] [place] [id number] [place] [address] Jul, [facility] [place] [id number] [place] [address] Jul, Primary insomnia F51.01 [facility] [place] [id number] [place] [address] Jun, [facility] [place] [id number] [place] [address] Jun, Diabetes E11.9 ; Primary insomnia F51.01 and Depression, unspecified depression type F32.9 [facility] [place] [id number] [place] [address] Jun, [facility] [place] [id number], [place] [address] Jun, [facility] [place] [id number], [place] [address] May, [facility] [place] [id number] [place] [address] May, Mood disorder F39 [facility] [place] [id number] [place] [address] Apr, [facility] [place] [id number] [place] [address] Mar, Acute cystitis without hematuria N30.00 [facility] [place] [id number] [place] [address] Feb, Diabetes E11.9 [facility] [place] [id number] [place] [address] January, [facility] [place] [id number] [place] [address] January, [facility] [place] [id number] [place] [address] January, Acute cystitis without hematuria N30.00 ; 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 ; Fatigue, unspecified type R53.83 and Weight loss, abnormal R63.4 [facility] [place] [id number], [place] [address] January, [facility] [place] [id number] [place] [address] Dec, [facility] [place] [id number] [place] [address] Nov, [facility] [place] [address], [place] [address] Nov, Neuropathy, diabetic E11.40 [facility] [place] [id number] [place] [address] Oct, Neuropathy, diabetic E11.40 [facility] [place] [id number] [place] [address] Oct, [place] [id number] [place] [address] Oct, [place] [address] [address] Oct, [place] [address] [address] Aug, [place] [address] [address] Aug, Type 2 diabetes mellitus with foot ulcer E11.621 ; Nausea R11.0 ; Other complications following infusion, transfusion and therapeutic injection, initial encounter T80.89XA ; Hyperlipidemia, mixed E78.2 and Nail ingrowing L60.0 [place] [id number] [place] [address] Jul, [place] [id number] [place] [address] Jul, Diabetes E11.9 [place] [id number] [place] [address] Jul, Type 2 diabetes mellitus with foot ulcer E11.621 and Non-pressure chronic ulcer of other part of left foot with unspecified severity L97.529 [place] [id number] [place] [address] Jun, Diabetes E11.9 ; Shoulder pain, left M25.512 ; Abdominal pain, lower R10.30 ; Hepatitis C, chronic B18.2 and Diabetes mellitus without mention of complication, type II or unspecified type, not stated as uncontrolled 250.00 [place] [id number] [place] [address] 07 Jun, 2015 Cellulitis, abdominal wall L03.311 and Nocturnal hypoxemia G47.34 [facility] [place] [id number], [place] [address] Jun, Diabetes mellitus without mention of complication, type II or unspecified type, not stated as uncontrolled 250.00 [facility] [place] [id number], [place] [address] May, Diabetes mellitus without mention of complication, type II or unspecified type, not stated as uncontrolled 250.00 [facility] [place] [id number] [place] [address] May, Abdominal pain 789.00 [facility] [place] [id number] [place] [address] May, [facility] [place] [id number] [place] [address] May, [facility] [place] [id number] [place] [address] May, Diabetes mellitus without mention of complication, type II or unspecified type, not stated as uncontrolled 250.00 [facility] [place] [id number], [place] [address] Apr, [facility] [place] [id number] [place] [address] Mar, [facility] [place] [id number], [place] [address] Mar, Diabetes mellitus without mention of complication, type II or unspecified type, not stated as uncontrolled 250.00 [facility] [place] [id number], [place] [address] Feb, Diabetes mellitus without mention of complication, type II or unspecified type, not stated as uncontrolled 250.00 and Chronic pain 338.29 [facility] [place] [id number], [place] [address] Feb, [facility] [place] [id number] [place] [address] January, Diabetes mellitus without mention of complication, type II or unspecified type, not stated as uncontrolled 250.00 and Chronic pain 338.29 [facility] [place] [id number], [place] [address] January, [facility] [place] [id number], [place] [address] Dec, [facility] [place] [id number] [place] [address] Dec, [facility] [place] [id number], [place] [address] Oct, [facility] [place] [id number] [place] [address] Oct, [facility] [place] [id number] [place] [address] Oct, [facility] [place] [id number], [place] [address] Oct, [facility] [place] [id number], [place] [address] Oct, [facility] [place] [id number], [place] [address] Oct, [facility] [place] [id number], [place] [address] Oct, [facility] [place] [id number], [place] [address] Oct, [facility] [place] [id number] [place] [address] Oct, [facility] [place] [id number], [place] [address] Oct, [facility] [place] [id number] [address] Oct, [facility] [place] [id number] [place] [address] Oct, [facility] [place] [facility] [address] [id number] [place] [address] Sep, [facility] [place] [facility] [address] [id number] [place] [address] Sep, [facility] [place] [facility] [address] [id number] [place] [address] Aug, [facility] [place] [facility] [address] [id number] [place] [address] Aug, [facility] [place] [facility] [address] [id number] [place] [address] Aug, [facility] [place] [facility] [address] [id number] [place] [address] Aug, [facility] [place] [facility] [address] [id number] [place] [address] Aug, [facility] [place] [facility] [address] [id number] [place] [address] Aug, [facility] [place] [facility] [address] [id number] [place] [address] Aug, [facility] [place] [facility] [address] [facility] [id number] [place] [address] Aug, [facility] [place] [facility] [address] [id number] [place] [address] Aug, [facility] [place] [facility] [address] [id number] [place] [address] Aug, [facility] [place] [facility] [address] [id number] [place] [address] Jul, [facility] [place] [facility] [address] [id number] [place] [address] Jul, [facility] [place] [facility] [address] [id number] [place] [address] Jun, [facility] [place] [facility] [address] [id number] [place] [address] 29 Jun, 2014 [facility] [place] [facility] [address] [id number] [place] [address] Jun, [facility] [place] [facility] [address] [id number] [place] [address] 15 Jun, 2014 [facility] [place] [facility] [address] [id number] [place] [address] 14 Jun, 2014 [facility] [place] [facility] [address] [id number] [place] [address] Jun, [facility] [place] [facility] [address] [id number] [place] [address] Jun, [facility] [place] [facility] [address] [id number] [place] [address] 30 May, 2013 [facility] [place] [facility] [address] [id number] [place] [address] 30 May, 2013 [facility] [place] [facility] [address] [id number] [place] [address] 30 May, 2013 [facility] [place] [facility] [address] [id number] [place] [address] 30 May, 2013 [facility] [place] [facility] [address] [id number] [place] [address] 26 May, 2013 [facility] [place] [facility] [address] [id number] [place] [address] 26 Sep, 2013 [facility] [place] [facility] [address] [id number] [place] [address] 26 May, 2013 [facility] [place] [facility] [address] [id number] [place] [address] 26 May, 2013 [facility] [place] [facility] [address] [id number] [place] [address] 24 May, 2013 [facility] [place] [facility] [address] [id number] [place] [address] May, [facility] [place] [facility] [address] [id number] [place] [address] May, 2013 [facility] [place] [facility] [address] [id number] [place] [address] May, [facility] [place] [facility] [address] [id number] [place] [address] May, [facility] [place] [facility] [address] [id number] [place] [address] Mar, [facility] [place] [facility] [address] [id number] [place] [address] Mar, [facility] [place] [facility] [address] [id number] [place] [address] Mar, [facility] [place] [facility] [address] [id number] [place] [address] Mar, [facility] [place] [facility] [address] [id number] [place] [address] Mar, [facility] [place] [facility] [address] [id number] [place] [address] Mar, [facility] [place] [facility] [address] [id number] [place] [address] Feb, [facility] [place] [facility] [address] [id number] [place] [address] Feb, [facility] [place] [facility] [address] [id number] [place] [address] Feb, [facility] [place] [facility] [address] [id number] [place] [address] Feb, [facility] [place] [facility] [address] [id number] [place] [address] Feb, [facility] [place] [facility] [address] [id number] [place] [address] Feb, [facility] [place] [facility] [address] [id number] [place] [address] Feb, [facility] [address] [id number] [place] [address] Feb, [facility] [place] [facility] [address] [id number] [place] [address] Feb, [facility] [address] [id number] [place] [address] January, [facility] [place] [facility] [address] [id number] [place] [address] January, [facility] [place] [facility] [address] [id number] [place] [address] Dec, [facility] [place] [facility] [address] [id number] [place] [address] Dec, [facility] [place] [facility] [address] [id number] [place] [address] Dec, [facility] [address] [id number] [place] [address] Dec, [facility] [place] [facility] [address] [id number] [place] [address] Nov, [facility] [address] [id number] [place] [address] Nov, [facility] [place] [facility] [address] [id number] [place] [address] Nov, [facility] [place] [facility] [address] [id number] [place] [address] Nov, [facility] [place] [facility] [address] [id number] [place] [address] Nov, [facility] [place] [facility] [address] [id number] [place] [address] Nov, [facility] [place] [facility] [address] [id number] [place] [address] Nov, [facility] [address] [id number] [place] [address] Nov, [facility] [place] [facility] [address] [id number] [place] [address] Nov, [facility] [place] [facility] [address] [id number] [place] [address] Nov, [facility] [place] [facility] [address] [id number] [place] [address] Oct, [facility] [place] [facility] [address] [id number] [place] [address] Oct, [facility] [place] [facility] [address] [id number] [place] [address] Sep, [facility] [place] [facility] [address] [id number] [place] [address] Sep, [facility] [place] [facility] [address] [id number] [place] [address] Sep, [facility] [place] [facility] [address] [id number] [place] [address] Aug, [facility] [place] [facility] [address] [id number] [place] [address] Aug, [facility] [place] [facility] [address] [id number] [place] [address] Aug, [facility] [place] [facility] [address] [id number] [place] [address] Aug, [facility] [place] [facility] [address] [id number] [place] [address] Jul, [facility] [place] [facility] [address] [id number] [place] [address] Jul, [facility] [place] [facility] [address] [id number] [place] [address] Jul, [facility] [place] [facility] [address] [id number] [place] [address] Jul, [facility] [place] [facility] [address] [id number] [place] [address] Jun, [facility] [place] [facility] [address] [id number] [place] [address] Jun, [facility] [place] [facility] [address] [id number] [place] [address] Jun, [facility] [place] [facility] [address] [id number] [place] [address] Jun, [facility] [place] [facility] [address] [id number] [place] [address] Jun, [facility] [place] [facility] [address] [id number] [place] [address] Jun, [facility] [place] [facility] [address] [id number] [place] [address] Jun, [facility] [place] [facility] [address] [id number] [place] [address] Jun, [facility] [place] [facility] [address] [id number] [place] [address] May, [facility] [place] [facility] [address] [id number] [place] [address] Apr, [facility] [place] [facility] [address] [id number] [place] [address] Mar, [facility] [place] [facility] [address] [id number] [place] [address] Mar, [facility] [place] [facility] [address] [id number] [place] [address] Feb, [facility] [place] [facility] [address] [id number] [place] [address] Feb, [facility] [place] [facility] [address] [id number] [place] [address] Feb, [facility] [place] [facility] [address] [id number] [place] [address] 24 Dec, 2012 [facility] [address] [id number] [place] [address] Dec, [facility] [place] [facility] [address] [id number] [place] [address] Dec, [facility] [place] [facility] [address] [id number] [place] [address] Nov, [facility] [place] [facility] [address] [id number] [place] [address] Oct, [facility] [place] [facility] [address] [id number] [place] [address] Oct, [facility] [address] [id number] [place] [address] Oct, [facility] [address] [id number] [place] [address] 08 Oct, 2012 [facility] [place] [facility] [address] [id number] [place] [address] Sep, [facility] [address] [id number] [place] [address] Sep, [facility] [place] [facility] [address] [id number] [place] [address] Aug, [facility] [place] [facility] [address] [id number] [place] [address] Aug, [facility] [place] [facility] [address] [id number] [place] [address] Aug, [facility] [place] [facility] [address] [id number] [place] [address] Aug, [facility] [place] [facility] [address] [id number] [place] [address] Aug, [facility] [place] [facility] [address] [id number], [place] [address] 21 Aug, 2012 [facility] [place] [facility] [address] [id number] [place] [address] 18 Aug, 2012 [facility] [place] [facility] [address] [id number] [place] [address] 18 Aug, 2012 [facility] [place] [facility] [address] [id number] [place] [address] 14 Aug, 2012 [facility] [place] [facility] [address] [id number] [place] [address] 14 Aug, 2012 [facility] [place] [facility] [address] [id number] [place] [address] 10 Aug, 2012 [facility] [place] [facility] [address] [id number] [place] [address] 10 Aug, 2012 [facility] [place] [facility] [address] [id number] [place] [address] 30 Jul, 2012 [facility] [place] [facility] [address] [id number] [place] [address] 30 Jul, 2012 [facility] [place] [facility] [address] [id number] [place] [address] 26 Jul, 2012 [facility] [place] [facility] [address] [id number] [place] [address] 26 Jul, 2012 [facility] [place] [facility] [address] [id number] [place] [address] Jul, [facility] [place] [facility] [address] [id number], [place] [address] 20 Jul, 2012 [facility] [place] [facility] [address] [id number] [place] [address] 19 Jul, 2012 [facility] [place] [facility] [address] [id number] [place] [address] 19 Jul, 2012 [facility] [place] [facility] [address] [facility] [id number] [place] [address] 16 Jul, 2012 [facility] [place] [facility] [address] [id number] [place] [address] Jul, [facility] [place] [facility] [address] [id number] [place] [address] Jun, [facility] [place] [facility] [address] [id number] [place] [address] Jun, [facility] [place] [facility] [address] [id number] [place] [address] Jun, [facility] [place] [facility] [address] [id number] [place] [address] Jun, [facility] [place] [facility] [address] [id number] [place] [address] Apr, [facility] [place] [facility] [address] [id number] [place] [address] Mar, [facility] [place] [facility] [address] [id number] [place] [address] Mar, [facility] [place] [facility] [address] [id number] [place] [address] Mar, [facility] [place] [facility] [address] [id number] [place] [address] Mar, [facility] [place] [facility] [address] [id number] [place] [address] Mar, [facility] [place] [facility] [address] [id number] [place] [address] Feb, [facility] [place] [facility] [address] [id number] [place] [address] Feb, [facility] [place] [facility] [address] [id number] [place] [address] January, [facility] [place] [facility] [address] [id number] [place] [address] January, [facility] [place] [facility] [address] [id number] [place] [address] Nov, [facility] [place] [facility] [address] [id number] [place] [address] Nov, [facility] [place] [facility] [address] [id number] [place] [address] 16 Nov, 2011 [facility] [place] [facility] [address] [id number] [place] [address] Nov, [facility] [place] [facility] [address] [id number] [place] [address] Nov, [facility] [place] [facility] [address] [id number] [place] [address] Oct, [facility] [place] [facility] [address] [id number] [place] [address] Jul, [facility] [place] [facility] [address] [id number] [place] [address] Jul, [facility] [place] [facility] [address] [id number] [place] [address] Jul, [facility] [place] [facility] [address] [id number] [place] [address] Jun, [facility] [place] [facility] [address] [id number] [place] [address] Jun, [facility] [place] [facility] [address] [id number], [place] [address] Dec, [facility] [place] [facility] [address] [id number], [place] [address] Aug, [facility] [place] [facility] [address] [id number] [place] [address] Aug, [facility] [place] [facility] [address] [id number] [place] [address] Jul, [facility] [place] [facility] [address] [id number] [place] [address] Jul, [facility] [place] [facility] [address] [facility] [id number], [place] [address] Jul, [facility] [address] [facility] [id number], [place] [address] Jun, [facility] [place] [address] [id number], [place] [address] Jun, [facility] [place] [address] [id number], [place] [address] Jun, [facility] [place] [address] [id number], [place] [address] May, [facility] [place] [address] [id number], [place] [address] Feb, [facility] [place] [address] [id number], [place] [address] January, IMMUNIZATIONS No Known Immunizations SOCIAL HISTORY Never Assessed REASON FOR VISIT Requests return call PLAN OF CARE VITAL SIGNS MEDICATIONS Medication Instructions Dosage Frequency Start Date End Date Duration Status Levemir FlexTouch 100 UNIT/ML Subcutaneous at bedtime 30 units 30 days Active NovoLog Flexpen 100 UNIT/ML Subcutaneous 3 times a day ac meals 5 units 30 days Active Omeprazole 20 mg Orally Once a day 1 capsule 24h 30 days Active Metoprolol Tartrate 50 mg Orally Twice a day 1 tablet with food 12h Jun, 30 day(s) Active Atorvastatin Calcium 20 mg Orally Once a day 1 tablet 24h 30 Active Ondansetron 4 MG Orally every 8 hrs as needed 1 tablet on the tongue and allow to dissolve 30 days Active Lisinopril 20 mg Orally Once a day 1 tablet 24h 30 days Active RESULTS No Results PROCEDURES No [...]
--- OUTSIDE RECORDS SUMMARY | 2019-04-25 17:22 | XMS REPORT ---
Author Author MYRON LOCO [facility] Address [address] [place] [address] Care Team Providers Care Manager Audit Name Role Phone MYRON LOCO Unavailable PROBLEMS Type Condition ICD9-CM Code MOY20-RM Code Onset Dates Condition Status SNOMED Code Problem Diabetes E11.9 Active 864639323 Problem Diabetic mononeuropathy associated with type 2 diabetes mellitus E11.41 Active 207144034 Problem Depression, unspecified depression type F32.9 Active 08247147 Problem Cirrhosis of liver without ascites, unspecified hepatic cirrhosis type K74.60 Active 36411293 Problem Type 2 diabetes mellitus without complications E11.9 Active 218124731 Problem Lumbago with sciatica, left side M54.42 Active 546874139 Problem 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 Active 708043634 Problem Other chronic pain G89.29 Active 61301934 Problem Chronic pain disorder G89.4 Active 634623420 Problem Renal insufficiency N28.9 Active 138686713 Problem Alcoholic cirrhosis of liver without ascites K70.30 Active 789057374 Problem Mood disorder F39 Active 28275568 Problem History of alcohol dependence F10.21 Active 277199117 Problem Hypertension, benign I10 Active 00887746 Problem Primary insomnia F51.01 Active 748696735 Problem Hyperlipidemia, mixed E78.2 Active 298188984 Problem Spinal arthritis M46.90 Active 936410538 Problem Neuropathy, diabetic E11.40 Active 920015114 ALLERGIES No Information SOCIAL HISTORY Never Assessed PLAN OF CARE VITAL SIGNS MEDICATIONS Medication Instructions Dosage Frequency Start Date End Date Duration Status Tizanidine HCl 4 MG Orally 2 times a day 1 tablet as needed 12h 30 days Active RESULTS No Results PROCEDURES [...]
--- OUTSIDE RECORDS SUMMARY | 2019-04-25 17:23 | XMS REPORT ---
Author Author RONALD KELLEY Organization [facility] Address [address] 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 Name Role Phone RONALD KELLEY Unavailable PROBLEMS Type Condition ICD9-CM Code USX26-RZ Code Onset Dates Condition Status SNOMED Code Problem Hypertension, benign I10 Active 51755525 Problem Neuropathy, diabetic E11.40 Active 021021985 Problem Hyperlipidemia, mixed E78.2 Active 348840524 Problem Mood disorder F39 Active 47329974 Problem Primary insomnia F51.01 Active 163953449 Problem Diabetes E11.9 Active 127424833 Problem Precordial pain R07.2 Active 26201151 Problem Type 2 diabetes mellitus without complications E11.9 Active 016817271 Problem Depression, unspecified depression type F32.9 Active 20937426 Problem Chronic obstructive pulmonary disease, unspecified COPD type J44.9 Active 53468368 Problem Cirrhosis of liver without ascites, unspecified hepatic cirrhosis type K74.60 Active 80144321 ALLERGIES Substance Reaction Event Type Date Status Tylenol liver problems Drug Allergy Jul, Active Aspirin liver problems Drug Allergy Jul, Active ENCOUNTERS Encounter Location Date Diagnosis [facility] [id number] [address] January, [facility] [id number] [place] [address] January, Diabetes E11.9 [facility] [id number] [address] January, Diabetes E11.9 [facility] [id number] [place] [address] Dec, Diabetes E11.9 ; Mood disorder F39 ; Hyperlipidemia, mixed E78.2 ; Precordial pain R07.2 ; Type 2 diabetes mellitus with hyperglycemia E11.65 and 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 Z79.4 [facility] [address] [address] Dec, [facility] [id number] [address] Nov, [facility] [address] [address] Nov, Cirrhosis of liver without ascites, unspecified hepatic cirrhosis type K74.60 ; Type 2 diabetes mellitus without complications E11.9 ; Precordial pain R07.2 and BMI 40.0-44.9, adult Z68.41 [address] [place] [id number] [place] [address] Nov, Cirrhosis of liver without ascites, unspecified hepatic cirrhosis type K74.60 [place] [address] [address] Oct, [place] [id number] [place] [address] Oct, Cirrhosis of liver without ascites, unspecified hepatic cirrhosis type K74.60 ; Chronic obstructive pulmonary disease, unspecified COPD type J44.9 and Influenza-like illness R69 [place] [address] [address] Oct, [place] [address] [address] Oct, [facility] [address] [address] Oct, Cirrhosis of liver without ascites, unspecified hepatic cirrhosis type K74.60 [place] [address] [address] Sep, [place] [address] [address] Sep, Chronic obstructive pulmonary disease, unspecified COPD type J44.9 [place] [address] [address] Sep, Cirrhosis of liver without ascites, unspecified hepatic cirrhosis type K74.60 and Chronic obstructive pulmonary disease, unspecified COPD type J44.9 [facility] [address] [address] Aug, [facility] [id number] [place] [address] Aug, Cirrhosis of liver without ascites, unspecified hepatic cirrhosis type K74.60 [facility] [id number] [place] [address] Aug, [facility] [id number] [place] [address] Aug, [facility] [id number] [place] [address] Jul, [facility] [id number] [place] [address] Jul, Diabetes E11.9 and Viral gastroenteritis A08.4 [facility] [id number] [place] [address] Jul, Cirrhosis of liver without ascites, unspecified hepatic cirrhosis type K74.60 and Chronic obstructive pulmonary disease, unspecified COPD type J44.9 [facility] [address] [address] Jul, [facility] [id number] [place] [address] Jul, Cirrhosis of liver without ascites, unspecified hepatic cirrhosis type K74.60 [facility] [id number] [address] Jul, [facility] [address] [address] Jul, [facility] [id number] [place] [address] Jun, Cirrhosis of liver without ascites, unspecified hepatic cirrhosis type K74.60 and Viral gastroenteritis A08.4 [facility] [address] [address] Jun, Nausea and vomiting, intractability of vomiting not specified, unspecified vomiting type R11.2 ; Acute nonintractable headache, unspecified headache type R51 and History of encephalopathy Z86.69 [facility] [address] [address] Jun, [facility] [address] [address] Jun, Neuropathy, diabetic E11.40 and Hypertension, benign I10 [facility] [address] [address] Jun, [facility] [address] [address] Jun, [facility] [address] [id number] Jun, [facility] [address] [address] Jun, [facility] [address] [address] Jun, [facility] [address] [address] Jun, Viral gastroenteritis A08.4 and Diabetes E11.9 [facility] [address] [address] May, Lumbago with sciatica, left side M54.42 [facility] [address] [address] 14 May, 2017 Lumbago with sciatica, left side M54.42 [facility] [address] [address] May, [facility] [address] [address] May, [facility] [id number] [place] [address] Apr, Lumbago with sciatica, left side M54.42 ; Neuropathy, diabetic E11.40 and Mood disorder F39 [facility] [id number] [place] [address] Apr, [facility] [id number] [place] [address] Apr, [facility] [id number] [place] [address] Mar, Other chronic pain G89.29 and Type 2 diabetes mellitus without complications E11.9 [facility] [id number] [place] [address] Mar, Other chronic pain G89.29 [facility] [id number] [place] [address] Feb, Other chronic pain G89.29 [facility] [id number] [place] [address] January, Shoulder pain, left M25.512 and Other chronic pain G89.29 [facility] [address] [address] January, [facility] [id number] [place] [address] January, Drug-induced erectile dysfunction N52.2 [facility] [id number] [place] [address] January, Diabetes E11.9 [facility] [id number] [place] [address] January, Diabetes E11.9 ; Chronic pain disorder G89.4 ; Lumbago with sciatica, left side M54.42 and Other acute postprocedural pain G89.18 [facility] [address] [address] Dec, Drug-induced erectile dysfunction N52.2 [facility] [address] [address] Nov, Drug-induced erectile dysfunction N52.2 [facility] [id number] [place] [address] Nov, Drug-induced erectile dysfunction N52.2 [facility] [address] [address] 03 Oct, 2016 Diabetes E11.9 [facility] [id number] [place] [address] Oct, Diabetes E11.9 ; Neuropathy, diabetic E11.40 and Drug-induced erectile dysfunction N52.2 [facility] [address] [address] Sep, [facility] [id number] [place] [address] Aug, Diabetes type 2, controlled E11.9 [facility] [id number] [place] [address] Aug, Diabetic mononeuropathy associated with type 2 diabetes mellitus E11.41 [facility] [address] [address] Jul, [facility] [address] [address] Jul, Primary insomnia F51.01 [facility] [id number] [place] [address] Jun, [facility] [id number] [place] [address] 06 Jun, 2016 Diabetes E11.9 ; Primary insomnia F51.01 and Depression, unspecified depression type F32.9 [address] [address] Jun, [facility] [address] [address] Jun, [facility] [address] [address] May, [facility] [id number] [place] [address] May, Mood disorder F39 [facility] [address] [address] Apr, [facility] [address] [address] Mar, Acute cystitis without hematuria N30.00 [facility] [id number] [place] [address] Feb, Diabetes E11.9 [facility] [address] [address] January, [facility] [address] [address] January, [facility] [address] [address] January, Acute cystitis without hematuria N30.00 ; 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 ; Fatigue, unspecified type R53.83 and Weight loss, abnormal R63.4 [facility] [address] [address] January, [facility] [address] [address] Dec, [facility] [address] [address] Nov, [facility] [address] [address] Nov, Neuropathy, diabetic E11.40 [place] [id number] [place] [address] Oct, Neuropathy, diabetic E11.40 [place] [id number] [place] [address] Oct, [address] [id number] [place] [address] Oct, [place] [id number] [place] [address] Oct, [place] [id number] [place] [address] Aug, [place] [id number] [place] [address] Aug, Type 2 diabetes mellitus with foot ulcer E11.621 ; Nausea R11.0 ; Other complications following infusion, transfusion and therapeutic injection, initial encounter T80.89XA ; Hyperlipidemia, mixed E78.2 and Nail ingrowing L60.0 [place] [id number] [place] [address] Jul, [place] [id number] [place] [address] Jul, Diabetes E11.9 [place] [id number] [place] [address] Jul, Type 2 diabetes mellitus with foot ulcer E11.621 and Non-pressure chronic ulcer of other part of left foot with unspecified severity L97.529 [address] [id number] [place] [address] Jun, Diabetes E11.9 ; Shoulder pain, left M25.512 ; Abdominal pain, lower R10.30 ; Hepatitis C, chronic B18.2 and Diabetes mellitus without mention of complication, type II or unspecified type, not stated as uncontrolled 250.00 [place] [id number] [place] [address] Jun, Cellulitis, abdominal wall L03.311 and Nocturnal hypoxemia G47.34 [facility] [id number] [place] [address] Jun, Diabetes mellitus without mention of complication, type II or unspecified type, not stated as uncontrolled 250.00 [facility] [id number] [place] [address] May, Diabetes mellitus without mention of complication, type II or unspecified type, not stated as uncontrolled 250.00 [facility] [id number] [place] [address] May, Abdominal pain 789.00 [id number] [place] [address] May, [id number] [place] [address] May, [facility] [id number] [place] [address] May, Diabetes mellitus without mention of complication, type II or unspecified type, not stated as uncontrolled 250.00 [place] [id number] [place] [address] Apr, [facility] [id number] [place] [address] Mar, [facility] [id number] [place] [address] Mar, Diabetes mellitus without mention of complication, type II or unspecified type, not stated as uncontrolled 250.00 [facility] [id number] [place] [address] Feb, Diabetes mellitus without mention of complication, type II or unspecified type, not stated as uncontrolled 250.00 and Chronic pain 338.29 [facility] [id number] [place] [address] Feb, [facility] [address] [address] January, Diabetes mellitus without mention of complication, type II or unspecified type, not stated as uncontrolled 250.00 and Chronic pain 338.29 [facility] [address] [address] January, [facility] [id number] [place] [address] Dec, [facility] [id number] [place] [address] Dec, [facility] [id number] [place] [address] Oct, [facility] [id number] [place] [address] Oct, [facility] [id number] [place] [address] Oct, [facility] [address] [address] Oct, [facility] [address] [address] Oct, [facility] [address] [address] Oct, [facility] [address] [address] Oct, [facility] [address] [address] Oct, [facility] [address] [address] Oct, [facility] [address] [address] Oct, [facility] [address] [address] Oct, [facility] [place] [facility] [address] [id number] [place] [address] Oct, [facility] [place] [facility] [address] [id number] [place] [address] Sep, [facility] [place] [facility] [address] [id number] [place] [address] Sep, [facility] [place] [facility] [address] [id number] [place] [address] Aug, [facility] [place] [facility] [address] [id number] [place] [address] Aug, [facility] [place] [facility] [address] [id number] [place] [address] Aug, [facility] [place] [facility] [address] [id number] [place] [address] Aug, [facility] [place] [facility] [address] [id number] [place] [address] Aug, [facility] [place] [facility] [address] [id number] [place] [address] Aug, [facility] [place] [facility] [address] [id number] [place] [address] Aug, [facility] [place] [facility] [address] [id number] [place] [address] Aug, [facility] [place] [facility] [address] [id number] [place] [address] Aug, [facility] [place] [facility] [address] [id number] [place] [address] Aug, [facility] [place] [facility] [address] [id number] [place] [address] Jul, [facility] [place] [facility] [address] [id number] [place] [address] Jul, [facility] [place] [facility] [address] [id number] [place] [address] 29 Jun, 2013 [facility] [place] [facility] [address] [id number] [place] [address] 29 Jun, 2014 [facility] [place] [facility] [address] [id number] [place] [address] 15 Jun, 2014 [facility] [place] [facility] [address] [id number] [place] [address] 15 Jun, 2014 [facility] [place] [facility] [address] [id number] [place] [address] 14 Jun, 2014 [facility] [place] [facility] [address] [id number] [place] [address] 03 Jun, 2014 [facility] [place] [facility] [address] [id number] [place] [address] 03 Jun, 2014 [facility] [place] [facility] [address] [id number] [place] [address] 30 Sep, 2013 [facility] [place] [facility] [address] [id number] [place] [address] 30 Sep, 2013 [facility] [place] [facility] [address] [id number] [place] [address] 30 Sep, 2013 [facility] [place] [facility] [address] [id number] [place] [address] 30 Sep, 2013 [facility] [place] [facility] [address] [id number] [place] [address] 26 Sep, 2013 [facility] [place] [facility] [address] [id number] [place] [address] 26 Sep, 2013 [facility] [place] [facility] [address] [id number] [place] [address] 26 Sep, 2013 [facility] [place] [facility] [address] [id number] [place] [address] 26 Sep, 2013 [facility] [place] [facility] [address] [id number] [place] [address] 24 Sep, 2013 [facility] [place] [facility] [address] [id number] [place] [address] May, 2013 [facility] [place] [facility] [address] [id number] [place] [address] May, 2013 [facility] [place] [facility] [address] [id number] [place] [address] May, 2013 [facility] [place] [facility] [address] [id number] [place] [address] May, 2013 [facility] [place] [facility] [address] [id number] [place] [address] Mar, [facility] [place] [facility] [address] [id number] [place] [address] Mar, [facility] [place] [facility] [address] [id number] [place] [address] Mar, [facility] [place] [facility] [address] [id number] [place] [address] Mar, [facility] [place] [facility] [address] [id number] [place] [address] Mar, [facility] [place] [facility] [address] [id number] [place] [address] Mar, [facility] [place] [facility] [address] [id number] [place] [address] Feb, [facility] [place] [facility] [address] [id number] [place] [address] Feb, [facility] [place] [facility] [address] [id number] [place] [address] Feb, [facility] [place] [facility] [address] [id number] [place] [address] Feb, [facility] [place] [facility] [address] [id number] [place] [address] Feb, [facility] [place] [facility] [address] [id number] [place] [address] Feb, [facility] [place] [facility] [address] [id number] [place] [address] Feb, [facility] [place] [facility] [address] [id number] [place] [address] Feb, [facility] [place] [facility] [address] [id number] [place] [address] Feb, [facility] [place] [facility] [address] [id number] [place] [address] January, [facility] [place] [facility] [address] [id number] [place] [address] January, [facility] [place] [facility] [address] [id number] [place] [address] Dec, [facility] [place] [facility] [address] [id number] [place] [address] Dec, [facility] [place] [facility] [address] [id number] [place] [address] Dec, [facility] [place] [facility] [address] [id number] [place] [address] Dec, [facility] [place] [facility] [address] [id number] [place] [address] Nov, [facility] [place] [facility] [address] [id number] [place] [address] Nov, [facility] [place] [facility] [address] [id number] [place] [address] Nov, [facility] [place] [facility] [address] [id number] [place] [address] Nov, [facility] [place] [facility] [address] [id number] [place] [address] Nov, [facility] [place] [facility] [address] [id number] [place] [address] Nov, [facility] [place] [facility] [address] [id number] [place] [address] Nov, [facility] [place] [facility] [address] [id number] [place] [address] Nov, [facility] [place] [facility] [address] [id number] [place] [address] Nov, [facility] [place] [facility] [address] [id number] [place] [address] Nov, [facility] [place] [facility] [address] [id number] [place] [address] Oct, [facility] [place] [facility] [address] [id number] [place] [address] Oct, [facility] [place] [facility] [address] [id number] [place] [address] Sep, [facility] [place] [facility] [address] [id number] [place] [address] Sep, [facility] [place] [facility] [address] [id number] [place] [address] Sep, [facility] [place] [facility] [address] [id number] [place] [address] Aug, [facility] [place] [facility] [address] [id number] [place] [address] Aug, [facility] [place] [facility] [address] [id number] [place] [address] Aug, [facility] [place] [facility] [address] [id number] [place] [address] Aug, [facility] [place] [facility] [address] [id number] [place] [address] Jul, [facility] [place] [facility] [address] [id number] [place] [address] Jul, [facility] [place] [facility] [address] [id number] [place] [address] Jul, [facility] [place] [facility] [address] [id number] [place] [address] Jul, [facility] [facility] [address] [id number] [place] [address] Jun, [facility] [place] [facility] [address] [id number] [place] [address] Jun, [facility] [place] [facility] [address] [id number] [place] [address] Jun, [facility] [place] [facility] [address] [id number] [place] [address] Jun, [facility] [place] [facility] [address] [id number] [place] [address] Jun, [facility] [place] [facility] [address] [id number] [place] [address] Jun, [facility] [place] [facility] [address] [id number] [place] [address] Jun, [facility] [place] [facility] [address] [id number] [place] [address] Jun, [facility] [place] [facility] [address] [id number] [place] [address] May, [facility] [place] [address] [id number] [address] Apr, [facility] [place] [facility] [address] [id number] [place] [address] Mar, [facility] [place] [facility] [address] [id number] [place] [address] Mar, [facility] [place] [facility] [address] [id number] [place] [address] Feb, [facility] [place] [address] [id number] [place] [address] Feb, [facility] [place] [facility] [address] [id number] [place] [address] 10 Feb, 2013 [facility] [address] [id number] [place] [address] 24 Dec, 2012 [facility] [place] [facility] [address] [id number] [place] [address] Dec, [facility] [address] [id number] [place] [address] Dec, [facility] [facility] [address] [id number] [place] [address] Nov, [facility] [address] [id number] [place] [address] Oct, [facility] [address] [id number] [place] [address] Oct, [facility] [address] [id number] [place] [address] Oct, [facility] [address] [id number] [place] [address] 08 Oct, 2012 [facility] [address] [id number] [place] [address] Sep, [facility] [address] [facility] [id number] [place] [address] Sep, [facility] [address] [id number] [place] [address] Aug, [facility] [address] [id number] [place] [address] Aug, [facility] [address] [id number] [place] [address] Aug, [facility] [place] [facility] [address] [id number] [place] [address] Aug, [facility] [place] [facility] [address] [id number] [place] [address] Aug, [facility] [place] [address] [id number] [place] [address] 21 Aug, 2012 [facility] [facility] [address] [id number] [place] [address] 18 Aug, 2012 [facility] [facility] [address] [id number] [place] [address] 18 Aug, 2012 [facility] [place] [facility] [address] [id number] [place] [address] 14 Aug, 2012 [facility] [facility] [address] [id number] [place] [address] 14 Aug, 2012 [facility] [place] [facility] [address] [id number] [place] [address] Aug, [facility] [place] [facility] [address] [id number] [place] [address] Aug, [facility] [place] [facility] [address] [id number] [place] [address] 30 Jul, 2012 [facility] [address] [id number] [place] [address] 30 Jul, 2012 [facility] [address] [id number] [place] [address] Jul, [facility] [address] [id number] [place] [address] Jul, [facility] [address] [id number] [place] [address] Jul, [facility] [address] [id number] [place] [address] Jul, [facility] [address] [id number] [place] [address] Jul, [facility] [address] [id number] [place] [address] Jul, [facility] [address] [id number] [place] [address] 16 Jul, 2012 [facility] [address] [id number] [place] [address] Jul, [facility] [address] [id number] [place] [address] Jun, [facility] [address] [id number] [place] [address] Jun, [facility] [address] [id number] [place] [address] Jun, [facility] [address] [id number] [place] [address] Jun, [facility] [facility] [address] [id number] [place] [address] Apr, [facility] [address] [id number] [place] [address] Mar, [facility] [address] [id number] [place] [address] Mar, [facility] [facility] [address] [id number] [place] [address] Mar, [facility] [address] [id number] [place] [address] Mar, [facility] [address] [id number] [place] [address] Mar, [facility] [address] [id number] [place] [address] Feb, [facility] [address] [id number] [place] [address] Feb, [facility] [address] [id number] [place] [address] January, [facility] [address] [id number] [place] [address] January, [facility] [address] [id number] [place] [address] 27 Nov, 2011 [facility] [address] [id number] [place] [address] 21 Nov, 2011 [facility] [address] [id number] [place] [address] 16 Nov, 2011 [facility] [address] [id number] [place] [address] Nov, [facility] [address] [id number] [place] [address] Nov, [facility] [address] [id number] [place] [address] Oct, [facility] [address] [id number] [place] [address] Jul, [facility] [address] [id number] [place] [address] Jul, [facility] [address] [id number] [place] [address] Jul, [facility] [address] [id number] [place] [address] Jun, [facility] [address] [id number] [place] [address] Jun, [facility] [address] [id number] [place] [address] Dec, [facility] [address] [id number] [place] [address] Aug, [facility] [address] [id number] [place] [address] Aug, [facility] [facility] [address] [id number] [place] [address] Jul, [facility] [address] [id number] [place] [address] Jul, [facility] [address] [id number] [place] [address] Jul, [facility] [address] [id number] [place] [address] Jun, [facility] [id number] [address] Jun, [facility] [address] [id number] [place] [address] Jun, [facility] [address] [id number] [place] [address] May, [facility] [address] [id number] [address] Feb, [facility] [address] [id number] [place] [address] January, IMMUNIZATIONS No Known Immunizations SOCIAL HISTORY Never Assessed [facility] Activity Details Follow Up we will call / after biopsy Reason: VITAL SIGNS Height 69 in 2017-08-25 Weight 242.3 lbs 2017-08-25 Temperature 99.7 degrees Fahrenheit 2017-08-25 Heart Rate 70 bpm 2017-08-25 Respiratory Rate 22 2017-08-25 Oximetry 97 % 2017-08-25 BMI 35.78 kg/m2 2017-08-25 Blood pressure systolic 122 mmHg 2017-08-25 Blood pressure diastolic 74 mmHg 2017-08-25 MEDICATIONS Medication Instructions Dosage Frequency Start Date End Date Duration Status Metoprolol Tartrate 50 mg Orally Twice a day 1 tablet with food 12h Jun, 30 day(s) Active Omeprazole 20 Orally Once a day 1 capsule 24h Active Levemir FlexTouch 100 UNIT/ML Subcutaneous at bedtime 30 units Active Lactulose 10 GM/15ML Orally twice a day 15 ml 12h 31 Jun, 2017 January, 90 days Active NovoLog Flexpen 100 UNIT/ML Subcutaneous 3 times a day ac meals 5 units Active Albuterol 90 MCG/ACT Inhalation 4 times a day 2 puffs as needed for SOB 6h Jul, Active BD Pen Needle Short U/F 31G X 8 MM SQ 5 times a day as directed May, Active Ondansetron 4 MG Orally 3 times a day 1 tablet on the tongue and allow to dissolve 8h 30 days Active Atorvastatin Calcium 20 TAKE 1 TABLET BY MOUTH DAILY 30 Active Lisinopril 20 MG 20 MG PO DAILY Active RESULTS No Results PROCEDURES Procedure Date Ordered Result Body Site MEASURE BLOOD OXYGEN LEVEL Aug 25, 2017 [facility] Aug 25, 2017 FQ VISIT ESTABLISHED PATIENT Aug 25, 2017 PROTHROMBIN TIME Aug 25, 2017 INSTRUCTIONS MEDICATIONS ADMINISTERED No Known Medications [...]
--- OUTSIDE RECORDS SUMMARY | 2019-04-25 17:24 | XMS REPORT ---
Author Author MYRON LOCO Organization [facility] [place] Address [address] [place] [address] Care Team Providers Care Acid Recovery Operator Name Role Phone MYRON LOCO Unavailable PROBLEMS Type Condition ICD9-CM Code URI55-PU Code Onset Dates Condition Status SNOMED Code Problem Primary insomnia F51.01 Active 190123248 Problem Hyperlipidemia, mixed E78.2 Active 553437299 Problem Hypertension, benign I10 Active 28843039 Problem Mood disorder F39 Active 69059599 Problem Precordial pain R07.2 Active 65557780 Problem Chronic obstructive pulmonary disease, unspecified COPD type J44.9 Active 55738158 Problem Depression, unspecified depression type F32.9 Active 35598054 Problem Neuropathy, diabetic E11.40 Active 013970993 Problem Cirrhosis of liver without ascites, unspecified hepatic cirrhosis type K74.60 Active 38349143 Problem Type 2 diabetes mellitus without complications E11.9 Active 268926040 ALLERGIES No Information ENCOUNTERS Encounter Location Date Diagnosis [place] [id number] [place] [address] Dec, [facility] [place] [id number] [place] [address] Dec, [facility] [place] [id number] [place] [address] Nov, [place] [id number] [place] [address] Nov, Cirrhosis of liver without ascites, unspecified hepatic cirrhosis type K74.60 ; Type 2 diabetes mellitus without complications E11.9 ; Precordial pain R07.2 and BMI 40.0-44.9, adult Z68.41 [facility] [place] [id number] [place] [address] 07 Nov, 2017 Cirrhosis of liver without ascites, unspecified hepatic cirrhosis type K74.60 [facility] [place] [address] [place] [address] Oct, [facility] [place] [address] [address] Oct, Cirrhosis of liver without ascites, unspecified hepatic cirrhosis type K74.60 ; Chronic obstructive pulmonary disease, unspecified COPD type J44.9 and Influenza-like illness R69 [facility] [place] [address] [address] Oct, [facility] [place] [address] [address] Oct, [facility] [place] [address] [address] Oct, Cirrhosis of liver without ascites, unspecified hepatic cirrhosis type K74.60 [facility] [place] [address] [address] Sep, [facility] [place] [address] [address] Sep, Chronic obstructive pulmonary disease, unspecified COPD type J44.9 [facility] [place] [address] [address] Sep, Cirrhosis of liver without ascites, unspecified hepatic cirrhosis type K74.60 and Chronic obstructive pulmonary disease, unspecified COPD type J44.9 [facility] [place] [address] [address] Aug, [facility] [place] [address] [address] Aug, Cirrhosis of liver without ascites, unspecified hepatic cirrhosis type K74.60 [facility] [place] [address] [address] Aug, [facility] [place] [address] [address] Aug, [facility] [place] [id number] [place] [address] Jul, [facility] [place] [id number] [place] [address] Jul, Diabetes E11.9 and Viral gastroenteritis A08.4 [facility] [place] [id number] [place] [address] Jul, Cirrhosis of liver without ascites, unspecified hepatic cirrhosis type K74.60 and Chronic obstructive pulmonary disease, unspecified COPD type J44.9 [facility] [place] [id number] [place] [address] Jul, [place] [id number] [place] [address] Jul, Cirrhosis of liver without ascites, unspecified hepatic cirrhosis type K74.60 [place] [id number] [place] [address] Jul, [facility] [place] [id number] [place] [address] Jul, [place] [id number] [place] [address] Jun, Cirrhosis of liver without ascites, unspecified hepatic cirrhosis type K74.60 and Viral gastroenteritis A08.4 [facility] [id number] [place] [address] Jun, Nausea and vomiting, intractability of vomiting not specified, unspecified vomiting type R11.2 ; Acute nonintractable headache, unspecified headache type R51 and History of encephalopathy Z86.69 [facility] [place] [id number] [place] [address] Jun, [facility] [place] [id number] [place] [address] Jun, Neuropathy, diabetic E11.40 and Hypertension, benign I10 [facility] [place] [id number] [place] [address] Jun, [facility] [place] [id number] [place] [address] Jun, [facility] [id number] [place] [id number] Jun, [facility] [place] [id number] [place] [address] Jun, [facility] [place] [id number] [place] [address] Jun, [facility] [place] [id number] [place] [address] Jun, Viral gastroenteritis A08.4 and Diabetes E11.9 [facility] [place] [id number] [place] [address] May, Lumbago with sciatica, left side M54.42 [facility] [place] [id number] [place] [address] 14 May, 2017 Lumbago with sciatica, left side M54.42 [facility] [place] [id number] [place] [address] May, [facility] [place] [id number] [place] [address] May, [facility] [place] [id number] [place] [address] Apr, Lumbago with sciatica, left side M54.42 ; Neuropathy, diabetic E11.40 and Mood disorder F39 [facility] [place] [id number] [place] [address] Apr, [facility] [place] [id number] [place] [address] Apr, [facility] [place] [id number] [place] [address] Mar, Other chronic pain G89.29 and Type 2 diabetes mellitus without complications E11.9 [facility] [place] [address] [address] Mar, Other chronic pain G89.29 [facility] [place] [address] [address] Feb, Other chronic pain G89.29 [facility] [place] [address] [address] January, Shoulder pain, left M25.512 and Other chronic pain G89.29 [facility] [place] [address] [address] January, [facility] [place] [id number] [place] [address] January, Drug-induced erectile dysfunction N52.2 [facility] [place] [id number] [address] January, Diabetes E11.9 [facility] [place] [address] [address] January, Diabetes E11.9 ; Chronic pain disorder G89.4 ; Lumbago with sciatica, left side M54.42 and Other acute postprocedural pain G89.18 [facility] [place] [address] [address] Dec, Drug-induced erectile dysfunction N52.2 [facility] [place] [address] [address] Nov, Drug-induced erectile dysfunction N52.2 [facility] [place] [address] [address] Nov, Drug-induced erectile dysfunction N52.2 [facility] [place] [address] [address] Oct, Diabetes E11.9 [facility] [place] [id number] [place] [address] Oct, Diabetes E11.9 ; Neuropathy, diabetic E11.40 and Drug-induced erectile dysfunction N52.2 [facility] [place] [id number] [place] [address] Sep, [facility] [place] [id number] [place] [address] Aug, Diabetes type 2, controlled E11.9 [facility] [place] [id number] [place] [address] Aug, Diabetic mononeuropathy associated with type 2 diabetes mellitus E11.41 [facility] [place] [id number] [place] [address] Jul, [facility] [place] [id number] [place] [address] Jul, Primary insomnia F51.01 [facility] [place] [id number] [place] [address] Jun, [facility] [place] [id number] [place] [address] Jun, Diabetes E11.9 ; Primary insomnia F51.01 and Depression, unspecified depression type F32.9 [facility] [place] [address] [place] [address] Jun, [facility] [place] [id number] [place] [address] Jun, [facility] [place] [id number] [place] [address] May, [facility] [place] [id number] [place] [address] May, Mood disorder F39 [facility] [place] [id number] [place] [address] Apr, [facility] [place] [id number] [place] [address] Mar, Acute cystitis without hematuria N30.00 [facility] [place] [address] [address] Feb, Diabetes E11.9 [facility] [place] [id number] [address] January, [facility] [place] [id number] [place] [address] January, [facility] [place] [id number] [place] [address] January, Acute cystitis without hematuria N30.00 ; 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 ; Fatigue, unspecified type R53.83 and Weight loss, abnormal R63.4 [facility] [place] [id number] [place] [address] January, [facility] [place] [id number] [place] [address] Dec, [facility] [place] [id number] [place] [address] Nov, [facility] [place] [id number] [place] [address] Nov, Neuropathy, diabetic E11.40 [facility] [place] [id number] [address] Oct, Neuropathy, diabetic E11.40 [facility] [place] [id number] [place] [address] Oct, [facility] [place] [address] [address] Oct, [facility] [place] [id number] [place] [address] Oct, [facility] [place] [address] [address] Aug, [facility] [place] [id number] [place] [address] Aug, Type 2 diabetes mellitus with foot ulcer E11.621 ; Nausea R11.0 ; Other complications following infusion, transfusion and therapeutic injection, initial encounter T80.89XA ; Hyperlipidemia, mixed E78.2 and Nail ingrowing L60.0 [place] [address] [address] Jul, [place] [address] [address] Jul, Diabetes E11.9 [place] [address] [address] Jul, Type 2 diabetes mellitus with foot ulcer E11.621 and Non-pressure chronic ulcer of other part of left foot with unspecified severity L97.529 [place] [address] [address] Jun, Diabetes E11.9 ; Shoulder pain, left M25.512 ; Abdominal pain, lower R10.30 ; Diabetes mellitus without mention of complication, type II or unspecified type, not stated as uncontrolled 250.00 and Hepatitis C, chronic B18.2 [place] [address] [address] Jun, Cellulitis, abdominal wall L03.311 and Nocturnal hypoxemia G47.34 [place] [address] [address] Jun, Diabetes mellitus without mention of complication, type II or unspecified type, not stated as uncontrolled 250.00 [place] [address] [address] May, Diabetes mellitus without mention of complication, type II or unspecified type, not stated as uncontrolled 250.00 [place] [id number] [place] [address] May, Abdominal pain 789.00 [place] [address] [address] May, [facility] [place] [id number] [address] May, [facility] [place] [address] [address] May, Diabetes mellitus without mention of complication, type II or unspecified type, not stated as uncontrolled 250.00 [facility] [place] [address] [address] Apr, [facility] [place] [address] [address] Mar, [facility] [place] [address] [address] Mar, Diabetes mellitus without mention of complication, type II or unspecified type, not stated as uncontrolled 250.00 [facility] [place] [address] [address] Feb, Diabetes mellitus without mention of complication, type II or unspecified type, not stated as uncontrolled 250.00 and Chronic pain 338.29 [facility] [place] [address] [address] Feb, [facility] [place] [address] [address] January, Diabetes mellitus without mention of complication, type II or unspecified type, not stated as uncontrolled 250.00 and Chronic pain 338.29 [facility] [place] [address] [address] January, [facility] [place] [address] [address] Dec, [facility] [place] [address] [address] Dec, [facility] [place] [address] [address] Oct, [facility] [place] [id number] [place] [address] Oct, 2014 [facility] [place] [facility] [address] [id number] [place] [address] Oct, 2014 [facility] [place] [facility] [address] [id number] [place] [address] Oct, 2014 [facility] [place] [facility] [address] [id number] [place] [address] Oct, 2014 [facility] [place] [facility] [address] [id number] [place] [address] Oct, 2014 [facility] [place] [facility] [address] [id number] [place] [address] Oct, 2014 [facility] [place] [facility] [address] [facility] [id number] [place] [address] Oct, 2014 [facility] [place] [facility] [address] [facility] [id number] [place] [address] Oct, 2014 [facility] [place] [facility] [address] [facility] [id number] [place] [address] Oct, 2014 [facility] [place] [facility] [address] [facility] [id number] [place] [address] Oct, 2014 [facility] [place] [facility] [address] [facility] [id number] [place] [address] Oct, 2014 [facility] [place] [facility] [address] [facility] [id number] [address] Sep, [facility] [place] [facility] [address] [facility] [id number] [place] [address] Sep, [facility] [place] [facility] [address] [facility] [id number] [place] [address] Aug, [facility] [place] [facility] [address] [facility] [id number] [place] [address] Aug, [facility] [place] [facility] [address] [facility] [id number] [address] Aug, [facility] [place] [facility] [address] [id number] [place] [address] Aug, [facility] [place] [facility] [address] [id number] [place] [address] Aug, [facility] [place] [facility] [address] [facility] [id number] [place] [address] Aug, [facility] [place] [facility] [address] [id number] [place] [address] Aug, [facility] [place] [facility] [address] [facility] [id number] [place] [address] Aug, [facility] [place] [facility] [address] [facility] [id number] [place] [address] Aug, [facility] [place] [facility] [address] [facility] [id number] [place] [address] Aug, [facility] [place] [facility] [address] [facility] [id number] [place] [address] Jul, [facility] [place] [facility] [address] [facility] [id number] [place] [address] Jul, [facility] [place] [facility] [address] [facility] [id number] [place] [address] Jun, [facility] [place] [facility] [address] [facility] [id number] [address] Jun, [facility] [place] [facility] [address] [facility] [id number] [place] [address] Jun, [facility] [place] [facility] [address] [id number] [place] [address] Jun, [facility] [place] [facility] [address] [facility] [id number] [place] [address] Jun, [facility] [place] [facility] [address] [facility] [id number] [place] [address] Jun, [facility] [place] [facility] [address] [id number] [place] [address] 03 Jun, 2013 [facility] [place] [facility] [address] [id number] [place] [address] 30 Sep, 2013 [facility] [place] [facility] [address] [id number] [place] [address] 30 May, 2013 [facility] [place] [facility] [address] [id number] [place] [address] 30 May, 2013 [facility] [place] [facility] [address] [id number] [place] [address] 30 May, 2013 [facility] [place] [facility] [address] [id number] [place] [address] May, 2013 [facility] [place] [facility] [address] [id number] [place] [address] May, 2013 [facility] [place] [facility] [address] [id number] [place] [address] May, 2013 [facility] [place] [facility] [address] [id number] [place] [address] May, 2013 [facility] [place] [facility] [address] [id number] [place] [address] 24 May, 2013 [facility] [place] [facility] [address] [id number] [place] [address] May, 2013 [facility] [place] [facility] [address] [id number] [place] [address] 02 May, 2013 [facility] [place] [facility] [address] [id number] [place] [address] May, 2013 [facility] [place] [facility] [address] [id number] [place] [address] May, 2013 [facility] [place] [facility] [address] [id number] [place] [address] Mar, 2013 [facility] [place] [facility] [address] [id number] [place] [address] Mar, [facility] [place] [facility] [address] [id number] [place] [address] Mar, [facility] [place] [facility] [address] [id number] [place] [address] Mar, [facility] [place] [facility] [address] [id number] [place] [address] Mar, [facility] [place] [facility] [address] [id number] [place] [address] Mar, [facility] [place] [facility] [address] [id number] [place] [address] Feb, [facility] [place] [facility] [address] [id number] [place] [address] Feb, [facility] [place] [facility] [address] [id number] [place] [address] Feb, [facility] [place] [facility] [address] [id number] [place] [address] Feb, [facility] [place] [facility] [address] [id number] [place] [address] Feb, [facility] [place] [facility] [address] [id number] [place] [address] Feb, [facility] [place] [facility] [address] [id number] [address] Feb, [facility] [place] [facility] [address] [id number] [place] [address] Feb, [facility] [place] [facility] [address] [id number] [place] [address] Feb, [facility] [place] [facility] [address] [id number] [place] [address] January, [facility] [place] [facility] [address] [id number] [place] [address] January, [facility] [place] [facility] [address] [id number] [place] [address] 30 Dec, 2013 [facility] [place] [facility] [address] [id number] [place] [address] 30 Dec, 2013 [facility] [place] [facility] [address] [id number] [place] [address] Dec, [facility] [place] [facility] [address] [id number] [place] [address] Dec, [facility] [place] [facility] [address] [id number] [place] [address] Nov, [facility] [place] [facility] [address] [id number] [place] [address] Nov, [facility] [place] [facility] [address] [id number] [place] [address] Nov, [facility] [place] [facility] [address] [id number] [place] [address] Nov, [facility] [place] [facility] [address] [id number] [place] [address] Nov, [facility] [place] [facility] [address] [id number] [place] [address] Nov, [facility] [place] [facility] [address] [id number] [place] [address] Nov, [facility] [place] [facility] [address] [id number] [place] [address] Nov, [facility] [place] [facility] [address] [id number] [place] [address] Nov, [facility] [place] [facility] [address] [id number] [place] [address] Nov, [facility] [place] [facility] [address] [id number] [place] [address] Oct, [facility] [place] [facility] [address] [id number] [place] [address] Oct, [facility] [place] [facility] [address] [id number] [place] [address] Sep, [facility] [place] [facility] [address] [id number] [place] [address] Sep, [facility] [place] [facility] [address] [id number] [place] [address] Sep, [facility] [place] [facility] [address] [id number] [place] [address] Aug, [facility] [place] [facility] [address] [id number] [place] [address] Aug, [facility] [place] [facility] [address] [id number] [place] [address] Aug, [facility] [place] [facility] [address] [id number] [place] [address] Aug, [facility] [place] [facility] [address] [id number] [place] [address] Jul, [facility] [place] [facility] [address] [id number] [place] [address] Jul, [facility] [place] [facility] [address] [id number] [place] [address] Jul, [facility] [place] [facility] [address] [id number] [place] [address] Jul, [facility] [place] [facility] [address] [id number] [place] [address] Jun, [facility] [place] [facility] [address] [id number] [place] [address] Jun, [facility] [place] [facility] [address] [id number] [place] [address] Jun, [facility] [place] [facility] [address] [id number] [place] [address] Jun, [facility] [place] [facility] [address] [id number] [place] [address] Jun, [facility] [address] [id number] [place] [address] Jun, [facility] [place] [facility] [address] [id number] [place] [address] Jun, [facility] [place] [facility] [address] [id number] [place] [address] Jun, [facility] [place] [facility] [address] [id number] [place] [address] May, [facility] [place] [facility] [address] [id number] [place] [address] Apr, [facility] [place] [facility] [address] [id number] [place] [address] Mar, [facility] [place] [facility] [address] [facility] [id number] [place] [address] Mar, [facility] [place] [facility] [address] [id number] [place] [address] Feb, [facility] [place] [facility] [address] [id number] [place] [address] Feb, [facility] [place] [facility] [address] [facility] [id number] [place] [address] Feb, [facility] [place] [facility] [address] [id number] [place] [address] 24 Dec, 2012 [facility] [place] [facility] [address] [id number] [place] [address] Dec, [facility] [place] [facility] [address] [id number] [place] [address] Dec, [facility] [place] [facility] [address] [facility] [id number] [place] [address] Nov, [facility] [place] [facility] [address] [facility] [id number] [place] [address] Oct, [facility] [place] [facility] [address] [id number] [place] [address] 27 Oct, 2012 [facility] [address] [id number] [place] [address] 13 Oct, 2012 [facility] [place] [facility] [address] [id number] [place] [address] 08 Oct, 2012 [facility] [place] [facility] [address] [id number] [place] [address] 14 Sep, 2012 [facility] [place] [facility] [address] [id number] [place] [address] Sep, [facility] [place] [facility] [address] [id number] [place] [address] Aug, [facility] [address] [id number] [place] [address] Aug, [facility] [address] [id number] [place] [address] Aug, [facility] [address] [id number] [place] [address] Aug, [facility] [address] [id number] [place] [address] Aug, [facility] [address] [id number] [place] [address] Aug, [facility] [address] [id number] [place] [address] 18 Aug, 2012 [facility] [place] [facility] [address] [id number] [place] [address] 18 Aug, 2012 [facility] [place] [facility] [address] [id number] [place] [address] 14 Aug, 2012 [facility] [place] [facility] [address] [id number] [place] [address] 14 Aug, 2012 [facility] [place] [facility] [address] [id number] [place] [address] Aug, [facility] [place] [facility] [address] [id number] [place] [address] Aug, [facility] [place] [facility] [address] [id number] [place] [address] Jul, [facility] [place] [facility] [address] [facility] [id number] [place] [address] Jul, [facility] [place] [facility] [address] [id number] [address] Jul, [facility] [place] [facility] [address] [id number] [place] [address] Jul, [facility] [place] [facility] [address] [id number] [place] [address] Jul, [facility] [place] [facility] [address] [id number] [place] [address] Jul, [facility] [place] [facility] [address] [id number] [place] [address] Jul, [facility] [place] [facility] [address] [id number] [place] [address] Jul, [facility] [place] [facility] [address] [id number] [place] [address] Jul, [facility] [place] [facility] [address] [id number] [place] [address] 16 Jul, 2012 [facility] [place] [facility] [address] [id number] [place] [address] Jun, [facility] [place] [facility] [address] [id number] [place] [address] Jun, [facility] [place] [facility] [address] [facility] [id number] [place] [address] 16 Jun, 2012 [facility] [place] [facility] [address] [facility] [id number] [place] [address] Jun, [facility] [place] [facility] [address] [id number] [place] [address] Apr, [facility] [address] [id number] [place] [address] Mar, [facility] [place] [facility] [address] [id number] [place] [address] Mar, [facility] [address] [id number] [place] [address] Mar, [facility] [place] [facility] [address] [id number] [place] [address] Mar, [facility] [address] [id number] [place] [address] Mar, [facility] [address] [id number] [place] [address] Feb, [facility] [address] [id number] [place] [address] Feb, [facility] [address] [id number] [place] [address] January, [facility] [place] [facility] [address] [id number] [place] [address] January, [facility] [address] [id number] [place] [address] Nov, [facility] [place] [facility] [address] [id number] [place] [address] Nov, [facility] [place] [facility] [address] [id number] [place] [address] Nov, [facility] [place] [facility] [address] [id number] [place] [address] Nov, [facility] [place] [facility] [address] [id number] [place] [address] Nov, [facility] [place] [facility] [address] [id number] [place] [address] Oct, [facility] [place] [facility] [address] [id number] [place] [address] Jul, [facility] [place] [facility] [address] [id number] [place] [address] Jul, [facility] [place] [facility] [address] [id number] [place] [address] Jul, [facility] [place] [facility] [address] [id number] [place] [address] Jun, [facility] [place] [facility] [address] [id number] [place] [address] Jun, [facility] [place] [facility] [address] [id number] [place] [address] Dec, [facility] [place] [facility] [address] [id number] [place] [address] Aug, [facility] [place] [facility] [address] [id number] [place] [address] Aug, [facility] [place] [facility] [address] [facility] [id number] [place] [address] Jul, [facility] [place] [facility] [address] [facility] [id number] [place] [address] Jul, [facility] [place] [facility] [address] [facility] [id number] [place] [address] Jul, [facility] [place] [facility] [address] [id number] [place] [address] Jun, [facility] [place] [facility] [address] [id number] [place] [address] Jun, [facility] [place] [facility] [address] [id number] [place] [address] Jun, [facility] [place] [facility] [address] [facility] [id number] [place] [address] 15 May, 2010 [facility] [place] [facility] [address] [id number] [place] [address] Feb, [facility] [place] [address] [facility] [id number] [place] [address] January, IMMUNIZATIONS No Known Immunizations SOCIAL HISTORY Never Assessed REASON FOR VISIT medication PLAN OF CARE VITAL SIGNS MEDICATIONS Medication Instructions Dosage Frequency Start Date End Date Duration Status Doxepin HCl 25 MG Orally Once a day 1 capsule at bedtime 24h May, 30 day(s) Active RESULTS No Results PROCEDURES [...]
--- OUTSIDE RECORDS SUMMARY | 2019-04-25 17:25 | XMS REPORT ---
Author Author MYRON LOCO Organization [facility] Address [address] [place] [address] Care Team Providers Care Business Resiliency Manager Name Role Phone MYRON LOCO Unavailable PROBLEMS Type Condition ICD9-CM Code MAA46-MX Code Onset Dates Condition Status SNOMED Code Problem Primary insomnia F51.01 Active 084446499 Problem Hyperlipidemia, mixed E78.2 Active 108002909 Problem Hypertension, benign I10 Active 32306470 Problem Mood disorder F39 Active 64645137 Problem Precordial pain R07.2 Active 85578747 Problem Chronic obstructive pulmonary disease, unspecified COPD type J44.9 Active 06269227 Problem Depression, unspecified depression type F32.9 Active 99253660 Problem Neuropathy, diabetic E11.40 Active 008528505 Problem Cirrhosis of liver without ascites, unspecified hepatic cirrhosis type K74.60 Active 09287017 Problem Type 2 diabetes mellitus without complications E11.9 Active 224045485 ALLERGIES No Information ENCOUNTERS Encounter Location Date Diagnosis [facility] [id number] [place] [address] Dec, [facility] [id number] [place] [address] Nov, [facility] [id number] [place] [address] Nov, Cirrhosis of liver without ascites, unspecified hepatic cirrhosis type K74.60 ; Type 2 diabetes mellitus without complications E11.9 and Precordial pain R07.2 [facility] [address] [address] Nov, Cirrhosis of liver without ascites, unspecified hepatic cirrhosis type K74.60 [facility] [id number] [place] [address] Oct, [facility] [address] [address] Oct, Cirrhosis of liver without ascites, unspecified hepatic cirrhosis type K74.60 ; Chronic obstructive pulmonary disease, unspecified COPD type J44.9 and Influenza-like illness R69 [facility] [address] [address] Oct, [facility] [id number] [place] [address] Oct, [facility] [address] [address] Oct, Cirrhosis of liver without ascites, unspecified hepatic cirrhosis type K74.60 [facility] [address] [address] Sep, [facility] [address] [address] Sep, Chronic obstructive pulmonary disease, unspecified COPD type J44.9 [facility] [address] [address] Sep, Cirrhosis of liver without ascites, unspecified hepatic cirrhosis type K74.60 and Chronic obstructive pulmonary disease, unspecified COPD type J44.9 [facility] [address] [address] Aug, [facility] [address] [address] Aug, Cirrhosis of liver without ascites, unspecified hepatic cirrhosis type K74.60 [facility] [address] [address] Aug, [facility] [address] [address] Aug, [facility] [address] [address] Jul, [facility] [id number] [place] [address] Jul, Diabetes E11.9 and Viral gastroenteritis A08.4 [facility] [address] [address] Jul, Cirrhosis of liver without ascites, unspecified hepatic cirrhosis type K74.60 and Chronic obstructive pulmonary disease, unspecified COPD type J44.9 [facility] [address] [address] Jul, [facility] [address] [address] Jul, Cirrhosis of liver without ascites, unspecified hepatic cirrhosis type K74.60 [facility] [id number] [place] [address] Jul, [facility] [address] [address] Jul, [facility] [id number] [place] [address] Jun, Cirrhosis of liver without ascites, unspecified hepatic cirrhosis type K74.60 and Viral gastroenteritis A08.4 [facility] [id number] [place] [address] Jun, Nausea and vomiting, intractability of vomiting not specified, unspecified vomiting type R11.2 ; Acute nonintractable headache, unspecified headache type R51 and History of encephalopathy Z86.69 [facility] [id number] [place] [address] Jun, [facility] [address] [address] Jun, Neuropathy, diabetic E11.40 and Hypertension, benign I10 [facility] [id number] [place] [address] Jun, [facility] [address] [address] Jun, [facility] [id number] [place] [id number] Jun, [facility] [address] [place] [address] Jun, [facility] [address] [place] [address] Jun, [facility] [address] [place] [address] Jun, Viral gastroenteritis A08.4 and Diabetes E11.9 [facility] [address] [place] [address] May, Lumbago with sciatica, left side M54.42 [facility] [address] [place] [address] 14 May, 2017 Lumbago with sciatica, left side M54.42 [facility] [address] [place] [address] May, [facility] [address] [place] [address] May, [facility] [address] [place] [address] Apr, Lumbago with sciatica, left side M54.42 ; Neuropathy, diabetic E11.40 and Mood disorder F39 [facility] [address] [place] [address] Apr, [facility] [address] [place] [address] Apr, [facility] [address] [place] [address] Mar, Other chronic pain G89.29 and Type 2 diabetes mellitus without complications E11.9 [facility] [address] [place] [address] Mar, Other chronic pain G89.29 [facility] [address] [address] Feb, Other chronic pain G89.29 [facility] [address] [place] [address] January, Shoulder pain, left M25.512 and Other chronic pain G89.29 [facility] [address] [place] [address] January, [facility] [address] [place] [address] January, Drug-induced erectile dysfunction N52.2 [facility] [address] [place] [address] January, Diabetes E11.9 [facility] [address] [place] [address] January, Diabetes E11.9 ; Chronic pain disorder G89.4 ; Lumbago with sciatica, left side M54.42 and Other acute postprocedural pain G89.18 [facility] [address] [place] [address] Dec, Drug-induced erectile dysfunction N52.2 [facility] [address] [place] [address] Nov, Drug-induced erectile dysfunction N52.2 [facility] [address] [place] [address] Nov, Drug-induced erectile dysfunction N52.2 [facility] [address] [place] [address] Oct, Diabetes E11.9 [facility] [address] [place] [address] Oct, Diabetes E11.9 ; Neuropathy, diabetic E11.40 and Drug-induced erectile dysfunction N52.2 [facility] [address] [address] Sep, [facility] [address] [address] Aug, Diabetes type 2, controlled E11.9 [facility] [address] [place] [address] Aug, Diabetic mononeuropathy associated with type 2 diabetes mellitus E11.41 [facility] [address] [place] [address] Jul, [facility] [address] [place] [address] Jul, Primary insomnia F51.01 [facility] [address] [place] [address] Jun, [facility] [address] [place] [address] Jun, Diabetes E11.9 ; Primary insomnia F51.01 and Depression, unspecified depression type F32.9 [facility] [address] [address] Jun, [facility] [address] [place] [address] Jun, [facility] [address] [address] May, [facility] [address] [place] [address] May, Mood disorder F39 [facility] [address] [address] Apr, [facility] [address] [place] [address] Mar, Acute cystitis without hematuria N30.00 [facility] [address] [address] Feb, Diabetes E11.9 [facility] [address] [address] January, [facility] [address] [place] [address] January, [facility] [address] [place] [address] January, Acute cystitis without hematuria N30.00 ; 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 ; Fatigue, unspecified type R53.83 and Weight loss, abnormal R63.4 [facility] [address] [place] [address] January, [facility] [address] [place] [address] Dec, [facility] [address] [place] [address] Nov, [facility] [address] [place] [address] Nov, Neuropathy, diabetic E11.40 [facility] [address] [place] [address] Oct, Neuropathy, diabetic E11.40 [facility] [address] [place] [address] Oct, [facility] [address] [place] [address] Oct, [facility] [address] [address] Oct, [facility] [address] [place] [address] Aug, [facility] [address] [address] Aug, Type 2 diabetes mellitus with foot ulcer E11.621 ; Nausea R11.0 ; Other complications following infusion, transfusion and therapeutic injection, initial encounter T80.89XA ; Hyperlipidemia, mixed E78.2 and Nail ingrowing L60.0 [facility] [address] [address] Jul, [facility] [address] [address] Jul, Diabetes E11.9 [facility] [address] [address] Jul, Type 2 diabetes mellitus with foot ulcer E11.621 and Non-pressure chronic ulcer of other part of left foot with unspecified severity L97.529 [facility] [address] [address] Jun, Diabetes E11.9 ; Shoulder pain, left M25.512 ; Abdominal pain, lower R10.30 ; Hepatitis C, chronic B18.2 and Diabetes mellitus without mention of complication, type II or unspecified type, not stated as uncontrolled 250.00 [facility] [address] [address] Jun, Cellulitis, abdominal wall L03.311 and Nocturnal hypoxemia G47.34 [facility] [address] [address] Jun, Diabetes mellitus without mention of complication, type II or unspecified type, not stated as uncontrolled 250.00 [facility] [address] [place] [address] May, Diabetes mellitus without mention of complication, type II or unspecified type, not stated as uncontrolled 250.00 [facility] [address] [place] [address] May, Abdominal pain 789.00 [facility] [address] [address] May, [facility] [address] [address] May, [facility] [address] [address] May, Diabetes mellitus without mention of complication, type II or unspecified type, not stated as uncontrolled 250.00 [facility] [address] [address] Apr, [facility] [address] [address] Mar, [facility] [address] [address] Mar, Diabetes mellitus without mention of complication, type II or unspecified type, not stated as uncontrolled 250.00 [facility] [address] [place] [address] Feb, Diabetes mellitus without mention of complication, type II or unspecified type, not stated as uncontrolled 250.00 and Chronic pain 338.29 [facility] [address] [address] Feb, [facility] [address] [address] January, Diabetes mellitus without mention of complication, type II or unspecified type, not stated as uncontrolled 250.00 and Chronic pain 338.29 [facility] [address] [address] January, [facility] [address] [address] Dec, [facility] [address] [address] Dec, [facility] [address] [address] Oct, [facility] [address] [address] Oct, [facility] [address] [address] 16 Oct, 2014 [facility] [place] [facility] [address] [id number] [place] [address] Oct, 2014 [facility] [place] [facility] [address] [id number] [place] [address] Oct, 2014 [facility] [place] [facility] [address] [id number] [place] [address] Oct, 2014 [facility] [place] [facility] [address] [id number] [place] [address] Oct, 2014 [facility] [place] [facility] [address] [id number] [place] [address] Oct, 2014 [facility] [place] [facility] [address] [id number] [place] [address] Oct, 2014 [facility] [place] [facility] [address] [facility] [id number] [place] [address] Oct, 2014 [facility] [place] [facility] [address] [facility] [id number] [place] [address] Oct, 2014 [facility] [place] [facility] [address] [facility] [id number] [place] [address] Oct, 2014 [facility] [place] [facility] [address] [facility] [id number] [place] [address] Sep, [facility] [place] [facility] [address] [facility] [id number] [place] [address] Sep, [facility] [place] [facility] [address] [facility] [id number] [place] [address] Aug, [facility] [place] [facility] [address] [id number] [place] [address] Aug, [facility] [place] [facility] [address] [facility] [id number] [place] [address] Aug, [facility] [place] [facility] [address] [facility] [id number] [place] [address] Aug, [facility] [place] [facility] [address] [id number] [place] [address] Aug, [facility] [place] [facility] [address] [id number] [place] [address] Aug, [facility] [place] [facility] [address] [id number] [place] [address] Aug, [facility] [place] [facility] [address] [id number] [place] [address] Aug, [facility] [place] [facility] [address] [id number] [place] [address] Aug, [facility] [place] [facility] [address] [id number] [place] [address] Aug, [facility] [place] [facility] [address] [id number] [place] [address] Jul, [facility] [place] [facility] [address] [id number] [place] [address] Jul, [facility] [place] [facility] [address] [id number] [place] [address] Jun, [facility] [place] [facility] [address] [id number] [place] [address] Jun, [facility] [place] [facility] [address] [id number] [place] [address] Jun, [facility] [place] [facility] [address] [id number] [address] Jun, [facility] [place] [facility] [address] [id number] [place] [address] Jun, [facility] [place] [facility] [address] [id number] [place] [address] Jun, [facility] [place] [facility] [address] [id number] [place] [address] Jun, [facility] [place] [facility] [address] [id number] [place] [address] 30 May, 2013 [facility] [place] [facility] [address] [id number] [place] [address] 30 May, 2013 [facility] [place] [facility] [address] [id number] [place] [address] 30 May, 2013 [facility] [place] [facility] [address] [id number] [place] [address] 30 May, 2013 [facility] [place] [facility] [address] [id number] [place] [address] May, 2013 [facility] [place] [facility] [address] [id number] [place] [address] May, 2013 [facility] [place] [facility] [address] [id number] [place] [address] May, 2013 [facility] [place] [facility] [address] [id number] [place] [address] May, 2013 [facility] [place] [facility] [address] [id number] [place] [address] 24 May, 2013 [facility] [place] [facility] [address] [id number] [place] [address] May, 2013 [facility] [place] [facility] [address] [id number] [place] [address] May, 2013 [facility] [place] [facility] [address] [id number] [place] [address] May, 2013 [facility] [place] [facility] [address] [id number] [place] [address] May, 2013 [facility] [place] [facility] [address] [id number] [place] [address] Mar, 2013 [facility] [place] [facility] [address] [id number] [place] [address] Mar, 2013 [facility] [place] [facility] [address] [id number] [place] [address] Mar, 2013 [facility] [place] [facility] [address] [id number] [place] [address] Mar, [facility] [place] [facility] [address] [id number] [place] [address] Mar, [facility] [place] [facility] [address] [id number] [place] [address] Mar, [facility] [place] [facility] [address] [id number] [place] [address] Feb, [facility] [place] [facility] [address] [id number] [place] [address] Feb, [facility] [place] [facility] [address] [id number] [place] [address] Feb, [facility] [place] [facility] [address] [id number] [place] [address] Feb, [facility] [place] [facility] [address] [id number] [place] [address] Feb, [facility] [place] [facility] [address] [id number] [place] [address] Feb, [facility] [place] [facility] [address] [id number] [place] [address] Feb, [facility] [place] [facility] [address] [id number] [place] [address] Feb, [facility] [place] [facility] [address] [id number] [place] [address] Feb, [facility] [place] [facility] [address] [id number] [place] [address] January, [facility] [place] [facility] [address] [id number] [place] [address] January, [facility] [place] [facility] [address] [id number] [place] [address] Dec, [facility] [place] [facility] [address] [id number] [place] [address] Dec, [facility] [place] [facility] [address] [id number] [place] [address] Dec, [facility] [place] [facility] [address] [id number] [place] [address] Dec, [facility] [place] [facility] [address] [id number] [place] [address] Nov, [facility] [place] [facility] [address] [id number] [place] [address] Nov, [facility] [place] [facility] [address] [id number] [place] [address] Nov, [facility] [place] [facility] [address] [id number] [place] [address] Nov, [facility] [place] [facility] [address] [id number] [place] [address] Nov, [facility] [place] [facility] [address] [id number] [place] [address] Nov, [facility] [place] [facility] [address] [id number] [place] [address] Nov, [facility] [place] [facility] [address] [id number] [place] [address] Nov, [facility] [place] [facility] [address] [id number] [place] [address] Nov, [facility] [place] [facility] [address] [id number] [place] [address] Nov, [facility] [place] [facility] [address] [id number] [place] [address] Oct, [facility] [place] [facility] [address] [id number] [place] [address] Oct, [facility] [place] [facility] [address] [id number] [place] [address] Sep, [facility] [place] [facility] [address] [id number] [place] [address] Sep, [facility] [address] [id number] [place] [address] Sep, [facility] [place] [facility] [address] [id number] [place] [address] Aug, [facility] [place] [facility] [address] [id number] [place] [address] Aug, [facility] [place] [facility] [address] [id number] [place] [address] Aug, [facility] [place] [facility] [address] [id number] [place] [address] Aug, [facility] [place] [facility] [address] [id number] [place] [address] Jul, [facility] [place] [facility] [address] [id number] [place] [address] Jul, [facility] [place] [facility] [address] [id number] [place] [address] Jul, [facility] [place] [facility] [address] [id number] [place] [address] Jul, [facility] [place] [facility] [address] [facility] [id number] [place] [address] Jun, [facility] [place] [facility] [address] [id number] [place] [address] Jun, [facility] [place] [facility] [address] [id number] [address] Jun, [facility] [place] [facility] [address] [id number] [place] [address] Jun, [facility] [place] [facility] [address] [id number] [place] [address] Jun, [facility] [place] [facility] [address] [id number] [address] Jun, [facility] [place] [facility] [address] [id number] [place] [address] Jun, [facility] [address] [id number] [place] [address] Jun, [facility] [place] [facility] [address] [id number] [place] [address] May, [facility] [place] [facility] [address] [id number] [place] [address] Apr, [facility] [place] [facility] [address] [id number] [place] [address] Mar, [facility] [place] [facility] [address] [id number] [place] [address] Mar, [facility] [address] [id number] [place] [address] Feb, [facility] [place] [facility] [address] [id number] [place] [address] Feb, [facility] [place] [facility] [address] [id number] [place] [address] Feb, [facility] [place] [facility] [address] [id number] [place] [address] Dec, [facility] [place] [facility] [address] [id number] [place] [address] Dec, [facility] [place] [facility] [address] [id number] [place] [address] Dec, [facility] [place] [facility] [address] [id number] [place] [address] Nov, [facility] [place] [facility] [address] [id number] [place] [address] Oct, [facility] [place] [facility] [address] [id number] [place] [address] Oct, [facility] [place] [facility] [address] [id number] [place] [address] 13 Oct, 2012 [facility] [address] [id number] [place] [address] 08 Oct, 2012 [facility] [address] [id number] [place] [address] Sep, [facility] [address] [id number] [place] [address] Sep, [facility] [address] [id number] [place] [address] Aug, [facility] [address] [id number] [place] [address] Aug, [facility] [address] [id number] [place] [address] Aug, [facility] [address] [id number] [place] [address] Aug, [facility] [address] [id number] [place] [address] Aug, [facility] [address] [id number] [place] [address] Aug, [facility] [address] [id number] [place] [address] Aug, [facility] [address] [id number] [place] [address] 18 Aug, 2012 [facility] [place] [facility] [address] [id number] [place] [address] 14 Aug, 2012 [facility] [place] [facility] [address] [id number] [place] [address] 14 Aug, 2012 [facility] [place] [facility] [address] [id number] [place] [address] 10 Aug, 2012 [facility] [place] [facility] [address] [facility] [id number] [place] [address] 10 Aug, 2012 [facility] [place] [facility] [address] [id number] [place] [address] 30 Jul, 2012 [facility] [place] [facility] [address] [id number] [place] [address] Jul, [facility] [place] [facility] [address] [id number] [place] [address] Jul, [facility] [place] [facility] [address] [id number] [place] [address] Jul, [facility] [place] [facility] [address] [id number] [place] [address] Jul, [facility] [place] [facility] [address] [id number] [place] [address] Jul, [facility] [place] [facility] [address] [id number] [place] [address] Jul, [facility] [place] [facility] [address] [id number] [place] [address] Jul, [facility] [place] [facility] [address] [id number] [place] [address] Jul, [facility] [place] [facility] [address] [id number] [place] [address] Jul, [facility] [place] [facility] [address] [facility] [id number] [place] [address] Jun, [facility] [place] [facility] [address] [id number] [place] [address] Jun, [facility] [place] [facility] [address] [id number] [place] [address] Jun, [facility] [place] [facility] [address] [id number] [place] [address] Jun, [facility] [place] [facility] [address] [id number] [place] [address] Apr, [facility] [place] [facility] [address] [id number] [place] [address] Mar, [facility] [place] [facility] [address] [id number] [place] [address] Mar, [facility] [place] [facility] [address] [id number] [place] [address] Mar, [facility] [place] [facility] [address] [id number] [place] [address] Mar, [facility] [place] [facility] [address] [id number] [place] [address] Mar, [facility] [place] [facility] [address] [id number] [place] [address] Feb, [facility] [place] [facility] [address] [id number] [place] [address] Feb, [facility] [place] [facility] [address] [id number] [place] [address] January, [facility] [place] [facility] [address] [id number] [place] [address] January, [facility] [place] [facility] [address] [id number] [place] [address] Nov, [facility] [place] [facility] [address] [id number] [place] [address] Nov, [facility] [place] [facility] [address] [id number] [place] [address] Nov, [facility] [place] [facility] [address] [id number] [place] [address] Nov, [facility] [place] [facility] [address] [id number] [place] [address] Nov, [facility] [place] [facility] [address] [id number] [place] [address] Oct, [facility] [place] [facility] [address] [id number] [place] [address] Jul, [facility] [place] [facility] [address] [id number] [place] [address] 09 Jul, 2011 [facility] [address] [id number] [place] [address] Jul, [facility] [address] [facility] [id number] [place] [address] 24 Jun, 2011 [facility] [address] [facility] [id number] [place] [address] Jun, [facility] [address] [id number] [place] [address] Dec, [facility] [address] [facility] [id number] [place] [address] Aug, [facility] [address] [facility] [id number] [place] [address] Aug, [facility] [address] [facility] [id number] [place] [address] Jul, [facility] [address] [facility] [id number] [place] [address] Jul, [facility] [address] [facility] [id number] [place] [address] Jul, [facility] [address] [facility] [id number] [address] Jun, [facility] [address] [facility] [id number] [address] 13 Jun, 2010 [facility] [address] [facility] [id number] [place] [address] Jun, [facility] [address] [facility] [id number] [place] [address] 15 May, 2010 [facility] [address] [facility] [id number] [address] Feb, [facility] [address] [facility] [id number] [address] January, IMMUNIZATIONS No Known Immunizations SOCIAL HISTORY Never Assessed REASON FOR VISIT Controlled Med Refill 03/21/17 PLAN OF CARE VITAL SIGNS MEDICATIONS Medication Instructions Dosage Frequency Start Date End Date Duration Status MS Contin 30 MG Orally every 12 hrs 1 tablet 12h Feb, 28 days Active RESULTS No Results PROCEDURES [...]
--- OUTSIDE RECORDS SUMMARY | 2019-04-25 17:26 | XMS REPORT ---
Author Author RONALD KELLEY Organization [facility] Address [address] [place] [address] Care Team Providers Care Novelties Sales Representative Name Role Phone RONALD KELLEY Unavailable PROBLEMS Type Condition ICD9-CM Code QJF10-DN Code Onset Dates Condition Status SNOMED Code Problem Hyperlipidemia, mixed E78.2 Active 994487255 Problem Depression, unspecified depression type F32.9 Active 29946924 Problem Neuropathy, diabetic E11.40 Active 399596257 Problem Mood disorder F39 Active 41737983 Problem Primary insomnia F51.01 Active 927506356 Problem Hypertension, benign I10 Active 48309397 Problem Edema, unspecified type R60.9 Active 249182581 Problem Diabetes E11.9 Active 592049693 Problem Cirrhosis of liver without ascites, unspecified hepatic cirrhosis type K74.60 Active 58631973 Problem Type 2 diabetes mellitus without complications E11.9 Active 384953814 Problem Precordial pain R07.2 Active 45454682 Problem Chronic obstructive pulmonary disease, unspecified COPD type J44.9 Active 41913062 ALLERGIES No Information ENCOUNTERS Encounter Location Date Diagnosis [facility] [id number] [place] [address] Mar, [facility] [id number] [place] [address] Feb, Cirrhosis of liver without ascites, unspecified hepatic cirrhosis type K74.60 and Edema, unspecified type R60.9 [facility] [id number] [place] [address] Feb, [facility] [id number] [place] [address] January, [facility] [id number] [place] [address] January, Diabetes E11.9 [place] [address], [place] [address] January, Diabetes E11.9 [place] [id number] [address] Dec, Diabetes E11.9 ; Mood disorder F39 ; Hyperlipidemia, mixed E78.2 ; Precordial pain R07.2 ; Type 2 diabetes mellitus with hyperglycemia E11.65 and halfway current use of insulin Z79.4 [facility] [facility] [id number], [place] [address] Dec, [facility] [facility] [id number] [place] [address] Nov, [facility] [facility] [id number] [place] [address] Nov, Cirrhosis of liver without ascites, unspecified hepatic cirrhosis type K74.60 ; Type 2 diabetes mellitus without complications E11.9 ; Precordial pain R07.2 and BMI 40.0-44.9, adult Z68.41 [place] [address], [place] [address] Nov, Cirrhosis of liver without ascites, unspecified hepatic cirrhosis type K74.60 [place] [address], [place] [address] Oct, [facility] [facility] [id number], [place] [address] Oct, Cirrhosis of liver without ascites, unspecified hepatic cirrhosis type K74.60 ; Chronic obstructive pulmonary disease, unspecified COPD type J44.9 and Influenza-like illness R69 [place] [address], [place] [address] Oct, [place] [address], [place] [address] Oct, [facility] [id number] [place] [address] Oct, Cirrhosis of liver without ascites, unspecified hepatic cirrhosis type K74.60 [facility] [address], [place] [address] Sep, [facility] [address], [place] [address] Sep, Chronic obstructive pulmonary disease, unspecified COPD type J44.9 [facility] [id number] [place] [address] Sep, Cirrhosis of liver without ascites, unspecified hepatic cirrhosis type K74.60 and Chronic obstructive pulmonary disease, unspecified COPD type J44.9 [facility] [id number] [place] [address] Aug, [facility] [address] [place] [address] Aug, Cirrhosis of liver without ascites, unspecified hepatic cirrhosis type K74.60 [facility] [address], [place] [address] Aug, [facility] [id number] [place] [address] Aug, [facility] [address], [place] [address] Jul, [facility] [address] [place] [address] Jul, Diabetes E11.9 and Viral gastroenteritis A08.4 [facility] [address] [place] [address] Jul, Cirrhosis of liver without ascites, unspecified hepatic cirrhosis type K74.60 and Chronic obstructive pulmonary disease, unspecified COPD type J44.9 [facility] [address], [place] [address] Jul, [facility] [id number] [place] [address] Jul, Cirrhosis of liver without ascites, unspecified hepatic cirrhosis type K74.60 [facility] [address] [place] [address] Jul, [facility] [id number] [place] [address] Jul, [facility] [id number] [place] [address] Jun, Cirrhosis of liver without ascites, unspecified hepatic cirrhosis type K74.60 and Viral gastroenteritis A08.4 [facility] [address] [place] [address] Jun, Nausea and vomiting, intractability of vomiting not specified, unspecified vomiting type R11.2 ; Acute nonintractable headache, unspecified headache type R51 and History of encephalopathy Z86.69 [facility] [id number] [place] [address] Jun, [facility] [id number] [place] [address] Jun, Neuropathy, diabetic E11.40 and Hypertension, benign I10 [facility] [id number] [place] [address] Jun, [facility] [address] [place] [address] Jun, [facility] [id number] [place] [id number] Jun, [facility] [id number] [place] [address] Jun, [facility] [id number] [place] [address] Jun, [facility] [address] [place] [address] Jun, Viral gastroenteritis A08.4 and Diabetes E11.9 [facility] [id number] [place] [address] May, Lumbago with sciatica, left side M54.42 [facility] [id number] [place] [address] May, Lumbago with sciatica, left side M54.42 [facility] [id number] [place] [address] May, [facility] [id number] [place] [address] May, [facility] [id number] [place] [address] Apr, Lumbago with sciatica, left side M54.42 ; Neuropathy, diabetic E11.40 and Mood disorder F39 [facility] [id number] [place] [address] Apr, [facility] [id number] [place] [address] Apr, [facility] [id number] [place] [address] Mar, Other chronic pain G89.29 and Type 2 diabetes mellitus without complications E11.9 [facility] [address], [place] [address] Mar, Other chronic pain G89.29 [facility] [id number] [place] [address] Feb, Other chronic pain G89.29 [facility] [id number] [place] [address] January, Shoulder pain, left M25.512 and Other chronic pain G89.29 [facility] [id number] [place] [address] January, [facility] [id number] [place] [address] January, Drug-induced erectile dysfunction N52.2 [facility] [address], [place] [address] January, Diabetes E11.9 [facility] [address], [place] [address] January, Diabetes E11.9 ; Chronic pain disorder G89.4 ; Lumbago with sciatica, left side M54.42 and Other acute postprocedural pain G89.18 [facility] [id number], [place] [address] Dec, Drug-induced erectile dysfunction N52.2 [facility] [id number] [place] [address] Nov, Drug-induced erectile dysfunction N52.2 [facility] [id number] [place] [address] Nov, Drug-induced erectile dysfunction N52.2 [facility] [address], [place] [address] Oct, Diabetes E11.9 [facility] [id number] [place] [address] Oct, Diabetes E11.9 ; Neuropathy, diabetic E11.40 and Drug-induced erectile dysfunction N52.2 [facility] [address], [place] [address] Sep, [facility] [address], [place] [address] Aug, Diabetes type 2, controlled E11.9 [facility] [address] [place] [address] Aug, Diabetic mononeuropathy associated with type 2 diabetes mellitus E11.41 [facility] [address], [place] [address] Jul, [facility] [id number] [place] [address] Jul, Primary insomnia F51.01 [facility] [id number] [place] [address] Jun, [facility] [id number] [place] [address] Jun, Diabetes E11.9 ; Primary insomnia F51.01 and Depression, unspecified depression type F32.9 [facility] [id number] [place] [address] Jun, [facility] [id number] [place] [address] Jun, [facility] [id number] [place] [address] May, [facility] [id number] [place] [address] May, Mood disorder F39 [facility] [id number] [place] [address] Apr, [facility] [id number] [place] [address] Mar, Acute cystitis without hematuria N30.00 [facility] [id number] [place] [address] Feb, Diabetes E11.9 [facility] [id number] [place] [address] January, [facility] [id number] [place] [address] January, [facility] [id number] [place] [address] January, Acute cystitis without hematuria N30.00 ; 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 ; Fatigue, unspecified type R53.83 and Weight loss, abnormal R63.4 [facility] [id number] [place] [address] January, [facility] [address], [place] [address] Dec, [facility] [address] [place] [address] Nov, [facility] [id number] [place] [address] Nov, Neuropathy, diabetic E11.40 [facility] [id number] [place] [address] Oct, Neuropathy, diabetic E11.40 [place] [id number] [place] [address] Oct, [facility] [id number] [place] [address] Oct, [facility] [facility] [id number] [place] [address] Oct, [facility] [address], [place] [address] Aug, [place] [id number] [place] [address] Aug, Type 2 diabetes mellitus with foot ulcer E11.621 ; Nausea R11.0 ; Other complications following infusion, transfusion and therapeutic injection, initial encounter T80.89XA ; Hyperlipidemia, mixed E78.2 and Nail ingrowing L60.0 [place] [address], [place] [address] Jul, [facility] [id number] [place] [address] Jul, Diabetes E11.9 [place] [address], [place] [address] Jul, Type 2 diabetes mellitus with foot ulcer E11.621 and Non-pressure chronic ulcer of other part of left foot with unspecified severity L97.529 [place] [id number] [place] [address] Jun, Diabetes E11.9 ; Shoulder pain, left M25.512 ; Abdominal pain, lower R10.30 ; Hepatitis C, chronic B18.2 and Diabetes mellitus without mention of complication, type II or unspecified type, not stated as uncontrolled 250.00 [place] [address] [address] Jun, Cellulitis, abdominal wall L03.311 and Nocturnal hypoxemia G47.34 [place] [id number] [place] [address] Jun, Diabetes mellitus without mention of complication, type II or unspecified type, not stated as uncontrolled 250.00 [place] [address] [address] May, Diabetes mellitus without mention of complication, type II or unspecified type, not stated as uncontrolled 250.00 [place] [id number] [place] [address] May, Abdominal pain 789.00 [place] [address] [address] May, [place] [id number] [place] [address] May, [place] [id number] [place] [address] May, Diabetes mellitus without mention of complication, type II or unspecified type, not stated as uncontrolled 250.00 [place] [id number] [place] [address] Apr, [facility] [id number] [place] [address] Mar, [facility] [id number] [place] [address] Mar, Diabetes mellitus without mention of complication, type II or unspecified type, not stated as uncontrolled 250.00 [facility] [address] [facility] [id number] [address] Feb, Diabetes mellitus without mention of complication, type II or unspecified type, not stated as uncontrolled 250.00 and Chronic pain 338.29 [facility] [id number], [place] [address] Feb, [facility] [address], [place] [address] January, Diabetes mellitus without mention of complication, type II or unspecified type, not stated as uncontrolled 250.00 and Chronic pain 338.29 [facility] [address], [place] [address] January, [facility] [address], [place] [address] Dec, [facility] [address], [place] [address] Dec, [facility] [address], [place] [address] Oct, [facility] [address], [place] [address] Oct, [facility] [address], [place] [address] Oct, [facility] [address], [place] [address] Oct, [facility] [id number], [place] [address] Oct, [facility] [address], [place] [address] Oct, [facility] [id number] [address] Oct, [facility] [address] [place] [address] Oct, 2014 [facility] [place] [facility] [address] [id number] [place] [address] Oct, 2014 [facility] [place] [facility] [address] [id number] [place] [address] Oct, 2014 [facility] [place] [facility] [address] [id number] [place] [address] Oct, 2014 [facility] [place] [facility] [address] [id number] [place] [address] Oct, 2014 [facility] [place] [facility] [address] [id number] [place] [address] Sep, [facility] [place] [facility] [address] [id number] [place] [address] Sep, [facility] [place] [facility] [address] [facility] [id number] [place] [address] Aug, [facility] [place] [facility] [address] [id number] [place] [address] Aug, [facility] [place] [facility] [address] [id number] [place] [address] Aug, [facility] [place] [facility] [address] [facility] [id number] [place] [address] Aug, [facility] [place] [facility] [address] [facility] [id number] [place] [address] Aug, [facility] [place] [facility] [address] [id number] [place] [address] Aug, [facility] [place] [facility] [address] [id number] [place] [address] Aug, [facility] [place] [facility] [address] [id number] [place] [address] Aug, [facility] [place] [facility] [address] [id number] [place] [address] Aug, [facility] [place] [facility] [address] [id number] [place] [address] Aug, [facility] [place] [facility] [address] [id number] [place] [address] Jul, [facility] [place] [facility] [address] [id number] [place] [address] Jul, [facility] [place] [facility] [address] [id number] [place] [address] Jun, [facility] [place] [facility] [address] [id number] [place] [address] Jun, [facility] [place] [facility] [address] [id number] [place] [address] Jun, [facility] [place] [facility] [address] [id number] [place] [address] Jun, [facility] [place] [facility] [address] [id number] [place] [address] Jun, [facility] [place] [facility] [address] [id number] [place] [address] Jun, [facility] [place] [facility] [address] [id number] [place] [address] Jun, [facility] [place] [facility] [address] [id number], [place] [address] 30 May, 2014 [facility] [place] [facility] [address] [id number], [place] [address] 30 May, 2013 [facility] [place] [facility] [address] [id number] [place] [address] 30 May, 2014 [facility] [place] [facility] [address] [id number] [place] [address] 30 May, 2013 [facility] [place] [facility] [address] [id number] [place] [address] 26 May, 2014 [facility] [place] [facility] [address] [id number] [place] [address] May, 2013 [facility] [place] [facility] [address] [id number] [place] [address] May, 2013 [facility] [place] [facility] [address] [id number] [place] [address] May, 2013 [facility] [place] [facility] [address] [id number] [place] [address] 24 May, 2013 [facility] [place] [facility] [address] [id number] [place] [address] May, 2013 [facility] [place] [facility] [address] [id number] [place] [address] May, 2013 [facility] [place] [facility] [address] [id number] [place] [address] May, 2013 [facility] [place] [facility] [address] [id number] [place] [address] May, 2013 [facility] [place] [facility] [address] [id number] [place] [address] Mar, [facility] [place] [facility] [address] [id number] [place] [address] Mar, [facility] [place] [facility] [address] [id number] [place] [address] Mar, [facility] [place] [facility] [address] [id number] [place] [address] Mar, [facility] [place] [facility] [address] [id number] [place] [address] Mar, [facility] [place] [facility] [address] [id number] [place] [address] Mar, [facility] [place] [facility] [address] [id number] [place] [address] Feb, [facility] [place] [facility] [address] [id number] [place] [address] Feb, [facility] [place] [facility] [address] [id number] [place] [address] Feb, [facility] [place] [facility] [address] [id number] [place] [address] Feb, [facility] [place] [facility] [address] [id number] [place] [address] Feb, [facility] [place] [facility] [address] [id number] [place] [address] Feb, [facility] [place] [facility] [address] [id number] [place] [address] Feb, [facility] [place] [facility] [address] [id number] [place] [address] Feb, [facility] [place] [facility] [address] [id number] [place] [address] Feb, [facility] [place] [facility] [address] [id number] [place] [address] January, [facility] [place] [facility] [address] [id number] [place] [address] January, [facility] [place] [facility] [address] [id number] [place] [address] Dec, [facility] [place] [facility] [address] [id number] [place] [address] Dec, [facility] [place] [facility] [address] [id number] [place] [address] Dec, [facility] [place] [facility] [address] [id number] [place] [address] Dec, [facility] [place] [facility] [address] [id number] [place] [address] Nov, [facility] [place] [facility] [address] [id number] [place] [address] Nov, [facility] [place] [facility] [address] [id number] [place] [address] Nov, [facility] [place] [facility] [address] [id number] [place] [address] Nov, [facility] [place] [facility] [address] [id number] [place] [address] Nov, [facility] [place] [facility] [address] [id number] [place] [address] Nov, [facility] [place] [facility] [address] [id number] [place] [address] Nov, [facility] [place] [facility] [address] [id number] [place] [address] Nov, [facility] [place] [facility] [address] [id number] [place] [address] Nov, [facility] [place] [facility] [address] [id number] [place] [address] Nov, [facility] [place] [facility] [address] [id number] [place] [address] Oct, [facility] [place] [facility] [address] [id number] [place] [address] Oct, [facility] [place] [facility] [address] [id number] [place] [address] Sep, [facility] [place] [facility] [address] [id number] [place] [address] Sep, [facility] [place] [facility] [address] [id number] [place] [address] Sep, [facility] [place] [facility] [address] [id number] [place] [address] Aug, [facility] [place] [facility] [address] [id number] [place] [address] Aug, [facility] [place] [facility] [address] [id number] [place] [address] Aug, [facility] [place] [facility] [address] [id number] [place] [address] Aug, [facility] [place] [facility] [address] [id number] [place] [address] Jul, [facility] [place] [facility] [address] [id number] [place] [address] Jul, [facility] [place] [facility] [address] [id number] [place] [address] Jul, [facility] [place] [facility] [address] [address] [id number] [place] [address] Jul, [facility] [place] [facility] [address] [id number] [place] [address] Jun, [facility] [place] [facility] [address] [id number] [place] [address] Jun, [facility] [place] [facility] [address] [id number] [place] [address] Jun, [facility] [place] [facility] [address] [id number] [place] [address] Jun, [facility] [place] [facility] [address] [id number] [place] [address] Jun, [facility] [place] [facility] [address] [id number] [place] [address] Jun, [facility] [place] [facility] [address] [id number] [place] [address] Jun, [facility] [place] [facility] [address] [id number] [place] [address] Jun, [facility] [place] [facility] [address] [id number] [place] [address] May, [facility] [place] [facility] [address] [id number] [place] [address] Apr, [facility] [place] [facility] [address] [id number] [place] [address] Mar, [facility] [address] [id number] [place] [address] Mar, [facility] [place] [facility] [address] [id number] [place] [address] Feb, [facility] [place] [facility] [address] [id number] [place] [address] Feb, [facility] [place] [facility] [address] [id number] [place] [address] Feb, [facility] [place] [facility] [address] [id number] [place] [address] 24 Dec, 2012 [facility] [place] [facility] [address] [id number] [place] [address] Dec, [facility] [place] [facility] [address] [id number] [place] [address] Dec, [facility] [place] [facility] [address] [id number] [place] [address] Nov, [facility] [place] [facility] [address] [id number] [place] [address] Oct, [facility] [place] [facility] [address] [id number] [place] [address] Oct, [facility] [place] [facility] [address] [id number] [place] [address] Oct, [facility] [place] [facility] [address] [id number] [place] [address] 08 Oct, 2012 [facility] [place] [facility] [address] [id number] [place] [address] Sep, [facility] [place] [facility] [address] [id number] [place] [address] Sep, [facility] [place] [facility] [address] [id number] [place] [address] Aug, [facility] [place] [facility] [address] [id number] [place] [address] 31 Aug, 2012 [facility] [address] [id number] [place] [address] 26 Aug, 2012 [facility] [place] [facility] [address] [id number] [place] [address] 26 Aug, 2012 [facility] [address] [id number] [place] [address] Aug, [facility] [address] [id number] [place] [address] Aug, [facility] [address] [id number] [place] [address] 18 Aug, 2012 [facility] [address] [id number] [place] [address] 18 Aug, 2012 [facility] [address] [id number] [place] [address] 14 Aug, 2012 [facility] [address] [id number] [place] [address] 14 Aug, 2012 [facility] [address] [id number] [place] [address] 10 Aug, 2012 [facility] [address] [id number] [place] [address] 10 Aug, 2012 [facility] [place] [facility] [address] [id number] [place] [address] 30 Jul, 2012 [facility] [place] [facility] [address] [id number] [place] [address] 30 Jul, 2012 [facility] [place] [facility] [address] [id number] [place] [address] Jul, [facility] [place] [facility] [address] [id number] [place] [address] Jul, [facility] [place] [facility] [address] [id number] [place] [address] Jul, [facility] [place] [facility] [address] [id number] [place] [address] Jul, [facility] [place] [facility] [address] [id number] [place] [address] Jul, [facility] [place] [facility] [address] [id number] [place] [address] Jul, [facility] [place] [facility] [address] [id number] [place] [address] Jul, [facility] [place] [facility] [address] [id number] [place] [address] Jul, [facility] [place] [facility] [address] [id number] [place] [address] Jun, [facility] [place] [facility] [address] [id number] [place] [address] Jun, [facility] [place] [facility] [address] [id number] [place] [address] Jun, [facility] [place] [facility] [address] [id number] [place] [address] Jun, [facility] [place] [facility] [address] [id number] [place] [address] Apr, [facility] [place] [facility] [address] [id number] [place] [address] Mar, [facility] [place] [facility] [address] [id number], [place] [address] Mar, [facility] [place] [facility] [address] [id number] [place] [address] Mar, [facility] [place] [facility] [address] [id number] [place] [address] Mar, [facility] [place] [facility] [address] [id number], [place] [address] Mar, [facility] [place] [facility] [address] [id number], [place] [address] Feb, [facility] [place] [facility] [address] [id number] [place] [address] Feb, [facility] [place] [facility] [address] [id number] [place] [address] January, [facility] [place] [facility] [address] [facility] [id number] [place] [address] January, [facility] [place] [facility] [address] [id number] [place] [address] Nov, [facility] [place] [facility] [address] [id number] [place] [address] Nov, [facility] [place] [facility] [address] [id number] [place] [address] Nov, [facility] [place] [facility] [address] [facility] [id number] [place] [address] Nov, [facility] [place] [facility] [address] [facility] [id number] [place] [address] Nov, [facility] [place] [facility] [address] [facility] [id number] [place] [address] Oct, [facility] [place] [facility] [address] [facility] [id number] [place] [address] Jul, [facility] [place] [facility] [address] [id number], [place] [address] Jul, [facility] [place] [facility] [address] [facility] [id number] [place] [address] Jul, [facility] [place] [facility] [address] [id number] [place] [address] Jun, [facility] [place] [facility] [address] [facility] [id number] [place] [address] Jun, [facility] [place] [facility] [address] [facility] [id number] [place] [address] Dec, [facility] [place] [facility] [id number], [place] [address] Aug, [facility] [id number], [place] [address] Aug, [facility] [id number], [place] [address] Jul, [facility] [id number], [place] [address] Jul, [facility] [id number], [place] [address] Jul, [facility] [id number] [place] [address] Jun, [facility] [id number] [place] [address] Jun, [facility] [id number] [place] [address] Jun, [facility] [address], [place] [address] May, [facility] [address], [place] [address] Feb, [facility] [id number], [place] [address] January, IMMUNIZATIONS No Known Immunizations SOCIAL HISTORY Never Assessed REASON FOR VISIT Requests return call PLAN OF CARE VITAL SIGNS MEDICATIONS Medication Instructions Dosage Frequency Start Date End Date Duration Status Albuterol Sulfate (2.5 MG/3ML) 0.083% Inhalation every 4 hrs 3 ml as needed 4h Sep, 30 days Active Nebulizer - as directed Sep, lifetime Active RESULTS No Results PROCEDURES No Known [...]
--- OUTSIDE RECORDS SUMMARY | 2019-04-25 17:26 | XMS REPORT ---
Author Author RONALD KELLEY Organization [facility] Address [address] [place] [address] Care Team Providers Care Bag Worker Name Role Phone RONALD KELLEY Unavailable PROBLEMS Type Condition ICD9-CM Code TWO84-RK Code Onset Dates Condition Status SNOMED Code Problem Hypertension, benign I10 Active 15025523 Problem Neuropathy, diabetic E11.40 Active 908035794 Problem Hyperlipidemia, mixed E78.2 Active 631645473 Problem Mood disorder F39 Active 45636570 Problem Primary insomnia F51.01 Active 683373271 Problem Diabetes E11.9 Active 627039691 Problem Precordial pain R07.2 Active 33234387 Problem Type 2 diabetes mellitus without complications E11.9 Active 973077355 Problem Depression, unspecified depression type F32.9 Active 90111029 Problem Chronic obstructive pulmonary disease, unspecified COPD type J44.9 Active 98519659 Problem Cirrhosis of liver without ascites, unspecified hepatic cirrhosis type K74.60 Active 68696953 ALLERGIES Substance Reaction Event Type Date Status Tylenol liver problems Drug Allergy Jul, Active Aspirin liver problems Drug Allergy Jul, Active ENCOUNTERS Encounter Location Date Diagnosis [facility] [id number] [address] January, [facility] [id number] [place] [address] January, Diabetes E11.9 [facility] [id number] [address] January, Diabetes E11.9 [facility] [id number] [place] [address] Dec, Diabetes E11.9 ; Mood disorder F39 ; Hyperlipidemia, mixed E78.2 ; Precordial pain R07.2 ; Type 2 diabetes mellitus with hyperglycemia E11.65 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 [facility] [address], [place] [address] Dec, [facility] [id number] [address] Nov, [facility] [address], [place] [address] Nov, Cirrhosis of liver without ascites, unspecified hepatic cirrhosis type K74.60 ; Type 2 diabetes mellitus without complications E11.9 ; Precordial pain R07.2 and BMI 40.0-44.9, adult Z68.41 [id number] [place] [address] Nov, Cirrhosis of liver without ascites, unspecified hepatic cirrhosis type K74.60 [facility] [facility] [address], [place] [address] Oct, [facility] [id number] [place] [address] Oct, Cirrhosis of liver without ascites, unspecified hepatic cirrhosis type K74.60 ; Chronic obstructive pulmonary disease, unspecified COPD type J44.9 and Influenza-like illness R69 [facility], [place] [address] Oct, [facility] [facility] [address], [place] [address] Oct, [facility] [address], [place] [address] Oct, Cirrhosis of liver without ascites, unspecified hepatic cirrhosis type K74.60 [place] [address], [place] [address] Sep, [facility] [facility] [address], [place] [address] Sep, Chronic obstructive pulmonary disease, unspecified COPD type J44.9 [place] [address], [place] [address] Sep, Cirrhosis of liver without ascites, unspecified hepatic cirrhosis type K74.60 and Chronic obstructive pulmonary disease, unspecified COPD type J44.9 [facility] [address] [address] Aug, [facility] [address] [place] [address] Aug, Cirrhosis of liver without ascites, unspecified hepatic cirrhosis type K74.60 [facility] [id number] [place] [address] Aug, [facility] [id number] [place] [address] Aug, [facility] [id number] [place] [address] Jul, [facility] [id number] [place] [address] Jul, Diabetes E11.9 and Viral gastroenteritis A08.4 [facility] [id number] [place] [address] Jul, Cirrhosis of liver without ascites, unspecified hepatic cirrhosis type K74.60 and Chronic obstructive pulmonary disease, unspecified COPD type J44.9 [facility] [address], [place] [address] Jul, [facility] [id number] [place] [address] Jul, Cirrhosis of liver without ascites, unspecified hepatic cirrhosis type K74.60 [facility] [id number] [address] Jul, [facility] [address], [place] [address] Jul, [facility] [id number] [place] [address] Jun, Cirrhosis of liver without ascites, unspecified hepatic cirrhosis type K74.60 and Viral gastroenteritis A08.4 [facility] [address] [address] Jun, Nausea and vomiting, intractability of vomiting not specified, unspecified vomiting type R11.2 ; Acute nonintractable headache, unspecified headache type R51 and History of encephalopathy Z86.69 [facility] [address] [address] Jun, [facility] [address] [address] Jun, Neuropathy, diabetic E11.40 and Hypertension, benign I10 [facility] [address] [address] Jun, [facility] [address] [address] Jun, [facility] [address] [id number] Jun, [facility] [address] [address] Jun, [facility] [address] [address] Jun, [facility] [address] [address] Jun, Viral gastroenteritis A08.4 and Diabetes E11.9 [facility] [address] [address] May, Lumbago with sciatica, left side M54.42 [facility] [address] [address] 14 May, 2017 Lumbago with sciatica, left side M54.42 [facility] [address] [address] May, [facility] [address], [place] [address] May, [facility] [id number] [place] [address] Apr, Lumbago with sciatica, left side M54.42 ; Neuropathy, diabetic E11.40 and Mood disorder F39 [facility] [id number] [place] [address] Apr, [facility] [id number] [place] [address] Apr, [facility] [id number] [place] [address] Mar, Other chronic pain G89.29 and Type 2 diabetes mellitus without complications E11.9 [facility] [id number] [place] [address] Mar, Other chronic pain G89.29 [facility] [id number] [place] [address] Feb, Other chronic pain G89.29 [facility] [id number] [place] [address] January, Shoulder pain, left M25.512 and Other chronic pain G89.29 [facility] [address] [address] January, [facility] [id number] [place] [address] January, Drug-induced erectile dysfunction N52.2 [facility] [id number] [place] [address] January, Diabetes E11.9 [facility] [address] [place] [address] January, Diabetes E11.9 ; Chronic pain disorder G89.4 ; Lumbago with sciatica, left side M54.42 and Other acute postprocedural pain G89.18 [facility] [address], [place] [address] Dec, Drug-induced erectile dysfunction N52.2 [facility] [address], [place] [address] Nov, Drug-induced erectile dysfunction N52.2 [facility] [address] [place] [address] Nov, Drug-induced erectile dysfunction N52.2 [facility] [address], [place] [address] 03 Oct, 2016 Diabetes E11.9 [facility] [id number] [place] [address] Oct, Diabetes E11.9 ; Neuropathy, diabetic E11.40 and Drug-induced erectile dysfunction N52.2 [facility] [address] [address] Sep, [facility] [id number] [place] [address] Aug, Diabetes type 2, controlled E11.9 [facility] [address] [place] [address] Aug, Diabetic mononeuropathy associated with type 2 diabetes mellitus E11.41 [facility] [address], [place] [address] Jul, [facility] [address], [place] [address] Jul, Primary insomnia F51.01 [facility] [id number] [place] [address] Jun, [facility] [address] [place] [address] 06 Jun, 2016 Diabetes E11.9 ; Primary insomnia F51.01 and Depression, unspecified depression type F32.9 [address], [place] [address] Jun, [facility] [address], [place] [address] Jun, [facility] [address], [place] [address] May, [facility] [id number] [place] [address] May, Mood disorder F39 [facility] [address], [place] [address] Apr, [facility] [id number], [place] [address] Mar, Acute cystitis without hematuria N30.00 [facility] [address] [place] [address] Feb, Diabetes E11.9 [facility] [address], [place] [address] January, [facility] [address], [place] [address] January, [facility] [address], [place] [address] January, Acute cystitis without hematuria N30.00 ; 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 ; Fatigue, unspecified type R53.83 and Weight loss, abnormal R63.4 [facility] [address], [place] [address] January, [facility] [address], [place] [address] Dec, [facility] [address], [place] [address] Nov, [facility] [address], [place] [address] Nov, Neuropathy, diabetic E11.40 [place] [address] [place] [address] Oct, Neuropathy, diabetic E11.40 [place] [id number] [place] [address] Oct, [address] [id number] [place] [address] Oct, [place] [id number] [place] [address] Oct, [id number] [place] [address] Aug, [place] [id number] [place] [address] Aug, Type 2 diabetes mellitus with foot ulcer E11.621 ; Nausea R11.0 ; Other complications following infusion, transfusion and therapeutic injection, initial encounter T80.89XA ; Hyperlipidemia, mixed E78.2 and Nail ingrowing L60.0 [place] [id number] [place] [address] Jul, [place] [id number] [place] [address] Jul, Diabetes E11.9 [place] [id number] [place] [address] Jul, Type 2 diabetes mellitus with foot ulcer E11.621 and Non-pressure chronic ulcer of other part of left foot with unspecified severity L97.529 [place] [address] [place] [address] Jun, Diabetes E11.9 ; Shoulder pain, left M25.512 ; Abdominal pain, lower R10.30 ; Hepatitis C, chronic B18.2 and Diabetes mellitus without mention of complication, type II or unspecified type, not stated as uncontrolled 250.00 [place] [id number] [place] [address] Jun, Cellulitis, abdominal wall L03.311 and Nocturnal hypoxemia G47.34 [facility] [id number] [place] [address] Jun, Diabetes mellitus without mention of complication, type II or unspecified type, not stated as uncontrolled 250.00 [facility] [id number] [place] [address] May, Diabetes mellitus without mention of complication, type II or unspecified type, not stated as uncontrolled 250.00 [facility] [id number] [place] [address] May, Abdominal pain 789.00 [id number] [place] [address] May, [place] [id number] [place] [address] May, [facility] [id number] [place] [address] May, Diabetes mellitus without mention of complication, type II or unspecified type, not stated as uncontrolled 250.00 [place] [id number] [place] [address] Apr, [facility] [id number] [place] [address] Mar, [facility] [id number] [place] [address] Mar, Diabetes mellitus without mention of complication, type II or unspecified type, not stated as uncontrolled 250.00 [facility] [id number] [place] [address] Feb, Diabetes mellitus without mention of complication, type II or unspecified type, not stated as uncontrolled 250.00 and Chronic pain 338.29 [facility] [id number] [place] [address] Feb, [facility] [address], [place] [address] January, Diabetes mellitus without mention of complication, type II or unspecified type, not stated as uncontrolled 250.00 and Chronic pain 338.29 [facility] [address], [place] [address] January, [facility] [id number] [place] [address] Dec, [facility] [id number] [place] [address] Dec, [facility] [id number] [place] [address] Oct, [facility] [id number] [place] [address] Oct, [facility] [id number] [place] [address] Oct, [facility] [address], [place] [address] Oct, [facility] [address], [place] [address] Oct, [facility] [address], [place] [address] Oct, [facility] [address], [place] [address] Oct, [facility] [address], [place] [address] Oct, [facility] [address], [place] [address] Oct, [facility] [address], [place] [address] Oct, [facility] [address], [place] [address] Oct, [facility] [place] [facility] [address] [id number] [place] [address] Oct, [facility] [place] [facility] [address] [id number] [place] [address] Sep, [facility] [place] [facility] [address] [id number] [place] [address] Sep, [facility] [place] [facility] [address] [id number] [place] [address] Aug, [facility] [place] [facility] [address] [id number] [place] [address] Aug, [facility] [place] [facility] [address] [id number] [place] [address] Aug, [facility] [place] [facility] [address] [id number] [place] [address] Aug, [facility] [place] [facility] [address] [id number] [place] [address] Aug, [facility] [place] [facility] [address] [id number] [place] [address] Aug, [facility] [place] [facility] [address] [id number] [place] [address] Aug, [facility] [place] [facility] [address] [id number] [place] [address] Aug, [facility] [place] [facility] [address] [id number] [place] [address] Aug, [facility] [place] [facility] [address] [id number] [place] [address] Aug, [facility] [place] [facility] [address] [id number] [place] [address] Jul, [facility] [place] [facility] [address] [id number] [place] [address] Jul, [facility] [place] [facility] [address] [id number] [place] [address] 29 Jun, 2013 [facility] [place] [facility] [address] [id number] [place] [address] 29 Jun, 2014 [facility] [place] [facility] [address] [id number] [place] [address] 15 Jun, 2014 [facility] [place] [facility] [address] [id number] [place] [address] 15 Jun, 2014 [facility] [place] [facility] [address] [id number] [place] [address] 14 Jun, 2014 [facility] [place] [facility] [address] [id number] [place] [address] 03 Jun, 2014 [facility] [place] [facility] [address] [id number] [place] [address] 03 Jun, 2014 [facility] [place] [facility] [address] [id number] [place] [address] 30 Sep, 2013 [facility] [place] [facility] [address] [id number] [place] [address] 30 Sep, 2013 [facility] [place] [facility] [address] [id number] [place] [address] 30 Sep, 2013 [facility] [place] [facility] [address] [id number] [place] [address] 30 Sep, 2013 [facility] [place] [facility] [address] [id number] [place] [address] 26 Sep, 2013 [facility] [place] [facility] [address] [id number] [place] [address] 26 Sep, 2013 [facility] [place] [facility] [address] [id number] [place] [address] 26 Sep, 2013 [facility] [place] [facility] [address] [id number] [place] [address] 26 Sep, 2013 [facility] [place] [facility] [address] [id number] [place] [address] 24 Sep, 2013 [facility] [place] [facility] [address] [id number] [place] [address] May, 2013 [facility] [place] [facility] [address] [id number] [place] [address] May, 2013 [facility] [place] [facility] [address] [id number] [place] [address] May, 2013 [facility] [place] [facility] [address] [id number] [place] [address] May, 2013 [facility] [place] [facility] [address] [id number] [place] [address] Mar, [facility] [place] [facility] [address] [id number] [place] [address] Mar, [facility] [place] [facility] [address] [id number] [place] [address] Mar, [facility] [place] [facility] [address] [id number] [place] [address] Mar, [facility] [place] [facility] [address] [id number] [place] [address] Mar, [facility] [place] [facility] [address] [id number] [place] [address] Mar, [facility] [place] [facility] [address] [id number] [place] [address] Feb, [facility] [place] [facility] [address] [id number] [place] [address] Feb, [facility] [place] [facility] [address] [id number] [place] [address] Feb, [facility] [place] [facility] [address] [id number] [place] [address] Feb, [facility] [place] [facility] [address] [id number] [place] [address] Feb, [facility] [place] [facility] [address] [id number] [place] [address] Feb, [facility] [place] [facility] [address] [id number] [place] [address] Feb, [facility] [place] [facility] [address] [id number] [place] [address] Feb, [facility] [place] [facility] [address] [id number] [place] [address] Feb, [facility] [place] [facility] [address] [id number] [place] [address] January, [facility] [place] [facility] [address] [id number] [place] [address] January, [facility] [place] [facility] [address] [id number] [place] [address] Dec, [facility] [place] [facility] [address] [id number] [place] [address] Dec, [facility] [place] [facility] [address] [id number] [place] [address] Dec, [facility] [place] [facility] [address] [id number] [place] [address] Dec, [facility] [place] [facility] [address] [id number] [place] [address] Nov, [facility] [place] [facility] [address] [id number] [place] [address] Nov, [facility] [place] [facility] [address] [id number] [place] [address] Nov, [facility] [place] [facility] [address] [id number] [place] [address] Nov, [facility] [place] [facility] [address] [id number] [place] [address] Nov, [facility] [place] [facility] [address] [id number] [place] [address] Nov, [facility] [place] [facility] [address] [id number] [place] [address] Nov, [facility] [place] [facility] [address] [id number] [place] [address] Nov, [facility] [place] [facility] [address] [id number] [place] [address] Nov, [facility] [place] [facility] [address] [id number] [place] [address] Nov, [facility] [place] [facility] [address] [id number] [place] [address] Oct, [facility] [place] [facility] [address] [id number] [place] [address] Oct, [facility] [place] [facility] [address] [id number] [place] [address] Sep, [facility] [place] [facility] [address] [id number] [place] [address] Sep, [facility] [place] [facility] [address] [id number] [place] [address] Sep, [facility] [place] [facility] [address] [id number] [place] [address] Aug, [facility] [place] [facility] [address] [id number] [place] [address] Aug, [facility] [place] [facility] [address] [id number] [place] [address] Aug, [facility] [place] [facility] [address] [id number] [place] [address] Aug, [facility] [place] [facility] [address] [id number] [place] [address] Jul, [facility] [place] [facility] [address] [id number] [place] [address] Jul, [facility] [place] [facility] [address] [id number] [place] [address] Jul, [facility] [place] [facility] [address] [id number] [place] [address] Jul, [facility] [place] [facility] [address] [id number] [place] [address] Jun, [facility] [place] [facility] [address] [id number] [place] [address] Jun, [facility] [place] [facility] [address] [id number] [place] [address] Jun, [facility] [place] [facility] [address] [id number] [place] [address] Jun, [facility] [place] [facility] [address] [id number] [place] [address] Jun, [facility] [place] [facility] [address] [id number] [place] [address] Jun, [facility] [place] [facility] [address] [id number] [place] [address] Jun, [facility] [place] [facility] [address] [id number] [place] [address] Jun, [facility] [place] [facility] [address] [id number] [place] [address] May, [facility] [place] [facility] [address] [id number], [place] [address] Apr, [facility] [place] [facility] [address] [id number], [place] [address] Mar, [facility] [place] [facility] [address] [id number] [place] [address] Mar, [facility] [place] [facility] [address] [id number], [place] [address] Feb, [facility] [place] [facility] [address] [id number] [place] [address] Feb, [facility] [place] [facility] [address] [id number] [place] [address] 10 Feb, 2013 [facility] [address] [id number] [place] [address] 24 Dec, 2012 [facility] [place] [facility] [address] [id number] [place] [address] Dec, [facility] [address] [id number] [place] [address] Dec, [facility] [place] [facility] [address] [id number] [place] [address] Nov, [facility] [address] [id number] [place] [address] Oct, [facility] [address] [id number] [place] [address] Oct, [facility] [address] [id number] [place] [address] Oct, [facility] [address] [id number] [place] [address] 08 Oct, 2012 [facility] [address] [id number] [place] [address] Sep, [facility] [address] [facility] [id number] [place] [address] Sep, [facility] [address] [id number] [place] [address] Aug, [facility] [address] [id number] [place] [address] Aug, [facility] [place] [facility] [address] [id number] [place] [address] Aug, [facility] [place] [facility] [address] [id number] [place] [address] Aug, [facility] [place] [facility] [address] [id number] [place] [address] Aug, [facility] [place] [facility] [address] [id number] [place] [address] 21 Aug, 2012 [facility] [place] [facility] [address] [id number] [place] [address] 18 Aug, 2012 [facility] [place] [facility] [address] [id number] [place] [address] 18 Aug, 2012 [facility] [place] [facility] [address] [id number] [place] [address] 14 Aug, 2012 [facility] [place] [facility] [address] [id number] [place] [address] 14 Aug, 2012 [facility] [place] [facility] [address] [id number] [place] [address] Aug, [facility] [place] [facility] [address] [id number] [place] [address] Aug, [facility] [place] [facility] [address] [id number] [place] [address] 30 Jul, 2012 [facility] [place] [facility] [address] [id number] [place] [address] 30 Jul, 2012 [facility] [place] [facility] [address] [id number] [place] [address] Jul, [facility] [place] [facility] [address] [id number], [place] [address] Jul, [facility] [place] [facility] [address] [id number], [place] [address] Jul, [facility] [place] [facility] [address] [id number] [place] [address] Jul, [facility] [place] [facility] [address] [id number] [place] [address] Jul, [facility] [place] [facility] [address] [id number] [place] [address] Jul, [facility] [place] [facility] [address] [id number] [place] [address] 16 Jul, 2012 [facility] [place] [facility] [address] [id number] [place] [address] Jul, [facility] [place] [facility] [address] [id number] [place] [address] Jun, [facility] [place] [facility] [address] [id number] [place] [address] Jun, [facility] [place] [facility] [address] [id number] [place] [address] Jun, [facility] [place] [facility] [address] [id number] [place] [address] Jun, [facility] [place] [facility] [address] [id number] [place] [address] Apr, [facility] [place] [facility] [address] [id number] [place] [address] Mar, [facility] [place] [facility] [address] [id number] [place] [address] Mar, [facility] [place] [facility] [address] [id number] [place] [address] Mar, [facility] [place] [facility] [address] [id number] [place] [address] Mar, [facility] [place] [facility] [address] [id number] [place] [address] Mar, [facility] [place] [facility] [address] [id number] [place] [address] Feb, [facility] [place] [facility] [address] [id number] [place] [address] Feb, [facility] [place] [facility] [address] [id number] [place] [address] January, [facility] [place] [facility] [address] [id number] [place] [address] January, [facility] [place] [facility] [address] [id number] [place] [address] 27 Nov, 2011 [facility] [place] [facility] [address] [id number] [place] [address] 21 Nov, 2011 [facility] [place] [facility] [address] [id number] [place] [address] 16 Nov, 2011 [facility] [place] [facility] [address] [id number] [place] [address] Nov, [facility] [place] [facility] [address] [id number] [place] [address] Nov, [facility] [place] [facility] [address] [id number] [place] [address] Oct, [facility] [place] [facility] [address] [id number] [place] [address] Jul, [facility] [place] [facility] [address] [id number] [place] [address] Jul, [facility] [place] [facility] [address] [id number] [place] [address] Jul, [facility] [place] [facility] [address] [id number] [place] [address] Jun, [facility] [place] [facility] [address] [id number] [place] [address] Jun, [facility] [place] [facility] [address] [id number] [place] [address] Dec, [facility] [place] [facility] [address] [id number] [place] [address] Aug, [facility] [place] [facility] [address] [id number] [place] [address] Aug, [facility] [place] [facility] [address] [id number] [place] [address] Jul, [facility] [place] [facility] [address] [id number], [place] [address] Jul, [facility] [address] [id number], [place] [address] Jul, [facility] [address] [id number], [place] [address] Jun, [facility] [id number], [place] [address] Jun, [facility] [id number], [place] [address] Jun, [facility] [id number], [place] [address] May, [facility] [id number], [place] [address] Feb, [facility] [address] [id number], [place] [address] January, IMMUNIZATIONS No Known Immunizations SOCIAL HISTORY Never Assessed REASON FOR VISIT ESLD---MAURICE Bonilla, pt. was scheduled for a liver ultrasound which he no showed PLAN OF CARE Activity Details Follow Up after biopsy Reason: VITAL SIGNS Height 69 in 2017-08-13 Weight 238.9 lbs 2017-08-13 Temperature 98.2 degrees Fahrenheit 2017-08-13 Heart Rate 78 bpm 2017-08-13 Respiratory Rate 18 2017-08-13 BMI 35.28 kg/m2 2017-08-13 Blood pressure systolic 138 mmHg 2017-08-13 Blood pressure diastolic 82 mmHg 2017-08-13 MEDICATIONS Medication Instructions Dosage Frequency Start Date End Date Duration Status Levemir FlexTouch 100 UNIT/ML Subcutaneous at bedtime 30 units Active Omeprazole 20 Orally Once a day 1 capsule 24h Active BD Pen Needle Short U/F 31G X 8 MM SQ 5 times a day as directed May, Active Metoprolol Tartrate 50 mg Orally Twice a day 1 tablet with food 12h Jun, 30 day(s) Active Lactulose 10 GM/15ML Orally twice a day 15 ml 12h 31 Jun, 2017 January, 90 days Active NovoLog Flexpen 100 UNIT/ML Subcutaneous 3 times a day ac meals 5 units Active Atorvastatin Calcium 20 TAKE 1 TABLET BY MOUTH DAILY 30 Active Lisinopril 20 MG 20 MG PO DAILY Active Ondansetron 4 MG Orally 3 times a day 1 tablet on the tongue and allow to dissolve 8h 30 days Active RESULTS Name Result Date Reference Range CT Scan : Biopsy Abd/Retroperitoneal PROCEDURES Procedure Date Ordered Result Body Site ALANINE AMINO (ALT) (SGPT) Aug 13, 2017 [facility] [place] VISIT ESTABLISHED PATIENT Aug 13, 2017 INSTRUCTIONS MEDICATIONS ADMINISTERED No Known Medications [...]
--- OUTSIDE RECORDS SUMMARY | 2019-04-25 17:27 | XMS REPORT ---
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 Name Role Phone MYRON LOCO Unavailable PROBLEMS Type Condition ICD9-CM Code IFH31-UP Code Onset Dates Condition Status SNOMED Code Problem Hypertension, benign I10 Active 20596906 Problem Neuropathy, diabetic E11.40 Active 380275491 Problem Hyperlipidemia, mixed E78.2 Active 920010487 Problem Mood disorder F39 Active 63849407 Problem Primary insomnia F51.01 Active 955724748 Problem Diabetes E11.9 Active 308488081 Problem Precordial pain R07.2 Active 44027198 Problem Type 2 diabetes mellitus without complications E11.9 Active 749781699 Problem Depression, unspecified depression type F32.9 Active 81514389 Problem Chronic obstructive pulmonary disease, unspecified COPD type J44.9 Active 65796940 Problem Cirrhosis of liver without ascites, unspecified hepatic cirrhosis type K74.60 Active 36012192 ALLERGIES No Information ENCOUNTERS Encounter Location Date Diagnosis [place] [id number] [place] [address] January, Diabetes E11.9 [place] [address] [place] [id number] [place] [address] January, Diabetes E11.9 [facility] [address] [place] [address] [id number] [place] [address] Dec, Diabetes E11.9 ; Mood disorder F39 ; Hyperlipidemia, mixed E78.2 ; Precordial pain R07.2 and Type 2 diabetes mellitus without complications E11.9 [facility] [address] [place] [id number] [place] [address] Dec, [facility] [address] [place] [address] [id number] [place] [address] Nov, [place] [address] [address] Nov, Cirrhosis of liver without ascites, unspecified hepatic cirrhosis type K74.60 ; Type 2 diabetes mellitus without complications E11.9 ; Precordial pain R07.2 and BMI 40.0-44.9, adult Z68.41 [place] [address] [place] [id number] [place] [address] Nov, Cirrhosis of liver without ascites, unspecified hepatic cirrhosis type K74.60 [place] [address] [place] [id number] [place] [address] Oct, [place] [address] [place] [id number] [place] [address] Oct, Cirrhosis of liver without ascites, unspecified hepatic cirrhosis type K74.60 ; Chronic obstructive pulmonary disease, unspecified COPD type J44.9 and Influenza-like illness R69 [place] [address] [place] [id number] [place] [address] Oct, [place] [address] [place] [id number] [place] [address] Oct, [place] [address] [place] [id number] [place] [address] Oct, Cirrhosis of liver without ascites, unspecified hepatic cirrhosis type K74.60 [place] [address], [place] [address] Sep, [place] [address] [place] [id number] [place] [address] Sep, Chronic obstructive pulmonary disease, unspecified COPD type J44.9 [facility] [address] [place] [id number] [place] [address] Sep, Cirrhosis of liver without ascites, unspecified hepatic cirrhosis type K74.60 and Chronic obstructive pulmonary disease, unspecified COPD type J44.9 [facility] [address] [place] [id number] [place] [address] Aug, [facility] [address], [place] [address] Aug, Cirrhosis of liver without ascites, unspecified hepatic cirrhosis type K74.60 [facility] [address] [address] Aug, [facility] [address] [place] [address] [id number] [place] [address] Aug, [facility] [address], [place] [address] Jul, [facility] [address] [place] [id number] [place] [address] Jul, Diabetes E11.9 and Viral gastroenteritis A08.4 [facility] [address], [place] [address] Jul, Cirrhosis of liver without ascites, unspecified hepatic cirrhosis type K74.60 and Chronic obstructive pulmonary disease, unspecified COPD type J44.9 [facility] [address], [place] [address] Jul, [facility] [address], [place] [address] Jul, Cirrhosis of liver without ascites, unspecified hepatic cirrhosis type K74.60 [facility] [address], [place] [address] Jul, [facility] [address], [place] [address] Jul, [facility] [address], [place] [address] Jun, Cirrhosis of liver without ascites, unspecified hepatic cirrhosis type K74.60 and Viral gastroenteritis A08.4 [facility] [address], [place] [address] Jun, Nausea and vomiting, intractability of vomiting not specified, unspecified vomiting type R11.2 ; Acute nonintractable headache, unspecified headache type R51 and History of encephalopathy Z86.69 [facility] [address] [address] Jun, [facility] [address] [place] [address] [id number] [place] [address] Jun, Neuropathy, diabetic E11.40 and Hypertension, benign I10 [facility] [address] [address] Jun, [facility] [address] [address] Jun, [facility] [id number] Jun, [facility] [address] [address] Jun, [facility] [address] [address] Jun, [facility] [address] [place] [id number] [place] [address] Jun, Viral gastroenteritis A08.4 and Diabetes E11.9 [facility] [address] [place] [id number] [place] [address] May, Lumbago with sciatica, left side M54.42 [facility] [address] [address] May, Lumbago with sciatica, left side M54.42 [facility] [address] [address] May, [facility] [address] [address] May, [facility] [address] [address] Apr, Lumbago with sciatica, left side M54.42 ; Neuropathy, diabetic E11.40 and Mood disorder F39 [facility] [address], [place] [address] Apr, [facility] [address], [place] [address] Apr, [facility] [address] [place] [address] Mar, Other chronic pain G89.29 and Type 2 diabetes mellitus without complications E11.9 [facility] [address], [place] [address] Mar, Other chronic pain G89.29 [facility] [address] [place] [address] Feb, Other chronic pain G89.29 [facility] [address] [place] [id number] [place] [address] January, Shoulder pain, left M25.512 and Other chronic pain G89.29 [facility] [address], [place] [address] January, [facility] [address] [place] [address] January, Drug-induced erectile dysfunction N52.2 [facility] [address], [place] [address] January, Diabetes E11.9 [facility] [address], [place] [address] January, Diabetes E11.9 ; Chronic pain disorder G89.4 ; Lumbago with sciatica, left side M54.42 and Other acute postprocedural pain G89.18 [facility] [address], [place] [address] Dec, Drug-induced erectile dysfunction N52.2 [facility] [address] [place] [id number] [place] [address] Nov, Drug-induced erectile dysfunction N52.2 [facility] [address], [place] [address] Nov, Drug-induced erectile dysfunction N52.2 [facility] [address] [place] [address] 03 Oct, 2016 Diabetes E11.9 [facility] [address] [place] [id number] [place] [address] Oct, Diabetes E11.9 ; Neuropathy, diabetic E11.40 and Drug-induced erectile dysfunction N52.2 [facility] [address] [place] [id number] [place] [address] Sep, [facility] [address] [place] [address] Aug, Diabetes type 2, controlled E11.9 [facility] [address] [place] [id number] [place] [address] Aug, Diabetic mononeuropathy associated with type 2 diabetes mellitus E11.41 [facility] [address] [place] [id number] [place] [address] Jul, [facility] [address] [place] [address] Jul, Primary insomnia F51.01 [facility] [address] [place] [address] Jun, [facility] [address] [place] [id number] [place] [address] Jun, Diabetes E11.9 ; Primary insomnia F51.01 and Depression, unspecified depression type F32.9 [facility] [address], [place] [address] Jun, [facility] [address] [place] [address] Jun, [facility] [address] [place] [address] [id number] [address] May, [facility] [address] [place] [address] May, Mood disorder F39 [facility] [address], [place] [address] Apr, [facility] [address] [place] [id number] [place] [address] Mar, Acute cystitis without hematuria N30.00 [facility] [address] [place] [address] Feb, Diabetes E11.9 [facility] [address] [place] [id number] [place] [address] January, [facility] [address] [place] [id number] [place] [address] January, [facility] [address] [place] [id number] [place] [address] January, Acute cystitis without hematuria N30.00 ; 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 ; Fatigue, unspecified type R53.83 and Weight loss, abnormal R63.4 [facility] [address], [place] [address] January, [facility] [address], [place] [address] Dec, [facility] [address] [place] [id number], [place] [address] Nov, [facility] [address] [place] [id number] [place] [address] Nov, Neuropathy, diabetic E11.40 [facility] [address], [place] [address] Oct, Neuropathy, diabetic E11.40 [facility] [address] [place] [address] Oct, [place] [address] [place] [id number] [place] [address] Oct, [place] [address] [address] Oct, [place] [address] [place] [id number] [place] [address] Aug, [place] [address] [address] Aug, Type 2 diabetes mellitus with foot ulcer E11.621 ; Nausea R11.0 ; Other complications following infusion, transfusion and therapeutic injection, initial encounter T80.89XA ; Hyperlipidemia, mixed E78.2 and Nail ingrowing L60.0 [place] [id number] [place] [address] Jul, [address] [address] Jul, Diabetes E11.9 [place] [id number] [place] [address] Jul, Type 2 diabetes mellitus with foot ulcer E11.621 and Non-pressure chronic ulcer of other part of left foot with unspecified severity L97.529 [place] [id number] [place] [address] Jun, Diabetes E11.9 ; Shoulder pain, left M25.512 ; Abdominal pain, lower R10.30 ; Hepatitis C, chronic B18.2 and Diabetes mellitus without mention of complication, type II or unspecified type, not stated as uncontrolled 250.[address] [address] Jun, Cellulitis, abdominal wall L03.311 and Nocturnal hypoxemia G47.34 [place] [id number] [place] [address] Jun, Diabetes mellitus without mention of complication, type II or unspecified type, not stated as uncontrolled 250.00 [facility] [address] [place] [id number] [address] May, Diabetes mellitus without mention of complication, type II or unspecified type, not stated as uncontrolled 250.00 [facility] [address], [place] [address] May, Abdominal pain 789.00 [facility] [address] [place] [address] May, [facility] [address], [place] [address] May, [facility] [address] [place] [address] May, Diabetes mellitus without mention of complication, type II or unspecified type, not stated as uncontrolled 250.00 [facility] [address], [place] [address] Apr, [facility] [address], [place] [address] Mar, [facility] [address] [place] [address] Mar, Diabetes mellitus without mention of complication, type II or unspecified type, not stated as uncontrolled 250.00 [facility] [address], [place] [address] Feb, Diabetes mellitus without mention of complication, type II or unspecified type, not stated as uncontrolled 250.00 and Chronic pain 338.29 [facility] [address] [place] [id number] [address] Feb, [facility] [address] [place] [address] January, Diabetes mellitus without mention of complication, type II or unspecified type, not stated as uncontrolled 250.00 and Chronic pain 338.29 [facility] [address], [place] [address] January, [facility] [place] [facility] [address] [id number] [place] [address] Dec, [facility] [place] [facility] [address] [id number] [place] [address] Dec, [facility] [place] [facility] [address] [id number] [place] [address] Oct, 2014 [facility] [place] [facility] [address] [id number] [place] [address] 24 Oct, 2014 [facility] [place] [facility] [address] [id number] [place] [address] 16 Oct, 2014 [facility] [place] [facility] [address] [id number] [place] [address] 16 Oct, 2014 [facility] [place] [facility] [address] [id number] [place] [address] 10 Oct, 2014 [facility] [place] [facility] [address] [facility] [id number] [place] [address] 10 Oct, 2014 [facility] [place] [facility] [address] [facility] [id number] [place] [address] Oct, 2014 [facility] [place] [facility] [address] [facility] [id number] [place] [address] Oct, 2014 [facility] [place] [facility] [address] [facility] [id number] [place] [address] Oct, 2014 [facility] [place] [facility] [address] [facility] [id number] [place] [address] Oct, 2014 [facility] [place] [facility] [address] [id number] [place] [address] Oct, 2014 [facility] [place] [facility] [address] [facility] [id number] [place] [address] Oct, 2014 [facility] [place] [facility] [address] [facility] [id number] [place] [address] Sep, [facility] [place] [facility] [address] [id number] [place] [address] Sep, [facility] [place] [facility] [address] [id number] [place] [address] Aug, [facility] [place] [facility] [address] [id number] [place] [address] Aug, [facility] [place] [facility] [address] [id number] [place] [address] Aug, [facility] [place] [facility] [address] [id number] [place] [address] Aug, [facility] [place] [facility] [address] [id number] [place] [address] Aug, [facility] [place] [facility] [address] [id number] [place] [address] Aug, [facility] [place] [facility] [address] [id number] [place] [address] Aug, [facility] [place] [facility] [address] [id number] [place] [address] Aug, [facility] [place] [facility] [address] [id number] [place] [address] Aug, [facility] [place] [facility] [address] [id number] [place] [address] Aug, [facility] [place] [facility] [address] [id number] [address] Jul, [facility] [place] [facility] [address] [id number] [place] [address] Jul, [facility] [place] [facility] [address] [id number] [place] [address] Jun, [facility] [place] [facility] [address] [id number] [place] [address] Jun, [facility] [place] [facility] [address] [id number] [place] [address] 15 Jun, 2013 [facility] [place] [facility] [address] [id number] [place] [address] 15 Jun, 2013 [facility] [place] [facility] [address] [id number] [place] [address] 14 Jun, 2013 [facility] [place] [facility] [address] [id number] [place] [address] 03 Jun, 2013 [facility] [place] [facility] [address] [id number] [place] [address] 03 Jun, 2013 [facility] [place] [facility] [address] [id number] [place] [address] 30 Sep, 2013 [facility] [place] [facility] [address] [id number] [place] [address] 30 Sep, 2013 [facility] [place] [facility] [address] [id number] [place] [address] 30 Sep, 2013 [facility] [place] [facility] [address] [id number] [place] [address] 30 Sep, 2013 [facility] [place] [facility] [address] [id number] [place] [address] 26 Sep, 2013 [facility] [place] [facility] [address] [id number] [place] [address] 26 Sep, 2013 [facility] [place] [facility] [address] [id number] [place] [address] 26 Sep, 2013 [facility] [place] [facility] [address] [id number] [place] [address] 26 Sep, 2013 [facility] [place] [facility] [address] [id number] [place] [address] 24 Sep, 2013 [facility] [place] [facility] [address] [id number] [place] [address] 02 Sep, 2013 [facility] [place] [facility] [address] [id number] [place] [address] 02 Sep, 2013 [facility] [place] [facility] [address] [id number] [place] [address] May, [facility] [place] [facility] [address] [id number] [place] [address] May, [facility] [place] [facility] [address] [id number] [place] [address] Mar, [facility] [place] [facility] [address] [id number] [place] [address] Mar, [facility] [place] [facility] [address] [id number] [place] [address] Mar, [facility] [place] [facility] [address] [id number] [place] [address] Mar, [facility] [place] [facility] [address] [id number] [place] [address] Mar, [facility] [place] [facility] [address] [id number] [place] [address] Mar, [facility] [place] [facility] [address] [id number] [place] [address] Feb, [facility] [place] [facility] [address] [id number] [place] [address] Feb, [facility] [place] [facility] [address] [id number] [place] [address] Feb, [facility] [place] [facility] [address] [id number] [place] [address] Feb, [facility] [place] [facility] [address] [id number] [place] [address] Feb, [facility] [place] [facility] [address] [id number] [place] [address] Feb, [facility] [place] [facility] [address] [id number] [place] [address] Feb, [facility] [place] [facility] [address] [id number] [place] [address] Feb, [facility] [place] [facility] [address] [id number] [place] [address] Feb, [facility] [place] [facility] [address] [id number] [place] [address] January, [facility] [place] [facility] [address] [id number] [place] [address] January, [facility] [place] [facility] [address] [id number] [place] [address] Dec, [facility] [place] [facility] [address] [id number] [place] [address] Dec, [facility] [place] [facility] [address] [id number] [place] [address] Dec, [facility] [place] [facility] [address] [id number] [place] [address] Dec, [facility] [place] [facility] [address] [id number] [place] [address] Nov, [facility] [place] [facility] [address] [id number] [place] [address] Nov, [facility] [place] [facility] [address] [id number] [place] [address] Nov, [facility] [place] [facility] [address] [id number] [place] [address] Nov, [facility] [place] [facility] [address] [id number] [place] [address] Nov, [facility] [place] [facility] [address] [id number] [place] [address] Nov, [facility] [place] [facility] [address] [id number] [place] [address] Nov, [facility] [place] [facility] [address] [id number] [place] [address] Nov, [facility] [place] [facility] [address] [id number] [place] [address] Nov, [facility] [address] [id number] [place] [address] Nov, [facility] [place] [facility] [address] [id number] [place] [address] Oct, [facility] [place] [facility] [address] [id number] [place] [address] Oct, [facility] [place] [facility] [address] [id number] [place] [address] Sep, [facility] [place] [facility] [address] [id number] [place] [address] Sep, [facility] [place] [facility] [address] [id number] [place] [address] Sep, [facility] [place] [facility] [address] [id number] [place] [address] Aug, [facility] [address] [id number] [place] [address] Aug, [facility] [place] [facility] [address] [id number] [place] [address] Aug, [facility] [address] [id number] [place] [address] Aug, [facility] [place] [facility] [address] [id number] [place] [address] Jul, [facility] [place] [facility] [address] [id number] [place] [address] Jul, [facility] [place] [facility] [address] [id number] [place] [address] Jul, [facility] [place] [facility] [address] [id number] [place] [address] Jul, [facility] [place] [facility] [address] [id number] [place] [address] Jun, [facility] [place] [facility] [address] [id number] [place] [address] Jun, [facility] [place] [facility] [address] [id number] [place] [address] Jun, [facility] [place] [facility] [address] [id number] [place] [address] Jun, [facility] [place] [facility] [address] [id number] [place] [address] Jun, [facility] [place] [facility] [address] [id number] [place] [address] Jun, [facility] [place] [facility] [address] [id number] [place] [address] Jun, [facility] [place] [facility] [address] [id number] [place] [address] Jun, [facility] [place] [facility] [address] [id number], [place] [address] May, [facility] [place] [facility] [address] [id number] [place] [address] Apr, [facility] [place] [facility] [address] [id number], [place] [address] Mar, [facility] [place] [facility] [address] [id number] [address] Mar, [facility] [place] [facility] [address] [id number], [place] [address] Feb, [facility] [place] [facility] [address] [id number] [place] [address] Feb, [facility] [place] [facility] [address] [id number], [place] [address] Feb, [facility] [place] [facility] [address] [id number], [place] [address] 24 Dec, 2012 [facility] [place] [facility] [address] [id number], [place] [address] Dec, [facility] [address] [id number] [place] [address] Dec, [facility] [address] [id number] [place] [address] Nov, [facility] [address] [id number] [place] [address] Oct, [facility] [place] [facility] [address] [id number] [place] [address] Oct, [facility] [address] [id number] [place] [address] Oct, [facility] [address] [id number] [place] [address] 08 Oct, 2012 [facility] [address] [id number] [place] [address] 14 Sep, 2012 [facility] [address] [id number] [place] [address] Sep, [facility] [address] [id number] [place] [address] 31 Aug, 2012 [facility] [address] [facility] [id number] [place] [address] 31 Aug, 2012 [facility] [address] [id number] [place] [address] Aug, [facility] [place] [facility] [address] [id number] [place] [address] Aug, [facility] [place] [facility] [address] [id number] [place] [address] Aug, [facility] [place] [facility] [address] [id number] [place] [address] Aug, [facility] [address] [id number] [place] [address] 18 Aug, 2012 [facility] [place] [facility] [address] [id number] [place] [address] 18 Aug, 2012 [facility] [place] [facility] [address] [id number] [place] [address] 14 Aug, 2012 [facility] [place] [facility] [address] [id number] [place] [address] 14 Aug, 2012 [facility] [place] [facility] [address] [id number] [place] [address] 10 Aug, 2012 [facility] [place] [facility] [address] [id number] [place] [address] 10 Aug, 2012 [facility] [place] [facility] [address] [id number] [place] [address] 30 Jul, 2012 [facility] [place] [facility] [address] [id number] [place] [address] 30 Jul, 2012 [facility] [place] [facility] [address] [id number] [place] [address] Jul, [facility] [place] [facility] [address] [id number] [place] [address] Jul, [facility] [place] [facility] [address] [id number] [place] [address] Jul, [facility] [place] [facility] [address] [id number] [place] [address] Jul, [facility] [place] [facility] [address] [id number] [place] [address] Jul, [facility] [place] [facility] [address] [id number] [place] [address] Jul, [facility] [place] [facility] [address] [id number] [place] [address] 16 Jul, 2012 [facility] [place] [facility] [address] [id number] [place] [address] 16 Jul, 2012 [facility] [place] [facility] [address] [id number] [place] [address] Jun, [facility] [place] [facility] [address] [id number] [place] [address] Jun, [facility] [place] [facility] [address] [id number] [place] [address] Jun, [facility] [place] [facility] [address] [id number] [place] [address] Jun, [facility] [place] [facility] [address] [id number] [place] [address] Apr, [facility] [place] [facility] [address] [id number] [place] [address] Mar, [facility] [place] [facility] [address] [id number] [place] [address] Mar, [facility] [place] [facility] [address] [id number] [place] [address] Mar, [facility] [place] [facility] [address] [id number] [place] [address] Mar, [facility] [place] [facility] [address] [id number] [place] [address] Mar, [facility] [place] [facility] [address] [id number] [place] [address] Feb, [facility] [place] [facility] [address] [id number] [place] [address] Feb, [facility] [place] [facility] [address] [id number] [place] [address] January, [facility] [place] [facility] [address] [id number] [place] [address] January, [facility] [place] [facility] [address] [id number] [place] [address] Nov, [facility] [place] [facility] [address] [id number] [place] [address] Nov, [facility] [place] [facility] [address] [id number] [place] [address] 16 Nov, 2011 [facility] [place] [facility] [address] [id number] [place] [address] Nov, [facility] [place] [facility] [address] [id number] [place] [address] 08 Nov, 2011 [facility] [place] [facility] [address] [id number] [place] [address] Oct, [facility] [place] [facility] [address] [id number] [place] [address] Jul, [facility] [place] [facility] [address] [id number] [place] [address] Jul, [facility] [place] [facility] [address] [id number] [place] [address] Jul, [facility] [place] [facility] [address] [id number] [place] [address] Jun, [facility] [place] [facility] [address] [id number] [place] [address] Jun, [facility] [place] [facility] [address] [id number] [place] [address] Dec, [facility] [place] [facility] [address] [id number] [place] [address] Aug, [facility] [place] [facility] [address] [id number] [place] [address] Aug, [facility] [place] [facility] [address] [id number] [place] [address] Jul, [facility] [place] [facility] [address] [id number] [place] [address] Jul, [facility] [place] [facility] [address] [id number] [place] [address] Jul, [facility] [place] [facility] [address] [id number] [place] [address] Jun, [facility] [address] [facility] [id number], [place] [address] Jun, [facility] [address] [id number], [place] [address] Jun, [facility] [address] [id number], [place] [address] May, [facility] [address] [id number], [place] [address] Feb, [facility] [address] [facility] [id number], [place] [address] January, IMMUNIZATIONS No Known Immunizations SOCIAL HISTORY Never Assessed REASON FOR VISIT Eye Exam PLAN OF CARE VITAL SIGNS MEDICATIONS Unknown [...]
--- OUTSIDE RECORDS SUMMARY | 2019-04-25 17:28 | XMS REPORT ---
Author Author RONALD KELLEY Organization [facility] Address [address] 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 Name Role Phone RONALD KELLEY Unavailable PROBLEMS Type Condition ICD9-CM Code QPF39-TT Code Onset Dates Condition Status SNOMED Code Problem Hypertension, benign I10 Active 26903759 Problem Neuropathy, diabetic E11.40 Active 262111900 Problem Hyperlipidemia, mixed E78.2 Active 322663517 Problem Mood disorder F39 Active 39249963 Problem Primary insomnia F51.01 Active 293584444 Problem Diabetes E11.9 Active 766090787 Problem Precordial pain R07.2 Active 07067539 Problem Type 2 diabetes mellitus without complications E11.9 Active 308895924 Problem Depression, unspecified depression type F32.9 Active 59506630 Problem Chronic obstructive pulmonary disease, unspecified COPD type J44.9 Active 16240217 Problem Cirrhosis of liver without ascites, unspecified hepatic cirrhosis type K74.60 Active 73558519 ALLERGIES No Information ENCOUNTERS Encounter Location Date Diagnosis [place] [id number] [place] [address] January, [place] [id number] [place] [address] January, Diabetes E11.9 [facility] [id number] [place] [address] January, Diabetes E11.9 [facility] [id number] [place] [address] Dec, Diabetes E11.9 ; Mood disorder F39 ; Hyperlipidemia, mixed E78.2 ; Precordial pain R07.2 ; Type 2 diabetes mellitus with hyperglycemia E11.65 and penitentiary current use of insulin Z79.4 [facility] [id number] [place] [address] Dec, [facility] [address], [place] [address] Nov, [facility] [address], [place] [address] Nov, Cirrhosis of liver without ascites, unspecified hepatic cirrhosis type K74.60 ; Type 2 diabetes mellitus without complications E11.9 ; Precordial pain R07.2 and BMI 40.0-44.9, adult Z68.41 [facility] [address], [place] [address] Nov, Cirrhosis of liver without ascites, unspecified hepatic cirrhosis type K74.60 [place] [address] [address] Oct, [place] [id number] [address] Oct, Cirrhosis of liver without ascites, unspecified hepatic cirrhosis type K74.60 ; Chronic obstructive pulmonary disease, unspecified COPD type J44.9 and Influenza-like illness R69 [facility] [address], [place] [address] Oct, [facility] [address], [place] [address] Oct, [facility] [address], [place] [address] Oct, Cirrhosis of liver without ascites, unspecified hepatic cirrhosis type K74.60 [facility] [address], [place] [address] Sep, [facility] [address], [place] [address] Sep, Chronic obstructive pulmonary disease, unspecified COPD type J44.9 [facility] [address], [place] [address] Sep, Cirrhosis of liver without ascites, unspecified hepatic cirrhosis type K74.60 and Chronic obstructive pulmonary disease, unspecified COPD type J44.9 [facility] [address] [place] [address] Aug, [facility] [address] [place] [address] Aug, Cirrhosis of liver without ascites, unspecified hepatic cirrhosis type K74.60 [facility] [id number] [place] [address] Aug, [facility] [id number] [place] [address] Aug, [facility] [id number] [place] [address] Jul, [facility] [id number] [place] [address] Jul, Diabetes E11.9 and Viral gastroenteritis A08.4 [facility] [address] [place] [address] Jul, Cirrhosis of liver without ascites, unspecified hepatic cirrhosis type K74.60 and Chronic obstructive pulmonary disease, unspecified COPD type J44.9 [facility] [address], [place] [address] Jul, [facility] [address] [place] [address] Jul, Cirrhosis of liver without ascites, unspecified hepatic cirrhosis type K74.60 [facility] [address], [place] [address] Jul, [facility] [id number] [place] [address] Jul, [facility] [address], [place] [address] Jun, Cirrhosis of liver without ascites, unspecified hepatic cirrhosis type K74.60 and Viral gastroenteritis A08.4 [facility] [id number] [place] [address] Jun, Nausea and vomiting, intractability of vomiting not specified, unspecified vomiting type R11.2 ; Acute nonintractable headache, unspecified headache type R51 and History of encephalopathy Z86.69 [facility] [id number] [place] [address] Jun, [facility] [address] [address] Jun, Neuropathy, diabetic E11.40 and Hypertension, benign I10 [facility] [address] [address] Jun, [facility] [address] [address] Jun, [facility] [address] [id number] Jun, [facility] [address] [address] Jun, [facility] [address] [address] Jun, [facility] [address] [address] Jun, Viral gastroenteritis A08.4 and Diabetes E11.9 [facility] [address] [address] May, Lumbago with sciatica, left side M54.42 [facility] [address] [address] 14 May, 2017 Lumbago with sciatica, left side M54.42 [facility] [id number] [place] [address] May, [facility] [address] [address] May, [facility] [address], [place] [address] Apr, Lumbago with sciatica, left side M54.42 ; Neuropathy, diabetic E11.40 and Mood disorder F39 [facility] [address], [place] [address] Apr, [facility] [id number] [place] [address] Apr, [facility] [id number] [place] [address] Mar, Other chronic pain G89.29 and Type 2 diabetes mellitus without complications E11.9 [facility] [id number] [place] [address] Mar, Other chronic pain G89.29 [facility] [id number] [place] [address] Feb, Other chronic pain G89.29 [facility] [address] [place] [address] January, Shoulder pain, left M25.512 and Other chronic pain G89.29 [facility] [address], [place] [address] January, [facility] [address], [place] [address] January, Drug-induced erectile dysfunction N52.2 [facility] [address], [place] [address] January, Diabetes E11.9 [facility] [id number] [place] [address] January, Diabetes E11.9 ; Chronic pain disorder G89.4 ; Lumbago with sciatica, left side M54.42 and Other acute postprocedural pain G89.18 [facility] [id number] [place] [address] Dec, Drug-induced erectile dysfunction N52.2 [facility] [address] [place] [address] Nov, Drug-induced erectile dysfunction N52.2 [facility] [address], [place] [address] Nov, Drug-induced erectile dysfunction N52.2 [facility] [id number] [place] [address] Oct, Diabetes E11.9 [facility] [id number] [place] [address] Oct, Diabetes E11.9 ; Neuropathy, diabetic E11.40 and Drug-induced erectile dysfunction N52.2 [facility] [id number] [place] [address] Sep, [facility] [id number] [place] [address] Aug, Diabetes type 2, controlled E11.9 [facility] [id number] [place] [address] Aug, Diabetic mononeuropathy associated with type 2 diabetes mellitus E11.41 [facility] [id number] [place] [address] Jul, [facility] [id number] [place] [address] Jul, Primary insomnia F51.01 [facility] [address] [place] [address] Jun, [facility] [id number] [place] [address] Jun, Diabetes E11.9 ; Primary insomnia F51.01 and Depression, unspecified depression type F32.9 [facility] [id number] [place] [address] Jun, [facility] [address], [place] [address] Jun, [facility] [address] [address] May, [facility] [address] [place] [address] May, Mood disorder F39 [facility] [id number] [place] [address] Apr, [facility] [id number] [place] [address] Mar, Acute cystitis without hematuria N30.00 [facility] [id number] [place] [address] Feb, Diabetes E11.9 [facility] [id number] [place] [address] January, [facility] [id number] [place] [address] January, [facility] [id number] [place] [address] January, Acute cystitis without hematuria N30.00 ; 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 ; Fatigue, unspecified type R53.83 and Weight loss, abnormal R63.4 [facility] [id number] [address] January, [facility] [address] [place] [address] Dec, [facility] [id number] [place] [address] Nov, [facility] [address], [place] [address] Nov, Neuropathy, diabetic E11.40 [facility] [id number] [place] [address] Oct, Neuropathy, diabetic E11.40 [place] [id number] [place] [address] Oct, [place] [id number] [place] [address] Oct, [place] [address] [address] Oct, [place] [address] [address] Aug, [place] [address] [address] Aug, Type 2 diabetes mellitus with foot ulcer E11.621 ; Nausea R11.0 ; Other complications following infusion, transfusion and therapeutic injection, initial encounter T80.89XA ; Hyperlipidemia, mixed E78.2 and Nail ingrowing L60.0 [place] [id number] [place] [address] Jul, [place] [id number] [place] [address] Jul, Diabetes E11.9 [place] [id number] [place] [address] Jul, Type 2 diabetes mellitus with foot ulcer E11.621 and Non-pressure chronic ulcer of other part of left foot with unspecified severity L97.529 [place] [id number] [place] [address] Jun, Diabetes E11.9 ; Shoulder pain, left M25.512 ; Abdominal pain, lower R10.30 ; Hepatitis C, chronic B18.2 and Diabetes mellitus without mention of complication, type II or unspecified type, not stated as uncontrolled 250.00 [place] [id number] [place] [address] 07 Jun, 2015 Cellulitis, abdominal wall L03.311 and Nocturnal hypoxemia G47.34 [facility] [address], [place] [address] Jun, Diabetes mellitus without mention of complication, type II or unspecified type, not stated as uncontrolled 250.00 [facility] [address], [place] [address] May, Diabetes mellitus without mention of complication, type II or unspecified type, not stated as uncontrolled 250.00 [facility] [id number] [place] [address] May, Abdominal pain 789.00 [facility] [id number] [place] [address] May, [facility] [id number] [address] May, [facility] [id number] [place] [address] May, Diabetes mellitus without mention of complication, type II or unspecified type, not stated as uncontrolled 250.00 [facility] [address], [place] [address] Apr, [facility] [address] [place] [address] Mar, [facility] [address], [place] [address] Mar, Diabetes mellitus without mention of complication, type II or unspecified type, not stated as uncontrolled 250.00 [facility] [id number] [place] [address] Feb, Diabetes mellitus without mention of complication, type II or unspecified type, not stated as uncontrolled 250.00 and Chronic pain 338.29 [facility] [address], [place] [address] Feb, [facility] [address] [place] [address] January, Diabetes mellitus without mention of complication, type II or unspecified type, not stated as uncontrolled 250.00 and Chronic pain 338.29 [facility] [address], [place] [address] January, [facility] [address], [place] [address] Dec, [facility] [id number] [place] [address] Dec, [facility] [address], [place] [address] Oct, [facility] [id number] [place] [address] Oct, [facility] [id number] [place] [address] Oct, [facility] [address], [place] [address] Oct, [facility] [address], [place] [address] Oct, [facility] [address], [place] [address] Oct, [facility] [address], [place] [address] Oct, [facility] [address], [place] [address] Oct, [facility] [address], [place] [address] Oct, [facility] [address], [place] [address] Oct, [facility] [address], [place] [address] Oct, [facility] [address] [place] [address] Oct, [facility] [place] [facility] [address] [id number] [place] [address] Sep, [facility] [place] [facility] [address] [id number] [place] [address] Sep, [facility] [place] [facility] [address] [id number] [place] [address] Aug, [facility] [place] [facility] [address] [id number] [place] [address] Aug, [facility] [place] [facility] [address] [id number] [place] [address] Aug, [facility] [place] [facility] [address] [id number] [place] [address] Aug, [facility] [place] [facility] [address] [id number] [place] [address] Aug, [facility] [place] [facility] [address] [id number] [place] [address] Aug, [facility] [place] [facility] [address] [id number] [place] [address] Aug, [facility] [place] [facility] [address] [facility] [id number] [place] [address] Aug, [facility] [place] [facility] [address] [id number] [place] [address] Aug, [facility] [place] [facility] [address] [id number] [place] [address] Aug, [facility] [place] [facility] [address] [id number] [place] [address] Jul, [facility] [place] [facility] [address] [id number] [place] [address] Jul, [facility] [place] [facility] [address] [id number] [place] [address] Jun, [facility] [place] [facility] [address] [id number] [place] [address] 29 Jun, 2014 [facility] [place] [facility] [address] [id number] [place] [address] Jun, [facility] [place] [facility] [address] [id number] [place] [address] 15 Jun, 2014 [facility] [place] [facility] [address] [id number] [place] [address] 14 Jun, 2014 [facility] [place] [facility] [address] [id number] [place] [address] Jun, [facility] [place] [facility] [address] [id number] [place] [address] Jun, [facility] [place] [facility] [address] [id number] [place] [address] 30 May, 2013 [facility] [place] [facility] [address] [id number] [place] [address] 30 May, 2013 [facility] [place] [facility] [address] [id number] [place] [address] 30 May, 2013 [facility] [place] [facility] [address] [id number] [place] [address] 30 May, 2013 [facility] [place] [facility] [address] [id number] [place] [address] 26 May, 2013 [facility] [place] [facility] [address] [id number] [place] [address] 26 Sep, 2013 [facility] [place] [facility] [address] [id number] [place] [address] 26 May, 2013 [facility] [place] [facility] [address] [id number] [place] [address] 26 May, 2013 [facility] [place] [facility] [address] [id number] [place] [address] 24 May, 2013 [facility] [place] [facility] [address] [id number] [place] [address] May, [facility] [place] [facility] [address] [id number] [place] [address] May, 2013 [facility] [place] [facility] [address] [id number] [place] [address] May, [facility] [place] [facility] [address] [id number] [place] [address] May, [facility] [place] [facility] [address] [id number] [place] [address] Mar, [facility] [place] [facility] [address] [id number] [place] [address] Mar, [facility] [place] [facility] [address] [id number] [place] [address] Mar, [facility] [place] [facility] [address] [id number] [place] [address] Mar, [facility] [place] [facility] [address] [id number] [place] [address] Mar, [facility] [place] [facility] [address] [id number] [place] [address] Mar, [facility] [place] [facility] [address] [id number] [place] [address] Feb, [facility] [place] [facility] [address] [id number] [place] [address] Feb, [facility] [place] [facility] [address] [id number] [place] [address] Feb, [facility] [place] [facility] [address] [id number] [place] [address] Feb, [facility] [place] [facility] [address] [id number] [place] [address] Feb, [facility] [place] [facility] [address] [id number] [place] [address] Feb, [facility] [place] [facility] [address] [id number] [place] [address] Feb, [facility] [address] [id number] [place] [address] Feb, [facility] [place] [facility] [address] [id number] [place] [address] Feb, [facility] [address] [id number] [place] [address] January, [facility] [place] [facility] [address] [id number] [place] [address] January, [facility] [place] [facility] [address] [id number] [place] [address] Dec, [facility] [place] [facility] [address] [id number] [place] [address] Dec, [facility] [place] [facility] [address] [id number] [place] [address] Dec, [facility] [address] [id number] [place] [address] Dec, [facility] [place] [facility] [address] [id number] [place] [address] Nov, [facility] [address] [id number] [place] [address] Nov, [facility] [place] [facility] [address] [id number] [place] [address] Nov, [facility] [place] [facility] [address] [id number] [place] [address] Nov, [facility] [place] [facility] [address] [id number] [place] [address] Nov, [facility] [place] [facility] [address] [id number] [place] [address] Nov, [facility] [place] [facility] [address] [id number] [place] [address] Nov, [facility] [address] [id number] [place] [address] Nov, [facility] [place] [facility] [address] [id number] [place] [address] Nov, [facility] [place] [facility] [address] [id number] [place] [address] Nov, [facility] [place] [facility] [address] [id number] [place] [address] Oct, [facility] [place] [facility] [address] [id number] [place] [address] Oct, [facility] [place] [facility] [address] [id number] [place] [address] Sep, [facility] [place] [facility] [address] [id number] [place] [address] Sep, [facility] [place] [facility] [address] [id number] [place] [address] Sep, [facility] [place] [facility] [address] [id number] [place] [address] Aug, [facility] [place] [facility] [address] [id number] [place] [address] Aug, [facility] [place] [facility] [address] [id number] [place] [address] Aug, [facility] [place] [facility] [address] [id number] [place] [address] Aug, [facility] [place] [facility] [address] [id number] [place] [address] Jul, [facility] [place] [facility] [address] [id number] [place] [address] Jul, [facility] [place] [facility] [address] [id number] [place] [address] Jul, [facility] [place] [facility] [address] [id number] [place] [address] Jul, [facility] [place] [facility] [address] [id number] [place] [address] Jun, [facility] [place] [facility] [address] [id number] [place] [address] Jun, [facility] [place] [facility] [address] [id number] [place] [address] Jun, [facility] [place] [facility] [address] [id number] [place] [address] Jun, [facility] [place] [facility] [address] [id number] [place] [address] Jun, [facility] [place] [facility] [address] [id number] [place] [address] Jun, [facility] [place] [facility] [address] [id number] [place] [address] Jun, [facility] [place] [facility] [address] [id number] [place] [address] Jun, [facility] [place] [facility] [address] [id number] [place] [address] May, [facility] [place] [facility] [address] [id number] [place] [address] Apr, [facility] [place] [facility] [address] [id number] [place] [address] Mar, [facility] [place] [facility] [address] [id number] [place] [address] Mar, [facility] [place] [facility] [address] [id number] [place] [address] Feb, [facility] [place] [facility] [address] [id number] [place] [address] Feb, [facility] [place] [facility] [address] [id number] [place] [address] Feb, [facility] [place] [facility] [address] [id number] [place] [address] 24 Dec, 2012 [facility] [address] [id number] [place] [address] Dec, [facility] [place] [facility] [address] [id number] [place] [address] Dec, [facility] [place] [facility] [address] [id number] [place] [address] Nov, [facility] [place] [facility] [address] [id number] [place] [address] Oct, [facility] [place] [facility] [address] [id number] [place] [address] Oct, [facility] [address] [id number] [place] [address] Oct, [facility] [address] [id number] [place] [address] 08 Oct, 2012 [facility] [place] [facility] [address] [id number] [place] [address] Sep, [facility] [address] [id number] [place] [address] Sep, [facility] [place] [facility] [address] [id number] [place] [address] Aug, [facility] [place] [facility] [address] [id number] [place] [address] Aug, [facility] [place] [facility] [address] [id number] [place] [address] Aug, [facility] [place] [facility] [address] [id number] [place] [address] Aug, [facility] [place] [facility] [address] [id number] [place] [address] Aug, [facility] [place] [facility] [address] [id number], [place] [address] 21 Aug, 2012 [facility] [place] [facility] [address] [id number] [place] [address] 18 Aug, 2012 [facility] [place] [facility] [address] [id number] [place] [address] 18 Aug, 2012 [facility] [place] [facility] [address] [id number] [place] [address] 14 Aug, 2012 [facility] [place] [facility] [address] [id number] [place] [address] 14 Aug, 2012 [facility] [place] [facility] [address] [id number] [place] [address] 10 Aug, 2012 [facility] [place] [facility] [address] [id number] [place] [address] 10 Aug, 2012 [facility] [place] [facility] [address] [id number] [place] [address] 30 Jul, 2012 [facility] [place] [facility] [address] [id number] [place] [address] 30 Jul, 2012 [facility] [place] [facility] [address] [id number] [place] [address] 26 Jul, 2012 [facility] [place] [facility] [address] [id number] [place] [address] 26 Jul, 2012 [facility] [place] [facility] [address] [id number] [place] [address] Jul, [facility] [place] [facility] [address] [id number], [place] [address] 20 Jul, 2012 [facility] [place] [facility] [address] [id number] [place] [address] 19 Jul, 2012 [facility] [place] [facility] [address] [id number] [place] [address] 19 Jul, 2012 [facility] [place] [facility] [address] [facility] [id number] [place] [address] 16 Jul, 2012 [facility] [place] [facility] [address] [id number] [place] [address] Jul, [facility] [place] [facility] [address] [id number] [place] [address] Jun, [facility] [place] [facility] [address] [id number] [place] [address] Jun, [facility] [place] [facility] [address] [id number] [place] [address] Jun, [facility] [place] [facility] [address] [id number] [place] [address] Jun, [facility] [place] [facility] [address] [id number] [place] [address] Apr, [facility] [place] [facility] [address] [id number] [place] [address] Mar, [facility] [place] [facility] [address] [id number] [place] [address] Mar, [facility] [place] [facility] [address] [id number] [place] [address] Mar, [facility] [place] [facility] [address] [id number] [place] [address] Mar, [facility] [place] [facility] [address] [id number] [place] [address] Mar, [facility] [place] [facility] [address] [id number] [place] [address] Feb, [facility] [place] [facility] [address] [id number] [place] [address] Feb, [facility] [place] [facility] [address] [id number] [place] [address] January, [facility] [place] [facility] [address] [id number] [place] [address] January, [facility] [place] [facility] [address] [id number] [place] [address] Nov, [facility] [place] [facility] [address] [id number] [place] [address] Nov, [facility] [place] [facility] [address] [id number] [place] [address] 16 Nov, 2011 [facility] [place] [facility] [address] [id number] [place] [address] Nov, [facility] [place] [facility] [address] [id number] [place] [address] Nov, [facility] [place] [facility] [address] [id number] [place] [address] Oct, [facility] [place] [facility] [address] [id number] [place] [address] Jul, [facility] [place] [facility] [address] [id number] [place] [address] Jul, [facility] [place] [facility] [address] [id number] [place] [address] Jul, [facility] [place] [facility] [address] [id number] [place] [address] Jun, [facility] [place] [facility] [address] [id number] [place] [address] Jun, [facility] [place] [facility] [address] [id number], [place] [address] Dec, [facility] [place] [facility] [address] [id number], [place] [address] Aug, [facility] [place] [facility] [address] [id number] [place] [address] Aug, [facility] [place] [facility] [address] [id number] [place] [address] Jul, [facility] [place] [facility] [address] [id number] [place] [address] Jul, [facility] [place] [facility] [address] [facility] [id number], [place] [address] Jul, [facility] [address] [id number], [place] [address] Jun, [facility] [address] [id number], [place] [address] Jun, [facility] [address] [id number], [place] [address] Jun, [facility] [id number], [place] [address] May, [facility] [id number], [place] [address] Feb, [facility] [address] [id number], [place] [address] January, IMMUNIZATIONS No Known Immunizations SOCIAL HISTORY Never Assessed REASON FOR VISIT DNR Paperwork PLAN OF CARE VITAL SIGNS MEDICATIONS Unknown [...]
--- OUTSIDE RECORDS SUMMARY | 2019-04-25 17:29 | XMS REPORT ---
Author Author RONALD KELLEY Organization [facility] Address [address] [place] [address] Care Team Providers Care Testing Lead Name Role Phone RONALD KELLEY Unavailable PROBLEMS Type Condition ICD9-CM Code BDB79-EE Code Onset Dates Condition Status SNOMED Code Problem Hypertension, benign I10 Active 31484185 Problem Neuropathy, diabetic E11.40 Active 529299186 Problem Hyperlipidemia, mixed E78.2 Active 388202873 Problem Mood disorder F39 Active 05813306 Problem Primary insomnia F51.01 Active 812827503 Problem Diabetes E11.9 Active 283852068 Problem Precordial pain R07.2 Active 11175854 Problem Type 2 diabetes mellitus without complications E11.9 Active 043723488 Problem Depression, unspecified depression type F32.9 Active 06715990 Problem Chronic obstructive pulmonary disease, unspecified COPD type J44.9 Active 88418869 Problem Cirrhosis of liver without ascites, unspecified hepatic cirrhosis type K74.60 Active 62043929 ALLERGIES No Information ENCOUNTERS Encounter Location Date Diagnosis [place] [id number] [place] [address] January, [place] [id number] [place] [address] January, Diabetes E11.9 [facility] [id number] [place] [address] January, Diabetes E11.9 [facility] [id number] [place] [address] Dec, Diabetes E11.9 ; Mood disorder F39 ; Hyperlipidemia, mixed E78.2 ; Precordial pain R07.2 ; Type 2 diabetes mellitus with hyperglycemia E11.65 and long-term current use of insulin Z79.4 [facility] [id number] [place] [address] Dec, [facility] [address], [place] [address] Nov, [facility] [address], [place] [address] Nov, Cirrhosis of liver without ascites, unspecified hepatic cirrhosis type K74.60 ; Type 2 diabetes mellitus without complications E11.9 ; Precordial pain R07.2 and BMI 40.0-44.9, adult Z68.41 [facility] [address], [place] [address] Nov, Cirrhosis of liver without ascites, unspecified hepatic cirrhosis type K74.60 [place] [address], [place] [address] Oct, [place] [address] [address] Oct, Cirrhosis of liver without ascites, unspecified hepatic cirrhosis type K74.60 ; Chronic obstructive pulmonary disease, unspecified COPD type J44.9 and Influenza-like illness R69 [facility] [address], [place] [address] Oct, [facility] [address], [place] [address] Oct, [facility] [address], [place] [address] Oct, Cirrhosis of liver without ascites, unspecified hepatic cirrhosis type K74.60 [facility] [address], [place] [address] Sep, [facility] [address], [place] [address] Sep, Chronic obstructive pulmonary disease, unspecified COPD type J44.9 [facility] [address], [place] [address] Sep, Cirrhosis of liver without ascites, unspecified hepatic cirrhosis type K74.60 and Chronic obstructive pulmonary disease, unspecified COPD type J44.9 [facility] [id number] [place] [address] Aug, [facility] [id number] [place] [address] Aug, Cirrhosis of liver without ascites, unspecified hepatic cirrhosis type K74.60 [facility] [id number] [place] [address] Aug, [facility] [id number] [place] [address] Aug, [facility] [id number] [place] [address] Jul, [facility] [id number] [place] [address] Jul, Diabetes E11.9 and Viral gastroenteritis A08.4 [facility] [id number] [place] [address] Jul, Cirrhosis of liver without ascites, unspecified hepatic cirrhosis type K74.60 and Chronic obstructive pulmonary disease, unspecified COPD type J44.9 [facility] [address], [place] [address] Jul, [facility] [id number] [place] [address] Jul, Cirrhosis of liver without ascites, unspecified hepatic cirrhosis type K74.60 [facility] [address], [place] [address] Jul, [facility] [id number] [place] [address] Jul, [facility] [address], [place] [address] Jun, Cirrhosis of liver without ascites, unspecified hepatic cirrhosis type K74.60 and Viral gastroenteritis A08.4 [facility] [id number] [place] [address] Jun, Nausea and vomiting, intractability of vomiting not specified, unspecified vomiting type R11.2 ; Acute nonintractable headache, unspecified headache type R51 and History of encephalopathy Z86.69 [facility] [id number] [place] [address] Jun, [facility] [address] [address] Jun, Neuropathy, diabetic E11.40 and Hypertension, benign I10 [facility] [address] [address] Jun, [facility] [address] [address] Jun, [facility] [address] [id number] Jun, [facility] [address] [address] Jun, [facility] [address] [address] Jun, [facility] [address] [address] Jun, Viral gastroenteritis A08.4 and Diabetes E11.9 [facility] [address] [address] May, Lumbago with sciatica, left side M54.42 [facility] [address] [address] 14 May, 2017 Lumbago with sciatica, left side M54.42 [facility] [id number] [place] [address] May, [facility] [address] [address] May, [facility] [address], [place] [address] Apr, Lumbago with sciatica, left side M54.42 ; Neuropathy, diabetic E11.40 and Mood disorder F39 [facility] [address], [place] [address] Apr, [facility] [id number] [place] [address] Apr, [facility] [id number] [place] [address] Mar, Other chronic pain G89.29 and Type 2 diabetes mellitus without complications E11.9 [facility] [id number] [place] [address] Mar, Other chronic pain G89.29 [facility] [id number] [place] [address] Feb, Other chronic pain G89.29 [facility] [address] [place] [address] January, Shoulder pain, left M25.512 and Other chronic pain G89.29 [facility] [address], [place] [address] January, [facility] [address], [place] [address] January, Drug-induced erectile dysfunction N52.2 [facility] [address], [place] [address] January, Diabetes E11.9 [facility] [id number] [place] [address] January, Diabetes E11.9 ; Chronic pain disorder G89.4 ; Lumbago with sciatica, left side M54.42 and Other acute postprocedural pain G89.18 [facility] [id number] [place] [address] Dec, Drug-induced erectile dysfunction N52.2 [facility] [id number] [place] [address] Nov, Drug-induced erectile dysfunction N52.2 [facility] [address], [place] [address] Nov, Drug-induced erectile dysfunction N52.2 [facility] [id number] [place] [address] Oct, Diabetes E11.9 [facility] [id number] [place] [address] Oct, Diabetes E11.9 ; Neuropathy, diabetic E11.40 and Drug-induced erectile dysfunction N52.2 [facility] [id number] [place] [address] Sep, [facility] [id number] [place] [address] Aug, Diabetes type 2, controlled E11.9 [facility] [id number] [place] [address] Aug, Diabetic mononeuropathy associated with type 2 diabetes mellitus E11.41 [facility] [id number] [place] [address] Jul, [facility] [id number] [place] [address] Jul, Primary insomnia F51.01 [facility] [address] [place] [address] Jun, [facility] [id number] [place] [address] Jun, Diabetes E11.9 ; Primary insomnia F51.01 and Depression, unspecified depression type F32.9 [facility] [id number] [place] [address] Jun, [facility] [address], [place] [address] Jun, [facility] [address] [place] [address] May, [facility] [address] [place] [address] May, Mood disorder F39 [facility] [id number] [place] [address] Apr, [facility] [id number] [place] [address] Mar, Acute cystitis without hematuria N30.00 [facility] [id number] [place] [address] Feb, Diabetes E11.9 [facility] [id number] [place] [address] January, [facility] [id number] [place] [address] January, [facility] [id number] [place] [address] January, Acute cystitis without hematuria N30.00 ; 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 ; Fatigue, unspecified type R53.83 and Weight loss, abnormal R63.4 [facility] [address] [place] [address] January, [facility] [address] [place] [address] Dec, [facility] [id number] [place] [address] Nov, [facility] [address], [place] [address] Nov, Neuropathy, diabetic E11.40 [facility] [id number] [place] [address] Oct, Neuropathy, diabetic E11.40 [place] [id number] [place] [address] Oct, [place] [id number] [place] [address] Oct, [place] [address] [address] Oct, [place] [address] [address] Aug, [place] [address] [address] Aug, Type 2 diabetes mellitus with foot ulcer E11.621 ; Nausea R11.0 ; Other complications following infusion, transfusion and therapeutic injection, initial encounter T80.89XA ; Hyperlipidemia, mixed E78.2 and Nail ingrowing L60.0 [place] [id number] [place] [address] Jul, [place] [id number] [place] [address] Jul, Diabetes E11.9 [place] [id number] [place] [address] Jul, Type 2 diabetes mellitus with foot ulcer E11.621 and Non-pressure chronic ulcer of other part of left foot with unspecified severity L97.529 [place] [id number] [place] [address] Jun, Diabetes E11.9 ; Shoulder pain, left M25.512 ; Abdominal pain, lower R10.30 ; Hepatitis C, chronic B18.2 and Diabetes mellitus without mention of complication, type II or unspecified type, not stated as uncontrolled 250.00 [place] [id number] [place] [address] 07 Jun, 2015 Cellulitis, abdominal wall L03.311 and Nocturnal hypoxemia G47.34 [facility] [address], [place] [address] Jun, Diabetes mellitus without mention of complication, type II or unspecified type, not stated as uncontrolled 250.00 [facility] [address], [place] [address] May, Diabetes mellitus without mention of complication, type II or unspecified type, not stated as uncontrolled 250.00 [facility] [id number] [place] [address] May, Abdominal pain 789.00 [facility] [id number] [place] [address] May, [facility] [address] [address] May, [facility] [id number] [place] [address] May, Diabetes mellitus without mention of complication, type II or unspecified type, not stated as uncontrolled 250.00 [facility] [address], [place] [address] Apr, [facility] [address] [place] [address] Mar, [facility] [address], [place] [address] Mar, Diabetes mellitus without mention of complication, type II or unspecified type, not stated as uncontrolled 250.00 [facility] [id number], [place] [address] Feb, Diabetes mellitus without mention of complication, type II or unspecified type, not stated as uncontrolled 250.00 and Chronic pain 338.29 [facility] [address], [place] [address] Feb, [facility] [address] [place] [address] January, Diabetes mellitus without mention of complication, type II or unspecified type, not stated as uncontrolled 250.00 and Chronic pain 338.29 [facility] [address], [place] [address] January, [facility] [address], [place] [address] Dec, [facility] [id number] [place] [address] Dec, [facility] [address], [place] [address] Oct, [facility] [id number] [place] [address] Oct, [facility] [address] [place] [address] Oct, [facility] [address], [place] [address] Oct, [facility] [address], [place] [address] Oct, [facility] [address], [place] [address] Oct, [facility] [address], [place] [address] Oct, [facility] [address], [place] [address] Oct, [facility] [address], [place] [address] Oct, [facility] [address], [place] [address] Oct, [facility] [address], [place] [address] Oct, [facility] [address] [place] [address] Oct, [facility] [place] [facility] [address] [id number] [place] [address] Sep, [facility] [place] [facility] [address] [id number] [place] [address] Sep, [facility] [place] [facility] [address] [id number] [place] [address] Aug, [facility] [place] [facility] [address] [id number] [place] [address] Aug, [facility] [place] [facility] [address] [id number] [place] [address] Aug, [facility] [place] [facility] [address] [id number] [place] [address] Aug, [facility] [place] [facility] [address] [id number] [place] [address] Aug, [facility] [place] [facility] [address] [id number] [place] [address] Aug, [facility] [place] [facility] [address] [id number] [place] [address] Aug, [facility] [place] [facility] [address] [facility] [id number] [place] [address] Aug, [facility] [place] [facility] [address] [id number] [place] [address] Aug, [facility] [place] [facility] [address] [id number] [place] [address] Aug, [facility] [place] [facility] [address] [id number] [place] [address] Jul, [facility] [place] [facility] [address] [id number] [place] [address] Jul, [facility] [place] [facility] [address] [id number] [place] [address] Jun, [facility] [place] [facility] [address] [id number] [place] [address] 29 Jun, 2014 [facility] [place] [facility] [address] [id number] [place] [address] Jun, [facility] [place] [facility] [address] [id number] [place] [address] 15 Jun, 2014 [facility] [place] [facility] [address] [id number] [place] [address] 14 Jun, 2014 [facility] [place] [facility] [address] [id number] [place] [address] Jun, [facility] [place] [facility] [address] [id number] [place] [address] Jun, [facility] [place] [facility] [address] [id number] [place] [address] 30 May, 2013 [facility] [place] [facility] [address] [id number] [place] [address] 30 May, 2013 [facility] [place] [facility] [address] [id number] [place] [address] 30 May, 2013 [facility] [place] [facility] [address] [id number] [place] [address] 30 May, 2013 [facility] [place] [facility] [address] [id number] [place] [address] 26 May, 2013 [facility] [place] [facility] [address] [id number] [place] [address] 26 Sep, 2013 [facility] [place] [facility] [address] [id number] [place] [address] 26 May, 2013 [facility] [place] [facility] [address] [id number] [place] [address] 26 May, 2013 [facility] [place] [facility] [address] [id number] [place] [address] 24 May, 2013 [facility] [place] [facility] [address] [id number] [place] [address] May, [facility] [place] [facility] [address] [id number] [place] [address] May, 2013 [facility] [place] [facility] [address] [id number] [place] [address] May, [facility] [place] [facility] [address] [id number] [place] [address] May, [facility] [place] [facility] [address] [id number] [place] [address] Mar, [facility] [place] [facility] [address] [id number] [place] [address] Mar, [facility] [place] [facility] [address] [id number] [place] [address] Mar, [facility] [place] [facility] [address] [id number] [place] [address] Mar, [facility] [place] [facility] [address] [id number] [place] [address] Mar, [facility] [place] [facility] [address] [id number] [place] [address] Mar, [facility] [place] [facility] [address] [id number] [place] [address] Feb, [facility] [place] [facility] [address] [id number] [place] [address] Feb, [facility] [place] [facility] [address] [id number] [place] [address] Feb, [facility] [place] [facility] [address] [id number] [place] [address] Feb, [facility] [place] [facility] [address] [id number] [place] [address] Feb, [facility] [place] [facility] [address] [id number] [place] [address] Feb, [facility] [place] [facility] [address] [id number] [place] [address] Feb, [facility] [address] [id number] [place] [address] Feb, [facility] [place] [facility] [address] [id number] [place] [address] Feb, [facility] [address] [id number] [place] [address] January, [facility] [place] [facility] [address] [id number] [place] [address] January, [facility] [place] [facility] [address] [id number] [place] [address] Dec, [facility] [place] [facility] [address] [id number] [place] [address] Dec, [facility] [place] [facility] [address] [id number] [place] [address] Dec, [facility] [address] [id number] [place] [address] Dec, [facility] [place] [facility] [address] [id number] [place] [address] Nov, [facility] [address] [id number] [place] [address] Nov, [facility] [place] [facility] [address] [id number] [place] [address] Nov, [facility] [place] [facility] [address] [id number] [place] [address] Nov, [facility] [place] [facility] [address] [id number] [place] [address] Nov, [facility] [place] [facility] [address] [id number] [place] [address] Nov, [facility] [place] [facility] [address] [id number] [place] [address] Nov, [facility] [address] [id number] [place] [address] Nov, [facility] [place] [facility] [address] [id number] [place] [address] Nov, [facility] [place] [facility] [address] [id number] [place] [address] Nov, [facility] [place] [facility] [address] [id number] [place] [address] Oct, [facility] [place] [facility] [address] [id number] [place] [address] Oct, [facility] [place] [facility] [address] [id number] [place] [address] Sep, [facility] [place] [facility] [address] [id number] [place] [address] Sep, [facility] [place] [facility] [address] [id number] [place] [address] Sep, [facility] [place] [facility] [address] [id number] [place] [address] Aug, [facility] [place] [facility] [address] [id number] [place] [address] Aug, [facility] [place] [facility] [address] [id number] [place] [address] Aug, [facility] [place] [facility] [address] [id number] [place] [address] Aug, [facility] [place] [facility] [address] [id number] [place] [address] Jul, [facility] [place] [facility] [address] [id number] [place] [address] Jul, [facility] [place] [facility] [address] [id number] [place] [address] Jul, [facility] [place] [facility] [address] [id number] [place] [address] Jul, [facility] [place] [facility] [address] [id number] [place] [address] Jun, [facility] [place] [facility] [address] [id number] [place] [address] Jun, [facility] [place] [facility] [address] [id number] [place] [address] Jun, [facility] [place] [facility] [address] [id number] [place] [address] Jun, [facility] [place] [facility] [address] [id number] [place] [address] Jun, [facility] [place] [facility] [address] [id number] [place] [address] Jun, [facility] [place] [facility] [address] [id number] [place] [address] Jun, [facility] [place] [facility] [address] [id number] [place] [address] Jun, [facility] [place] [facility] [address] [id number] [place] [address] May, [facility] [place] [facility] [address] [id number] [place] [address] Apr, [facility] [place] [facility] [address] [id number] [place] [address] Mar, [facility] [place] [facility] [address] [id number] [place] [address] Mar, [facility] [place] [facility] [address] [id number] [place] [address] Feb, [facility] [place] [facility] [address] [id number] [place] [address] Feb, [facility] [place] [facility] [address] [id number] [place] [address] Feb, [facility] [place] [facility] [address] [id number] [place] [address] 24 Dec, 2012 [facility] [address] [id number] [place] [address] Dec, [facility] [place] [facility] [address] [id number] [place] [address] Dec, [facility] [place] [facility] [address] [id number] [place] [address] Nov, [facility] [place] [facility] [address] [id number] [place] [address] Oct, [facility] [place] [facility] [address] [id number] [place] [address] Oct, [facility] [address] [id number] [place] [address] Oct, [facility] [address] [id number] [place] [address] 08 Oct, 2012 [facility] [place] [facility] [address] [id number] [place] [address] Sep, [facility] [address] [id number] [place] [address] Sep, [facility] [place] [facility] [address] [id number] [place] [address] Aug, [facility] [place] [facility] [address] [id number] [place] [address] Aug, [facility] [place] [facility] [address] [id number] [place] [address] Aug, [facility] [place] [facility] [address] [id number] [place] [address] Aug, [facility] [place] [facility] [address] [id number] [place] [address] Aug, [facility] [place] [facility] [address] [id number], [place] [address] 21 Aug, 2012 [facility] [place] [facility] [address] [id number] [place] [address] 18 Aug, 2012 [facility] [place] [facility] [address] [id number] [place] [address] 18 Aug, 2012 [facility] [place] [facility] [address] [id number] [place] [address] 14 Aug, 2012 [facility] [place] [facility] [address] [id number] [place] [address] 14 Aug, 2012 [facility] [place] [facility] [address] [id number] [place] [address] 10 Aug, 2012 [facility] [place] [facility] [address] [id number] [place] [address] 10 Aug, 2012 [facility] [place] [facility] [address] [id number] [place] [address] 30 Jul, 2012 [facility] [place] [facility] [address] [id number] [place] [address] 30 Jul, 2012 [facility] [place] [facility] [address] [id number] [place] [address] 26 Jul, 2012 [facility] [place] [facility] [address] [id number] [place] [address] 26 Jul, 2012 [facility] [place] [facility] [address] [id number] [place] [address] Jul, [facility] [place] [facility] [address] [id number], [place] [address] 20 Jul, 2012 [facility] [place] [facility] [address] [id number] [place] [address] 19 Jul, 2012 [facility] [place] [facility] [address] [id number] [place] [address] 19 Jul, 2012 [facility] [place] [facility] [address] [facility] [id number] [place] [address] 16 Jul, 2012 [facility] [place] [facility] [address] [id number] [place] [address] Jul, [facility] [place] [facility] [address] [id number] [place] [address] Jun, [facility] [place] [facility] [address] [id number] [place] [address] Jun, [facility] [place] [facility] [address] [id number] [place] [address] Jun, [facility] [place] [facility] [address] [id number] [place] [address] Jun, [facility] [place] [facility] [address] [id number] [place] [address] Apr, [facility] [place] [facility] [address] [id number] [place] [address] Mar, [facility] [place] [facility] [address] [id number] [place] [address] Mar, [facility] [place] [facility] [address] [id number] [place] [address] Mar, [facility] [place] [facility] [address] [id number] [place] [address] Mar, [facility] [place] [facility] [address] [id number] [place] [address] Mar, [facility] [place] [facility] [address] [id number] [place] [address] Feb, [facility] [place] [facility] [address] [id number] [place] [address] Feb, [facility] [place] [facility] [address] [id number] [place] [address] January, [facility] [place] [facility] [address] [id number] [place] [address] January, [facility] [place] [facility] [address] [id number] [place] [address] Nov, [facility] [place] [facility] [address] [id number] [place] [address] Nov, [facility] [place] [facility] [address] [id number] [place] [address] 16 Nov, 2011 [facility] [place] [facility] [address] [id number] [place] [address] Nov, [facility] [place] [facility] [address] [id number] [place] [address] Nov, [facility] [place] [facility] [address] [id number] [place] [address] Oct, [facility] [place] [facility] [address] [id number] [place] [address] Jul, [facility] [place] [facility] [address] [id number] [place] [address] Jul, [facility] [place] [facility] [address] [id number] [place] [address] Jul, [facility] [place] [facility] [address] [id number] [place] [address] Jun, [facility] [place] [facility] [address] [id number] [place] [address] Jun, [facility] [place] [facility] [address] [id number], [place] [address] Dec, [facility] [place] [facility] [address] [id number], [place] [address] Aug, [facility] [place] [facility] [address] [id number] [place] [address] Aug, [facility] [place] [facility] [address] [id number] [place] [address] Jul, [facility] [place] [facility] [address] [id number] [place] [address] Jul, [facility] [place] [facility] [address] [facility] [id number], [place] [address] Jul, [facility] [address] [id number], [place] [address] Jun, [facility] [address] [id number], [place] [address] Jun, [facility] [address] [id number], [place] [address] Jun, [facility] [id number], [place] [address] May, [facility] [id number], [place] [address] Feb, [facility] [address] [id number], [place] [address] January, IMMUNIZATIONS No Known Immunizations SOCIAL HISTORY [...]
--- OUTSIDE RECORDS SUMMARY | 2019-04-25 17:30 | XMS REPORT ---
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 Name Role Phone MYRON LOCO Unavailable PROBLEMS Type Condition ICD9-CM Code JZR07-VN Code Onset Dates Condition Status SNOMED Code Problem Primary insomnia F51.01 Active 824212797 Problem Hyperlipidemia, mixed E78.2 Active 800539925 Problem Hypertension, benign I10 Active 29950568 Problem Mood disorder F39 Active 97570297 Problem Precordial pain R07.2 Active 90854260 Problem Chronic obstructive pulmonary disease, unspecified COPD type J44.9 Active 47514388 Problem Depression, unspecified depression type F32.9 Active 51032202 Problem Neuropathy, diabetic E11.40 Active 030245035 Problem Cirrhosis of liver without ascites, unspecified hepatic cirrhosis type K74.60 Active 55369964 Problem Type 2 diabetes mellitus without complications E11.9 Active 875935468 ALLERGIES No Information ENCOUNTERS Encounter Location Date Diagnosis [place] [id number] [place] [address] Dec, Diabetes E11.9 and Mood disorder F39 [place] [id number] [place] [address] Dec, [place] [id number] [place] [address] Nov, [place] [id number] [place] [address] Nov, Cirrhosis of liver without ascites, unspecified hepatic cirrhosis type K74.60 ; Type 2 diabetes mellitus without complications E11.9 ; Precordial pain R07.2 and BMI 40.0-44.9, adult Z68.41 [place] [address] [address] Nov, Cirrhosis of liver without ascites, unspecified hepatic cirrhosis type K74.60 [facility] [address] [address] Oct, [facility] [address], [place] [address] Oct, Cirrhosis of liver without ascites, unspecified hepatic cirrhosis type K74.60 ; Chronic obstructive pulmonary disease, unspecified COPD type J44.9 and Influenza-like illness R69 [facility] [address] [address] Oct, [facility] [id number] [place] [address] Oct, [facility] [address], [place] [address] Oct, Cirrhosis of liver without ascites, unspecified hepatic cirrhosis type K74.60 [facility] [address], [place] [address] Sep, [facility] [address], [place] [address] Sep, Chronic obstructive pulmonary disease, unspecified COPD type J44.9 [facility] [address], [place] [address] Sep, Cirrhosis of liver without ascites, unspecified hepatic cirrhosis type K74.60 and Chronic obstructive pulmonary disease, unspecified COPD type J44.9 [facility] [address], [place] [address] Aug, [facility] [address] [address] Aug, Cirrhosis of liver without ascites, unspecified hepatic cirrhosis type K74.60 [facility] [address], [place] [address] Aug, [facility] [id number] [place] [address] Aug, [facility] [id number] [place] [address] Jul, [facility] [id number] [place] [address] Jul, Diabetes E11.9 and Viral gastroenteritis A08.4 [facility] [address] [address] Jul, Cirrhosis of liver without ascites, unspecified hepatic cirrhosis type K74.60 and Chronic obstructive pulmonary disease, unspecified COPD type J44.9 [place] [id number] [place] [address] Jul, [facility] [id number] [place] [address] Jul, Cirrhosis of liver without ascites, unspecified hepatic cirrhosis type K74.60 [place] [id number] [place] [address] Jul, [facility] [id number] [place] [address] Jul, [facility] [id number] [place] [address] Jun, Cirrhosis of liver without ascites, unspecified hepatic cirrhosis type K74.60 and Viral gastroenteritis A08.4 [facility] [id number] [place] [address] Jun, Nausea and vomiting, intractability of vomiting not specified, unspecified vomiting type R11.2 ; Acute nonintractable headache, unspecified headache type R51 and History of encephalopathy Z86.69 [facility] [id number] [place] [address] Jun, [facility] [id number] [place] [address] Jun, Neuropathy, diabetic E11.40 and Hypertension, benign I10 [facility] [id number] [place] [address] Jun, [facility] [id number] [place] [address] Jun, [facility] [id number] [place] [id number] Jun, [facility] [id number] [place] [address] Jun, [facility] [id number] [place] [address] Jun, [facility] [id number] [place] [address] Jun, Viral gastroenteritis A08.4 and Diabetes E11.9 [facility] [id number] [place] [address] May, Lumbago with sciatica, left side M54.42 [facility] [id number] [place] [address] 14 May, 2017 Lumbago with sciatica, left side M54.42 [facility] [id number] [place] [address] May, [facility] [id number] [place] [address] May, [facility] [id number] [place] [address] Apr, Lumbago with sciatica, left side M54.42 ; Neuropathy, diabetic E11.40 and Mood disorder F39 [facility] [id number] [place] [address] Apr, [facility] [id number] [place] [address] Apr, [facility] [id number] [place] [address] Mar, Other chronic pain G89.29 and Type 2 diabetes mellitus without complications E11.9 [facility] [address], [place] [address] Mar, Other chronic pain G89.29 [facility] [address], [place] [address] Feb, Other chronic pain G89.29 [facility] [id number] [place] [address] January, Shoulder pain, left M25.512 and Other chronic pain G89.29 [facility] [address] [place] [address] January, [facility] [id number] [place] [address] January, Drug-induced erectile dysfunction N52.2 [facility] [id number] [place] [address] January, Diabetes E11.9 [facility] [address] [place] [address] January, Diabetes E11.9 ; Chronic pain disorder G89.4 ; Lumbago with sciatica, left side M54.42 and Other acute postprocedural pain G89.18 [facility] [address] [address] Dec, Drug-induced erectile dysfunction N52.2 [facility] [address], [place] [address] Nov, Drug-induced erectile dysfunction N52.2 [facility] [address] [address] Nov, Drug-induced erectile dysfunction N52.2 [facility] [address], [place] [address] Oct, Diabetes E11.9 [facility] [id number] [address] 02 Oct, 2016 Diabetes E11.9 ; Neuropathy, diabetic E11.40 and Drug-induced erectile dysfunction N52.2 [facility] [id number] [place] [address] Sep, [facility] [id number] [place] [address] Aug, Diabetes type 2, controlled E11.9 [facility] [id number] [place] [address] Aug, Diabetic mononeuropathy associated with type 2 diabetes mellitus E11.41 [facility] [id number] [place] [address] Jul, [facility] [id number] [place] [address] Jul, Primary insomnia F51.01 [facility] [id number] [place] [address] Jun, [facility] [id number] [place] [address] Jun, Diabetes E11.9 ; Primary insomnia F51.01 and Depression, unspecified depression type F32.9 [facility] [address], [place] [address] Jun, [facility] [id number] [place] [address] Jun, [facility] [id number] [place] [address] May, [facility] [id number] [place] [address] May, Mood disorder F39 [facility] [address], [place] [address] Apr, [facility] [id number] [place] [address] Mar, Acute cystitis without hematuria N30.00 [facility] [id number] [place] [address] Feb, Diabetes E11.9 [facility] [address], [place] [address] January, [facility] [id number] [place] [address] January, [facility] [id number] [place] [address] January, Acute cystitis without hematuria N30.00 ; 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 ; Fatigue, unspecified type R53.83 and Weight loss, abnormal R63.4 [facility] [address], [place] [address] January, [facility] [id number] [place] [address] Dec, [facility] [id number] [place] [address] Nov, [facility] [id number] [place] [address] Nov, Neuropathy, diabetic E11.40 [facility] [address], [place] [address] Oct, Neuropathy, diabetic E11.40 [facility] [address], [place] [address] Oct, [facility] [address], [place] [address] Oct, [facility] [address], [place] [address] Oct, [facility] [address], [place] [address] Aug, [place] [id number] [place] [address] Aug, Type 2 diabetes mellitus with foot ulcer E11.621 ; Nausea R11.0 ; Other complications following infusion, transfusion and therapeutic injection, initial encounter T80.89XA ; Hyperlipidemia, mixed E78.2 and Nail ingrowing L60.0 [place] [id number] [place] [address] Jul, [place] [address] [address] Jul, Diabetes E11.[address] [address] Jul, Type 2 diabetes mellitus with foot ulcer E11.621 and Non-pressure chronic ulcer of other part of left foot with unspecified severity L97.[address] [address] Jun, Diabetes E11.9 ; Shoulder pain, left M25.512 ; Abdominal pain, lower R10.30 ; Diabetes mellitus without mention of complication, type II or unspecified type, not stated as uncontrolled 250.00 and Hepatitis C, chronic B18.2 [place] [id number] [place] [address] Jun, Cellulitis, abdominal wall L03.311 and Nocturnal hypoxemia G47.34 [place] [id number] [place] [address] Jun, Diabetes mellitus without mention of complication, type II or unspecified type, not stated as uncontrolled 250.00 [place] [id number] [place] [address] May, Diabetes mellitus without mention of complication, type II or unspecified type, not stated as uncontrolled 250.00 [place] [id number] [place] [address] May, Abdominal pain 789.00 [place] [address] [address] May, [facility] [address], [place] [address] May, [facility] [address], [place] [address] May, Diabetes mellitus without mention of complication, type II or unspecified type, not stated as uncontrolled 250.00 [facility] [address], [place] [address] Apr, [facility] [address], [place] [address] Mar, [facility] [address], [place] [address] Mar, Diabetes mellitus without mention of complication, type II or unspecified type, not stated as uncontrolled 250.00 [facility] [address], [place] [address] Feb, Diabetes mellitus without mention of complication, type II or unspecified type, not stated as uncontrolled 250.00 and Chronic pain 338.29 [facility] [address], [place] [address] Feb, [facility] [id number] [address] January, Diabetes mellitus without mention of complication, type II or unspecified type, not stated as uncontrolled 250.00 and Chronic pain 338.29 [facility] [id number] [address] January, [facility] [address], [place] [address] Dec, [facility] [address], [place] [address] Dec, [facility] [id number] [address] Oct, [facility] [place] [facility] [address] [id number] [place] [address] Oct, 2014 [facility] [place] [facility] [address] [id number] [place] [address] Oct, 2014 [facility] [place] [facility] [address] [id number] [place] [address] Oct, 2014 [facility] [place] [facility] [address] [id number] [place] [address] Oct, 2014 [facility] [place] [facility] [address] [id number] [place] [address] Oct, 2014 [facility] [place] [facility] [address] [id number] [place] [address] Oct, 2014 [facility] [place] [facility] [address] [id number] [place] [address] Oct, 2014 [facility] [place] [facility] [address] [id number] [place] [address] Oct, 2014 [facility] [place] [facility] [address] [id number] [place] [address] Oct, 2014 [facility] [place] [facility] [address] [id number] [place] [address] Oct, 2014 [facility] [place] [facility] [address] [id number] [place] [address] Oct, 2014 [facility] [place] [facility] [address] [id number] [place] [address] Sep, [facility] [place] [facility] [address] [id number] [place] [address] Sep, [facility] [place] [facility] [address] [facility] [id number] [place] [address] Aug, [facility] [place] [facility] [address] [facility] [id number] [place] [address] Aug, [facility] [place] [facility] [address] [id number] [place] [address] Aug, [facility] [place] [facility] [address] [id number] [place] [address] Aug, [facility] [place] [facility] [address] [id number] [place] [address] Aug, [facility] [place] [facility] [address] [id number] [place] [address] Aug, [facility] [place] [facility] [address] [id number] [place] [address] Aug, [facility] [place] [facility] [address] [id number] [place] [address] Aug, [facility] [place] [facility] [address] [id number] [place] [address] Aug, [facility] [place] [facility] [address] [id number] [place] [address] Aug, [facility] [place] [facility] [address] [id number] [place] [address] Jul, [facility] [place] [facility] [address] [id number] [place] [address] Jul, [facility] [place] [facility] [address] [id number] [place] [address] Jun, [facility] [place] [facility] [address] [id number] [place] [address] Jun, [facility] [place] [facility] [address] [id number] [place] [address] Jun, [facility] [place] [facility] [address] [id number] [place] [address] Jun, [facility] [place] [facility] [address] [id number] [place] [address] Jun, [facility] [place] [facility] [address] [id number] [place] [address] Jun, [facility] [place] [facility] [address] [id number] [place] [address] Jun, [facility] [place] [facility] [address] [id number] [place] [address] 30 May, 2013 [facility] [place] [facility] [address] [id number] [place] [address] 30 May, 2013 [facility] [place] [facility] [address] [id number] [place] [address] 30 May, 2013 [facility] [place] [facility] [address] [id number] [place] [address] 30 May, 2013 [facility] [place] [facility] [address] [id number] [place] [address] May, 2013 [facility] [place] [facility] [address] [id number] [place] [address] May, 2013 [facility] [place] [facility] [address] [id number] [place] [address] May, 2013 [facility] [place] [facility] [address] [id number] [place] [address] May, 2013 [facility] [place] [facility] [address] [id number] [place] [address] 24 May, 2013 [facility] [place] [facility] [address] [id number] [place] [address] May, 2013 [facility] [place] [facility] [address] [id number] [place] [address] May, 2013 [facility] [place] [facility] [address] [id number] [place] [address] May, 2013 [facility] [place] [facility] [address] [id number] [place] [address] May, 2013 [facility] [place] [facility] [address] [id number] [place] [address] Mar, [facility] [place] [facility] [address] [id number] [place] [address] Mar, [facility] [place] [facility] [address] [id number] [place] [address] Mar, [facility] [place] [facility] [address] [id number] [place] [address] Mar, [facility] [place] [facility] [address] [id number] [place] [address] Mar, [facility] [place] [facility] [address] [id number] [place] [address] Mar, [facility] [place] [facility] [address] [id number] [place] [address] Feb, [facility] [place] [facility] [address] [id number] [place] [address] Feb, [facility] [place] [facility] [address] [id number] [place] [address] Feb, [facility] [place] [facility] [address] [id number] [place] [address] Feb, [facility] [place] [facility] [address] [id number] [place] [address] Feb, [facility] [place] [facility] [address] [id number] [place] [address] Feb, [facility] [place] [facility] [address] [id number] [place] [address] Feb, [facility] [place] [facility] [address] [id number] [place] [address] Feb, [facility] [place] [facility] [address] [id number] [place] [address] Feb, [facility] [place] [facility] [address] [id number] [place] [address] January, [facility] [place] [facility] [address] [id number] [place] [address] January, [facility] [place] [facility] [address] [id number] [place] [address] 30 Dec, 2013 [facility] [place] [facility] [address] [id number] [place] [address] 30 Dec, 2013 [facility] [place] [facility] [address] [id number] [place] [address] Dec, [facility] [place] [facility] [address] [id number] [place] [address] Dec, [facility] [place] [facility] [address] [id number] [place] [address] Nov, [facility] [place] [facility] [address] [id number] [place] [address] Nov, [facility] [place] [facility] [address] [id number] [place] [address] Nov, [facility] [place] [facility] [address] [id number] [place] [address] Nov, [facility] [place] [facility] [address] [id number] [place] [address] Nov, [facility] [place] [facility] [address] [id number] [place] [address] Nov, [facility] [place] [facility] [address] [id number] [place] [address] Nov, [facility] [place] [facility] [address] [id number] [place] [address] Nov, [facility] [place] [facility] [address] [id number] [place] [address] Nov, [facility] [place] [facility] [address] [id number] [place] [address] Nov, [facility] [place] [facility] [address] [id number] [place] [address] Oct, [facility] [place] [facility] [address] [id number] [place] [address] Oct, [facility] [place] [facility] [address] [id number] [place] [address] Sep, [facility] [place] [facility] [address] [id number] [place] [address] Sep, [facility] [place] [facility] [address] [facility] [id number] [place] [address] Sep, [facility] [place] [facility] [address] [id number] [place] [address] Aug, [facility] [place] [facility] [address] [id number] [place] [address] Aug, [facility] [place] [facility] [address] [id number] [place] [address] Aug, [facility] [place] [facility] [address] [id number] [place] [address] Aug, [facility] [place] [facility] [address] [id number], [place] [address] Jul, [facility] [place] [facility] [address] [id number], [place] [address] Jul, [facility] [place] [facility] [address] [id number], [place] [address] Jul, [facility] [place] [facility] [address] [id number], [place] [address] Jul, [facility] [place] [facility] [address] [id number], [place] [address] Jun, [facility] [place] [facility] [address] [id number] [place] [address] Jun, [facility] [place] [facility] [address] [id number], [place] [address] Jun, [facility] [place] [facility] [address] [id number], [place] [address] Jun, [facility] [place] [facility] [address] [id number] [place] [address] Jun, [facility] [address] [id number] [place] [address] Jun, [facility] [address] [id number] [place] [address] Jun, [facility] [address] [id number] [place] [address] Jun, [facility] [address] [id number] [place] [address] May, [facility] [address] [id number] [place] [address] Apr, [facility] [address] [id number] [place] [place] [address] Mar, [facility] [address] [id number] [place] [address] Mar, [facility] [address] [id number] [place] [address] Feb, [facility] [address] [id number] [place] [address] Feb, [facility] [address] [facility] [id number] [place] [address] Feb, [facility] [place] [facility] [address] [id number] [place] [address] 24 Dec, 2012 [facility] [address] [id number] [place] [address] Dec, [facility] [place] [facility] [address] [id number] [place] [address] Dec, [facility] [place] [facility] [address] [id number] [place] [address] Nov, [facility] [address] [id number] [place] [address] Oct, [facility] [address] [id number] [place] [address] 27 Oct, 2012 [facility] [place] [facility] [address] [id number] [place] [address] 13 Oct, 2012 [facility] [place] [facility] [address] [id number] [place] [address] 08 Oct, 2012 [facility] [place] [facility] [address] [id number] [place] [address] 14 Sep, 2012 [facility] [address] [id number] [place] [address] Sep, [facility] [address] [id number] [place] [address] 31 Aug, 2012 [facility] [address] [id number] [place] [address] Aug, [facility] [place] [facility] [address] [id number] [place] [address] Aug, [facility] [place] [facility] [address] [id number] [place] [address] 26 Aug, 2012 [facility] [place] [facility] [address] [id number] [place] [address] Aug, [facility] [place] [facility] [address] [id number] [place] [address] Aug, [facility] [place] [facility] [address] [id number], [place] [address] 18 Aug, 2012 [facility] [place] [facility] [address] [id number] [place] [address] 18 Aug, 2012 [facility] [place] [facility] [address] [id number] [place] [address] 14 Aug, 2012 [facility] [place] [facility] [address] [id number] [place] [address] 14 Aug, 2012 [facility] [place] [facility] [address] [id number] [place] [address] 10 Aug, 2012 [facility] [place] [facility] [address] [id number] [place] [address] 10 Aug, 2012 [facility] [place] [facility] [address] [id number] [place] [address] 30 Jul, 2012 [facility] [place] [facility] [address] [id number] [place] [address] Jul, [facility] [place] [facility] [address] [id number] [place] [address] Jul, [facility] [place] [facility] [address] [id number] [place] [address] Jul, [facility] [place] [facility] [address] [id number] [place] [address] Jul, [facility] [place] [facility] [address] [id number] [place] [address] Jul, [facility] [place] [facility] [address] [id number] [place] [address] Jul, [facility] [place] [facility] [address] [id number] [place] [address] Jul, [facility] [place] [facility] [address] [facility] [id number] [place] [address] Jul, [facility] [place] [facility] [address] [id number] [place] [address] 16 Jul, 2012 [facility] [place] [facility] [address] [id number], [place] [address] Jun, [facility] [place] [facility] [address] [id number] [place] [address] Jun, [facility] [place] [facility] [address] [facility] [id number], [place] [address] 16 Jun, 2012 [facility] [place] [facility] [address] [id number], [place] [address] 16 Jun, 2012 [facility] [place] [facility] [address] [id number] [place] [address] Apr, [facility] [place] [facility] [address] [id number] [place] [address] Mar, [facility] [place] [facility] [address] [id number] [place] [address] Mar, [facility] [place] [facility] [address] [id number] [place] [address] Mar, [facility] [place] [facility] [address] [id number] [place] [address] Mar, [facility] [place] [facility] [address] [id number] [place] [address] Mar, [facility] [place] [facility] [address] [id number] [place] [address] Feb, [facility] [place] [facility] [address] [id number] [place] [address] Feb, [facility] [place] [facility] [address] [id number] [place] [address] January, [facility] [place] [facility] [address] [id number] [place] [address] January, [facility] [place] [facility] [address] [id number] [place] [address] Nov, [facility] [place] [facility] [address] [id number] [place] [address] Nov, [facility] [place] [facility] [address] [id number] [place] [address] 16 Nov, 2011 [facility] [place] [facility] [address] [id number] [place] [address] Nov, [facility] [place] [facility] [address] [id number] [place] [address] Nov, [facility] [place] [facility] [address] [id number] [place] [address] 10 Oct, 2011 [facility] [place] [facility] [address] [id number] [place] [address] Jul, [facility] [place] [facility] [address] [id number] [place] [address] Jul, [facility] [place] [facility] [address] [id number] [place] [address] Jul, [facility] [place] [facility] [address] [id number] [place] [address] Jun, [facility] [place] [facility] [address] [id number] [place] [address] Jun, [facility] [place] [facility] [address] [id number] [place] [address] Dec, [facility] [place] [facility] [address] [id number] [place] [address] Aug, [facility] [place] [facility] [address] [id number] [place] [address] Aug, [facility] [place] [facility] [address] [id number] [place] [address] Jul, [facility] [place] [facility] [address] [id number] [place] [address] Jul, [facility] [place] [facility] [address] [id number], [place] [address] Jul, [facility] [place] [facility] [address] [id number], [place] [address] 25 Jun, 2010 [facility] [place] [facility] [address] [id number] [place] [address] Jun, [facility] [place] [facility] [address] [id number], [place] [address] Jun, [facility] [place] [facility] [address] [id number] [place] [address] 15 May, 2010 [facility] [place] [facility] [address] [facility] [id number] [place] [address] 15 Feb, 2010 [facility] [address] [facility] [id number], [place] [address] January, IMMUNIZATIONS No Known Immunizations SOCIAL HISTORY Never Assessed REASON FOR VISIT lab PLAN OF CARE VITAL SIGNS MEDICATIONS Medication Instructions Dosage Frequency Start Date End Date Duration Status MS Contin 15 MG Orally Once a day 1 tablet 24h May, 28 days Active RESULTS No Results PROCEDURES [...]
--- OUTSIDE RECORDS SUMMARY | 2019-04-25 17:31 | XMS REPORT ---
Author Author MYRON LOCO Organization [facility] Address [address] [place] [address] Care Team Providers Care Dormitory Keeper Name Role Phone MYRON LOCO Unavailable PROBLEMS Type Condition ICD9-CM Code QRD47-MS Code Onset Dates Condition Status SNOMED Code Problem Primary insomnia F51.01 Active 007545275 Problem Hyperlipidemia, mixed E78.2 Active 229646817 Problem Hypertension, benign I10 Active 86562904 Problem Mood disorder F39 Active 48042159 Problem Precordial pain R07.2 Active 64591219 Problem Chronic obstructive pulmonary disease, unspecified COPD type J44.9 Active 99912280 Problem Depression, unspecified depression type F32.9 Active 13881308 Problem Neuropathy, diabetic E11.40 Active 375638287 Problem Cirrhosis of liver without ascites, unspecified hepatic cirrhosis type K74.60 Active 03486771 Problem Type 2 diabetes mellitus without complications E11.9 Active 430328099 ALLERGIES Substance Reaction Event Type Date Status Tylenol liver problems Drug Allergy Apr, Active Aspirin liver problems Drug Allergy Apr, Active ENCOUNTERS Encounter Location Date Diagnosis [place] [id number] [place] [address] Dec, Diabetes E11.9 and Mood disorder F39 [place] [id number] [place] [address] Dec, [place] [address] [place] [id number] [place] [address] Nov, [place] [address] [place] [id number] [place] [address] Nov, Cirrhosis of liver without ascites, unspecified hepatic cirrhosis type K74.60 ; Type 2 diabetes mellitus without complications E11.9 ; Precordial pain R07.2 and BMI 40.0-44.9, adult Z68.41 [place] [address] [address] Nov, Cirrhosis of liver without ascites, unspecified hepatic cirrhosis type K74.60 [facility] [address] [place] [address] Oct, [facility] [address] [address] Oct, Cirrhosis of liver without ascites, unspecified hepatic cirrhosis type K74.60 ; Chronic obstructive pulmonary disease, unspecified COPD type J44.9 and Influenza-like illness R69 [facility] [address], [place] [address] Oct, [facility] [address], [place] [address] Oct, [facility] [address] [place] [address] Oct, Cirrhosis of liver without ascites, unspecified hepatic cirrhosis type K74.60 [facility] [address] [address] Sep, [facility] [address], [place] [address] Sep, Chronic obstructive pulmonary disease, unspecified COPD type J44.9 [facility] [address], [place] [address] Sep, Cirrhosis of liver without ascites, unspecified hepatic cirrhosis type K74.60 and Chronic obstructive pulmonary disease, unspecified COPD type J44.9 [facility] [address] [place] [address] Aug, [facility] [address], [place] [address] Aug, Cirrhosis of liver without ascites, unspecified hepatic cirrhosis type K74.60 [facility] [address] [place] [address] Aug, [facility] [address] [place] [address] [id number] [place] [address] Aug, [facility] [address] [place] [address] [id number] [place] [address] Jul, [facility] [address] [place] [address] [id number] [place] [address] Jul, Diabetes E11.9 and Viral gastroenteritis A08.4 [facility] [address] [place] [id number] [place] [address] Jul, Cirrhosis of liver without ascites, unspecified hepatic cirrhosis type K74.60 and Chronic obstructive pulmonary disease, unspecified COPD type J44.9 [facility] [address] [place] [address] [id number] [place] [address] Jul, [facility] [address] [place] [id number] [place] [address] Jul, Cirrhosis of liver without ascites, unspecified hepatic cirrhosis type K74.60 [facility] [address] [place] [id number] [place] [address] Jul, [facility] [address] [place] [id number] [place] [address] Jul, [facility] [address] [place] [address] [id number] [place] [address] Jun, Cirrhosis of liver without ascites, unspecified hepatic cirrhosis type K74.60 and Viral gastroenteritis A08.4 [facility] [id number] [place] [address] Jun, Nausea and vomiting, intractability of vomiting not specified, unspecified vomiting type R11.2 ; Acute nonintractable headache, unspecified headache type R51 and History of encephalopathy Z86.69 [facility] [address] [place] [address] [id number] [place] [address] Jun, [facility] [address] [place] [id number] [place] [address] Jun, Neuropathy, diabetic E11.40 and Hypertension, benign I10 [facility] [address] [place] [id number] [place] [address] Jun, [facility] [address] [place] [address] [id number] [place] [address] Jun, [facility] [address] [id number] Jun, [facility] [address] [place] [id number] [place] [address] Jun, [facility] [address] [address] Jun, [facility] [address] [place] [address] [id number] [place] [address] Jun, Viral gastroenteritis A08.4 and Diabetes E11.9 [facility] [address] [place] [id number] [place] [address] May, Lumbago with sciatica, left side M54.42 [facility] [address] [place] [id number] [place] [address] 14 May, 2017 Lumbago with sciatica, left side M54.42 [facility] [address] [place] [id number] [place] [address] May, [facility] [address] [place] [id number] [place] [address] May, [facility] [address] [place] [id number] [place] [address] Apr, Lumbago with sciatica, left side M54.42 ; Neuropathy, diabetic E11.40 and Mood disorder F39 [facility] [address] [place] [id number] [place] [address] Apr, [facility] [address] [place] [id number] [place] [address] Apr, [facility] [address], [place] [address] Mar, Other chronic pain G89.29 and Type 2 diabetes mellitus without complications E11.9 [facility] [address], [place] [address] Mar, Other chronic pain G89.29 [facility] [address] [place] [id number] [address] Feb, Other chronic pain G89.29 [facility] [address] [place] [id number] [place] [address] January, Shoulder pain, left M25.512 and Other chronic pain G89.29 [facility] [address], [place] [address] January, [facility] [address] [place] [id number] [place] [address] January, Drug-induced erectile dysfunction N52.2 [facility] [address], [place] [address] January, Diabetes E11.9 [facility] [address] [place] [address] January, Diabetes E11.9 ; Chronic pain disorder G89.4 ; Lumbago with sciatica, left side M54.42 and Other acute postprocedural pain G89.18 [facility] [address], [place] [address] Dec, Drug-induced erectile dysfunction N52.2 [facility] [address], [place] [address] Nov, Drug-induced erectile dysfunction N52.2 [facility] [address], [place] [address] Nov, Drug-induced erectile dysfunction N52.2 [facility] [address] [place] [id number] [address] Oct, Diabetes E11.9 [facility] [address], [place] [address] Oct, Diabetes E11.9 ; Neuropathy, diabetic E11.40 and Drug-induced erectile dysfunction N52.2 [facility] [address] [place] [id number] [address] Sep, [facility] [address] [place] [id number] [place] [address] Aug, Diabetes type 2, controlled E11.9 [facility] [address] [place] [id number] [place] [address] Aug, Diabetic mononeuropathy associated with type 2 diabetes mellitus E11.41 [facility] [address] [place] [id number] [place] [address] Jul, [facility] [address] [place] [id number] [place] [address] Jul, Primary insomnia F51.01 [facility] [address] [place] [id number] [place] [address] Jun, [facility] [address] [place] [id number] [place] [address] Jun, Diabetes E11.9 ; Primary insomnia F51.01 and Depression, unspecified depression type F32.9 [facility] [address] [place] [id number] [address] Jun, [facility] [address], [place] [address] Jun, [facility] [address] [place] [id number] [place] [address] May, [facility] [address] [place] [id number] [address] May, Mood disorder F39 [facility] [address] [place] [id number] [place] [address] Apr, [facility] [address], [place] [address] Mar, Acute cystitis without hematuria N30.00 [facility] [address] [place] [address] Feb, Diabetes E11.9 [facility] [address] [place] [id number] [place] [address] January, [facility] [address] [place] [id number] [place] [address] January, [facility] [address] [place] [id number] [place] [address] January, Acute cystitis without hematuria N30.00 ; 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 ; Fatigue, unspecified type R53.83 and Weight loss, abnormal R63.4 [facility] [address] [place] [id number] [place] [address] January, [facility] [address] [place] [id number] [place] [address] Dec, [facility] [address] [place] [id number] [place] [address] Nov, [facility] [address] [address] [id number] [address] Nov, Neuropathy, diabetic E11.40 [facility] [id number] [place] [address] Oct, Neuropathy, diabetic E11.40 [facility] [address], [place] [address] Oct, [facility] [address] [place] [id number] [place] [address] Oct, [facility] [address], [place] [address] Oct, [facility] [address] [place] [id number] [place] [address] Aug, [place] [address] [place] [id number] [place] [address] Aug, Type 2 diabetes mellitus with foot ulcer E11.621 ; Nausea R11.0 ; Other complications following infusion, transfusion and therapeutic injection, initial encounter T80.89XA ; Hyperlipidemia, mixed E78.2 and Nail ingrowing L60.0 [place] [address] [address] Jul, [place] [address] [address] Jul, Diabetes E11.[address] [address] Jul, Type 2 diabetes mellitus with foot ulcer E11.621 and Non-pressure chronic ulcer of other part of left foot with unspecified severity L97.529 [place] [address] [place] [id number] [place] [address] Jun, Diabetes E11.9 ; Shoulder pain, left M25.512 ; Abdominal pain, lower R10.30 ; Diabetes mellitus without mention of complication, type II or unspecified type, not stated as uncontrolled 250.00 and Hepatitis C, chronic B18.2 [place] [id number] [place] [address] Jun, Cellulitis, abdominal wall L03.311 and Nocturnal hypoxemia G47.34 [place] [id number] [place] [address] Jun, Diabetes mellitus without mention of complication, type II or unspecified type, not stated as uncontrolled 250.[address] [address] May, Diabetes mellitus without mention of complication, type II or unspecified type, not stated as uncontrolled 250.00 [place] [address] [address] May, Abdominal pain 789.00 [facility] [address], [place] [address] May, [facility] [address], [place] [address] May, [facility] [address], [place] [address] May, Diabetes mellitus without mention of complication, type II or unspecified type, not stated as uncontrolled 250.00 [facility] [address] [place] [address] Apr, [facility] [address] [place] [id number] [place] [address] Mar, [facility] [address], [place] [address] Mar, Diabetes mellitus without mention of complication, type II or unspecified type, not stated as uncontrolled 250.00 [facility] [address], [place] [address] Feb, Diabetes mellitus without mention of complication, type II or unspecified type, not stated as uncontrolled 250.00 and Chronic pain 338.29 [facility] [address], [place] [address] Feb, [facility] [address], [place] [address] January, Diabetes mellitus without mention of complication, type II or unspecified type, not stated as uncontrolled 250.00 and Chronic pain 338.29 [facility] [address], [place] [address] January, [facility] [address], [place] [address] Dec, [facility] [address], [place] [address] Dec, [facility] [place] [facility] [address] [facility] [id number] [place] [address] Oct, 2014 [facility] [place] [facility] [address] [id number] [place] [address] Oct, 2014 [facility] [place] [facility] [address] [id number] [place] [address] Oct, 2014 [facility] [place] [facility] [address] [id number] [place] [address] Oct, 2014 [facility] [place] [facility] [address] [id number] [place] [address] Oct, 2014 [facility] [place] [facility] [address] [id number] [place] [address] Oct, 2014 [facility] [place] [facility] [address] [facility] [id number] [place] [address] Oct, 2014 [facility] [place] [facility] [address] [id number] [place] [address] Oct, 2014 [facility] [place] [facility] [address] [id number] [place] [address] Oct, 2014 [facility] [place] [facility] [address] [facility] [id number] [place] [address] Oct, 2014 [facility] [place] [facility] [address] [id number] [place] [address] Oct, 2014 [facility] [place] [facility] [address] [id number] [place] [address] Oct, 2014 [facility] [place] [facility] [address] [id number] [place] [address] Sep, [facility] [place] [facility] [address] [id number] [place] [address] Sep, [facility] [place] [facility] [address] [id number] [place] [address] Aug, [facility] [place] [facility] [address] [id number] [place] [address] Aug, [facility] [place] [facility] [address] [id number] [place] [address] Aug, [facility] [place] [facility] [address] [id number] [place] [address] Aug, [facility] [place] [facility] [address] [id number] [place] [address] Aug, [facility] [place] [facility] [address] [id number] [place] [address] Aug, [facility] [place] [facility] [address] [id number] [place] [address] Aug, [facility] [place] [facility] [address] [id number] [place] [address] Aug, [facility] [place] [facility] [address] [id number] [place] [address] Aug, [facility] [place] [facility] [address] [id number] [place] [address] Aug, [facility] [place] [facility] [address] [id number] [place] [address] Jul, [facility] [place] [facility] [address] [facility] [id number] [place] [address] Jul, [facility] [place] [facility] [address] [id number] [place] [address] Jun, [facility] [place] [facility] [address] [id number] [place] [address] 29 Jun, 2014 [facility] [place] [facility] [address] [id number] [place] [address] 15 Jun, 2014 [facility] [place] [facility] [address] [facility] [place] [id number] [place] [address] 15 Jun, 2014 [facility] [place] [facility] [address] [facility] [place] [id number] [place] [address] 14 Jun, 2014 [facility] [place] [facility] [address] [id number] [place] [address] Jun, [facility] [place] [facility] [address] [id number] [place] [address] 03 Jun, 2014 [facility] [place] [facility] [address] [id number] [place] [address] 30 May, 2013 [facility] [place] [facility] [address] [id number] [place] [address] 30 May, 2013 [facility] [place] [facility] [address] [id number] [place] [address] 30 May, 2013 [facility] [place] [facility] [address] [id number] [place] [address] 30 May, 2013 [facility] [place] [facility] [address] [id number] [place] [address] May, 2013 [facility] [place] [facility] [address] [id number] [place] [address] May, 2013 [facility] [place] [facility] [address] [id number] [place] [address] May, 2013 [facility] [place] [facility] [address] [id number] [place] [address] May, 2013 [facility] [place] [facility] [address] [id number] [place] [address] 24 May, 2013 [facility] [place] [facility] [address] [id number] [place] [address] May, 2013 [facility] [place] [facility] [address] [id number] [place] [address] May, 2013 [facility] [place] [facility] [address] [id number] [place] [address] May, 2013 [facility] [place] [facility] [address] [id number] [place] [address] May, 2013 [facility] [place] [facility] [address] [id number] [place] [address] Mar, [facility] [place] [facility] [address] [id number] [place] [address] Mar, [facility] [place] [facility] [address] [id number] [place] [address] Mar, [facility] [place] [facility] [address] [id number] [place] [address] Mar, [facility] [place] [facility] [address] [id number] [place] [address] Mar, [facility] [place] [facility] [address] [id number] [place] [address] Mar, [facility] [place] [facility] [address] [id number] [place] [address] Feb, [facility] [place] [facility] [address] [id number] [place] [address] Feb, [facility] [place] [facility] [address] [id number] [place] [address] Feb, [facility] [place] [facility] [address] [id number] [place] [address] Feb, [facility] [place] [facility] [address] [id number] [place] [address] Feb, [facility] [place] [facility] [address] [id number] [place] [address] Feb, [facility] [place] [facility] [address] [id number] [place] [address] Feb, [facility] [place] [facility] [address] [id number] [place] [address] Feb, [facility] [place] [facility] [address] [id number] [place] [address] Feb, [facility] [place] [facility] [address] [id number] [place] [address] January, [facility] [place] [facility] [address] [id number] [place] [address] January, [facility] [address] [id number] [place] [address] Dec, [facility] [place] [facility] [address] [id number] [place] [address] Dec, [facility] [place] [facility] [address] [id number] [place] [address] Dec, [facility] [place] [facility] [address] [id number] [place] [address] Dec, [facility] [place] [facility] [address] [id number] [place] [address] Nov, [facility] [place] [facility] [address] [id number] [place] [address] Nov, [facility] [place] [facility] [address] [id number] [place] [address] Nov, [facility] [place] [facility] [address] [id number] [place] [address] Nov, [facility] [place] [facility] [address] [id number] [place] [address] Nov, [facility] [place] [facility] [address] [id number] [place] [address] Nov, [facility] [place] [facility] [address] [id number] [place] [address] Nov, [facility] [place] [facility] [address] [id number] [place] [address] Nov, [facility] [place] [facility] [address] [id number] [place] [address] Nov, [facility] [place] [facility] [address] [id number] [place] [address] Nov, [facility] [place] [facility] [address] [id number] [place] [address] Oct, [facility] [place] [facility] [address] [id number] [place] [address] Oct, [facility] [place] [facility] [address] [id number] [place] [address] Sep, [facility] [place] [facility] [address] [id number] [place] [address] Sep, [facility] [place] [facility] [address] [id number] [place] [address] Sep, [facility] [place] [facility] [address] [id number] [place] [address] Aug, [facility] [place] [facility] [address] [id number] [place] [address] Aug, [facility] [place] [facility] [address] [id number] [place] [address] Aug, [facility] [place] [facility] [address] [id number], [place] [address] Aug, [facility] [place] [facility] [address] [id number] [place] [address] Jul, [facility] [place] [facility] [address] [facility] [id number], [place] [address] Jul, [facility] [place] [facility] [address] [id number], [place] [address] Jul, [facility] [place] [facility] [address] [id number], [place] [address] Jul, [facility] [place] [facility] [address] [id number], [place] [address] Jun, [facility] [place] [facility] [address] [id number], [place] [address] Jun, [facility] [place] [facility] [address] [facility] [id number], [place] [address] Jun, [facility] [place] [facility] [address] [id number], [place] [address] Jun, [facility] [address] [id number] [place] [address] Jun, [facility] [place] [facility] [address] [id number] [place] [address] Jun, [facility] [place] [facility] [address] [id number] [place] [address] Jun, [facility] [place] [facility] [address] [id number] [place] [address] Jun, [facility] [place] [facility] [address] [id number] [place] [address] May, [facility] [place] [facility] [address] [id number] [place] [address] Apr, [facility] [address] [facility] [id number] [place] [address] Mar, [facility] [place] [facility] [address] [id number] [place] [address] Mar, [facility] [place] [facility] [id number] [place] [address] Feb, [facility] [place] [facility] [address] [facility] [id number] [place] [address] Feb, [facility] [place] [facility] [address] [id number], [place] [address] Feb, [facility] [place] [facility] [address] [id number], [place] [address] 24 Dec, 2012 [facility] [place] [facility] [address] [id number] [place] [address] Dec, [facility] [place] [facility] [address] [facility] [id number] [place] [address] Dec, [facility] [place] [facility] [address] [facility] [id number] [place] [address] Nov, [facility] [place] [facility] [address] [id number] [place] [address] 27 Oct, 2012 [facility] [place] [facility] [address] [id number] [place] [address] 27 Oct, 2012 [facility] [place] [facility] [address] [id number] [place] [address] 13 Oct, 2012 [facility] [place] [facility] [address] [id number] [place] [address] 08 Oct, 2012 [facility] [place] [facility] [address] [id number] [place] [address] 14 Sep, 2012 [facility] [address] [id number] [place] [address] Sep, [facility] [address] [id number] [place] [address] 31 Aug, 2012 [facility] [address] [id number] [place] [address] 31 Aug, 2012 [facility] [address] [id number] [place] [address] Aug, [facility] [address] [id number] [place] [address] 26 Aug, 2012 [facility] [address] [id number] [place] [address] Aug, [facility] [place] [facility] [address] [id number] [place] [address] 21 Aug, 2012 [facility] [place] [facility] [address] [id number] [place] [address] 18 Aug, 2012 [facility] [place] [facility] [address] [id number] [place] [address] 18 Aug, 2012 [facility] [place] [facility] [address] [id number] [place] [address] 14 Aug, 2012 [facility] [place] [facility] [address] [id number] [place] [address] 14 Aug, 2012 [facility] [place] [facility] [address] [id number] [place] [address] 10 Aug, 2012 [facility] [place] [facility] [address] [id number] [place] [address] Aug, [facility] [place] [facility] [address] [id number] [place] [address] 30 Jul, 2012 [facility] [place] [facility] [address] [id number] [place] [address] 30 Jul, 2012 [facility] [place] [facility] [address] [id number] [place] [address] Jul, [facility] [place] [facility] [address] [id number] [place] [address] Jul, [facility] [place] [facility] [address] [id number] [place] [address] Jul, [facility] [place] [facility] [address] [id number] [place] [address] Jul, [facility] [place] [facility] [address] [id number] [place] [address] Jul, [facility] [place] [facility] [address] [id number] [place] [address] Jul, [facility] [place] [facility] [address] [id number], [place] [address] 16 Jul, 2012 [facility] [place] [facility] [address] [id number], [place] [address] 16 Jul, 2012 [facility] [place] [facility] [address] [id number] [place] [address] Jun, [facility] [place] [facility] [address] [id number], [place] [address] 19 Jun, 2012 [facility] [place] [facility] [address] [id number], [place] [address] 16 Jun, 2012 [facility] [place] [facility] [address] [id number] [place] [address] Jun, [facility] [address] [id number] [place] [address] Apr, [facility] [place] [facility] [address] [id number] [place] [address] Mar, [facility] [address] [id number] [place] [address] Mar, [facility] [address] [id number] [place] [address] Mar, [facility] [address] [id number] [place] [address] Mar, [facility] [address] [id number] [place] [address] Mar, [facility] [address] [id number] [place] [address] Feb, [facility] [address] [id number] [place] [address] Feb, [facility] [address] [id number] [place] [address] January, [facility] [address] [id number] [place] [address] January, [facility] [place] [facility] [address] [id number] [place] [address] Nov, [facility] [address] [id number] [place] [address] Nov, [facility] [place] [facility] [address] [id number] [place] [address] Nov, [facility] [place] [facility] [address] [id number] [place] [address] Nov, [facility] [place] [facility] [address] [id number] [place] [address] Nov, [facility] [place] [facility] [address] [id number] [place] [address] Oct, [facility] [place] [facility] [address] [id number] [place] [address] Jul, [facility] [place] [facility] [address] [id number] [place] [address] Jul, [facility] [place] [facility] [address] [id number] [place] [address] Jul, [facility] [place] [facility] [address] [id number] [place] [address] Jun, [facility] [place] [facility] [address] [id number] [place] [address] Jun, [facility] [place] [facility] [address] [id number] [place] [address] Dec, [facility] [place] [facility] [address] [id number] [place] [address] Aug, [facility] [place] [facility] [address] [id number] [place] [address] Aug, [facility] [place] [facility] [address] [id number], [place] [address] Jul, [facility] [place] [facility] [address] [id number], [place] [address] Jul, [facility] [place] [facility] [address] [id number], [place] [address] Jul, [facility] [place] [facility] [address] [id number] [place] [address] Jun, [facility] [place] [facility] [address] [id number], [place] [address] Jun, [facility] [place] [facility] [address] [id number] [place] [address] Jun, [facility] [place] [facility] [address] [id number] [place] [address] 15 May, 2010 [facility] [address] [facility] [id number] [place] [address] Feb, [facility] [address] [facility] [id number], [place] [address] January, IMMUNIZATIONS No Known Immunizations SOCIAL HISTORY Never Assessed REASON FOR VISIT [facility] f/u, out of Ativan refills, wants to d/c morphine-- Julita Pérez MA PLAN OF CARE Activity Details Follow Up 4 Weeks Reason:morphine withdrawal VITAL SIGNS Height 69 in 2017-05-26 Weight 219.3 lbs 2017-05-26 Heart Rate 72 bpm 2017-05-26 Respiratory Rate 20 2017-05-26 BMI 32.38 kg/m2 2017-05-26 Blood pressure systolic 150 mmHg 2017-05-26 Blood pressure diastolic 78 mmHg 2017-05-26 MEDICATIONS Medication Instructions Dosage Frequency Start Date End Date Duration Status Omeprazole 20 mg 1 capsule 24h Active Atorvastatin Calcium 20 mg Orally Once a day 1 tablet 24h 30 Active Levemir FlexTouch 100 UNIT/ML INJECT 60 UNITS SUBCUTANEOUSLY TWICE DAILY 25 Active Ativan 1 MG Orally Once a day, at night 1 tablet as needed May, Active BD Pen Needle Short U/F 31G X 8 MM SQ 5 times a day as directed May, Active Levemir FlexTouch 100 UNIT/ML Subcutaneous twice a day 60 units 12h daily Active NovoLog Flexpen 100 UNIT/ML Subcutaneous 3 times a day ac meals 40 units Active Doxepin HCl 100 mg Orally Once a day 1 capsule at bedtime 24h Apr, 30 day(s) Active MS Contin 15 MG Orally 2 times a day 1 tablet 12h Apr, May, 28 days Active Tizanidine HCl 4 MG Orally 2 times a day 1 tablet as needed 12h 30 Active RESULTS No Results PROCEDURES Procedure Date Ordered Result Body Site [facility] VISIT ESTABLISHED PATIENT May 26, 2017 INSTRUCTIONS MEDICATIONS ADMINISTERED No Known Medications [...]
--- OUTSIDE RECORDS SUMMARY | 2019-04-25 17:31 | XMS REPORT ---
Author Author MYRON LOCO Organization [facility] [place] Address [address] [place] [address] Care Team Providers Care Cash Application Representative Name Role Phone MYRON LOCO Unavailable PROBLEMS Type Condition ICD9-CM Code VZH22-KC Code Onset Dates Condition Status SNOMED Code Problem Primary insomnia F51.01 Active 463050203 Problem Hyperlipidemia, mixed E78.2 Active 597362298 Problem Hypertension, benign I10 Active 96139731 Problem Mood disorder F39 Active 94053987 Problem Precordial pain R07.2 Active 52882193 Problem Chronic obstructive pulmonary disease, unspecified COPD type J44.9 Active 96604438 Problem Depression, unspecified depression type F32.9 Active 26792075 Problem Neuropathy, diabetic E11.40 Active 323440371 Problem Cirrhosis of liver without ascites, unspecified hepatic cirrhosis type K74.60 Active 50229909 Problem Type 2 diabetes mellitus without complications E11.9 Active 067287139 ALLERGIES Substance Reaction Event Type Date Status Tylenol liver problems Drug Allergy Mar, Active Aspirin liver problems Drug Allergy Mar, Active ENCOUNTERS Encounter Location Date Diagnosis [place] [address] [address] Dec, [place] [address], [place] [address] Nov, [place] [address] [place] [id number] [place] [address] 15 Nov, 2017 Cirrhosis of liver without ascites, unspecified hepatic cirrhosis type K74.60 ; Type 2 diabetes mellitus without complications E11.9 and Precordial pain R07.2 [facility] [place] [address], [place] [address] 07 Nov, 2017 Cirrhosis of liver without ascites, unspecified hepatic cirrhosis type K74.60 [facility] [place] [address], [place] [address] Oct, [facility] [place] [id number] [place] [address] Oct, Cirrhosis of liver without ascites, unspecified hepatic cirrhosis type K74.60 ; Chronic obstructive pulmonary disease, unspecified COPD type J44.9 and Influenza-like illness R69 [facility] [place] [id number] [place] [address] Oct, [facility] [place] [id number] [place] [address] Oct, [facility] [place] [id number] [place] [address] Oct, Cirrhosis of liver without ascites, unspecified hepatic cirrhosis type K74.60 [facility] [place] [address] [id number] [place] [address] Sep, [facility] [place] [id number] [place] [address] Sep, Chronic obstructive pulmonary disease, unspecified COPD type J44.9 [facility] [place] [address] [id number] [place] [address] Sep, Cirrhosis of liver without ascites, unspecified hepatic cirrhosis type K74.60 and Chronic obstructive pulmonary disease, unspecified COPD type J44.9 [facility] [place] [address], [place] [address] Aug, [facility] [place] [address], [place] [address] Aug, Cirrhosis of liver without ascites, unspecified hepatic cirrhosis type K74.60 [facility] [place] [address], [place] [address] Aug, [facility] [place] [address], [place] [address] Aug, [facility] [place] [address] [place] [id number] [place] [address] Jul, [facility] [place] [id number] [place] [address] Jul, Diabetes E11.9 and Viral gastroenteritis A08.4 [facility] [place] [address] [id number] [place] [address] Jul, Cirrhosis of liver without ascites, unspecified hepatic cirrhosis type K74.60 and Chronic obstructive pulmonary disease, unspecified COPD type J44.9 [facility] [place] [address] [id number] [place] [address] Jul, [facility] [place] [address] [place] [id number] [place] [address] Jul, Cirrhosis of liver without ascites, unspecified hepatic cirrhosis type K74.60 [facility] [place] [address] [id number] [place] [address] Jul, [facility] [place] [address] [id number] [place] [address] Jul, [facility] [place] [id number] [place] [address] Jun, Cirrhosis of liver without ascites, unspecified hepatic cirrhosis type K74.60 and Viral gastroenteritis A08.4 [facility] [id number] [place] [address] Jun, Nausea and vomiting, intractability of vomiting not specified, unspecified vomiting type R11.2 ; Acute nonintractable headache, unspecified headache type R51 and History of encephalopathy Z86.69 [facility] [place] [address], [place] [address] Jun, [place] [address] [place] [id number] [place] [address] Jun, Neuropathy, diabetic E11.40 and Hypertension, benign I10 [facility] [place] [address] [place] [id number] [place] [address] Jun, [facility] [place] [address], [place] [address] Jun, [facility] [address] [place] [id number] [place] [id number] Jun, [facility] [place] [address] [place] [id number] [place] [address] Jun, [facility] [place] [address] [place] [id number] [place] [address] Jun, [facility] [place] [address] [place] [id number] [place] [address] Jun, Viral gastroenteritis A08.4 and Diabetes E11.9 [facility] [place] [address] [place] [id number] [place] [address] May, Lumbago with sciatica, left side M54.42 [facility] [place] [address] [place] [id number] [place] [address] 14 May, 2017 Lumbago with sciatica, left side M54.42 [facility] [place] [address] [place] [id number] [place] [address] May, [facility] [place] [address] [place] [id number] [place] [address] May, [facility] [place] [address] [place] [id number] [place] [address] Apr, Lumbago with sciatica, left side M54.42 ; Neuropathy, diabetic E11.40 and Mood disorder F39 [facility] [place] [id number] [place] [address] Apr, [facility] [place] [address] [place] [id number] [place] [address] Apr, [facility] [place] [id number] [place] [address] Mar, Other chronic pain G89.29 and Type 2 diabetes mellitus without complications E11.9 [facility] [place] [address], [place] [address] Mar, Other chronic pain G89.29 [facility] [place] [address] [place] [id number] [place] [address] Feb, Other chronic pain G89.29 [facility] [place] [address], [place] [address] January, Shoulder pain, left M25.512 and Other chronic pain G89.29 [facility] [place] [address] [place] [address] January, [facility] [place] [address] [place] [id number] [place] [address] January, Drug-induced erectile dysfunction N52.2 [place] [address] [place] [id number] [place] [address] January, Diabetes E11.9 [facility] [place] [address] [place] [id number] [place] [address] January, Diabetes E11.9 ; Chronic pain disorder G89.4 ; Lumbago with sciatica, left side M54.42 and Other acute postprocedural pain G89.18 [facility] [place] [address], [place] [address] Dec, Drug-induced erectile dysfunction N52.2 [place] [address], [place] [address] Nov, Drug-induced erectile dysfunction N52.2 [place] [address], [place] [address] Nov, Drug-induced erectile dysfunction N52.2 [facility] [place] [id number] [place] [address] Oct, Diabetes E11.9 [facility] [place] [address], [place] [address] Oct, Diabetes E11.9 ; Neuropathy, diabetic E11.40 and Drug-induced erectile dysfunction N52.2 [facility] [place] [address], [place] [address] Sep, [facility] [place] [address] [place] [id number] [place] [address] Aug, Diabetes type 2, controlled E11.9 [facility] [place] [address] [place] [id number] [place] [address] Aug, Diabetic mononeuropathy associated with type 2 diabetes mellitus E11.41 [facility] [place] [address] [place] [id number] [place] [address] Jul, [facility] [place] [address] [place] [id number] [place] [address] Jul, Primary insomnia F51.01 [facility] [place] [address] [place] [id number] [place] [address] Jun, [facility] [place] [address] [place] [id number] [place] [address] Jun, Diabetes E11.9 ; Primary insomnia F51.01 and Depression, unspecified depression type F32.9 [facility] [place] [address] [place] [id number] [place] [address] Jun, [facility] [place] [address] [place] [address] Jun, [facility] [place] [id number] [place] [address] May, [facility] [place] [address] [place] [address] May, Mood disorder F39 [facility] [place] [address] [address] Apr, [facility] [place] [address], [place] [address] Mar, Acute cystitis without hematuria N30.00 [facility] [place] [address], [place] [address] Feb, Diabetes E11.9 [facility] [place] [address] [place] [id number] [place] [address] January, [facility] [place] [address] [id number] [place] [address] January, [facility] [place] [address] [place] [id number] [place] [address] January, Acute cystitis without hematuria N30.00 ; 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 ; Fatigue, unspecified type R53.83 and Weight loss, abnormal R63.4 [facility] [place] [address] [place] [id number] [place] [address] January, [facility] [place] [address] [id number] [place] [address] Dec, [facility] [place] [address] [place] [id number] [place] [address] Nov, [facility] [place] [address] [place] [id number] [place] [address] Nov, Neuropathy, diabetic E11.40 [facility] [place] [address] [id number] [place] [address] Oct, Neuropathy, diabetic E11.40 [facility] [place] [id number] [place] [address] Oct, [facility] [place] [address], [place] [address] Oct, [facility] [place] [id number] [place] [address] Oct, [facility] [place] [address] [address] Aug, [facility] [place] [address], [place] [address] Aug, Type 2 diabetes mellitus with foot ulcer E11.621 ; Nausea R11.0 ; Other complications following infusion, transfusion and therapeutic injection, initial encounter T80.89XA ; Hyperlipidemia, mixed E78.2 and Nail ingrowing L60.0 [place] [address] [place] [id number] [place] [address] Jul, [place] [address] [place] [id number] [place] [address] Jul, Diabetes E11.9 [place] [address] [address] Jul, Type 2 diabetes mellitus with foot ulcer E11.621 and Non-pressure chronic ulcer of other part of left foot with unspecified severity L97.529 [place] [address] [place] [id number] [place] [address] Jun, Diabetes E11.9 ; Shoulder pain, left M25.512 ; Abdominal pain, lower R10.30 ; Hepatitis C, chronic B18.2 and Diabetes mellitus without mention of complication, type II or unspecified type, not stated as uncontrolled 250.00 [place] [address] [place] [id number] [place] [address] Jun, Cellulitis, abdominal wall L03.311 and Nocturnal hypoxemia G47.34 [place] [address] [place] [id number] [place] [address] Jun, Diabetes mellitus without mention of complication, type II or unspecified type, not stated as uncontrolled 250.00 [place] [address] [place] [id number] [place] [address] May, Diabetes mellitus without mention of complication, type II or unspecified type, not stated as uncontrolled 250.00 [place] [address] [place] [id number] [place] [address] May, Abdominal pain 789.00 [place] [address] [place] [id number] [place] [address] May, [place] [address] [place] [address] May, [facility] [place] [address], [place] [address] May, Diabetes mellitus without mention of complication, type II or unspecified type, not stated as uncontrolled 250.00 [facility] [place] [address], [place] [address] Apr, [facility] [place] [id number] [place] [address] Mar, [facility] [place] [address], [place] [address] Mar, Diabetes mellitus without mention of complication, type II or unspecified type, not stated as uncontrolled 250.00 [facility] [place] [address], [place] [address] Feb, Diabetes mellitus without mention of complication, type II or unspecified type, not stated as uncontrolled 250.00 and Chronic pain 338.29 [facility] [place] [address], [place] [address] Feb, [facility] [place] [address], [place] [address] January, Diabetes mellitus without mention of complication, type II or unspecified type, not stated as uncontrolled 250.00 and Chronic pain 338.29 [facility] [place] [address], [place] [address] January, [facility] [place] [address], [place] [address] Dec, [facility] [place] [address], [place] [address] Dec, [facility] [place] [address], [place] [address] Oct, [facility] [place] [address], [place] [address] Oct, [facility] [place] [facility] [address] [id number] [place] [address] Oct, 2014 [facility] [place] [facility] [address] [id number] [place] [address] Oct, 2014 [facility] [place] [facility] [address] [facility] [id number] [place] [address] Oct, 2014 [facility] [place] [facility] [address] [id number] [place] [address] Oct, 2014 [facility] [place] [facility] [address] [id number] [place] [address] Oct, 2014 [facility] [place] [facility] [address] [id number] [place] [address] Oct, 2014 [facility] [place] [facility] [address] [facility] [id number] [place] [address] Oct, 2014 [facility] [place] [facility] [address] [id number] [place] [address] Oct, 2014 [facility] [place] [facility] [address] [id number] [place] [address] Oct, 2014 [facility] [place] [facility] [address] [facility] [id number] [place] [address] Oct, 2014 [facility] [place] [facility] [address] [facility] [id number] [place] [address] Sep, [facility] [place] [facility] [address] [facility] [id number] [place] [address] Sep, [facility] [place] [facility] [address] [id number] [place] [address] Aug, [facility] [place] [facility] [address] [id number] [place] [address] Aug, [facility] [place] [facility] [address] [facility] [id number] [place] [address] Aug, [facility] [place] [facility] [address] [id number] [place] [address] Aug, [facility] [place] [facility] [address] [id number] [place] [address] Aug, [facility] [place] [facility] [address] [id number] [place] [address] Aug, [facility] [place] [facility] [address] [id number] [place] [address] Aug, [facility] [place] [facility] [address] [id number] [place] [address] Aug, [facility] [place] [facility] [address] [id number] [place] [address] Aug, [facility] [place] [facility] [address] [id number] [place] [address] Aug, [facility] [place] [facility] [address] [id number] [place] [address] Jul, [facility] [place] [facility] [address] [id number] [place] [address] Jul, [facility] [place] [facility] [address] [id number] [place] [address] Jun, [facility] [place] [facility] [address] [id number] [place] [address] Jun, [facility] [place] [facility] [address] [id number] [place] [address] Jun, [facility] [place] [facility] [address] [id number] [place] [address] Jun, [facility] [place] [facility] [address] [id number] [place] [address] Jun, [facility] [place] [facility] [address] [id number] [place] [address] Jun, [facility] [place] [facility] [address] [id number] [place] [address] Jun, [facility] [place] [facility] [address] [id number] [place] [address] 30 May, 2013 [facility] [place] [facility] [address] [id number] [place] [address] 30 May, 2013 [facility] [place] [facility] [address] [id number] [place] [address] 30 May, 2013 [facility] [place] [facility] [address] [id number] [place] [address] 30 May, 2013 [facility] [place] [facility] [address] [id number] [place] [address] May, 2013 [facility] [place] [facility] [address] [id number] [place] [address] May, 2013 [facility] [place] [facility] [address] [id number] [place] [address] May, 2013 [facility] [place] [facility] [address] [id number] [place] [address] May, 2013 [facility] [place] [facility] [address] [id number] [place] [address] 24 May, 2013 [facility] [place] [facility] [address] [id number] [place] [address] May, 2013 [facility] [place] [facility] [address] [id number] [place] [address] May, 2013 [facility] [place] [facility] [address] [id number] [address] May, 2013 [facility] [place] [facility] [address] [id number] [place] [address] May, 2013 [facility] [place] [facility] [address] [id number] [place] [address] Mar, [facility] [place] [facility] [address] [id number] [place] [address] Mar, [facility] [place] [facility] [address] [id number] [place] [address] Mar, [facility] [place] [facility] [address] [id number] [place] [address] Mar, [facility] [place] [facility] [address] [id number] [place] [address] Mar, [facility] [place] [facility] [address] [id number] [place] [address] Mar, [facility] [place] [facility] [address] [id number] [place] [address] Feb, [facility] [place] [facility] [address] [id number] [place] [address] Feb, [facility] [place] [facility] [address] [id number] [place] [address] Feb, [facility] [place] [facility] [address] [id number] [place] [address] Feb, [facility] [place] [facility] [address] [id number] [place] [address] Feb, [facility] [place] [facility] [address] [id number] [place] [address] Feb, [facility] [place] [facility] [address] [id number] [place] [address] Feb, [facility] [place] [facility] [address] [id number] [place] [address] Feb, [facility] [place] [facility] [address] [id number] [place] [address] Feb, [facility] [place] [facility] [address] [id number] [place] [address] January, [facility] [place] [facility] [address] [id number] [place] [address] January, [facility] [place] [facility] [address] [id number] [place] [address] Dec, [facility] [place] [facility] [address] [id number] [place] [address] 30 Dec, 2013 [facility] [place] [facility] [address] [id number] [place] [address] Dec, [facility] [place] [facility] [address] [id number] [place] [address] Dec, [facility] [place] [facility] [address] [id number] [place] [address] Nov, [facility] [place] [facility] [address] [id number] [place] [address] Nov, [facility] [place] [facility] [address] [id number] [place] [address] Nov, [facility] [place] [facility] [address] [id number] [place] [address] Nov, [facility] [place] [facility] [address] [id number] [place] [address] Nov, [facility] [place] [facility] [address] [id number] [place] [address] Nov, [facility] [place] [facility] [address] [id number] [place] [address] Nov, [facility] [place] [facility] [address] [id number] [place] [address] Nov, [facility] [place] [facility] [address] [id number] [place] [address] Nov, [facility] [place] [facility] [address] [id number] [place] [address] Nov, [facility] [place] [facility] [address] [id number] [place] [address] Oct, [facility] [place] [facility] [address] [id number] [place] [address] Oct, [facility] [place] [facility] [address] [id number] [place] [address] Sep, [facility] [place] [facility] [address] [id number] [place] [address] Sep, [facility] [place] [facility] [address] [id number] [place] [address] Sep, [facility] [place] [facility] [address] [id number] [place] [address] Aug, [facility] [place] [facility] [address] [id number] [place] [address] Aug, [facility] [place] [facility] [address] [id number] [place] [address] Aug, [facility] [place] [facility] [address] [id number] [place] [address] Aug, [facility] [place] [facility] [address] [id number] [place] [address] Jul, [facility] [place] [facility] [address] [id number] [place] [address] Jul, [facility] [place] [facility] [address] [id number] [place] [address] Jul, [facility] [place] [facility] [address] [id number] [place] [address] Jul, [facility] [place] [facility] [address] [id number], [place] [address] Jun, [facility] [place] [facility] [address] [id number], [place] [address] Jun, [facility] [place] [facility] [address] [id number] [place] [address] Jun, [facility] [place] [facility] [address] [id number] [place] [address] Jun, [facility] [place] [facility] [address] [id number] [place] [address] 16 Jun, 2013 [facility] [place] [facility] [address] [id number] [place] [address] 16 Jun, 2013 [facility] [address] [id number] [place] [address] Jun, [facility] [place] [facility] [address] [id number] [place] [address] Jun, [facility] [address] [id number] [place] [address] May, [facility] [address] [id number] [place] [address] Apr, [facility] [address] [id number] [place] [address] Mar, [facility] [address] [id number] [place] [address] Mar, [facility] [address] [id number] [place] [address] Feb, [facility] [address] [id number] [place] [address] Feb, [facility] [address] [id number] [place] [address] Feb, [facility] [address] [id number] [place] [address] Dec, [facility] [place] [facility] [address] [id number] [place] [address] Dec, [facility] [address] [id number] [place] [address] Dec, [facility] [place] [facility] [address] [id number] [place] [address] Nov, [facility] [place] [facility] [address] [id number] [place] [address] Oct, [facility] [place] [facility] [address] [id number] [place] [address] Oct, [facility] [address] [id number] [place] [address] Oct, [facility] [place] [facility] [address] [id number] [place] [address] 08 Oct, 2012 [facility] [place] [facility] [address] [id number] [place] [address] Sep, [facility] [place] [facility] [address] [id number] [place] [address] Sep, [facility] [address] [id number] [place] [address] Aug, [facility] [place] [facility] [address] [id number] [place] [address] Aug, [facility] [place] [facility] [address] [id number] [place] [address] Aug, [facility] [place] [facility] [address] [id number] [place] [address] Aug, [facility] [place] [facility] [address] [id number] [place] [address] Aug, [facility] [place] [facility] [address] [id number] [place] [address] Aug, [facility] [place] [facility] [address] [id number] [place] [address] 18 Aug, 2012 [facility] [place] [facility] [address] [id number] [place] [address] 18 Aug, 2012 [facility] [place] [facility] [address] [id number] [place] [address] 14 Aug, 2012 [facility] [place] [facility] [address] [id number] [place] [address] 14 Aug, 2012 [facility] [place] [facility] [address] [id number] [place] [address] 10 Aug, 2012 [facility] [place] [facility] [address] [id number] [place] [address] Aug, [facility] [place] [facility] [address] [id number] [place] [address] Jul, [facility] [place] [facility] [address] [id number] [place] [address] Jul, [facility] [place] [facility] [address] [id number] [place] [address] Jul, [facility] [place] [facility] [address] [id number] [place] [address] Jul, [facility] [place] [facility] [address] [id number] [place] [address] Jul, [facility] [place] [facility] [address] [id number] [place] [address] Jul, [facility] [place] [facility] [address] [facility] [id number] [place] [address] Jul, [facility] [place] [facility] [address] [id number] [place] [address] Jul, [facility] [place] [facility] [address] [id number] [place] [address] Jul, [facility] [place] [facility] [address] [facility] [id number] [place] [address] Jul, [facility] [place] [facility] [address] [id number] [place] [address] Jun, [facility] [place] [facility] [address] [id number], [place] [address] Jun, [facility] [place] [facility] [address] [id number] [place] [address] Jun, [facility] [place] [facility] [address] [facility] [id number] [place] [address] Jun, [facility] [place] [facility] [address] [id number], [place] [address] Apr, [facility] [place] [facility] [address] [id number] [place] [address] Mar, [facility] [place] [facility] [address] [id number] [place] [address] Mar, [facility] [place] [facility] [address] [id number] [place] [address] Mar, [facility] [place] [facility] [address] [id number] [place] [address] Mar, [facility] [address] [id number] [place] [address] Mar, [facility] [place] [facility] [address] [id number] [place] [address] Feb, [facility] [place] [facility] [address] [id number] [place] [address] Feb, [facility] [address] [id number] [place] [address] January, [facility] [place] [facility] [address] [id number] [place] [address] January, [facility] [place] [facility] [address] [id number] [place] [address] Nov, [facility] [place] [facility] [address] [id number] [place] [address] Nov, [facility] [place] [facility] [address] [id number] [place] [address] Nov, [facility] [place] [facility] [address] [id number] [place] [address] Nov, [facility] [place] [facility] [address] [id number] [place] [address] Nov, [facility] [place] [facility] [address] [id number] [place] [address] Oct, [facility] [place] [facility] [address] [id number], [place] [address] Jul, [facility] [place] [facility] [address] [id number] [place] [address] Jul, [facility] [place] [facility] [address] [id number] [place] [address] Jul, [facility] [place] [facility] [address] [id number] [place] [address] 24 Jun, 2011 [facility] [place] [facility] [address] [id number] [place] [address] Jun, [facility] [place] [facility] [address] [id number] [place] [address] Dec, [facility] [place] [facility] [address] [id number] [place] [address] Aug, [facility] [place] [facility] [address] [id number] [place] [address] Aug, [facility] [place] [facility] [address] [id number] [place] [address] Jul, [facility] [place] [facility] [address] [id number] [place] [address] Jul, [facility] [place] [facility] [address] [id number] [place] [address] Jul, [facility] [place] [facility] [address] [id number], [place] [address] 25 Jun, 2010 [facility] [place] [facility] [address] [id number], [place] [address] 13 Jun, 2010 [facility] [place] [facility] [address] [id number] [place] [address] Jun, [facility] [place] [facility] [address] [id number], [place] [address] 15 May, 2010 [facility] [place] [facility] [address] [id number] [place] [address] 15 Feb, 2010 [facility] [place] [facility] [address] [facility] [id number] [place] [address] January, IMMUNIZATIONS No Known Immunizations SOCIAL HISTORY Never Assessed REASON FOR VISIT hit with tree branch 1 month ago. Had a doctor friend look at it and said it wa s bruised and possible small fracture. , Diabetes follow up. , Constipation. Maisha Gold [place] PLAN OF CARE VITAL SIGNS Height 69 in 2017-04-28 Weight 217 lbs 2017-04-28 Temperature 98.4 degrees Fahrenheit 2017-04-28 Heart Rate 72 bpm 2017-04-28 Respiratory Rate 18 2017-04-28 BMI 32.04 kg/m2 2017-04-28 Blood pressure systolic 120 mmHg 2017-04-28 Blood pressure diastolic 80 mmHg 2017-04-28 MEDICATIONS Medication Instructions Dosage Frequency Start Date End Date Duration Status NovoLog Flexpen 100 UNIT/ML Subcutaneous 3 times a day ac meals 40 units Active Viagra 100 mg Orally Once a day 1 tablet as needed 24h Oct, Active BD Pen Needle Short U/F 31G X 8 MM SQ 5 times a day as directed May, Active Levemir FlexTouch 100 UNIT/ML Subcutaneous twice a day 60 units 12h daily Active Colace 100 MG Orally Once a day 1 capsule as needed 24h Mar, Apr, 30 day(s) Active Ativan 1 MG Orally Once a day, at night 1 tablet as needed May, Active MS Contin 30 MG Orally every 12 hrs 1 tablet 12h Mar, 28 days Active Tizanidine HCl 4 MG Orally 2 times a day 1 tablet as needed 12h 30 days Active Fluoxetine HCl 20 mg 1 capsule in the morning 24h 30 Active Atorvastatin Calcium 20 mg Orally Once a day 1 tablet 24h 30 Active Omeprazole 20 mg 1 capsule 24h Active RESULTS No Results PROCEDURES Procedure Date Ordered Result Body Site No Charge April 28, 2017 [facility] VISIT ESTABLISHED PATIENT April 28, 2017 INSTRUCTIONS MEDICATIONS ADMINISTERED No Known Medications [...]
[2019-04-25 17:32] LABS: INR 1.1 (0.8-1.4); PROTHROMBIN TIME PATIENT 14.9 SEC (12.2-14.7)
--- OUTSIDE RECORDS SUMMARY | 2019-04-25 17:33 | XMS REPORT | Continuity of Care Document ---
Author Organization Unknown Address Unknown Phone Unavailable Allergies Active Description Code Type Severity Reaction Onset Reported/Identified Relationship to Patient Clinical Status Yes NKANo Known Allergies NKA Miscellaneous Allergy Unknown N/A 01/15/2007 Yes acetaminophen [id number] Drug Allergy Unknown N/A 07/07/2017 Yes aspirin [id number] Drug Allergy Unknown N/A 07/07/2017 Yes acetaminophen [id number] Drug Allergy Unknown told not to mathew 09/09/2017 Medications There is no data. Problems Date Dx Coded Attending Type Code Diagnosis Diagnosed By 02/06/2010 250.00 DIABETES MELLITUS TYPE 2 02/06/2010 250.60 DIABETES WITH NEUROLOGICAL MANIFESTATIONS, TYPE II OR UNSPECIFIED TYPE, NOT STATED UNCONTROLLED 02/06/2010 MYRON LOCO APRN 250.00 DIABETES MELLITUS TYPE 2 02/06/2010 MYRON LOCO APRN 250.60 DIABETES WITH NEUROLOGICAL MANIFESTATIONS, TYPE II OR UNSPECIFIED TYPE, NOT STATED UNCONTROLLED 02/06/2010 250.00 DIABETES MELLITUS TYPE 2 02/06/2010 250.60 DIABETES WITH NEUROLOGICAL MANIFESTATIONS, TYPE II OR UNSPECIFIED TYPE, NOT STATED UNCONTROLLED 02/06/2010 250.00 DIABETES MELLITUS TYPE 2 02/06/2010 250.60 DIABETES WITH NEUROLOGICAL MANIFESTATIONS, TYPE II OR UNSPECIFIED TYPE, NOT STATED UNCONTROLLED 02/06/2010 MYRON LOCO APRN 250.00 DIABETES MELLITUS TYPE 2 02/06/2010 MYRON LOCO APRN 250.60 DIABETES WITH NEUROLOGICAL MANIFESTATIONS, TYPE II OR UNSPECIFIED TYPE, NOT STATED UNCONTROLLED 02/06/2010 250.00 DIABETES MELLITUS TYPE 2 02/06/2010 250.60 DIABETES WITH NEUROLOGICAL MANIFESTATIONS, TYPE II OR UNSPECIFIED TYPE, NOT STATED UNCONTROLLED 02/06/2010 250.00 DIABETES MELLITUS TYPE 2 02/06/2010 250.60 DIABETES WITH NEUROLOGICAL MANIFESTATIONS, TYPE II OR UNSPECIFIED TYPE, NOT STATED UNCONTROLLED 02/06/2010 MYRON LOCO APRN 250.00 DIABETES MELLITUS TYPE 2 02/06/2010 MYRON LOCO APRN 250.60 DIABETES WITH NEUROLOGICAL MANIFESTATIONS, TYPE II OR UNSPECIFIED TYPE, NOT STATED UNCONTROLLED 02/06/2010 250.00 DIABETES MELLITUS TYPE 2 02/06/2010 250.60 DIABETES WITH NEUROLOGICAL MANIFESTATIONS, TYPE II OR UNSPECIFIED TYPE, NOT STATED UNCONTROLLED 02/06/2010 250.00 DIABETES MELLITUS TYPE 2 02/06/2010 250.60 DIABETES WITH NEUROLOGICAL MANIFESTATIONS, TYPE II OR UNSPECIFIED TYPE, NOT STATED UNCONTROLLED 02/06/2010 MYRON LOCO APRN 250.00 DIABETES MELLITUS TYPE 2 02/06/2010 MYRON LOCO APRN 250.60 DIABETES WITH NEUROLOGICAL MANIFESTATIONS, TYPE II OR UNSPECIFIED TYPE, NOT STATED UNCONTROLLED 02/06/2010 MYRON LOCO APRN 250.00 DIABETES MELLITUS TYPE 2 02/06/2010 MYRON LOCO APRN T 250.60 DIABETES WITH NEUROLOGICAL MANIFESTATIONS, TYPE II OR UNSPECIFIED TYPE, NOT STATED UNCONTROLLED 02/06/2010 MYRON LOCO APRN T 250.00 DIABETES MELLITUS TYPE 2 02/06/2010 MYRON LOCO APRN T 250.60 DIABETES WITH NEUROLOGICAL MANIFESTATIONS, TYPE II OR UNSPECIFIED TYPE, NOT STATED UNCONTROLLED 02/06/2010 MYRON LOCO APRN 250.00 DIABETES MELLITUS TYPE 2 02/06/2010 MYRON LOCO APRN T 250.60 DIABETES WITH NEUROLOGICAL MANIFESTATIONS, TYPE II OR UNSPECIFIED TYPE, NOT STATED UNCONTROLLED 02/06/2010 MYRON LOCO APRN T 250.00 DIABETES MELLITUS TYPE 2 02/06/2010 MYRON LOCO APRN T 250.60 DIABETES WITH NEUROLOGICAL MANIFESTATIONS, TYPE II OR UNSPECIFIED TYPE, NOT STATED UNCONTROLLED 02/06/2010 MYRON LOCO APRN T 250.00 DIABETES MELLITUS TYPE 2 02/06/2010 MYRON LOCO APRN T 250.60 DIABETES WITH NEUROLOGICAL MANIFESTATIONS, TYPE II OR UNSPECIFIED TYPE, NOT STATED UNCONTROLLED 02/06/2010 MYRON LOCO APRN T 250.00 DIABETES MELLITUS TYPE 2 02/06/2010 MYRON LOCO APRN T 250.60 DIABETES WITH NEUROLOGICAL MANIFESTATIONS, TYPE II OR UNSPECIFIED TYPE, NOT STATED UNCONTROLLED 02/06/2010 MYRON LOCO APRN T 250.00 DIABETES MELLITUS TYPE 2 02/06/2010 MYRON LOCO APRN T 250.60 DIABETES WITH NEUROLOGICAL MANIFESTATIONS, TYPE II OR UNSPECIFIED TYPE, NOT STATED UNCONTROLLED 02/06/2010 DENICE MEDINA DO 250.00 DIABETES MELLITUS TYPE 2 02/06/2010 DENICE MEDINA DO 250.60 DIABETES WITH NEUROLOGICAL MANIFESTATIONS, TYPE II OR UNSPECIFIED TYPE, NOT STATED UNCONTROLLED 02/06/2010 MYRON LOCO APRN T 250.00 DIABETES MELLITUS TYPE 2 02/06/2010 MYRON LOCO APRN T 250.60 DIABETES WITH NEUROLOGICAL MANIFESTATIONS, TYPE II OR UNSPECIFIED TYPE, NOT STATED UNCONTROLLED 02/06/2010 MYRON LOCO APRN T 250.00 DIABETES MELLITUS TYPE 2 02/06/2010 MYRON LOCO APRN T 250.60 DIABETES WITH NEUROLOGICAL MANIFESTATIONS, TYPE II OR UNSPECIFIED TYPE, NOT STATED UNCONTROLLED 02/06/2010 MYRON LOCO APRN T 250.00 DIABETES MELLITUS TYPE 2 02/06/2010 MYRON LOCO APRN T 250.60 DIABETES WITH NEUROLOGICAL MANIFESTATIONS, TYPE II OR UNSPECIFIED TYPE, NOT STATED UNCONTROLLED 02/06/2010 MYRON LOCO APRN T 250.00 DIABETES MELLITUS TYPE 2 02/06/2010 MYRON LOCO APRN T 250.60 DIABETES WITH NEUROLOGICAL MANIFESTATIONS, TYPE II OR UNSPECIFIED TYPE, NOT STATED UNCONTROLLED 02/06/2010 MYRON LOCO APRN T 250.00 DIABETES MELLITUS TYPE 2 02/06/2010 MYRON LOCO APRN T 250.60 DIABETES WITH NEUROLOGICAL MANIFESTATIONS, TYPE II OR UNSPECIFIED TYPE, NOT STATED UNCONTROLLED 02/06/2010 MYRON LOCO APRN T 250.00 DIABETES MELLITUS TYPE 2 02/06/2010 MYRON LOCO APRN T 250.60 DIABETES WITH NEUROLOGICAL MANIFESTATIONS, TYPE II OR UNSPECIFIED TYPE, NOT STATED UNCONTROLLED 02/06/2010 MYRON LOCO APRN T 250.00 DIABETES MELLITUS TYPE 2 02/06/2010 MYRON LOCO APRN T 250.60 DIABETES WITH NEUROLOGICAL MANIFESTATIONS, TYPE II OR UNSPECIFIED TYPE, NOT STATED UNCONTROLLED 02/06/2010 MYRON LOCO APRN T 250.00 DIABETES MELLITUS TYPE 2 02/06/2010 MYRON LOCO APRN T 250.60 DIABETES WITH NEUROLOGICAL MANIFESTATIONS, TYPE II OR UNSPECIFIED TYPE, NOT STATED UNCONTROLLED 02/06/2010 MYRON LOCO APRN T 250.00 DIABETES MELLITUS TYPE 2 02/06/2010 MYRON LOCO APRN T 250.60 DIABETES WITH NEUROLOGICAL MANIFESTATIONS, TYPE II OR UNSPECIFIED TYPE, NOT STATED UNCONTROLLED 02/06/2010 MYRON LOCO APRN T 250.00 DIABETES MELLITUS TYPE 2 02/06/2010 MYRON LOCO APRN T 250.60 DIABETES WITH NEUROLOGICAL MANIFESTATIONS, TYPE II OR UNSPECIFIED TYPE, NOT STATED UNCONTROLLED 02/06/2010 MYRON LOCO APRN 250.00 DIABETES MELLITUS TYPE 2 02/06/2010 MYRON LOCO APRN T 250.60 DIABETES WITH NEUROLOGICAL MANIFESTATIONS, TYPE II OR UNSPECIFIED TYPE, NOT STATED UNCONTROLLED 02/06/2010 MYRON LOCO APRN 250.00 DIABETES MELLITUS TYPE 2 02/06/2010 MYRON LOCO APRN 250.60 DIABETES WITH NEUROLOGICAL MANIFESTATIONS, TYPE II OR UNSPECIFIED TYPE, NOT STATED UNCONTROLLED 02/06/2010 MYRON LOCO APRN 250.00 DIABETES MELLITUS TYPE 2 02/06/2010 MYRON LOCO APRN 250.60 DIABETES WITH NEUROLOGICAL MANIFESTATIONS, TYPE II OR UNSPECIFIED TYPE, NOT STATED UNCONTROLLED 02/06/2010 MYRON LOCO APRN 250.00 DIABETES MELLITUS TYPE 2 02/06/2010 MYRON LOCO APRN 250.60 DIABETES WITH NEUROLOGICAL MANIFESTATIONS, TYPE II OR UNSPECIFIED TYPE, NOT STATED UNCONTROLLED 03/13/2010 786.2 COUGH 03/13/2010 787.1 HEARTBURN 03/13/2010 MYRON LOCO APRN 786.2 COUGH 03/13/2010 MYRON LOCO APRN 787.1 HEARTBURN 03/13/2010 786.2 COUGH 03/13/2010 787.1 HEARTBURN 03/13/2010 786.2 COUGH 03/13/2010 787.1 HEARTBURN 03/13/2010 MYRON LOCO APRN 786.2 COUGH 03/13/2010 MYRON LOCO APRN 787.1 HEARTBURN 03/13/2010 786.2 COUGH 03/13/2010 787.1 HEARTBURN 03/13/2010 786.2 COUGH 03/13/2010 787.1 HEARTBURN 03/13/2010 MYRON LOCO APRN 786.2 COUGH 03/13/2010 MYRON LOCO APRN 787.1 HEARTBURN 03/13/2010 786.2 COUGH 03/13/2010 787.1 HEARTBURN 03/13/2010 786.2 COUGH 03/13/2010 787.1 HEARTBURN 03/13/2010 MYRON LOCO APRN 786.2 COUGH 03/13/2010 MYRON LOCO APRN 787.1 HEARTBURN 03/13/2010 MYRON LOCO APRN 786.2 COUGH 03/13/2010 MYRON LOCO APRN 787.1 HEARTBURN 03/13/2010 MYRON LOCO APRN 786.2 COUGH 03/13/2010 MYRON LOCO APRN T 787.1 HEARTBURN 03/13/2010 MYRON LOCO APRN T 786.2 COUGH 03/13/2010 MYRON LOCO APRN T 787.1 HEARTBURN 03/13/2010 MYRON LOCO APRN T 786.2 COUGH 03/13/2010 MYRON LOCO APRN T 787.1 HEARTBURN 03/13/2010 MYRON LOCO APRN T 786.2 COUGH 03/13/2010 MYRON LOCO APRN T 787.1 HEARTBURN 03/13/2010 MYRON LOCO APRN T 786.2 COUGH 03/13/2010 MYRON LOCO APRN T 787.1 HEARTBURN 03/13/2010 MYRON LOCO APRN T 786.2 COUGH 03/13/2010 MYRON LOCO APRN T 787.1 HEARTBURN 03/13/2010 MEDINA DO, DENICE K 786.2 COUGH 03/13/2010 MEDINA DO, DENICE K 787.1 HEARTBURN 03/13/2010 MYRON LOCO APRN T 786.2 COUGH 03/13/2010 MYRON LOCO APRN T 787.1 HEARTBURN 03/13/2010 MYRON LOCO APRN T 786.2 COUGH 03/13/2010 MYRON LOCO APRN T 787.1 HEARTBURN 03/13/2010 MYRON LOCO APRN T 786.2 COUGH 03/13/2010 MYRON LOCO APRN T 787.1 HEARTBURN 03/13/2010 MYRON LOCO APRN T 786.2 COUGH 03/13/2010 MYRON LOCO APRN T 787.1 HEARTBURN 03/13/2010 MYRON LOCO APRN T 786.2 COUGH 03/13/2010 MYRON LOCO APRN T 787.1 HEARTBURN 03/13/2010 MYORN LOCO APRN T 786.2 COUGH 03/13/2010 MYRON LOCO APRN T 787.1 HEARTBURN 03/13/2010 MYRON LOCO APRN T 786.2 COUGH 03/13/2010 MYRON LOCO APRN T 787.1 HEARTBURN 03/13/2010 MYRON LOCO APRN T 786.2 COUGH 03/13/2010 MYRON LOCO APRN T 787.1 HEARTBURN 03/13/2010 MYRON LOCO APRN T 786.2 COUGH 03/13/2010 MYRON LOCO APRN T 787.1 HEARTBURN 03/13/2010 MYRON LOCO APRN 786.2 COUGH 03/13/2010 MYRON LOCO APRN 787.1 HEARTBURN 03/13/2010 MYRON LOCO APRN 786.2 COUGH 03/13/2010 MYRON LOCO APRN 787.1 HEARTBURN 03/13/2010 MYRON LOCO APRN 786.2 COUGH 03/13/2010 MYRON LOCO APRN 787.1 HEARTBURN 03/13/2010 MYRON LOCO APRN 786.2 COUGH 03/13/2010 MYRON LOCO APRN 787.1 HEARTBURN 03/13/2010 MYRON LOCO APRN 786.2 COUGH 03/13/2010 MYRON LOCO APRN 787.1 HEARTBURN 06/13/2010 250.02 DIABETES MELLITUS POORLY CONTROLLED 06/13/2010 MYRON LOCO APRN 250.02 DIABETES MELLITUS POORLY CONTROLLED 06/13/2010 250.02 DIABETES MELLITUS POORLY CONTROLLED 06/13/2010 250.02 DIABETES MELLITUS POORLY CONTROLLED 06/13/2010 MYRON LOCO APRN 250.02 DIABETES MELLITUS POORLY CONTROLLED 06/13/2010 250.02 DIABETES MELLITUS POORLY CONTROLLED 06/13/2010 250.02 DIABETES MELLITUS POORLY CONTROLLED 06/13/2010 MYRON LOCO APRN 250.02 DIABETES MELLITUS POORLY CONTROLLED 06/13/2010 250.02 DIABETES MELLITUS POORLY CONTROLLED 06/13/2010 250.02 DIABETES MELLITUS POORLY CONTROLLED 06/13/2010 MYRON LOCO APRN 250.02 DIABETES MELLITUS POORLY CONTROLLED 06/13/2010 MYRON LOCO APRN 250.02 DIABETES MELLITUS POORLY CONTROLLED 06/13/2010 MYRON LOCO APRN 250.02 DIABETES MELLITUS POORLY CONTROLLED 06/13/2010 MYRON LOCO APRN 250.02 DIABETES MELLITUS POORLY CONTROLLED 06/13/2010 MYRON LOCO APRN 250.02 DIABETES MELLITUS POORLY CONTROLLED 06/13/2010 MYRON LOCO APRN 250.02 DIABETES MELLITUS POORLY CONTROLLED 06/13/2010 MYRON LOCO APRN 250.02 DIABETES MELLITUS POORLY CONTROLLED 06/13/2010 MYRON LOCO APRN 250.02 DIABETES MELLITUS POORLY CONTROLLED 06/13/2010 DENICE MEDINA DO 250.02 DIABETES MELLITUS POORLY CONTROLLED 06/13/2010 MYRON LOCO APRN 250.02 DIABETES MELLITUS POORLY CONTROLLED 06/13/2010 MYRON LOCO APRN 250.02 DIABETES MELLITUS POORLY CONTROLLED 06/13/2010 CLAUDY MOLD FILLING OPERATOR, MYRON T 250.02 DIABETES MELLITUS POORLY CONTROLLED 06/13/2010 CLAUDY MOLD FILLING OPERATOR, MYRON T 250.02 DIABETES MELLITUS POORLY CONTROLLED 06/13/2010 CLAUDY MOLD FILLING OPERATOR, MYRON T 250.02 DIABETES MELLITUS POORLY CONTROLLED 06/13/2010 CLAUDY MOLD FILLING OPERATOR, MYRON T 250.02 DIABETES MELLITUS POORLY CONTROLLED 06/13/2010 CLAUDY MOLD FILLING OPERATOR, MYRON T 250.02 DIABETES MELLITUS POORLY CONTROLLED 06/13/2010 CLAUDY MOLD FILLING OPERATOR, MYRON T 250.02 DIABETES MELLITUS POORLY CONTROLLED 06/13/2010 CLAUDY MOLD FILLING OPERATOR, MYRON T 250.02 DIABETES MELLITUS POORLY CONTROLLED 06/13/2010 CLAUDY MOLD FILLING OPERATOR, MYRON T 250.02 DIABETES MELLITUS POORLY CONTROLLED 06/13/2010 CLAUDY MOLD FILLING OPERATOR, MYRON T 250.02 DIABETES MELLITUS POORLY CONTROLLED 06/13/2010 CLAUDY MOLD FILLING OPERATOR, MYRON T 250.02 DIABETES MELLITUS POORLY CONTROLLED 06/13/2010 CLAUDY MOLD FILLING OPERATOR, MYRON T 250.02 DIABETES MELLITUS POORLY CONTROLLED 06/13/2010 CLAUDY MOLD FILLING OPERATOR, MYRON T 250.02 DIABETES MELLITUS POORLY CONTROLLED 03/25/2011 782.1 RASH 03/25/2011 CLAUDY BOSTONNMYRON T 782.1 RASH 03/25/2011 782.1 RASH 03/25/2011 782.1 RASH 03/25/2011 CLAUDY MOLD FILLING OPERATORMYRON T 782.1 RASH 03/25/2011 782.1 RASH 03/25/2011 782.1 RASH 03/25/2011 CLAUDY BOSTONNMYRON T 782.1 RASH 03/25/2011 782.1 RASH 03/25/2011 782.1 RASH 03/25/2011 MYRON LOCO APRN T 782.1 RASH 03/25/2011 CLAUDY BOSTONNMYRON T 782.1 RASH 03/25/2011 CLAUDY BOSTONNMYRON T 782.1 RASH 03/25/2011 CLAUDY BOSTONNMYRON T 782.1 RASH 03/25/2011 CLAUDY BOSTONNMYRON T 782.1 RASH 03/25/2011 CLAUDY BOSTONNMYRON T 782.1 RASH 03/25/2011 CLAUDY BOSTONNMYRON T 782.1 RASH 03/25/2011 MYRON LOCO APRN T 782.1 RASH 03/25/2011 DENICE MEDINA DO 782.1 RASH 03/25/2011 MYRON LOCO APRN T 782.1 RASH 03/25/2011 MYRON LOCO APRN T 782.1 RASH 03/25/2011 CLAUDY MOLD FILLING OPERATOR, MYRON T 782.1 RASH 03/25/2011 CLAUDY MOLD FILLING OPERATOR, MYRON T 782.1 RASH 03/25/2011 CLAUDY MOLD FILLING OPERATOR, MYRON T 782.1 RASH 03/25/2011 CLAUDY MOLD FILLING OPERATOR, MYRON T 782.1 RASH 03/25/2011 CLAUDY MOLD FILLING OPERATOR, MYRON T 782.1 RASH 03/25/2011 CLAUDY MOLD FILLING OPERATOR, MYRON T 782.1 RASH 03/25/2011 CLAUDY MOLD FILLING OPERATOR, MYRON T 782.1 RASH 03/25/2011 CLAUDY MOLD FILLING OPERATOR, MYRON T 782.1 RASH 03/25/2011 CLAUDY MOLD FILLING OPERATOR, MYRON T 782.1 RASH 03/25/2011 CLAUDY MOLD FILLING OPERATOR, MYRON T 782.1 RASH 03/25/2011 CLAUDY MOLD FILLING OPERATOR, MYRON T 782.1 RASH 03/25/2011 CLAUDY MOLD FILLING OPERATOR, MYRON T 782.1 RASH 11/08/2011 477.9 RHINITIS 11/08/2011 MYRON LOCO APRN T 477.9 RHINITIS 11/08/2011 477.9 RHINITIS 11/08/2011 477.9 RHINITIS 11/08/2011 CLAUDY MOLD FILLING OPERATORMYRON T 477.9 RHINITIS 11/08/2011 477.9 RHINITIS 11/08/2011 477.9 RHINITIS 11/08/2011 CLAUDY MOLD FILLING OPERATORMYRON T 477.9 RHINITIS 11/08/2011 477.9 RHINITIS 11/08/2011 477.9 RHINITIS 11/08/2011 CLAUDY MOLD FILLING OPERATORMYRON T 477.9 RHINITIS 11/08/2011 MYRON LOCO APRN T 477.9 RHINITIS 11/08/2011 CLAUDY BOSTONNMYRON T 477.9 RHINITIS 11/08/2011 CLAUDY MOLD FILLING OPERATORMYRON T 477.9 RHINITIS 11/08/2011 CLAUDY MOLD FILLING OPERATORMYRON T 477.9 RHINITIS 11/08/2011 CLAUDY MOLD FILLING OPERATORMYRON T 477.9 RHINITIS 11/08/2011 CLAUDY MOLD FILLING OPERATORMYRON T 477.9 RHINITIS 11/08/2011 CLAUDY MOLD FILLING OPERATORMYRON T 477.9 RHINITIS 11/08/2011 DENICE MEDINA DO 477.9 RHINITIS 11/08/2011 CLAUDY MOLD FILLING OPERATORMYRON T 477.9 RHINITIS 11/08/2011 CLAUDY BOSTONNMYRON T 477.9 RHINITIS 11/08/2011 CLAUDY ECHOMYRON T 477.9 RHINITIS 11/08/2011 CLAUDY BOSTONNMYRON T 477.9 RHINITIS 11/08/2011 CLAUDY BOSTONN, MYRON T 477.9 RHINITIS 11/08/2011 CLAUDY MOLD FILLING OPERATOR, MYRON T 477.9 RHINITIS 11/08/2011 CLAUDY MOLD FILLING OPERATOR, MYRON T 477.9 RHINITIS 11/08/2011 CLAUDY MOLD FILLING OPERATOR, MYRON T 477.9 RHINITIS 11/08/2011 CLAUDY MOLD FILLING OPERATORMYRON T 477.9 RHINITIS 11/08/2011 CLAUDY MOLD FILLING OPERATOR, MYRON T 477.9 RHINITIS 11/08/2011 CLAUDY MOLD FILLING OPERATOR, MYRON T 477.9 RHINITIS 11/08/2011 CLAUDY MOLD FILLING OPERATOR, MYRON T 477.9 RHINITIS 11/08/2011 CLAUDY BOSTONNMYRON T 477.9 RHINITIS 11/08/2011 CLAUDY BOSTONNMYRON 477.9 RHINITIS 12/05/2011 924.5 CONTUSION OF UNSPECIFIED PART OF LOWER LIMB 12/05/2011 MYRON LOCO APRN 924.5 CONTUSION OF UNSPECIFIED PART OF LOWER LIMB 12/05/2011 924.5 CONTUSION OF UNSPECIFIED PART OF LOWER LIMB 12/05/2011 924.5 CONTUSION OF UNSPECIFIED PART OF LOWER LIMB 12/05/2011 MYRON LOCO APRN 924.5 CONTUSION OF UNSPECIFIED PART OF LOWER LIMB 12/05/2011 924.5 CONTUSION OF UNSPECIFIED PART OF LOWER LIMB 12/05/2011 924.5 Contusion Of Unspecified Part Of Lower Limb 12/05/2011 MYRON LOCO APRN 924.5 Contusion Of Unspecified Part Of Lower Limb 12/05/2011 924.5 Contusion Of Unspecified Part Of Lower Limb 12/05/2011 924.5 Contusion Of Unspecified Part Of Lower Limb 12/05/2011 MYRON LOCO APRN 924.5 Contusion Of Unspecified Part Of Lower Limb 12/05/2011 MYRON LOCO APRN 924.5 Contusion Of Unspecified Part Of Lower Limb 12/05/2011 MYRON LOCO APRN 924.5 Contusion Of Unspecified Part Of Lower Limb 12/05/2011 MYRON LOCO APRN 924.5 Contusion Of Unspecified Part Of Lower Limb 12/05/2011 MYRON LOCO APRN 924.5 Contusion Of Unspecified Part Of Lower Limb 12/05/2011 MYRON LOCO APRN T 924.5 Contusion Of Unspecified Part Of Lower Limb 12/05/2011 MYRON LOCO APRN 924.5 CONTUSION OF UNSPECIFIED PART OF LOWER LIMB 12/05/2011 MYRON LOCO APRN T 924.5 Contusion Of Unspecified Part Of Lower Limb 12/05/2011 CAROL [place], DENICE Ferrera 924.5 Contusion Of Unspecified Part Of Lower Limb 12/05/2011 MYRON LOCO APRN T 924.5 Contusion Of Unspecified Part Of Lower Limb 12/05/2011 MYRON LOCO APRN 924.5 Contusion Of Unspecified Part Of Lower Limb 12/05/2011 MYRON LOCO APRN 924.5 Contusion Of Unspecified Part Of Lower Limb 12/05/2011 MYRON LOCO APRN 924.5 Contusion Of Unspecified Part Of Lower Limb 12/05/2011 MYRON LOCO APRN 924.5 Contusion Of Unspecified Part Of Lower Limb 12/05/2011 MYRON LOCO APRN 924.5 Contusion Of Unspecified Part Of Lower Limb 12/05/2011 MYRON LOCO APRN T 924.5 Contusion Of Unspecified Part Of Lower Limb 12/05/2011 MYRON LOCO APRN T 924.5 Contusion Of Unspecified Part Of Lower Limb 12/05/2011 MYRON LOCO APRN T 924.5 Contusion Of Unspecified Part Of Lower Limb 12/05/2011 MYRON LOCO APRN T 924.5 Contusion Of Unspecified Part Of Lower Limb 12/05/2011 MYRON LOCO APRN 924.5 Contusion Of Unspecified Part Of Lower Limb 12/05/2011 MYRON LOCO APRN 924.5 Contusion Of Unspecified Part Of Lower Limb 12/05/2011 MYRON LOCO APRN T 924.5 Contusion Of Unspecified Part Of Lower Limb 12/05/2011 MYRON LOCO APRN 924.5 Contusion Of Unspecified Part Of Lower Limb 02/21/2012 354.0 CARPAL TUNNEL SYNDROME 02/21/2012 MYRON LOCO APRN 354.0 CARPAL TUNNEL SYNDROME 02/21/2012 354.0 CARPAL TUNNEL SYNDROME 02/21/2012 354.0 CARPAL TUNNEL SYNDROME 02/21/2012 CLAUDY MOLD FILLING OPERATOR, MYRON T 354.0 CARPAL TUNNEL SYNDROME 02/21/2012 354.0 CARPAL TUNNEL SYNDROME 02/21/2012 354.0 CARPAL TUNNEL SYNDROME 02/21/2012 CLAUDY BOSTONN, MYRON T 354.0 CARPAL TUNNEL SYNDROME 02/21/2012 354.0 CARPAL TUNNEL SYNDROME 02/21/2012 354.0 CARPAL TUNNEL SYNDROME 02/21/2012 CLAUDY MOLD FILLING OPERATOR, MYRON T 354.0 CARPAL TUNNEL SYNDROME 02/21/2012 CLAUDY BOSTONN, YMRON T 354.0 CARPAL TUNNEL SYNDROME 02/21/2012 CLAUDY MOLD FILLING OPERATOR, MYRON T 354.0 CARPAL TUNNEL SYNDROME 02/21/2012 CLAUDY MOLD FILLING OPERATOR, MYRON T 354.0 CARPAL TUNNEL SYNDROME 02/21/2012 CLAUDY MOLD FILLING OPERATOR, MYRON T 354.0 CARPAL TUNNEL SYNDROME 02/21/2012 CLAUDY BOSTONN, MYRON T 354.0 CARPAL TUNNEL SYNDROME 02/21/2012 CLAUDY MOLD FILLING OPERATOR, MYRON T 354.0 CARPAL TUNNEL SYNDROME 02/21/2012 CLAUDY DODGE, MYRON T 354.0 CARPAL TUNNEL SYNDROME 02/21/2012 DENICE MEDINA DO 354.0 CARPAL TUNNEL SYNDROME 02/21/2012 CLAUDY BOSTONN, MYRON T 354.0 CARPAL TUNNEL SYNDROME 02/21/2012 CLAUDY BOSTONN, MYRON T 354.0 CARPAL TUNNEL SYNDROME 02/21/2012 CLAUDY BOSTONN, MYRON T 354.0 CARPAL TUNNEL SYNDROME 02/21/2012 CLAUDY DODGE, MYRON T 354.0 CARPAL TUNNEL SYNDROME 02/21/2012 CLAUDY DODGE, MYRON T 354.0 CARPAL TUNNEL SYNDROME 02/21/2012 CLAUDY DODGE, MYRON T 354.0 CARPAL TUNNEL SYNDROME 02/21/2012 CLAUDY DODGE, MYRON T 354.0 CARPAL TUNNEL SYNDROME 02/21/2012 CLAUDY BOSTONN, MYRON T 354.0 CARPAL TUNNEL SYNDROME 02/21/2012 CLAUDY DODGE, MYRON T 354.0 CARPAL TUNNEL SYNDROME 02/21/2012 CLAUDY DODGE, MYRON T 354.0 CARPAL TUNNEL SYNDROME 02/21/2012 CLAUDY DODGE, MYRON T 354.0 CARPAL TUNNEL SYNDROME 02/21/2012 CLAUDY BOSTONN, MYRON T 354.0 CARPAL TUNNEL SYNDROME 02/21/2012 MYRON LOCO APRN T 354.0 CARPAL TUNNEL SYNDROME 02/21/2012 MYRON LOCO APRN T 354.0 CARPAL TUNNEL SYNDROME 03/23/2012 786.2 COUGH 03/23/2012 CLAUDY MOLD FILLING OPERATOR, MYRON T 786.2 COUGH 03/23/2012 786.2 COUGH 03/23/2012 786.2 COUGH 03/23/2012 CLAUDY MOLD FILLING OPERATOR, MYRON T 786.2 COUGH 03/23/2012 786.2 COUGH 03/23/2012 786.2 Cough 03/23/2012 CLAUDY MOLD FILLING OPERATOR, MYRON T 786.2 Cough 03/23/2012 786.2 Cough 03/23/2012 786.2 Cough 03/23/2012 CLAUDY MOLD FILLING OPERATOR, MYRON T 786.2 Cough 03/23/2012 CLAUDY MOLD FILLING OPERATOR, MYRON T 786.2 Cough 03/23/2012 CLAUDY MOLD FILLING OPERATOR, MYRON T 786.2 Cough 03/23/2012 CLAUDY MOLD FILLING OPERATOR, MYRON T 786.2 Cough 03/23/2012 CLAUDY BOSTONN, MYRON T 786.2 Cough 03/23/2012 CLAUDY BOSTONN, MYRON T 786.2 Cough 03/23/2012 CLAUDY MOLD FILLING OPERATOR, MYRON T 786.2 COUGH 03/23/2012 CLAUDY BOSTONN, MYRON T 786.2 Cough 03/23/2012 DENICE MEDINA DO 786.2 Cough 03/23/2012 CLAUDY BOSTONN, MYRON T 786.2 Cough 03/23/2012 CLAUDY BOSTONN, MYRON T 786.2 Cough 03/23/2012 CLAUDY MOLD FILLING OPERATOR, MYRON T 786.2 Cough 03/23/2012 CLAUDY BOSTONN, MYRON T 786.2 Cough 03/23/2012 CLAUDY BOSTONN, MYRON T 786.2 Cough 03/23/2012 CLAUDY BOSTONN, MYRON T 786.2 Cough 03/23/2012 CLAUDY BOSTONN, MYRON T 786.2 Cough 03/23/2012 CLAUDY BOSTONN, MYRON T 786.2 Cough 03/23/2012 CLAUDY DODGE, MYRON T 786.2 Cough 03/23/2012 CLAUDY BOSTONN, MYRON T 786.2 Cough 03/23/2012 CLAUDY BOSTONN, MYRON T 786.2 Cough 03/23/2012 CLAUDY BOSTONN, MYRON T 786.2 Cough 03/23/2012 CLAUDY BOSTONN, MYRON T 786.2 Cough 03/23/2012 CLAUDY DODGE, MYRON T 786.2 Cough 04/15/2012 272.4 HYPERLIPIDEMIA 04/15/2012 MYRON LOCO APRN T 272.4 HYPERLIPIDEMIA 04/15/2012 272.4 HYPERLIPIDEMIA 04/15/2012 272.4 HYPERLIPIDEMIA 04/15/2012 MYRON LOCO APRN T 272.4 HYPERLIPIDEMIA 04/15/2012 272.4 HYPERLIPIDEMIA 04/15/2012 272.4 HYPERLIPIDEMIA 04/15/2012 CLAUDY MOLD FILLING OPERATOR, MYRON T 272.4 HYPERLIPIDEMIA 04/15/2012 272.4 HYPERLIPIDEMIA 04/15/2012 272.4 HYPERLIPIDEMIA 04/15/2012 CLAUDY MOLD FILLING OPERATOR, MYRON T 272.4 HYPERLIPIDEMIA 04/15/2012 CLAUDY MOLD FILLING OPERATOR, MYRON T 272.4 HYPERLIPIDEMIA 04/15/2012 CLAUDY MOLD FILLING OPERATOR, MYRON T 272.4 HYPERLIPIDEMIA 04/15/2012 CLAUDY MOLD FILLING OPERATOR, MYRON T 272.4 HYPERLIPIDEMIA 04/15/2012 CLAUDY MOLD FILLING OPERATOR, MYRON T 272.4 HYPERLIPIDEMIA 04/15/2012 CLAUDY MOLD FILLING OPERATOR, MYRON T 272.4 HYPERLIPIDEMIA 04/15/2012 CLAUDY MOLD FILLING OPERATOR, MYRON T 272.4 HYPERLIPIDEMIA 04/15/2012 CLAUDY MOLD FILLING OPERATOR, MYRON T 272.4 HYPERLIPIDEMIA 04/15/2012 CAROL LOUIS DENICE K 272.4 HYPERLIPIDEMIA 04/15/2012 CLAUDY MOLD FILLING OPERATOR, MYRON T 272.4 HYPERLIPIDEMIA 04/15/2012 CLAUDY MOLD FILLING OPERATOR, MYRON T 272.4 HYPERLIPIDEMIA 04/15/2012 CLAUDY MOLD FILLING OPERATOR, MYRON T 272.4 HYPERLIPIDEMIA 04/15/2012 CLAUDY MOLD FILLING OPERATOR, MYRON T 272.4 HYPERLIPIDEMIA 04/15/2012 CLAUDY MOLD FILLING OPERATOR, MYRON T 272.4 HYPERLIPIDEMIA 04/15/2012 CLAUDY MOLD FILLING OPERATOR, MYRON T 272.4 HYPERLIPIDEMIA 04/15/2012 CLAUDY MOLD FILLING OPERATOR, MYRON T 272.4 HYPERLIPIDEMIA 04/15/2012 CLAUDY MOLD FILLING OPERATOR, MYRON T 272.4 HYPERLIPIDEMIA 04/15/2012 CLAUDY MOLD FILLING OPERATOR, MYRON T 272.4 HYPERLIPIDEMIA 04/15/2012 CLAUDY MOLD FILLING OPERATOR, MYRON T 272.4 HYPERLIPIDEMIA 04/15/2012 CLAUDY MOLD FILLING OPERATOR, MYRON T 272.4 HYPERLIPIDEMIA 04/15/2012 CLAUDY MOLD FILLING OPERATOR, MYRON T 272.4 HYPERLIPIDEMIA 04/15/2012 CLAUDY MOLD FILLING OPERATOR, MYRON T 272.4 HYPERLIPIDEMIA 04/15/2012 CLAUDY MOLD FILLING OPERATOR, MYRON T 272.4 HYPERLIPIDEMIA 09/11/2012 CLAUDY MOLD FILLING OPERATOR, MYRON T 110.1 ONYCHOMYCOSIS 09/11/2012 CLAUDY MOLD FILLING OPERATOR, MYRON T 729.5 LEG PAIN 09/11/2012 110.1 ONYCHOMYCOSIS 09/11/2012 729.5 LEG PAIN 09/11/2012 110.1 ONYCHOMYCOSIS 09/11/2012 729.5 LEG PAIN 09/11/2012 CLAUDY MOLD FILLING OPERATOR, MYRON T 110.1 ONYCHOMYCOSIS 09/11/2012 CLAUDY MOLD FILLING OPERATOR, MYRON T 729.5 LEG PAIN 09/11/2012 110.1 ONYCHOMYCOSIS 09/11/2012 729.5 LEG PAIN 09/11/2012 110.1 ONYCHOMYCOSIS 09/11/2012 729.5 LEG PAIN 09/11/2012 MYRON LOCO APRN T 110.1 ONYCHOMYCOSIS 09/11/2012 MYRON LOCO APRN T 729.5 LEG PAIN 09/11/2012 110.1 ONYCHOMYCOSIS 09/11/2012 729.5 LEG PAIN 09/11/2012 110.1 ONYCHOMYCOSIS 09/11/2012 729.5 LEG PAIN 09/11/2012 MYRON LOCO APRN T 110.1 ONYCHOMYCOSIS 09/11/2012 MYRON LOCO APRN 729.5 LEG PAIN 09/11/2012 MYRON LOCO APRN T 110.1 ONYCHOMYCOSIS 09/11/2012 MYRON LOCO APRN 729.5 LEG PAIN 09/11/2012 MYRON LOCO APRN T 110.1 ONYCHOMYCOSIS 09/11/2012 MYRON LOCO APRN 729.5 LEG PAIN 09/11/2012 MYRON LOCO APRN T 110.1 ONYCHOMYCOSIS 09/11/2012 MYRON LOCO APRN 729.5 LEG PAIN 09/11/2012 MYRON LOCO APRN T 110.1 ONYCHOMYCOSIS 09/11/2012 MYRON LOCO APRN T 729.5 LEG PAIN 09/11/2012 MYRON LOCO APRN T 110.1 ONYCHOMYCOSIS 09/11/2012 MYRON LOCO APRN T 729.5 LEG PAIN 09/11/2012 MYRON LOCO APRN T 110.1 ONYCHOMYCOSIS 09/11/2012 MYRON LOCO APRN T 729.5 LEG PAIN 09/11/2012 MEDINA DO, DENICE K 110.1 ONYCHOMYCOSIS 09/11/2012 MEDINA DO, DENICE K 729.5 LEG PAIN 09/11/2012 MYRON LOCO APRN T 110.1 ONYCHOMYCOSIS 09/11/2012 MYRON LOCO APRN T 729.5 LEG PAIN 09/11/2012 MYRON LOCO APRN T 110.1 ONYCHOMYCOSIS 09/11/2012 MYRON LOCO APRN T 729.5 LEG PAIN 09/11/2012 MYRON LOCO APRN T 110.1 ONYCHOMYCOSIS 09/11/2012 CLAUDY MOLD FILLING OPERATOR, MYRON T 729.5 LEG PAIN 09/11/2012 CLAUDY MOLD FILLING OPERATOR, MYRON T 110.1 ONYCHOMYCOSIS 09/11/2012 CLAUDY MOLD FILLING OPERATOR, MYRON T 729.5 LEG PAIN 09/11/2012 CLAUDY MOLD FILLING OPERATOR, MYRON T 110.1 ONYCHOMYCOSIS 09/11/2012 CLAUDY MOLD FILLING OPERATOR, MYRON T 729.5 LEG PAIN 09/11/2012 CLAUDY MOLD FILLING OPERATOR, MYRON T 110.1 ONYCHOMYCOSIS 09/11/2012 CLAUDY MOLD FILLING OPERATOR, MYRON T 729.5 LEG PAIN 09/11/2012 CLAUDY MOLD FILLING OPERATOR, MYRON T 110.1 ONYCHOMYCOSIS 09/11/2012 CLAUDY MOLD FILLING OPERATOR, MYRON T 729.5 LEG PAIN 09/11/2012 CLAUDY MOLD FILLING OPERATOR, MYRON T 110.1 ONYCHOMYCOSIS 09/11/2012 CLAUDY MOLD FILLING OPERATOR, MYRON T 729.5 LEG PAIN 09/11/2012 CLAUDY BOSTONNMYRON T 110.1 ONYCHOMYCOSIS 09/11/2012 MYRON LOCO APRN T 729.5 LEG PAIN 09/11/2012 CLAUDY BOSTONN MYRON T 110.1 ONYCHOMYCOSIS 09/11/2012 CLAUDY MOLD FILLING OPERATOR, MYRON T 729.5 LEG PAIN 09/11/2012 CLAUDY MOLD FILLING OPERATOR, MYRON T 110.1 ONYCHOMYCOSIS 09/11/2012 CLAUYD BOSTONN, MYRON T 729.5 LEG PAIN 09/11/2012 CLAUDY MOLD FILLING OPERATOR, MYRON T 110.1 ONYCHOMYCOSIS 09/11/2012 MYRON LOCO APRN T 729.5 LEG PAIN 09/11/2012 CLAUDY DODGE MYRON T 110.1 ONYCHOMYCOSIS 09/11/2012 CLAUDY DODGE MYRON T 729.5 LEG PAIN 09/11/2012 CLAUDY BOSTONN, MYRON T 110.1 ONYCHOMYCOSIS 09/11/2012 CLAUDY BOSTONN, MYRON T 729.5 LEG PAIN 03/08/2013 703.0 NAIL INGROWN 03/08/2013 MYRON LOCO APRN T 703.0 NAIL INGROWN 03/08/2013 MYRON LOCO APRN T 703.0 NAIL INGROWN 03/08/2013 MYRON LOCO APRN T 703.0 NAIL INGROWN 03/08/2013 MYRON LOCO APRN T 703.0 NAIL INGROWN 03/08/2013 CLAUDY MOLD FILLING OPERATOR, MYRON T 703.0 NAIL INGROWN 03/08/2013 CLAUDY MOLD FILLING OPERATOR, MYRON T 703.0 NAIL INGROWN 03/08/2013 CLAUDY MOLD FILLING OPERATOR, MYRON T 703.0 NAIL INGROWN 03/08/2013 MEDINA DODENICE K 703.0 NAIL INGROWN 03/08/2013 CLAUDY MOLD FILLING OPERATOR, MYRON T 703.0 NAIL INGROWN 03/08/2013 CLAUDY MOLD FILLING OPERATOR, MYRON T 703.0 NAIL INGROWN 03/08/2013 CLAUDY MOLD FILLING OPERATOR, MYRON T 703.0 NAIL INGROWN 03/08/2013 CLAUDY MOLD FILLING OPERATOR, MYRON T 703.0 NAIL INGROWN 03/08/2013 CLAUDY MOLD FILLING OPERATOR, MYRON T 703.0 NAIL INGROWN 03/08/2013 CLAUDY MOLD FILLING OPERATOR, MYRON T 703.0 NAIL INGROWN 03/08/2013 CLAUDY MOLD FILLING OPERATOR, MYRON T 703.0 NAIL INGROWN 03/08/2013 CLAUDY MOLD FILLING OPERATOR, MYRON T 703.0 NAIL INGROWN 03/08/2013 CLAUDY MOLD FILLING OPERATOR, MYRON T 703.0 NAIL INGROWN 03/08/2013 CLAUDY MOLD FILLING OPERATOR, MYRON T 703.0 NAIL INGROWN 03/08/2013 CLAUDY MOLD FILLING OPERATOR, MYRON T 703.0 NAIL INGROWN 03/08/2013 CLAUDY MOLD FILLING OPERATOR, MYRON T 703.0 NAIL INGROWN 03/08/2013 CLAUDY MOLD FILLING OPERATOR, MYRON T 703.0 NAIL INGROWN 03/08/2013 CLAUDY MOLD FILLING OPERATOR, MYRON T 703.0 NAIL INGROWN 06/30/2013 MYRON LOCO APRN T 357.9 NEUROPATHY UNSP 06/30/2013 MYRON LOCO APRN T 357.9 NEUROPATHY UNSP 06/30/2013 CLAUDY BOSTONNMYRON T 357.9 NEUROPATHY UNSP 06/30/2013 CLAUDY MOLD FILLING OPERATORMYRON T 357.9 NEUROPATHY UNSP 06/30/2013 CLAUDY BOSTONNMYRON T 357.9 NEUROPATHY UNSP 06/30/2013 CLAUDY MOLD FILLING OPERATORMYRON T 357.9 NEUROPATHY UNSP 06/30/2013 DENICE MEDINA DO K 357.9 NEUROPATHY UNSP 06/30/2013 CLAUDY MOLD FILLING OPERATORMYRON T 357.9 NEUROPATHY UNSP 06/30/2013 MYRON LOCO APRN T 357.9 NEUROPATHY UNSP 06/30/2013 CLAUDY BOSTONNMYRON T 357.9 NEUROPATHY UNSP 06/30/2013 CLAUDY BOSTONNMYRON T 357.9 NEUROPATHY UNSP 06/30/2013 MYRON LOCO APRN T 357.9 NEUROPATHY UNSP 06/30/2013 MYRON LOCO APRN T 357.9 NEUROPATHY UNSP 06/30/2013 CLAUDY BOSTONNMYRON T 357.9 NEUROPATHY UNSP 06/30/2013 CLAUDY BOSTONN, MYRON T 357.9 NEUROPATHY UNSP 06/30/2013 CLAUDY BOSTONNMYRON T 357.9 NEUROPATHY UNSP 06/30/2013 MYRON LOCO APRN T 357.9 NEUROPATHY UNSP 06/30/2013 CLAUDY BOSTONNMYRON T 357.9 NEUROPATHY UNSP 06/30/2013 CLAUDY BOSTONNMYRON T 357.9 NEUROPATHY UNSP 06/30/2013 CLAUDY BOSTONNMYRON T 357.9 NEUROPATHY UNSP 06/30/2013 MYRON LOCO APRN T 357.9 NEUROPATHY UNSP 08/16/2013 MYRON LOCO APRN T 290.0 SENILE DEMENTIA UNCOMPLICATED 08/16/2013 MYRON LOCO APRN T 290.0 SENILE DEMENTIA UNCOMPLICATED 08/16/2013 MYRON LOCO APRN T 290.0 SENILE DEMENTIA UNCOMPLICATED 08/16/2013 MYRON LOCO APRN T 290.0 SENILE DEMENTIA UNCOMPLICATED 08/16/2013 MEDINA DO, DENICE K 290.0 SENILE DEMENTIA UNCOMPLICATED 08/16/2013 MYRON LOCO APRN T 290.0 SENILE DEMENTIA UNCOMPLICATED 08/16/2013 MYRON LOCO APRN T 290.0 SENILE DEMENTIA UNCOMPLICATED 08/16/2013 MYRON LOCO APRN T 290.0 SENILE DEMENTIA UNCOMPLICATED 08/16/2013 MYRON LOCO APRN T 290.0 SENILE DEMENTIA UNCOMPLICATED 08/16/2013 MYRON LOCO APRN T 290.0 SENILE DEMENTIA UNCOMPLICATED 08/16/2013 MYRON LOCO APRN T 290.0 SENILE DEMENTIA UNCOMPLICATED 08/16/2013 MYRON LOCO APRN T 290.0 SENILE DEMENTIA UNCOMPLICATED 08/16/2013 MYRON LOCO APRN T 290.0 SENILE DEMENTIA UNCOMPLICATED 08/16/2013 MYRON LOCO APRN T 290.0 SENILE DEMENTIA UNCOMPLICATED 08/16/2013 MYRON LOCO APRN T 290.0 SENILE DEMENTIA UNCOMPLICATED 08/16/2013 MYRON OLCO APRN T 290.0 SENILE DEMENTIA UNCOMPLICATED 08/16/2013 MYRON LOCO APRN T 290.0 SENILE DEMENTIA UNCOMPLICATED 08/16/2013 MYRON LOCO APRN T 290.0 SENILE DEMENTIA UNCOMPLICATED 08/16/2013 CLAUDY MOLD FILLING OPERATOR, MYRON T 290.0 SENILE DEMENTIA UNCOMPLICATED 12/18/2013 MEDINA DO, DENICE K 466.0 BRONCHITIS, ACUTE 12/18/2013 MEDINA DO, DENICE K 786.05 SHORTNESS OF BREATH 12/18/2013 CLAUDY MOLD FILLING OPERATOR, MYRON T 466.0 BRONCHITIS, ACUTE 12/18/2013 CLAUDY MOLD FILLING OPERATOR, MYRON T 786.05 SHORTNESS OF BREATH 12/18/2013 CLAUDY MOLD FILLING OPERATOR, MYRON T 466.0 BRONCHITIS, ACUTE 12/18/2013 CLAUDY MOLD FILLING OPERATOR, MYRON T 786.05 SHORTNESS OF BREATH 12/18/2013 CLAUDY MOLD FILLING OPERATOR, MYRON T 466.0 BRONCHITIS, ACUTE 12/18/2013 CLAUDY MOLD FILLING OPERATOR, MYRON T 786.05 SHORTNESS OF BREATH 12/18/2013 CLAUDY MOLD FILLING OPERATOR, MYRON T 466.0 BRONCHITIS, ACUTE 12/18/2013 CLAUDY MOLD FILLING OPERATOR, MYRON T 786.05 SHORTNESS OF BREATH 12/18/2013 CLAUDY MOLD FILLING OPERATOR, MYRON T 466.0 BRONCHITIS, ACUTE 12/18/2013 CLAUDY MOLD FILLING OPERATOR, MYRON T 786.05 SHORTNESS OF BREATH 12/18/2013 CLAUDY MOLD FILLING OPERATOR, MYRON T 466.0 BRONCHITIS, ACUTE 12/18/2013 CLAUDY MOLD FILLING OPERATOR, MYRON T 786.05 SHORTNESS OF BREATH 12/18/2013 CLAUDY MOLD FILLING OPERATOR, MYRON T 466.0 BRONCHITIS, ACUTE 12/18/2013 CLAUDY MOLD FILLING OPERATOR, MYRON T 786.05 SHORTNESS OF BREATH 12/18/2013 CLAUDY MOLD FILLING OPERATOR, MYRON T 466.0 BRONCHITIS, ACUTE 12/18/2013 CLAUDY MOLD FILLING OPERATOR, MYRON T 786.05 SHORTNESS OF BREATH 12/18/2013 CLAUDY MOLD FILLING OPERATOR, MYRON T 466.0 BRONCHITIS, ACUTE 12/18/2013 CLAUDY MOLD FILLING OPERATOR, MYRON T 786.05 SHORTNESS OF BREATH 12/18/2013 CLAUDY MOLD FILLING OPERATOR, MYRON T 466.0 BRONCHITIS, ACUTE 12/18/2013 CLAUDY MOLD FILLING OPERATOR, MYRON T 786.05 SHORTNESS OF BREATH 12/18/2013 CLAUDY MOLD FILLING OPERATOR, MYRON T 466.0 BRONCHITIS, ACUTE 12/18/2013 CLAUDY MOLD FILLING OPERATOR, MYRON T 786.05 SHORTNESS OF BREATH 12/18/2013 CLAUDY MOLD FILLING OPERATOR, MYRON T 466.0 BRONCHITIS, ACUTE 12/18/2013 CLAUDY MOLD FILLING OPERATOR, MYRON T 786.05 SHORTNESS OF BREATH 12/18/2013 CLAUDY MOLD FILLING OPERATOR, MYRON T 466.0 BRONCHITIS, ACUTE 12/18/2013 CLAUDY MOLD FILLING OPERATOR, MYRON T 786.05 SHORTNESS OF BREATH 12/18/2013 CLAUDY MOLD FILLING OPERATOR, MYRON T 466.0 BRONCHITIS, ACUTE 12/18/2013 CLAUDY MOLD FILLING OPERATOR, MYRON T 786.05 SHORTNESS OF BREATH 01/12/2014 CLAUDY MOLD FILLING OPERATOR, MYRON T 296.90 MOOD DISORDER 01/12/2014 CLAUDY MOLD FILLING OPERATOR, MYRON T 466.0 BRONCHITIS, ACUTE 01/12/2014 CLAUDY MOLD FILLING OPERATOR, MYRNO T 296.90 MOOD DISORDER 01/12/2014 CLAUDY MOLD FILLING OPERATOR, MYRON T 466.0 BRONCHITIS, ACUTE 01/12/2014 CLAUDY MOLD FILLING OPERATOR, MYRON T 296.90 MOOD DISORDER 01/12/2014 CLAUDY MOLD FILLING OPERATOR, MYRON T 466.0 BRONCHITIS, ACUTE 01/12/2014 CLAUDY MOLD FILLING OPERATOR, MYRON T 296.90 MOOD DISORDER 01/12/2014 CLAUDY MOLD FILLING OPERATOR, MYRON T 466.0 BRONCHITIS, ACUTE 01/12/2014 CLAUDY MOLD FILLING OPERATOR, MYRON T 296.90 MOOD DISORDER 01/12/2014 CLAUDY MOLD FILLING OPERATOR, MYRON T 466.0 BRONCHITIS, ACUTE 01/12/2014 CLAUDY MOLD FILLING OPERATOR, MYRON T 296.90 MOOD DISORDER 01/12/2014 CLAUDY MOLD FILLING OPERATOR, MYRON T 466.0 BRONCHITIS, ACUTE 01/12/2014 CLAUDY MOLD FILLING OPERATOR, MYRON T 296.90 MOOD DISORDER 01/12/2014 CLAUDY MOLD FILLING OPERATOR, MYRON T 466.0 BRONCHITIS, ACUTE 01/12/2014 CLAUDY MOLD FILLING OPERATOR, MYRON T 296.90 MOOD DISORDER 01/12/2014 CLAUDY MOLD FILLING OPERATOR, MYRON T 466.0 BRONCHITIS, ACUTE 01/12/2014 CLAUDY MOLD FILLING OPERATOR, MYRON T 296.90 MOOD DISORDER 01/12/2014 CLAUDY MOLD FILLING OPERATOR, MYRON T 466.0 BRONCHITIS, ACUTE 01/12/2014 CLAUDY MOLD FILLING OPERATOR, MYRON T 296.90 MOOD DISORDER 01/12/2014 CLAUDY MOLD FILLING OPERATOR, MYRON T 466.0 BRONCHITIS, ACUTE 01/12/2014 CLAUDY MOLD FILLING OPERATOR, MYRON T 296.90 MOOD DISORDER 01/12/2014 CLAUDY MOLD FILLING OPERATOR, MYRON T 466.0 BRONCHITIS, ACUTE 01/12/2014 CLAUDY MOLD FILLING OPERATOR, MYRON T 296.90 MOOD DISORDER 01/12/2014 CLAUDY MOLD FILLING OPERATOR, MYRON T 466.0 BRONCHITIS, ACUTE 01/12/2014 CLAUDY MOLD FILLING OPERATOR, MYRON T 296.90 MOOD DISORDER 01/12/2014 CLAUDY MOLD FILLING OPERATOR, MYRON T 466.0 BRONCHITIS, ACUTE 03/07/2014 CLAUDY MOLD FILLING OPERATOR, MYRON T 724.5 BACKACHE UNSPECIFIED 03/07/2014 CLAUDY MOLD FILLING OPERATOR, MYRON T 724.5 BACKACHE UNSPECIFIED 03/07/2014 MYRON LOCO APRN T 724.5 BACKACHE UNSPECIFIED 03/07/2014 MYRON LOCO APRN 724.5 BACKACHE UNSPECIFIED 03/07/2014 CLAUDY BOSTONN, MYRON T 724.5 BACKACHE UNSPECIFIED 03/07/2014 CLAUDY BOSTONN, MYRON T 724.5 BACKACHE UNSPECIFIED 03/07/2014 MYRON LOCO APRN 724.5 BACKACHE UNSPECIFIED 03/07/2014 CLAUDY BOSTONNMYRON T 724.5 BACKACHE UNSPECIFIED 03/07/2014 CLAUDY BOSTONNMYRON T 724.5 BACKACHE UNSPECIFIED 06/24/2014 MYRON LOCO APRN T 250.01 DIABETES 1 CONTROLLED 06/24/2014 MYRON LOCO APRN T 401.0 HYPERTENSION MALIGNANT ESSENTIAL 06/24/2014 MYRON LOCO APRN 250.01 DIABETES 1 CONTROLLED 06/24/2014 MYRON LOCO APRN 401.0 HYPERTENSION MALIGNANT ESSENTIAL 06/24/2014 MYRON LOCO APRN 250.01 DIABETES 1 CONTROLLED 06/24/2014 MYRON LOCO APRN 401.0 HYPERTENSION MALIGNANT ESSENTIAL 06/24/2014 MYRON LOCO APRN T 250.01 DIABETES 1 CONTROLLED 06/24/2014 MYRON LOCO APRN T 401.0 HYPERTENSION MALIGNANT ESSENTIAL 06/24/2014 MYRON LOCO APRN 250.01 DIABETES 1 CONTROLLED 06/24/2014 MYRON LOCO APRN 401.0 HYPERTENSION MALIGNANT ESSENTIAL 06/24/2014 MYRON LOCO APRN T 250.01 DIABETES 1 CONTROLLED 06/24/2014 MYRON LOCO APRN 401.0 HYPERTENSION MALIGNANT ESSENTIAL 06/24/2014 MYRON LOCO APRN 250.01 DIABETES 1 CONTROLLED 06/24/2014 MYRON LOCO APRN 401.0 HYPERTENSION MALIGNANT ESSENTIAL 07/01/2014 MYRON LOCO APRN 780.52 INSOMNIA UNSPECIFIED 07/01/2014 MYRON LOCO APRN 780.52 INSOMNIA UNSPECIFIED 07/01/2014 MYRON LOCO APRN 780.52 INSOMNIA UNSPECIFIED 07/01/2014 MYRON LOCO APRN 780.52 INSOMNIA UNSPECIFIED 07/01/2014 MYRON LOCO APRN 780.52 INSOMNIA UNSPECIFIED 07/01/2014 MYRON LOCO APRN 780.52 INSOMNIA UNSPECIFIED 07/13/2014 MYRON LOCO APRN 250.00 DIABETES II CONTROLLED (UNCOMPLICATED) 07/13/2014 MYRON LOCO APRN V04.81 FLU SHOT 07/13/2014 MYRON LOCO APRN T 250.00 DIABETES II CONTROLLED (UNCOMPLICATED) 07/13/2014 CLAUDY BOSTONNMYRON T V04.81 FLU SHOT 07/13/2014 CLAUDY BOSTONN, MYRON T 250.00 DIABETES II CONTROLLED (UNCOMPLICATED) 07/13/2014 CLAUDY BOSTONNMYRON T V04.81 FLU SHOT 07/13/2014 CLAUDY BOSTONNMYRON T 250.00 DIABETES II CONTROLLED (UNCOMPLICATED) 07/13/2014 CLAUDY BOSTONNMYRON T V04.81 FLU SHOT 07/13/2014 CLAUDY BOSTONNMYRON T 250.00 DIABETES II CONTROLLED (UNCOMPLICATED) 07/13/2014 MYRON LOCO APRN T V04.81 FLU SHOT 07/27/2014 MYRON LOCO APRN T 461.9 SINUSITIS ACUTE 07/27/2014 MYRON LOCO APRN T 784.0 HEADACHE 07/27/2014 MYRON LOCO APRN T 787.91 DIARRHEA 07/27/2014 MYRON LOCO APRN 461.9 SINUSITIS ACUTE 07/27/2014 MYRON LOCO APRN T 784.0 HEADACHE 07/27/2014 MYRON LOCO APRN T 787.91 DIARRHEA 07/27/2014 MYRON LOCO APRN T 461.9 SINUSITIS ACUTE 07/27/2014 MYRON LOCO APRN T 784.0 HEADACHE 07/27/2014 MYRON LOCO APRN T 787.91 DIARRHEA 07/27/2014 MYRON LOCO APRN T 461.9 SINUSITIS ACUTE 07/27/2014 MYRON LOCO APRN T 784.0 HEADACHE 07/27/2014 MYRON LOCO APRN T 787.91 DIARRHEA 08/26/2014 MYRON LOCO APRN T 848.9 SPRAIN/STRAIN OTHER UNSPEC SITE 08/26/2014 MYRON LOCO APRN 848.9 SPRAIN/STRAIN OTHER UNSPEC SITE 08/26/2014 MYRON LOCO APRN 848.9 SPRAIN/STRAIN OTHER UNSPEC SITE 11/04/2014 MYRON LOCO APRN 682.2 CELLULITIS AND ABSCESS OF TRUNK 11/04/2014 MYRON LOCO APRN 682.2 CELLULITIS AND ABSCESS OF TRUNK 11/07/2014 MYRON LOCO APRN 593.9 RENAL INSUFFICIENCY 11/07/2014 MYRON LOCO APRN 593.9 RENAL INSUFFICIENCY 07/20/2015 RICH AMAYA COUNTER MANAGER Ot 789.00 05/22/2017 AHUJA PA, KIM M Ot 466.0 ACUTE BRONCHITIS 05/22/2017 AHUJA PA, KIM M Ot 786.05 SHORTNESS OF BREATH 05/22/2017 AHUJA PA, KIM M Ot 793.19 OTHER NONSPECIFIC ABNORMAL FINDING OF JAX 05/22/2017 MONIQUE RICH COUNTER MANAGER Ot 789.00 ABDOMINAL PAIN, UNSPECIFIED SITE 05/23/2017 EMELY BREEN MOLD FILLING OPERATOR Ot 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 05/23/2017 EMELY BREEN MOLD FILLING OPERATOR Ot R51 HEADACHE 05/23/2017 AHUJA PA, KIM M Ot 466.0 ACUTE BRONCHITIS 05/23/2017 AHUJA PA, KIM M Ot 786.05 SHORTNESS OF BREATH 05/23/2017 AHUJA PA, KIM M Ot 793.19 OTHER NONSPECIFIC ABNORMAL FINDING OF JAX 05/23/2017 RICH AMAYA COUNTER MANAGER Ot 789.00 ABDOMINAL PAIN, UNSPECIFIED SITE 07/07/2017 AHUJA PA, KIM M Ot 466.0 ACUTE BRONCHITIS 07/07/2017 AHUJA PA, KIM M Ot 786.05 SHORTNESS OF BREATH 07/07/2017 AHUJA PA, KIM M Ot 793.19 OTHER NONSPECIFIC ABNORMAL FINDING OF JAX 07/07/2017 RICH AMAYA COUNTER MANAGER Ot 789.00 ABDOMINAL PAIN, UNSPECIFIED SITE 07/07/2017 AHUJA PA, KIM M Ot 466.0 ACUTE BRONCHITIS 07/07/2017 AHUJA PA, KIM M Ot 786.05 SHORTNESS OF BREATH 07/07/2017 AHUJA PA, KIM M Ot 793.19 OTHER NONSPECIFIC ABNORMAL FINDING OF JAX 07/07/2017 RICH AMAYA COUNTER MANAGER Ot 789.00 ABDOMINAL PAIN, UNSPECIFIED SITE 07/11/2017 LATRELL AMEZQUITA MD Ot E11.9 TYPE 2 DIABETES MELLITUS WITHOUT COMPLIC 07/11/2017 LATRELL AMEZQUITA MD Ot E86.0 DEHYDRATION 07/11/2017 LATRELL AMEZQUITA MD Ot E87.6 HYPOKALEMIA 07/11/2017 LATRELL AMEZQUITA MD Ot I10 ESSENTIAL (PRIMARY) HYPERTENSION 07/11/2017 LATRELL AMEZQUITA MD Ot K70.30 ALCOHOLIC CIRRHOSIS OF LIVER WITHOUT ASC 07/11/2017 LATRELL AMEZQUITA MD Ot K72.90 HEPATIC FAILURE, UNSPECIFIED WITHOUT COM 07/11/2017 LATRELL AMEZQUITA MD Ot R31.0 GROSS HEMATURIA 07/11/2017 LATRELL AMEZQUITA MD Ot Z79.4 FUGITIVE DETECTIVE (CURRENT) USE OF INSULIN 07/11/2017 LATRELL AMEZQUITA MD Ot Z87.891 PERSONAL HISTORY OF NICOTINE DEPENDENCE 07/28/2017 KIM RINALDI M Ot 466.0 ACUTE BRONCHITIS 07/28/2017 KIM RINALDI M Ot 786.05 SHORTNESS OF BREATH 07/28/2017 KIM RINALDI M Ot 793.19 OTHER NONSPECIFIC ABNORMAL FINDING OF JAX 07/28/2017 RICH AMAYA COUNTER MANAGER Ot 789.00 ABDOMINAL PAIN, UNSPECIFIED SITE 08/19/2017 NWAGWU, ISIDORE O MOLD FILLING OPERATOR Ot R11.2 NAUSEA WITH VOMITING, UNSPECIFIED 08/29/2017 NWAGWU, ISIDORE O MOLD FILLING OPERATOR Ot R11.2 NAUSEA WITH VOMITING, UNSPECIFIED 09/09/2017 ELIANA MEJIA, RONALD Monge Ot K74.60 UNSPECIFIED CIRRHOSIS OF LIVER 10/03/2017 RONALD MONROY MD Ot K74.60 UNSPECIFIED CIRRHOSIS OF LIVER 01/07/2018 KIM RINALDI M Ot 466.0 ACUTE BRONCHITIS 01/07/2018 KIM RINALDI M Ot 786.05 SHORTNESS OF BREATH 01/07/2018 KIM RINALDI M Ot 793.19 OTHER NONSPECIFIC ABNORMAL FINDING OF JAX 01/07/2018 RICH AMAYA COUNTER MANAGER Ot 789.00 ABDOMINAL PAIN, UNSPECIFIED SITE 01/07/2018 NWAGWU, ISIDORE O MOLD FILLING OPERATOR Ot R11.2 NAUSEA WITH VOMITING, UNSPECIFIED 01/15/2018 GILSON RINALDIUA M Ot 466.0 ACUTE BRONCHITIS 01/15/2018 GILSON RINALDIUA M Ot 786.05 SHORTNESS OF BREATH 01/15/2018 KENNEDY RINALDISHUA M Ot 793.19 OTHER NONSPECIFIC ABNORMAL FINDING OF JAX 01/15/2018 RICH AMAYA COUNTER MANAGER Ot 789.00 ABDOMINAL PAIN, UNSPECIFIED SITE 01/15/2018 NWAGWU, ISIDORE O MOLD FILLING OPERATOR Ot R11.2 NAUSEA WITH VOMITING, UNSPECIFIED 01/16/2018 ELIANA MEJIA, RONALD Monge Ot R07.2 PRECORDIAL PAIN 01/21/2018 ELIANA MEJIA, RONALD A Ot R07.2 PRECORDIAL PAIN 02/05/2018 ELIANA MEJIA, RONALD Monge Ot R07.2 PRECORDIAL PAIN 02/13/2018 ELIANA MEJIA, RONALD Monge Ot R07.2 PRECORDIAL PAIN 04/03/2019 PURA DO DONNY K Ot E11.9 TYPE 2 DIABETES MELLITUS WITHOUT COMPLIC 04/03/2019 PURA DO DONNY K Ot E78.00 PURE HYPERCHOLESTEROLEMIA, UNSPECIFIED 04/03/2019 PURA DO DONNY K Ot F03.90 UNSPECIFIED DEMENTIA WITHOUT BEHAVIORAL 04/03/2019 PURA DO DONNY K Ot F12.10 CANNABIS ABUSE, UNCOMPLICATED 04/03/2019 PURA DO DONNY K Ot G43.909 MIGRAINE, UNSP, NOT INTRACTABLE, WITHOUT 04/03/2019 PURA DO DONNY K Ot I10 ESSENTIAL (PRIMARY) HYPERTENSION 04/03/2019 PURA DO DONNY K Ot I71.2 THORACIC AORTIC ANEURYSM, WITHOUT RUPTUR 04/03/2019 PURA DO DONNY K Ot K21.9 GASTRO-ESOPHAGEAL REFLUX DISEASE WITHOUT 04/03/2019 PURA DO DONNY K Ot R07.9 CHEST PAIN, UNSPECIFIED 04/03/2019 PURA DO DONNY K Ot Z79.4 SKILLED NURSING (CURRENT) USE OF INSULIN 04/03/2019 MICHELLE NEVES DOA K Ot Z82.49 FAMILY HX OF ISCHEM HEART DIS AND OTH DI 04/03/2019 MICHELLE NEVES DOA K Ot Z87.891 PERSONAL HISTORY OF NICOTINE DEPENDENCE 04/03/2019 PURA LOUIS DONNY K Ot Z87.898 PERSONAL HISTORY OF OTHER SPECIFIED COND 04/03/2019 MICHELLE NEVES DOA K Ot Z88.5 ALLERGY STATUS TO NARCOTIC AGENT STATUS 04/07/2019 PURA DO DONNY K Ot E11.9 TYPE 2 DIABETES MELLITUS WITHOUT COMPLIC 04/07/2019 PURA DO DONNY K Ot E78.00 PURE HYPERCHOLESTEROLEMIA, UNSPECIFIED 04/07/2019 PURA DO DONNY K Ot F03.90 UNSPECIFIED DEMENTIA WITHOUT BEHAVIORAL 04/07/2019 PURA MICHELLE LOUISA K Ot F12.10 CANNABIS ABUSE, UNCOMPLICATED 04/07/2019 DONNY NEVES DO Ot G43.909 MIGRAINE, UNSP, NOT INTRACTABLE, WITHOUT 04/07/2019 PURA [place] DONNY Ferrera Ot I10 ESSENTIAL (PRIMARY) HYPERTENSION 04/07/2019 PURA [place] DONNY Ferrera Ot I71.2 THORACIC AORTIC ANEURYSM, WITHOUT RUPTUR 04/07/2019 PURA [place] DONNY Maisha Ot K21.9 GASTRO-ESOPHAGEAL REFLUX DISEASE WITHOUT 04/07/2019 PURA [place] DONNY Ferrera Ot R07.9 CHEST PAIN, UNSPECIFIED 04/07/2019 PURA OLUIS DONNY Ferrera Ot Z79.4 SKILLED NURSING (CURRENT) USE OF INSULIN 04/07/2019 PURA [place] DONNY Ferrera Ot Z82.49 FAMILY HX OF ISCHEM HEART DIS AND OTH DI 04/07/2019 PURA [place] DONNY Ferrera Ot Z87.891 PERSONAL HISTORY OF NICOTINE DEPENDENCE 04/07/2019 PURA [place] DONNY Maisha Ot Z87.898 PERSONAL HISTORY OF OTHER SPECIFIED COND 04/07/2019 PURA [place] DONNY Ferrera Ot Z88.5 ALLERGY STATUS TO NARCOTIC AGENT STATUS Procedures Code Description [place] [address] ROUTINE VENIPUNCTURE 08/14/2012 10754 H PYLORI (IN-HOUSE) 08/14/2012 42845 LIPID PANEL 08/14/2012 15912 GLUCOSE FINGER STICK 09/11/2012 32449 REMOVAL OF NAIL BED 09/23/2012 21404 A1C (IN-HOUSE) 10/12/2012 16697 ROUTINE VENIPUNCTURE 11/25/2012 28476 CMP 11/25/2012 10410 LIPID PANEL 11/25/2012 [id number] GFR CALC (RESULT ONLY) 11/25/2012 72706 CBC 11/25/2012 42820 TSH 11/25/2012 91382 URIC ACID 11/25/2012 68912 A1C (IN-HOUSE) 01/20/2013 10881 REMOVAL OF NAIL BED 03/17/2013 58159 A1C (IN-HOUSE) 06/30/2013 01293 MRI BRAIN W/O & W/DYE 08/16/2013 29183 CMP 08/16/2013 86436 LIPID PANEL 08/16/2013 66996 TSH 08/16/2013 15148 CBC 08/16/2013 33821 ROUTINE VENIPUNCTURE 08/25/2013 80734 CBC 08/25/2013 71374 CMP 08/25/2013 78289 LIPID PANEL 08/25/2013 63958 TSH 08/25/2013 40888 A1C (IN-HOUSE) 11/19/2013 37763 MICRO ALBUMIN-IN HOUSE 11/19/2013 76219 XRAY CHEST 2 VIEW 12/18/2013 04728 OXIMETRY 12/18/2013 84026 OXIMETRY 12/27/2013 12577 OXIMETRY 01/12/2014 79796 OXIMETRY 02/04/2014 46693 A1C (IN-HOUSE) 03/07/2014 16623 A1C (IN-HOUSE) 06/24/2014 15002 SLEEP STUDY (HOSPITAL- SLEEP STUDY) 07/01/2014 G0008 FLU ADMINISTRATION (MEDICARE ONLY) 07/13/2014 17996 ROUTINE VENIPUNCTURE 11/07/2014 18750 BMP 11/07/2014 [id number] GFR CALC (RESULT ONLY) 11/07/2014 [id number] SPTYPE 11/07/2014 47653 ROUTINE VENIPUNCTURE 11/14/2014 51165 BMP 11/14/2014 Results Test Result Range Complete blood count (CBC) with automated white blood cell (WBC) differential - 05/22/17 21:44 Blood leukocytes automated count (number/volume) 8.4 10*3/uL 4.3-11.0 Blood erythrocytes automated count (number/volume) 4.49 10*6/uL 4.35-5.85 Venous blood hemoglobin measurement (mass/volume) 14.0 g/dL 13.3-17.7 Blood hematocrit (volume fraction) 41 % 40-54 Automated erythrocyte mean corpuscular volume 91 [foz_us] 80-99 Automated erythrocyte mean corpuscular hemoglobin (mass per erythrocyte) 31 pg 25-34 Automated erythrocyte mean corpuscular hemoglobin concentration measurement (mass/volume) 34 g/dL 32-36 Automated erythrocyte distribution width ratio 13.3 % 10.0- 14.5 Automated blood platelet count (count/volume) 263 10*3/uL 130-400 Automated blood platelet mean volume measurement 10.8 [foz_us] 7.4-10.4 Automated blood neutrophils/100 leukocytes 53 % 42-75 Automated blood lymphocytes/100 leukocytes 34 % 12-44 Blood monocytes/100 leukocytes 10 % 0-12 Automated blood eosinophils/100 leukocytes 3 % 0-10 Automated blood basophils/100 leukocytes 1 % 0-10 Blood neutrophils automated count (number/volume) 4.5 10*3 1.8-7.8 Blood lymphocytes automated count (number/volume) 2.8 10*3 1.0-4.0 Blood monocytes automated count (number/volume) 0.8 10*3 0.0- 1.0 Automated eosinophil count 0.3 10*3/uL 0.0-0.3 Automated blood basophil count (count/volume) 0.1 10*3/uL 0.0-0.1 Comprehensive metabolic panel - 05/22/17 21:44 Serum or plasma sodium measurement (moles/volume) 138 mmol/L 135-145 Serum or plasma potassium measurement (moles/volume) 3.9 mmol/L 3.6-5.0 Serum or plasma chloride measurement (moles/volume) 107 mmol/L 98-107 Carbon dioxide 20 mmol/L 21-32 Serum or plasma anion gap determination (moles/volume) 11 mmol/L 5-14 Serum or plasma urea nitrogen measurement (mass/volume) 17 mg/dL 7-18 Serum or plasma creatinine measurement (mass/volume) 1.37 mg/dL 0.60-1.30 Serum or plasma urea nitrogen/creatinine mass ratio 12 NRG Serum or plasma creatinine measurement with calculation of estimated glomerular filtration rate 52 NRG Serum or plasma glucose measurement (mass/volume) 115 mg/dL 70-105 Serum or plasma calcium measurement (mass/volume) 9.6 mg/dL 8.5-10.1 Serum or plasma total bilirubin measurement (mass/volume) 1.2 mg/dL 0.1-1.0 Serum or plasma alkaline phosphatase measurement (enzymatic activity/volume) 161 U/L 40-136 Serum or plasma aspartate aminotransferase measurement (enzymatic activity/volume) 63 U/L 5-34 Serum or plasma alanine aminotransferase measurement (enzymatic activity/volume) 49 U/L 0-55 Serum or plasma protein measurement (mass/volume) 8.2 g/dL 6.4-8.2 Serum or plasma albumin measurement (mass/volume) 3.9 g/dL 3.2-4.5 Complete urinalysis with reflex to culture - 05/22/17 22:15 Urine color determination YELLOW NRG Urine clarity determination CLEAR NRG Urine pH measurement by test strip 5 5-9 Specific gravity of urine by test strip 1.015 1.016-1.022 Urine protein assay by test strip, semi-quantitative 1+ NEGATIVE Urine glucose detection by automated test strip NEGATIVE NEGATIVE Erythrocytes detection in urine sediment by light microscopy NEGATIVE NEGATIVE Urine ketones detection by automated test strip NEGATIVE NEGATIVE Urine nitrite detection by test strip NEGATIVE NEGATIVE Urine total bilirubin detection by test strip NEGATIVE NEGATIVE Urine urobilinogen measurement by automated test strip (mass/volume) 1 mg/dL NORMAL Urine leukocyte esterase detection by dipstick NEGATIVE NEGATIVE Automated urine sediment erythrocyte count by microscopy (number/high power field) NONE NRG Automated urine sediment leukocyte count by microscopy (number/high power field) NONE NRG Bacteria detection in urine sediment by light microscopy NONE NRG Crystals detection in urine sediment by light microscopy NONE NRG Casts detection in urine sediment by light microscopy NONE NRG Mucus detection in urine sediment by light microscopy NEGATIVE NRG Complete urinalysis with reflex to culture NO NRG Complete blood count (CBC) with automated white blood cell (WBC) differential - 07/07/17 19:50 Blood leukocytes automated count (number/volume) 9.0 10*3/uL 4.3-11.0 Blood erythrocytes automated count (number/volume) 4.21 10*6/uL 4.35-5.85 Venous blood hemoglobin measurement (mass/volume) 13.4 g/dL 13.3-17.7 Blood hematocrit (volume fraction) 40 % 40-54 Automated erythrocyte mean corpuscular volume 96 [foz_us] 80-99 Automated erythrocyte mean corpuscular hemoglobin (mass per erythrocyte) 32 pg 25-34 Automated erythrocyte mean corpuscular hemoglobin concentration measurement (mass/volume) 33 g/dL 32-36 Automated erythrocyte distribution width ratio 14.7 % 10.0- 14.5 Automated blood platelet count (count/volume) 307 10*3/uL 130-400 Automated blood platelet mean volume measurement 10.5 [foz_us] 7.4-10.4 Automated blood neutrophils/100 leukocytes 47 % 42-75 Automated blood lymphocytes/100 leukocytes 40 % 12-44 Blood monocytes/100 leukocytes 9 % 0-12 Automated blood eosinophils/100 leukocytes 3 % 0-10 Automated blood basophils/100 leukocytes 1 % 0-10 Blood neutrophils automated count (number/volume) 4.2 10*3 1.8-7.8 Blood lymphocytes automated count (number/volume) 3.6 10*3 1.0-4.0 Blood monocytes automated count (number/volume) 0.8 10*3 0.0- 1.0 Automated eosinophil count 0.3 10*3/uL 0.0-0.3 Automated blood basophil count (count/volume) 0.1 10*3/uL 0.0-0.1 Blood lactic acid measurement (moles/volume) - 07/07/17 19:50 Blood lactic acid measurement (moles/volume) 0.98 mmol/L 0.50- 2.00 PT panel in platelet poor plasma by coagulation assay - 07/07/17 19:50 Prothrombin time (PT) in platelet poor plasma by coagulation assay 14.3 s 12.2-14.7 INR in platelet poor plasma or blood by coagulation assay 1.1 0.8-1.4 Activated partial thromboplastin time (aPTT) in platelet poor plasma bycoagulation assay - 07/07/17 19:50 Activated partial thromboplastin time (aPTT) in platelet poor plasma bycoagulation assay 29 s 24-35 Fibrin D-dimer FEU measurement in platelet poor plasma (mass/volume) - 07/07/17 19:50 Fibrin D-dimer FEU measurement in platelet poor plasma (mass/volume) 0.82 ug/mL 0.00-0.49 Comprehensive metabolic panel - 07/07/17 19:50 Serum or plasma sodium measurement (moles/volume) 142 mmol/L 135-145 Serum or plasma potassium measurement (moles/volume) 3.9 mmol/L 3.6-5.0 Serum or plasma chloride measurement (moles/volume) 113 mmol/L 98-107 Carbon dioxide 19 mmol/L 21-32 Serum or plasma anion gap determination (moles/volume) 10 mmol/L 5-14 Serum or plasma urea nitrogen measurement (mass/volume) 21 mg/dL 7-18 Serum or plasma creatinine measurement (mass/volume) 1.31 mg/dL 0.60-1.30 Serum or plasma urea nitrogen/creatinine mass ratio 16 NRG Serum or plasma creatinine measurement with calculation of estimated glomerular filtration rate 54 NRG Serum or plasma glucose measurement (mass/volume) 133 mg/dL 70-105 Serum or plasma calcium measurement (mass/volume) 9.3 mg/dL 8.5-10.1 Serum or plasma total bilirubin measurement (mass/volume) 1.7 mg/dL 0.1-1.0 Serum or plasma alkaline phosphatase measurement (enzymatic activity/volume) 158 U/L 40-136 Serum or plasma aspartate aminotransferase measurement (enzymatic activity/volume) 65 U/L 5-34 Serum or plasma alanine aminotransferase measurement (enzymatic activity/volume) 45 U/L 0-55 Serum or plasma protein measurement (mass/volume) 8.1 g/dL 6.4-8.2 Serum or plasma albumin measurement (mass/volume) 3.6 g/dL 3.2-4.5 Serum or plasma phosphate measurement (mass/volume) - 07/07/17 19:50 Serum or plasma phosphate measurement (mass/volume) 2.8 mg/dL 2.3-4.7 Magnesium - 07/07/17 19:50 Magnesium 2.0 mg/dL 1.8-2.4 Serum or plasma troponin i.cardiac measurement (mass/volume) - 07/07/17 19:50 Serum or plasma troponin i.cardiac measurement (mass/volume) < ng/mL <0.30 Ammonia - 07/07/17 19:50 Ammonia 26 umol/L 11-32 THYROID STIMULATING HORMONE - 07/07/17 19:50 THYROID STIMULATING HORMONE 2.20 u[iU]/mL 0.35-4.94 Serum or plasma C reactive protein measurement (mass/volume) - 07/07/17 19:50 Serum or plasma C reactive protein measurement (mass/volume) 0.61 mg/dL 0.00-0.50 Serum or plasma ethanol measurement (mass/volume) - 07/07/17 19:50 Serum or plasma ethanol measurement (mass/volume) < mg/dL <10 Bacterial blood culture - 07/07/17 19:50 Bacterial blood culture NG NRG Acute hepatitis panel - 07/07/17 19:50 Confirmatory quantitative serum or plasma hepatitis B virus surface antigen measurement Non-Reactive Non-Reactive Hepatitis A virus IgM antibody assay Non-Reactive Non-Reactive Hepatitis B virus core IgM antibody assay Non-Reactive Non- Reactive Serum hepatitis C virus antibody detection Non-Reactive Non- Reactive Complete urinalysis with reflex to culture - 07/07/17 20:13 Urine color determination YELLOW NRG Urine clarity determination SLIGHTLY CLOUDY NRG Urine pH measurement by test strip 5 5-9 Specific gravity of urine by test strip 1.025 1.016-1.022 Urine protein assay by test strip, semi-quantitative 2+ NEGATIVE Urine glucose detection by automated test strip NEGATIVE NEGATIVE Erythrocytes detection in urine sediment by light microscopy 4+ NEGATIVE Urine ketones detection by automated test strip NEGATIVE NEGATIVE Urine nitrite detection by test strip NEGATIVE NEGATIVE Urine total bilirubin detection by test strip NEGATIVE NEGATIVE Urine urobilinogen measurement by automated test strip (mass/volume) 1 mg/dL NORMAL Urine leukocyte esterase detection by dipstick 1+ NEGATIVE Automated urine sediment erythrocyte count by microscopy (number/high power field) [HPF] NRG Automated urine sediment leukocyte count by microscopy (number/high power field) [HPF] NRG Bacteria detection in urine sediment by light microscopy NONE NRG Squamous epithelial cells detection in urine sediment by light microscopy 2-5 NRG Crystals detection in urine sediment by light microscopy NONE NRG Casts detection in urine sediment by light microscopy NONE NRG Mucus detection in urine sediment by light microscopy NEGATIVE NRG Complete urinalysis with reflex to culture NO NRG Bacterial blood culture - 07/07/17 20:50 QUANTITY OF GROWTH . NRG Bacterial blood culture SEE COMMEN NRG Complete blood count (CBC) with automated white blood cell (WBC) differential - 07/08/17 05:25 Blood leukocytes automated count (number/volume) 7.5 10*3/uL 4.3-11.0 Blood erythrocytes automated count (number/volume) 3.94 10*6/uL 4.35-5.85 Venous blood hemoglobin measurement (mass/volume) 12.5 g/dL 13.3-17.7 Blood hematocrit (volume fraction) 38 % 40-54 Automated erythrocyte mean corpuscular volume 96 [foz_us] 80-99 Automated erythrocyte mean corpuscular hemoglobin (mass per erythrocyte) 32 pg 25-34 Automated erythrocyte mean corpuscular hemoglobin concentration measurement (mass/volume) 33 g/dL 32-36 Automated erythrocyte distribution width ratio 14.9 % 10.0- 14.5 Automated blood platelet count (count/volume) 272 10*3/uL 130-400 Automated blood platelet mean volume measurement 10.4 [foz_us] 7.4-10.4 Automated blood neutrophils/100 leukocytes 43 % 42-75 Automated blood lymphocytes/100 leukocytes 42 % 12-44 Blood monocytes/100 leukocytes 11 % 0-12 Automated blood eosinophils/100 leukocytes 4 % 0-10 Automated blood basophils/100 leukocytes 1 % 0-10 Blood neutrophils automated count (number/volume) 3.2 10*3 1.8-7.8 Blood lymphocytes automated count (number/volume) 3.2 10*3 1.0-4.0 Blood monocytes automated count (number/volume) 0.8 10*3 0.0- 1.0 Automated eosinophil count 0.3 10*3/uL 0.0-0.3 Automated blood basophil count (count/volume) 0.1 10*3/uL 0.0-0.1 Comprehensive metabolic panel - 07/08/17 05:25 Serum or plasma sodium measurement (moles/volume) 142 mmol/L 135-145 Serum or plasma potassium measurement (moles/volume) 3.5 mmol/L 3.6-5.0 Serum or plasma chloride measurement (moles/volume) 114 mmol/L 98-107 Carbon dioxide 20 mmol/L 21-32 Serum or plasma anion gap determination (moles/volume) 8 mmol/L 5-14 Serum or plasma urea nitrogen measurement (mass/volume) 20 mg/dL 7-18 Serum or plasma creatinine measurement (mass/volume) 1.19 mg/dL 0.60-1.30 Serum or plasma urea nitrogen/creatinine mass ratio 17 NRG Serum or plasma creatinine measurement with calculation of estimated glomerular filtration rate > NRG Serum or plasma glucose measurement (mass/volume) 120 mg/dL 70-105 Serum or plasma calcium measurement (mass/volume) 8.6 mg/dL 8.5-10.1 Serum or plasma total bilirubin measurement (mass/volume) 1.6 mg/dL 0.1-1.0 Serum or plasma alkaline phosphatase measurement (enzymatic activity/volume) 143 U/L 40-136 Serum or plasma aspartate aminotransferase measurement (enzymatic activity/volume) 65 U/L 5-34 Serum or plasma alanine aminotransferase measurement (enzymatic activity/volume) 43 U/L 0-55 Serum or plasma protein measurement (mass/volume) 7.2 g/dL 6.4-8.2 Serum or plasma albumin measurement (mass/volume) 3.3 g/dL 3.2-4.5 Ammonia - 07/08/17 05:25 Ammonia 37 umol/L 11-32 Capillary blood glucose measurement by glucometer (mass/volume) - 07/08/17 05:26 Capillary blood glucose measurement by glucometer (mass/volume) 110 mg/dL 70-110 Capillary blood glucose measurement by glucometer (mass/volume) - 07/08/17 10:44 Capillary blood glucose measurement by glucometer (mass/volume) 155 mg/dL 70-110 Capillary blood glucose measurement by glucometer (mass/volume) - 07/08/17 15:38 Capillary blood glucose measurement by glucometer (mass/volume) 131 mg/dL 70-110 Capillary blood glucose measurement by glucometer (mass/volume) - 07/08/17 20:44 Capillary blood glucose measurement by glucometer (mass/volume) 159 mg/dL 70-110 Complete blood count (CBC) with automated white blood cell (WBC) differential - 07/09/17 05:29 Blood leukocytes automated count (number/volume) 6.6 10*3/uL 4.3-11.0 Blood erythrocytes automated count (number/volume) 3.82 10*6/uL 4.35-5.85 Venous blood hemoglobin measurement (mass/volume) 12.4 g/dL 13.3-17.7 Blood hematocrit (volume fraction) 38 % 40-54 Automated erythrocyte mean corpuscular volume 98 [foz_us] 80-99 Automated erythrocyte mean corpuscular hemoglobin (mass per erythrocyte) 33 pg 25-34 Automated erythrocyte mean corpuscular hemoglobin concentration measurement (mass/volume) 33 g/dL 32-36 Automated erythrocyte distribution width ratio 15.2 % 10.0- 14.5 Automated blood platelet count (count/volume) 233 10*3/uL 130-400 Automated blood platelet mean volume measurement 11.7 [foz_us] 7.4-10.4 Automated blood neutrophils/100 leukocytes 44 % 42-75 Automated blood lymphocytes/100 leukocytes 39 % 12-44 Blood monocytes/100 leukocytes 11 % 0-12 Automated blood eosinophils/100 leukocytes 5 % 0-10 Automated blood basophils/100 leukocytes 1 % 0-10 Blood neutrophils automated count (number/volume) 2.9 10*3 1.8-7.8 Blood lymphocytes automated count (number/volume) 2.6 10*3 1.0-4.0 Blood monocytes automated count (number/volume) 0.7 10*3 0.0- 1.0 Automated eosinophil count 0.3 10*3/uL 0.0-0.3 Automated blood basophil count (count/volume) 0.1 10*3/uL 0.0-0.1 Comprehensive metabolic panel - 07/09/17 05:29 Serum or plasma sodium measurement (moles/volume) 143 mmol/L 135-145 Serum or plasma potassium measurement (moles/volume) 4.0 mmol/L 3.6-5.0 Serum or plasma chloride measurement (moles/volume) 117 mmol/L 98-107 Carbon dioxide 19 mmol/L 21-32 Serum or plasma anion gap determination (moles/volume) 7 mmol/L 5-14 Serum or plasma urea nitrogen measurement (mass/volume) 22 mg/dL 7-18 Serum or plasma creatinine measurement (mass/volume) 1.24 mg/dL 0.60-1.30 Serum or plasma urea nitrogen/creatinine mass ratio 18 NRG Serum or plasma creatinine measurement with calculation of estimated glomerular filtration rate 58 NRG Serum or plasma glucose measurement (mass/volume) 97 mg/dL 70-105 Serum or plasma calcium measurement (mass/volume) 8.4 mg/dL 8.5-10.1 Serum or plasma total bilirubin measurement (mass/volume) 1.3 mg/dL 0.1-1.0 Serum or plasma alkaline phosphatase measurement (enzymatic activity/volume) 140 U/L 40-136 Serum or plasma aspartate aminotransferase measurement (enzymatic activity/volume) 87 U/L 5-34 Serum or plasma alanine aminotransferase measurement (enzymatic activity/volume) 46 U/L 0-55 Serum or plasma protein measurement (mass/volume) 7.0 g/dL 6.4-8.2 Serum or plasma albumin measurement (mass/volume) 3.2 g/dL 3.2-4.5 Capillary blood glucose measurement by glucometer (mass/volume) - 07/09/17 05:33 Capillary blood glucose measurement by glucometer (mass/volume) 99 mg/dL 70-110 Capillary blood glucose measurement by glucometer (mass/volume) - 07/09/17 11:35 Capillary blood glucose measurement by glucometer (mass/volume) 149 mg/dL 70-110 Capillary blood glucose measurement by glucometer (mass/volume) - 07/09/17 15:50 Capillary blood glucose measurement by glucometer (mass/volume) 146 mg/dL 70-110 Capillary blood glucose measurement by glucometer (mass/volume) - 07/09/17 20:42 Capillary blood glucose measurement by glucometer (mass/volume) 138 mg/dL 70-110 Capillary blood glucose measurement by glucometer (mass/volume) - 07/10/17 05:24 Capillary blood glucose measurement by glucometer (mass/volume) 87 mg/dL 70-110 Automated blood complete blood count (hemogram) panel - 07/10/17 08:15 Blood leukocytes automated count (number/volume) 6.1 10*3/uL 4.3-11.0 Blood erythrocytes automated count (number/volume) 3.83 10*6/uL 4.35-5.85 Venous blood hemoglobin measurement (mass/volume) 12.2 g/dL 13.3-17.7 Blood hematocrit (volume fraction) 37 % 40-54 Automated erythrocyte mean corpuscular volume 96 [foz_us] 80-99 Automated erythrocyte mean corpuscular hemoglobin (mass per erythrocyte) 32 pg 25-34 Automated erythrocyte mean corpuscular hemoglobin concentration measurement (mass/volume) 33 g/dL 32-36 Automated erythrocyte distribution width ratio 14.4 % 10.0- 14.5 Automated blood platelet count (count/volume) 236 10*3/uL 130-400 Automated blood platelet mean volume measurement 10.5 [foz_us] 7.4-10.4 Comprehensive metabolic panel - 07/10/17 08:15 Serum or plasma sodium measurement (moles/volume) 139 mmol/L 135-145 Serum or plasma potassium measurement (moles/volume) 3.7 mmol/L 3.6-5.0 Serum or plasma chloride measurement (moles/volume) 114 mmol/L 98-107 Carbon dioxide 18 mmol/L 21-32 Serum or plasma anion gap determination (moles/volume) 7 mmol/L 5-14 Serum or plasma urea nitrogen measurement (mass/volume) 19 mg/dL 7-18 Serum or plasma creatinine measurement (mass/volume) 1.22 mg/dL 0.60-1.30 Serum or plasma urea nitrogen/creatinine mass ratio 16 NRG Serum or plasma creatinine measurement with calculation of estimated glomerular filtration rate 59 NRG Serum or plasma glucose measurement (mass/volume) 105 mg/dL 70-105 Serum or plasma calcium measurement (mass/volume) 8.6 mg/dL 8.5-10.1 Serum or plasma total bilirubin measurement (mass/volume) 1.2 mg/dL 0.1-1.0 Serum or plasma alkaline phosphatase measurement (enzymatic activity/volume) 133 U/L 40-136 Serum or plasma aspartate aminotransferase measurement (enzymatic activity/volume) 73 U/L 5-34 Serum or plasma alanine aminotransferase measurement (enzymatic activity/volume) 45 U/L 0-55 Serum or plasma protein measurement (mass/volume) 7.1 g/dL 6.4-8.2 Serum or plasma albumin measurement (mass/volume) 3.2 g/dL 3.2-4.5 Capillary blood glucose measurement by glucometer (mass/volume) - 07/10/17 10:58 Capillary blood glucose measurement by glucometer (mass/volume) 138 mg/dL 70-110 Capillary blood glucose measurement by glucometer (mass/volume) - 07/10/17 16:12 Capillary blood glucose measurement by glucometer (mass/volume) 179 mg/dL 70-110 Capillary blood glucose measurement by glucometer (mass/volume) - 07/10/17 20:41 Capillary blood glucose measurement by glucometer (mass/volume) 153 mg/dL 70-110 Capillary blood glucose measurement by glucometer (mass/volume) - 07/11/17 05:22 Capillary blood glucose measurement by glucometer (mass/volume) 94 mg/dL 70-110 Automated blood complete blood count (hemogram) panel - 07/11/17 05:55 Blood leukocytes automated count (number/volume) 6.4 10*3/uL 4.3-11.0 Blood erythrocytes automated count (number/volume) 3.76 10*6/uL 4.35-5.85 Venous blood hemoglobin measurement (mass/volume) 12.0 g/dL 13.3-17.7 Blood hematocrit (volume fraction) 36 % 40-54 Automated erythrocyte mean corpuscular volume 95 [foz_us] 80-99 Automated erythrocyte mean corpuscular hemoglobin (mass per erythrocyte) 32 pg 25-34 Automated erythrocyte mean corpuscular hemoglobin concentration measurement (mass/volume) 34 g/dL 32-36 Automated erythrocyte distribution width ratio 14.5 % 10.0- 14.5 Automated blood platelet count (count/volume) 233 10*3/uL 130-400 Automated blood platelet mean volume measurement 10.8 [foz_us] 7.4-10.4 Comprehensive metabolic panel - 07/11/17 05:55 Serum or plasma sodium measurement (moles/volume) 140 mmol/L 135-145 Serum or plasma potassium measurement (moles/volume) 3.6 mmol/L 3.6-5.0 Serum or plasma chloride measurement (moles/volume) 114 mmol/L 98-107 Carbon dioxide 17 mmol/L 21-32 Serum or plasma anion gap determination (moles/volume) 9 mmol/L 5-14 Serum or plasma urea nitrogen measurement (mass/volume) 14 mg/dL 7-18 Serum or plasma creatinine measurement (mass/volume) 1.07 mg/dL 0.60-1.30 Serum or plasma urea nitrogen/creatinine mass ratio 13 NRG Serum or plasma creatinine measurement with calculation of estimated glomerular filtration rate > NRG Serum or plasma glucose measurement (mass/volume) 95 mg/dL 70-105 Serum or plasma calcium measurement (mass/volume) 8.6 mg/dL 8.5-10.1 Serum or plasma total bilirubin measurement (mass/volume) 1.0 mg/dL 0.1-1.0 Serum or plasma alkaline phosphatase measurement (enzymatic activity/volume) 132 U/L 40-136 Serum or plasma aspartate aminotransferase measurement (enzymatic activity/volume) 71 U/L 5-34 Serum or plasma alanine aminotransferase measurement (enzymatic activity/volume) 45 U/L 0-55 Serum or plasma protein measurement (mass/volume) 6.9 g/dL 6.4-8.2 Serum or plasma albumin measurement (mass/volume) 3.2 g/dL 3.2-4.5 Urine drug screening test - 07/11/17 08:30 Urine phencyclidine detection by screening method NEGATIVE NEGATIVE Urine benzodiazepines detection by screening method NEGATIVE NEGATIVE Urine cocaine detection NEGATIVE NEGATIVE Urine amphetamines detection by screening method NEGATIVE NEGATIVE Urine methamphetamine detection by screening method NEGATIVE NEGATIVE Urine cannabinoids detection by screening method NEGATIVE NEGATIVE Urine opiates detection by screening method NEGATIVE NEGATIVE Urine barbiturates detection NEGATIVE NEGATIVE Screening urine tricyclic antidepressants detection NEGATIVE NEGATIVE Urine methadone detection by screening method NEGATIVE NEGATIVE Urine oxycodone detection NEGATIVE NEGATIVE Urine propoxyphene detection NEGATIVE NEGATIVE Capillary blood glucose measurement by glucometer (mass/volume) - 07/11/17 11:01 Capillary blood glucose measurement by glucometer (mass/volume) 151 mg/dL 70-110 Complete blood count (CBC) with automated white blood cell (WBC) differential - 07/28/17 16:57 Blood leukocytes automated count (number/volume) 6.0 10*3/uL 4.3-11.0 Blood erythrocytes automated count (number/volume) 4.05 10*6/uL 4.35-5.85 Venous blood hemoglobin measurement (mass/volume) 13.2 g/dL 13.3-17.7 Blood hematocrit (volume fraction) 39 % 40-54 Automated erythrocyte mean corpuscular volume 97 [foz_us] 80-99 Automated erythrocyte mean corpuscular hemoglobin (mass per erythrocyte) 33 pg 25-34 Automated erythrocyte mean corpuscular hemoglobin concentration measurement (mass/volume) 34 g/dL 32-36 Automated erythrocyte distribution width ratio 14.7 % 10.0- 14.5 Automated blood platelet count (count/volume) 219 10*3/uL 130-400 Automated blood platelet mean volume measurement 10.5 [foz_us] 7.4-10.4 Automated blood neutrophils/100 leukocytes 45 % 42-75 Automated blood lymphocytes/100 leukocytes 36 % 12-44 Blood monocytes/100 leukocytes 15 % 0-12 Automated blood eosinophils/100 leukocytes 4 % 0-10 Automated blood basophils/100 leukocytes 1 % 0-10 Blood neutrophils automated count (number/volume) 2.7 10*3 1.8-7.8 Blood lymphocytes automated count (number/volume) 2.1 10*3 1.0-4.0 Blood monocytes automated count (number/volume) 0.9 10*3 0.0- 1.0 Automated eosinophil count 0.2 10*3/uL 0.0-0.3 Automated blood basophil count (count/volume) 0.0 10*3/uL 0.0-0.1 Comprehensive metabolic panel - 07/28/17 16:57 Serum or plasma sodium measurement (moles/volume) 135 mmol/L 135-145 Serum or plasma potassium measurement (moles/volume) 5.0 mmol/L 3.6-5.0 Serum or plasma chloride measurement (moles/volume) 107 mmol/L 98-107 Carbon dioxide 19 mmol/L 21-32 Serum or plasma anion gap determination (moles/volume) 9 mmol/L 5-14 Serum or plasma urea nitrogen measurement (mass/volume) 19 mg/dL 7-18 Serum or plasma creatinine measurement (mass/volume) 1.50 mg/dL 0.60-1.30 Serum or plasma urea nitrogen/creatinine mass ratio 13 NRG Serum or plasma creatinine measurement with calculation of estimated glomerular filtration rate 46 NRG Serum or plasma glucose measurement (mass/volume) 324 mg/dL 70-105 Serum or plasma calcium measurement (mass/volume) 8.9 mg/dL 8.5-10.1 Serum or plasma total bilirubin measurement (mass/volume) 0.7 mg/dL 0.1-1.0 Serum or plasma alkaline phosphatase measurement (enzymatic activity/volume) 178 U/L 40-136 Serum or plasma aspartate aminotransferase measurement (enzymatic activity/volume) 55 U/L 5-34 Serum or plasma alanine aminotransferase measurement (enzymatic activity/volume) 43 U/L 0-55 Serum or plasma protein measurement (mass/volume) 7.5 g/dL 6.4-8.2 Serum or plasma albumin measurement (mass/volume) 3.5 g/dL 3.2-4.5 Ammonia - 07/28/17 16:57 Ammonia 67 umol/L 11-32 REFLEX TIQ - 07/29/17 12:05 REFLEX TIQ NRG Automated blood complete blood count (hemogram) panel - 09/09/17 07:41 Blood leukocytes automated count (number/volume) 8.4 10*3/uL 4.3-11.0 Blood erythrocytes automated count (number/volume) 4.03 10*6/uL 4.35-5.85 Venous blood hemoglobin measurement (mass/volume) 13.2 g/dL 13.3-17.7 Blood hematocrit (volume fraction) 39 % 40-54 Automated erythrocyte mean corpuscular volume 97 [foz_us] 80-99 Automated erythrocyte mean corpuscular hemoglobin (mass per erythrocyte) 33 pg 25-34 Automated erythrocyte mean corpuscular hemoglobin concentration measurement (mass/volume) 34 g/dL 32-36 Automated erythrocyte distribution width ratio 14.0 % 10.0- 14.5 Automated blood platelet count (count/volume) 290 10*3/uL 130-400 Automated blood platelet mean volume measurement 9.9 [foz_us] 7.4-10.4 PT panel in platelet poor plasma by coagulation assay - 09/09/17 07:41 Prothrombin time (PT) in platelet poor plasma by coagulation assay 13.6 s 12.2-14.7 INR in platelet poor plasma or blood by coagulation assay 1.0 0.8-1.4 Activated partial thromboplastin time (aPTT) in platelet poor plasma bycoagulation assay - 09/09/17 07:41 Activated partial thromboplastin time (aPTT) in platelet poor plasma bycoagulation assay 29 s 24-35 Capillary blood glucose measurement by glucometer (mass/volume) - 09/09/17 07:42 Capillary blood glucose measurement by glucometer (mass/volume) 115 mg/dL 70-110 AMMONIA - 11/20/17 10:42 AMMONIA (P) 53 umol/L < OR=47 CMP - 07/01/18 11:04 GLUCOSE 132 mg/dL 65-99 UREA NITROGEN (BUN) 21 mg/dL 7-25 CREATININE 1.62 mg/dL 0.70-1.18 eGFR NON-AFR. CHINESE 42 mL/min/1.73m2 > OR=60 eGFR 49 mL/min/1.73m2 > OR=60 BUN/CREATININE RATIO 13 (calc) 6-22 SODIUM 139 mmol/L 135-146 POTASSIUM 5.1 mmol/L 3.5-5.3 CHLORIDE 107 mmol/L 98-110 CARBON DIOXIDE 24 mmol/L 20-32 CALCIUM 8.9 mg/dL 8.6-10.3 PROTEIN, TOTAL 7.0 g/dL 6.1-8.1 ALBUMIN 3.5 g/dL 3.6-5.1 GLOBULIN 3.5 g/dL (calc) 1.9-3.7 ALBUMIN/GLOBULIN RATIO 1.0 (calc) 1.0-2.5 BILIRUBIN, TOTAL 1.0 mg/dL 0.2-1.2 ALKALINE PHOSPHATASE 116 U/L 40-115 AST 43 U/L 10-35 ALT 24 U/L 9-46 CMP - 11/23/18 15:04 GLUCOSE 164 mg/dL 65-99 UREA NITROGEN (BUN) 27 mg/dL 7-25 CREATININE 1.45 mg/dL 0.70-1.18 eGFR NON-AFR. [place] 48 mL/min/1.73m2 > OR=60 eGFR 56 mL/min/1.73m2 > OR=60 BUN/CREATININE RATIO 19 (calc) 6-22 SODIUM 137 mmol/L 135-146 POTASSIUM 4.9 mmol/L 3.5-5.3 CHLORIDE 102 mmol/L 98-110 CARBON DIOXIDE 27 mmol/L 20-32 CALCIUM 10.5 mg/dL 8.6-10.3 PROTEIN, TOTAL 7.5 g/dL 6.1-8.1 ALBUMIN 3.8 g/dL 3.6-5.1 GLOBULIN 3.7 g/dL (calc) 1.9-3.7 ALBUMIN/GLOBULIN RATIO 1.0 (calc) 1.0-2.5 BILIRUBIN, TOTAL 1.2 mg/dL 0.2-1.2 ALKALINE PHOSPHATASE 107 U/L 40-115 AST 43 U/L 10-35 ALT 26 U/L 9-46 CBC - 11/23/18 15:04 WHITE BLOOD CELL COUNT 6.6 Thousand/uL 3.8-10.8 RED BLOOD CELL COUNT 4.46 Million/uL 4.20-5.80 HEMOGLOBIN 14.7 g/dL 13.2-17.1 HEMATOCRIT 42.9 % 38.5-50.0 MCV 96.2 fL 80.0-100.0 MCH 33.0 pg 27.0-33.0 MCHC 34.3 g/dL 32.0-36.0 RDW 13.8 % 11.0-15.0 PLATELET COUNT 271 Thousand/uL 140-400 MPV 11.4 fL 7.5-12.5 ABSOLUTE NEUTROPHILS 3227 cells/uL 6609-5291 ABSOLUTE LYMPHOCYTES 2244 cells/uL 850-3900 ABSOLUTE MONOCYTES 766 cells/uL 200-950 ABSOLUTE EOSINOPHILS 290 cells/uL 15-500 ABSOLUTE BASOPHILS 73 cells/uL 0-200 NEUTROPHILS 48.9 % NRG LYMPHOCYTES 34.0 % NRG MONOCYTES 11.6 % NRG EOSINOPHILS 4.4 % NRG BASOPHILS 1.1 % NRG PT/INR - 02/17/19 14:30 INR 1.1 NRG PT 11.3 sec 9.0-11.5 DIFFERENTIAL, MANUAL - 02/17/19 14:30 ABSOLUTE NEUTROPHILS 3906 cells/uL 8238-3732 ABSOLUTE MONOCYTES 558 cells/uL 200-950 ABSOLUTE EOSINOPHILS 186 cells/uL 15-500 ABSOLUTE BASOPHILS 0 cells/uL 0-200 NEUTROPHILS 63.0 % NRG LYMPHOCYTES 25.0 % NRG MONOCYTES 9.0 % NRG EOSINOPHILS 3.0 % NRG BASOPHILS 0 % NRG ABSOLUTE LYMPHOCYTES 1550 cells/uL 850-3900 PLATELET ESTIMATION ADEQUATE ADEQUATE CBC MORPHOLOGY NORMAL Complete blood count (CBC) with automated white blood cell (WBC) differential - 04/03/19 09:57 Blood leukocytes automated count (number/volume) 5.4 10*3/uL 4.3-11.0 Blood erythrocytes automated count (number/volume) 3.79 10*6/uL 4.35-5.85 Venous blood hemoglobin measurement (mass/volume) 12.8 g/dL 13.3-17.7 Blood hematocrit (volume fraction) 38 % 40-54 Automated erythrocyte mean corpuscular volume 100 [foz_us] 80-99 Automated erythrocyte mean corpuscular hemoglobin (mass per erythrocyte) 34 pg 25-34 Automated erythrocyte mean corpuscular hemoglobin concentration measurement (mass/volume) 34 g/dL 32-36 Automated erythrocyte distribution width ratio 14.3 % 10.0- 14.5 Automated blood platelet count (count/volume) 207 10*3/uL 130-400 Automated blood platelet mean volume measurement 9.9 [foz_us] 7.4-10.4 Automated blood neutrophils/100 leukocytes 55 % 42-75 Automated blood lymphocytes/100 leukocytes 29 % 12-44 Blood monocytes/100 leukocytes 12 % 0-12 Automated blood eosinophils/100 leukocytes 3 % 0-10 Automated blood basophils/100 leukocytes 1 % 0-10 Blood neutrophils automated count (number/volume) 3.0 10*3 1.8-7.8 Blood lymphocytes automated count (number/volume) 1.6 10*3 1.0-4.0 Blood monocytes automated count (number/volume) 0.7 10*3 0.0- 1.0 Automated eosinophil count 0.2 10*3/uL 0.0-0.3 Automated blood basophil count (count/volume) 0.0 10*3/uL 0.0-0.1 PT panel in platelet poor plasma by coagulation assay - 04/03/19 09:57 Prothrombin time (PT) in platelet poor plasma by coagulation assay 14.3 s 12.2-14.7 INR in platelet poor plasma or blood by coagulation assay 1.1 0.8-1.4 Activated partial thromboplastin time (aPTT) in platelet poor plasma bycoagulation assay - 04/03/19 09:57 Activated partial thromboplastin time (aPTT) in platelet poor plasma bycoagulation assay 32 s 24-35 Comprehensive metabolic panel - 04/03/19 09:57 Serum or plasma sodium measurement (moles/volume) 136 mmol/L 135-145 Serum or plasma potassium measurement (moles/volume) 4.3 mmol/L 3.6-5.0 Serum or plasma chloride measurement (moles/volume) 107 mmol/L 98-107 Carbon dioxide 21 mmol/L 21-32 Serum or plasma anion gap determination (moles/volume) 8 mmol/L 5-14 Serum or plasma urea nitrogen measurement (mass/volume) 17 mg/dL 7-18 Serum or plasma creatinine measurement (mass/volume) 1.24 mg/dL 0.60-1.30 Serum or plasma urea nitrogen/creatinine mass ratio 14 NRG Serum or plasma creatinine measurement with calculation of estimated glomerular filtration rate 57 NRG Serum or plasma glucose measurement (mass/volume) 154 mg/dL 70-105 Serum or plasma calcium measurement (mass/volume) 8.5 mg/dL 8.5-10.1 Serum or plasma total bilirubin measurement (mass/volume) 0.7 mg/dL 0.1-1.0 Serum or plasma alkaline phosphatase measurement (enzymatic activity/volume) 100 U/L 40-136 Serum or plasma aspartate aminotransferase measurement (enzymatic activity/volume) 44 U/L 5-34 Serum or plasma alanine aminotransferase measurement (enzymatic activity/volume) 28 U/L 0-55 Serum or plasma protein measurement (mass/volume) 6.6 g/dL 6.4-8.2 Serum or plasma albumin measurement (mass/volume) 3.2 g/dL 3.2-4.5 CALCIUM CORRECTED 9.1 mg/dL 8.5-10.1 Magnesium - 04/03/19 09:57 Magnesium 1.8 mg/dL 1.8-2.4 Serum or plasma creatine kinase measurement (enzymatic activity/volume) - 04/03/19 09:57 Serum or plasma creatine kinase measurement (enzymatic activity/volume) 40 U/L 30-200 Serum or plasma creatine kinase MB measurement (enzymatic activity/volume) - 04/03/19 09:57 Serum or plasma creatine kinase MB measurement (enzymatic activity/volume) 1.2 ng/mL <6.6 Serum or plasma troponin i.cardiac measurement (mass/volume) - 04/03/19 09:57 Serum or plasma troponin i.cardiac measurement (mass/volume) < ng/mL <0.028 Myoglobin, serum - 04/03/19 09:57 Myoglobin, serum 40.6 ng/mL 10.0-92.0 Serum or plasma amylase measurement (enzymatic activity/volume) - 04/03/19 09:57 Serum or plasma amylase measurement (enzymatic activity/volume) 85 U/L 25-125 Lipase - 04/03/19 09:57 Lipase 117 U/L 8-78 Serum or plasma lithium measurement (moles/volume) - 04/03/19 09:57 BNP PT 246.3 pg/mL <100.0 Encounters ACCT No. Visit Date/Time Discharge Status Pt. Type Provider Facility Loc./Unit Complaint [id number] 04/07/2019 14:00:00 04/07/2019 23:59:59 CLS Outpatient RONALD MONROY MD [facility] [id number] 02/17/2019 11:40:00 Document Registration [id number] 11/23/2018 13:20:00 Document Registration [id number] 07/01/2018 10:20:00 Document Registration [id number] 11/20/2017 09:30:00 Document Registration [id number] 07/29/2017 11:00:00 Document Registration [id number] 04/03/2019 09:58:00 04/03/2019 13:00:00 DIS Emergency PURA DODONNY [facility] ER CHEST PAIN [id number] 04/16/2018 08:29:00 04/16/2018 23:59:59 CLS Preadmit KITA GÓMEZ MD [facility] WOUNDCARE [id number] 01/15/2018 07:32:00 01/15/2018 23:59:59 CLS Outpatient RONALD MONROY MD [facility] CARD PRECORDIAL PAIN [id number] 09/09/2017 07:16:00 09/09/2017 13:10:00 DIS Outpatient RONALD MONROY MD [facility] RAD K74.60 CIRRHOSIS OF LIVER WIHTOU ASCITES, [id number] 07/30/2017 07:51:00 07/30/2017 23:59:59 CLS Preadmit RONALD MONROY MD [facility] RAD CIRRHOSIS OF LIVER WO ASCITES [id number] 07/28/2017 16:52:00 07/28/2017 23:59:59 CLS Outpatient SAHIL BEACH APRN [facility] LAB R11.2 [id number] 07/07/2017 22:16:00 07/11/2017 12:00:00 DIS Inpatient LATRELL AMEZQUITA MD [facility] 4TH ACUTE ENCEPHALOPATHY,HEPATITIS,HEMATURIA [id number] 05/22/2017 21:26:00 05/23/2017 00:02:00 DIS Emergency EMELY BREEN Liz DODGE [facility] ER HEADACHE;TROUBLE SLEEPING;NAUSEA [id number] 06/26/2015 08:15:00 06/26/2015 23:59:59 CLS Outpatient RICH AMAYA [facility] RAD ABDOMINAL PAIN [id number] 12/18/2013 13:27:00 12/18/2013 23:59:59 CLS Outpatient KIM RINALDI [facility] RAD SHORTNESS OF BREATH BRONCHITIS [id number] 11/14/2014 10:26:00 11/14/2014 23:59:59 CLS Outpatient CLAUDY DODGE MYRON Rickey [id number] 11/07/2014 09:48:00 11/07/2014 23:59:59 CLS Outpatient MYRON LOCO APRN [id number] 08/26/2014 09:31:00 08/26/2014 23:59:59 CLS Outpatient MYRON LOCO APRN [id number] 07/27/2014 10:14:00 07/27/2014 23:59:59 CLS Outpatient MYRON LOCO APRN [id number] 07/13/2014 14:16:00 07/13/2014 23:59:59 CLS Outpatient MYRON LOCO APRN [id number] 07/01/2014 09:18:00 07/01/2014 23:59:59 CLS Outpatient MYRON LOCO APRN [id number] 06/24/2014 10:02:00 06/24/2014 23:59:59 CLS Outpatient MYRON LOCO APRN [id number] 04/08/2014 09:03:00 04/08/2014 23:59:59 CLS Outpatient MYRON LOCO APRN [id number] 03/07/2014 10:18:00 03/07/2014 23:59:59 CLS Outpatient MYRON LOCO APRN [id number] 02/04/2014 09:32:00 02/04/2014 23:59:59 CLS Outpatient MYRON LOCO APRN [id number] 02/04/2014 09:32:00 02/04/2014 23:59:59 CLS Outpatient MYRON LOCO APRN [id number] 01/12/2014 10:04:00 01/12/2014 23:59:59 CLS Outpatient MYRON LOCO APRN [id number] 01/12/2014 10:04:00 01/12/2014 23:59:59 CLS Outpatient MYRON LOCO APRN [id number] 12/27/2013 10:35:00 12/27/2013 23:59:59 CLS Outpatient MYRON LOCO APRN [id number] 12/18/2013 11:53:00 12/18/2013 23:59:59 CLS Outpatient DENICE MEDINA DO [id number] 11/19/2013 10:09:00 11/19/2013 23:59:59 CLS Outpatient MYRON LOCO APRN [id number] 11/19/2013 10:09:00 11/19/2013 23:59:59 CLS Outpatient MYRON LOCO APRN [id number] 08/25/2013 08:25:00 08/25/2013 23:59:59 CLS Outpatient MYRON LOCO APRN [id number] 08/16/2013 09:33:00 08/16/2013 23:59:59 CLS Outpatient MYRON LOCO APRN [id number] 07/14/2013 10:37:00 07/14/2013 23:59:59 CLS Outpatient MYRON LOCO APRN [id number] 06/30/2013 09:48:00 06/30/2013 23:59:59 CLS Outpatient MYRON LOCO APRN [id number] 03/16/2013 13:39:00 03/16/2013 23:59:59 CLS Outpatient MYRON LOCO APRN [id number] 11/25/2012 10:42:00 11/25/2012 23:59:59 CLS Outpatient MYRON LOCO APRN [id number] 11/11/2012 10:24:00 11/11/2012 23:59:59 CLS Outpatient [id number] 10/12/2012 10:00:00 10/12/2012 23:59:59 CLS Outpatient [id number] 09/28/2012 13:54:00 09/28/2012 23:59:59 CLS Outpatient MYRON LOCO APRN [id number] 09/23/2012 11:48:00 09/23/2012 23:59:59 CLS Outpatient [id number] 09/18/2012 08:42:00 09/18/2012 23:59:59 CLS Outpatient [id number] 09/11/2012 10:08:00 09/11/2012 23:59:59 CLS Outpatient MYRON LOCO APRN [id number] 08/14/2012 09:09:00 08/14/2012 23:59:59 CLS Outpatient MYRON LOCO APRN [id number] 08/14/2012 09:09:00 08/14/2012 23:59:59 CLS Outpatient [id number] 03/08/2013 10:02:00 Document Registration [id number] 01/20/2013 10:47:00 Document Registration
--- NOTE | 2019-04-25 17:35 | ED Lower Extremity ---
General Chief Complaint: Skin/Wound Problems Stated Complaint: BILAT FOOT PAIN History of Present Illness Date Seen by Provider: Apr 25, 2019 Time Seen by Provider: 17:10 Initial Comments 69 year old type 2 diabetic, insulin dependent, reports over the last 3-4 days noticed blood on his socks and today some took a picture of the plantar surface of his feet and noted ulcers to multiple toes on both feet. He denies any injury and has been wearing insulated moccasins regularly, to keep pressure off his fee t. He was seen here earlier this month for chest pain and found to have an ascending aortic aneurysm, transferred to [place], [place] and evaluated. He reports the surgeons recommended observation for the time being and he will follow with cardiology. He reports his glucose has been 120-140 most mornings. He is not taking any blood thinners. Onset: other (3-4 days) Pain/Injury Location: right foot; bilateral 1st toe, bilateral 2nd toe, bilateral 3rd toe, bilateral 4th toe, bilateral 5th toe; right other (medial aspect right foot) Method of Injury: unknown Allergies and Home Medications Allergies Coded Allergies: NKANo Known Allergies (Verified Allergy, Unknown, 01/15/07) acetaminophen (Verified Adverse Reaction, Unknown, told not to take d/t Liver function, 09/09/17) LIVER PROBLEMS Home Medications Albuterol Sulfate 1 Puff Puff, 2 PUFF IH QID, (Reported) 1 PUFF = 90 MCG Atorvastatin Calcium 20 Mg Tablet, 20 MG PO HS, (Reported) Insulin Aspart 300 Units/3 Ml Solution, 5 UNITS SQ AC Prescribed by: LATRELL AMEZQUITA on 07/11/17850 Insulin Detemir 100 Unit/1 Ml Insuln.pen, 30 UNITS SQ HS Prescribed by: LATRELL AMEZQUITA on 07/11/17850 Lactulose 20 Gm/30 Ml Solution, 10 GM PO DAILY Prescribed by: LATRELL AMEZQUITA on 07/11/17850 Lisinopril 20 Mg Tablet, 20 MG PO DAILY Prescribed by: LATRELL AMEZQUITA on 07/11/17850 Metoprolol Tartrate 50 Mg Tablet, 50 MG PO BID, (Reported) Omeprazole 20 Mg Capsule.dr, 20 MG PO DAILY, (Reported) Ondansetron HCl 4 Mg Tablet, 4 MG PO TID, (Reported) Patient Home Medication List Home Medication List Reviewed: Yes Review of Systems Constitutional: no symptoms reported, see HPI; No chills, No diaphoresis, No fever, No malaise, No weakness, No weight gain, No weight loss Skin: see HPI, change in color, lesions (diabetic pressure ulcers bilateral toes) All Other Systems Reviewed Negative Unless Noted: Yes Past Lnvlrrp-Nenmjh-Xvlatl Hx Past Med/Social Hx: Reviewed Nursing Past Med/Soc Hx Patient Social History Alcohol Use: Past History Drug of Choice: THC Smoking Status: Former Smoker Type Used: Cigarettes 2nd Hand Smoke Exposure: No Recent Foreign Travel: No Contact w/Someone Who Travel: No Recent Hopitalizations: Yes (MULTI E.D. VISITS/RECENT DC FROM [facility]) Physical Abuse: No Sexual Abuse: No Mistreated: No Fear: No Immunizations Up To Date Tetanus Booster (TDap): Unknown Seasonal Allergies Seasonal Allergies: No Past Medical History Surgeries: Yes (LIVER BIOPSY X 2; HERNIA REPAIR) Abdominal Respiratory: Yes COPD Currently Using CPAP: No Currently Using BIPAP: No Cardiac: Yes Aneurysm, High Cholesterol, Hypertension Neurological: Yes Dementia, Headaches /Migraines Reproductive Disorders: No Genitourinary: No Gastrointestinal: Yes Gastroesophageal Reflux, Liver Disease/Jaundice, Cirrhosis Musculoskeletal: Yes (CARPAL TUNNEL SYNDROME) Arthritis, Chronic Back Pain Endocrine: Yes Diabetes, Insulin dep HEENT: No Cancer: No Psychosocial: Yes Sleep Difficulties Integumentary: No Blood Disorders: No Family Medical History Deafness or hearing loss 19 MOTHER, Onset:Unknown Diabetes mellitus 19 FATHER, Onset:Unknown G8 BROTHER, Onset:Unknown G8 SISTER, Onset:Unknown Hypertension 19 FATHER, Onset:Unknown G8 SISTER, Onset:Unknown Diabetes, Hypertension, Other Conditions/Hx Physical Exam Vital Signs Vital Signs - First Documented 04/25/19 04/25/19 16:48 18:00 Temp 100.5 Pulse 70 Resp 18 B/P (MAP) 113/54 (73) Pulse Ox 98 O2 Delivery Room Air Capillary Refill : Height, Weight, BMI Height: 5'9.00" Weight: 240lbs. 0.0oz. 108.264283sj; 34.7 BMI Method:Stated General Appearance: WD/WN, no apparent distress Neck: non-tender, full range of motion, supple, normal inspection Cardiovascular: normal peripheral pulses, regular rate, rhythm Respiratory: chest non-tender, lungs clear, normal breath sounds Gastrointestinal: normal bowel sounds, non tender, soft Hips: bilateral hip non-tender, bilateral hip normal range of motion Ankles: bilateral ankle limited range of motion (secondary to pain), bilateral ankle pain, bilateral ankle soft tissue tenderness, bilateral ankle swelling Feet: bilateral foot limited range of motion (secondary to pain and swelling), bilateral foot soft tissue tenderness, bilateral foot swelling, bilateral foot other (grade 1-2 pressure ulcers bilateral toes plantar surfaces, malodorous with serosanguineous drainage) Neurologic/Tendon: normal sensation, normal motor functions, normal tendon functions Neurologic/Psychiatric: no motor/sensory deficits, alert, normal mood/affect, oriented x 3 Skin: normal color, warm/dry Bilateral feet and ankle swelling, warmth and mild erythema. Sensation intact to light touch. Pedal pulses 2+ and symmetric, cap refill less than 2 seconds. Ulcers bilat feet, plantar surfaces (cm): Right Foot (all grade 2 pressure ulcer, except 5th toe and medial) 1st: 10x10 2nd 20x5 3rd 15x8 4th 6x10 5th 10x8 (Grade 1) Medial Aspect over Metatarsal: 35x5 Grade 1 Left Foot (all grade 2 pressure ulcers) 1st 40x25 2nd 7x17 3rd 10x22 4th 8x5 5th 8x2 Progress/Results/Core Measures Results/Orders Lab Results Laboratory Tests Test 04/25/19 17:00 04/25/19 17:04 Range/Units White Blood Count 7.7 4.3-11.0 10^3/uL Red Blood Count 3.62 L 4.35-5.85 10^6/uL Hemoglobin 12.4 L 13.3-17.7 G/DL Hematocrit 36 L 40-54 % Mean Corpuscular Volume 100 H 80-99 FL Mean Corpuscular Hemoglobin 34 25-34 PG Mean Corpuscular Hemoglobin Concent 34 32-36 G/DL Red Cell Distribution Width 14.4 10.0-14.5 % Platelet Count 193 130-400 10^3/uL Mean Platelet Volume 10.4 7.4-10.4 FL Neutrophils (%) (Auto) 57 42-75 % Lymphocytes (%) (Auto) 27 12-44 % Monocytes (%) (Auto) 13 H 0-12 % Eosinophils (%) (Auto) 3 0-10 % Basophils (%) (Auto) 0 0-10 % Neutrophils # (Auto) 4.4 1.8-7.8 X 10^3 Lymphocytes # (Auto) 2.1 1.0-4.0 X 10^3 Monocytes # (Auto) 1.0 0.0-1.0 X 10^3 Eosinophils # (Auto) 0.2 0.0-0.3 10^3/uL Basophils # (Auto) 0.0 0.0-0.1 10^3/uL Prothrombin Time 14.9 H 12.2-14.7 SEC INR Comment 1.1 0.8-1.4 Activated Partial Thromboplast Time 36 H 24-35 SEC Sodium Level 134 L 135-145 MMOL/L Potassium Level 4.4 3.6-5.0 MMOL/L Chloride Level 108 H 98-107 MMOL/L Carbon Dioxide Level 19 L 21-32 MMOL/L Anion Gap 7 5-14 MMOL/L Blood Urea Nitrogen 15 7-18 MG/DL Creatinine 1.41 H 0.60-1.30 MG/DL Estimat Glomerular Filtration Rate 50 BUN/Creatinine Ratio 11 Glucose Level 96 70-105 MG/DL Lactic Acid Level 1.48 0.50-2.00 MMOL/L Calcium Level 8.2 L 8.5-10.1 MG/DL Corrected Calcium 9.0 8.5-10.1 MG/DL Total Bilirubin 1.6 H 0.1-1.0 MG/DL Aspartate Amino Transf (AST/SGOT) 38 H 5-34 U/L Alanine Aminotransferase (ALT/SGPT) 27 0-55 U/L Alkaline Phosphatase 115 40-136 U/L Total Protein 6.5 6.4-8.2 GM/DL Albumin 3.0 L 3.2-4.5 GM/DL Glucometer 97 70-110 MG/DL My Orders Orders - LUKE NELSON Cbc With Automated Diff (04/25/19 17:01) Comprehensive Metabolic Panel (04/25/19 17:01) Blood Culture (04/25/19 17:01) Urinalysis (04/25/19 17:01) Protime With Inr (04/25/19 17:01) Partial Thromboplastin Time (04/25/19 17:01) Ed Iv/Invasive Line Start (04/25/19 17:01) Ns Iv 1000 Ml (Sodium Chloride 0.9%) (04/25/19 17:01) Wound Culture (04/25/19 17:01) Lactic Acid Analyzer (04/25/19 17:01) Wound Culture (04/25/19 17:02) Ibuprofen Tablet (Motrin Tablet) (04/25/19 17:15) Foot, Bilateral, 3 View (04/25/19 17:04) Piperacillin Sodium/Tazobactam (Zosyn Vi (04/25/19 18:15) Medications Given in ED Current Medications Medications Dose Ordered Sig/Marly Route Start Time Stop Time Status Last Admin Dose Admin Ibuprofen 600 mg ONCE ONCE PO 04/25/19 17:15 04/25/19 17:16 DC 04/25/19 17:11 600 MG Piperacillin Sod/ Tazobactam Sod 4.5 gm/Sodium Chloride 100 ml @ 200 mls/hr ONCE ONCE IV 04/25/19 18:15 04/25/19 18:44 DC 04/25/19 18:24 200 MLS/HR Vital Signs/I&O 04/25/19 04/25/19 04/25/19 04/25/19 16:48 17:11 17:35 18:00 Temp 100.5 100.5 100.5 99.8 Pulse 70 78 75 Resp 18 18 18 B/P (MAP) 113/54 (73) 129/53 Pulse Ox 98 O2 Delivery Room Air Progress Progress Note : Time: 17:10 Progress Note Patient and evaluated, we'll obtain x-rays of the toes, as well as labs. Normal Saline 1 L IV. Ibuprofen 600 mg. 1800 measurements taken of all ulcers, Zosyn 4.5 mg I.V. Wounds cleansed with Sterile Saline, Hibiclens and dry dressings applied. Patient tolerated well. 1814 Temp 99.8. Labs and x-rays essentially normal. [address] Kinney, agreed with admission plans. Barrel Brander notified, will need to hold in ED until 1929. 1914 she continues to be afebrile, no requests at this time. Diagnostic Imaging Diagonstic Imaging: Xray Plain Films/CT/US/NM/MRI: other (feet) Comments NAME: MARYAM CHI [facility] REC#: [id number] PT STATUS: REG ER : 1950 PHYSICIAN: LUKE NELSON ADMIT DATE: 04/25/19/ER Draft Date of Exam:04/25/19 FOOT, BILATERAL, 3 VIEW INDICATION: Pain and swelling, bilateral. EXAMINATION: Three views of bilateral feet. FINDINGS: No fracture, dislocation, bony destructive process, abnormal parosteal reaction, gas or fracture. In the plantar aspect of the right foot there is a questionable 8 mm length linear metallic opacity in the plantar soft tissues, laterally, seen on the oblique and lateral radiograph. This could be film artifact or a small soft tissue foreign body. No regional swelling or gas associated with this indeterminate density is apparent. IMPRESSION: No acute bony pathology. No focal swelling or gas artifact versus tiny metallic density linear foreign body, laterally. Plantar soft tissues right midfoot. Dictated on workstation # [id number] Dict: 04/25/191736 Trans: 04/25/191741 [facility] [id number] Interpreted by: JADEN TOMPKINS Electronically signed by: Reviewed: Reviewed by Me Departure Impression Primary Impression: Diabetic foot ulcers Qualified Codes: E11.621 - Type 2 diabetes mellitus with foot ulcer; L97.502 - Non-pressure chronic ulcer of other part of unspecified foot with fat layer exposed Additional Impression: Decubitus ulcer of both feet, stage 2 Disposition: ADMITTED INPATIENT Condition: Stable Admissions Decision to Admit Reason: Admit from ER (General) Decision to Admit/Date: Apr 25, 2019 Time/Decision to Admit Time: 18:30 Departure-Patient Inst. Referrals: RONALD KELLEY MD (PCP/Family) Primary Care Physician Copy Copies To 1: KITA GÓMEZ MD; RONALD KELLEY MD, AMY ARNP Apr 25, 2019 17:35
[2019-04-25 17:37] LABS: BILIRUBIN,TOTAL 1.6 MG/DL (0.1-1.0); CALCIUM 8.2 MG/DL (8.5-10.1); CREATININE SERUM 1.41 MG/DL (0.60-1.30); POTASSIUM 4.4 MMOL/L (3.6-5.0); TOTAL PROTEIN 6.5 GM/DL (6.4-8.2)
--- NOTE | 2019-04-25 17:42 | Diagnostic Imaging Report ---
INDICATION: Pain and swelling, bilateral. EXAMINATION: Three views of bilateral feet. FINDINGS: No fracture, dislocation, bony destructive process, abnormal parosteal reaction, gas or fracture. In the plantar aspect of the right foot there is a questionable 8 mm length linear metallic opacity in the plantar soft tissues, laterally, seen on the oblique and lateral radiograph. This could be film artifact or a small soft tissue foreign body. No regional swelling or gas associated with this indeterminate density is apparent. IMPRESSION: No acute bony pathology. No focal swelling or gas artifact versus tiny metallic density linear foreign body, laterally. Plantar soft tissues right midfoot. Dictated by: Dictated on workstation # [id number]
--- NOTE | 2019-04-25 17:55 | NUR ---
BILATERAL TOES/FEET CLEANED WITH HIBICLENS SOAP AND STERILE WATER AND COVERED WITH KERLEX GAUZE DRSG.
[2019-04-25] MEDS ORDERED: PIPERACILLIN SODIUM/TAZOBACTAM 4.5 GM in NS (IVPB) 100 ML IV ONE (18:15)
--- NOTE | 2019-04-25 19:50 | NUR ---
MARYAM CHI admitted to room 410-1, with an admitting diagnosis of DIABETIC ULCERS BILATERAL TOES, on 04/25/19 from ED via , accompanied by ED STAFF. MARYAM CHI introduced to surroundings, call light, bed controls, phone, TV, temperature control, lights, meal times, smoking policy, visitor policy, side rail policy, bathrooms and showers. Patient Rights given to patient in the handbook. MARYAM CHI verbalizes understanding that [facility] is not responsible for the loss or damage to any personal effects or valuables that are kept in the patients posession during their hospitalization. Patient Care Plans were discussed with the PT. MARYAM CHI verbalizes understanding of Interdisciplinary Patient Education. Patient and/or family were informed about the Rapid Response Team and its purpose.
[2019-04-25 19:59] VITALS: BP 122/52
[2019-04-25] MEDS ORDERED: IBUPROFEN 800 MG (MOTRIN) TAB PO PRN (20:15)
[2019-04-25] MEDS: inSUlin ASPART (NovoLOG) 1 UNIT/0.01 ML (CHARGE PER UNIT) SC SCH (20:40)
[2019-04-25] MEDS: NS IV 1000 ML 1,000 ML IV SCH (20:46)
[2019-04-25] MEDS ORDERED: VANCOMYCIN 1 GM/NS 250 ML IVPB IV SCH ×2 (21:00)
[2019-04-25] MEDS ORDERED: PIPERACILLIN/TAZO 4.5 GM VIAL (ZOSYN) IV ONE (21:56)
[2019-04-25] MEDS ORDERED: NS (IVPB) 100 ML ONE (21:56)
[2019-04-25] MEDS ORDERED: VANCOMYCIN INJECTION 1GM (OMNI 250 ML IV ONE (21:56)
[2019-04-25] MEDS: PIPERACILLIN/TAZO 4.5 GM/NS 100 ML IV SCH ×2 (23:00)
[2019-04-26 00:17] LABS: BILIRUBIN,URINE NEGATIVE (NEGATIVE); CLARITY,URINE CLEAR; COLOR,URINE YELLOW; GLUCOSE, URINE (UA) NEGATIVE (NEGATIVE); KETONES,URINE NEGATIVE (NEGATIVE); LEUKOCYTE ESTERASE ,URINE NEGATIVE (NEGATIVE); NITRITE,URINE NEGATIVE (NEGATIVE); PH,URINE 6 (5-9); PROTEIN,URINE NEGATIVE (NEGATIVE); UROBILINOGEN,URINE 1 MG/DL (NORMAL)
[2019-04-26 00:26] LABS: BACTERIA,URINE NEGATIVE /HPF
[2019-04-26 00:34] VITALS: BP 132/68
[2019-04-26 04:29] VITALS: BP 126/57
[2019-04-26] MEDS ORDERED: PIPERACILLIN/TAZO 4.5 GM VIAL (ZOSYN) IV ONE (05:18)
[2019-04-26] MEDS ORDERED: NS (IVPB) 100 ML ONE (05:18)
[2019-04-26 05:19] LABS: BASOPHILS % (AUTO) 1 % (0-10); EOSINOPHILS # (AUTO) 0.3 10^3/uL (0.0-0.3); EOSINOPHILS % (AUTO) 5 % (0-10); HEMATOCRIT 34 % (40-54); HEMOGLOBIN 11.4 G/DL (13.3-17.7); LYMPHOCYTES % (AUTO) 35 % (12-44); MEAN CORPUSCULAR HEMOGLOBIN 34 PG (25-34); MEAN CORPUSCULAR HGB CONC 34 G/DL (32-36); MEAN CORPUSCULAR VOLUME 100 FL (80-99); MEAN PLATELET VOLUME 10.5 FL (7.4-10.4); MONOCYTES # (AUTO) 0.7 X 10^3 (0.0-1.0); MONOCYTES % (AUTO) 12 % (0-12); NEUTROPHILS # (AUTO) 2.7 X 10^3 (1.8-7.8); NEUTROPHILS % (AUTO) 48 % (42-75); PLATELET COUNT 172 10^3/uL (130-400); RED CELL DISTRIBUTION WIDTH 14.3 % (10.0-14.5); WHITE BLOOD COUNT 5.6 10^3/uL (4.3-11.0)
[2019-04-26 05:50] LABS: ALBUMIN 2.7 GM/DL (3.2-4.5); BILIRUBIN,TOTAL 1.6 MG/DL (0.1-1.0); CALCIUM 7.9 MG/DL (8.5-10.1); CREATININE SERUM 1.34 MG/DL (0.60-1.30); TOTAL PROTEIN 5.8 GM/DL (6.4-8.2)
[2019-04-26] MEDS: PIPERACILLIN/TAZO 4.5 GM/NS 100 ML IV SCH ×6 (06:14→21:50)
[2019-04-26] MEDS: NS IV 1000 ML 1,000 ML IV SCH ×2 (06:55→17:43)
[2019-04-26] MEDS: inSUlin ASPART (NovoLOG) 1 UNIT/0.01 ML (CHARGE PER UNIT) SC SCH ×3 (07:50→17:43)
[2019-04-26 08:00] VITALS: BP 103/42
[2019-04-26] MEDS ORDERED: VANCOMYCIN 1250 MG/NS 250 ML IVPB IV SCH ×2 (09:00)
--- NOTE | 2019-04-26 10:15 | History & Physical-Hospitalist ---
History of Present Illness HPI/Chief Complaint CC: B/L Diabetic ulcers of feet HPI: This is a 69[address] Keating at [facility] who recently was transferred to due an aortic aneurysm in the recent past who presented with diabetic ulcers bilaterally with toe pain unable to ambulate. His blood sugar has been out of control and having difficulty managing at home. I will have Dr. Maldonado evaluate the toes in case debridement is required. He is maintained on Vancomycin and Zos yn, and creatinine is stable at 1.3, and overall feels the same and has had no significant changes since admission and it makes it difficult to ambulate because of the toe pain. Source: patient Exam Limitations: no limitations Date Seen 04/26/19 Time Seen by a Provider: 09:30 Attending Physician Bertrand Kinney MD PCP Merari Keating MD Referring Physician Date of Admission Apr 25, 2019 at 18:35 Home Medications & Allergies Home Medications Reviewed patient Home Medication Reconciliation performed by pharmacy medication reconciliations nurse technician and/or nursing. Patients Allergies have been reviewed. Allergies Allergies Coded Allergies NKANo Known Allergies (Verified Allergy, Unknown, 01/15/07) acetaminophen (Verified Adverse Reaction, Unknown, told not to take d/t Liver function, 09/09/17) LIVER PROBLEMS Past Uizjubc-Kguoyx-Orvcxj Hx Past Med/Social Hx: Reviewed Nursing Past Med/Soc Hx, Reviewed and Corrections made Patient Social History Employed/Student: retired Alcohol Use: Past History Drug of Choice: THC Smoking Status: Former Smoker Type Used: Cigarettes 2nd Hand Smoke Exposure: No Recent Foreign Travel: No Contact w/other who traveled: No Recent Hopitalizations: Yes (MULTI E.D. VISITS/RECENT DC FROM [facility]) Recent Infectious Disease Expo: No Immunizations Up To Date Tetanus Booster (TDap): Unknown Seasonal Allergies Seasonal Allergies: No Past Medical History Surgeries: Abdominal Currently Using CPAP: No Currently Using BIPAP: No Cardiac: Aneurysm, High Cholesterol, Hypertension Neurological: Dementia, Headaches /Migraines Reproductive: No Gastrointestinal: Gastroesophageal Reflux, Liver Disease/Jaundice, Cirrhosis Musculoskeletal: Arthritis, Chronic Back Pain Endocrine: Diabetes, Insulin dep Psychosocial: Sleep Difficulties History of Blood Disorders: No Family History Deafness or hearing loss 19 MOTHER, Onset:Unknown Diabetes mellitus 19 FATHER, Onset:Unknown G8 BROTHER, Onset:Unknown G8 SISTER, Onset:Unknown Hypertension 19 FATHER, Onset:Unknown G8 SISTER, Onset:Unknown Diabetes, Hypertension, Other Conditions/Hx Review of Systems Constitutional: see HPI, weakness EENTM: no symptoms reported Respiratory: no symptoms reported Cardiovascular: no symptoms reported Gastrointestinal: no symptoms reported Genitourinary: no symptoms reported Musculoskeletal: no symptoms reported, other (foot pain) Skin: see HPI Psychiatric/Neurological: No Symptoms Reported All Other Systems Reviewed Negative Unless Noted: Yes Physical Exam Physical Exam Vital Signs Vital Signs - First Documented 04/25/19 04/25/19 16:48 18:00 Temp 100.5 Pulse 70 Resp 18 B/P (MAP) 113/54 (73) Pulse Ox 98 O2 Delivery Room Air Capillary Refill : Less Than 3 Seconds Height, Weight, BMI Height: 5'9.00" Weight: 240lbs. 3.2oz. [id number]; 34.0 BMI Method:Stated General Appearance: No Apparent Distress, WD/WN, Chronically ill Eyes: Right Eye Normal Inspection, Right Eye PERRL HEENT: PERRL/EOMI, Normal ENT Inspection, Pharynx Normal, Moist Mucous Membranes Neck: Full Range of Motion, Normal Inspection, Non Tender Respiratory: Chest Non Tender, Lungs Clear, Normal Breath Sounds, No Accessory Muscle Use, No Respiratory Distress Cardiovascular: Regular Rate, Rhythm, No Edema, No Gallop, No JVD, No Murmur, Normal Peripheral Pulses Gastrointestinal: Normal Bowel Sounds, No Organomegaly, No Pulsatile Mass, Non Tender, Soft Back: Normal Inspection, No CVA Tenderness, No Vertebral Tenderness Extremity: Normal Capillary Refill, Normal Inspection, Normal Range of Motion, Non Tender, No Calf Tenderness, No Pedal Edema, Other (dressing intact bilateral toes with ulcers and drainage pustular drainage) Neurologic/Psychiatric: Alert, Oriented x3, No Motor/Sensory Deficits, Normal Mood/Affect Skin: Normal Color, Warm/Dry Lymphatic: No Adenopathy Results Results/Procedures Labs Laboratory Tests 04/25/19 17:00 04/26/19 04:43 Patient resulted labs reviewed. Assessment/Plan Admission Diagnosis Assessment: Bilateral DM toe ulcers with infection in need of IV abx and debridement AAA HTN Cirrhosis Dementia CRI DM Plan: Monitor toes Consult Dr Maldonado Debridement? Admission Status: Inpatient Order (span 2 midnights) Reason for Inpatient Admission: Needs IV abx and creat monitoring and debridement by surgeron for 3 days Diagnosis/Problems Diagnosis/Problems (1) Diabetic foot ulcers Status: Acute Qualifiers: Diabetic foot ulcer location: toe Diabetes mellitus type: type 2 Laterality: unspecified laterality Non-pressure ulcer stage: with fat layer exposed Qualified Codes: E11.621 - Type 2 diabetes mellitus with foot ulcer; L97.502 - Non-pressure chronic ulcer of other part of unspecified foot with fat layer exposed (2) Ascending aortic aneurysm Status: Chronic (3) HTN (hypertension) Status: Chronic Qualifiers: Hypertension type: essential hypertension Qualified Codes: I10 - Essential (primary) hypertension (4) IDDM (insulin dependent diabetes mellitus) Status: Chronic Clinical Quality Measures DVT/VTE Risk/Contraindication: Risk Factor Score Per Nursin RFS Level Per Nursing on Admit: 4+=Very High ALYSE ODOM DO Apr 26, 2019 10:15
[2019-04-26 11:55] VITALS: BP 133/68
--- NOTE | 2019-04-26 13:13 | NUR ---
Initial visit: No spiritual affiliation or zoroastrianism community. The pt states he is close to his children and they live nearby. States his daughter is a nurse and brought him to the hospital concerning the blisters on his feet. Pt states he 3 years ago, and together they had raised 11 children, 4 of which are biologically theirs. He has a "lady friend," Jackelin, whom he has known since his early teens. After his , the pt looked up Jackelin and they have been close friends ever since that time.
[2019-04-26] MEDS ORDERED: ONDA4TAB11 SL (14:31)
[2019-04-26] MEDS ORDERED: RIFA550T PO (14:31)
[2019-04-26] MEDS ORDERED: INSU100I14 SQ (15:16)
[2019-04-26] MEDS ORDERED: INSU100I29 SQ (15:16)
[2019-04-26] MEDS ORDERED: TRAM50TA2 PO (15:26)
[2019-04-26] MEDS ORDERED: TRAZ-222 PO (15:31)
[2019-04-26] MEDS ORDERED: ATOR20TA66 PO (15:31)
[2019-04-26] MEDS ORDERED: METO50TA15 PO (15:31)
[2019-04-26] MEDS ORDERED: LISI-552 PO (15:31)
[2019-04-26] MEDS ORDERED: FURO20TA4 PO (15:31)
[2019-04-26] MEDS ORDERED: SERT50TA9 PO (15:31)
--- NOTE | 2019-04-26 15:32 | NUR ---
SPOKE WITH PT, WELL GOING OVER EXT MED HISTORY TO COMPLETE MED REC. 02-25-2019 TRAMADOL 50MG (1 BID PRN) #20/10DS- PT SAYS THEY ONLY USE THIS OCCASIONALLY. ALL OTHER MEDS LOOK LIKE THEY HAVE BEEN FILLED IN A TIMELY MANNER. PT STATES HE IS NOT ON ANY MAIL ORDER OR SAMPLE MEDS AND IS NOT TAKING ANY OTC MEDICATIONS.
[2019-04-26 15:59] VITALS: BP 128/63
[2019-04-26] MEDS ORDERED: ONDANSETRON 4 MG (ZOFRAN) ORAL DISSOLVE TAB SL PRN (16:45)
[2019-04-26] MEDS: RT-ALBUTEROL SULF 2.5 MG/3 ML PRE-MIX VIAL IH SCH (18:48)
[2019-04-26 20:13] VITALS: BP 126/61
--- NOTE | 2019-04-26 20:24 | Consultation - Surgery ---
History of Present Illness History of Present Illness Patient Consulted On(miguelangel/time) 04/26/19 20:17 Date Seen by Provider: Apr 26, 2019 Time Seen by Provider: 18:29 History of Present Illness consult requested by Dr. Rehman for ulcerations of bilateral toes. Patient is a 69-year-old male who states that last 4-5 days he's noted ulcerations to the toes on both feet. Patient states that his feet continued increase in swelling and causes moderate to severe pain making it difficult to ambulate. Patient states that nothing would make things better. He was having some drainage from both feet. Nothing was making worst that he knows of. Patient states that he usually does have pretty good support with his feet however he recently was wearing some moccasins with no socks but doesn't think this is causing any issues. 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 Patient with no other significant complaints this time. He states since being admitted he feels that his toes that may be slightly better. He denies any nausea vomiting fever sweats chills shortness of breath or chest pain at this time. Patient had x-ray performed demonstrating no acute bony or soft tissue process a small tiny metallic object right middle plantar surface versus artifact present on review of x-rays. Allergies and Home Medications Allergies Coded Allergies: NKANo Known Allergies (Verified Allergy, Unknown, 01/15/07) acetaminophen (Verified Adverse Reaction, Unknown, told not to take d/t Liver function, 09/09/17) LIVER PROBLEMS Home Medications Albuterol Sulfate 1 Puff Puff, 2 PUFF IH QID, (Reported) Atorvastatin Calcium 20 Mg Tablet, 20 MG PO DAILY, (Reported) Furosemide 20 Mg Tablet, 20 MG PO DAILY, (Reported) Insulin Aspart 300 Units/3 Ml Solution, 6 UNITS SQ TIDAC, (Reported) Insulin Detemir 100 Unit/1 Ml Insuln.pen, 30 UNIT SQ BID, (Reported) Lisinopril 20 Mg Tablet, 20 MG PO DAILY, (Reported) Metoprolol Tartrate 50 Mg Tablet, 50 MG PO BID, (Reported) Omeprazole 20 Mg Capsule.dr, 20 MG PO DAILY, (Reported) Ondansetron 4 Mg Tab.rapdis, 4 MG SL TID PRN for NAUSEA/VOMITING-1ST LINE, (Reported) Rifaximin 550 Mg Tablet, 550 MG PO BID, (Reported) Sertraline HCl 50 Mg Tablet, 50 MG PO HS, (Reported) Tramadol HCl 50 Mg Tablet, 50 MG PO BID PRN for PAIN-MODERATE, (Reported) Trazodone HCl 50 Mg Tablet, 50 MG PO HS, (Reported) Patient Home Medication List Home Medication List Reviewed: Yes Past Oftwyff-Egjrvn-Hlxwdv Hx Patient Social History Alcohol Use: Past History Drug of Choice: THC Smoking Status: Former Smoker Type Used: Cigarettes 2nd Hand Smoke Exposure: No Recent Foreign Travel: No Contact w/Someone Who Travel: No Recent Infectious Disease Expo: No Recent Hopitalizations: Yes (MULTI E.D. VISITS/RECENT DC FROM [facility]) Immunizations Up To Date Tetanus Booster (TDap): Unknown Seasonal Allergies Seasonal Allergies: No Surgeries History of Surgeries: Yes (LIVER BIOPSY X 2; HERNIA REPAIR) Surgeries: Abdominal Respiratory History of Respiratory Disorde: Yes Respiratory Disorders: COPD Cardiovascular History of Cardiac Disorders: Yes Cardiac Disorders: Aneurysm, High Cholesterol, Hypertension Neurological History of Neurological Disord: Yes Neurological Disorders: Dementia, Headaches /Migraines Reproductive System Hx Reproductive Disorders: No Genitourinary History of Genitourinary Disor: No Gastrointestinal History of Gastrointestinal Di: Yes Gastrointestinal Disorders: Gastroesophageal Reflux, Liver Disease/Jaundice, Cirrhosis Musculoskeletal History of Musculoskeletal Dis: Yes (CARPAL TUNNEL SYNDROME) Musculoskeletal Disorders: Arthritis, Chronic Back Pain Endocrine History of Endocrine Disorders: Yes Endocrine Disorders: Diabetes, Insulin dep HEENT History of HEENT Disorders: No Cancer History of Cancer: No Psychosocial History of Psychiatric Problem: Yes Behavioral Health Disorders: Sleep Difficulties Integumentary History of Skin or Integumenta: No Blood Transfusions History of Blood Disorders: No Family Medical History Significant Family History: Diabetes, Hypertension, Other Conditions/Hx Family Medial History: Deafness or hearing loss 19 MOTHER, Onset:Unknown Diabetes mellitus 19 FATHER, Onset:Unknown G8 BROTHER, Onset:Unknown G8 SISTER, Onset:Unknown Hypertension 19 FATHER, Onset:Unknown G8 SISTER, Onset:Unknown Review of Systems-General Constitutional: no symptoms reported EENTM: no symptoms reported Respiratory: no symptoms reported Cardiovascular: no symptoms reported Gastrointestinal: no symptoms reported Genitourinary: no symptoms reported Musculoskeletal: see HPI Skin: change in color Psychiatric/Neurological: No Symptoms Reported Physical Exam-General Problems Physical Exam Vital Signs Vital Signs - First Documented 04/25/19 04/25/19 16:48 18:00 Temp 100.5 Pulse 70 Resp 18 B/P (MAP) 113/54 (73) Pulse Ox 98 O2 Delivery Room Air Capillary Refill : Less Than 3 Seconds General Appearance: WD/WN, no apparent distress, obese HEENT: PERRL/EOMI, normal ENT inspection Neck: non-tender Respiratory: no respiratory distress, no accessory muscle use Cardiovascular: regular rate, rhythm Gastrointestinal: non tender, soft Rectal: deferred Back: no CVA tenderness Extremities: swelling (distal forefoot b/l), other (ulcerations on pressure portions of distal/dorsal aspect of toes) Neurologic/Psychiatric: gasket former II-XII nml as tested, no motor/sensory deficits, alert, normal mood/affect, oriented x 3 Skin: other (ulcerations with slight swelling/erythema surrounding b/l feet) Lymphatic: no adenopathy Data Review Labs Laboratory Tests 04/25/19 23:49: Glucometer 145H 04/26/19 00:05: Urine Color YELLOW, Urine Clarity CLEAR, Urine pH 6, Urine Specific Curlew 1.010L, Urine Protein NEGATIVE, Urine Glucose (UA) NEGATIVE, Urine Ketones NEGATIVE, Urine Nitrite NEGATIVE, Urine Bilirubin NEGATIVE, Urine Urobilinogen 1, Urine Leukocyte Esterase NEGATIVE, Urine RBC (Auto) NEGATIVE, Urine RBC NONE, Urine WBC NONE, Urine Squamous Epithelial Cells 2-5, Urine Crystals NONE, Urine Bacteria NEGATIVE, Urine Casts NONE, Urine Mucus NEGATIVE, Urine Culture Indicated NO 04/26/19 03:41: Glucometer 103 04/26/19 04:43: White Blood Count 5.6, Red Blood Count 3.38L, Hemoglobin 11.4L, Hematocrit 34L, Mean Corpuscular Volume 100H, Mean Corpuscular Hemoglobin 34, Mean Corpuscular Hemoglobin Concent 34, Red Cell Distribution Width 14.3, Platelet Count 172, Mean Platelet Volume 10.5H, Neutrophils (%) (Auto) 48, Lymphocytes (%) (Auto) 35, Monocytes (%) (Auto) 12, Eosinophils (%) (Auto) 5, Basophils (%) (Auto) 1, Neutrophils # (Auto) 2.7, Lymphocytes # (Auto) 2.0, Monocytes # (Auto) 0.7, Eosinophils # (Auto) 0.3, Basophils # (Auto) 0.0, Sodium Level 137, Potassium Level 4.0, Chloride Level 112H, Carbon Dioxide Level 18L, Anion Gap 7, Blood Urea Nitrogen 17, Creatinine 1.34H, Estimat Glomerular Filtration Rate 53, BUN/Creatinine Ratio 13, Glucose Level 97, Calcium Level 7.9L, Corrected Calcium 8.9, Total Bilirubin 1.6H, Aspartate Amino Transf (AST/SGOT) 28, Alanine Aminotransferase (ALT/SGPT) 22, Alkaline Phosphatase 100, Total Protein 5.8L, Albumin 2.7L 04/26/19 07:33: Glucometer 98 04/26/19 10:59: Glucometer 120H 04/26/19 15:24: Glucometer 113H 04/26/19 19:21: Glucometer 103 Microbiology 04/25/19 Blood Culture - Preliminary, Resulted No growth 04/25/19 Gram Stain - Final, Resulted 04/25/19 Wound Culture - Preliminary, Resulted Usual Mixed Skin Lacey Assessment/Plan Assessment/Plan Assessment/Plan bilateral ulcers of toes plantar aspectwith cellulitis, AAA, hypertension, cirrhosis, diabetes patient to continue on current antibiotic. Patient to get arterial Doppler with ABIs Continue local wound care keeping the area is clean and dry No debridement currently needed at this time will continue to follow Clinical Quality Measures DVT/VTE Risk/Contraindication: Risk Factor Score Per Nursin RFS Level Per Nursing on Admit: 4+=Very High ELIESER VAZQUEZ DO Apr 26, 2019 20:24
[2019-04-26] MEDS ORDERED: NON-FORMULARY MEDICATION 1 EA EA (Insulin Detemir (Levemir Flextouch) 30 UNIT) SQ SCH (21:00)
[2019-04-26] MEDS: traZODone 50 MG (DESYREL) TAB PO SCH (21:49)
[2019-04-26] MEDS: meTOprolol TARTRATE 50 MG (LOPRESSOR) TAB PO SCH (21:49)
[2019-04-26] MEDS: SERTRALINE 50 MG (ZOLOFT) TABLET PO SCH (21:50)
[2019-04-26] MEDS: RIFAXIMIN 550 MG TABLET (XIFAXAN) PO SCH (21:50)
[2019-04-27] VITALS: BP 122/61
[2019-04-27 04:42] VITALS: BP 122/66
[2019-04-27] MEDS: PIPERACILLIN/TAZO 4.5 GM/NS 100 ML IV SCH ×6 (05:37→21:43)
[2019-04-27] MEDS ORDERED: NON-FORMULARY MEDICATION 1 EA EA (Insulin Aspart (Novolog Flexpen) 6 UNITS) SQ SCH (06:00)
[2019-04-27 06:18] LABS: BASOPHILS % (AUTO) 1 % (0-10); EOSINOPHILS # (AUTO) 0.3 10^3/uL (0.0-0.3); EOSINOPHILS % (AUTO) 5 % (0-10); HEMATOCRIT 34 % (40-54); HEMOGLOBIN 11.2 G/DL (13.3-17.7); LYMPHOCYTES # (AUTO) 1.4 X 10^3 (1.0-4.0); LYMPHOCYTES % (AUTO) 27 % (12-44); MEAN CORPUSCULAR HEMOGLOBIN 33 PG (25-34); MEAN CORPUSCULAR HGB CONC 33 G/DL (32-36); MEAN CORPUSCULAR VOLUME 101 FL (80-99); MEAN PLATELET VOLUME 10.4 FL (7.4-10.4); MONOCYTES # (AUTO) 0.5 X 10^3 (0.0-1.0); MONOCYTES % (AUTO) 11 % (0-12); NEUTROPHILS # (AUTO) 2.9 X 10^3 (1.8-7.8); NEUTROPHILS % (AUTO) 57 % (42-75); PLATELET COUNT 172 10^3/uL (130-400); RED CELL DISTRIBUTION WIDTH 14.9 % (10.0-14.5); WHITE BLOOD COUNT 5.1 10^3/uL (4.3-11.0)
[2019-04-27 06:44] LABS: ALBUMIN 2.8 GM/DL (3.2-4.5); CALCIUM 8.2 MG/DL (8.5-10.1); CREATININE SERUM 1.33 MG/DL (0.60-1.30); POTASSIUM 4.2 MMOL/L (3.6-5.0)
[2019-04-27] MEDS: PANTOPRAZOLE 20 MG TABLET (PROTONIX) PO SCH (06:54)
[2019-04-27] MEDS: RT-ALBUTEROL SULF 2.5 MG/3 ML PRE-MIX VIAL IH SCH ×4 (07:12→18:35)
[2019-04-27 08:00] VITALS: BP 148/69
[2019-04-27] MEDS: ATORVASTATIN 20 MG (LIPITOR) TABLET PO SCH (08:23)
[2019-04-27] MEDS: RIFAXIMIN 550 MG TABLET (XIFAXAN) PO SCH ×2 (08:23→21:42)
[2019-04-27] MEDS: lisINopril 20 MG (PRINIVIL) TABLET PO SCH (08:24)
[2019-04-27] MEDS: meTOprolol TARTRATE 50 MG (LOPRESSOR) TAB PO SCH ×2 (08:24→21:42)
[2019-04-27] MEDS: inSUlin ASPART (NovoLOG) 1 UNIT/0.01 ML (CHARGE PER UNIT) SC SCH ×3 (08:24→17:21)
[2019-04-27] MEDS: FUROSEMIDE 20 MG (LASIX) TAB PO SCH (08:24)
[2019-04-27] MEDS ORDERED: OMEPRAZOLE 20 MG (PriLOSEC) CAP NON-FORMULARY PO SCH (09:00)
--- NOTE | 2019-04-27 09:46 | Progress Note - Hospitalist ---
Subjective HPI/CC On Admission Date Seen by Provider: Apr 27, 2019 Time Seen by Provider: 09:15 CC: B/L Diabetic ulcers of feet HPI: This is a 69[address] Keating at [facility] who recently was transferred to due an aortic aneurysm in the recent past who presented with diabetic ulcers bilaterally with toe pain unable to ambulate. His blood sugar has been out of control and having difficulty managing at home. I will have Dr. Maldonado evaluate the toes in case debridement is required. He is maintained on Vancomycin and Zosyn, and creatinine is stable at 1.3, and overall feels the same and has had no significant changes since admission and it makes it difficult to ambulate because of the toe pain. Subjective/Events-last exam Creatinine 1.33 Dr. Maldonado did evaluate the pt and will evaluate arterial ultrasound to be sure that there is circulation enough for antibiotics to actually reach the diabetic foot ulcers on his toes Restarted all home meds Pt denies any significant problems except for toe pain when he walks No SOB Appreciate Dr. Maldonado Review of Systems Musculoskeletal: foot pain Focused Exam Lactate Level 04/25/19 17:00: Lactic Acid Level 1.48 Objective Exam Vital Signs Vital Signs Date Time Temp Pulse Resp B/P (MAP) Pulse Ox O2 Delivery O2 Flow Rate FiO2 04/27/19 19:24 99.2 78 22 132/60 (84) 97 Room Air Capillary Refill : Less Than 3 Seconds General Appearance: No Apparent Distress, WD/WN, Chronically ill HEENT: PERRL/EOMI, Normal ENT Inspection, Pharynx Normal, Moist Mucous Membranes Neck: Full Range of Motion, Normal Inspection, Non Tender Respiratory: Chest Non Tender, Lungs Clear, Normal Breath Sounds, No Accessory Muscle Use, No Respiratory Distress Cardiovascular: Regular Rate, Rhythm, No Edema, No Gallop, No JVD, No Murmur, N ormal Peripheral Pulses Gastrointestinal: Normal Bowel Sounds, No Organomegaly, No Pulsatile Mass, Non Tender, Soft Back: Normal Inspection, No CVA Tenderness, No Vertebral Tenderness Extremity: Normal Capillary Refill, Normal Inspection, Normal Range of Motion, Non Tender, No Calf Tenderness, No Pedal Edema, Other (dressing intact bilateral toes with ulcers and drainage pustular drainage) Neurologic/Psychiatric: Alert, Oriented x3, No Motor/Sensory Deficits, Normal Mood/Affect Skin: Normal Color, Warm/Dry Lymphatic: No Adenopathy Results/Procedures Lab Laboratory Tests 04/27/19 05:35 Patient resulted labs reviewed. Assessment/Plan Assessment and Plan Assess & Plan/Chief Complaint Assessment: Bilateral DM toe ulcers with infection in need of IV abx and debridement AAA HTN Cirrhosis Dementia CRI DM Plan: Monitor toes Consult Dr Maldonado Debridement? Arterial USG reviewed Diagnosis/Problems Diagnosis/Problems (1) Diabetic foot ulcers Status: Acute Qualifiers: Diabetic foot ulcer location: toe Diabetes mellitus type: type 2 Laterality: unspecified laterality Non-pressure ulcer stage: with fat layer exposed Qualified Codes: E11.621 - Type 2 diabetes mellitus with foot ulcer; L97.502 - Non-pressure chronic ulcer of other part of unspecified foot with fat layer exposed (2) Ascending aortic aneurysm Status: Chronic (3) HTN (hypertension) Status: Chronic Qualifiers: Hypertension type: essential hypertension Qualified Codes: I10 - Essential (primary) hypertension (4) IDDM (insulin dependent diabetes mellitus) Status: Chronic Clinical Quality Measures DVT/VTE Risk/Contraindication: Risk Factor Score Per Nursin RFS Level Per Nursing on Admit: 4+=Very High ALYSE ODOM DO Apr 27, 2019 09:45
[2019-04-27 12:00] VITALS: BP 130/57
--- NOTE | 2019-04-27 15:41 | Diagnostic Imaging Report ---
PROCEDURE: US Bilateral lower extremity arterial. TECHNIQUE: Multiple Real-time grayscale images were obtained through both lower extremity arterial systems with color Doppler imaging and color Doppler spectral analysis. INDICATION: Toe ulcers. FINDINGS: Predominantly triphasic and biphasic waveforms throughout the bilateral lower extremity arterial systems are seen with the exception of monophasic waveforms involving the dorsalis pedis arteries bilaterally as well as the left anterior tibial artery distally. The velocities appear to be fairly symmetric bilaterally. No significant velocity elevation is seen. No high-grade stenosis or occlusion is identified. No fluid collection or mass is seen. IMPRESSION: Essentially unremarkable bilateral lower extremity arterial Doppler apart from monophasic waveforms in the dorsalis pedis arteries bilaterally as well as the distal left anterior tibial artery. No high-grade stenosis or occlusion is detected. Dictated by: Dictated on workstation # [id number]
[2019-04-27 15:42] VITALS: BP 138/82
--- NOTE | 2019-04-27 16:41 | Progress Note - Surgery ---
Subjective Date Seen by a Provider: Apr 27, 2019 Time Seen by a Provider: 16:37 Subjective/Events-last exam patient still with pain in the toes bilaterally. He denies any other new complaints. Denies any nausea vomiting fever sweats chills shortness of breath or chest pain. Focused Exam Lactate Level 04/25/19 17:00: Lactic Acid Level 1.48 Objective Exam Vital Signs Date Time Temp Pulse Resp B/P (MAP) Pulse Ox O2 Delivery O2 Flow Rate FiO2 04/27/19 15:42 98.4 62 20 138/82 (100) 98 Room Air 04/27/19 15:13 97 Room Air 04/27/19 12:00 98.6 65 18 130/57 (81) 98 Room Air 04/27/19 11:25 95 Room Air 04/27/19 08:00 98.6 65 18 148/69 (95) 97 Room Air 04/27/19 08:00 97 Room Air 04/27/19 07:12 93 Room Air 04/27/19 04:42 98.7 60 18 122/66 (84) 96 Room Air 04/27/19 00:00 99.4 70 20 122/61 (81) 96 Room Air 04/26/19 21:30 Room Air 04/26/19 20:13 99.1 74 20 126/61 (82) 100 Room Air 04/26/19 18:48 97 Room Air I & O 04/27/19 07:00 Intake Total 1330 ml Output Total 1575 ml Balance -245 ml Capillary Refill : Less Than 3 Seconds General Appearance: No Apparent Distress, WD/WN, Chronically ill HEENT: PERRL/EOMI, Normal ENT Inspection, Pharynx Normal, Moist Mucous Membranes Neck: Full Range of Motion, Normal Inspection, Non Tender Respiratory: Chest Non Tender, No Accessory Muscle Use, No Respiratory Distress Cardiovascular: Regular Rate, Rhythm, Normal Peripheral Pulses Gastrointestinal: non tender, soft Extremity: Normal Capillary Refill, Normal Inspection, Normal Range of Motion, Non Tender, No Calf Tenderness, No Pedal Edema, Other (patient with less swelling and erythema to the toes ulcerations present plantar surface of all toes were pressure could occur) Neurologic/Psychiatric: Alert, Oriented x3, No Motor/Sensory Deficits, Normal Mood/Affect Skin: Normal Color, Warm/Dry Lymphatic: No Adenopathy Results Lab Laboratory Tests 7/29/19 19:21: Glucometer 103 04/26/19 23:43: Glucometer 130H 04/27/19 03:24: Glucometer 130H 04/27/19 05:35: White Blood Count 5.1, Red Blood Count 3.35L, Hemoglobin 11.2L, Hematocrit 34L, Mean Corpuscular Volume 101H, Mean Corpuscular Hemoglobin 33, Mean Corpuscular Hemoglobin Concent 33, Red Cell Distribution Width 14.9H, Platelet Count 172, Mean Platelet Volume 10.4, Neutrophils (%) (Auto) 57, Lymphocytes (%) (Auto) 27, Monocytes (%) (Auto) 11, Eosinophils (%) (Auto) 5, Basophils (%) (Auto) 1, Neutrophils # (Auto) 2.9, Lymphocytes # (Auto) 1.4, Monocytes # (Auto) 0.5, Eosinophils # (Auto) 0.3, Basophils # (Auto) 0.0, Sodium Level 138, Potassium Level 4.2, Chloride Level 112H, Carbon Dioxide Level 18L, Anion Gap 8, Blood Urea Nitrogen 14, Creatinine 1.33H, Estimat Glomerular Filtration Rate 53, BUN/Creatinine Ratio 11, Glucose Level 104, Calcium Level 8.2L, Corrected Calcium 9.2, Total Bilirubin 1.0, Aspartate Amino Transf (AST/SGOT) 32, Alanine Aminotransferase (ALT/SGPT) 23, Alkaline Phosphatase 98, Total Protein 6.0L, Albumin 2.8L 04/27/19 09:11: Glucometer 123H 04/27/19 15:41: Glucometer 126H Microbiology 04/25/19 Blood Culture - Preliminary, Resulted No growth 04/25/19 Gram Stain - Final, Resulted 04/25/19 Wound Culture - Preliminary, Resulted Usual Mixed Skin Lacey Assessment/Plan Assessment/Plan Assessment/Plan bilateral ulcers of toes plantar aspect with cellulitis, AAA, hypertension, cirrhosis, diabetes patient to continue with medical management area Patient with arterial Doppler today with no high-grade stenosis Continue local wound care keeping the area is clean and dry No debridement currently needed at this time will continue to follow Clinical Quality Measures DVT/VTE Risk/Contraindication: Risk Factor Score Per Nursin RFS Level Per Nursing on Admit: 4+=Very High ELIESER VAZQUEZ DO Apr 27, 2019 16:41
[2019-04-27 19:24] VITALS: BP 132/60
[2019-04-27] MEDS ORDERED: TROUGH ORDER-PHARMACY XX NR (20:00)
[2019-04-27] MEDS: SERTRALINE 50 MG (ZOLOFT) TABLET PO SCH (21:42)
[2019-04-27] MEDS: traZODone 50 MG (DESYREL) TAB PO SCH (21:42)
[2019-04-27] MEDS: NS IV 1000 ML 1,000 ML IV SCH (21:43)
[2019-04-28] VITALS: BP 134/56
[2019-04-28 04:00] VITALS: BP 128/62
[2019-04-28 06:10] LABS: BASOPHILS % (AUTO) 1 % (0-10); EOSINOPHILS # (AUTO) 0.2 10^3/uL (0.0-0.3); EOSINOPHILS % (AUTO) 5 % (0-10); HEMATOCRIT 33 % (40-54); HEMOGLOBIN 11.1 G/DL (13.3-17.7); LYMPHOCYTES # (AUTO) 0.6 X 10^3 (1.0-4.0); LYMPHOCYTES % (AUTO) 14 % (12-44); MEAN CORPUSCULAR HEMOGLOBIN 33 PG (25-34); MEAN CORPUSCULAR HGB CONC 33 G/DL (32-36); MEAN CORPUSCULAR VOLUME 101 FL (80-99); MEAN PLATELET VOLUME 10.6 FL (7.4-10.4); MONOCYTES # (AUTO) 0.4 X 10^3 (0.0-1.0); MONOCYTES % (AUTO) 9 % (0-12); NEUTROPHILS % (AUTO) 71 % (42-75); PLATELET COUNT 170 10^3/uL (130-400); RED CELL DISTRIBUTION WIDTH 14.8 % (10.0-14.5); WHITE BLOOD COUNT 4.3 10^3/uL (4.3-11.0)
[2019-04-28 06:29] LABS: ALBUMIN 2.8 GM/DL (3.2-4.5); BILIRUBIN,TOTAL 0.9 MG/DL (0.1-1.0); CALCIUM 8.2 MG/DL (8.5-10.1); CREATININE SERUM 1.31 MG/DL (0.60-1.30); POTASSIUM 4.4 MMOL/L (3.6-5.0); TOTAL PROTEIN 6.1 GM/DL (6.4-8.2)
[2019-04-28] MEDS: PANTOPRAZOLE 20 MG TABLET (PROTONIX) PO SCH (06:43)
[2019-04-28] MEDS: PIPERACILLIN/TAZO 4.5 GM/NS 100 ML IV SCH ×2 (06:43)
[2019-04-28] MEDS: RT-ALBUTEROL SULF 2.5 MG/3 ML PRE-MIX VIAL IH SCH ×2 (07:01→11:32)
[2019-04-28] MEDS: inSUlin ASPART (NovoLOG) 1 UNIT/0.01 ML (CHARGE PER UNIT) SC SCH ×2 (07:49→12:24)
[2019-04-28 08:00] VITALS: BP 134/54
[2019-04-28] MEDS: FUROSEMIDE 20 MG (LASIX) TAB PO SCH (09:50)
[2019-04-28] MEDS: lisINopril 20 MG (PRINIVIL) TABLET PO SCH (09:50)
[2019-04-28] MEDS: ATORVASTATIN 20 MG (LIPITOR) TABLET PO SCH (09:50)
[2019-04-28] MEDS: meTOprolol TARTRATE 50 MG (LOPRESSOR) TAB PO SCH (09:50)
[2019-04-28] MEDS: RIFAXIMIN 550 MG TABLET (XIFAXAN) PO SCH (09:52)
[2019-04-28] MEDS: NS IV 1000 ML 1,000 ML IV SCH (09:55)
[2019-04-28] MEDS ORDERED: AMOX-358 PO (10:20)
--- NOTE | 2019-04-28 10:20 | Discharge Summary ---
Diagnosis/Chief Complaint Date of Admission Apr 27, 2019 at 10:15 Date of Discharge Discharge Date: Apr 28, 2019 Admission Diagnosis Assessment: Bilateral DM toe ulcers with infection in need of IV abx and debridement AAA HTN Cirrhosis Dementia CRI DM Plan: Monitor toes Consult Dr Maldonado Debridement? Discharge Diagnosis (1) Diabetic foot ulcers Status: Acute (2) Ascending aortic aneurysm Status: Chronic (3) HTN (hypertension) Status: Chronic (4) IDDM (insulin dependent diabetes mellitus) Status: Chronic Discharge Summary Discharge Physical Exam Allergies: Coded Allergies: NKANo Known Allergies (Verified Allergy, Unknown, 01/15/07) acetaminophen (Verified Adverse Reaction, Unknown, told not to take d/t Liver function, 09/09/17) LIVER PROBLEMS Vitals & I&Os Vital Signs Date Time Temp Pulse Resp B/P (MAP) Pulse Ox O2 Delivery O2 Flow Rate FiO2 04/28/19 12:20 74 18 134/54 94 Room Air 04/28/19 08:00 100.4 General Appearance: No Apparent Distress, WD/WN Respiratory: Chest Non Tender, Lungs Clear, Normal Breath Sounds, No Accessory Muscle Use, No Respiratory Distress Cardiovascular: Regular Rate, Rhythm, No Edema, No Gallop, No JVD, No Murmur, Normal Peripheral Pulses Skin: Other (healing DM ulcers on all toes bilateral) Neurologic/Psychiatric: Alert, Oriented x3, No Motor/Sensory Deficits, Normal Mood/Affect Hospital Course Was the Problem List Reviewed?: Yes Hospital Course; Pt had an uneventful hospital course he was placed on empiric IV antibiotics for b/l diabetic ulcers that were infected that required Dr. Maldonado consultation arterial ultrasound revealed good circulation flow and dressing changes were managed by Dr. Maldonado. Pt was placed back on all of his home medications and on the day of discharge the wounds look good no erythema no drainage Dr. Maldonado agreed for discharge will place on Augmentin 875 BID for additional 5 days [address] will see Dr. Maldonado on a weekly basis for a wound check. Labs (last 24 hrs) Laboratory Tests 04/28/19 02:59: Glucometer 141H 04/28/19 05:27: White Blood Count 4.3, Red Blood Count 3.32L, Hemoglobin 11.1L, Hematocrit 33L, Mean Corpuscular Volume 101H, Mean Corpuscular Hemoglobin 33, Mean Corpuscular Hemoglobin Concent 33, Red Cell Distribution Width 14.8H, Platelet Count 170, Mean Platelet Volume 10.6H, Neutrophils (%) (Auto) 71, Lymphocytes (%) (Auto) 14, Monocytes (%) (Auto) 9, Eosinophils (%) (Auto) 5, Basophils (%) (Auto) 1, Neutrophils # (Auto) 3.0, Lymphocytes # (Auto) 0.6L, Monocytes # (Auto) 0.4, Eosinophils # (Auto) 0.2, Basophils # (Auto) 0.0, Sodium Level 138, Potassium Level 4.4, Chloride Level 111H, Carbon Dioxide Level 18L, Anion Gap 9, Blood Urea Nitrogen 14, Creatinine 1.31H, Estimat Glomerular Filtration Rate 54, BUN/Creatinine Ratio 11, Glucose Level 104, Calcium Level 8.2L, Corrected Calcium 9.2, Total Bilirubin 0.9, Aspartate Amino Transf (AST/SGOT) 33, Alanine Aminotransferase (ALT/SGPT) 21, Alkaline Phosphatase 98, Total Protein 6.1L, Albumin 2.8L 04/28/19 05:39: Glucometer 101 04/28/19 11:07: Glucometer 120H Microbiology 04/25/19 Blood Culture - Preliminary, Resulted No growth 04/25/19 Gram Stain - Final, Complete 04/25/19 Wound Culture - Final, Complete Mixed Bacterial Lacey Patient resulted labs reviewed. Pending Labs Discussion & Recommendations Discharge Planning: <30 minutes discharge planning Discharge Home Medications: Active Scripts Active Augmentin 875-125 Tablet (Amoxicillin/Potassium Clav) 1 Each Tablet 1 Each PO BID Reported Trazodone HCl 50 Mg Tablet 50 Mg PO HS Sertraline HCl 50 Mg Tablet 50 Mg PO HS Metoprolol Tartrate 50 Mg Tablet 50 Mg PO BID Atorvastatin Calcium 20 Mg Tablet 20 Mg PO DAILY Lisinopril 20 Mg Tablet 20 Mg PO DAILY Furosemide 20 Mg Tablet 20 Mg PO DAILY Tramadol HCl 50 Mg Tablet 50 Mg PO BID PRN Novolog Flexpen (Insulin Aspart) 300 Units/3 Ml Solution 6 Units SQ TIDAC Levemir Flextouch (Insulin Detemir) 100 Unit/1 Ml Insuln.pen 30 Unit SQ BID Xifaxan (Rifaximin) 550 Mg Tablet 550 Mg PO BID Ondansetron Odt (Ondansetron) 4 Mg Tab.rapdis 4 Mg SL TID PRN Ventolin Hfa (Albuterol Sulfate) 1 Puff Puff 2 Puff IH QID Omeprazole 20 Mg Capsule.dr 20 Mg PO DAILY Instructions to patient/family Please see electronic discharge instructions given to patient. Clinical Quality Measures DVT/VTE Risk/Contraindication: Risk Factor Score Per Nursin RFS Level Per Nursing on Admit: 4+=Very High Problem Qualifiers (1) Diabetic foot ulcers: Diabetic foot ulcer location: toe Diabetes mellitus type: type 2 Laterality: unspecified laterality Non-pressure ulcer stage: with fat layer exposed Qualified Codes: E11.621 - Type 2 diabetes mellitus with foot ulcer; L97.502 - Non-pressure chronic ulcer of other part of unspecified foot with fat layer exposed (2) HTN (hypertension): Hypertension type: essential hypertension Qualified Codes: I10 - Essential (primary) hypertension ALYSE ODOM DO Apr 28, 2019 10:20
[2019-04-28 12:20] VITALS: BP 134/54
--- NOTE | 2019-04-28 22:27 | Progress Note - Surgery ---
Subjective Date Seen by a Provider: Apr 28, 2019 Time Seen by a Provider: 09:20 Subjective/Events-last exam patient states that both feet feel better today. Patient states he's not having any significant issues with his feet today. Patient wanting to be discharged home. Patient has no new complaints. Denies any nausea vomiting fever sweats chills shortness of breath or chest pain. Objective Exam Vital Signs Date Time Temp Pulse Resp B/P (MAP) Pulse Ox O2 Delivery O2 Flow Rate FiO2 04/28/19 12:20 74 18 134/54 94 Room Air 04/28/19 11:32 94 Room Air 04/28/19 08:00 100.4 74 18 134/54 (80) 96 Room Air 04/28/19 08:00 96 Room Air 04/28/19 07:01 94 Room Air 04/28/19 04:00 99.9 68 20 128/62 (84) Room Air 04/28/19 00:00 99.6 71 18 134/56 (82) 96 Room Air I & O 04/28/19 07:00 Intake Total 1860 ml Output Total 1720 ml Balance 140 ml Capillary Refill : Less Than 3 Seconds General Appearance: No Apparent Distress, WD/WN, Chronically ill HEENT: PERRL/EOMI, Normal ENT Inspection Neck: Full Range of Motion, Normal Inspection, Non Tender Respiratory: Chest Non Tender, No Accessory Muscle Use, No Respiratory Distress Cardiovascular: Regular Rate, Rhythm, Normal Peripheral Pulses Gastrointestinal: non tender, soft Extremity: Swelling (minimal), Other (ulcerations along the fissure portion of the plantar portion of the toes no necrotic appearing tissue) Neurologic/Psychiatric: Alert, Oriented x3, No Motor/Sensory Deficits, Normal Mood/Affect Skin: Normal Color, Warm/Dry, Other (ulcers of toes noted above) Lymphatic: No Adenopathy Results Lab Laboratory Tests 04/28/19 02:59: Glucometer 141H 04/28/19 05:27: White Blood Count 4.3, Red Blood Count 3.32L, Hemoglobin 11.1L, Hematocrit 33L, Mean Corpuscular Volume 101H, Mean Corpuscular Hemoglobin 33, Mean Corpuscular Hemoglobin Concent 33, Red Cell Distribution Width 14.8H, Platelet Count 170, Mean Platelet Volume 10.6H, Neutrophils (%) (Auto) 71, Lymphocytes (%) (Auto) 14, Monocytes (%) (Auto) 9, Eosinophils (%) (Auto) 5, Basophils (%) (Auto) 1, Neutrophils # (Auto) 3.0, Lymphocytes # (Auto) 0.6L, Monocytes # (Auto) 0.4, Eosinophils # (Auto) 0.2, Basophils # (Auto) 0.0, Sodium Level 138, Potassium Level 4.4, Chloride Level 111H, Carbon Dioxide Level 18L, Anion Gap 9, Blood Urea Nitrogen 14, Creatinine 1.31H, Estimat Glomerular Filtration Rate 54, BUN/Creatinine Ratio 11, Glucose Level 104, Calcium Level 8.2L, Corrected Calcium 9.2, Total Bilirubin 0.9, Aspartate Amino Transf (AST/SGOT) 33, Alanine Aminotransferase (ALT/SGPT) 21, Alkaline Phosphatase 98, Total Protein 6.1L, Albumin 2.8L 04/28/19 05:39: Glucometer 101 04/28/19 11:07: Glucometer 120H Microbiology 04/25/19 Blood Culture - Preliminary, Resulted No growth 04/25/19 Gram Stain - Final, Complete 04/25/19 Wound Culture - Final, Complete Mixed Bacterial Lacey Assessment/Plan Assessment/Plan Assessment/Plan bilateral ulcers of toes plantar aspect with cellulitis, AAA, hypertension, cirrhosis, diabetes feet continue to improve would convert to oral antibiotics Patient with arterial Doppler with no high-grade stenosis Continue local wound care keeping the area's clean and dry no surgical intervention at this time, would be okay to DC from surgical standpoint with close outpatient follow-up Clinical Quality Measures DVT/VTE Risk/Contraindication: Risk Factor Score Per Nursin RFS Level Per Nursing on Admit: 4+=Very High ELIESER VAZQUEZ DO Apr 28, 2019 22:27
== END 2019-04-28 12:50 | disposition home or self-care (01) | DRG 603 ==
LOC: EDUNIT# 16:39 → ER 16:42 → 4TH 18:35 → UNDOADMOB 18:35 → 4TH 19:50 → OBSVTOIN 04-26 10:15 → INTOOBSV 04-27 10:15 → UNDODISIN 04-28 12:50
PROVIDERS: ADMIT Family Medicine; ATTEND Family Medicine
DX: L03.031 Cellulitis of right toe (principal); L03.032 Cellulitis of left toe; E11.621 Type 2 diabetes mellitus with foot ulcer; L97.512 Non-pressure chronic ulcer of other part of right foot with fat layer exposed; L97.522 Non-pressure chronic ulcer of other part of left foot with fat layer exposed; L97.511 Non-pressure chronic ulcer of other part of right foot limited to breakdown of skin; I71.4 Abdominal aortic aneurysm, without rupture; K74.60 Unspecified cirrhosis of liver; F03.90 Unspecified dementia, unspecified severity, without behavioral disturbance, psychotic disturbance, mood disturbance, and anxiety; I12.9 Hypertensive chronic kidney disease with stage 1 through stage 4 chronic kidney disease, or unspecified chronic kidney disease; N18.9 Chronic kidney disease, unspecified; J44.9 Chronic obstructive pulmonary disease, unspecified; E78.00 Pure hypercholesterolemia, unspecified; G43.909 Migraine, unspecified, not intractable, without status migrainosus; K21.9 Gastro-esophageal reflux disease without esophagitis; M19.91 Primary osteoarthritis, unspecified site; M54.9 Dorsalgia, unspecified; G56.00 Carpal tunnel syndrome, unspecified upper limb; G47.9 Sleep disorder, unspecified; E66.9 Obesity, unspecified; Z87.891 Personal history of nicotine dependence; Z79.4 Long term (current) use of insulin; Z68.35 Body mass index [BMI] 35.0-35.9, adult
CPT/HCPCS: 36415; 80053; 81000; 82962; 83605; 85025; 85610; 85730; 87040; 87070; 87205; 93925; 94640; 94760; 96361; 96365; G0378

== ENCOUNTER → 2019-05-03 | Outpatient (CLI) | payer MEDICARE, MEDICAID ==
[~2019-05-03] MED LIST changes: +AMOX-358 PO; +FURO20TA4 PO; -OMEP20CA12 PO; +OMEP20CA13 PO; +ONDA4TAB11 SL; +RIFA550T PO; +SERT50TA9 PO; +TRAM50TA2 PO; +TRAZ-222 PO
== END ==
LOC: WOUNDCARE 13:00
PROVIDERS: ATTEND Surgery
DX: E11.621 Type 2 diabetes mellitus with foot ulcer (principal); E11.42 Type 2 diabetes mellitus with diabetic polyneuropathy; L97.522 Non-pressure chronic ulcer of other part of left foot with fat layer exposed; L97.511 Non-pressure chronic ulcer of other part of right foot limited to breakdown of skin
CPT/HCPCS: 11042

== ENCOUNTER → 2019-05-10 | Outpatient (CLI) | payer MEDICARE, MEDICAID | LOC: WOUNDCARE 12:31 | PROVIDERS: ATTEND Surgery | DX: L97.522 Non-pressure chronic ulcer of other part of left foot with fat layer exposed (principal); E11.621 Type 2 diabetes mellitus with foot ulcer; E11.42 Type 2 diabetes mellitus with diabetic polyneuropathy | CPT/HCPCS: 11042 ==

== ENCOUNTER → 2019-05-17 | Outpatient (CLI) | payer MEDICARE, MEDICAID | LOC: WOUNDCARE 12:43 | PROVIDERS: ATTEND Surgery | DX: E11.621 Type 2 diabetes mellitus with foot ulcer (principal); E11.42 Type 2 diabetes mellitus with diabetic polyneuropathy; L97.522 Non-pressure chronic ulcer of other part of left foot with fat layer exposed | CPT/HCPCS: 99212 ==

== ENCOUNTER → 2019-05-18 | Outpatient (CLI) | payer MEDICARE, MEDICAID | LOC: CARD 13:52 | PROVIDERS: ATTEND Nurse Practitioner Family | DX: I34.0 Nonrheumatic mitral (valve) insufficiency (principal); I71.4 Abdominal aortic aneurysm, without rupture; I11.9 Hypertensive heart disease without heart failure; E78.2 Mixed hyperlipidemia | CPT/HCPCS: 93306 ==

== ENCOUNTER 2019-07-18 07:00 | Emergency (ER) | payer MEDICARE, MEDICAID ==
[~2019-07-18] VITALS: Ht 175 cm; Wt 112.4 kg
[2019-07-18] MEDS ORDERED: NS IV 1000 ML 1,000 ML IV SCH (07:35)
--- NOTE | 2019-07-18 07:42 | ED Abdominal Pain ---
General Chief Complaint: Rect Problems Stated Complaint: RECTAL BLEEDING Nursing Triage Note: Patient states started having rectal bleeding yesterday around 1600. Has had 5 stools mixed with bright red blood since then. Is also having left lower abdominal pain rated at 7/10. Has not taken anything for pain. Is not on blood thinners. Does not have hx of GI bleed. Sepsis Screen: No Definite Risk Source of Information: Patient, Spouse Exam Limitations: No Limitations History of Present Illness Date Seen by Provider: Jul 18, 2019 Time Seen by Provider: 07:01 Initial Comments Patient presents to ER by private conveyance with his spouse and chief complaint of generalized abdominal pain and bright red bloody stools for the past day. He's had no fevers chills nausea vomiting. He has pain about 710 but does not want anything for it right now. Says he has pain meds to take home. He has a history of liver cirrhosis. No history of diverticulosis/diverticulitis. Denies being on blood thinners. Takes omeprazole. Says sometimes he feels a little dizzy but no chest pain or shortness of breath. He's had no umbilical hernia surgery. He takes lactulose and Lasix. He is diabetic on insulin. [facility] is [facility]. Allergies and Home Medications Allergies Coded Allergies: NKANo Known Allergies (Verified Allergy, Unknown, 01/15/07) acetaminophen (Verified Adverse Reaction, Unknown, told not to take d/t Liver function, 09/09/17) LIVER PROBLEMS Home Medications Albuterol Sulfate 1 Puff Puff, 2 PUFF IH QID, (Reported) Amoxicillin/Potassium Clav 1 Each Tablet, 1 EACH PO BID Prescribed by: ALYSE ODOM on 04/28/19 1020 Atorvastatin Calcium 20 Mg Tablet, 20 MG PO DAILY, (Reported) Furosemide 20 Mg Tablet, 20 MG PO DAILY, (Reported) Insulin Aspart 300 Units/3 Ml Solution, 6 UNITS SQ TIDAC, (Reported) Insulin Detemir 100 Unit/1 Ml Insuln.pen, 30 UNIT SQ BID, (Reported) Lisinopril 20 Mg Tablet, 20 MG PO DAILY, (Reported) Metoprolol Tartrate 50 Mg Tablet, 50 MG PO BID, (Reported) Omeprazole 20 Mg Capsule.dr, 20 MG PO DAILY, (Reported) Ondansetron 4 Mg Tab.rapdis, 4 MG SL TID PRN for NAUSEA/VOMITING-1ST LINE, (Reported) Rifaximin 550 Mg Tablet, 550 MG PO BID, (Reported) Sertraline HCl 50 Mg Tablet, 50 MG PO HS, (Reported) Tramadol HCl 50 Mg Tablet, 50 MG PO BID PRN for PAIN-MODERATE, (Reported) Trazodone HCl 50 Mg Tablet, 50 MG PO HS, (Reported) Patient Home Medication List Home Medication List Reviewed: Yes Review of Systems Review of Systems Constitutional: No chills, No diaphoresis, No fever EENTM: No Blurred Vision, No Double Vision Respiratory: Denies Cough, Denies Shortness of Air Cardiovascular: Denies Chest Pain, Denies Edema Gastrointestinal: See HPI, Abdominal Pain; Denies Constipated, Denies Diarrhea, Denies Nausea; Rectal Bleeding Genitourinary: Denies Discharge, Denies Drainage Musculoskeletal: No back pain, No joint pain Psychiatric/Neurological: Denies Anxiety, Denies Depressed Past [id number]-Wysycz Hx Patient Social History Alcohol Use: Denies Use Recreational Drug Use: No Drug of Choice: THC Smoking Status: Former Smoker Type Used: Cigarettes Former Smoker, Quit: Sep 29, 2004 2nd Hand Smoke Exposure: No Recent Foreign Travel: No Contact w/Someone Who Travel: No Recent Infectious Disease Expo: No Recent Hopitalizations: Yes (MULTI E.D. VISITS/RECENT DC FROM [facility]) Physical Abuse: No Sexual Abuse: No Mistreated: No Fear: No Immunizations Up To Date Tetanus Booster (TDap): Unknown Seasonal Allergies Seasonal Allergies: No Past Medical History Surgeries: Yes (LIVER BIOPSY X 2; HERNIA REPAIR) Abdominal Respiratory: Yes COPD Currently Using CPAP: No Currently Using BIPAP: No Cardiac: Yes Aneurysm, High Cholesterol, Hypertension Neurological: Yes Dementia, Headaches /Migraines Reproductive Disorders: No Genitourinary: No Gastrointestinal: Yes Gastroesophageal Reflux, Liver Disease/Jaundice, Cirrhosis Musculoskeletal: Yes (CARPAL TUNNEL SYNDROME) Arthritis, Chronic Back Pain Endocrine: Yes Diabetes, Insulin dep HEENT: No Cancer: No Psychosocial: Yes Sleep Difficulties Integumentary: No Blood Disorders: No Family Medical History Deafness or hearing loss 19 MOTHER, Onset:Unknown Diabetes mellitus 19 FATHER, Onset:Unknown G8 BROTHER, Onset:Unknown G8 SISTER, Onset:Unknown Hypertension 19 FATHER, Onset:Unknown G8 SISTER, Onset:Unknown Diabetes, Hypertension, Other Conditions/Hx Physical Exam Vital Signs Vital Signs - First Documented 07/18/19 07:08 Temp 36.7 Pulse 58 Resp 16 B/P (MAP) 122/55 (77) Pulse Ox 94 Capillary Refill : Less Than 3 Seconds Height/Weight/BMI Height: 5'9.00" Weight: 239lbs. 12.8oz. 108.064198if; 36.00 BMI Method:Stated General Appearance: WD/WN, mild distress HEENT: PERRL/EOMI, pharynx normal Neck: non-tender, full range of motion, normal inspection Respiratory: no respiratory distress, no accessory muscle use Cardiovascular: normal peripheral pulses, regular rate, rhythm Peripheral Pulses: 2+ Dorsalis Pedis (R), 2+ Left Dors-Pedis (L) Gastrointestinal: normal bowel sounds, no organomegaly, no pulsatile mass, tenderness (all 4 quadrants especially left lower) Neurologic/Psychiatric: alert, normal mood/affect, oriented x 3 Skin: normal color, warm/dry Progress/Results/Core Measures Results/Orders Lab Results Laboratory Tests Test 07/18/19 07:26 Range/Units White Blood Count 6.6 4.3-11.0 10^3/uL Red Blood Count 3.80 L 4.35-5.85 10^6/uL Hemoglobin 12.6 L 13.3-17.7 G/DL Hematocrit 38 L 40-54 % Mean Corpuscular Volume 100 H 80-99 FL Mean Corpuscular Hemoglobin 33 25-34 PG Mean Corpuscular Hemoglobin Concent 33 32-36 G/DL Red Cell Distribution Width 14.6 H 10.0-14.5 % Platelet Count 202 130-400 10^3/uL Mean Platelet Volume 10.5 H 7.4-10.4 FL Neutrophils (%) (Auto) 53 42-75 % Lymphocytes (%) (Auto) 31 12-44 % Monocytes (%) (Auto) 11 0-12 % Eosinophils (%) (Auto) 4 0-10 % Basophils (%) (Auto) 1 0-10 % Neutrophils # (Auto) 3.5 1.8-7.8 X 10^3 Lymphocytes # (Auto) 2.0 1.0-4.0 X 10^3 Monocytes # (Auto) 0.7 0.0-1.0 X 10^3 Eosinophils # (Auto) 0.3 0.0-0.3 10^3/uL Basophils # (Auto) 0.1 0.0-0.1 10^3/uL Prothrombin Time 13.7 12.2-14.7 SEC INR Comment 1.0 0.8-1.4 Activated Partial Thromboplast Time 30 24-35 SEC Sodium Level 135 135-145 MMOL/L Potassium Level 4.6 3.6-5.0 MMOL/L Chloride Level 102 98-107 MMOL/L Carbon Dioxide Level 24 21-32 MMOL/L Anion Gap 9 5-14 MMOL/L Blood Urea Nitrogen 23 H 7-18 MG/DL Creatinine 1.45 H 0.60-1.30 MG/DL Estimat Glomerular Filtration Rate 48 BUN/Creatinine Ratio 16 Glucose Level 127 H 70-105 MG/DL Calcium Level 9.2 8.5-10.1 MG/DL Corrected Calcium 9.8 8.5-10.1 MG/DL Total Bilirubin 1.0 0.1-1.0 MG/DL Aspartate Amino Transf (AST/SGOT) 40 H 5-34 U/L Alanine Aminotransferase (ALT/SGPT) 24 0-55 U/L Alkaline Phosphatase 95 40-136 U/L Total Protein 7.6 6.4-8.2 GM/DL Albumin 3.3 3.2-4.5 GM/DL My Orders Orders - SOLOMON GEORGE Ct Abdomen/Pelvis W (07/18/19 07:35) Ed Iv/Invasive Line Start (07/18/19 07:35) Ns Iv 1000 Ml (Sodium Chloride 0.9%) (07/18/19 07:35) Famotidine Injection (Pepcid Injection) (07/18/19 07:45) Cbc With Automated Diff (07/18/19 07:35) Comprehensive Metabolic Panel (07/18/19 07:35) Protime With Inr (07/18/19 07:35) Partial Thromboplastin Time (07/18/19 07:35) Iohexol Injection (Omnipaque 350 Mg/Ml 1 (07/18/19 07:45) Received Contrast (Hold Metformin- Contr (07/18/19 07:45) Sodium Chloride Flush (Catheter Flush Sy (07/18/19 07:45) Ns (Ivpb) (Sodium Chloride 0.9% Ivpb Bag (07/18/19 07:45) Medications Given in ED Current Medications Medications Dose Ordered Sig/Marly Route Start Time Stop Time Status Last Admin Dose Admin Famotidine 20 mg ONCE ONCE IVP 07/18/19 07:45 07/18/19 07:46 DC 07/18/19 07:45 20 MG Iohexol 100 ml ONCE ONCE IV 07/18/19 07:45 07/18/19 07:46 DC 07/18/19 08:12 100 ML Sodium Chloride 10 ml NEEDED PRN IV 07/18/19 07:45 07/18/19 08:12 10 ML Sodium Chloride 100 ml ONCE ONCE IV 07/18/19 07:45 07/18/19 07:46 DC 07/18/19 08:12 80 ML Vital Signs/I&O 07/18/19 07:08 Temp 36.7 Pulse 58 Resp 16 B/P (MAP) 122/55 (77) Pulse Ox 94 Blood Pressure Mean: 77 Progress Progress Note : Time: 07:40 Progress Note Diverticulitis versus other? Plan to get some labs checked for anemia, overt infection as well as kidney dysfunction. Plan to get a CT of the abdomen and pelvis with IV contrast. Liter fluids, Pepcid. He already takes omeprazole. Diagnostic Imaging Diagonstic Imaging: CT (with IV contrast) Plain Films/CT/US/NM/MRI: abdomen, pelvis Comments NAME: MARYAM [facility] REC#: [id number] PT STATUS: REG ER : 1950 PHYSICIAN: SOLOMON GEORGE MD ADMIT DATE: 07/18/19/ER FS Draft Date of Exam:07/18/19 CT ABDOMEN/PELVIS W PROCEDURE: CT abdomen and pelvis with contrast. TECHNIQUE: Multiple contiguous axial images were obtained through the abdomen and pelvis after administration of intravenous contrast. Auto Exposure Controls were utilized during the CT exam to meet ALARA standards for radiation dose reduction. INDICATION: Rectal bleeding and abdominal pain. COMPARISON is made with prior examination of 07/07/2017 FINDINGS: There is some scarring or atelectasis in the lung bases. There is a macronodular cirrhotic appearance of the liver. The gallbladder is unremarkable. There is no biliary ductal dilatation. There is splenomegaly. The pancreas and adrenal glands are unremarkable. There is a tiny left renal cyst. Kidneys are otherwise unremarkable. There is atherosclerotic calcification of the aorta which is nonaneurysmal. The bowel gas pattern is nonspecific. There is no free air. There is no ascites. No focal inflammatory changes. Bladder is normal. There is no pelvic mass or adenopathy. There are degenerative changes in the spine. IMPRESSION: 1. Bibasilar scarring or atelectasis. 2. Macronodular cirrhotic appearance of liver as well as mild splenomegaly. 3, Tiny left renal cyst. 4. No other acute abnormality in the abdomen or pelvis. Dictated on workstation # [id number] Dict: 07/18/19832 Trans: 07/18/1947 [facility] [id number] Interpreted by: NEETU CABEZAS MD Electronically signed by: Reviewed: Reviewed by Me Consults : Consulting Physician: ABBIE JAMES DO Consults Notes Discussed case lab age imaging with Dr. James, General Surgery and at this time since the patient stable he would prefer the patient to get prepped and plan to do a scope Friday. He would like us to have the patient call his clinic Friday morning, tomorrow. Departure Impression Primary Impression: Rectal hemorrhage Disposition: HOME, SELF-CARE Condition: Stable Departure-Patient Inst. Decision time for Depature: 08:50 Referrals: ABBIE JAMES JULIE A MD (PCP/Family) Primary Care Physician Patient Instructions: Bloody Stools, Adult (DC) Add. Discharge Instructions: Call Dr. James's clinic tomorrow morning to get set up to have a scope done Friday. They will instruct you how to prepare for the scope on Friday. Drink plenty of fluids. If you start to have chest pain, shortness of breath or feel like you are going to pass out then please return to the ER. All discharge instructions reviewed with patient and/or family. Voiced understanding. SOLOMON GEORGE Jul 18, 2019 07:41
[2019-07-18 07:44] LABS: BASOPHILS # (AUTO) 0.1 10^3/uL (0.0-0.1); BASOPHILS % (AUTO) 1 % (0-10); EOSINOPHILS # (AUTO) 0.3 10^3/uL (0.0-0.3); EOSINOPHILS % (AUTO) 4 % (0-10); HEMATOCRIT 38 % (40-54); HEMOGLOBIN 12.6 G/DL (13.3-17.7); LYMPHOCYTES % (AUTO) 31 % (12-44); MEAN CORPUSCULAR HEMOGLOBIN 33 PG (25-34); MEAN CORPUSCULAR HGB CONC 33 G/DL (32-36); MEAN CORPUSCULAR VOLUME 100 FL (80-99); MEAN PLATELET VOLUME 10.5 FL (7.4-10.4); MONOCYTES # (AUTO) 0.7 X 10^3 (0.0-1.0); MONOCYTES % (AUTO) 11 % (0-12); NEUTROPHILS # (AUTO) 3.5 X 10^3 (1.8-7.8); NEUTROPHILS % (AUTO) 53 % (42-75); PLATELET COUNT 202 10^3/uL (130-400); RED CELL DISTRIBUTION WIDTH 14.6 % (10.0-14.5); WHITE BLOOD COUNT 6.6 10^3/uL (4.3-11.0)
[2019-07-18] MEDS ORDERED: FAMOTIDINE 20MG/2ML IV (PEPCID) IVP ONE (07:45)
[2019-07-18] MEDS ORDERED: HOLD METFORMIN - RECEIVED CONTRAST 20 ML VIAL IV SCH (07:45)
[2019-07-18] MEDS ORDERED: IOHEXOL 350 MG/ML 100 ML (OMNIPAQUE 350) VIAL IV ONE (07:45)
[2019-07-18] MEDS ORDERED: CATHETER FLUSH 10 ML SYR IV PRN (07:45)
[2019-07-18] MEDS ORDERED: NS 100 ML (IVPB) BAG IV ONE (07:45)
[2019-07-18 07:49] LABS: PROTHROMBIN TIME PATIENT 13.7 SEC (12.2-14.7)
[2019-07-18 07:56] LABS: POTASSIUM 4.6 MMOL/L (3.6-5.0)
[2019-07-18 07:57] LABS: ALBUMIN 3.3 GM/DL (3.2-4.5); CALCIUM 9.2 MG/DL (8.5-10.1); CREATININE SERUM 1.45 MG/DL (0.60-1.30); TOTAL PROTEIN 7.6 GM/DL (6.4-8.2)
[2019-07-18 08:00] VITALS: BP 123/48
--- NOTE | 2019-07-18 08:46 | Diagnostic Imaging Report ---
PROCEDURE: CT abdomen and pelvis with contrast. TECHNIQUE: Multiple contiguous axial images were obtained through the abdomen and pelvis after administration of intravenous contrast. Auto Exposure Controls were utilized during the CT exam to meet ALARA standards for radiation dose reduction. INDICATION: Rectal bleeding and abdominal pain. COMPARISON is made with prior examination of 07/07/2017 FINDINGS: There is some scarring or atelectasis in the lung bases. There is a macronodular cirrhotic appearance of the liver. The gallbladder is unremarkable. There is no biliary ductal dilatation. There is splenomegaly. The pancreas and adrenal glands are unremarkable. There is a tiny left renal cyst. Kidneys are otherwise unremarkable. There is atherosclerotic calcification of the aorta which is nonaneurysmal. The bowel gas pattern is nonspecific. There is no free air. There is no ascites. No focal inflammatory changes. Bladder is normal. There is no pelvic mass or adenopathy. There are degenerative changes in the spine. IMPRESSION: 1. Bibasilar scarring or atelectasis. 2. Macronodular cirrhotic appearance of liver as well as mild splenomegaly. 3, Tiny left renal cyst. 4. No other acute abnormality in the abdomen or pelvis. Dictated by: Dictated on workstation # [id number]
[2019-07-18 09:15] VITALS: BP 123/57
== END 2019-07-18 09:15 | disposition home or self-care (01) ==
LOC: EDUNIT# 07:00 → ER FS 07:01
DX: K62.5 Hemorrhage of anus and rectum (principal); E11.9 Type 2 diabetes mellitus without complications; J44.9 Chronic obstructive pulmonary disease, unspecified; I10 Essential (primary) hypertension; E78.00 Pure hypercholesterolemia, unspecified; F03.90 Unspecified dementia, unspecified severity, without behavioral disturbance, psychotic disturbance, mood disturbance, and anxiety; G43.909 Migraine, unspecified, not intractable, without status migrainosus; K21.9 Gastro-esophageal reflux disease without esophagitis; Z79.4 Long term (current) use of insulin; Z88.6 Allergy status to analgesic agent; Z87.891 Personal history of nicotine dependence; Z82.49 Family history of ischemic heart disease and other diseases of the circulatory system
CPT/HCPCS: 36415; 74177; 80053; 85025; 85610; 85730

== ENCOUNTER → 2019-08-05 | Outpatient (CLI) | payer MEDICARE, MEDICAID ==
[~2019-08-05] VITALS: Ht 175 cm; Wt 104.5 kg
== END | disposition home or self-care (01) ==
LOC: PREOP 08-03 06:01
PROVIDERS: ATTEND Surgery
DX: Z01.818 Encounter for other preprocedural examination (principal)

== ENCOUNTER 2019-09-30 10:00 | Outpatient (CLI) | payer MEDICARE, MEDICAID ==
[~2019-09-30] VITALS: Ht 175 cm; Wt 114.0 kg
[2019-09-30] MEDS ORDERED: LACT10SO PO (10:10)
== END 2019-09-30 10:39 | disposition home or self-care (01) ==
LOC: PREOP 10:00
PROVIDERS: ATTEND Internal Medicine
DX: Z01.818 Encounter for other preprocedural examination (principal)

== ENCOUNTER 2019-10-01 06:37 | Day surgery (SDC) | payer MEDICARE, MEDICAID ==
--- NOTE | 2019-09-28 11:10 | HISTORY AND PHYSICAL ---
DATE OF SERVICE: COLONOSCOPY HISTORY AND PHYSICAL DATE OF ADMISSION: 10/01/2019. HISTORY OF PRESENT ILLNESS: The patient is a 69-year-old white male referred by Dr. Damian for diagnostic colonoscopy for evaluation of rectal bleeding. The patient reports several year history of intermittent bright red blood per rectum. Last occurrence was 3 days ago in small volume but at times he reports bleeding is heavy. He is a poor historian with reported history of dementia as well as hepatic encephalopathy with underlying cirrhosis. He comes with his significant other who is able to give a little more history; it was not clear as to whether or not the cirrhosis was due to underlying alcohol use disorder or of other etiology. He denied melena and there was no known past history of hemorrhoids, esophageal varices or history of variceal bleed. PAST MEDICAL HISTORY: Significant for longstanding type 2 diabetes mellitus, now insulin requiring with peripheral neuropathy and history of diabetic foot ulcers with a toe ulcer requiring admission in March of this year. There is a history of COPD with past tobaccoism with no reported current smoking or drinking history. There is a past history of obstructive sleep apnea, hypertension and mood disorder. On review of x-ray studies, he does not have an abdominal aortic aneurysm, but does have a proximal ascending aneurysm that does not involve the aortic root and measures up to 5 cm in biggest diameter. PAST SURGICAL HISTORY: He has had some abdominal surgery, but does not know what was done. MEDICATIONS ON ADMISSION: Zoloft 50 mg daily, albuterol via maximist q.4 hours p.r.n., Symbicort 2 puffs b.i.d., omeprazole 20 mg daily, NovoLog 6 units before meals and Levemir 30 units b.i.d., Lasix 20 mg daily, and metoprolol tartrate 50 mg b.i.d. SOCIAL HISTORY: He lives with significant other with unknown amount of past alcohol consumption and past smoking history, but reportedly had quit several years ago. He is retired. FAMILY HISTORY: There is no known family history for GI tract malignancy including colon cancer, but answers were rather vague in this regard. REVIEW OF SYSTEMS: CONSTITUTIONAL: The patient denies night sweats, chills or fever or change in weight. CARDIOVASCULAR: He denies chest pain, orthopnea, PND or pedal edema. PULMONARY: Reports stable dyspnea on exertion. No dyspnea at rest with stable cough and no hemoptysis or purulent sputum production. GASTROINTESTINAL: As stated in the HPI. PHYSICAL EXAMINATION: GENERAL: Reveals an anxious appearing obese white male in no acute distress. VITAL SIGNS: Weight is 251.8 pounds, blood pressure 130/62 with a heart rate of 66 and regular. HEENT: Unremarkable. Conjunctivae are not pallorous nor is there evidence for scleral icterus. CHEST: Reveals some diminished breath sounds posteriorly without wheezes, rales or rhonchi. CARDIOVASCULAR: Revealed a regular rate and rhythm without murmur, S3 or S4. ABDOMEN: Obese, nontender. No evidence for venous dilatation was noted. Bowel sounds are positive. No bruits were noted. I could not appreciate organomegaly, although sensitivity is diminished due to obesity. EXTREMITIES: Reveal no cyanosis or clubbing. There is 1+ edema to the mid tibia. ASSESSMENT AND PLAN: The patient is set up for diagnostic colonoscopy on 10/01/2019 secondary to rectal bleeding with reported anemia. Due to history of cirrhosis and multiple medical comorbidities, anesthesia will be consulted for Diprivan, safest option for this patient. Prep instructions that the patient already had, MiraLax and instructions were given. Discussed the importance of complying. The patient's and significant other's questions were answered. With review of electronic medical record, 45 minutes care time was spent. Job ID: [id number] DocumentID: [id number] Dictated Date: 09/28/2019 10:29:07 Laser Machine Operator Date: 09/28/2019 11:10:09 Dictated By: ROSA DEE MD [facility]
[2019-10-01] VITALS (8 sets, daily range): BP systolic 116–127; BP diastolic 55–71
[~2019-10-01] VITALS: Ht 175 cm; Wt 114.0 kg
[~2019-10-01 06:37] MED LIST changes: +LACT10SO PO; -TRAM50TA2 PO; +TRM50T PO
[2019-10-01] MEDS ORDERED: LACTATED RINGERS 1,000 ML IV ONE (07:10)
[2019-10-01] MEDS ORDERED: LACTATED RINGERS 1,000 ML IV PRN (07:15)
[2019-10-01] MEDS ORDERED: PROPOFOL INJECTION 50 ML IV ONE (07:25)
[2019-10-01] MEDS ORDERED: LIDOCAINE JELLY 2% 6 ML SYRINGE ONE (07:58)
--- NOTE | 2019-10-01 08:41 | Pre-Op Note & Conscious Sedat ---
Pre-Operative Progress Note H&P Reviewed The H&P was reviewed, patient examined and no changes noted. Date H&P Reviewed: Oct 01, 2019 Time H&P Reviewed: 07:40 Conscious Sedation Pre-Proced ASA Score 3 For ASA 3 and 4: Consider anesthesia and medical clearance. Also, for patients with a history of failed moderate sedation consider anesthesia. Airway Lungs Heart ASA score ASA 1: a normal healthy patient ASA 2: a patient with a mild systemic disease (mid diabetes, controlled hypertension, obesity ASA 3: a patient with a severe systemic disease that limits activity (angina, COPD, prior Myocardial infarction) ASA 4: a patient with an incapacitating disease that is a constant threat to life (CHF, renal failure) ASA 5: a moribund patient not expected to survive 24 hrs. (ruptured aneurysm) ASA 6: a declared brain- patient whose organs are being harvested. For emergent operations, add the letter E after the classification Mallampati Classification Grade 1 Sedation Plan Analgesia, Amnesia, Plan communicated to team members, Discussed options with patient/fam, Discussed risks with patient/fam The patient is an appropriate candidate to undergo the planned procedure, sedation, and anesthesia. The patient immediately re-assessed prior to indication. ROSA DEE MD Oct 01, 2019 08:41
[2019-10-01] MEDS ORDERED: LIDOCAINE JELLY 2% 6 ML SYRINGE TOP ONE (09:00)
--- NOTE | 2019-10-01 16:07 | OPERATIVE REPORT ---
DATE OF SERVICE: INDICATION FOR THE PROCEDURE: Bright red blood per rectum with reported anemia. DESCRIPTION OF PROCEDURE: The patient was placed in the left lateral decubitus position. Prior to doing colonoscopy, digital rectal evaluation was performed. The prostate was normal in size, anodular, nontender to digital inspection. No abnormalities were noted to digital inspection of the anal canal or distal rectal vault. There is evidence for an external hemorrhoid, nonthrombosed at the 5 to 6 o'clock position. The colonoscope was then inserted into the rectum and under direct visualization advanced to cecum. The cecum was identified by identification of the ileocecal valve and cecal strap. Photographic documentation was obtained. Careful inspection was made as the colonoscope withdrawn. The quality of prep was good. FINDINGS: One nonthrombosed external hemorrhoid was noted at the 5 to 6 o'clock position. Several small grade I to II internal hemorrhoid complexes were noted. There was no evidence for blood in the rectal vault. The rectum, sigmoid colon, descending colon, splenic flexure, transverse colon, hepatic flexure, ascending colon and cecum were unremarkable with no evidence for diverticular disease or neoplasia. ASSESSMENT: One external hemorrhoid was noted at the 5 to 6 o'clock position and several grade I to II internal hemorrhoid complexes were noted, the most likely source of this patient's bleeding. Discussed the importance of complying with lactulose to maintain loose stools, not only for reducing the risk for hepatic encephalopathy in this patient, but also reducing constipation and hence hemorrhoidal bleeding risk. I did discuss that considering his liver failure and increased likelihood of bleeding and for this reason, he will have a future episodes of rectal bleeding as long as it is not associated with significant iron deficiency anemia or need for transfusion. Considering his dementia and end-stage liver disease, we would not recommend surveillance colonoscopy in the future. Job ID: [id number] DocumentID: [id number] Dictated Date: 10/01/2019 11:14:16 Blending Machine Feeder Date: 10/01/2019 16:06:27 Dictated By: MD DESIREE BEACH
== END 2019-10-01 09:30 | disposition home or self-care (01) ==
LOC: ENDO 06:37
PROVIDERS: ATTEND Internal Medicine
DX: K62.5 Hemorrhage of anus and rectum (principal); D64.9 Anemia, unspecified; K64.4 Residual hemorrhoidal skin tags; K64.1 Second degree hemorrhoids; E11.40 Type 2 diabetes mellitus with diabetic neuropathy, unspecified; E11.621 Type 2 diabetes mellitus with foot ulcer; L97.509 Non-pressure chronic ulcer of other part of unspecified foot with unspecified severity; J44.9 Chronic obstructive pulmonary disease, unspecified; G47.33 Obstructive sleep apnea (adult) (pediatric); I10 Essential (primary) hypertension; F32.9 Major depressive disorder, single episode, unspecified; Z79.4 Long term (current) use of insulin
CPT/HCPCS: 82962

== ENCOUNTER 2019-10-15 01:11 | Observation (INO) | payer MEDICARE, MEDICAID ==
[~2019-10-15] VITALS: Ht 175 cm; Wt 113.0 kg
[~2019-10-15 01:11] MED LIST changes: -MORP-33; +MORP-68; +OMEP-280 PO; -OMEP20CA13 PO; -TRAZ-222 PO; +TRZ50T PO
--- NOTE | 2019-10-15 01:58 | ED General ---
General Chief Complaint: Glucose Problems Stated Complaint: OVERDOSE NOVOLOGE Source of Information: Patient, Other (fiance) Exam Limitations: No Limitations History of Present Illness Date Seen by Provider: Oct 15, 2019 Time Seen by Provider: 01:41 Initial Comments Patient presents to ER by private conveyance from home with chief complaint that around 10:30, three-hour 15 minutes prior to arrival he was drawing up his Levemir which he usually takes 30 units and NovoLog which she usually takes 6 units and get them reversed. He took 30 units of NovoLog. He did not have any symptoms immediately but called poison control and check 309. Every 20 minutes he re-checked his blood sugar and it dropped another 20 mg/dL. On arrival it was 221 per nursing staff. He doesn't remember what it was this morning fasting. He has been on insulin for 20 years. He has a history of liver cirrhosis. He has a mild headache but does not take pain medicines except for his tramadol. He does not feel he needs anything right now. No nausea or new abdominal pain. Allergies and Home Medications Allergies Coded Allergies: No Known Drug Allergies (Verified , 10/01/19) Home Medications Albuterol Sulfate 1 Puff Puff, 2 PUFF IH QID, (Reported) Furosemide 20 Mg Tablet, 20 MG PO DAILY, (Reported) Insulin Aspart 300 Units/3 Ml Solution, 6 UNITS SQ TIDAC, (Reported) Insulin Detemir 100 Unit/1 Ml Insuln.pen, 30 UNIT SQ BID, (Reported) Lactulose 10 Gm/15 Ml Solution, 10 GM PO DAILY, (Reported) Metoprolol Tartrate 50 Mg Tablet, 50 MG PO BID, (Reported) Omeprazole 20 Mg Capsule.dr, 20 MG PO DAILY, (Reported) Ondansetron 4 Mg Tab.rapdis, 4 MG SL TID PRN for NAUSEA/VOMITING-1ST LINE, (Reported) Rifaximin 550 Mg Tablet, 550 MG PO BID, (Reported) Sertraline HCl 50 Mg Tablet, 50 MG PO HS, (Reported) Tramadol HCl 50 Mg Tablet, 50 MG PO BID PRN for PAIN-MODERATE, (Reported) Trazodone HCl 50 Mg Tablet, 50 MG PO HS, (Reported) Patient Home Medication List Home Medication List Reviewed: Yes Review of Systems Review of Systems Constitutional: No chills, No diaphoresis EENTM: No blurred vision, No double vision Respiratory: No cough, No short of breath Cardiovascular: No chest pain, No edema Gastrointestinal: No abdominal pain, No constipation, No diarrhea, No nausea Genitourinary: No discharge, No dysuria Musculoskeletal: No back pain, No joint pain Skin: No no symptoms reported, No pruritus, No rash All Other Systems Reviewed Negative Unless Noted: Yes Past Ciyfwft-Shdpra-Bljalx Hx Patient Social History Alcohol Use: Denies Use Recreational Drug Use: Yes Drug of Choice: THC Smoking Status: Former Smoker Type Used: Cigarettes Former Smoker, Quit: Sep 29, 2004 2nd Hand Smoke Exposure: Yes Recent Foreign Travel: No Contact w/Someone Who Travel: No Recent Hopitalizations: Yes (MULTI E.D. VISITS/RECENT DC FROM [facility]) Immunizations Up To Date Tetanus Booster (TDap): Unknown Date of Pneumonia Vaccine: Sep 13, 2019 Date of Influenza Vaccine: Sep 13, 2019 Seasonal Allergies Seasonal Allergies: No Past Medical History Surgeries: Yes (LIVER BIOPSY X 2; HERNIA REPAIR) Abdominal Respiratory: Yes COPD Currently Using CPAP: No Currently Using BIPAP: No Cardiac: Yes Aneurysm, High Cholesterol, Hypertension Neurological: Yes Dementia, Headaches /Migraines Reproductive Disorders: No Sexually Transmitted Disease: No HIV/AIDS: No Genitourinary: No Gastrointestinal: Yes Gastroesophageal Reflux, Liver Disease/Jaundice, Cirrhosis Musculoskeletal: Yes (CARPAL TUNNEL SYNDROME) Arthritis, Chronic Back Pain Endocrine: Yes Diabetes, Insulin dep HEENT: No (GLASSES) Loss of Vision: Denies Hearing Impairment: Denies Cancer: No Psychosocial: Yes Sleep Difficulties Integumentary: No Blood Disorders: No Adverse Reaction/Blood Tranf: No (N/A) Family Medical History Deafness or hearing loss 19 MOTHER, Onset:Unknown Diabetes mellitus 19 FATHER, Onset:Unknown G8 BROTHER, Onset:Unknown G8 SISTER, Onset:Unknown Hypertension 19 FATHER, Onset:Unknown G8 SISTER, Onset:Unknown Diabetes, Hypertension, Other Conditions/Hx Physical Exam Vital Signs Vital Signs - First Documented 10/15/19 01:50 Temp 36.0 Pulse 74 Resp 18 B/P (MAP) 127/82 (97) Pulse Ox 97 O2 Delivery Room Air Capillary Refill : Height, Weight, BMI Height: 5'9.00" Weight: 239lbs. 12.8oz. 108.714929tt; 37.22 BMI Method:Stated General Appearance: No Apparent Distress, Obese Eyes: Bilateral Eye Normal Inspection, Bilateral Eye PERRL, Bilateral Eye EOMI HEENT: PERRL/EOMI, TMs Normal, Normal ENT Inspection, Pharynx Normal, Moist Mucous Membranes Respiratory: Lungs Clear, Normal Breath Sounds, No Accessory Muscle Use, No Respiratory Distress Cardiovascular: Regular Rate, Rhythm, Normal Peripheral Pulses Gastrointestinal: Normal Bowel Sounds, Non Tender, Soft Extremity: Normal Capillary Refill, Normal Inspection, No Pedal Edema Neurologic/Psychiatric: Alert, Oriented x3, No Motor/Sensory Deficits Skin: Normal Color, Warm/Dry Progress/Results/Core Measures Suspected Sepsis SIRS Temperature: Pulse: Respiratory Rate: Laboratory Tests 10/15/19 01:55: White Blood Count 6.2 Blood Pressure / Mean: Laboratory Tests 10/15/19 01:55: Creatinine 1.69H, Platelet Count 174, Total Bilirubin 0.8 Results/Orders Lab Results Laboratory Tests Test 10/15/19 01:29 10/15/19 01:55 10/15/19 02:02 10/15/19 02:47 Range/Units Glucometer 221 H 112 H 70-110 MG/DL White Blood Count 6.2 4.3-11.0 10^3/uL Red Blood Count 3.36 L 4.35-5.85 10^6/uL Hemoglobin 11.2 L 13.3-17.7 G/DL Hematocrit 33 L 40-54 % Mean Corpuscular Volume 99 80-99 FL Mean Corpuscular Hemoglobin 33 25-34 PG Mean Corpuscular Hemoglobin Concent 34 32-36 G/DL Red Cell Distribution Width 14.5 10.0-14.5 % Platelet Count 174 130-400 10^3/uL Mean Platelet Volume 9.9 7.4-10.4 FL Neutrophils (%) (Auto) 48 42-75 % Lymphocytes (%) (Auto) 34 12-44 % Monocytes (%) (Auto) 13 H 0-12 % Eosinophils (%) (Auto) 5 0-10 % Basophils (%) (Auto) 1 0-10 % Neutrophils # (Auto) 2.9 1.8-7.8 X 10^3 Lymphocytes # (Auto) 2.1 1.0-4.0 X 10^3 Monocytes # (Auto) 0.8 0.0-1.0 X 10^3 Eosinophils # (Auto) 0.3 0.0-0.3 10^3/uL Basophils # (Auto) 0.0 0.0-0.1 10^3/uL Sodium Level 137 135-145 MMOL/L Potassium Level 4.2 3.6-5.0 MMOL/L Chloride Level 110 H 98-107 MMOL/L Carbon Dioxide Level 18 L 21-32 MMOL/L Anion Gap 9 5-14 MMOL/L Blood Urea Nitrogen 20 H 7-18 MG/DL Creatinine 1.69 H 0.60-1.30 MG/DL Estimat Glomerular Filtration Rate 40 BUN/Creatinine Ratio 12 Glucose Level 193 H 70-105 MG/DL Calcium Level 8.8 8.5-10.1 MG/DL Corrected Calcium 9.4 8.5-10.1 MG/DL Total Bilirubin 0.8 0.1-1.0 MG/DL Aspartate Amino Transf (AST/SGOT) 39 H 5-34 U/L Alanine Aminotransferase (ALT/SGPT) 23 0-55 U/L Alkaline Phosphatase 88 40-136 U/L Total Protein 7.3 6.4-8.2 GM/DL Albumin 3.2 3.2-4.5 GM/DL Urine Color YELLOW Urine Clarity CLEAR Urine pH 6.0 5-9 Urine Specific [place] 1.025 H 1.016-1.022 Urine Protein NEGATIVE NEGATIVE Urine Glucose (UA) NEGATIVE NEGATIVE Urine Ketones NEGATIVE NEGATIVE Urine Nitrite NEGATIVE NEGATIVE Urine Bilirubin NEGATIVE NEGATIVE Urine Urobilinogen 0.2 < = 1.0 MG/DL Urine Leukocyte Esterase NEGATIVE NEGATIVE Urine RBC (Auto) NEGATIVE NEGATIVE Urine RBC NONE /HPF Urine WBC NONE /HPF Urine Squamous Epithelial Cells NONE /HPF Urine Crystals NONE /LPF Urine Bacteria TRACE /HPF Urine Casts NONE /LPF Urine Mucus NEGATIVE /LPF Urine Culture Indicated NO My Orders Orders - SOLOMON GEORGE Accucheck Stat ONCE (10/15/19 01:38) General/Regular (10/15/19 Breakfast) Cbc With Automated Diff (10/15/19 01:53) Comprehensive Metabolic Panel (10/15/19 01:53) Ua Culture If Indicated (10/15/19 01:53) Accucheck Stat ONCE (10/15/19 02:45) D5 Ns 1000 Ml Iv Solution (Dextrose 5%/0 (10/15/19 03:15) Vital Signs/I&O 10/15/19 01:50 Temp 36.0 Pulse 74 Resp 18 B/P (MAP) 127/82 (97) Pulse Ox 97 O2 Delivery Room Air Capillary Refill : Point of Care Testing Finger Stick Blood Glucose: 221 Blood Glucose Action Taken: rn notified Progress Note #1: Time: 02:03 Progress Note He had half an apple to eat prior to coming. He was concerned his sugar was going to continue to fall. We have ordered him a tray to eat while he waits. Poison control recommends 5 hours of observation. We'll check some basic labs and urinalysis and then recheck an Accu-Chek. At that point will be close to 0 3:30 which is 5 hours from injection time. Progress Note #2: Time: 02:56 Progress Note 100% of the sandwich and chips provided. His blood sugar was rechecked and it is 121. We anticipate he is going to need a little longer to be watched so we'll place him for observation. Departure Communication (Admissions) Time/Spoke to Admitting Phy: 03:00 Discussed case lab and trending blood sugar with Dr. Neal and she agrees to observe the patient. Impression Primary Impression: Insulin overdose Qualified Codes: T38.3X1A - Poisoning by insulin and oral hypoglycemic [antidiabetic] drugs, accidental (unintentional), initial encounter Disposition: ADMITTED INPATIENT (obs) Condition: Stable Admissions Decision to Admit Reason: Admit from ER (General) Decision to Admit/Date: Oct 15, 2019 Time/Decision to Admit Time: 02:55 Departure-Patient Inst. Referrals: RONALD KELLEY MD (PCP/Family) Primary Care Physician SOLOMON GEORGE Oct 15, 2019 01:58
[2019-10-15 02:06] LABS: BASOPHILS % (AUTO) 1 % (0-10); EOSINOPHILS # (AUTO) 0.3 10^3/uL (0.0-0.3); EOSINOPHILS % (AUTO) 5 % (0-10); HEMATOCRIT 33 % (40-54); HEMOGLOBIN 11.2 G/DL (13.3-17.7); LYMPHOCYTES # (AUTO) 2.1 X 10^3 (1.0-4.0); LYMPHOCYTES % (AUTO) 34 % (12-44); MEAN CORPUSCULAR HEMOGLOBIN 33 PG (25-34); MEAN CORPUSCULAR HGB CONC 34 G/DL (32-36); MEAN CORPUSCULAR VOLUME 99 FL (80-99); MEAN PLATELET VOLUME 9.9 FL (7.4-10.4); MONOCYTES # (AUTO) 0.8 X 10^3 (0.0-1.0); MONOCYTES % (AUTO) 13 % (0-12); NEUTROPHILS # (AUTO) 2.9 X 10^3 (1.8-7.8); NEUTROPHILS % (AUTO) 48 % (42-75); PLATELET COUNT 174 10^3/uL (130-400); RED CELL DISTRIBUTION WIDTH 14.5 % (10.0-14.5); WHITE BLOOD COUNT 6.2 10^3/uL (4.3-11.0)
[2019-10-15 02:16] LABS: BILIRUBIN,URINE NEGATIVE (NEGATIVE); CLARITY,URINE CLEAR; COLOR,URINE YELLOW; GLUCOSE, URINE (UA) NEGATIVE (NEGATIVE); KETONES,URINE NEGATIVE (NEGATIVE); LEUKOCYTE ESTERASE ,URINE NEGATIVE (NEGATIVE); NITRITE,URINE NEGATIVE (NEGATIVE); PROTEIN,URINE NEGATIVE (NEGATIVE)
[2019-10-15 02:28] LABS: BACTERIA,URINE TRACE /HPF
[2019-10-15 02:31] LABS: ALBUMIN 3.2 GM/DL (3.2-4.5); BILIRUBIN,TOTAL 0.8 MG/DL (0.1-1.0); CALCIUM 8.8 MG/DL (8.5-10.1); CREATININE SERUM 1.69 MG/DL (0.60-1.30); POTASSIUM 4.2 MMOL/L (3.6-5.0); TOTAL PROTEIN 7.3 GM/DL (6.4-8.2)
[2019-10-15] MEDS ORDERED: D5 NS 1000 ML IV SOLUTION 1,000 ML IV ONE (02:59)
[2019-10-15] MEDS ORDERED: D5 NS 1000 ML IV SOLUTION 1,000 ML IV SCH ×2 (03:15→05:30)
[2019-10-15 04:15] VITALS: BP 146/85
[2019-10-15 04:30] VITALS: BP 144/72
[2019-10-15 05:00] VITALS: BP 135/68
[2019-10-15 05:04] LABS: BASOPHILS % (AUTO) 1 % (0-10); EOSINOPHILS # (AUTO) 0.3 10^3/uL (0.0-0.3); EOSINOPHILS % (AUTO) 5 % (0-10); HEMATOCRIT 32 % (40-54); HEMOGLOBIN 10.7 G/DL (13.3-17.7); LYMPHOCYTES # (AUTO) 1.8 X 10^3 (1.0-4.0); LYMPHOCYTES % (AUTO) 30 % (12-44); MEAN CORPUSCULAR HEMOGLOBIN 33 PG (25-34); MEAN CORPUSCULAR HGB CONC 33 G/DL (32-36); MEAN CORPUSCULAR VOLUME 99 FL (80-99); MEAN PLATELET VOLUME 9.5 FL (7.4-10.4); MONOCYTES # (AUTO) 0.9 X 10^3 (0.0-1.0); MONOCYTES % (AUTO) 14 % (0-12); NEUTROPHILS # (AUTO) 3.1 X 10^3 (1.8-7.8); NEUTROPHILS % (AUTO) 51 % (42-75); PLATELET COUNT 179 10^3/uL (130-400); RED CELL DISTRIBUTION WIDTH 14.8 % (10.0-14.5); WHITE BLOOD COUNT 6.1 10^3/uL (4.3-11.0)
[2019-10-15 05:24] LABS: ALBUMIN 3.1 GM/DL (3.2-4.5); BILIRUBIN,TOTAL 0.9 MG/DL (0.1-1.0); CALCIUM 8.7 MG/DL (8.5-10.1); CREATININE SERUM 1.55 MG/DL (0.60-1.30); POTASSIUM 4.1 MMOL/L (3.6-5.0); TOTAL PROTEIN 7.1 GM/DL (6.4-8.2)
[2019-10-15] MEDS ORDERED: ONDANSETRON 4 MG/2 ML (SDV) Z0FRAN IV PRN (05:30)
[2019-10-15 06:00] VITALS: BP 131/70
[2019-10-15] MEDS ORDERED: inSUlin ASPART (NovoLOG) 1 UNIT/0.01 ML (CHARGE PER UNIT) SC SCH (06:00)
[2019-10-15] MEDS ORDERED: FUROSEMIDE 20 MG (LASIX) TAB PO SCH (07:00)
[2019-10-15] MEDS ORDERED: traZODone 50 MG (DESYREL) TAB PO PRN (07:15)
[2019-10-15] MEDS ORDERED: CATHETER FLUSH 10 ML SYR IV PRN (07:15)
[2019-10-15] MEDS ORDERED: PATIENT MAY USE OWN MEDS, ALL MC SCH (07:15)
[2019-10-15 08:37] VITALS: BP 126/62
[2019-10-15] MEDS ORDERED: RIFAXIMIN 550 MG TABLET (XIFAXAN) PO SCH (09:00)
[2019-10-15] MEDS ORDERED: LACTULOSE SYRUP 10GM/15ML (ENULOSE) 30ML UDC PO SCH (09:00)
[2019-10-15] MEDS ORDERED: meTOprolol TARTRATE 50 MG (LOPRESSOR) TAB PO SCH (09:00)
[2019-10-15] MEDS ORDERED: PANTOPRAZOLE 20 MG TABLET (PROTONIX) PO SCH (09:00)
--- NOTE | 2019-10-15 11:07 | Short Stay Summary-Hospitalist ---
History of Present Illness HPI/Chief Complaint CC: Hypoglycemia HPI: This is a 69yoWM of [facility] who accidentally took his rapid acting insulin last night and suffered a great deal of hypoglycemia worsened due to the creatinine of 1.7, so he was admitted, placed on a gentle D5 drip and is ready to go home without any changes to his medications. I did recommendputting red tape around the rapid acting insulin so that he knows and will try not to take that instead of the long acting at night. Source: patient, family, RN/MD Exam Limitations: no limitations Date Seen 10/15/19 Time Seen by a Provider: 10:00 Attending Physician Ria Rehman Julie A MD Referring Physician Date of Admission Oct 15, 2019 at 03:10 Home Medications & Allergies Home Medications Reviewed patient Home Medication Reconciliation performed by pharmacy medication reconciliations radio electronics technician and/or nursing. Patients Allergies have been reviewed. Allergies Allergies Coded Allergies No Known Drug Allergies (Verified10/01/19) Past Acmcssx-Obtful-Gpjdsd Hx Past Med/Social Hx: Reviewed Nursing Past Med/Soc Hx, Reviewed and Corrections made Patient Social History Marrital Status: Employed/Student: retired Alcohol Use: Denies Use Recreational Drug Use: Yes Drug of Choice: THC Smoking Status: Former Smoker Former Smoker, Quit: Sep 29, 2004 Type Used: Cigarettes 2nd Hand Smoke Exposure: Yes Recent Foreign Travel: No Contact w/other who traveled: No Recent Hopitalizations: Yes (MULTI E.D. VISITS/RECENT DC FROM [facility]) Recent Infectious Disease Expo: No Immunizations Up To Date Tetanus Booster (TDap): Unknown Date of Pneumonia Vaccine: Jul 15, 2019 Date of Influenza Vaccine: Aug 05, 2019 Seasonal Allergies Seasonal Allergies: No Past Medical History Surgeries: Abdominal Currently Using CPAP: No Currently Using BIPAP: No Cardiac: Aneurysm, High Cholesterol, Hypertension Neurological: Dementia, Headaches /Migraines Reproductive: No Sexually Transmitted Disease: No HIV/AIDS: No Gastrointestinal: Gastroesophageal Reflux, Liver Disease/Jaundice, Cirrhosis Musculoskeletal: Arthritis, Chronic Back Pain Endocrine: Diabetes, Insulin dep Loss of Vision: Denies Hearing Impairment: Denies Psychosocial: Sleep Difficulties History of Blood Disorders: No Adverse Reaction to Blood Sellers: No (N/A) Family History Deafness or hearing loss 19 MOTHER, Onset:Unknown Diabetes mellitus 19 FATHER, Onset:Unknown G8 BROTHER, Onset:Unknown G8 SISTER, Onset:Unknown Hypertension 19 FATHER, Onset:Unknown G8 SISTER, Onset:Unknown Diabetes, Hypertension, Other Conditions/Hx Review of Systems Constitutional: see HPI, weakness Physical Exam Physical Exam Vital Signs Vital Signs - First Documented 10/15/19 01:50 Temp 36.0 Pulse 74 Resp 18 B/P (MAP) 127/82 (97) Pulse Ox 97 O2 Delivery Room Air Capillary Refill : Less Than 3 Seconds Height, Weight, BMI Height: 5'9.00" Weight: 239lbs. 12.8oz. 108.161056il; 37.22 BMI Method:Stated General Appearance: No Apparent Distress, Chronically ill, Obese Eyes: Bilateral Eye Normal Inspection, Bilateral Eye PERRL, Bilateral Eye EOMI HEENT: PERRL/EOMI, TMs Normal, Normal ENT Inspection, Pharynx Normal, Moist Mucous Membranes Respiratory: Lungs Clear, Normal Breath Sounds, No Accessory Muscle Use, No Respiratory Distress Cardiovascular: Regular Rate, Rhythm, Normal Peripheral Pulses Gastrointestinal: Normal Bowel Sounds, Non Tender, Soft Extremity: Normal Capillary Refill, Normal Inspection, No Pedal Edema Neurologic/Psychiatric: Alert, Oriented x3, No Motor/Sensory Deficits Skin: Normal Color, Warm/Dry Results Results/Procedures Labs Laboratory Tests 10/15/19 01:55 10/15/19 04:54 Patient resulted labs reviewed. Short Stay Diagnosis Discharge Diagnosis-Short Stay Admission Diagnosis Hypoglycemia due to insulin Final Discharge Diagnosis Hypoglycemia due to insulin Conclusion Plan DC home Diagnosis/Problems Diagnosis/Problems (1) Insulin overdose Status: Acute Qualifiers: Qualified Codes: T38.3X1A - Poisoning by insulin and oral hypoglycemic [antidiabetic] drugs, accidental (unintentional), initial encounter Clinical Quality Measures DVT/VTE Risk/Contraindication: Risk Factor Score Per Nursin RFS Level Per Nursing on Admit: 4+=Very High RIA REHMAN DO Oct 15, 2019 11:07
[2019-10-15] MEDS ORDERED: ALBU2.5V4 NEB (11:09)
[2019-10-15] MEDS ORDERED: CARB-254 OU (11:09)
[2019-10-15] MEDS ORDERED: ALBU18HF2 INH (11:09)
[2019-10-15] MEDS ORDERED: BUDE10.2 INH (11:09)
--- NOTE | 2019-10-15 11:09 | NUR ---
WENT OVER THE EXT MED HX WITH THE PATIENT AND FAMILY. THEY VERIFIED HOW HE TAKES EACH MEDICATION. HE USES EYE DROPS OTC NEEDED FOR DRY EYES.
[2019-10-15 12:00] VITALS: BP 158/82
[2019-10-15] MEDS ORDERED: SERTRALINE 50 MG (ZOLOFT) TABLET PO SCH (21:00)
== END 2019-10-15 11:55 | disposition home or self-care (01) ==
LOC: EDUNIT# 01:11 → ER 01:14 → ICU 03:10
PROVIDERS: ADMIT Internal Medicine; ATTEND Internal Medicine
DX: T38.3X1A Poisoning by insulin and oral hypoglycemic [antidiabetic] drugs, accidental (unintentional), initial encounter (principal); E11.9 Type 2 diabetes mellitus without complications; K74.60 Unspecified cirrhosis of liver; E78.00 Pure hypercholesterolemia, unspecified; F03.90 Unspecified dementia, unspecified severity, without behavioral disturbance, psychotic disturbance, mood disturbance, and anxiety; I10 Essential (primary) hypertension; G43.909 Migraine, unspecified, not intractable, without status migrainosus; K21.9 Gastro-esophageal reflux disease without esophagitis; M19.91 Primary osteoarthritis, unspecified site; M54.9 Dorsalgia, unspecified; J44.9 Chronic obstructive pulmonary disease, unspecified; Z79.4 Long term (current) use of insulin; Z79.899 Other long term (current) drug therapy; Z87.891 Personal history of nicotine dependence
CPT/HCPCS: 36415; 80053; 81000; 82962; 85025

== ENCOUNTER → 2019-12-07 | Outpatient (CLI) | payer MEDICARE, MEDICAID ==
[~2019-12-07] MED LIST changes: +ALBU18HF2 INH; +ALBU2.5V4 NEB; +BUDE10.2 INH; +CARB-254 OU; +HOLD METFORMIN - RECEIVED CONTRAST 20 ML VIAL IV SCH; +IOHEXOL 350 MG/ML 100 ML (OMNIPAQUE 350) VIAL IV ONE; +NS 100 ML (IVPB) BAG IV ONE; -OMEP-280 PO; +OMEP20CA18 PO; +ONDA-105 PO; -ONDA4TAB10 PO
[2019-12-07 11:00] LABS: CREATININE SERUM 1.56 MG/DL (0.60-1.30)
--- NOTE | 2019-12-07 13:28 | Diagnostic Imaging Report ---
PROCEDURE: CT angiography of the chest with contrast. TECHNIQUE: Multiple contiguous axial images were obtained through the chest after uneventful bolus administration of intravenous contrast. 3D reconstructed CTA MIP acquisitions were also performed. Auto Exposure Controls were utilized during the CT exam to meet ALARA standards for radiation dose reduction. INDICATION: Shortness of breath. COPD. History of thoracic aortic aneurysm. COMPARISON: CTA chest on 04/03/2019. FINDINGS: Stable appearance of the mildly ectatic ascending thoracic aorta. This measures approximately 4.4 cm on today's exam. No evidence of periaortic inflammation or mediastinal hematoma. A small amount of atherosclerotic plaque is seen in the thoracic aorta. The heart size is normal. No pericardial effusion. No mediastinal lymphadenopathy. No focal consolidation, suspicious pulmonary nodules, or pulmonary masses are seen. A small amount of subsegmental atelectasis is seen in the lung bases. Mild bronchial wall thickening is seen. No central endobronchial obstructing lesions. No pleural effusion or pneumothorax. No acute osseous abnormalities in the chest. There is a nodular contour of the liver, consistent with cirrhosis. No focal hepatic lesions are seen. Splenomegaly is noted. Both adrenal glands have a normal appearance. IMPRESSION: 1. Stable mildly ectatic ascending thoracic aorta. No periaortic inflammation or mediastinal hematoma. 2. No focal consolidation or suspicious pulmonary nodules. 3. Bronchial wall thickening, which can be seen with bronchitis/bronchiolitis. 4. Redemonstration of liver cirrhosis. Splenomegaly is also present. No ascites is seen in the upper abdomen. Dictated by: Dictated on workstation # [id number]
== END ==
LOC: CARD 10:27
PROVIDERS: ATTEND Internal Medicine Cardiovascular Disease
DX: I08.0 Rheumatic disorders of both mitral and aortic valves (principal); J98.09 Other diseases of bronchus, not elsewhere classified; K76.0 Fatty (change of) liver, not elsewhere classified; R16.1 Splenomegaly, not elsewhere classified; I71.2 Thoracic aortic aneurysm, without rupture; J44.9 Chronic obstructive pulmonary disease, unspecified; I65.23 Occlusion and stenosis of bilateral carotid arteries
CPT/HCPCS: 36415; 71275; 82565; 84520; 93306

== ENCOUNTER 2020-10-06 05:32 | Outpatient (RCR) | payer MEDICARE, MEDICAID ==
[~2020-10-06] VITALS: Ht 175.3 cm; Wt 101.8 kg
[~2020-10-06 05:32] MED LIST changes: +DULA1.5P2 SQ; -HOLD METFORMIN - RECEIVED CONTRAST 20 ML VIAL IV SCH; -IOHEXOL 350 MG/ML 100 ML (OMNIPAQUE 350) VIAL IV ONE; +NABU-88 PO; -NABU500T PO; -NS 100 ML (IVPB) BAG IV ONE; +SERT100T8 PO
[2020-10-09] MEDS ORDERED: DOCU-143 PO (08:52)
[2020-10-09] MEDS ORDERED: HYDR-4226 PO (08:52)
== END 2020-10-06 11:02 | disposition home or self-care (01) ==
LOC: PREOP 05:32
PROVIDERS: ATTEND Surgery
DX: Z01.812 Encounter for preprocedural laboratory examination (principal); K64.8 Other hemorrhoids; Z20.822 Contact with and (suspected) exposure to COVID-19
CPT/HCPCS: 87635

== ENCOUNTER 2020-10-09 06:14 | Day surgery (SDC) | payer MEDICARE, MEDICAID ==
[~2020-10-09] VITALS: Ht 175.3 cm; Wt 101.8 kg
[2020-10-09] VITALS (10 sets, daily range): BP systolic 88–135; BP diastolic 50–72
[2020-10-09] MEDS ORDERED: ceFAZolin 2 GM IV Premixed 50 ML IV ONE (06:30)
[2020-10-09] MEDS ORDERED: ONDANSETRON 4 MG/2 ML (SDV) Z0FRAN IV ONE (07:00)
[2020-10-09] MEDS ORDERED: FAMOTIDINE 20MG/2ML IV (PEPCID) IV ONE (07:00)
[2020-10-09] MEDS ORDERED: LACTATED RINGERS 1,000 ML IV PRN (07:00)
[2020-10-09] MEDS ORDERED: ONDANSETRON 4 MG/2 ML (SDV) Z0FRAN ONE ×2 (07:09→07:18)
[2020-10-09] MEDS ORDERED: ceFAZolin 2 GM IV Premixed 50 ML ONE (07:09)
[2020-10-09] MEDS ORDERED: LIDOCAINE/EPI 1%-1:200,000 (XYLOCAINE) 30 ML VIAL ONE (07:09)
[2020-10-09] MEDS ORDERED: FAMOTIDINE 20MG/2ML IV (PEPCID) ONE (07:10)
[2020-10-09] MEDS ORDERED: LIDOCAINE PF 2% 5 ML (XYLOCAINE) VIAL ONE (07:18)
[2020-10-09] MEDS ORDERED: proPOfol 200 MG/20 ML (DIPRIVAN) VIAL IV ONE (07:18)
[2020-10-09] MEDS ORDERED: SEVOFLURANE (ULTANE) 15 ML INHAL SOLN ONE (07:18)
[2020-10-09] MEDS ORDERED: MIDAZOLAM 2 MG/2 ML (VERSED) VIAL ONE (07:19)
[2020-10-09] MEDS ORDERED: fentaNYL INJECTION 100 MCG/2 ML AMP ONE (07:19)
--- NOTE | 2020-10-09 07:58 | Progress Note-Pre Operative ---
Pre-Operative Progress Note H&P Reviewed The H&P was reviewed, patient examined and no changes noted. Date Seen by Provider: Oct 09, 2020 Time Seen by Provider: 07:38 Date H&P Reviewed: Oct 09, 2020 Time H&P Reviewed: 07:38 Pre-Operative Diagnosis: hemorrhoids ELIESER VAZQUEZ DO Oct 09, 2020 07:58
[2020-10-09] MEDS ORDERED: DOCU-143 PO (08:52)
[2020-10-09] MEDS ORDERED: HYDR-4226 PO (08:52)
--- NOTE | 2020-10-09 08:55 | Discharge Inst-Simple/Standard ---
Discharge Inst-Standard Discharge Medications New, Converted or Re-Newed RX: RX on Chart Patient Instructions/Follow Up Plan of Care/Instructions/FU: 2-3 WEEKS TAYLOR Activity as Tolerated: Yes Discharge Diet: Regular Diet Other Inst to Patient Follow up Appt: Make appointment for 2-3 week. Instructions: No lifting greater than 10 pounds. No strenuous activity. May shower in 24 hours, no tub bath or soaking. Use incentive spirometer at home as directed. No Smoking Skin/Wound Care: If anal plug has not been removed in 24 hours remove. Keep stools soft. If no bowel movement in 48 hours can take some Miralax as directed on bottle (over the counter). Symptoms to Report: Appetite Changes, Extremity Discoloration, Numbness/Tingling, Swelling Increased, Bleeding Excessive, Eyesight Changes, Pain Increased, Urine Color Change, Constipation(Persistent), Fever over 101 degree F, Pain/Pressure in chest, Urinating Difficulty, Cough Up/Vomit Blood, Heart Beat Irreg/Pounding, Pain/Pressure in jaw, Vaginal Bleeding Increase, Cramps in feet or legs, Lig htheadedness, Pain/Pressure in shoulder, Diarrhea(Persistent), Memory Changes Suddenly, Questions/Concerns, Weight gain consecutive days, Dizziness/Fainting, Nausea/Vomiting, Shortness of Breath, Weight gain over 2 pounds If questions or concerns contact your physician Or seek help at emergency department. ELIESER VAZQUEZ DO Oct 09, 2020 08:55
--- NOTE | 2020-10-09 08:57 | Progress Note-Post Operative ---
Post-Operative Progess Note Surgeon (s)/Radiologist Physician (s) Surgeon ELIESER VAZQUEZ DO Radiologist Physician: na Pre-Operative Diagnosis hemorrhoids Post-Operative Diagnosis same Procedure & Operative Findings Date of Procedure 10/09/20 Procedure Performed/Findings exam under anesthesia, left lateral and right anterior hemorrhoidectomy Anesthesia Type general Estimated Blood Loss Estimated blood loss (mL): min Specimens/Packing Specimens Removed hemorrhoids ELIESER VAZQUEZ DO Oct 09, 2020 08:57
--- NOTE | 2020-10-09 09:01 | Anesthesia-General Post-Op ---
General Patient Condition Mental Status/LOC: Same as Preop Cardiovascular: Satisfactory Nausea/Vomiting: Absent Respiratory: Satisfactory Pain: Controlled Complications: Absent Post Op Complications Complications None Follow Up Care/Instructions Patient Instructions None needed. Anesthesia/Patient Condition Patient Condition Patient is doing well, no complaints, stable vital signs, no apparent adverse anesthesia problems. No complications reported per nursing. KARAN OSPINA CRNA Oct 09, 2020 09:01
[2020-10-09] MEDS ORDERED: MEPERIDINE (DEMEROL) INJ 50 MG/ML IVP ONE (09:15)
[2020-10-09] MEDS ORDERED: morphine INJ 10 MG/ML 1ML (SYR OR VIAL) IVP ONE (09:15)
[2020-10-09] MEDS ORDERED: ONDANSETRON 4 MG/2 ML (SDV) Z0FRAN IVP PRN (09:15)
[2020-10-09] MEDS ORDERED: HYDROcodone/APAP 5 MG/325 MG (LORTAB) TAB ONE (10:20)
[2020-10-09] MEDS ORDERED: HYDROcodone/APAP 5 MG/325 MG (LORTAB) TAB PO ONE (10:30)
--- NOTE | 2020-10-11 03:10 | OPERATIVE REPORT ---
DATE OF SERVICE: 10/09/2020 PREOPERATIVE DIAGNOSIS: Hemorrhoids. POSTOPERATIVE DIAGNOSIS: Hemorrhoids. PROCEDURE: Exam under anesthesia, left lateral and right anterior hemorrhoidectomy. SURGEON: Elieser Maldonado DO ANESTHESIA: General. ESTIMATED BLOOD LOSS: Minimal. COMPLICATIONS: None. SPECIMENS: Hemorrhoids. INDICATIONS: The patient is a 70-year-old male with large bothersome hemorrhoids. He understands risks and benefits of procedure and wished to proceed with procedure. Consent was signed in the chart. DESCRIPTION OF PROCEDURE: The patient was taken to the operating suite, placed in lithotomy position, prepped and draped in sterile fashion. Timeout was performed. Exam under anesthesia was performed. Digital rectal exam was performed noting a large hemorrhoidal disease specifically the left lateral and right anterior hemorrhoid complex. No palpable polyps, masses or ulcerations. The left lateral hemorrhoid complex was then grasped, external and internal component was removed using Harmonic. The defect was then closed using 3-0 Vicryl suture. The right anterior hemorrhoid complex was then grasped and the external and internal component was removed. A 3-0 Vicryl was then used to close the defect. No other pathology noted. Hemostasis was achieved. Local anesthetic was infiltrated as well. A plug assist with pressure hemostasis was inserted into the anus and the area was then washed and dried and sterile bandages were applied. The patient tolerated procedure well without any complications, taken to recovery room in stable condition. Job ID: [id number] DocumentID: [id number] Dictated Date: 10/10/2020 19:21:35 Tool Crib Attendant Date: 10/11/2020 03:09:04 Dictated By: ELIESER MALDONADO DO
== END 2020-10-09 11:32 | disposition home or self-care (01) ==
LOC: SDC 06:14
PROVIDERS: ATTEND Surgery
DX: K64.5 Perianal venous thrombosis (principal); K64.2 Third degree hemorrhoids; K62.5 Hemorrhage of anus and rectum; I10 Essential (primary) hypertension; J44.9 Chronic obstructive pulmonary disease, unspecified; G43.909 Migraine, unspecified, not intractable, without status migrainosus; K21.9 Gastro-esophageal reflux disease without esophagitis; E11.9 Type 2 diabetes mellitus without complications; E66.9 Obesity, unspecified; Z68.33 Body mass index [BMI] 33.0-33.9, adult; Z79.51 Long term (current) use of inhaled steroids; Z79.899 Other long term (current) drug therapy; Z88.5 Allergy status to narcotic agent; Z87.891 Personal history of nicotine dependence
CPT/HCPCS: 82962; 87081; 88304

== ENCOUNTER 2020-10-23 13:10 | Emergency (ER) | payer MEDICARE, MEDICAID ==
[~2020-10-23] VITALS: Ht 188 cm; Wt 95.5 kg
[~2020-10-23 13:10] MED LIST changes: +DOCU-143 PO; +HYDR-4226 PO
[2020-10-23] MEDS ORDERED: LACTATED RINGERS 1,000 ML IV STA (13:36)
--- NOTE | 2020-10-23 13:36 | ED General ---
General Stated Complaint: S/P HEMORRHOID SX History of Present Illness Date Seen by Provider: Oct 23, 2020 Time Seen by Provider: 13:35 Initial Comments 70-year-old male brought in by a caregiver. They report that he had hemorrhoid surgery on 10/09/2020. Since then he has had difficulty with nausea vomiting with poor p.o. intake. That he dry heaves frequently. When he drinks he spits up. Patient complains of some pain in his left lower quadrant. Patient has known liver cirrhosis, is mildly confused. No reports of any fevers chills cough or chest pain. HPI is very limited Allergies and Home Medications Allergies Coded Allergies: No Known Drug Allergies (Verified , 10/01/19) Home Medications Albuterol Sulfate 2.5 Mg/3 Ml Vial.neb, 2.5 MG NEB Q4H PRN for SHORTNESS OF BREATH, (Reported) Albuterol Sulfate 18 Gm Hfa.aer.ad, 2 PUFF INH Q4H PRN for SHORTNESS OF BREATH, (Reported) Carboxymethylcellulose Sodium 15 Ml Drops, 1-2 DROPS OU TID PRN for DRY EYES, (Reported) Docusate Sodium 100 Mg Capsule, 100 MG PO BID Prescribed by: ELIESER VAZQUEZ on 10/09/20 0852 Dulaglutide 1.5 Mg/0.5 Ml Pen.injctr, 1.5 MG SQ WEEK, (Reported) Furosemide 20 Mg Tablet, 20 MG PO DAILY, (Reported) Hydrocodone/Acetaminophen 1 Each Tablet, 1 TAB PO Q4-6HR Prescribed by: ELIESER VAZQUEZ on 10/09/20 0852 Insulin Aspart 300 Units/3 Ml Solution, 6-10 UNITS SQ TIDWM, (Reported) Insulin Detemir 100 Unit/1 Ml Insuln.pen, 30 UNIT SQ BID, (Reported) Lactulose 10 Gm/15 Ml Solution, 15 ML PO TID, (Reported) Metoprolol Tartrate 50 Mg Tablet, 50 MG PO BID, (Reported) Omeprazole 20 Mg Capsule.dr, 20 MG PO DAILY, (Reported) Ondansetron 4 Mg Tab.rapdis, 4 MG SL TID PRN for NAUSEA/VOMITING-1ST LINE, (Reported) Ondansetron 4 Mg Tab.rapdis, 4 MG PO Q6H PRN for NAUSEA/VOMITING Prescribed by: MONICA HEAD on 10/23/20 1634 Rifaximin 550 Mg Tablet, 550 MG PO BID, (Reported) Sertraline HCl 100 Mg Tablet, 100 MG PO HS, (Reported) Trazodone HCl 50 Mg Tablet, 50 MG PO HS, (Reported) Patient Home Medication List Home Medication List Reviewed: Yes Review of Systems Review of Systems Constitutional: No chills, No fever; malaise Respiratory: No cough, No short of breath Cardiovascular: No chest pain, No palpitations Gastrointestinal: abdominal pain; No diarrhea; loss of appetite, nausea, vomiting Genitourinary: no symptoms reported Musculoskeletal: no symptoms reported Skin: no symptoms reported Psychiatric/Neurological: No Symptoms Reported Hematologic/Lymphatic: No Symptoms Reported Past Uioongs-Gxulpf-Afpqkk Hx Past Med/Social Hx: Reviewed Nursing Past Med/Soc Hx Patient Social History Drug of Choice: THC Type Used: Cigarettes Former Smoker, Quit: Sep 29, 2004 2nd Hand Smoke Exposure: Yes Recent Hopitalizations: No Immunizations Up To Date Tetanus Booster (TDap): Unknown PED Vaccines UTD: No Date of Pneumonia Vaccine: Jul 15, 2019 Date of Influenza Vaccine: Aug 05, 2020 Seasonal Allergies Seasonal Allergies: No Past Medical History Surgeries: Yes (LIVER BIOPSY X 2; HERNIA REPAIR) Abdominal Respiratory: Yes COPD Currently Using CPAP: No Currently Using BIPAP: No Cardiac: Yes Aneurysm, High Cholesterol, Hypertension Neurological: Yes (tremors-getting tested for parkinson's in November) Dementia, Headaches /Migraines Reproductive Disorders: No Sexually Transmitted Disease: No HIV/AIDS: No Genitourinary: No Gastrointestinal: Yes Gastroesophageal Reflux, Liver Disease/Jaundice, Hemorrhoids, Cirrhosis Musculoskeletal: Yes (joint pain, restless legs, unsteady gait) Arthritis, Chronic Back Pain Endocrine: Yes Diabetes, Insulin dep HEENT: Yes (GLASSES, cataracts removed, no teeth no dentures) Loss of Vision: Denies Hearing Impairment: Denies, Hard of Hearing, Bilateral Hearing Aide Cancer: No Psychosocial: Yes Sleep Difficulties, Anxiety, Depression Integumentary: No Blood Disorders: No Adverse Reaction/Blood Tranf: No (N/A) Family Medical History Deafness or hearing loss 19 MOTHER, Onset:Unknown Diabetes mellitus 19 FATHER, Onset:Unknown G8 BROTHER, Onset:Unknown G8 SISTER, Onset:Unknown Hypertension 19 FATHER, Onset:Unknown G8 SISTER, Onset:Unknown Diabetes, Hypertension, Other Conditions/Hx Physical Exam Vital Signs Vital Signs - First Documented 10/23/20 13:25 Temp 36.8 Pulse 70 Resp 18 B/P (MAP) 95/65 (75) Pulse Ox 100 O2 Delivery Room Air Capillary Refill : Height, Weight, BMI Height: 5'9.00" Weight: 239lbs. 12.8oz. 108.694424hk; 33.12 BMI Method:Stated General Appearance: No Apparent Distress, WD/WN HEENT: PERRL/EOMI Neck: Normal Inspection Respiratory: Lungs Clear, Normal Breath Sounds Cardiovascular: Regular Rate, Rhythm, No Edema Gastrointestinal: Soft, Tenderness (Left lower quadrant) Back: No CVA Tenderness, No Vertebral Tenderness Extremity: Normal Capillary Refill, Normal Inspection, Normal Range of Motion Neurologic/Psychiatric: Alert, Oriented x3, Normal Mood/Affect, insert cutter II-XII Norm as Tested Skin: Jaundice Focused Exam Lactate Level 10/23/20 13:58: Lactic Acid Level 1.22 Lactic Acid Level Laboratory Tests Test 10/23/20 13:58 Lactic Acid Level 1.22 MMOL/L (0.50-2.00) Progress/Results/Core Measures Suspected Sepsis SIRS Temperature: Pulse: Respiratory Rate: Laboratory Tests 10/23/20 13:58: White Blood Count 6.6 Blood Pressure / Mean: 10/23/20 13:58: Lactic Acid Level 1.22 Laboratory Tests 10/23/20 13:58: Creatinine 1.52H, Platelet Count 197, Total Bilirubin 2.4H Results/Orders Lab Results Laboratory Tests Test 10/23/20 13:58 10/23/20 15:08 Range/Units White Blood Count 6.6 4.3-11.0 10^3/uL Red Blood Count 2.62 L 4.30-5.52 10^6/uL Hemoglobin 9.4 L 13.3-17.7 g/dL Hematocrit 28 L 40-54 % Mean Corpuscular Volume 107 H 80-99 fL Mean Corpuscular Hemoglobin 36 H 25-34 pg Mean Corpuscular Hemoglobin Concent 34 32-36 g/dL Red Cell Distribution Width 15.2 H 10.0-14.5 % Platelet Count 197 130-400 10^3/uL Mean Platelet Volume 9.3 9.0-12.2 fL Immature Granulocyte % (Auto) 0 % Neutrophils (%) (Auto) 49 42-75 % Lymphocytes (%) (Auto) 37 12-44 % Monocytes (%) (Auto) 9 0-12 % Eosinophils (%) (Auto) 4 0-10 % Basophils (%) (Auto) 1 0-10 % Neutrophils # (Auto) 3.2 1.8-7.8 X 10^3 Lymphocytes # (Auto) 2.4 1.0-4.0 X 10^3 Monocytes # (Auto) 0.6 0.0-1.0 X 10^3 Eosinophils # (Auto) 0.3 0.0-0.3 10^3/uL Basophils # (Auto) 0.0 0.0-0.1 10^3/uL Immature Granulocyte # (Auto) 0.0 0.0-0.1 10^3/uL Sodium Level 136 135-145 MMOL/L Potassium Level 4.1 3.6-5.0 MMOL/L Chloride Level 106 98-107 MMOL/L Carbon Dioxide Level 22 21-32 MMOL/L Anion Gap 8 5-14 MMOL/L Blood Urea Nitrogen 15 7-18 MG/DL Creatinine 1.52 H 0.60-1.30 MG/DL Estimat Glomerular Filtration Rate 45 BUN/Creatinine Ratio 10 Glucose Level 72 70-105 MG/DL Lactic Acid Level 1.22 0.50-2.00 MMOL/L Calcium Level 8.4 L 8.5-10.1 MG/DL Corrected Calcium 9.2 8.5-10.1 MG/DL Total Bilirubin 2.4 H 0.1-1.0 MG/DL Aspartate Amino Transf (AST/SGOT) 84 H 5-34 U/L Alanine Aminotransferase (ALT/SGPT) 39 0-55 U/L Alkaline Phosphatase 120 40-136 U/L Ammonia 43 H 11-32 UMOL/L C-Reactive Protein High Sensitivity 0.88 H 0.00-0.50 MG/DL Total Protein 6.8 6.4-8.2 GM/DL Albumin 3.0 L 3.2-4.5 GM/DL Lipase 58 8-78 U/L Smear Scan YES Urine Color YELLOW Urine Clarity CLEAR Urine pH 6.0 5-9 Urine Specific [place] 1.015 L 1.016-1.022 Urine Protein NEGATIVE NEGATIVE Urine Glucose (UA) NEGATIVE NEGATIVE Urine Ketones NEGATIVE NEGATIVE Urine Nitrite NEGATIVE NEGATIVE Urine Bilirubin NEGATIVE NEGATIVE Urine Urobilinogen 0.2 < = 1.0 MG/DL Urine Leukocyte Esterase NEGATIVE NEGATIVE Urine RBC (Auto) NEGATIVE NEGATIVE Urine RBC NONE /HPF Urine WBC RARE /HPF Urine Squamous Epithelial Cells RARE /HPF Urine Crystals NONE /LPF Urine Bacteria TRACE /HPF Urine Casts PRESENT /LPF Urine Hyaline Casts 10-25 H /LPF Urine Mucus SMALL H /LPF Urine Culture Indicated NO My Orders Orders - HEAD,MONICA L DO Cbc With Automated Diff (10/23/20 13:36) Comprehensive Metabolic Panel (10/23/20 13:36) Hs C Reactive Protein (10/23/20 13:36) Lipase (10/23/20 13:36) Ua Culture If Indicated (10/23/20 13:36) Ondansetron Injection (Zofran Injectio (10/23/20 13:45) Lactated Ringers (Lr 1000 Ml Iv Solution (10/23/20 13:36) Ed Iv/Invasive Line Start (10/23/20 13:36) Acute Abd Series (10/23/20 13:36) Ammonia (10/23/20 13:38) Lactic Acid Analyzer (10/23/20 13:51) Ct Abdomen/Pelvis W (10/23/20 14:33) Iohexol Injection (Omnipaque 350 Mg/Ml 1 (10/23/20 14:45) Received Contrast (Hold Metformin- Contr (10/23/20 14:45) Sodium Chloride Flush (Catheter Flush Sy (10/23/20 14:45) Ns (Ivpb) (Sodium Chloride 0.9% Ivpb Bag (10/23/20 14:45) Medications Given in ED Current Medications Medications Dose Ordered Sig/Marly Route Start Time Stop Time Status Last Admin Dose Admin Iohexol 100 ml ONCE ONCE IV 10/23/20 14:45 10/23/20 14:46 DC 10/23/20 15:22 75 ML Ondansetron HCl 4 mg ONCE ONCE IVP 10/23/20 13:45 10/23/20 13:46 DC 10/23/20 14:05 4 MG Sodium Chloride 10 ml NEEDED PRN IV 10/23/20 14:45 10/23/20 16:58 DC 10/23/20 15:22 10 ML Sodium Chloride 100 ml ONCE ONCE IV 10/23/20 14:45 10/23/20 14:46 DC 10/23/20 15:22 80 ML Vital Signs/I&O 10/23/20 10/23/20 13:25 16:55 Temp 36.8 Pulse 70 77 Resp 18 18 B/P (MAP) 95/65 (75) 129/59 Pulse Ox 100 99 O2 Delivery Room Air Room Air Capillary Refill : Progress Note : Time: 16:30 Progress Note Patient with no significant acute changes to his baseline labs. Patient does have some mild ascites that has developed with his known liver cirrhosis. Called and discussed findings with his primary care provider Dr. Ronald Kelley. We are going to stop his Trulicity, they will follow-up with him later this week. I will give him some nausea medication such as Zofran. He will be discharged home in stable condition for further outpatient evaluation and follow-up as needed Departure Impression Primary Impression: Nausea and vomiting Qualified Codes: R11.2 - Nausea with vomiting, unspecified Additional Impressions: Abnormal weight loss Cirrhosis of liver with ascites Qualified Codes: K74.60 - Unspecified cirrhosis of liver; R18.8 - Other ascites Disposition: 01 HOME, SELF-CARE Condition: Stable Departure-Patient Inst. Referrals: RONALD KELLEY MD (PCP/Family) Primary Care Physician Patient Instructions: Abdominal Pain, Adult ED, Nausea and Vomiting, Adult ED, Cirrhosis Add. Discharge Instructions: Please stop taking Trulicity follow-up with Dr. Kelley's office for further outpatient management and evaluation as needed Scripts Ondansetron (Ondansetron Odt) 4 Mg Tab.rapdis 4 MG PO Q6H PRN for NAUSEA/VOMITING, #20 TAB 0 Refills Prov: MONICA HEAD DO 10/23/20 MONICA HEAD DO Oct 23, 2020 13:36
[2020-10-23] MEDS ORDERED: ONDANSETRON 4 MG/2 ML (SDV) Z0FRAN IVP ONE (13:45)
[2020-10-23 14:11] LABS: BASOPHILS % (AUTO) 1 % (0-10); EOSINOPHILS # (AUTO) 0.3 10^3/uL (0.0-0.3); EOSINOPHILS % (AUTO) 4 % (0-10); HEMATOCRIT 28 % (40-54); HEMOGLOBIN 9.4 g/dL (13.3-17.7); LYMPHOCYTES # (AUTO) 2.4 X 10^3 (1.0-4.0); LYMPHOCYTES % (AUTO) 37 % (12-44); MEAN CORPUSCULAR HEMOGLOBIN 36 pg (25-34); MEAN CORPUSCULAR HGB CONC 34 g/dL (32-36); MEAN CORPUSCULAR VOLUME 107 fL (80-99); MEAN PLATELET VOLUME 9.3 fL (9.0-12.2); MONOCYTES # (AUTO) 0.6 X 10^3 (0.0-1.0); MONOCYTES % (AUTO) 9 % (0-12); NEUTROPHILS # (AUTO) 3.2 X 10^3 (1.8-7.8); NEUTROPHILS % (AUTO) 49 % (42-75); PLATELET COUNT 197 10^3/uL (130-400); WHITE BLOOD COUNT 6.6 10^3/uL (4.3-11.0)
[2020-10-23 14:22] LABS: POTASSIUM 4.1 MMOL/L (3.6-5.0)
[2020-10-23 14:23] LABS: CALCIUM 8.4 MG/DL (8.5-10.1); SMEAR SCAN COMMENT YES
[2020-10-23 14:24] LABS: TOTAL PROTEIN 6.8 GM/DL (6.4-8.2)
[2020-10-23 14:26] LABS: BILIRUBIN,TOTAL 2.4 MG/DL (0.1-1.0)
[2020-10-23 14:28] LABS: CREATININE SERUM 1.52 MG/DL (0.60-1.30)
[2020-10-23] MEDS ORDERED: CATHETER FLUSH 10 ML SYR IV PRN (14:45)
[2020-10-23] MEDS ORDERED: HOLD METFORMIN - RECEIVED CONTRAST 20 ML VIAL IV SCH (14:45)
[2020-10-23] MEDS ORDERED: IOHEXOL 350 MG/ML 100 ML (OMNIPAQUE 350) VIAL IV ONE (14:45)
[2020-10-23] MEDS ORDERED: NS 100 ML (IVPB) BAG IV ONE (14:45)
--- NOTE | 2020-10-23 14:51 | Diagnostic Imaging Report ---
INDICATION: Hemorrhoid surgery 2 weeks ago now with pain and bleeding. Heart size normal. Lungs are clear. No infiltrates are seen. There is no free air identified on the upright view. There is some mild gaseous distention of small and large bowel loops, likely on the basis of ileus. No pathologic calcifications are seen. IMPRESSION: Mild gaseous distention of small and large bowel loops, likely on the basis of ileus. Dictated by: Dictated on workstation # [id number]
[2020-10-23 15:16] LABS: BILIRUBIN,URINE NEGATIVE (NEGATIVE); CLARITY,URINE CLEAR; COLOR,URINE YELLOW; GLUCOSE, URINE (UA) NEGATIVE (NEGATIVE); KETONES,URINE NEGATIVE (NEGATIVE); LEUKOCYTE ESTERASE ,URINE NEGATIVE (NEGATIVE); NITRITE,URINE NEGATIVE (NEGATIVE); PROTEIN,URINE NEGATIVE (NEGATIVE)
[2020-10-23 15:24] LABS: BACTERIA,URINE TRACE /HPF; SQUAMOUS EPITHELIAL CELL,UR RARE /HPF; WBC,URINE RARE /HPF
--- NOTE | 2020-10-23 15:50 | Diagnostic Imaging Report ---
PROCEDURE: CT abdomen and pelvis with contrast. TECHNIQUE: Multiple contiguous axial images were obtained through the abdomen and pelvis after administration of intravenous contrast. Auto Exposure Controls were utilized during the CT exam to meet ALARA standards for radiation dose reduction. All CT scans use one or more of the following dose optimizing techniques: automated exposure control, MA and/or KvP adjustment based on patient size and exam type or iterative reconstruction. INDICATION: Recent surgery, dry heaving, pain. COMPARISON with abdominal pelvic CT 07/18/2019. FINDINGS: There is no perianal or perirectal abscess or other acute fluid collection. Since the previous exam, there has been development of a small volume of abdominal pelvic ascites. The liver surface somewhat undulating and nodular in its morphology suggestive of underlying cirrhosis. The nonfocal spleen is at the upper limits of normal for size, stable. No bile duct dilatation. There is enhancement of the intra and extrahepatic portal veins however directional flow cannot be addressed at CT. The adrenals are negative. The pancreas unremarkable. There is no hydronephrosis. The atherosclerotic aorta is nonaneurysmal. There is noninflamed diverticulosis of the sigmoid colon. The bony structures nonacute. There are no findings of an ileus or a bowel obstruction. The lung bases nonacute. IMPRESSION: Likely cirrhotic liver with development of mild ascites and upper limits spleen size. No abscess, hematoma or other acute fluid collection found and no focal inflammatory process identified Dictated by: Dictated on workstation # [id number]
[2020-10-23] MEDS ORDERED: ONDA4TAB11 PO (16:34)
--- NOTE | 2020-10-23 16:45 | NUR ---
CALLED [facility] CAREGIVER THAT PATIENT WAS BEING DC. SHE STATED SHE WILL BE HERE IN ABOUT 30 MINUTES.
[2020-10-23 16:55] VITALS: BP 129/59
--- NOTE | 2020-10-23 17:40 | NUR ---
PT'S "CAREGIVER" GIRLFRIEND GERRY IS REFUSING TO TAKING PT HOME IF HE DOES NOT GET ANY PAIN MEDICATIONS. DAUGHTER MEGAN WAS CONTACTED AND SHE IS GOING TO CALL [facility] AND TALK TO HER. IF SHE REFUSES TO TAKE PT HOME, SHE STATED SHE WILL COME DOWN AND GET HIM.
== END 2020-10-23 16:58 | disposition home or self-care (01) ==
LOC: EDUNIT# 13:10 → ER 13:13
DX: R11.2 Nausea with vomiting, unspecified (principal); R63.4 Abnormal weight loss; K74.60 Unspecified cirrhosis of liver; R18.8 Other ascites; J44.9 Chronic obstructive pulmonary disease, unspecified; K21.9 Gastro-esophageal reflux disease without esophagitis; I10 Essential (primary) hypertension; F32.9 Major depressive disorder, single episode, unspecified; F41.9 Anxiety disorder, unspecified; G89.29 Other chronic pain; M54.9 Dorsalgia, unspecified; E11.9 Type 2 diabetes mellitus without complications; Z68.33 Body mass index [BMI] 33.0-33.9, adult; Z82.49 Family history of ischemic heart disease and other diseases of the circulatory system; Z83.3 Family history of diabetes mellitus; Z87.891 Personal history of nicotine dependence; Z79.891 Long term (current) use of opiate analgesic; Z79.4 Long term (current) use of insulin
CPT/HCPCS: 36415; 74022; 74177; 80053; 81000; 82140; 83605; 83690; 85025; 86141

== ENCOUNTER → 2020-12-28 | Outpatient (CLI) | payer MEDICARE, MEDICAID ==
[~2020-12-28] VITALS: Ht 177 cm; Wt 97.0 kg
[~2020-12-28] MED LIST changes: -CIPR500T4 PO; +CIPR500T5 PO; -LACT10SO PO; +LACT10SO3 PO; -LISI-552 PO; +LISI20TA26 PO; +ONDA4TAB11 PO; +SERT-413 PO; +SERT-414 PO; -SERT100T8 PO; -SERT50TA9 PO
[2020-12-28 13:15] VITALS: BP 121/54
== END ==
LOC: SDC 12:44
PROVIDERS: ATTEND Surgery
DX: R18.8 Other ascites (principal)
CPT/HCPCS: 49082